=== PATIENT | female | born 1945 | race Caucasian/White ===

== ENCOUNTER 2017-06-11 10:30 | Outpatient (RCR) | payer MEDICARE, SELFPAY ==
[2017-06-11 11:09] LABS: International Normalized Ratio 2.6; Prothrombin Time (Protime)PT. 26.7 SECONDS (11.7-14.9)
== END 2017-06-11 11:00 | disposition home or self-care (01) ==
LOC: LAB 10:30
PROVIDERS: Family Provider Family Medicine; PCP Family Medicine; Visit Provider Internal Medicine Cardiovascular Disease
DX: I48.0 Paroxysmal atrial fibrillation (principal); Z51.81 Encounter for therapeutic drug level monitoring; Z79.01 Long term (current) use of anticoagulants
CPT/HCPCS: 36415; 85610

== ENCOUNTER 2017-07-14 08:56 | Outpatient (RCR) | payer MEDICARE, SELFPAY ==
[2017-07-14 10:05] LABS: International Normalized Ratio 1.9; Prothrombin Time (Protime)PT. 21.2 SECONDS (11.7-14.9)
[2017-07-14 14:20] LABS: Absolute Lymphocyte Count 1.88 X10^3/ul (0.83-4.51); Absolute Neutrophil Count 2.3 X10^3/uL (2.0-7.7); Basophil# 0.03 X10^3/uL; Basophil% 0.6 % (0-1); Eosinophil# 0.15 X10^3/uL; Hematocrit 35.2 % (37-47); Hemoglobin 10.8 g/dl (12.0-15.0); Lymphocyte # 1.88 X10^3/ul (4.0); Lymphocyte % 38.2 % (19-41); Mean Corp Hgb Conc 30.7 g/gl (32-36); Mean Corpuscular Hgb 30.1 pg (27.0-32.0); Mean Corpuscular Volume 98.1 fL (81-99); Mean Platelet Vol. 10.5 fl (6.2-12.0); Monocyte# 0.52 X10^3/uL; Monocyte% 10.6 % (0-10); Neutrophil # 2.33 X10^3/uL (2.7-7.7); Neutrophil % 47.4 % (47-70); POSITIVE COUNT NO; POSITIVE DIFFERENTIAL NO; POSITIVE MORPHOLOGY NO; Platelet Count 244 K/mm3 (150-450); RBC Distribution Width CV 17.7 % (11.6-14.6); RBC Distribution Width SD 62.9 fl (35.1-43.9); Red Blood Count 3.59 M/mm3 (4.2-5.4); White Blood Count 4.9 K/mm3 (4.4-11.0)
== END 2017-07-14 09:00 | disposition home or self-care (01) ==
LOC: LAB 08:56
PROVIDERS: Physician Assistant Medical; Family Provider Family Medicine; PCP Family Medicine; Visit Provider Internal Medicine Cardiovascular Disease
DX: I48.0 Paroxysmal atrial fibrillation (principal); Z51.81 Encounter for therapeutic drug level monitoring; I50.22 Chronic systolic (congestive) heart failure
CPT/HCPCS: 36415; 85025; 85610

== ENCOUNTER 2017-07-28 11:29 | Outpatient (RCR) | payer MEDICARE, SELFPAY ==
[2017-07-28 12:30] LABS: International Normalized Ratio 2.7; Prothrombin Time (Protime)PT. 28.9 SECONDS (11.7-14.9)
== END 2017-07-28 12:00 | disposition home or self-care (01) ==
LOC: LAB 11:29
PROVIDERS: Family Provider Family Medicine; PCP Family Medicine; Visit Provider Internal Medicine Cardiovascular Disease
DX: I48.0 Paroxysmal atrial fibrillation (principal); Z51.81 Encounter for therapeutic drug level monitoring
CPT/HCPCS: 36415; 85610

== ENCOUNTER 2017-08-25 08:54 | Outpatient (RCR) | payer MEDICARE, SELFPAY ==
[2017-08-25 09:22] LABS: International Normalized Ratio 1.8; Prothrombin Time (Protime)PT. 20.7 SECONDS (11.7-14.9)
== END 2017-08-25 09:00 | disposition home or self-care (01) ==
LOC: LAB 08:54
PROVIDERS: Family Provider Family Medicine; PCP Family Medicine; Visit Provider Internal Medicine Cardiovascular Disease
DX: I48.0 Paroxysmal atrial fibrillation (principal); Z51.81 Encounter for therapeutic drug level monitoring
CPT/HCPCS: 36415; 85610

== ENCOUNTER 2017-09-16 10:15 | Outpatient (RCR) | payer MEDICARE, SELFPAY ==
[2017-09-16 11:11] LABS: International Normalized Ratio 2.8; Prothrombin Time (Protime)PT. 29.5 SECONDS (11.7-14.9)
== END 2017-09-16 11:00 | disposition home or self-care (01) ==
LOC: LAB 10:15
PROVIDERS: Family Provider Family Medicine; PCP Family Medicine; Visit Provider Internal Medicine Cardiovascular Disease
DX: I48.0 Paroxysmal atrial fibrillation (principal); Z51.81 Encounter for therapeutic drug level monitoring; Z79.01 Long term (current) use of anticoagulants
CPT/HCPCS: 36415; 85610

== ENCOUNTER 2017-10-20 09:06 | Outpatient (RCR) | payer MEDICARE, SELFPAY ==
[2017-10-20 09:53] LABS: Prothrombin Time (Protime)PT. 31.6 SECONDS (11.7-14.9)
== END 2017-10-20 10:00 | disposition home or self-care (01) ==
LOC: LAB 09:06
PROVIDERS: Family Provider Family Medicine; PCP Family Medicine; Visit Provider Internal Medicine Cardiovascular Disease
DX: I48.0 Paroxysmal atrial fibrillation (principal); Z51.81 Encounter for therapeutic drug level monitoring; Z79.01 Long term (current) use of anticoagulants
CPT/HCPCS: 36415; 85610

== ENCOUNTER 2017-11-24 08:37 | Outpatient (RCR) | payer MEDICARE, SELFPAY ==
[2017-11-24 09:24] LABS: Prothrombin Time (Protime)PT. 31.1 SECONDS (11.7-14.9)
== END 2017-11-24 09:00 | disposition home or self-care (01) ==
LOC: LAB 08:37
PROVIDERS: Family Provider Family Medicine; PCP Family Medicine; Visit Provider Internal Medicine Cardiovascular Disease
DX: I48.0 Paroxysmal atrial fibrillation (principal); Z51.81 Encounter for therapeutic drug level monitoring; Z79.01 Long term (current) use of anticoagulants
CPT/HCPCS: 36415; 85610

== ENCOUNTER → 2017-12-15 12:09 | Outpatient (CLI) | payer MEDICARE, SELFPAY ==
--- NOTE | 2017-12-15 12:19 | RAD_ITS ---
STUDY: X-RAY - LUMBOSACRAL SPINE REASON FOR EXAM: Female, 72 years old. Back pain after shoveling TECHNIQUE: 7 view(s) of the lumbosacral spine were obtained. COMPARISON: None FINDINGS: Normal lumbar lordosis. There is no substantial scoliosis. There is normal alignment of the vertebrae. There is multilevel endplate spondylosis of the lumbar vertebrae. There is multi-level degenerative disc disease with multi-level disc space narrowing. Chronic moderate compression fractures of L3 and L4. Normal bilateral sacral ala, sacroiliac joints, and visualized sacrum. Normal visualized soft tissue structures. RAD/L/S Spine Comp/w Bending Views IMPRESSION: Moderate to severe degenerative changes with chronic compression deformities Electronically Signed: Jose Dietz DO at 10:44 EDT Tel , Service support ,
== END ==
PROVIDERS: Family Provider Family Medicine; PCP Family Medicine; Visit Provider Family Medicine
DX: M54.5 Low back pain (principal)
CPT/HCPCS: 72114

== ENCOUNTER 2017-12-31 11:30 | Outpatient (RCR) | payer MEDICARE, SELFPAY ==
[2017-12-31 12:55] LABS: International Normalized Ratio 2.6; Prothrombin Time (Protime)PT. 27.8 SECONDS (11.7-14.9)
== END 2017-12-31 13:00 | disposition home or self-care (01) ==
LOC: LAB 11:30
PROVIDERS: Family Provider Family Medicine; PCP Family Medicine; Visit Provider Internal Medicine Cardiovascular Disease
DX: I48.0 Paroxysmal atrial fibrillation (principal); Z51.81 Encounter for therapeutic drug level monitoring
CPT/HCPCS: 36415; 85610

== ENCOUNTER 2018-01-03 10:37 | Emergency (ER) | payer MEDICARE, SELFPAY ==
[2018-01-03 10:40] VITALS: BP 134/69; PULSE 77; RESP 14; TEMP 36.3; O2SAT 99; BMI 24.2
--- NOTE | 2018-01-03 10:43 | RAD_ITS ---
STUDY: X-RAY - LEFT ANKLE REASON FOR EXAM: Increased pain and swelling status post fall several days ago. TECHNIQUE: 3 view(s) of the ankle. COMPARISON: None. FINDINGS: There is osteopenia. Normal visualized distal tibia and fibula. Normal medial and lateral malleoli. Normal tibiotalar articulation and ankle mortise. There are small plantar and posterior calcaneal enthesophytes. The visualized subtalar, talonavicular, calcaneocuboid and tarsal articulations are normal. There is soft tissue swelling. There is vascular calcification. RAD/Ankle min 3 Views IMPRESSION: Soft tissue swelling. Osteopenia. Small calcaneal enthesophytes. No demonstrated fracture. Electronically Signed: Kilo Irvin MD at 11:29 EDT Tel , Service support ,
--- NOTE | 2018-01-03 11:57 | ED.VISSUMM ---
- ER Visit Summary Date of Service: 01/03/18 Chief Complaint: Ankle pain History of Present Illness: The patient is a 72 F with left ankle pain for about 9 days. This happened when the patient injured her ankle, inverting it. She has noted pain to her bilateral malleoli and dorsal ankle. She has had ecchymosis into her foot and toes. She does take blood thinners and her last INR was 2.6 about 3 days ago. No other injuries. No history of DVT. Physical Examination: Afebrile and vitals unremarkable. Head is atraumatic. Left ankle is tender to palpation over the bilateral malleoli and dorsally. Foot shows ecchymosis at the toes and laterally. Skin is intact. No laxity or deformity. Good range of motion, but painful. Neurovascularly intact. Test Results: X-rays negative. Emergency Department Course and Treatment: Patient had x-rays. Declined pain medicine. We will treat with Aircast and crutches. Rest ice elevate. Patient did ask if this could be a blood clot. Pain is consistent with her injury. There is no calf pain or calf swelling. She is therapeutic on Coumadin. I advised that clots are possible but very unlikely. Declined ultrasound. Discharge. Treatment Plan: As above Disposition: Discharged Impression: 1. Left ankle sprain This note was generated with [employer] dictation software. It may contain incorrect words, spelling, and punctuation that were not noted in review of the chart prior to signing ED Disposition - Plan for ED Patient: Chief Complaint: Lower Extremity Injury Referrals: Michaela Mcfadden DO [Primary Care Provider] -
--- NOTE | 2018-01-03 11:59 | ED.DEP ---
ED Disposition - Plan for ED Patient: Chief Complaint: Lower Extremity Injury Instructions: ED Sprain Ankle W X Ray Referrals: Michaela Mcfadden DO [Primary Care Provider] -
[2018-01-03 12:00] VITALS: BP 124/87; PULSE 76; RESP 16; O2SAT 98
== END 2018-01-03 13:06 | disposition home or self-care (01) ==
LOC: ED 11:37
PROVIDERS: Emergency Provider Emergency Medicine; Family Provider Family Medicine; PCP Family Medicine
DX: S93.402A Sprain of unspecified ligament of left ankle, initial encounter (principal); I48.91 Unspecified atrial fibrillation; Z79.01 Long term (current) use of anticoagulants; Z79.899 Other long term (current) drug therapy; X50.1XXA Overexertion from prolonged static or awkward postures, initial encounter; Y93.89 Activity, other specified; Y92.89 Other specified places as the place of occurrence of the external cause; Y99.8 Other external cause status
CPT/HCPCS: 73610; 99283; A4216

== ENCOUNTER 2018-02-09 08:49 | Outpatient (RCR) | payer MEDICARE, SELFPAY ==
[2018-02-09 09:49] LABS: International Normalized Ratio 3.1; Prothrombin Time (Protime)PT. 31.9 SECONDS (11.7-14.9)
== END 2018-02-27 11:11 | disposition home or self-care (01) ==
LOC: LAB 08:49
PROVIDERS: Family Provider Family Medicine; PCP Family Medicine; Visit Provider Internal Medicine Cardiovascular Disease
DX: I48.0 Paroxysmal atrial fibrillation (principal); Z79.01 Long term (current) use of anticoagulants
CPT/HCPCS: 36415; 85610

== ENCOUNTER 2018-03-21 08:35 | Outpatient (RCR) | payer MEDICARE, SELFPAY ==
[2018-02-28 11:36] LABS: Prothrombin Time Fingerstick 27.3 SEC (11.9-14.4)
[2018-03-21 09:19] LABS: Prothrombin Time (Protime)PT. 31.2 SECONDS (11.7-14.9)
== END 2018-03-21 10:00 | disposition home or self-care (01) ==
LOC: LAB 08:35
PROVIDERS: Family Provider Family Medicine; PCP Family Medicine; Referring Provider Internal Medicine Cardiovascular Disease; Visit Provider Internal Medicine Cardiovascular Disease
DX: I48.0 Paroxysmal atrial fibrillation (principal); Z79.01 Long term (current) use of anticoagulants
CPT/HCPCS: 36415; 36416; 85610

== ENCOUNTER 2018-04-18 11:57 | Outpatient (RCR) | payer MEDICARE, SELFPAY ==
[2018-04-18 12:51] LABS: International Normalized Ratio 2.9; Prothrombin Time (Protime)PT. 30.5 SECONDS (11.7-14.9)
== END 2018-04-29 09:38 | disposition home or self-care (01) ==
LOC: LAB 11:57
PROVIDERS: Family Provider Family Medicine; PCP Family Medicine; Referring Provider Internal Medicine Cardiovascular Disease; Visit Provider Internal Medicine Cardiovascular Disease
DX: I48.0 Paroxysmal atrial fibrillation (principal); Z79.01 Long term (current) use of anticoagulants
CPT/HCPCS: 36415; 85610

== ENCOUNTER 2018-05-16 12:14 | Outpatient (RCR) | payer MEDICARE, SELFPAY ==
[2018-05-16 13:24] LABS: Prothrombin Time (Protime)PT. 22.8 SECONDS (11.7-14.9)
--- OUTSIDE RECORDS SUMMARY | 2018-08-18 02:30 | XMS RPT_ITS ---
:1945 Author Organization [place] Support Name Relationship Address Phone KENDELL GROSS Unavailable [address] + [place] [address] R Unavailable Unavailable Unavailable MICAELA COOPER Unavailable [address] + [place] [address] KENDELL GROSS Unavailable [address] + [place] [address] R Unavailable Unavailable Unavailable MICAELA COOPER Unavailable [address] + [place] [address] KENDELL GROSS Unavailable [address] + [place] [address] R Unavailable Unavailable Unavailable MICAELA COOPER Unavailable [address] + [place] [address] KENDELL GORSS Unavailable [address] + [place] [address] R Unavailable Unavailable Unavailable MICAELA COOPER Unavailable [address] + [place] [address] RENATO, KENDELL Unavailable [address] + [place] [address] R Unavailable Unavailable Unavailable MICAELA COOPER Unavailable [address] + [place] [address] ROBBY GROSSAN Unavailable [address] + [place] [address] R Unavailable Unavailable Unavailable MICAELA COOPER Unavailable [address] + [place] [address] RENATO, KENDELL Unavailable [address] + [place] [address] R Unavailable Unavailable Unavailable R Unavailable Unavailable Unavailable KENDELL GROSS Unavailable [address] + [place] [address] R Unavailable Unavailable Unavailable R Unavailable Unavailable Unavailable BAMBI GROSS Unavailable [address] + [place] [address] KENDELL GROSS Unavailable [address] + [place] [address] R Unavailable Unavailable Unavailable BAMBI GROSS Unavailable [address] + [place] [address] KENDELL GROSS Unavailable [address] + [place] [address] R Unavailable Unavailable Unavailable BAMBI GROSS Unavailable [address] + [place] [address] KENDELL GROSS Unavailable [address] + [place] [address] R Unavailable Unavailable Unavailable BAMBI GROSS Unavailable [address] + [place] [address] KENDELL GROSS Unavailable [address] + [place] [address] R Unavailable Unavailable Unavailable BAMBI GROSS Unavailable [address] + [place] [address] KENDELL GROSS Unavailable [address] + [place] [address] R Unavailable Unavailable Unavailable BAMBI GROSS Unavailable [address] + [place] [address] KENDELL GROSS Unavailable [address] + [place] [address] R Unavailable Unavailable Unavailable BAMBI GROSS Unavailable [address] + [place] [address] KENDELL GROSS Unavailable [address] + [place] [address] R Unavailable Unavailable Unavailable RENATO BAMBI Unavailable [address] + [place] [address] RENATO KENDELL Unavailable [address] [facility] [address] [address] + [place] [address] R Unavailable Unavailable Unavailable BAMBI GROSS Unavailable [address] + [place] [address] RENATO KENDELL Unavailable [address] [facility] [address] + [place] [address] R Unavailable Unavailable Unavailable RENATO BAMBI Unavailable [address] + [place] [address] ROBBY GROSSAN Unavailable [address] [place] [address] [address] + [place] [address] R Unavailable Unavailable Unavailable RENATO, BAMBI Unavailable [address] + [place] [address] ROBBY GROSSAN Unavailable [address] [facility] [address] + [place] [address] R Unavailable Unavailable Unavailable Care Team Providers Name Role Phone [facility], [place] Attending Unavailable Zia, [place] Referring Unavailable Malys, Michaela Primary Care Unavailable Zia, Anupam Attending Unavailable Zia, [place] Referring Unavailable Malys, Michaela Primary Care Unavailable Zia, Anupam Attending Unavailable Zia, Anupam Referring Unavailable Malys, Michaela Primary Care Unavailable Leelee Fernandez Attending Unavailable Malys, Michaela Referring Unavailable Malys, Michaela Primary Care Unavailable Zia, Anupam Attending Unavailable Malys, Michaela Referring Unavailable Malys, Michaela Primary Care Unavailable Malys, Michaela Attending Unavailable Malys, Michaela Referring Unavailable Malys, Michaela Primary Care Unavailable Zia, Anupam Attending Unavailable Zia, [place] Referring Unavailable Malys, Michaela Primary Care Unavailable Zia, Anupam Attending Unavailable Zia, Anupam Referring Unavailable Malys, Michaela Primary Care Unavailable Zia, [place] Attending Unavailable Zia, [place] Referring Unavailable Malys, Michaela Primary Care Unavailable Zia, [place] Attending Unavailable Zia, Anupam Referring Unavailable Malys, Michaela Primary Care Unavailable Zia, Anupam Attending Unavailable Zia, [place] Referring Unavailable Malys, Michaela Primary Care Unavailable Zia, Anupam Attending Unavailable Malys, Michaela Primary Care Unavailable Zia, [place] Attending Unavailable Zia, Anupam Referring Unavailable Malys, Michaela Primary Care Unavailable Malys, Michaela Attending Unavailable Malys, Michaela Referring Unavailable Malys, Michaela Primary Care Unavailable Zia, [place] Attending Unavailable Zia, Anupam Referring Unavailable Malys, Michaela Primary Care Unavailable Malys, Michaela Primary Care Unavailable Justin Cuellar Attending Unavailable Zia, Anupam Attending Unavailable Zia, Anupam Referring Unavailable Malys, Michaela Primary Care Unavailable Brook Gage Attending Unavailable Malys, Michaela Referring Unavailable Malys, Michaela Primary Care Unavailable JimLeelee Attending Unavailable Malys, Michaela Referring Unavailable Malys, Michaela Primary Care Unavailable PROBLEMS PROBLEMS DATE TYPE CONDITION / CODE ATTENDING STATUS SOURCE 05/30/2018 Unknown I48.0 - Paroxysmal [facility], [place] Active [facility] atrial fibrillation / Community I48.0(ICD-10) Hospital Repository 05/30/2018 Unknown Z79.899 - Other long Zia, [place] Active [facility] term (current) drug Community therapy / Hospital Z79.899(ICD-10) Repository 01/13/2018 Unknown Z95.0 - Presence of Leelee Fernandez Active [facility] cardiac pacemaker / Community Z95.0(ICD-10) Hospital Repository 01/13/2018 Unknown I50.22 - Chronic Leelee Fernandez Active [facility] systolic (congestive) Community heart failure / Hospital I50.22(ICD-10) Repository 01/13/2018 Unknown I49.5 - Sick sinus Leelee Fernandez Active [facility] syndrome / Community I49.5(ICD-10) Hospital Repository 01/12/2018 Unknown I42.8 - Other [facility]ia, [place] [facility] Active [facility] cardiomyopathies / Community I42.8(ICD-10) Hospital Repository 08/30/2017 Unknown Z51.81 - Encounter for Zia, Anupam Active [facility] therapeutic drug level Community monitoring / Hospital Z51.81(ICD-10) Repository PROCEDURES PROCEDURES No Procedure Records FoundRESULTS RESULTS PROTHROMBIN TIME W/INR Collected: 06/20/2018 Status: F Source: [facility] 9:41 AM [facility] REPOSITORY Order Comment: Comments: STANDING ORDER Comments: STANDING ORDER TYPE CODE TESTS RESULT OUT OF RANGE REFERENCE UNITS LAB L300.4150 11.7-14.9 SECONDS High PROTIME 28.4 LAB L300.4200 Normal INR 2.7 Performed By: #### L300.3900 #### [facility] [address] [place], [address] SCREENING MAMM (CAD), Observed: 06/20/2018 Status: F Source: [facility] BILAT 8:58 AM [facility] REPOSITORY [facility] Imaging Services [address] [place] [address] SCREENING MAMM (CAD), BILAT MR#: [id number] Acct: [id number] Name: JC GROSS Rep #: [id number] : 1945 F 72 From: David Cody MD PCP: Michaela Mcfadden DO Status: REG CLI Study: SCREENING MAMM (CAD), BILAT Date of Exam: 06/20/18 Exam# [id number] Ordering Dr: Michaela Mcfadden DO MAMMOGRAPHY - BILATERAL SCREENING REASON FOR EXAM: Female, 72 years old. Routine annual screening examination. PERTINENT HISTORY: Non-contributory. TECHNIQUE: Digital bilateral breast mago (3D mammographic acquisition) in the CC and MLO projections. 2-D mediolateral oblique (MLO) and craniocaudad (CC) views of both breasts were obtained. CAD: Full Field Digital Mammography with Computer Added Detection was performed. COMPARISON: Comparison is made with prior study dated March 26, 2017 and March 15, 2015. FINDINGS: Breast Composition: There are scattered areas of fibroglandular density. There are no dominant masses or suspicious calcifications. A battery pack from a pacemaker is seen in the left axillary region. No other significant abnormalities are identified. There has been no significant change since the prior study. BI/SCREENING MAMM (CAD), BILAT IMPRESSION: Stable bilateral screening mammogram. Yearly follow-up mammogram recommended. (A) ASSESSMENT CATEGORY: BIRADS Category 2: Benign. A letter regarding these results will be sent to the patient by the facility within 30 days. Approximately 10% of breast cancers are not detected by mammography. A normal mammogram should not delay biopsy of a clinically suspicious abnormality. 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 [place], [place], [address] PROTHROMBIN TIME W/INR Collected: 04/18/2018 Status: F Source: [facility] 12:10 PM [facility] REPOS[facility]ORY TYPE CODE TESTS RESULT OUT OF RANGE REFERENCE UNITS LAB L300.4150 11.7-14.9 SECONDS High PROTIME 30.5 LAB L300.4200 Normal INR 2.9 Performed By: #### L300.3900 #### [facility] [address] [place], [place], [address] PROTHROMBIN TIME W/INR Collected: 03/21/2018 Status: F Source: [facility] 8:37 AM [facility] REPOS[facility]ORY TYPE CODE TESTS RESULT OUT OF RANGE REFERENCE UNITS LAB L300.4150 11.7-14.9 SECONDS High PROTIME 31.2 LAB L300.4200 Normal INR 3.0 Performed By: #### L300.3900 #### [facility] [address] [place], [address] PROTIME W/INR Collected: 02/28/2018 Status: F Source: [facility] [place] 11:31 AM [facility] REPOSITORY TYPE CODE TESTS RESULT OUT OF REFERENCE UNITS RANGE LAB L9200.1001 11.9-14.4 SEC High PROTIME ISTAT 27.3 Result Comment: Reference Range 11.9 - 14.4 LAB L9200.2000 Normal INR ISTAT 2.40 Result Comment: Critical Value > 3.5 Performed By: #### L9200.0000 #### [facility] Point of Care [address] [place] [address] PROTHROMBIN TIME W/INR Collected: 02/09/2018 Status: F Source: [place] 8:57 AM [facility] REPOSITORY TYPE CODE TESTS RESULT OUT OF RANGE REFERENCE UNITS LAB L300.4150 11.7-14.9 SECONDS High PROTIME 31.9 LAB L300.4200 Normal INR 3.1 Performed By: #### L300.3900 #### [facility] [address] [place], [address] PACEMAKER CHECK Observed: 01/12/2018 Status: F Source: [place] 11:45 AM [facility] REPOSITORY [facility] [address] [place] [address] Pacemaker Check Date of Service: 01/12/18 110 MR#: [id number] Acct: [id number] Name: JC GROSS Rep #: [id number] : 1945 From: Leelee Fernandez Age/Sex: 72/F Location: [facility] [place] Status: Signed Billing Codes PM Device Codes: PM Dev Prog Eval, Dual 01/12/18 1104 <Electronically signed by Leelee Fernandez > Date Leelee Fernandez 01/12/18 1145<Electronically signed by Anupam Lizarraga MD> Cosigner Signature: Date (if applicable) Anupam Lizarraga MD CC: CARDIOLOGY VISIT Observed: 01/12/2018 Status: F Source: [facility] REPORT 11:12 AM [facility] REPOSITORY [facility] [facility] [place] [address] OFFICE VISIT Date of Service: 01/12/18 MR#: [id number] Acct: [id number] Name: JC GROSS Rep #: [id number] : 1945 Provider: Anupam Lizarraga MD Age/Sex: 72/F Location: [facility] [place] Status: Signed HPI HPI Chief Complaint: follow up Details: JC GROSS, is a 72 F who presents to the office today for a cardiovascular follow-up. She has a history of nonischemic cardiomyopathy, second-degree AV block with pacemaker placement and a history of atrial fibrillation.Heart catheterization in 2016 demonstrated normal coronary arteries with a reduced ejection fraction. From a cardiac standpoint, patient is doing well. She does not have any chest discomfort/heaviness/tightness. Her exercise tolerance is stable for her age. She does get SOB with exertion, she does not feel that this is any worse than previous. She does not have any orthopnea. She denies PND. She does not have any symptoms of congestive heart failure. She does not have any palpitations that she is aware of. She does not have any lightheadedness or dizziness. She does not have any near-syncope or syncope. She does not have any lower extremity edema. She does not have any symptoms of claudication. Intake Vital Signs01/12/18 Height 5 ft 6 in 01/12/18 Weight: 148 lb 01/12/18 Body Mass Index (BMI) 23.8 01/12/18 Blood Pressure 100/50 Intake Visit Reasons: 6 M FU; D[place]ell @ 10am Allergies No Known Allergies Allergy (Verified 01/12/18 10:32) Medications metoprolol succinate ER 50 mg tablet,extended release 24 hr 50 mg PO QDAY #90 tab 08/31/17 [Rx Confirmed 01/11/18] ramipril 1.25 mg capsule 2.5 mg PO DAILY #90 cap 11/12/17 [Rx Confirmed 01/11/18] warfarin 2 mg tablet 2 mg PO .COMPLEX #90 tab 11/12/17 [Rx Confirmed 01/11/18] warfarin 5 mg tablet 5 mg PO .COMPLEX #90 tab 11/12/17 [Rx Confirmed 01/11/18] PFSH Medical History Chronic systolic (congestive) heart failure (Chronic) Paroxysmal atrial fibrillation (Chronic) Sinoatrial node dysfunction (Chronic) Nonischemic cardiomyopathy (Chronic) AV block (Chronic) Elevated troponin (Resolved) Surgical History Cardiac pacemaker in situ (Chronic) Family History Brother Sudden cardiac Brother Myocardial infarction, Onset Age: 40 Heart disease Sister Hypertension Social History Smoking Status: Never smoker alcohol intake: never substance use type: does not use caffeine: Yes Type: coffee what type of physical activity do you participate in: bicycling frequency: daily duration: < 15 minutes/day seatbelt use: always do you feel safe at home: Yes ROS Const Const: Positive for other (compression fx in spine and sprained left foot); negative for fatigue, weakness, body ache, fever(s), headache(s), chills, frequent falls, night sweats, daytime sleepiness, difficulty sleeping, excessive sweating, weight gain, weight loss, increased appetite, poor appetite or anorexia Eyes Eyes: Negative for blind spots, loss of peripheral vision, transient loss of vision, blurry vision, change in vision, double vision, floaters, tunnel vision or other ENT ENT: Negative for headache(s), dizziness, hearing loss, tinnitus, Nosebleed/epistaxis, balance problems, post nasal drip, lip swelling, tongue swelling, bleeding gums, hoarseness, neck pain, dry mouth or other Cardio Chest Pain: No Palpitations: No Edema: None Muscle aches with walking: None Resp Respiratory: Positive for SOB with activity (occasional); negative for SOB at rest, SOB orthopnea\SOB lying down, Cough, Coughing up blood/hemoptysis, chest congestion, pain on inspiration, snoring, stridor, wheezing, crackles, paroxysmal nocturnal dyspnea or other GI GI: Negative nausea, vomiting, heartburn, constipation, belching, bloating, cramping, vomiting blood/hematemesis, bright, red blood in stools, black,tarry stools, loose stools, Difficulty Swallowing or other : Negative for hematuria, frequent nighttime urination/ nocturia, erectile dysfunction or abnormal vaginal bleeding Musc Musc: Negative for balance problems, muscle aches/ myalgia, muscle weakness or joint pain Skin Skin: Negative redness, non-healing lesions, rash, unusual bruising, skin ulcer, wounds, jaundice or other Neuro Neuro: Negative for weakness, headache(s), frequent falls, blurry vision, double vision, dizziness, lightheadedness, near syncope, syncope, orthostatic symptoms, confusion, memory loss, restless legs, vertigo, seizures, lack of coordination or other Ehsan Hematologic/Lymphatic: Negative for easy bleeding, easy bruising, enlarged lymph nodes or other Endo Endo: Negative for fatigue, excessive sweating, cold intolerance, heat intolerance, flushing, increased thirst/drinking, increased hunger, hair loss, hair growth or other Psych Psych: Negative for anxiety, depression, thoughts of harming anyone, thoughts of harming yourself, visual hallucinations, panic attacks or audible hallucinations Allergy Allergy/Immunology: Negative for lip swelling, Negative for tongue swelling, Negative for rash, Negative for throat swelling, Negative for hives Cardiology Exam Const Appearance: cooperative, healthy appearing, well developed, well groomed and no acute distress Nutritional Appearance: well nourished and average body habitus Orientation: alert, awake and oriented x3 Head Head: normal to inspection, normocephalic and atraumatic Ears: hearing grossly normal bilaterally and external ears normal Nose: external nose normal, nasal mucous membranes and turbinates normal, nares normal, septum normal, no nasal discharge Face and Sinus: face symmetric Mouth: oral mucosae normal, tongue normal, oropharynx normal and moist mucous membranes Teeth and gingiva: dentition normal Throat: posterior oropharynx normal, tonsils normal and uvula midline Eyes General: appearance normal, both eyes and all related structures Eyelids: eyelids normal Conjunctivae: conjunctivae normal Pupils: PERRL, normal by confrontation and accommodation normal EOM: EOM intact bilaterally Neck Neck: normal visual inspection, trachea midline and no JVD JVD: +5 Carotids: normal carotid upstroke and bounding pulses Chest Chest inspection: normal inspection of the chest, symmetric chest movement and normal respiratory effort Auscultation: Bilateral: Clear to Auscultation Cardio Palpation: normal PMI Rate: regular rate Rhythm: regular rhythm Heart sounds: S1 normal, S2 normal and normal, physiologic split S2; negative rub, gallop or murmur GI GI: normal to inspection, soft, no hepatosplenomegaly and bowel sounds present Neuro General: alert, awake, oriented x3, no focal sensory deficit, gait normal and moves all extremities Skin Skin: no rashes or lesions noted Extremities Pulses: Normal: Right Femoral Pulse, Left Femoral Pulse, Right Dorsalis Pedis Pulse, Left Dorsalis Pedis Pulse, Right Posterior Tibial Pulse, Left Posterior Tibial Pulse, Right Radial Pulse, Left Radial Pulse Lower Extremity Edema: None: Bilateral Musculoskel Musculoskeletal: No joint tenderness Psych Psychological: normal affect Assessment AND Plan 1. Cardiac pacemaker in situ Z95.0 Implant 2008 @ [place] Plan She does have a permanent pacemaker implanted and has been doing well. She is a paced V sensed 60 bpm. Battery longevity is over 4 years. She did have an episode of atrial flutter in November 2017. Otherwise lead impedances appeared to be normal and pacemaker function is normal no changes will be made she will continue here in the office. 2. Nonischemic cardiomyopathy I42.8 Plan Patient does not have any symptoms of congestive heart failure. She has not had any weight gain or lower extremity edema. We will continue to monitor her history, exam and echocardiograms as deemed appropriate. She is on an ЕЛЕНА inhibitor and beta-enrique. These medications will be continued without making any changes. 3. Paroxysmal atrial fibrillation I48.0 Plan She does have a history of paroxysmal atrial fibrillation flutter and the plan will be to continue her on her anticoagulation. She is worried about taking medications for her joints and arthritis but I told her that we would adjust her Coumadin as appropriate. At this particular time I would not suggest that we make any changes to her medical therapy. Thank you for allowing me to participate in the care of your patient. Please don't hesitate to call if any issues arise Plan Detail Follow Up 6 Months (mmm) Coding Level of Care Code Off vis,est,level 3 Diagnoses Cardiac pacemaker in situ Z95.0 Nonischemic cardiomyopathy I42.8 Paroxysmal atrial fibrillation I48.0 Coding Level of Care Code Off vis,est,level 3 Diagnoses Cardiac pacemaker in situ Z95.0 Nonischemic cardiomyopathy I42.8 Paroxysmal atrial fibrillation I48.0 01/12/18 1112 <Electronically signed by Anupam Lizarraga MD> Date Anupam Lizarraga MD Cosigner Signature: Date (if applicable) CC: Michaela Mcfadden DO EMERGENCY DEPARTMENT Observed: 01/04/2018 Status: F Source: [facility] SUMMARY 7:[address] [facility] Medical Records Department [address] [place] [id number] Emergency Department Summary 01/03/18 1157 MR#: [id number] Acct: [id number] Name: JC GROSS Rep #: [id number] : 1945 72 From: Justin Cuellar MD PCP: Michaela Mcfadden DO Status: DEP ER - ER Visit Summary Date of Service: 01/03/18 Chief Complaint: Ankle pain History of Present Illness: The patient is a 72 F with left ankle pain for about 9 days. This happened when the patient injured her ankle, inverting it. She has noted pain to her bilateral malleoli and dorsal ankle. She has had ecchymosis into her foot and toes. She does take blood thinners and her last INR was 2.6 about 3 days ago. No other injuries. No history of DVT. Physical Examination: Afebrile and vitals unremarkable. Head is atraumatic. Left ankle is tender to palpation over the bilateral malleoli and dorsally. Foot shows ecchymosis at the toes and laterally. Skin is intact. No laxity or deformity. Good range of motion, but painful. Neurovascularly intact. Test Results: X-rays negative. Emergency Department Course and Treatment: Patient had x-rays. Declined pain medicine. We will treat with Aircast and crutches. Rest ice elevate. Patient did ask if this could be a blood clot. Pain is consistent with her injury. There is no calf pain or calf swelling. She is therapeutic on Coumadin. I advised that clots are possible but very unlikely. Declined ultrasound. Discharge. Treatment Plan: As above Disposition: Discharged Impression: 1. Left ankle sprain This note was generated with Audibase[employer] software. It may contain incorrect words, spelling, and punctuation that were not noted in review of the chart prior to signing ED Disposition - Plan for ED Patient: Chief Complaint: Lower Extremity Injury Referrals: Michaela Mcfadden DO [Primary Care Provider] - What to do if you have Problems For any increased pain, shortness of breath, bleeding, nausea or vomiting, chest pain, or any unexpected problems, contact your Primary Care Provider. Call [facility] ([phone]) or report to the closest Emergency Room. Call 911 if necessary. 01/04/18 0755 <Electronically signed by Justin Cuellar MD> Date Justin Cuellar MD Cosigner Signature (If Indicated): Date CC: Michaela Mcfadden DO DISCHARGE INSTRUCTION Observed: 01/04/2018 Status: F Source: [facility] 7:55 AM [facility] REPOSITORY [facility] Medical Records Department [address] [place] [address] Discharge Instruction 01/03/18 1159 MR#: [id number] Acct: [id number] Name: JC GROSS Iveth Rep #: [id number] : 1945 72 From: Justin Cuellar MD PCP: Michaela Mcfadden DO Status: [facility] ER ED Disposition - Plan for ED Patient: Chief Complaint: Lower Extremity Injury Instructions: ED Sprain Ankle W X Ray Referrals: Michaela Mcfadden DO [Primary Care Provider] - What to do if you have Problems For any increased pain, shortness of breath, bleeding, nausea or vomiting, chest pain, or any unexpected problems, contact your Primary Care Provider. Call [facility] ([phone]) or report to the closest Emergency Room. Call 911 if necessary. 01/04/18 0758 <Electronically signed by Justin uCellar MD> Date Justin Cuellar MD Cosigner Signature (If Indicated): Date CC: Michaela Mcfadden DO ANKLE MIN 3 VIEWS Observed: 01/03/2018 Status: F Source: [place] 10:44 AM [facility] REPOSITORY [facility] Imaging Services [address] [place] [id number] Ankle min 3 Views MR#: [id number] Acct: [id number] Name: JC GROSS Rep #: [id number] : 1945 F 72 From: Kilo Irvin MD PCP: Michaela Mcfadden DO Status: PRE ER Study: Ankle min 3 Views Date of Exam: 01/03/18 Exam# [id number] Ordering Dr: Justin Cuellar MD STUDY: X-RAY - LEFT ANKLE REASON FOR EXAM: Increased pain and swelling status post fall several days ago. TECHNIQUE: 3 view(s) of the ankle. COMPARISON: None. FINDINGS: There is osteopenia. Normal visualized distal tibia and fibula. Normal medial and lateral malleoli. Normal tibiotalar articulation and ankle mortise. There are small plantar and posterior calcaneal enthesophytes. The visualized subtalar, talonavicular, calcaneocuboid and tarsal articulations are normal. There is soft tissue swelling. There is vascular calcification. RAD/Ankle min 3 Views IMPRESSION: Soft tissue swelling. Osteopenia. Small calcaneal enthesophytes. No demonstrated fracture. Electronically Signed: Kilo Irvin MD at 11:29 EDT Tel , Service support , CC: Justin Cuellar MD; Michaela Mcfadden DO Room Cooler Installer: Signed PROTHROMBIN TIME W/INR Collected: 12/31/2017 Status: F Source: [facility] 11:37 AM [facility] REPOSITORY TYPE CODE TESTS RESULT OUT OF RANGE REFERENCE UNITS LAB L300.4150 11.7-14.9 SECONDS High PROTIME 27.8 LAB L300.4200 Normal INR 2.6 Performed By: #### L300.3900 #### [facility] Laboratory [address] [facility] [place], [address] L/S SPINE COMP/W Observed: 12/15/2017 Status: F Source: [place] BENDING VIEWS 12:20 PM [facility] REPOSITORY [facility] Imaging Services [address] [place] [address] L/S Spine Comp/w Bending Views MR#: [id number] Acct: [id number] Name: JC GROSS Rep #: [id number] : 1945 F 72 From: Jose Dietz DO PCP: Michaela Mcfadden DO Status: REG CLI Study: L/S Spine Comp/w Bending Views Date of Exam: 12/15/17 Exam# [id number] Ordering Dr: Michaela Mcfadden DO STUDY: X-RAY - LUMBOSACRAL SPINE REASON FOR EXAM: Female, 72 years old. Back pain after shoveling TECHNIQUE: 7 view(s) of the lumbosacral spine were obtained. COMPARISON: None FINDINGS: Normal lumbar lordosis. There is no substantial scoliosis. There is normal alignment of the vertebrae. There is multilevel endplate spondylosis of the lumbar vertebrae. There is multi-level degenerative disc disease with multi-level disc space narrowing. Chronic moderate compression fractures of L3 and L4. Normal bilateral sacral ala, sacroiliac joints, and visualized sacrum. Normal visualized soft tissue structures. RAD/L/S Spine Comp/w Bending Views IMPRESSION: Moderate to severe degenerative changes with chronic compression deformities Electronically Signed: Jose Dietz DO at 10:44 EDT Tel , Service support , CC: Michaela Mcfadden DO Room Cooler Installer: Signed PROTHROMBIN TIME W/INR Collected: 11/24/2017 Status: F Source: [place] 8:38 AM [facility] REPOSITORY TYPE CODE TESTS RESULT OUT OF RANGE REFERENCE UNITS LAB L300.4150 11.7-14.9 SECONDS High PROTIME 31.1 LAB L300.4200 Normal INR 3.0 Performed By: #### L300.3900 #### [facility] Laboratory [address] [facility]. [place], [place], [address] PROTHROMBIN TIME W/INR Collected: 10/20/2017 Status: F Source: [place] 9:15 AM [facility] REPOSITORY TYPE CODE TESTS RESULT OUT OF RANGE REFERENCE UNITS LAB L300.4150 11.7-14.9 SECONDS High PROTIME 31.6 LAB L300.4200 Normal INR 3.0 Performed By: #### L300.3900 #### [facility] [address] [facility]. [place], [place], [address] PROTHROMBIN TIME W/INR Collected: 09/16/2017 Status: F Source: [place] 10:17 AM [facility] REPOSITORY TYPE CODE TESTS RESULT OUT OF RANGE REFERENCE UNITS LAB L300.4150 11.7-14.9 SECONDS High PROTIME 29.5 LAB L300.4200 Normal INR 2.8 Performed By: #### L300.3900 #### [facility] Laboratory [address] [place], [address] PROTHROMBIN TIME W/INR Collected: 08/25/2017 Status: F Source: [place] 8:59 AM [facility] REPOSITORY TYPE CODE TESTS RESULT OUT OF RANGE REFERENCE UNITS LAB L300.4150 11.7-14.9 SECONDS High PROTIME 20.7 LAB L300.4200 Normal INR 1.8 Performed By: #### L300.3900 #### [facility] [address] [place], [address] PROTHROMBIN TIME W/INR Collected: 07/28/2017 Status: F Source: [place] 11:48 AM [facility] REPOSITORY TYPE CODE TESTS RESULT OUT OF RANGE REFERENCE UNITS LAB L300.4150 11.7-14.9 SECONDS High PROTIME 28.9 LAB L300.4200 Normal INR 2.7 Performed By: #### L300.3900 #### [facility] [address] [place], [address] OFFICE VISIT REPORT Observed: 07/27/2017 Status: F Source: [place] 7:24 PM [facility] REPOSITORY [facility] [address] [place] [address] OFFICE VISIT Date of Service: 07/14/17 MR#: [id number] Acct: [id number] Patient: JC GROSS Rep #: [id number] : 1945 Provider: Leelee Fernandez Age/Sex: 71/F Location: [facility] Status: Signed Comments Summary Comments: Dual Chamber Pacemaker Evaluation: Interrogation shows 398 MS episodes, 0% total time or 12.3 hrs and 1 NSVT episode since 01/06/17. Patient on Coumadin. Left pectoral pocket/incision w/o s/s of infection or erosion. Pt offers no cardiac complaints. Presenting rhythm shows AAI pacing @ 60 ppm. CHEMISTRY DEPARTMENT CHAIR=2%. battery longevity approx 5 yrs. Lead impedances, sensing and pace/sense thresholds remain stable. No parameter changes made. Counters cleared. Next f/u appt scheduled for in 6 mos. Device Device Date Interviewed: 07/14/17 Follow-up Location: in office Interview Reason: routine follow up Gate Technician: Telecardia Name: Emilio 60 Model: S606 Serial #: [id number] Implant Date: 05/14/09 Year(s): 8 Implant Physician: Dr. Gonzalo Barker/[facility] Patient Characteristics Atrial Indication: sick sinus syndrome Patient Substrate: Nonischemic cardiomyopathy Ejection fraction %: 50 to 54 By: Echo Underlying rhythm: Sinus bradycardia Pacemaker Dependent: No Device Characteristics Device: Dual Chamber Type: Pacemaker Remote Follow-Up: No Device Physical Exam Yes Incision well healed Leads Lead #1 Gate Technician Lead 1: [place] [place] Model Lead 1: 1699TC Serial# Lead 1: [id number] Date Implanted Lead 1: 05/14/09 Position Lead 1: RA Lead #2 Gate Technician Lead 2: Guidant Model Lead 2: 4136 Serial# Lead 2: [id number] Date Implanted Lead 2: 05/14/09 Position Lead 2: RV Diagnostics Pacing % RA Pacin % RV Pacin Mode Switching Total # Episodes: 398 % Mode switched: 0 Arrhythmias Non-Sust Episodes: 1 Measurements Battery Magnet Rate (bmp): 100 Predicted Remaining Longevity (months or years): 5 years RA Measurements Signal Amplitude (mV): 0.9 Impedance (Ohms): 380 Threshold Voltage: 0.6 @ PW(ms): 0.5 RV Measurements Signal Amplitude (mV): 12 Impedance (Ohms): 600 Threshold Voltage: 0.7 @ PW(ms): 0.4 Maximino Settings Pacemaker Mode: DDD Base Rate: 60 bpm Max Track Rate: 120 bpm Maximum AV Delay: 300 msec Billing Codes PM Device Codes: PM Dev Prog Eval, Dual Assessment AND Plan Problems 1. Chronic systolic (congestive) heart failure I50.22 2. Paroxysmal atrial fibrillation I48.0 3. Cardiac pacemaker in situ Z95.0 Implant 2009 @ [employer] 4. Sinoatrial node dysfunction I49.5 5. Nonischemic cardiomyopathy I42.8 6. FH: sudden cardiac (SCD) Z82.41 7. AV block I44.30 07/19/17 1544 <Electronically signed by Leelee Fernandez > Date Leelee Fernandez 07/27/171923<Electronically signed by Anupam Lizarraga MD> Cosigner Signature: Date (if applicable) Anupam Lizarraga MD CC: CARDIOLOGY VISIT Observed: 07/15/2017 Status: F Source: [facility] REPORT 4:54 PM [facility] REPOSITORY [facility] [address] [place] [address] OFFICE VISIT Date of Service: 07/14/17 MR#: [id number] Acct: [id number] Name: JC GROSS Rep #: [id number] : 1945 Provider: Brook Gage Age/Sex: 71/F Location: [facility] Status: Signed HPI HPI Details: JC GROSS, is a 71 F who presents to the office today for a cardiovascular follow-up. She has a history of nonischemic cardiomyopathy, second-degree AV block with pacemaker placement and a history of atrial fibrillation. Heart catheterization in 2015 demonstrated normal coronary arteries with a reduced ejection fraction. Patient underwent a limited echocardiogram in December 2016 which demonstrated an ejection fraction of 40%. From a cardiac standpoint, patient is doing well. She does not have any chest discomfort/heaviness/tightness. Her exercise tolerance is stable for her age. She does get SOB with exertion, she does not feel that this is any worse than previous. She does not have any orthopnea. She denies PND. She does not have any symptoms of congestive heart failure. She does not have any palpitations that she is aware of. She does not have any lightheadedness or dizziness. She does not have any near-syncope or syncope. She does not have any lower extremity edema. She does not have any symptoms of claudication. Intake Vital Signs07/14/17 Height 5 ft 5 in 07/14/17 Weight: 152 lb 07/14/17 Body Mass Index (BMI) 25.2 07/14/17 Blood Pressure 122/70 07/14/17 Blood Pressure Location Lt brachial Intake Visit Reasons: 6 M FU / PACER 10:00 Apprenticeship Consultant Required: No Accompanied by: None Is patient in pain?: No Allergies metoprolol Allergy (Verified 07/14/17 09:43) see comment Medications Ramipril [Altace] 2.5 mg PO DAILY 01/31/16 [History Confirmed 05/26/16] Warfarin Sodium [Coumadin] 5 mg PO TU 05/26/16 [History Confirmed 06/11/17] Warfarin Sodium [Coumadin] 7 mg PO SUMOWETHFRSA 05/26/16 [History Confirmed 06/11/17] metoprolol succinate ER 50 mg tablet,extended release 24 hr 50 mg PO QDAY tab 07/14/17 [History Confirmed 07/14/17] Ejection fraction %: 40 to 44 PFSH Medical History Chronic systolic (congestive) heart failure (Chronic) Paroxysmal atrial fibrillation (Chronic) Sinoatrial node dysfunction (Chronic) Nonischemic cardiomyopathy (Chronic) AV block (Chronic) Elevated troponin (Resolved) Surgical History Cardiac pacemaker in situ (Chronic) Family History Brother Sudden cardiac Brother Myocardial infarction, Onset Age: 40 Heart disease Sister Hypertension Social History Smoking Status: Never smoker alcohol intake: never substance use type: does not use caffeine: Yes Type: coffee what type of physical activity do you participate in: bicycling frequency: daily duration: < 15 minutes/day seatbelt use: always do you feel safe at home: Yes ROS Const Const: Negative for weakness, fatigue, fever(s) or headache(s) Eyes Eyes: Negative for blind spots, loss of peripheral vision or transient loss of vision ENT ENT: Negative for headache(s), Negative for dizziness, Negative for tinnitus, Negative for Nosebleed/epistaxis Cardio Chest Pain: No Palpitations: Positive for No Edema: None Muscle aches with walking: None Resp Respiratory: Positive for SOB with activity; negative for SOB at rest or SOB orthopnea\SOB lying down GI GI: Negative nausea, vomiting, heartburn or vomiting blood/hematemesis : Negative for hematuria Musc Musc: Negative for muscle aches/ myalgia Neuro Neuro: Negative for weakness, Negative for headache(s), Negative for dizziness, Negative for near syncope, Negative for syncope, Negative for lightheadedness Ehsan Hematologic/Lymphatic: Negative for easy bleeding Endo Endo: Negative for fatigue Cardiology Exam Const Appearance: cooperative, no acute distress and well developed Orientation: alert, awake and oriented x3 Head Head: normocephalic and atraumatic Mouth: moist mucous membranes Eyes General: appearance normal, both eyes and all related structures Conjunctivae: conjunctivae normal Pupils: PERRL EOM: EOM intact bilaterally Neck Neck: normal visual inspection, no lymphadenopathy and no JVD Carotids: Negative bruit Neck Mass: Negative Neck mass Chest Chest inspection: normal inspection of the chest, symmetric chest movement and Pacemaker/ICD Yes left pectoral incision Auscultation: Bilateral: Clear to Auscultation Cardio Palpation: normal PMI Rate: regular rate Rhythm: regular rhythm Heart sounds: S1 normal and S2 normal; negative rub, gallop or murmur GI GI: normal to inspection, soft, no hepatosplenomegaly and bowel sounds present; negative tender Neuro General: alert, awake, oriented x3, CN's II-XI intact bilaterally and moves all extremities Extremities Pulses: Normal: Right Posterior Tibial Pulse, Left Posterior Tibial Pulse, Right Radial Pulse, Left Radial Pulse Lower Extremity Edema: None: Bilateral Psych Psychological: normal affect Assessment AND Plan 1. Nonischemic cardiomyopathy I42.8 Plan - EZRA Pineda Patient does not have any symptoms of congestive heart failure. She has not had any weight gain or lower extremity edema. We will continue to monitor her history, exam and echocardiograms as deemed appropriate. She is on an ЕЛЕНА inhibitor and beta-enrique. 2. Chronic a-fib I48.2 Plan - EZRA Pineda Patient is anticoagulated with a therapeutic INR goal of 2- 3. Would like to obtain a CBC to evaluate her blood counts as she is anticoagulated. 3. Cardiac pacemaker in situ Z95.0 Implant 2008 @ [place] Plan - EZRA Pineda Device is functioning appropriately. We will continue with regular scheduled pacemaker interrogations. Plan Detail Other Orders Orders: Additional Comments - EZRA Pineda The above patient was discussed with Dr. Lizarraga, he agrees with plan of care. Thank you for allowing us to participate in patient's plan of care, if you have any questions please do not hesitate to call. This note was generated using a voice recognition system and there may be incorrect words, spelling or punctuation errors that were not noted when reviewing the office note prior to saving. Follow Up 6 Months (STATISTICIAN MATHEMATICAL) Coding Level of Care Code Off vis,est,level 4 Diagnoses Nonischemic cardiomyopathy I42.8 Chronic a-fib I48.2 Cardiac pacemaker in situ Z95.0 Coding Level of Care Code Off vis,est,level 4 Diagnoses Nonischemic cardiomyopathy I42.8 Chronic a-fib I48.2 Cardiac pacemaker in situ Z95.0 07/14/17 1045 <Electronically signed by Brook Gage PA> Date Brook MUNGUIA 07/15/17 1654<Electronically signed by Anupam Lizarraga MD> Cosigner Signature: Date (if applicable) Anupam Lizarraga MD CC: Michaela Mcfadden DO CBC W/DIFF, AUTOMATED Collected: 07/14/2017 Status: F Source: [place] 11:51 AM [facility] REPOSITORY TYPE CODE TESTS RESULT OUT OF RANGE REFERENCE UNITS LAB L100.1000 4.4-11.0 K/mm3 Normal WBC 4.9 LAB L100.1200 4.2-5.4 M/mm3 Low RBC 3.59 LAB L100.1300 12.0-15.0 g/dl Low HGB 10.8 LAB L100.1400 37-47 % Low HCT 35.2 LAB L100.1500 81-99 fL Normal MCV 98.1 LAB L100.1600 27.0-32.0 pg Normal MCH 30.1 LAB L100.1700 32-36 g/gl Low MCHC 30.7 LAB L100.1810 11.6-14.6 % High RDW CV 17.7 LAB L100.1820 35.1-43.9 fl High RDW SD 62.9 LAB L100.1900 150-450 K/mm3 Normal PLT 244 LAB L100.2000 6.2-12.0 fl Normal MPV 10.5 LAB L100.2100 47-70 % Normal NEUT% 47.4 LAB L100.2200 19-41 % Normal LY% 38.2 LAB L100.2300 0-10 % High MONO% 10.6 LAB L100.2400 0-5 % Normal EO% 3.0 LAB L100.2500 0-1 % Normal BASO% 0.6 LAB L100.2550 0.0-0.9 % Normal IM GRAN % 0.200 Result Comment: IG% - Immature Granulocytes (promyelocytes, myelocytes and metamyelocytes) > 1% indicates that a LEFT SHIFT is Present. LAB L100.2620 2.0-7.7 X10 3/uL Normal Absolute Neut 2.3 LAB L100.2720 0.83-4.51 X10 3/ul Normal Absolute Lymph 1.88 Performed By: #### L100.0100 #### [facility] [address] [place], [address] PROTHROMBIN TIME W/INR Collected: 07/14/2017 Status: F Source: [place] 8:58 AM [facility] REPOSITORY TYPE CODE TESTS RESULT OUT OF RANGE REFERENCE UNITS LAB L300.4150 11.7-14.9 SECONDS High PROTIME 21.2 LAB L300.4200 Normal INR 1.9 Performed By: #### L300.3900 #### [facility] [address] [place], [address] ALLERGIES ALLERGIES DATE TYPE / CODE NAME / CODE REACTION SEVERITY SOURCE 01/12/2018 Drug No Known Unknown [facility] Allergy/4160 Allergies/F00 [place] [address](SNOMED 2673453(RXNOR Repository CT) M) 07/14/2017 Drug metoprolol/F0 see comment Unknown [facility] Allergy/4160 [id number]([place] [address](SNOMED RM) Repository CT) ENCOUNTERS ENCOUNTERS ADMIT/DISCHARGE ACCOUNT ADMITTING ENCOUNTER LOCATION SOURCE NUMBER CLASS 06/20/2018 [id number] Ambulatory [facility] ing:LAB Repository 06/20/2018 [id number] Ambulatory [facility] 0 [facility] ing:OPBI Repository 05/16/2018/ [id number] Ambulatory [facility] 8 2 [facility] ing:LAB Repository 04/18/2018/ [id number] Ambulatory [facility] 8 8 [facility] ing:LAB Repository 03/21/2018/ [id number] Ambulatory [facility] 8 0 [facility] ing:LAB Repository 02/09/2018/ [id number] Ambulatory [place] [facility] 8 7 [facility] ing:LAB Repository 01/12/2018/ [id number] Ambulatory [facility] [place] [facility] [place] Repository 01/12/2018/ [id number] Ambulatory [facility] [place] [facility] Repository 01/03/2018/ [id number] Emergency [facility] 8 6 [facility] ing:ED Repository 12/31/2017/ [id number] Ambulatory [facility] 8 9 [facility] ing:LAB Repository 12/15/2017 [id number] Ambulatory [facility] 0 [facility] ing:HPRAD Repository 11/24/2017/ [id number] Ambulatory [facility] 8 5 [facility] ing:LAB Repository 10/20/2017/ [id number] Ambulatory [facility] 8 5 [facility] ing:LAB Repository 09/16/2017/ [id number] Ambulatory [facility] 8 1 [facility] ing:LAB Repository 08/25/2017/ [id number] Ambulatory [facility] 8 6 [facility] ing:LAB Repository 07/28/2017/ [id number] Ambulatory [facility] 8 0 [facility] ing:LAB Repository 07/14/2017/ [id number] Ambulatory BMS[facility] [place] [facility] 5 [place] Repository 07/14/2017/ [id number] Ambulatory B[facility] [place] [facility] 8 [facility] Repository 07/14/2017/ [id number] Ambulatory [facility] 8 5 [facility] ing:LAB Repository PAYERS PAYERS ENCOUNTER GUARANTOR PAYER SUBSCRIBER SOURCE 06/20/2018 MARIA INES Primary JC [id number] Insurance:HUMANA HERSHBERGERDOB: Community [facility] MEDICARE [id number], Number: Repository [place] [address]Rdo: [id number] Date:6955-23-35IL BOX () [address] [place] [id number]: 06/20/2018 Secondary NOT GIVENUNK [place] Insurance:SELF PAY [facility] Number: Effective Repository Date:2018-05-30 06/20/2018 BAMBI Robledo Primary JC MARIAHBERGER15520 Insurance:HUMANA HERSHBERGERDOB: [facility] MEDICARE [facility] [id number], Number: Repository [place] [address]Gpc: [id number] Date:5392-41-49WA BOX () [address] [place] [id number]: 06/20/2018 Secondary NOT GIVENUNK [place] Insurance:SELF PAY [facility] Number: Effective Repository Date:2018-03-15 05/16/2018 BAMIB Robledo Primary JC Spears [id number] Insurance:HUMANA HERSHBERGERDOB: Community [place] MEDICARE PPOPolicy [id number] Community Hospital, Number: Repository [place] [address]Fwb: [id number] Date:6952-83-99ZG BOX () [address] [place] [address]ZN: 05/16/2018 Secondary NOT GIVENUNK [place] Insurance:SELF PAY [facility] Number: Effective Repository Date:2018-05-02 04/18/2018 BAMBI Robledo Primary JC [id number] Insurance:HUMANA HERSHBERGERDOB: Community [facility] MEDICARE [facility] [id number], Number: Repository [place] [address]Lgh: [id number] Date:6027-99-26LJ BOX () [address] [place] [address]AZ: 04/18/2018 Secondary NOT GIVENUNK [place] Insurance:SELF PAY [facility] Number: Effective Repository Date:2018-03-31 03/21/2018 BAMBI Robledo Primary JC Spears [id number] Insurance:HUMANA HERSHBERGERDOB: Community [facility] MEDIC[facility] PPOPolicy [id number] Community Hospital, Number: Repository [place] [address]Ahr: [id number] Date:7022-69-95RU BOX () [address] [place] [phone]: 03/21/2018 Secondary NOT GIVENUNK [place] Insurance:SELF PAY [facility] Number: Effective Repository Date:2018-02-28 02/09/2018 Bambi Robledo Primary JC Peñaoster [id number] Insurance:HUMANA HERSHBERGERDOB: Community [place] MED[facility]ARE PPOPolicy [id number], Number: Repository [place] [address]Mbl: [id number] Date:7700-82-97ET BOX () [address] [place] [phone]: 02/09/2018 Secondary NOT GIVENUNK [place] Insurance:SELF PAY [facility] Number: Effective Repository Date:2018-02-01 01/12/2018 Bambi Robledo Primary JC Peñaoster [id number] Insurance:HUMANA HERSHBERGERDOB: Community [place] MED[place]ARE PPOPolicy [id number] Hospital, Number: Repository [place] [address]Rnl: [id number] Date:8150-91-09GW BOX () [address] [place] [address]GT: 01/12/2018 Secondary NOT GIVENUNK [place] Insurance:SELF PAY [facility] Hospital Number: Effective Repository Date:2018-01-12 01/12/2018 Bambi Robledo Primary JC Spears [id number] Insurance:HUMANA HERSHBERGERDOB: Community [place] MEDICARE [facility] [id number], Number: Repository [place] [address]Qaz: [id number] Date:6608-83-50XR BOX () [address] [place] [phone]: 01/12/2018 Secondary NOT GIVENUNK [place] Insurance:SELF PAY [facility] Number: Effective Repository Date:2018-01-12 01/03/2018 Bambi Robledo Primary JC Spears [id number] Insurance:HUMANA HERSHBERGERDOB: Community [place] MEDICARE [facility] [id number], Number: Repository [place] [address]Wtd: [id number] Date:8838-73-94QD BOX () [address] [place] [address]IZ: 01/03/2018 Secondary NOT GIVENUNK [place] Insurance:SELF PAY [facility] Number: Effective Repository Date:2018-01-03 12/31/2017 Bambi Robledo Primary JC Spears [id number] Insurance:HUMANA HERSHBERGERDOB: Community [place] MEDICARE [facility] [id number], Number: Repository [place] [address]Dxv: [id number] Date:8758-31-08VK BOX () [address] [place] [address]LX: 12/31/2017 Secondary NOT GIVENUNK [place] Insurance:SELF PAY [facility] Number: Effective Repository Date:2017-11-26 12/15/2017 Bambi Robledo Primary JC Spears [id number] Insurance:HUMANA HERSHBERGERDOB: Community [place] MEDICARE [facility] [id number], Number: Repository [place] [address]Vih: [id number] Date:9464-23-58KR BOX () [address] [place] [address]SA: 12/15/2017 Secondary NOT GIVENUNK [place] Insurance:SELF PAY [facility] Number: Effective Repository Date:2017-12-15 11/24/2017 Bambi Robledo Primary JC Spears [id number] Insurance:HUMANA HERSHBERGERDOB: [place] MED[place] PPOPolicy [id number] Number[facility] Repository [place] [address]Fmp: [id number] Date:[id number] [address] () [address] [place] [id number]: 11/24/2017 Secondary NOT GIVENUNK Tory Insurance:SELF PAY [facility] Hospital Number: Effective Repository Date:2017-10-28 10/20/2017 Bambi Robledo Primary JC Spears [id number] Insurance:HUMANA HERSHBERGERDOB: [place] MED[place] PPOPolicy [id number], Number: Repository [place] [id number]: [id number] Date:7000-19-63QY BOX () [address] [place] [id number]: 10/20/2017 Secondary NOT GIVENUNK Tory Insurance:SELF PAY [facility] Hospital Number: Effective Repository Date:2017-09-28 09/16/2017 Bambi Robledo Primary JC Spears [id number] Insurance:HUMANA HERSHBERGERDOB: [place] MEDICARE OPolicy [id number], Number: Repository [place] [address]Iwh: [id number] Date:6018-94-61ZF BOX () [address] [place] [address]VN: 09/16/2017 Secondary NOT GIVENUNK Tory Insurance:SELF PAY [facility] Hospital Number: Effective Repository Date:2017-08-30 08/25/2017 Bambi Robledo Primary JC Spears [id number] Insurance:HUMANA HERSHBERGERDOB: [place] MED[place] OPolicy [id number], Number: Repository [place] [id number]: [id number] Date:2039-86-62SN B[address] () [address] [place] [id number]: 08/25/2017 Secondary NOT GIVENUNK Tory Insurance:SELF PAY [facility] Number: Effective Repository Date:2017-08-25 07/28/2017 Bambi Robledo Primary JC Spears [id number] Insurance:HUMANA HERSHBERGERDOB: Community [place] MEDICARE [facility] [id number], Number: Repository [place] [id number]: [id number] Date:[id number] B[address] () [address] [place] [address]CQ: 07/28/2017 Secondary NOT GIVENUNK [place] Insurance:SELF PAY [facility] Number: Effective Repository Date:2017-07-28 07/14/2017 Bambi Robledo Primary JC Spears [id number] Insurance:HUMANA HERSHBERGERDOB: [place] MEDICARE [facility] [id number], Number: Repository [place] [id number]: [id number] Date:2595-96-36PY B[address] () [address] [place] [address]UO: 07/14/2017 Secondary NOT GIVENUNK [place] Insurance:SELF PAY [facility] Hospital Number: Effective Repository Date:2017-07-08 07/14/2017 Bambi Robledo Primary JC Peñaoster [id number] Insurance:HUMANA HERSHBERGERDOB: [place] MEDICARE [facility] [id number], Number: Repository [place] [address]Kgh: [id number] Date:3805-88-44JL [address] () [address], [place] [address]OI: 07/14/2017 Secondary NOT GIVENUNK [place] Insurance:SELF PAY [facility] Number: Effective Repository Date:2017-05-05 07/14/2017 Bambi Constantino JC A Tory [id number] Insurance:HUMANA HERSHBERGERDOB: Community [place] [facility] [id number] [facility], Number: [place]ository [place] [address]Kwy: [id number] Date:3057-53-63NG [address]OX () [address], [place] [address]LB: 07/14/2017 Secondary NOT GIVENUNK Tory Insurance:SELF PAY [facility] Number: Effective Repository Date:2017-07-02
== END 2018-05-16 14:00 | disposition home or self-care (01) ==
LOC: LAB 12:14
PROVIDERS: Family Provider Family Medicine; PCP Family Medicine; Referring Provider Internal Medicine Cardiovascular Disease; Visit Provider Internal Medicine Cardiovascular Disease
DX: I48.0 Paroxysmal atrial fibrillation (principal); Z79.01 Long term (current) use of anticoagulants
CPT/HCPCS: 36415; 85610

== ENCOUNTER → 2018-06-20 08:53 | Outpatient (CLI) | payer MEDICARE, SELFPAY ==
[2018-01-12 10:36] VITALS: BMI 23.8
--- NOTE | 2018-06-20 08:58 | BI_ITS ---
MAMMOGRAPHY - BILATERAL SCREENING REASON FOR EXAM: Female, 72 years old. Routine annual screening examination. PERTINENT HISTORY: Non-contributory. TECHNIQUE: Digital bilateral breast mago (3D mammographic acquisition) in the CC and MLO projections. 2-D mediolateral oblique (MLO) and craniocaudad (CC) views of both breasts were obtained. CAD: Full Field Digital Mammography with Computer Added Detection was performed. COMPARISON: Comparison is made with prior study dated March 26, 2017 and March 15, 2015. FINDINGS: Breast Composition: There are scattered areas of fibroglandular density. There are no dominant masses or suspicious calcifications. A battery pack from a pacemaker is seen in the left axillary region. No other significant abnormalities are identified. There has been no significant change since the prior study. BI/SCREENING MAMM (CAD), BILAT IMPRESSION: Stable bilateral screening mammogram. Yearly follow-up mammogram recommended. (A) ASSESSMENT CATEGORY: BIRADS Category 2: Benign. A letter regarding these results will be sent to the patient by the facility within 30 days. Approximately 10% of breast cancers are not detected by mammography. A normal mammogram should not delay biopsy of a clinically suspicious abnormality. [id number] Electronically Signed: David Cody MD at 9:59 EST Tel [phone], Service support ,
--- OUTSIDE RECORDS SUMMARY | 2018-08-22 16:11 | XMS RPT_ITS ---
:1945 Author Organization [place] Support Name Relationship Address Phone KENDELL GROSS Unavailable [address] + [place] [address] R Unavailable Unavailable Unavailable MICAELA COOPER Unavailable [address] + [place] [address] KENDELL GROSS Unavailable [address] + [place] [address] R Unavailable Unavailable Unavailable MICAELA COOPER Unavailable [address] + [place] [address] KENDELL GROSS Unavailable [address] + [place] [address] R Unavailable Unavailable Unavailable MICAELA COOPER Unavailable [address] + [place] [address] KENDELL GROSS Unavailable [address] + [place] [address] R Unavailable Unavailable Unavailable MICAELA COOPER Unavailable [address] + [place] [address] RENATO, KENDELL Unavailable [address] + [place] [address] R Unavailable Unavailable Unavailable MICAELA COOPER Unavailable [address] + [place] [address] ROBBY GROSSAN Unavailable [address] + [place] [address] R Unavailable Unavailable Unavailable MICAELA COOPER Unavailable [address] + [place] [address] RENATO, KENDELL Unavailable [address] + [place] [address] R Unavailable Unavailable Unavailable R Unavailable Unavailable Unavailable KENDELL GROSS Unavailable [address] + [place] [address] R Unavailable Unavailable Unavailable R Unavailable Unavailable Unavailable BAMBI GROSS Unavailable [address] + [place] [address] KENDELL GROSS Unavailable [address] + [place] [address] R Unavailable Unavailable Unavailable BAMBI GROSS Unavailable [address] + [place] [address] KENDELL GROSS Unavailable [address] + [place] [address] R Unavailable Unavailable Unavailable BAMBI GROSS Unavailable [address] + [place] [address] KENDELL GROSS Unavailable [address] + [place] [address] R Unavailable Unavailable Unavailable BAMBI GROSS Unavailable [address] + [place] [address] KENDELL GROSS Unavailable [address] + [place] [address] R Unavailable Unavailable Unavailable BAMBI GROSS Unavailable [address] + [place] [address] KENDELL GROSS Unavailable [address] + [place] [address] R Unavailable Unavailable Unavailable BAMBI GROSS Unavailable [address] + [place] [address] KENDELL GROSS Unavailable [address] + [place] [address] R Unavailable Unavailable Unavailable BAMBI GROSS Unavailable [address] + [place] [address] KENDELL GROSS Unavailable [address] + [place] [address] R Unavailable Unavailable Unavailable RENATO BAMBI Unavailable [address] + [place] [address] RENATO KENDELL Unavailable [address] + [place] [address] R Unavailable Unavailable Unavailable RENATO BAMBI Unavailable [address] + [place] [address] RENATO KENDELL Unavailable [address] [facility] + [place] [address] R Unavailable Unavailable Unavailable RENATO, BAMBI Unavailable [address] + [place] [address] RENATO KENDELL Unavailable [address] [place] [address] [address] + [place] [address] R Unavailable Unavailable Unavailable RENATO, BAMBI Unavailable [address] + [place] [address] RENATO KENDELL Unavailable [address] [place] [address] [address] + [place] [address] R Unavailable Unavailable Unavailable Care Team Providers Name Role Phone Zia, Wing Attending Unavailable Zia, Wing Referring Unavailable Malys, Michaela Primary Care Unavailable Malys, Michaela Attending Unavailable Malys, Michaela Referring Unavailable Malys, Michaela Primary Care Unavailable Zia, Wing Attending Unavailable Zia, Wing Referring Unavailable Malys, Michaela Primary Care Unavailable Leelee Fernandez Attending Unavailable Malys, Michaela Referring Unavailable Malys, Michaela Primary Care Unavailable Brook Gage Attending Unavailable Malys, Michaela Referring Unavailable Malys, Michaela Primary Care Unavailable Zia, Anupam Attending Unavailable Malys, Michaela Primary Care Unavailable Zia, Wing Attending Unavailable Zia, Anupam Referring Unavailable Malys, Michaela Primary Care Unavailable Zia, Wing Attending Unavailable Zia, Wing Referring Unavailable Malys, Michaela Primary Care Unavailable Zia, Anupam Attending Unavailable Zia, Wing Referring Unavailable Malys, Michaela Primary Care Unavailable Zia, Wing Attending Unavailable Zia, Anupam Referring Unavailable Malys, Michaela Primary Care Unavailable Zia, Wing Attending Unavailable Zia, Wing Referring Unavailable Malys, Michaela Primary Care Unavailable Malys, Michaela Attending Unavailable Malys, Michaela Referring Unavailable Malys, Michaela Primary Care Unavailable Malys, Michaela Primary Care Unavailable Justin Cuellar Attending Unavailable Zia, Anupam Attending Unavailable Malys, Michaela Referring Unavailable Malys, Michaela Primary Care Unavailable JimSheelae Attending Unavailable Malys, Michaela Referring Unavailable Malys, Michaela Primary Care Unavailable Zia, Wing Attending Unavailable Zia, Anupam Referring Unavailable Malys, Michaela Primary Care Unavailable Zia, Anupam Attending Unavailable Zia, Wing Referring Unavailable Malys, Michaela Primary Care Unavailable Zia, Anupam Attending Unavailable Zia, Anupam Referring Unavailable Malys, Michaela Primary Care Unavailable Zia, Anupam Attending Unavailable Zia, Wing Referring Unavailable Malys, Michaela Primary Care Unavailable PROBLEMS PROBLEMS DATE TYPE CONDITION / CODE ATTENDING STATUS SOURCE 05/30/2018 Unknown I48.0 - Paroxysmal Zia, Wing Active [facility] atrial fibrillation / Community I48.0(ICD-10) Hospital Repository 05/30/2018 Unknown Z79.899 - Other long Zia, Wing Active [facility] term (current) drug Community therapy / Hospital Z79.899(ICD-10) Repository 01/13/2018 Unknown I50.22 - Chronic Leelee Fernandez Active [facility] systolic (congestive) Community heart failure / Hospital I50.22(ICD-10) Repository 01/13/2018 Unknown Z95.0 - Presence of Leelee Fernandez Active [facility] cardiac pacemaker / Community Z95.0(ICD-10) Hospital Repository 01/13/2018 Unknown I49.5 - Sick sinus Leelee Fernandez Active [facility] syndrome / Community I49.5(ICD-10) Hospital Repository 01/12/2018 Unknown I42.8 - Other Zia, Wing Active [facility] cardiomyopathies / Community I42.8(ICD-10) Hospital Repository 08/30/2017 Unknown Z51.81 - Encounter for Zia, Anupam Active [facility] therapeutic drug level Community monitoring / Hospital Z51.81(ICD-10) Repository PROCEDURES PROCEDURES No Procedure Records FoundRESULTS RESULTS PROTHROMBIN TIME W/INR Collected: 06/20/2018 Status: F Source: [place] 9:41 AM [facility] REPOSITORY Order Comment: Comments: STANDING ORDER Comments: STANDING ORDER TYPE CODE TESTS RESULT OUT OF RANGE REFERENCE UNITS LAB L300.4150 11.7-14.9 SECONDS High PROTIME 28.4 LAB L300.4200 Normal INR 2.7 Performed By: #### L300.3900 #### [facility] [address] [place], [address] SCREENING MAMM (CAD), Observed: 06/20/2018 Status: F Source: [place] BILAT 8:58 AM [facility] REPOSITORY [facility] Imaging Services [address] [place] [address] SCREENING MAMM (CAD), BILAT MR#: [id number] Acct: [id number] Name: JC GROSS Rep #: [id number] : 1945 F 72 From: David Cody MD PCP: Michaela Mcfadden DO Status: REG CLI Study: SCREENING MAMM (CAD), BILAT Date of Exam: 06/20/18 Exam# [id number] Ordering Dr: Michaela Mcfadden DO MAMMOGRAPHY - [...] delay biopsy of a clinically suspicious abnormality. [id number] Electronically Signed: David Cody MD at 9:59 EST Tel [phone], Service support , CC: Michaela Mcfadden DO [address]amp [address] Light: Signed PROTHROMBIN TIME W/INR Collected: 05/16/2018 Status: F Source: [place] 12:25 PM [facility] REPOSITORY Order Comment: Comments: STANDING ORDER Comments: STANDING ORDER TYPE CODE TESTS RESULT OUT OF RANGE REFERENCE UNITS LAB L300.4150 11.7-14.9 SECONDS High PROTIME 22.8 LAB L300.4200 Normal INR 2.0 Performed By: #### L300.3900 #### [facility] [address] [facility] [place], [place], [address] PROTHROMBIN TIME W/INR Collected: 04/18/2018 Status: F Source: [place] 12:10 PM [facility] REPOSITORY TYPE CODE TESTS RESULT OUT OF RANGE REFERENCE UNITS LAB L300.4150 11.7-14.9 SECONDS High PROTIME 30.5 LAB L300.4200 Normal INR 2.9 Performed By: #### L300.3900 #### [facility] [address] [place], [place], [address] PROTHROMBIN TIME W/INR Collected: 03/21/2018 Status: F Source: [place] 8:37 AM [facility] REPOSITORY TYPE CODE TESTS RESULT OUT OF RANGE REFERENCE UNITS LAB L300.4150 11.7-14.9 SECONDS High PROTIME 31.2 LAB L300.4200 Normal INR 3.0 Performed By: #### L300.3900 #### [facility] [address] [place], [address] PROTIME W/INR Collected: 02/28/2018 Status: F Source: [place] 11:31 AM [facility] REPOSITORY TYPE CODE TESTS RESULT OUT OF REFERENCE UNITS RANGE LAB L9200.1001 11.9-14.4 SEC High PROTIME ISTAT 27.3 Result Comment: Reference Range 11.9 - 14.4 LAB L9200.2000 Normal INR ISTAT 2.40 Result Comment: Critical Value > 3.5 Performed By: #### L9200.0000 #### [facility] Point of Care [address] [place] [address] PROTHROMBIN TIME W/INR Collected: 02/09/2018 Status: F Source: [place] 8:57 AM [facility] REPOSITORY TYPE CODE TESTS RESULT OUT OF RANGE REFERENCE UNITS LAB L300.4150 11.7-14.9 SECONDS High PROTIME 31.9 LAB L300.4200 Normal INR 3.1 Performed By: #### L300.3900 #### [facility] [address] [place], [address] PACEMAKER CHECK Observed: 01/12/2018 Status: F Source: [place] 11:45 AM [facility] REPOSITORY [facility] [address] [place] [address] Pacemaker Check Date of Service: 01/12/18 110 MR#: [id number] Acct: [id number] Name: JC GROSS Rep #: [id number] : 1945 From: Leelee Fernandez Age/Sex: 72/F Location: [facility] Status: Signed Billing Codes PM Device Codes: PM Dev Prog Eval, Dual 01/12/18 1104 <Electronically signed by Leelee Fernandez > Date Leelee Fernandez 01/12/18 1145<Electronically signed by Anupam Lizarraga MD> Cosigner Signature: Date (if applicable) Anupam Lizarraga MD CC: CARDIOLOGY VISIT Observed: 01/12/2018 Status: F Source: [place] REPORT 11:12 AM [facility] REPOSITORY [facility] [place] [address] OFFICE VISIT Date of Service: 01/12/18 MR#: [id number] Acct: [id number] Name: JC GROSS Rep #: [id number] : 1945 Provider: Anupam Lizarraga MD Age/Sex: 72/F Location: [facility] Status: Signed HPI HPI Chief Complaint: follow [...] pacemaker in situ Z95.0 Implant 2008 @ [employer] She does have a permanent pacemaker [...] EMERGENCY DEPARTMENT Observed: 01/04/2018 Status: F Source: [place] SUMMARY 7:55 AM [facility] Medical Records Department [address] [place] [address] Emergency Department Summary 01/03/18 1157 MR#: [id number] Acct: [id number] Name: JC GROSS Rep #: [id number] : 1945 72 From: Justin Cuellar MD [...] ankle sprain This note was generated with [employer] software. It may contain incorrect words, spelling, [...] problems, contact your Primary Care Provider. Call [facility] ([phone]) or report to the closest Emergency Room. Call 911 if necessary. 01/04/18 0755 <Electronically signed by Justin Cuellar MD> Date Justin Cuellar MD Cosigner Signature (If Indicated): Date CC: Michaela Mcfadden DO DISCHARGE INSTRUCTION Observed: 01/04/2018 Status: F Source: [place] 7:55 AM [facility] REPOSITORY [facility] Medical Records Department [address] [place] [address] Discharge Instruction 01/03/18 1159 MR#: [id number] Acct: [id number] Name: JC GROSS Iveth Rep #: [id number] : 1945 72 From: Justin Cuellar MD PCP: Michaela Mcfadden DO Status: [facility] ER ED Disposition - Plan for ED Patient: Chief Complaint: Lower Extremity Injury Instructions: ED Sprain Ankle W X Ray Referrals: Michaela Mcfadden DO [Primary Care Provider] - What to do if you have Problems For any increased pain, shortness of breath, bleeding, nausea or vomiting, chest pain, or any unexpected problems, contact your Primary Care Provider. Call [facility] ([phone]) or report to the closest Emergency Room. Call 911 if necessary. 01/04/18 0757 <Electronically signed by Justin Cuellar MD> Date Justin Cuellar MD Cosigner Signature (If Indicated): Date CC: Michaela Mcfadden DO ANKLE MIN 3 VIEWS Observed: 01/03/2018 Status: F Source: [place] 10:44 AM [facility] REPOSITORY [facility] Imaging Services [address] [place] [address] Ankle min 3 Views MR#: [id number] Acct: [id number] Name: JC GROSS Rep #: [id number] : 1945 F 72 From: Kilo Irvin MD PCP: Michaela Mcfadden DO Status: PRE ER Study: Ankle min 3 Views Date of Exam: 01/03/18 Exam# [id number] Ordering Dr: Justin Cuellar MD STUDY: X-RAY [...] CC: Justin Cuellar MD; Michaela Mcfadden DO [address]amp [address] Light: Signed PROTHROMBIN TIME W/INR Collected: 12/31/2017 Status: F Source: [place] 11:37 AM [facility] REPOSITORY TYPE CODE TESTS RESULT OUT OF RANGE REFERENCE UNITS LAB L300.4150 11.7-14.9 SECONDS High PROTIME 27.8 LAB L300.4200 Normal INR 2.6 Performed By: #### L300.3900 #### [facility] [address] [facility] [place], [address] L/S SPINE COMP/W Observed: 12/15/2017 Status: F Source: [place] BENDING VIEWS 12:20 PM [facility] REPOSITORY [facility] Imaging Services [address] [place] [address] L/S Spine Comp/w Bending Views MR#: [id number] Acct: [id number] Name: JC GROSS Rep #: [id number] : 1945 F 72 From: Jose Dietz DO PCP: Michaela Mcfadden DO Status: REG CLI Study: L/S Spine Comp/w Bending Views Date of Exam: 12/15/17 Exam# [id number] Ordering Dr: Michaela Mcfadden DO STUDY: X-RAY [...] Service support , CC: Michaela Mcfadden DO Lamp [address] Light: Signed PROTHROMBIN TIME W/INR Collected: 11/24/2017 Status: F Source: [place] 8:38 AM [facility] REPOSITORY TYPE CODE TESTS RESULT OUT OF RANGE REFERENCE UNITS LAB L300.4150 11.7-14.9 SECONDS High PROTIME 31.1 LAB L300.4200 Normal INR 3.0 Performed By: #### L300.3900 #### [facility] [address] [facility] [place], [place], [address] PROTHROMBIN TIME W/INR Collected: 10/20/2017 Status: F Source: [place] 9:15 AM [facility] REPOSITORY TYPE CODE TESTS RESULT OUT OF RANGE REFERENCE UNITS LAB L300.4150 11.7-14.9 SECONDS High PROTIME 31.6 LAB L300.4200 Normal INR 3.0 Performed By: #### L300.3900 #### [facility] [address] [facility] [place], [place], [address] PROTHROMBIN TIME W/INR Collected: 09/16/2017 Status: F Source: [place] 10:17 AM [facility] REPOSITORY TYPE CODE TESTS RESULT OUT OF RANGE REFERENCE UNITS LAB L300.4150 11.7-14.9 SECONDS High PROTIME 29.5 LAB L300.4200 Normal INR 2.8 Performed By: #### L300.3900 #### [facility] [address] [place], [address] PROTHROMBIN TIME W/INR Collected: 08/25/2017 Status: F Source: [place] 8:59 AM [facility] REPOSITORY TYPE CODE TESTS RESULT OUT OF RANGE REFERENCE UNITS LAB L300.4150 11.7-14.9 SECONDS High PROTIME 20.7 LAB L300.4200 Normal INR 1.8 Performed By: #### L300.3900 #### [facility] [address] [place], [address] PROTHROMBIN TIME W/INR Collected: 07/28/2017 Status: F Source: [place] 11:48 AM [facility] REPOSITORY TYPE CODE TESTS RESULT OUT OF RANGE REFERENCE UNITS LAB L300.4150 11.7-14.9 SECONDS High PROTIME 28.9 LAB L300.4200 Normal INR 2.7 Performed By: #### L300.3900 #### [facility] [address] [place], [address] OFFICE VISIT REPORT Observed: 07/27/2017 Status: F Source: [place] 7:24 PM [facility] REPOSITORY [facility] [address] [place] [address] OFFICE VISIT Date of Service: 07/14/17 MR#: [id number] Acct: [id number] Patient: JC GROSS Rep #: [id number] : 1945 Provider: Leelee Fernandez Age/Sex: 71/F Location: [facility] Status: Signed Comments Summary Comments: Dual Chamber Pacemaker Evaluation: Interrogation shows 398 MS episodes, 0% total time or 12.3 hrs and 1 NSVT episode since 01/06/17. Patient on Coumadin. Left pectoral pocket/incision w/o s/s of infection or erosion. Pt offers no cardiac complaints. Presenting rhythm shows AAI pacing @ 60 ppm. ELECTROPHYSIOLOGIST=2%. battery longevity approx 5 yrs. Lead impedances, sensing and pace/sense thresholds remain stable. No parameter changes made. Counters cleared. Next f/u appt scheduled for in 6 mos. 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 Gonzalo Barker/Jade Patient Characteristics Atrial Indication: sick sinus syndrome Patient Substrate: Nonischemic cardiomyopathy Ejection fraction %: 50 to 54 By: Echo Underlying rhythm: Sinus bradycardia Pacemaker Dependent: No Device Characteristics Device: Dual Chamber Type: Pacemaker Remote Follow-Up: No Device Physical Exam Yes Incision well healed Leads Lead #1 Rolling Mill Operator Lead 1: [employer] [place] Model Lead 1: 1699TC Serial# Lead 1: [id number] Date Implanted Lead 1: 05/14/09 Position Lead 1: RA Lead #2 Rolling Mill Operator Lead 2: Guidant Model Lead 2: 4136 Serial# Lead 2: [id number] Date Implanted Lead 2: 05/14/09 Position Lead [...] CARDIOLOGY VISIT Observed: 07/15/2017 Status: F Source: [place] REPORT 4:54 PM [facility] REPOSITORY [facility] [address] [place] [address] OFFICE VISIT Date of Service: 07/14/17 MR#: [id number] Acct: [id number] Name: JC GROSS Rep #: [id number] : 1945 Provider: Brook Gage Age/Sex: 71/F Location: [facility] Status: Signed HPI HPI Details: JC GROSS, [...] Reasons: 6 M FU / PACER 10:00 Staff Editor Required: No Accompanied by: None Is patient [...] pacemaker in situ Z95.0 Implant 2008 @ [employer] - EZRA Pineda Device is functioning [...] prior to saving. 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 [address] [place], [address] PROTHROMBIN TIME W/INR Collected: 07/14/2017 Status: F Source: [place] 8:58 AM [facility] REPOSITORY TYPE CODE TESTS RESULT OUT OF RANGE REFERENCE UNITS LAB L300.4150 11.7-14.9 SECONDS High PROTIME 21.2 LAB L300.4200 Normal INR 1.9 Performed By: #### L300.3900 #### [facility] [address] [place], [address] ALLERGIES ALLERGIES DATE TYPE / CODE NAME / CODE REACTION SEVERITY SOURCE 01/12/2018 Drug No Known Unknown [facility] Allergy/4160 Allergies/F00 [place] [address](SNOMED 9765580(RXNOR Repository CT) M) 07/14/2017 Drug metoprolol/F0 see comment Unknown [facility] Allergy/4160 [id number]([place] [address](SNOMED RM) Repository CT) ENCOUNTERS ENCOUNTERS ADMIT/DISCHARGE ACCOUNT ADMITTING ENCOUNTER LOCATION SOURCE NUMBER CLASS 06/20/2018 [id number] Ambulatory [facility] 5 [facility] ing:LAB Repository 06/20/2018 [id number] Ambulatory [place] 0 [facility] ing:OPBI Repository 05/16/2018/ [id number] Ambulatory [place] 8 2 [facility] ing:LAB Repository 04/18/2018/ [id number] Ambulatory [place] 8 8 [facility] ing:LAB Repository 03/21/2018/ [id number] Ambulatory [place] 8 0 [facility] ing:LAB Repository 02/09/2018/ [id number] Ambulatory [place] 8 7 [facility] ing:LAB Repository 01/12/2018/ [id number] Ambulatory [facility]:B [place] [facility] 3 [facility] Repository 01/12/2018/ [id number] Ambulatory [facility]Building:B [place] 8 8 [facility] Repository 01/03/2018/ [id number] Emergency [place] 8 6 [facility] ing:ED Repository 12/31/2017/ [id number] Ambulatory [place] [facility] 8 9 [facility] ing:LAB Repository 12/15/2017 [id number] Ambulatory [place] 0 [facility] ing:HPRAD Repository 11/24/2017/ [id number] Ambulatory [place] 8 5 [facility] ing:LAB Repository 10/20/2017/ [id number] Ambulatory [place] 8 5 [facility] ing:LAB Repository 09/16/2017/ [id number] Ambulatory [place] 8 1 [facility] ing:LAB Repository 08/25/2017/ [id number] Ambulatory [facility] [facility] 8 6 [facility] ing:LAB Repository 07/28/2017/ [id number] Ambulatory [place] [facility] 8 0 [facility] ing:LAB Repository 07/14/2017/ [id number] Ambulatory BMSBuilding:B [place] [facility] 5 [facility] Repository 07/14/2017/ [id number] Ambulatory BMSBuilding:B [place] [facility] 8 [facility] Repository 07/14/2017/ [id number] Ambulatory [place] 8 5 [facility] ing:LAB Repository PAYERS PAYERS ENCOUNTER GUARANTOR PAYER SUBSCRIBER SOURCE 06/20/2018 MARIA INES Primary JC MARIAHBERGER15520 Insurance:HUMANA HERSHBERGERDOB: Community [facility] MEDICARE [id number] Number: Repository [place] [address]Eac: [id number] Date:3591-50-86GG BOX () [address] [place] [phone]: 06/20/2018 Secondary NOT GIVENUNK [place] Insurance:SELF PAY [facility] Number: Effective Repository Date:2018-05-30 06/20/2018 BAMBI Robledo Primary JC MARIAHBERGER15520 Insurance:HUMANA HERSHBERGERDOB: [facility] MEDICARE [facility] [id number], Number: Repository [place] [address]Lpo: [id number] Date:0566-06-24SL BOX () [address] [place] [phone]: 06/20/2018 Secondary NOT GIVENUNK [facility] Insurance:SELF PAY [facility] Number: Effective Repository Date:2018-03-15 05/16/2018 BAMBI Robledo Primary JC Spears [id number] Insurance:HUMANA HERSHBERGERDOB: Community [place] MEDICARE PPOPolicy [id number], Number: Repository [place] [address]Upm: [id number] Date:7598-30-01KU [address]OX () [address] [place] [phone]: 05/16/2018 Secondary NOT GIVENUNK [place] Insurance:SELF PAY [facility] Number: Effective Repository Date:2018-05-02 04/18/2018 BAMBI Robledo Primary JC MARIAHBERGER15520 Insurance:HUMANA HERSHBERGERDOB: Community [facility] MEDICARE [facility] [id number], Number: Repository [place] [address]Fsz: [id number] Date:1206-42-68LT B[address] () [address] [place] [phone]: 04/18/2018 Secondary NOT GIVENUNK [place] Insurance:SELF PAY [facility]: Effective Repository Date:2018-03-31 03/21/2018 BAMBI Robledo Primary JC Spears [id number] Insurance:HUMANA HERSHBERGERDOB: Community [place] MEDICARE PPOPolicy [id number], Number: Repository [place] [address]Nge: [id number] Date:7584-47-77NT BOX () [address] [place] [phone]: 03/21/2018 Secondary NOT GIVENUNK [place] Insurance:SELF PAY [facility] Number: Effective Repository Date:2018-02-28 02/09/2018 Bambi Robledo Primary JC [place]oster [id number] Insurance:HUMANA HERSHBERGERDOB: Community [place] MEDICARE PPOPolicy [id number], [place], Number: Repository [place] [address]Ivt: [id number] Date:6588-11-69NF B[address] () [address] [place] [address]NO: 02/09/2018 Secondary NOT GIVENUNK [place] Insurance:SELF PAY [facility] Number: Effective Repository Date:2018-02-01 01/12/2018 Bambi Robledo Primary JC Peñaoster [id number] Insurance:HUMANA HERSHBERGERDOB: Community [place] MEDICARE PPOPolicy [id number] Medical [facility], [place], Number: Repository [place] [id number]: [id number] Date:4562-35-09CZ BOX () [address] [place] [address]OP: 01/12/2018 Secondary NOT GIVENUNK Tory Insurance:SELF PAY [facility] Hospital Number: Effective Repository Date:2018-01-12 01/12/2018 Bambi Robledo Primary JC Spears [id number] Insurance:HUMANA HERSHBERGERDOB: Community [place] MEDICARE [facility] [id number] Medical Center, [place], Number: [place]ository [place] [address]Xwp: [id number] Date:8102-58-51BN BOX () [address] [place] [address]MX: 01/12/2018 Secondary NOT GIVENUNK Tory Insurance:SELF PAY [facility] Number: Effective Repository Date:2018-01-12 01/03/2018 Bambi Robledo Primary JC Spears [id number] Insurance:HUMANA HERSHBERGERDOB: Community [place] MEDICARE [facility] [id number] Medical Center, [place], Number: [place]ository [place] [address]Wdn: [id number] Date:3010-92-02ZW BOX () [address] [place] [address]QS: 01/03/2018 Secondary NOT GIVENUNK Tory Insurance:SELF PAY [facility] Number: Effective Repository Date:2018-01-03 12/31/2017 Bambi Robledo Primary JC Spears [id number] Insurance:HUMANA HERSHBERGERDOB: Community [place] MEDICARE [facility] [id number] Medical Center, [place], Number: [place]ository [place] [address]Uhs: [id number] Date:0568-19-33SS BOX () [address] [place] [address]EP: 12/31/2017 Secondary NOT GIVENUNK [place] Insurance:SELF PAY [facility] Number: Effective Repository Date:2017-11-26 12/15/2017 Bambi Robledo Primary JC Spears [id number] Insurance:HUMANA HERSHBERGERDOB: Community [place] MEDICARE [facility] [id number] Medical Center, [place], Number: [place]ository [place] [address]Hnk: [id number] Date:7209-99-06AV BOX () [address] [place] [address]AN: 12/15/2017 Secondary NOT GIVENUNK [place] Insurance:SELF PAY [facility] Effective Repository Date:2017-12-15 11/24/2017 Bambi Robledo Primary JC Spears [id number] Insurance:HUMANA HERSHBERGERDOB: [place] MEDICARE PPOPolicy [id number] Medical Center, [place], Number: [place]ository [place] [address]Ajq: [id number] Date:5136-64-50NT BOX () [address] [place] [address]RL: 11/24/2017 Secondary NOT GIVENUNK Tory Insurance:SELF PAY [facility] Hospital Number: Effective Repository Date:2017-10-28 10/20/2017 Bambi Robledo Primary JC Spears [id number] Insurance:HUMANA HERSHBERGERDOB: [place] MEDICARE PPOPolicy [id number] Medical Center, [place], Number: [place]ository [place] [id number]: [id number] Date:7016-34-19CM BOX () [address] [place] [phone]: 10/20/2017 Secondary NOT GIVENUNK Tory Insurance:SELF PAY [facility] Number: Effective Repository Date:2017-09-28 09/16/2017 Bambi Robledo Primary JC Spears [id number] Insurance:HUMANA HERSHBERGERDOB: Community [place] MEDICARE OPolicy [id number] Medical Center, [place], Number: [place]ository [place] [address]Pgv: [id number] Date:2530-57-47UT BOX () [address] [place] [address]QN: 09/16/2017 Secondary NOT GIVENUNK Tory Insurance:SELF PAY [facility] Hospital Number: Effective Repository Date:2017-08-30 08/25/2017 Bambi Robledo Primary JC Spears [id number] Insurance:HUMANA HERSHBERGERDOB: [place] MEDICARE OPolicy [id number] Medical Center, [place], Number: [place]ository [place] [address]Gec: [id number] Date:2773-13-30UD BOX () [address] [place] [phone]: 08/25/2017 Secondary NOT GIVENUNK Tory Insurance:SELF PAY [facility] Number: Effective Repository Date:2017-08-25 07/28/2017 Bambi Robledo Primary JC Spears [id number] Insurance:HUMANA HERSHBERGERDOB: [place] MEDICARE [facility] [id number] Medical Center, [place], Number: [place]ository [place] [address]Alw: [id number] Date:7754-56-90PK BOX () [address] [place] [phone]: 07/28/2017 Secondary NOT GIVENUNK [place] Insurance:SELF PAY [facility] Number: Effective Repository Date:2017-07-28 07/14/2017 Bambi Robledo Primary JC Spears [id number] Insurance:HUMANA HERSHBERGERDOB: [place] MEDICARE [facility] [id number] Medical Center, [place], Number: [place]ository [place] [address]Wvq: [id number] Date:3448-18-13CV BOX () [address] [place] [phone]: 07/14/2017 Secondary NOT GIVENUNK [place] Insurance:SELF PAY [facility] Hospital Number: Effective Repository Date:2017-07-08 07/14/2017 Bambi Robledo Primary JC Peñaoster [id number] Insurance:HUMANA HERSHBERGERDOB: [place] MEDICARE [facility] [id number] Medical Center, [place], Number: [place]ository [place] [address]Jhf: [id number] Date:9779-42-45ZU BOX () [place] [address]XQ: 07/14/2017 Secondary NOT GIVENUNK Tory Insurance:SELF PAY [facility] Number: Effective Repository Date:2017-05-05 07/14/2017 Bambi Constantino JC A Tory [id number] Insurance:HUMANA HERSHBERGERDOB: Community [place] MEDICARE [facility]OPolmercy[facility] [id number] Medical Center, [place], Number: [place]ository [place] [address]Oel: [id number] Date:6513-91-22RJ [address] () [address], [place] [address]MC: 07/14/2017 Secondary NOT GIVENUNK Tory Insurance:SELF PAY [facility] Number: Effective Repository Date:2017-07-02
== END ==
PROVIDERS: Family Provider Family Medicine; PCP Family Medicine; Referring Provider Family Medicine; Visit Provider Family Medicine
DX: Z12.31 Encounter for screening mammogram for malignant neoplasm of breast (principal); I48.0 Paroxysmal atrial fibrillation; Z79.01 Long term (current) use of anticoagulants
CPT/HCPCS: 36415; 77063; 77067; 85610

== ENCOUNTER 2018-06-20 09:37 | Outpatient (RCR) | payer MEDICARE, SELFPAY ==
[2018-01-12 10:36] VITALS: BMI 23.8
[2018-06-20 11:44] LABS: International Normalized Ratio 2.7; Prothrombin Time (Protime)PT. 28.4 SECONDS (11.7-14.9)
--- OUTSIDE RECORDS SUMMARY | 2018-08-22 18:09 | XMS RPT_ITS ---
:1945 Author Organization [place] Support Name Relationship Address Phone KENDELL GROSS Unavailable [address] + [place] [address] R Unavailable Unavailable Unavailable MICAELA COOPER Unavailable [address] + [place] [address] KENDELL GROSS Unavailable [address] + [place] [address] R Unavailable Unavailable Unavailable MICAELA COOPER Unavailable [address] + [place] [address] KENDELL GROSS Unavailable [address] + [place] [address] R Unavailable Unavailable Unavailable MICAELA COOPER Unavailable [address] + [place] [address] KENDELL GROSS Unavailable [address] + [place] [address] R Unavailable Unavailable Unavailable MICAELA COOPER Unavailable [address] + [place] [address] RENATO, KENDELL Unavailable [address] + [place] [address] R Unavailable Unavailable Unavailable MICAELA COOPER Unavailable [address] + [place] [address] ROBBY GROSSAN Unavailable [address] + [place] [address] R Unavailable Unavailable Unavailable MICAELA COOPER Unavailable [address] + [place] [address] RENATO, KENDELL Unavailable [address] + [place] [address] R Unavailable Unavailable Unavailable R Unavailable Unavailable Unavailable KENDELL GROSS Unavailable [address] + [place] [address] R Unavailable Unavailable Unavailable R Unavailable Unavailable Unavailable BAMBI GROSS Unavailable [address] + [place] [address] KENDELL GROSS Unavailable [address] + [place] [address] R Unavailable Unavailable Unavailable BAMBI GROSS Unavailable [address] + [place] [address] KENDELL GROSS Unavailable [address] + [place] [address] R Unavailable Unavailable Unavailable BAMBI GROSS Unavailable [address] + [place] [address] KENDELL GROSS Unavailable [address] + [place] [address] R Unavailable Unavailable Unavailable BAMBI GROSS Unavailable [address] + [place] [address] KENDELL GROSS Unavailable [address] + [place] [address] R Unavailable Unavailable Unavailable BAMBI GROSS Unavailable [address] + [place] [address] KENDELL GROSS Unavailable [address] + [place] [address] R Unavailable Unavailable Unavailable BAMBI GROSS Unavailable [address] + [place] [address] KENDELL GROSS Unavailable [address] + [place] [address] R Unavailable Unavailable Unavailable BAMBI GROSS Unavailable [address] + [place] [address] KENDELL GROSS Unavailable [address] + [place] [address] R Unavailable Unavailable Unavailable RENATO BAMBI Unavailable [address] + [place] [address] RENATO KENDELL Unavailable [address] + [place] [address] R Unavailable Unavailable Unavailable RENATO BAMBI Unavailable [address] + [place] [address] RENATO KENDELL Unavailable [address] + [place] [address] R Unavailable Unavailable Unavailable ERNATO, BAMBI Unavailable [address] + [place] [address] RENATO KENDELL Unavailable [address] [place] [address] [address] + [place] [address] R Unavailable Unavailable Unavailable RENATO, BAMBI Unavailable [address] + [place] [address] RENATO KENDELL Unavailable [address] [place] [address] [address] + [place] [address] R Unavailable Unavailable Unavailable Care Team Providers Name Role Phone Zia, Vancouver Attending Unavailable Zia, Vancouver Referring Unavailable Malys, Michaela Primary Care Unavailable Malys, Michaela Attending Unavailable Malys, Michaela Referring Unavailable Malys, Michaela Primary Care Unavailable Zia, Vancouver Attending Unavailable Zia, Vancouver Referring Unavailable Malys, Michaela Primary Care Unavailable Leelee Fernandez Attending Unavailable Malys, Michaela Referring Unavailable Malys, Michaela Primary Care Unavailable Brook Gage Attending Unavailable Malys, Michaela Referring Unavailable Malys, Michaela Primary Care Unavailable Zia, Anupam Attending Unavailable Malys, Michaela Primary Care Unavailable Zia, Vancouver Attending Unavailable Zia, Anupam Referring Unavailable Malys, Michaela Primary Care Unavailable Zia, Vancouver Attending Unavailable Zia, Vancouver Referring Unavailable Malys, Michaela Primary Care Unavailable Zia, Anupam Attending Unavailable Zia, Vancouver Referring Unavailable Malys, Michaela Primary Care Unavailable Zia, Vancouver Attending Unavailable Zia, Anupam Referring Unavailable Malys, Michaela Primary Care Unavailable Zia, Vancouver Attending Unavailable Zia, Vancouver Referring Unavailable Malys, Michaela Primary Care Unavailable Malys, Michaela Attending Unavailable Malys, Michaela Referring Unavailable Malys, Michaela Primary Care Unavailable Malys, Michaela Primary Care Unavailable Justin Cuellar Attending Unavailable Zia, Anupam Attending Unavailable Malys, Michaela Referring Unavailable Malys, Michaela Primary Care Unavailable JimSheelae Attending Unavailable Malys, Michaela Referring Unavailable Malys, Michaela Primary Care Unavailable Zia, Vancouver Attending Unavailable Zia, Anupam Referring Unavailable Malys, Michaela Primary Care Unavailable Zia, Anupam Attending Unavailable Zia, Vancouver Referring Unavailable Malys, Michaela Primary Care Unavailable Zia, Anupam Attending Unavailable Zia, Anupam Referring Unavailable Malys, Michaela Primary Care Unavailable Zia, Anupam Attending Unavailable Zia, Vancouver Referring Unavailable Malys, Michaela Primary Care Unavailable PROBLEMS PROBLEMS DATE TYPE CONDITION / CODE ATTENDING STATUS SOURCE 05/30/2018 Unknown I48.0 - Paroxysmal Zia, [place] Active [facility] atrial fibrillation / Community I48.0(ICD-10) Hospital Repository 05/30/2018 Unknown Z79.899 - Other long Zia, Vancouver Active [facility] term (current) drug Community therapy / Hospital Z79.899(ICD-10) Repository 01/13/2018 Unknown I50.22 - Chronic Leelee Fernandez Active [place] systolic (congestive) Community heart failure / Hospital I50.22(ICD-10) Repository 01/13/2018 Unknown Z95.0 - Presence of Leelee Fernandez Active [place] cardiac pacemaker / Community Z95.0(ICD-10) Hospital Repository 01/13/2018 Unknown I49.5 - Sick sinus Leelee Fernandez Active [place] syndrome / Community I49.5(ICD-10) Hospital Repository 01/12/2018 Unknown I42.8 - Other Zia, [place] Active [facility] cardiomyopathies / Community I42.8(ICD-10) Hospital Repository 08/30/2017 Unknown Z51.81 - Encounter for Zia, Anupam Active [place] therapeutic drug level Community monitoring / Hospital Z51.81(ICD-10) Repository PROCEDURES PROCEDURES No Procedure Records FoundRESULTS RESULTS PROTHROMBIN TIME W/INR Collected: 06/20/2018 Status: F Source: [place] 9:41 AM [facility] REPOSITORY Order Comment: Comments: STANDING ORDER Comments: STANDING ORDER TYPE CODE TESTS RESULT OUT OF RANGE REFERENCE UNITS LAB L300.4150 11.7-14.9 SECONDS High PROTIME 28.4 LAB L300.4200 Normal INR 2.7 Performed By: #### L300.3900 #### [facility] [address] [place], [address] SCREENING MAMM (CAD), Observed: 06/20/2018 Status: F Source: [place] BILAT 8:58 AM [facility] REPOSITORY [facility] Imaging Services [address] [place] [address] SCREENING MAMM (CAD), BILAT MR#: [id number] Acct: [id number] Name: JC GROSS Rep #: [id number] : 1945 F 72 From: David Cody MD PCP: Michaela Mcfadden DO Status: REG CLI Study: SCREENING MAMM (CAD), BILAT Date of Exam: 06/20/18 Exam# [id number] Ordering Dr: Michaela Mcfadden DO MAMMOGRAPHY - [...] delay biopsy of a clinically suspicious abnormality. [id number] Electronically Signed: David Cody MD at 9:59 EST Tel [phone], Service support , CC: Michaela Mcfadden DO Director Surface Transportation: Signed PROTHROMBIN TIME W/INR Collected: 05/16/2018 Status: F Source: [place] 12:25 PM [facility] REPOSITORY Order Comment: Comments: STANDING ORDER Comments: STANDING ORDER TYPE CODE TESTS RESULT OUT OF RANGE REFERENCE UNITS LAB L300.4150 11.7-14.9 SECONDS High PROTIME 22.8 LAB L300.4200 Normal INR 2.0 Performed By: #### L300.3900 #### [facility] [address] [facility] [address] [place], [place], [address] PROTHROMBIN TIME W/INR Collected: 04/18/2018 Status: F Source: [place] 12:10 PM [facility] REPOSITORY TYPE CODE TESTS RESULT OUT OF RANGE REFERENCE UNITS LAB L300.4150 11.7-14.9 SECONDS High PROTIME 30.5 LAB L300.4200 Normal INR 2.9 Performed By: #### L300.3900 #### [facility] [address] [place], [place], [address] PROTHROMBIN TIME W/INR Collected: 03/21/2018 Status: F Source: [place] 8:37 AM [facility] REPOSITORY TYPE CODE TESTS RESULT OUT OF RANGE REFERENCE UNITS LAB L300.4150 11.7-14.9 SECONDS High PROTIME 31.2 LAB L300.4200 Normal INR 3.0 Performed By: #### L300.3900 #### [facility] [address] [place], [address] PROTIME W/INR Collected: 02/28/2018 Status: F Source: [place] FINGERSTICK 11:31 AM [facility] REPOSITORY TYPE CODE TESTS RESULT OUT OF REFERENCE UNITS RANGE LAB L9200.1001 11.9-14.4 SEC High PROTIME ISTAT 27.3 Result Comment: Reference Range 11.9 - 14.4 LAB L9200.2000 Normal INR ISTAT 2.40 Result Comment: Critical Value > 3.5 Performed By: #### L9200.0000 #### [facility] Point of Care [address] [place] [address] PROTHROMBIN TIME W/INR Collected: 02/09/2018 Status: F Source: [place] 8:57 AM [facility] REPOSITORY TYPE CODE TESTS RESULT OUT OF RANGE REFERENCE UNITS LAB L300.4150 11.7-14.9 SECONDS High PROTIME 31.9 LAB L300.4200 Normal INR 3.1 Performed By: #### L300.3900 #### [facility] [address] [place], [address] PACEMAKER CHECK Observed: 01/12/2018 Status: F Source: [place] 11:45 AM [facility] REPOSITORY [facility] [address] [place] [address] Pacemaker Check Date of Service: 01/12/18 110 MR#: [id number] Acct: [id number] Name: JC GROSS Rep #: [id number] : 1945 From: Leelee Fernandez Age/Sex: 72/F [place] [facility] [place]: Signed Billing Codes PM Device Codes: PM Dev Prog Eval, Dual 01/12/18 1104 <Electronically signed by Leelee Fernandez > Date Leelee Fernandez 01/12/18 1145<Electronically signed by Anupam Lizarraga MD> Cosigner Signature: Date (if applicable) Anupam Lizarraga MD CC: CARDIOLOGY VISIT Observed: 01/12/2018 Status: F Source: [place] REPORT 11:12 AM [facility] REPOSITORY [facility] [facility] [address] [place] [address] OFFICE VISIT Date of Service: 01/12/18 MR#: [id number] Acct: [id number] Name: JC GROSS Rep #: [id number] : 1945 Provider: Anupam Lizarraga MD Age/Sex: 72/F [place] [facility] [place]: Signed HPI HPI [...] pacemaker in situ Z95.0 Implant 2008 @ [place] Plan She does have a permanent pacemaker [...] EMERGENCY DEPARTMENT Observed: 01/04/2018 Status: F Source: [place] SUMMARY 7:55 AM [facility] Medical Records Department [address] [place] [address] Emergency Department Summary 01/03/18 1157 MR#: [id number] Acct: [id number] Name: JC GROSS Rep #: [id number] : 1945 72 From: Justin Cuellar MD [...] ankle sprain This note was generated with PageScienceation software. It may contain incorrect words, spelling, [...] problems, contact your Primary Care Provider. Call [facility] ([phone]) or report to the closest Emergency Room. Call 911 if necessary. 01/04/18 0755 <Electronically signed by Justin Cuellar MD> Date Justin Cuellar MD Cosigner Signature (If Indicated): Date CC: Michaela Mcfadden DO DISCHARGE INSTRUCTION Observed: 01/04/2018 Status: F Source: [place] 7:55 AM [facility] REPOSITORY [facility] Medical Records Department [address] [place] [address] Discharge Instruction 01/03/18 1159 MR#: [id number] Acct: [id number] Name: JC GROSS Iveth Rep #: [id number] : 1945 72 From: Justin Cuellar MD PCP: Michaela Mcfadden DO Status: [facility] ER ED Disposition - Plan for ED Patient: Chief Complaint: Lower Extremity Injury Instructions: ED Sprain Ankle W X Ray Referrals: Michaela Mcfadden DO [Primary Care Provider] - What to do if you have Problems For any increased pain, shortness of breath, bleeding, nausea or vomiting, chest pain, or any unexpected problems, contact your Primary Care Provider. Call [facility] ([phone]) or report to the closest Emergency Room. Call 911 if necessary. 01/04/18 0754 <Electronically signed by Justin Cuellar MD> Date Justin Cuellar MD Cosigner Signature (If Indicated): Date CC: Michaela Mcfadden DO ANKLE MIN 3 VIEWS Observed: 01/03/2018 Status: F Source: [place] 10:44 AM [facility] REPOSITORY [facility] Imaging Services [address] [place] [address] Ankle min 3 Views MR#: [id number] Acct: [id number] Name: JC GROSS Rep #: [id number] : 1945 F 72 From: Kilo Irvin MD PCP: Michaela Mcfadden DO Status: PRE ER Study: Ankle min 3 Views Date of Exam: 01/03/18 Exam# [id number] Ordering Dr: Justin Cuellar MD STUDY: X-RAY [...] CC: Justin Cuellar MD; Michaela Mcfadden DO Director Surface Transportation: Signed PROTHROMBIN TIME W/INR Collected: 12/31/2017 Status: F Source: [place] 11:37 AM [facility] REPOSITORY TYPE CODE TESTS RESULT OUT OF RANGE REFERENCE UNITS LAB L300.4150 11.7-14.9 SECONDS High PROTIME 27.8 LAB L300.4200 Normal INR 2.6 Performed By: #### L300.3900 #### [facility] [address] [facility] [place], [address] L/S SPINE COMP/W Observed: 12/15/2017 Status: F Source: [place] BENDING VIEWS 12:20 PM [facility] REPOSITORY [facility] Imaging Services [address] [place] [address] L/S Spine Comp/w Bending Views MR#: [id number] Acct: [id number] Name: JC GROSS Rep #: [id number] : 1945 F 72 From: Jose Dietz DO PCP: Michaela Mcfadden DO Status: REG CLI Study: L/S Spine Comp/w Bending Views Date of Exam: 12/15/17 Exam# [id number] Ordering Dr: Michaela Mcfadden DO STUDY: X-RAY [...] Service support , CC: Michaela Mcfadden DO Director Surface Transportation: Signed PROTHROMBIN TIME W/INR Collected: 11/24/2017 Status: F Source: [place] 8:38 AM [facility] REPOSITORY TYPE CODE TESTS RESULT OUT OF RANGE REFERENCE UNITS LAB L300.4150 11.7-14.9 SECONDS High PROTIME 31.1 LAB L300.4200 Normal INR 3.0 Performed By: #### L300.3900 #### [facility] [address] [facility] [address] [place], [place], [address] PROTHROMBIN TIME W/INR Collected: 10/20/2017 Status: F Source: [place] 9:15 AM [facility] REPOSITORY TYPE CODE TESTS RESULT OUT OF RANGE REFERENCE UNITS LAB L300.4150 11.7-14.9 SECONDS High PROTIME 31.6 LAB L300.4200 Normal INR 3.0 Performed By: #### L300.3900 #### [facility] [address] [facility] [address] [place], [place], [address] PROTHROMBIN TIME W/INR Collected: 09/16/2017 Status: F Source: [place] 10:17 AM [facility] REPOSITORY TYPE CODE TESTS RESULT OUT OF RANGE REFERENCE UNITS LAB L300.4150 11.7-14.9 SECONDS High PROTIME 29.5 LAB L300.4200 Normal INR 2.8 Performed By: #### L300.3900 #### [facility] [address] [place], [address] PROTHROMBIN TIME W/INR Collected: 08/25/2017 Status: F Source: [place] 8:59 AM [facility] REPOSITORY TYPE CODE TESTS RESULT OUT OF RANGE REFERENCE UNITS LAB L300.4150 11.7-14.9 SECONDS High PROTIME 20.7 LAB L300.4200 Normal INR 1.8 Performed By: #### L300.3900 #### [facility] [address] [place], [address] PROTHROMBIN TIME W/INR Collected: 07/28/2017 Status: F Source: [place] 11:48 AM [facility] REPOSITORY TYPE CODE TESTS RESULT OUT OF RANGE REFERENCE UNITS LAB L300.4150 11.7-14.9 SECONDS High PROTIME 28.9 LAB L300.4200 Normal INR 2.7 Performed By: #### L300.3900 #### [facility] [address] [place], [address] OFFICE VISIT REPORT Observed: 07/27/2017 Status: F Source: [place] 7:24 PM [facility] REPOSITORY [facility] [address] [place] [address] OFFICE VISIT Date of Service: 07/14/17 MR#: [id number] Acct: [id number] Patient: JC GROSS Rep #: [id number] : 1945 Provider: Leelee Fernandez Age/Sex: 71/F [place] [facility] [place] Status: Signed Comments Summary Comments: Dual Chamber Pacemaker Evaluation: Interrogation shows 398 MS episodes, 0% total time or 12.3 hrs and 1 NSVT episode since 01/06/17. Patient on Coumadin. Left pectoral pocket/incision w/o s/s of infection or erosion. Pt offers no cardiac complaints. Presenting rhythm shows AAI pacing @ 60 ppm. AGRICULTURAL CHEMIST=2%. battery longevity approx 5 yrs. Lead impedances, sensing and pace/sense thresholds remain stable. No parameter changes made. Counters cleared. Next f/u appt scheduled for in 6 mos. Device Device Date Interviewed: 07/14/17 Follow-up Location: in office Interview Reason: routine follow up Agricultural Produce Washer: Dianwoba Name: Emilio 60 Model: S606 Serial #: [id number] Implant Date: 05/14/09 Year(s): 8 Implant Physician: Dr. Gonzalo Barker/Jade Patient Characteristics Atrial Indication: sick sinus syndrome Patient Substrate: Nonischemic cardiomyopathy Ejection fraction %: 50 to 54 By: Echo Underlying rhythm: Sinus bradycardia Pacemaker Dependent: No Device Characteristics Device: Dual Chamber Type: Pacemaker Remote Follow-Up: No Device Physical Exam Yes Incision well healed Leads Lead #1 Agricultural Produce Washer Lead 1: [employer] Model Lead 1: 1699TC Serial# Lead 1: [id number] Date Implanted Lead 1: 05/14/09 Position Lead 1: RA Lead #2 Agricultural Produce Washer Lead 2: Guidant Model Lead 2: 4136 Serial# Lead 2: [id number] Date Implanted Lead 2: 05/14/09 Position Lead [...] CARDIOLOGY VISIT Observed: 07/15/2017 Status: F Source: [place] REPORT 4:54 PM [facility] REPOSITORY [facility] [address] [place] [address] OFFICE VISIT Date of Service: 07/14/17 MR#: [id number] Acct: [id number] Name: JC GROSS Rep #: [id number] : 1945 Provider: Brook Gage Age/Sex: 71/F [place] [facility] [place] Status: Signed HPI HPI Details: [...] Reasons: 6 M FU / PACER 10:00 Dead Mail Checker Required: No Accompanied by: None Is patient [...] pacemaker in situ Z95.0 Implant 2008 @ [place] Plan - EZRA Pineda Device is functioning [...] prior to saving. Follow Up 6 Months (SHIP SCRAPER) Coding Level of Care Code Off vis,est,level [...] 07/14/2017 Status: F Source: [place] 11:51 AM [facility] REPOSITORY TYPE CODE TESTS RESULT OUT OF [...] Lymph 1.88 Performed By: #### L100.0100 #### [facility] [address] [place], [address] PROTHROMBIN TIME W/INR Collected: 07/14/2017 Status: F Source: [place] 8:58 AM [facility] REPOSITORY TYPE CODE TESTS RESULT OUT OF RANGE REFERENCE UNITS LAB L300.4150 11.7-14.9 SECONDS High PROTIME 21.2 LAB L300.4200 Normal INR 1.9 Performed By: #### L300.3900 #### [facility] [address] [place], [address] ALLERGIES ALLERGIES DATE TYPE / CODE NAME / CODE REACTION SEVERITY SOURCE 01/12/2018 Drug No Known Unknown [facility] Allergy/4160 Allergies/F00 [place] [address](SNOMED 3693158(RXNOR Repository CT) M) 07/14/2017 Drug metoprolol/F0 see comment Unknown [facility] Allergy/4160 [id number]([place] [address](SNOMED RM) Repository CT) ENCOUNTERS ENCOUNTERS ADMIT/DISCHARGE ACCOUNT ADMITTING ENCOUNTER LOCATION SOURCE NUMBER CLASS 06/20/2018 [id number] [place] [facility] ing:LAB Repository 06/20/2018 [id number] Ambulatory [facility] ing:OPBI Repository 05/16/2018/ [id number] Ambulatory [place] [facility] 8 2 [facility] ing:LAB Repository 04/18/2018/ [id number] Ambulatory [place] [facility] 8 8 [facility] ing:LAB Repository 03/21/2018/ [id number] Ambulatory [place] [facility] 8 0 [facility] ing:LAB Repository 02/09/2018/ [id number] Ambulatory [facility] 8 7 [facility] ing:LAB Repository 01/12/2018/ [id number] Ambulatory [facility]:B [place] 8 3 [facility] Repository 01/12/2018/ [id number] Ambulatory [facility]MSBuilding:B [place] [facility] 8 [facility] Repository 01/03/2018/ [id number] Emergency [place] 8 6 [facility] ing:ED Repository 12/31/2017/ [id number] Amb[place] [facility] 9 [facility] ing:LAB Repository 12/15/2017 [id number] Ambulatory [place] [facility] 0 [facility] ing:HPRAD Repository 11/24/2017/ [id number] Ambulatory [place] [facility] 8 5 [facility] ing:LAB Repository 10/20/2017/ [id number] Ambulatory [place] [facility] 5 [facility] ing:LAB Repository 09/16/2017/ [id number] Ambulatory [place] [facility] 8 1 [facility] ing:LAB Repository 08/25/2017/ [id number] Ambulatory [place] 8 6 [facility] ing:LAB Repository 07/28/2017/ [id number] Ambulatory [place] 8 0 [facility] ing:LAB Repository 07/14/2017/ [id number] Ambulatory BMSBuilding:B [place] 8 5 [facility] Repository 07/14/2017/ [id number] Ambulatory BMSBuilding:B [place] 8 8 [facility] Repository 07/14/2017/ [id number] Ambulatory [facility] 8 5 [facility] ing:LAB Repository PAYERS PAYERS ENCOUNTER GUARANTOR PAYER SUBSCRIBER SOURCE 06/20/2018 MARIA INES Primary JC MARIAHBERGER15520 Insurance:HUMANA HERSHBERGERDOB: Community [facility] MEDICARE [id number] Number: Repository [place] [address]Ubt: [id number] Date:1792-88-79GP [address] () [address] [place] [phone]: 06/20/2018 Secondary NOT GIVENUNK [place] Insurance:SELF PAY [facility] Number: Effective Repository Date:2018-05-30 06/20/2018 BAMBI Robledo Primary JC [id number] Insurance:HUMANA HERSHBERGERDOB: [facility] [id number], Number: Repository [place] [address]Sam: [id number] Date:[id number] [address] () [address] [place] [phone]: 06/20/2018 Secondary NOT GIVENUNK [place] Insurance:SELF PAY [facility] Number: Effective Repository Date:2018-03-15 05/16/2018 BAMBI Robledo Primary JC Spears [id number] Insurance:HUMANA HERSHBERGERDOB: Community [place] MEDICARE PPOPolicy [id number], Number: Repository [place] [address]Nkw: [id number] Date:0765-56-77PD [address] () [address] [place] [phone]: 05/16/2018 Secondary NOT GIVENUNK [place] Insurance:SELF PAY [facility] Number: Effective Repository Date:2018-05-02 04/18/2018 BAMBI Robledo Primary JC [id number] Insurance:HUMANA HERSHBERGERDOB: Community [facility] MEDICARE [facility] [id number], Number: Repository [place] [id number]: [id number] Date:3225-56-41TS BOX () [address] [place] [id number]: 04/18/2018 Secondary NOT GIVENUNK [place] Insurance:SELF PAY [facility] Effective Repository Date:2018-03-31 03/21/2018 BAMBI Robledo Primary JC Spears [id number] Insurance:HUMANA HERSHBERGERDOB: Community [place] MEDICARE PPOPolicy [id number], Number: Repository [place] [id number]: [id number] Date:4752-62-79CP BOX () [address] [place] [id number]: 03/21/2018 Secondary NOT GIVENUNK [place] Insurance:SELF PAY [facility] Number: Effective Repository Date:2018-02-28 02/09/2018 Bambi Robledo Primary JC Peñaoster [id number] Insurance:HUMANA HERSHBERGERDOB: Community [place] MEDICARE PPOPolicy [id number] F. [facility], Number: Repository [place] [id number]: [id number] Date:1706-04-52AI BOX () [address] [place] [phone]: 02/09/2018 Secondary NOT GIVENUNK [place] Insurance:SELF PAY [facility] Number: Effective Repository Date:2018-02-01 01/12/2018 Bambi Robledo Primary JC Peñaoster [id number] Insurance:HUMANA HERSHBERGERDOB: Community [place] MEDICARE PPOPolicy [id number] F. Kennedy Memorial Hospital, Number: Repository [place] [id number]: [id number] Date:6601-75-75XV BOX () [address] [place] [id number]: 01/12/2018 Secondary NOT GIVENUNK [place] Insurance:SELF PAY [facility] Number: Effective Repository Date:2018-01-12 01/12/2018 Bambi Robledo Primary JC Spears [id number] Insurance:HUMANA HERSHBERGERDOB: Community [place] MEDICARE [facility] [id number] F. Kennedy Memorial [facility], Number: Repository [place] [id number]: [id number] Date:4788-34-39LZ BOX () [address] [place] [id number]: 01/12/2018 Secondary NOT GIVENUNK [place] Insurance:SELF PAY [facility] Number: Effective Repository Date:2018-01-12 01/03/2018 Bambi Robledo Primary JC Spears [id number] Insurance:HUMANA HERSHBERGERDOB: Community [place] MEDICARE [facility] [id number] F. Kennedy Memorial Hospital, Number: Repository [place] [id number]: [id number] Date:0787-53-24RX BOX () [address] [place] [id number]: 01/03/2018 Secondary NOT GIVENUNK [place] Insurance:SELF PAY [facility] Number: Effective Repository Date:2018-01-03 12/31/2017 Bambi Robledo Primary JC Spears [id number] Insurance:HUMANA HERSHBERGERDOB: Community [place] MEDICARE [facility] [id number] F. Kennedy Memorial Hospital, Number: Repository [place] [id number]: [id number] Date:6045-31-41KP BOX () [address] [place] [phone]: 12/31/2017 Secondary NOT GIVENUNK [place] Insurance:SELF PAY [facility] Number: Effective Repository Date:2017-11-26 12/15/2017 Bambi Robledo Primary JC Spears [id number] Insurance:HUMANA HERSHBERGERDOB: Community [place] MEDICARE [facility] [id number] F. Kennedy Memorial Hospital, Number: Repository [place] [id number]: [id number] Date:8156-64-78SL BOX () [address] [place] [id number]: 12/15/2017 Secondary NOT GIVENUNK [place] Insurance:SELF PAY [facility]: Effective Repository Date:2017-12-15 11/24/2017 Bambi Robledo Primary JC Spears [id number] Insurance:HUMANA HERSHBERGERDOB: Community [place] MEDICARE PPOPolicy [id number] F. Kennedy Memorial Hospital, Number: [place]ository [place] [id number]: [id number] Date:9692-89-10SN BOX () [address] [place] [phone]: 11/24/2017 Secondary NOT GIVENUNK [place] Insurance:SELF PAY [facility] Number: Effective Repository Date:2017-10-28 10/20/2017 Bambi Robledo Primary JC Spears [id number] Insurance:HUMANA HERSHBERGERDOB: Community [place] MEDICARE PPOPolicy [id number] F. Kennedy Memorial Hospital, Number: Repository [place] [id number]: [id number] Date:1588-14-73SV BOX () [address] [place] [phone]: 10/20/2017 Secondary NOT GIVENUNK [place] Insurance:SELF PAY [facility] Number: Effective Repository Date:2017-09-28 09/16/2017 Bambi Robledo Primary JC Spears [id number] Insurance:HUMANA HERSHBERGERDOB: Community [place] MEDICARE OPolicy [id number] F. Kennedy Memorial Hospital, Number: Repository [place] [id number]: [id number] Date:7921-63-92ZG BOX () [address] [place] [phone]: 09/16/2017 Secondary NOT GIVENUNK [place] Insurance:SELF PAY [facility] Number: Effective Repository Date:2017-08-30 08/25/2017 Bambi Robledo Primary JC Spears [id number] Insurance:HUMANA HERSHBERGERDOB: Community [place] MEDICARE OPolicy [id number] F. Kennedy Memorial Hospital, Number: [place]ository [place] [address]Jll: [id number] Date:8620-83-66GR BOX () [address] [place] [phone]: 08/25/2017 Secondary NOT GIVENUNK [place] Insurance:SELF PAY [facility] Number: Effective Repository Date:2017-08-25 07/28/2017 Bambi Robledo Primary JC Spears [id number] Insurance:HUMANA HERSHBERGERDOB: Community [place] MEDICARE [facility] [id number] F. Kennedy Memorial Hospital, Number: Repository [place] [id number]: [id number] Date:8869-16-65OE BOX () [address] [place] [phone]: 07/28/2017 Secondary NOT GIVENUNK [place] Insurance:SELF PAY [facility] Number: Effective Repository Date:2017-07-28 07/14/2017 Bambi Robledo Primary JC Spears [id number] Insurance:HUMANA HERSHBERGERDOB: Community [place] MEDICARE [facility] [id number] F. Kennedy Memorial Hospital, Number: [place]ository [place] [id number]: [id number] Date:5061-85-23SG BOX () [address] [place] [phone]: 07/14/2017 Secondary NOT GIVENUNK [place] Insurance:SELF PAY [facility] Number: Effective Repository Date:2017-07-08 07/14/2017 Bambi Robledo Primary JC Peñaoster [id number] Insurance:HUMANA HERSHBERGERDOB: Community [place] MEDICARE [facility] [id number] F. Kennedy Memorial Hospital, Number: [place]ository [place] [id number]: [id number] Date:9374-03-84ON BOX () [address], [place] [address]JA: 07/14/2017 Secondary NOT GIVENUNK [place] Insurance:SELF PAY [facility] Number: Effective Repository Date:2017-05-05 07/14/2017 Bambi Constantino JC A [place] [id number] Insurance:HUMANA HERSHBERGERDOB: Community [place] MEDICARE [facility]OPol[facility] [id number] F. Kennedy Memorial Hospital, Number: [place]ository [place] [id number]: [id number] Date:4114-06-68LQ BOX () [address], [place] [address]XS: 07/14/2017 Secondary NOT GIVENUNK [place] Insurance:SELF PAY [facility] Number: Effective Repository Date:2017-07-02
== END 2018-06-20 10:37 | disposition home or self-care (01) ==
LOC: LAB 09:37
PROVIDERS: Family Provider Family Medicine; PCP Family Medicine; Referring Provider Internal Medicine Cardiovascular Disease; Visit Provider Internal Medicine Cardiovascular Disease
DX: I48.0 Paroxysmal atrial fibrillation (principal); Z79.01 Long term (current) use of anticoagulants
CPT/HCPCS: 36415; 85610

== ENCOUNTER 2018-07-15 08:30 | Outpatient (RCR) | payer MEDICARE, SELFPAY ==
[2018-01-12 10:36] VITALS: BMI 23.8
[2018-07-15 09:29] LABS: International Normalized Ratio 2.2; Prothrombin Time (Protime)PT. 24.1 SECONDS (11.7-14.9)
--- NOTE | 2018-07-15 10:28 | RAD_ITS ---
STUDY: X-RAY CHEST REASON FOR EXAM: Female, 72 years old. Acute shortness of breath TECHNIQUE: PA and lateral views of the chest. COMPARISON: 01/08/2017 FINDINGS: Stable appearance of a left subclavian pacemaker, stable elevation of the right hemidiaphragm The lungs are clear and expanded. There is no demonstrated pleural abnormality. Normal size heart. Normal mediastinum and patricia. Normal visualized pulmonary arteries. Normal visualized aortic arch and descending thoracic aorta. Normal visualized thoracic spine. Normal visualized ribs, clavicles, and shoulders. There is no demonstrated abnormality of the visualized soft tissue structures of the upper abdomen. RAD/Chest PA and Lateral IMPRESSION: No acute pulmonary process Electronically Signed: Michael Ohara MD at 15:11 EST , Service support ,
[2018-07-15 12:15] LABS: Absolute Lymphocyte Count 2.11 X10^3/ul (0.83-4.51); Absolute Neutrophil Count 2.2 X10^3/uL (2.0-7.7); Basophil# 0.02 X10^3/uL; Basophil% 0.4 % (0-1); Eosinophil# 0.18 X10^3/uL; Eosinophils% 3.6 % (0-5); Hematocrit 36.8 % (37-47); Hemoglobin 11.4 g/dl (12.0-15.0); Lymphocyte # 2.11 X10^3/ul (4.0); Lymphocyte % 42.3 % (19-41); Mean Corpuscular Hgb 30.5 pg (27.0-32.0); Mean Corpuscular Volume 98.4 fL (81-99); Mean Platelet Vol. 10.5 fl (6.2-12.0); Monocyte# 0.43 X10^3/uL; Monocyte% 8.6 % (0-10); Neutrophil # 2.24 X10^3/uL (2.7-7.7); Neutrophil % 44.9 % (47-70); Platelet Count 242 K/mm3 (150-450); RBC Distribution Width CV 17.7 % (11.6-14.6); RBC Distribution Width SD 62.9 fl (35.1-43.9); Red Blood Count 3.74 M/mm3 (4.2-5.4)
[2018-07-15 12:19] LABS: POSITIVE COUNT NO; POSITIVE DIFFERENTIAL NO; POSITIVE MORPHOLOGY NO
[2018-07-15 12:36] LABS: Anion Gap 8 (5-15); BUN 22 mg/dL (7-18); BUN/Creat Ratio 24.5 RATIO (10-20); Calcium,Total 9.2 mg/dL (8.5-10.1); Chloride 106 mmol/L (98-107); EST Glomerular Filtration Rate 66 mL/min (>60); Est Glom Filt Rate - Afr Amer 79 mL/min (>60); Glucose 91 mg/dL (74-106); Sodium Level 139 mmol/L (136-145)
[2018-07-15 12:42] LABS: BNP,B-Type NATRIURETIC PEPTIDE 140.2 pg/mL (0-100)
== END 2018-07-28 13:33 | disposition home or self-care (01) ==
LOC: LAB 08:30
PROVIDERS: Physician Assistant Medical; Family Provider Family Medicine; PCP Family Medicine; Referring Provider Internal Medicine Cardiovascular Disease; Visit Provider Internal Medicine Cardiovascular Disease
DX: I48.0 Paroxysmal atrial fibrillation (principal); Z79.01 Long term (current) use of anticoagulants; I50.22 Chronic systolic (congestive) heart failure; I42.8 Other cardiomyopathies; R06.09 Other forms of dyspnea
CPT/HCPCS: 36415; 71046; 80048; 83880; 85025; 85610

== ENCOUNTER 2018-08-23 13:16 | Outpatient (RCR) | payer MEDICARE, SELFPAY ==
[2018-07-15 09:39] VITALS: BMI 23.4
[2018-08-23 13:48] LABS: International Normalized Ratio 2.7; Prothrombin Time (Protime)PT. 28.6 SECONDS (11.7-14.9)
== END 2018-08-23 14:00 | disposition home or self-care (01) ==
LOC: LAB 13:16
PROVIDERS: Family Provider Family Medicine; PCP Family Medicine; Referring Provider Internal Medicine Cardiovascular Disease; Visit Provider Internal Medicine Cardiovascular Disease
DX: I48.0 Paroxysmal atrial fibrillation (principal); Z79.01 Long term (current) use of anticoagulants
CPT/HCPCS: 36415; 85610

== ENCOUNTER 2018-09-19 10:26 | Outpatient (RCR) | payer MEDICARE, SELFPAY ==
[2018-07-15 09:39] VITALS: BMI 23.4
[2018-09-19 10:55] LABS: International Normalized Ratio 2.6; Prothrombin Time (Protime)PT. 27.9 SECONDS (11.7-14.9)
== END 2018-09-27 16:00 | disposition home or self-care (01) ==
LOC: LAB 10:26
PROVIDERS: Family Provider Family Medicine; PCP Family Medicine; Referring Provider Internal Medicine Cardiovascular Disease; Visit Provider Internal Medicine Cardiovascular Disease
DX: I48.0 Paroxysmal atrial fibrillation (principal); Z79.01 Long term (current) use of anticoagulants
CPT/HCPCS: 36415; 85610

== ENCOUNTER 2018-10-18 08:59 | Outpatient (RCR) | payer MEDICARE, SELFPAY ==
[2018-07-15 09:39] VITALS: BMI 23.4
[2018-10-18 12:06] LABS: International Normalized Ratio 2.7; Prothrombin Time (Protime)PT. 28.7 SECONDS (11.7-14.9)
== END 2018-10-18 10:00 | disposition home or self-care (01) ==
LOC: LAB 08:59
PROVIDERS: Family Provider Family Medicine; PCP Family Medicine; Referring Provider Internal Medicine Cardiovascular Disease; Visit Provider Internal Medicine Cardiovascular Disease
DX: I48.0 Paroxysmal atrial fibrillation (principal); Z79.01 Long term (current) use of anticoagulants
CPT/HCPCS: 36415; 85610

== ENCOUNTER 2018-11-16 12:46 | Outpatient (RCR) | payer MEDICARE, SELFPAY ==
[2018-07-15 09:39] VITALS: BMI 23.4
[2018-11-16 14:36] LABS: International Normalized Ratio 2.2; Prothrombin Time (Protime)PT. 24.8 SECONDS (11.7-14.9)
== END 2018-11-16 13:00 | disposition home or self-care (01) ==
LOC: LAB 12:46
PROVIDERS: Family Provider Family Medicine; PCP Family Medicine; Referring Provider Internal Medicine Cardiovascular Disease; Visit Provider Internal Medicine Cardiovascular Disease
DX: I48.0 Paroxysmal atrial fibrillation (principal); Z79.01 Long term (current) use of anticoagulants
CPT/HCPCS: 36415; 85610

== ENCOUNTER 2018-12-28 08:59 | Outpatient (RCR) | payer MEDICARE, SELFPAY ==
[2018-07-15 09:39] VITALS: BMI 23.4
[2018-12-07 10:27] LABS: International Normalized Ratio 3.1; Prothrombin Time (Protime)PT. 31.7 SECONDS (11.7-14.9)
[2018-12-28 09:55] LABS: International Normalized Ratio 2.7; Prothrombin Time (Protime)PT. 28.8 SECONDS (11.7-14.9)
== END 2018-12-28 16:00 | disposition home or self-care (01) ==
LOC: LAB 08:59
PROVIDERS: Family Provider Family Medicine; PCP Family Medicine; Referring Provider Internal Medicine Cardiovascular Disease; Visit Provider Internal Medicine Cardiovascular Disease
DX: I48.0 Paroxysmal atrial fibrillation (principal); Z79.01 Long term (current) use of anticoagulants
CPT/HCPCS: 36415; 85610

== ENCOUNTER 2019-01-24 09:03 | Outpatient (RCR) | payer MEDICARE, SELFPAY ==
[2018-07-15 09:39] VITALS: BMI 23.4
[2019-01-24 09:40] LABS: International Normalized Ratio 2.5; Prothrombin Time (Protime)PT. 26.9 SECONDS (11.7-14.9)
[2019-01-24 10:02] LABS: Thyroid Stim Hormone (TSH) 0.92 uIU/mL (0.358-3.74)
== END 2019-01-24 12:00 | disposition home or self-care (01) ==
LOC: LAB 09:03
PROVIDERS: Physician Assistant Medical; Family Provider Family Medicine; PCP Family Medicine; Referring Provider Internal Medicine Cardiovascular Disease; Visit Provider Internal Medicine Cardiovascular Disease
DX: I48.0 Paroxysmal atrial fibrillation (principal); Z79.01 Long term (current) use of anticoagulants
CPT/HCPCS: 36415; 84443; 85610

== ENCOUNTER 2019-02-23 09:34 | Outpatient (RCR) | payer MEDICARE, SELFPAY ==
[2018-07-15 09:39] VITALS: BMI 23.4
[2019-02-23 11:16] LABS: International Normalized Ratio 2.8; Prothrombin Time (Protime)PT. 29.2 SECONDS (11.7-14.9)
== END 2019-02-23 11:00 | disposition home or self-care (01) ==
LOC: LAB 09:34
PROVIDERS: Family Provider Family Medicine; PCP Family Medicine; Referring Provider Internal Medicine Cardiovascular Disease; Visit Provider Internal Medicine Cardiovascular Disease
DX: I48.0 Paroxysmal atrial fibrillation (principal); Z79.01 Long term (current) use of anticoagulants
CPT/HCPCS: 36415; 85610

== ENCOUNTER 2019-03-29 10:53 | Outpatient (RCR) | payer MEDICARE, SELFPAY ==
[2019-02-10 09:09] VITALS: BMI 23.3
[2019-03-29 11:45] LABS: International Normalized Ratio 2.7; Prothrombin Time (Protime)PT. 28.7 SECONDS (11.7-14.9)
== END 2019-03-29 18:00 | disposition home or self-care (01) ==
LOC: LAB 10:53
PROVIDERS: Family Provider Family Medicine; PCP Family Medicine; Referring Provider Internal Medicine Cardiovascular Disease; Visit Provider Internal Medicine Cardiovascular Disease
DX: I48.0 Paroxysmal atrial fibrillation (principal); Z79.01 Long term (current) use of anticoagulants
CPT/HCPCS: 36415; 85610

== ENCOUNTER 2019-05-04 09:28 | Outpatient (RCR) | payer MEDICARE, SELFPAY ==
[2019-02-10 09:09] VITALS: BMI 23.3
[2019-05-04 10:34] LABS: International Normalized Ratio 3.1; Prothrombin Time (Protime)PT. 32.1 SECONDS (11.7-14.9)
== END 2019-05-04 18:00 | disposition home or self-care (01) ==
LOC: LAB 09:28
PROVIDERS: Family Provider Family Medicine; PCP Family Medicine; Referring Provider Internal Medicine Cardiovascular Disease; Visit Provider Internal Medicine Cardiovascular Disease
DX: I48.0 Paroxysmal atrial fibrillation (principal); Z79.01 Long term (current) use of anticoagulants
CPT/HCPCS: 36415; 85610

== ENCOUNTER 2019-06-09 08:07 | Outpatient (RCR) | payer MEDICARE, SELFPAY ==
[2019-02-10 09:09] VITALS: BMI 23.3
[2019-06-09 09:19] LABS: International Normalized Ratio 2.9; Prothrombin Time (Protime)PT. 30.8 SECONDS (11.7-14.9)
== END 2019-06-30 18:00 | disposition home or self-care (01) ==
LOC: LAB 08:07
PROVIDERS: Family Provider Family Medicine; PCP Family Medicine; Referring Provider Internal Medicine Cardiovascular Disease; Visit Provider Internal Medicine Cardiovascular Disease
DX: I48.0 Paroxysmal atrial fibrillation (principal); Z79.01 Long term (current) use of anticoagulants
CPT/HCPCS: 36415; 85610

== ENCOUNTER → 2019-06-23 08:18 | Outpatient (CLI) | payer MEDICARE, SELFPAY ==
--- NOTE | 2019-06-23 08:21 | BI_ITS ---
MAMMOGRAPHY - BILATERAL SCREENING REASON FOR EXAM: Female, 73 years old. Routine annual screening examination. PERTINENT HISTORY: Sister with breast cancer. TECHNIQUE: Digital bilateral breast mi (3D mammographic acquisition) in the CC and MLO projections. 2-D mediolateral oblique (MLO) and craniocaudad (CC) views of both breasts were obtained. CAD: Full Field Digital Mammography with Computer Added Detection was performed. COMPARISON: Comparison is made with prior study dated December 18, 2018 and March 26, 2017. FINDINGS: Breast Composition: There are scattered areas of fibroglandular density. There are no dominant masses or suspicious calcifications. Once again, a battery pack from a pacemaker is seen in the left axillary region. No other significant abnormalities are identified. There has been no significant change since the prior study. BI/SCREEN MAMM (CAD) W/MI BILAT IMPRESSION: Stable bilateral screening mammogram. Yearly follow-up mammogram recommended. (A) ASSESSMENT CATEGORY: BIRADS Category 2: Benign. A letter regarding these results will be sent to the patient by the facility within 30 days. Approximately 10% of breast cancers are not detected by mammography. A normal mammogram should not delay biopsy of a clinically suspicious abnormality. [id number] Electronically Signed: David Cody, at 9:24 EST , Service support ,
== END ==
PROVIDERS: Family Provider Family Medicine; PCP Family Medicine; Referring Provider Family Medicine; Visit Provider Family Medicine
DX: Z12.31 Encounter for screening mammogram for malignant neoplasm of breast (principal)
CPT/HCPCS: 77063; 77067

== ENCOUNTER 2019-07-24 10:33 | Outpatient (RCR) | payer MEDICARE, SELFPAY ==
[2019-02-10 09:09] VITALS: BMI 23.3
--- NOTE | 2019-07-17 15:07 | RAD_ITS ---
ACR Level 3 findings have been noted. An addendum which confirms receipt of the report will follow. STUDY: X-RAY - LUMBAR SPINE REASON FOR EXAM: Female, 74 years old. Low back pain. TECHNIQUE: 5 view(s) of the lumbar spine were obtained. COMPARISON: December 15, 2017 FINDINGS: Normal lumbar lordosis. There is new severe compression at T12. There is new mild depression at the superior endplate of L2. Again noted are the compression fracture at L3 and L4 There is multilevel endplate spondylosis of the lumbar vertebrae. There is multi-level degenerative disc disease with multi-level disc space narrowing. The soft tissue structures are unremarkable. RAD/L/S Spine Min 4 Views IMPRESSION: New severe compression fracture at T12 New mild superior endplate fracture at L2 Stable chronic fractures at L3 and L4. Further evaluation with CT and/or MRI can be obtained. Electronically Signed: Tito Silveira MD at 8:21 EST Tel , Service support ,
[2019-07-17 16:08] LABS: Prothrombin Time (Protime)PT. 37.6 SECONDS (11.7-14.9)
[2019-07-17 16:31] LABS: International Normalized Ratio 3.8
[2019-07-24 13:57] LABS: International Normalized Ratio 3.4; Prothrombin Time (Protime)PT. 34.9 SECONDS (11.7-14.9)
== END 2019-07-24 18:00 | disposition home or self-care (01) ==
LOC: LAB 10:33
PROVIDERS: Family Provider Family Medicine; PCP Family Medicine; Referring Provider Internal Medicine Cardiovascular Disease; Visit Provider Internal Medicine Cardiovascular Disease
DX: I48.0 Paroxysmal atrial fibrillation (principal); Z79.01 Long term (current) use of anticoagulants
CPT/HCPCS: 36415; 72110; 85610

== ENCOUNTER 2019-08-29 08:39 | Outpatient (RCR) | payer MEDICARE, SELFPAY ==
[2019-07-24 11:15] VITALS: BMI 24.7
[2019-08-21 09:25] LABS: International Normalized Ratio 1.6; Prothrombin Time (Protime)PT. 18.7 SECONDS (11.7-14.9)
[2019-08-29 09:40] LABS: International Normalized Ratio 2.3; Prothrombin Time (Protime)PT. 25.1 SECONDS (11.7-14.9)
== END 2019-08-29 18:00 | disposition home or self-care (01) ==
LOC: LAB 08:39
PROVIDERS: Family Provider Family Medicine; PCP Family Medicine; Referring Provider Internal Medicine Cardiovascular Disease; Visit Provider Internal Medicine Cardiovascular Disease
DX: I48.0 Paroxysmal atrial fibrillation (principal); Z79.01 Long term (current) use of anticoagulants
CPT/HCPCS: 36415; 85610

== ENCOUNTER 2019-09-19 08:28 | Outpatient (RCR) | payer MEDICARE, SELFPAY ==
[2019-07-24 11:15] VITALS: BMI 24.7
[2019-09-19 09:43] LABS: International Normalized Ratio 2.6; Prothrombin Time (Protime)PT. 27.4 SECONDS (11.7-14.9)
== END 2019-09-28 18:00 | disposition home or self-care (01) ==
LOC: LAB 08:28
PROVIDERS: Family Provider Family Medicine; PCP Family Medicine; Referring Provider Internal Medicine Cardiovascular Disease; Visit Provider Internal Medicine Cardiovascular Disease
DX: I48.0 Paroxysmal atrial fibrillation (principal); Z79.01 Long term (current) use of anticoagulants
CPT/HCPCS: 36415; 85610

== ENCOUNTER 2019-10-19 09:11 | Outpatient (RCR) | payer MEDICARE, SELFPAY ==
[2019-07-24 11:15] VITALS: BMI 24.7
[2019-10-19 10:01] LABS: International Normalized Ratio 1.3; Prothrombin Time (Protime)PT. 15.3 SECONDS (11.7-14.9)
== END 2019-10-19 18:00 | disposition home or self-care (01) ==
LOC: LAB 09:11
PROVIDERS: Family Provider Family Medicine; PCP Family Medicine; Referring Provider Internal Medicine Cardiovascular Disease; Visit Provider Internal Medicine Cardiovascular Disease
DX: I48.0 Paroxysmal atrial fibrillation (principal); Z79.01 Long term (current) use of anticoagulants
CPT/HCPCS: 36415; 85610

== ENCOUNTER 2019-11-21 08:06 | Outpatient (RCR) | payer MEDICARE, SELFPAY ==
[2019-07-24 11:15] VITALS: BMI 24.7
[2019-10-31 09:22] LABS: International Normalized Ratio 2.5; Prothrombin Time (Protime)PT. 26.3 SECONDS (11.7-14.9)
[2019-11-21 09:00] LABS: Prothrombin Time (Protime)PT. 30.4 SECONDS (11.7-14.9)
== END 2019-11-21 18:00 | disposition home or self-care (01) ==
LOC: LAB 08:06
PROVIDERS: Family Provider Family Medicine; PCP Family Medicine; Referring Provider Internal Medicine Cardiovascular Disease; Visit Provider Internal Medicine Cardiovascular Disease
DX: I48.0 Paroxysmal atrial fibrillation (principal); Z79.01 Long term (current) use of anticoagulants
CPT/HCPCS: 36415; 85610

== ENCOUNTER 2019-12-25 10:19 | Outpatient (RCR) | payer MEDICARE, SELFPAY ==
[2019-07-24 11:15] VITALS: BMI 24.7
[2019-12-25 11:42] LABS: International Normalized Ratio 2.4; Prothrombin Time (Protime)PT. 25.8 SECONDS (11.7-14.9)
== END 2019-12-25 18:00 | disposition home or self-care (01) ==
LOC: LAB 10:19
PROVIDERS: Family Provider Family Medicine; PCP Family Medicine; Referring Provider Internal Medicine Cardiovascular Disease; Visit Provider Internal Medicine Cardiovascular Disease
DX: I48.0 Paroxysmal atrial fibrillation (principal); Z79.01 Long term (current) use of anticoagulants
CPT/HCPCS: 36415; 85610

== ENCOUNTER 2020-01-23 10:18 | Outpatient (RCR) | payer MEDICARE, SELFPAY ==
[2019-07-24 11:15] VITALS: BMI 24.7
[2020-01-23 09:49] VITALS: BMI 23.6
[2020-01-23 11:08] LABS: International Normalized Ratio 2.7; Prothrombin Time (Protime)PT. 28.6 SECONDS (11.7-14.9)
== END 2020-01-29 18:00 | disposition home or self-care (01) ==
LOC: LAB 10:18
PROVIDERS: Family Provider Family Medicine; PCP Family Medicine; Referring Provider Internal Medicine Cardiovascular Disease; Visit Provider Internal Medicine Cardiovascular Disease
DX: I48.0 Paroxysmal atrial fibrillation (principal); Z79.01 Long term (current) use of anticoagulants
CPT/HCPCS: 36415; 85610

== ENCOUNTER → 2020-02-12 08:15 | Outpatient (CLI) | payer MEDICARE, SELFPAY ==
[2020-01-23 09:49] VITALS: BMI 23.6
--- NOTE | 2020-02-12 08:16 | ECHOCS_ITS ---
Reason For Study: Dyspnea/SOB Procedure This was a 2D Doppler, Color Flow transthoracic echocardiogram. Contrast injection was performed. Exam performed in department. Left Ventricle Normal LV size. Left ventricular systolic function is lower limits of normal. The estimated ejection fraction is 53 %. Stage 1 diastolic dysfunction. No regional wall motion abnormalities noted. Right Ventricle Normal RV size. ICD or pacer leads identified within the right ventricle. Normal systolic function. Atria Normal left atrium. Normal right atrium. Mitral Valve Normal mitral valve. Mild (1+) eccentric mitral valve insufficiency. Tricuspid Valve Normal tricuspid valve. Mild tricuspid valve insufficiency. Pulmonary artery systolic pressure is 28 mmHg. Aortic Valve Trisinus/trileaflet aortic valve. Mild (1+) aortic valve insufficiency. Pulmonic Valve Normal pulmonic valve. Mild (1+) pulmonic valve insufficiency. Great Vessels Normal aortic root. The pulmonary artery is normal size. Normal inferior vena cava. Pericardium/Pleural No pericardial effusion. Medication Diluted definity 4ml given slow IV push to enhance endocardial definition. MMode/2D Measurements & Calculations LVIDd: 4.6 cm IVSd: 1.1 cm Ao root diam: 3.2 cm LVIDs: 3.5 cm LVPWd: 1.1 cm RVDd: 3.0 cm FS: 23.1 % LAV(MOD-bp): 43.9 ml LVAd ap4: 29.7 cm2 SV(MOD-sp4): 41.4 ml LAV(MOD-bp) Indexed: 26.3 ml/m2 EDV(MOD-sp4): 92.8 ml LAV(MOD-sp2): 47.8 ml EDV(sp4-el): 96.1 ml LAV(MOD-sp4): 37.7 ml LVAs ap4: 20.3 cm2 ESV(MOD-sp4): 51.4 ml ESV(sp4-el): 53.7 ml EF(MOD-sp4): 44.6 % EF(sp4-el): 44.1 % SV(sp4-el): 42.4 ml LA A4 area: 15.1 cm2 LA dimension(2D): 4.4 cm RA A4 area: 12.5 cm2 Doppler Measurements & Calculations MV E max zen: 68.3 cm/sec Lat Peak E' Zen: 12.8 cm/sec Med Peak E' Zen: 4.8 cm/sec MV A max zen: 89.5 cm/sec E/E' lat: 5.3 E/E' med: 14.1 MV E/A: 0.76 Ao V2 max: 157.9 cm/sec AI max zen: 374.1 cm/sec LV V1 max: 87.9 cm/sec Ao max P.0 mmHg AI max P.0 mmHg LV V1 max P.1 mmHg Ao V2 mean: 113.9 cm/sec Ao mean P.7 mmHg AI dec slope: 183.9 cm/sec2 Ao V2 VTI: 39.9 cm AI P1/2t: 595.7 msec PA V2 max: 110.7 cm/sec PI end-d zen: 130.0 cm/sec TR max zen: 246.5 cm/sec TR max P.3 mmHg Interpretation Summary Normal LV size. Left ventricular systolic function is lower limits of normal. Mild (1+) aortic valve insufficiency. Pulmonary artery systolic pressure is 28 mmHg. The estimated ejection fraction is 53 %. Stage 1 diastolic dysfunction. Contrast injection was performed. Ordering Physician: Anupam Lizarraga Referring Physician: Michaela Mcfadden Performed By: Lynette Doran, BARBARA, RVT
== END ==
PROVIDERS: PCP Family Medicine; Referring Provider Internal Medicine Cardiovascular Disease; Visit Provider Internal Medicine Cardiovascular Disease
DX: R06.02 Shortness of breath (principal); R06.00 Dyspnea, unspecified
CPT/HCPCS: 93306; Q9957; A4216; C8929

== ENCOUNTER 2020-03-04 12:41 | Outpatient (RCR) | payer MEDICARE, SELFPAY ==
[2020-03-04 13:32] LABS: Prothrombin Time (Protime)PT. 22.4 SECONDS (11.7-14.9)
== END 2020-03-04 18:00 | disposition home or self-care (01) ==
LOC: LAB 12:41
PROVIDERS: Family Provider Family Medicine; PCP Family Medicine; Referring Provider Internal Medicine Cardiovascular Disease; Visit Provider Internal Medicine Cardiovascular Disease
DX: I48.0 Paroxysmal atrial fibrillation (principal); Z79.01 Long term (current) use of anticoagulants
CPT/HCPCS: 36415; 85610

== ENCOUNTER 2020-04-16 10:19 | Outpatient (RCR) | payer MEDICARE, SELFPAY ==
[2020-04-16 11:27] LABS: International Normalized Ratio 2.5; Prothrombin Time (Protime)PT. 26.8 SECONDS (11.7-14.9)
== END 2020-04-16 18:00 | disposition home or self-care (01) ==
LOC: LAB 10:19
PROVIDERS: Family Provider Family Medicine; PCP Family Medicine; Referring Provider Internal Medicine Cardiovascular Disease; Visit Provider Internal Medicine Cardiovascular Disease
DX: I48.0 Paroxysmal atrial fibrillation (principal); Z79.01 Long term (current) use of anticoagulants
CPT/HCPCS: 36415; 85610

== ENCOUNTER → 2020-05-28 09:00 | Outpatient (CLI) | payer MEDICARE, SELFPAY ==
[2020-05-28 12:17] LABS: Absolute Lymphocyte Count 1.78 X10^3/uL (0.83-4.51); Absolute Neutrophil Count 2.9 X10^3/uL (2.0-7.7); Basophil# 0.08 X10^3/uL; Basophil% 1.5 % (0-1); Eosinophils% 3.6 % (0-5); Hematocrit 34.6 % (37-47); Hemoglobin 10.6 g/dL (12.0-15.0); Lymphocyte # 1.78 X10^3/ul (4.0); Lymphocyte % 32.4 % (19-41); Mean Corp Hgb Conc 30.6 g/dL (32-36); Mean Corpuscular Hgb 31.1 pg (27.0-32.0); Mean Corpuscular Volume 101.5 fL (81-99); Mean Platelet Vol. 10.4 fl (6.2-12.0); Monocyte# 0.58 X10^3/uL; Monocyte% 10.6 % (0-10); NRBC Flagged by Analyzer 0 % (0-5); Neutrophil # 2.85 X10^3/uL (2.7-7.7); Neutrophil % 51.9 % (47-70); Platelet Count 236 K/mm3 (150-450); RBC Distribution Width CV 17.7 % (11.6-14.6); RBC Distribution Width SD 64.9 fl (35.1-43.9); Red Blood Count 3.41 M/mm3 (4.2-5.4); White Blood Count 5.5 K/mm3 (4.4-11.0)
[2020-05-28 13:09] LABS: ALB/GLOB Ratio 1.1 RATIO (0.9-2.4); AST(SGOT) 21 U/L (15-37); Alanine Aminotransfer ALT/SGPT 15 U/L (13-56); Alkaline Phosphatase 64 U/L (45-117); Anion Gap 5 (5-15); BUN 23 mg/dL (7-18); BUN/Creat Ratio 20.7 RATIO (10-20); CRP < 2.90 mg/L (0.0-3.0); Calcium,Total 9.4 mg/dL (8.5-10.1); Chloride 104 mmol/L (98-107); Creatinine, Serum 1.11 mg/dL (0.55-1.02); EST Glomerular Filtration Rate 51 mL/min (>60); Est Glom Filt Rate - Afr Amer 62 mL/min (>60); Globulin 3.6 g/dL (2.2-4.2); Glucose 87 mg/dL (74-106); Lipase 196 U/L (73-393); Potassium 4.1 mmol/L (3.5-5.1); Protein, Total 7.6 g/dL (6.4-8.2); Sodium Level 137 mmol/L (136-145)
== END ==
PROVIDERS: PCP Family Medicine; Visit Provider Family Medicine
DX: R10.9 Unspecified abdominal pain (principal); I48.0 Paroxysmal atrial fibrillation; Z79.01 Long term (current) use of anticoagulants
CPT/HCPCS: 36415; 80053; 83690; 85025; 85610; 86140

== ENCOUNTER 2020-05-28 09:03 | Outpatient (RCR) | payer MEDICARE, SELFPAY ==
[2020-05-28 09:29] LABS: Prothrombin Time (Protime)PT. 22.1 SECONDS (11.7-14.9)
== END 2020-05-28 18:00 ==
LOC: LAB 09:03
PROVIDERS: Family Provider Family Medicine; PCP Family Medicine; Referring Provider Internal Medicine Cardiovascular Disease; Visit Provider Internal Medicine Cardiovascular Disease
DX: I48.0 Paroxysmal atrial fibrillation (principal); Z79.01 Long term (current) use of anticoagulants
CPT/HCPCS: 36415; 85610

== ENCOUNTER → 2020-06-06 08:40 | Outpatient (CLI) | payer MEDICARE, SELFPAY ==
--- NOTE | 2020-06-06 08:42 | US_ITS ---
STUDY: ABDOMINAL ULTRASOUND - RIGHT UPPER QUADRANT REASON FOR VISIT: Female, 74 years old ruq pain TECHNIQUE: Ultrasound evaluation of the right upper quadrant was performed with real-time and static noble-scale imaging. TECHNICAL QUALITY: Limited. Examination limited due to the patient?s condition. COMPARISON: None. FINDINGS: Liver: The liver measures 11.9 cm. There is normal echogenicity of the liver. The bile ducts are within normal limits. There is hepatic color flow. The direction of portal flow is hepatopetal. There is no demonstrated mass lesion. Gallbladder: Normal distended gallbladder. The gallbladder wall measures 2 mm. There is a negative sonographic Levine''s sign. There is no pericholecystic fluid. There are no gallstones. Common Bile Duct (C.B.D.): The common bile duct measures 5 mm. Pancreas: Normal size of the head, body and tail of the pancreas. There is normal echogenicity of the pancreas. There is no demonstrated pancreatic mass or cyst. Right Kidney: There is atrophy of the right kidney. The right kidney measures 7.8 cm x 3.5 cm x 3.9 cm. There is thinning of the renal cortex. The right cortex measures 0.9 cm. There is no demonstrated renal mass or cyst. There is no right hydronephrosis. US/Abdomen Limited IMPRESSION: Mild right renal cortical atrophy. Electronically Signed: David Cody, at 15:39 EST , Service support ,
--- NOTE | 2020-06-06 09:23 | RAD_ITS ---
HISTORY: RIGHT SIDED FLANK PAIN, HX OF MULTIPLE COMPRESSION FX'S, POSSIBLY REFERRED PAIN FOR THORACIC COMPARISON: A two-view chest x-ray from January 08, 2017 FINDINGS: # of images incl. paperwork: 2 XR Spine Thoracic 2 Views: Left chest wall, dual lead left subclavian access cardiac pacer persists. Severe wedge compression fracture of the T8 vertebral body that is undergone vertebroplasty is unchanged. Thoracic vertebral bodies demonstrate wedging at several levels, most severe at T8 Wedging to the T12 vertebral body and even to the L1 vertebral body has progressed since the previous study. Superior endplate old insufficiency fractures of the L3 vertebral body is unchanged.. . Some facet arthropathy RAD/Thoracic Spine 2 Views IMPRESSION: Was similar on the January 08, 2017 study. Wedging to the T6 and to a lesser degree the T8 7 vertebral bodies is similar to the previous study. New on today's study, but not necessarily acute, but is a wedge compression insufficiency fracture of the T12 vertebral body with some additional loss of height of the superior endplate of the L1 vertebral body. There are no findings on the x-ray may confirm if these are acute or chronic. A nuclear medicine bone scan or an MRI of the thoracic spine at the thoracolumbar junction may be beneficial to assess for the acuity of the L1 and T12 wedge compression insufficiency fractures that are new since December 2016 at 0209 Reported and signed by: Reginaldo Garcia MD Electronically Signed: Reginaldo Garcia MD at 2:08 EST Tel , Service support ,
== END ==
PROVIDERS: PCP Family Medicine; Referring Provider Family Medicine; Visit Provider Family Medicine
DX: R10.11 Right upper quadrant pain (principal)
CPT/HCPCS: 72070; 76705

== ENCOUNTER 2020-06-17 08:11 | Outpatient (RCR) | payer MEDICARE, SELFPAY ==
[2020-06-17 09:49] LABS: International Normalized Ratio 2.8; Prothrombin Time (Protime)PT. 29.4 SECONDS (11.7-14.9)
== END 2020-06-17 18:00 | disposition home or self-care (01) ==
LOC: LAB 08:11
PROVIDERS: Family Provider Family Medicine; PCP Family Medicine; Referring Provider Internal Medicine Cardiovascular Disease; Visit Provider Internal Medicine Cardiovascular Disease
DX: I48.0 Paroxysmal atrial fibrillation (principal); Z79.01 Long term (current) use of anticoagulants
CPT/HCPCS: 36415; 85610

== ENCOUNTER 2020-07-22 09:46 | Outpatient (RCR) | payer MEDICARE, SELFPAY ==
[2020-07-22 10:53] LABS: International Normalized Ratio 3.3; Prothrombin Time (Protime)PT. 33.4 SECONDS (11.7-14.9)
== END 2020-07-22 18:00 | disposition home or self-care (01) ==
LOC: LAB 09:46
PROVIDERS: Family Provider Family Medicine; PCP Family Medicine; Referring Provider Internal Medicine Cardiovascular Disease; Visit Provider Internal Medicine Cardiovascular Disease
DX: I48.0 Paroxysmal atrial fibrillation (principal); Z79.01 Long term (current) use of anticoagulants
CPT/HCPCS: 36415; 85610

== ENCOUNTER 2020-08-07 11:01 | Outpatient (RCR) | payer MEDICARE, SELFPAY ==
[2020-08-07 12:09] LABS: Prothrombin Time (Protime)PT. 30.5 SECONDS (11.7-14.9)
== END 2020-08-07 18:00 | disposition home or self-care (01) ==
LOC: LAB 11:01
PROVIDERS: Family Provider Family Medicine; PCP Family Medicine; Referring Provider Internal Medicine Cardiovascular Disease; Visit Provider Internal Medicine Cardiovascular Disease
DX: Z79.01 Long term (current) use of anticoagulants (principal); I48.0 Paroxysmal atrial fibrillation
CPT/HCPCS: 36415; 85610

== ENCOUNTER 2020-09-03 09:21 | Outpatient (RCR) | payer MEDICARE, SELFPAY ==
[2020-09-03 11:17] LABS: International Normalized Ratio 2.9; Prothrombin Time (Protime)PT. 29.7 SECONDS (11.7-14.9)
== END 2020-09-03 18:00 | disposition home or self-care (01) ==
LOC: LAB 09:21
PROVIDERS: Family Provider Family Medicine; PCP Family Medicine; Referring Provider Internal Medicine Cardiovascular Disease; Visit Provider Internal Medicine Cardiovascular Disease
DX: I48.0 Paroxysmal atrial fibrillation (principal); Z79.01 Long term (current) use of anticoagulants
CPT/HCPCS: 36415; 85610

== ENCOUNTER 2020-10-16 09:55 | Outpatient (RCR) | payer MEDICARE, SELFPAY ==
[2020-10-16 12:02] LABS: International Normalized Ratio 2.5; Prothrombin Time (Protime)PT. 26.3 SECONDS (11.7-14.9)
== END 2020-10-16 18:00 | disposition home or self-care (01) ==
LOC: LAB 09:55
PROVIDERS: Family Provider Family Medicine; PCP Family Medicine; Referring Provider Internal Medicine Cardiovascular Disease; Visit Provider Internal Medicine Cardiovascular Disease
DX: I48.0 Paroxysmal atrial fibrillation (principal); Z79.01 Long term (current) use of anticoagulants
CPT/HCPCS: 36415; 85610

== ENCOUNTER 2020-11-28 08:52 | Outpatient (RCR) | payer MEDICARE, SELFPAY ==
[2020-11-28 10:01] LABS: International Normalized Ratio 2.8
== END 2020-11-28 18:00 | disposition home or self-care (01) ==
LOC: LAB 08:52
PROVIDERS: Family Provider Family Medicine; PCP Family Medicine; Referring Provider Internal Medicine Cardiovascular Disease; Visit Provider Internal Medicine Cardiovascular Disease
DX: I48.0 Paroxysmal atrial fibrillation (principal); Z79.01 Long term (current) use of anticoagulants
CPT/HCPCS: 36415; 85610

== ENCOUNTER 2021-01-01 13:23 | Outpatient (RCR) | payer MEDICARE, SELFPAY ==
[2021-01-01 13:53] LABS: International Normalized Ratio 2.8
== END 2021-01-01 18:00 | disposition home or self-care (01) ==
LOC: LAB 13:23
PROVIDERS: Family Provider Family Medicine; PCP Family Medicine; Referring Provider Internal Medicine Cardiovascular Disease; Visit Provider Internal Medicine Cardiovascular Disease
DX: I48.0 Paroxysmal atrial fibrillation (principal); Z79.01 Long term (current) use of anticoagulants
CPT/HCPCS: 36415; 85610

== ENCOUNTER 2021-03-05 09:22 | Outpatient (RCR) | payer MEDICARE, SELFPAY ==
[2021-01-28 20:06] VITALS: BMI 23.6
[2021-03-05 10:27] LABS: International Normalized Ratio 2.5; Prothrombin Time (Protime)PT. 26.3 SECONDS (11.7-14.9)
== END 2021-03-30 03:40 | disposition home or self-care (01) ==
LOC: LAB 09:22
PROVIDERS: Family Provider Family Medicine; PCP Family Medicine; Referring Provider Internal Medicine Cardiovascular Disease; Visit Provider Internal Medicine Cardiovascular Disease
DX: I48.0 Paroxysmal atrial fibrillation (principal); Z79.01 Long term (current) use of anticoagulants
CPT/HCPCS: 36415; 85610

== ENCOUNTER 2021-04-21 09:21 | Outpatient (RCR) | payer MEDICARE, SELFPAY ==
[2021-03-30 03:40] VITALS: BMI 23.6
[2021-04-08 17:03] LABS: International Normalized Ratio 1.6; Prothrombin Time (Protime)PT. 18.3 SECONDS (11.7-14.9)
[2021-04-21 10:13] LABS: International Normalized Ratio 2.2; Prothrombin Time (Protime)PT. 23.3 SECONDS (11.7-14.9)
== END 2021-04-29 18:00 | disposition home or self-care (01) ==
LOC: LAB 09:21
PROVIDERS: Physician Assistant Medical; Family Provider Family Medicine; PCP Family Medicine; Referring Provider Internal Medicine Cardiovascular Disease; Visit Provider Internal Medicine Cardiovascular Disease
DX: I48.0 Paroxysmal atrial fibrillation (principal)
CPT/HCPCS: 36415; 85610

== ENCOUNTER 2021-05-21 09:07 | Outpatient (RCR) | payer MEDICARE, SELFPAY ==
[2021-04-30 02:17] VITALS: BMI 23.6
[2021-05-21 11:04] LABS: International Normalized Ratio 3.2; Prothrombin Time (Protime)PT. 31.8 SECONDS (11.7-14.9)
== END 2021-05-31 18:00 | disposition home or self-care (01) ==
LOC: LAB 09:07
PROVIDERS: Family Provider Family Medicine; PCP Family Medicine; Referring Provider Internal Medicine Cardiovascular Disease; Visit Provider Internal Medicine Cardiovascular Disease
DX: I48.0 Paroxysmal atrial fibrillation (principal)
CPT/HCPCS: 36415; 85610

== ENCOUNTER 2021-06-03 09:12 | Outpatient (RCR) | payer MEDICARE, SELFPAY ==
[2021-06-01 04:05] VITALS: BMI 23.6
[2021-06-03 12:08] LABS: International Normalized Ratio 2.7; Prothrombin Time (Protime)PT. 27.4 SECONDS (11.7-14.9)
== END 2021-06-30 18:00 | disposition home or self-care (01) ==
LOC: LAB 09:12
PROVIDERS: Family Provider Family Medicine; PCP Family Medicine; Referring Provider Internal Medicine Cardiovascular Disease; Visit Provider Internal Medicine Cardiovascular Disease
DX: I48.0 Paroxysmal atrial fibrillation (principal)
CPT/HCPCS: 36415; 85610

== ENCOUNTER 2021-07-01 09:51 | Outpatient (RCR) | payer MEDICARE, SELFPAY ==
[2021-06-30 22:53] VITALS: BMI 23.6
[2021-07-01 11:25] LABS: Prothrombin Time (Protime)PT. 29.9 SECONDS (11.7-14.9)
== END 2021-07-01 18:00 | disposition home or self-care (01) ==
LOC: LAB 09:51
PROVIDERS: Family Provider Family Medicine; PCP Family Medicine; Referring Provider Internal Medicine Cardiovascular Disease; Visit Provider Internal Medicine Cardiovascular Disease
DX: I48.0 Paroxysmal atrial fibrillation (principal)
CPT/HCPCS: 36415; 85610

== ENCOUNTER 2021-08-28 09:08 | Outpatient (RCR) | payer MEDICARE, SELFPAY ==
[2021-07-29 09:37] VITALS: BMI 23.6
[2021-08-06 09:51] LABS: International Normalized Ratio 3.3; Prothrombin Time (Protime)PT. 32.8 SECONDS (11.7-14.9)
[2021-08-12 09:55] LABS: Prothrombin Time (Protime)PT. 31.8 SECONDS (11.7-14.9)
[2021-08-12 09:56] LABS: International Normalized Ratio 3.2
[2021-08-28 10:34] LABS: International Normalized Ratio 2.7; Prothrombin Time (Protime)PT. 27.9 SECONDS (11.7-14.9)
== END 2021-08-28 18:00 | disposition home or self-care (01) ==
LOC: LAB 09:08
PROVIDERS: Family Provider Family Medicine; PCP Family Medicine; Referring Provider Internal Medicine Cardiovascular Disease; Visit Provider Internal Medicine Cardiovascular Disease
DX: I48.0 Paroxysmal atrial fibrillation (principal)
CPT/HCPCS: 36415; 85610

== ENCOUNTER 2021-09-25 09:04 | Outpatient (RCR) | payer MEDICARE, SELFPAY ==
[2021-08-29 01:41] VITALS: BMI 23.6
[2021-09-17 09:08] LABS: International Normalized Ratio 1.6; Prothrombin Time (Protime)PT. 18.7 SECONDS (11.7-14.9)
[2021-09-25 09:39] LABS: International Normalized Ratio 2.7; Prothrombin Time (Protime)PT. 28.6 SECONDS (11.7-14.9)
== END 2021-09-25 18:00 | disposition home or self-care (01) ==
LOC: LAB 09:04
PROVIDERS: Family Provider Family Medicine; PCP Family Medicine; Referring Provider Internal Medicine Cardiovascular Disease; Visit Provider Internal Medicine Cardiovascular Disease
DX: I48.0 Paroxysmal atrial fibrillation (principal)
CPT/HCPCS: 36415; 85610

== ENCOUNTER 2021-10-21 09:33 | Outpatient (RCR) | payer MEDICARE, SELFPAY ==
[2021-09-28 03:17] VITALS: BMI 23.6
[2021-10-21 10:05] LABS: Absolute Lymphocyte Count 1.08 X10^3/uL (0.83-4.51); Absolute Neutrophil Count 2.2 X10^3/uL (2.0-7.7); Basophil# 0.06 X10^3/uL; Basophil% 1.5 % (0-1); Eosinophil# 0.18 X10^3/uL; Eosinophils% 4.5 % (0-5); Hematocrit 35.4 % (37-47); Lymphocyte # 1.08 X10^3/ul (0.83-4.51); Lymphocyte % 27.1 % (19-41); Mean Corp Hgb Conc 31.1 g/dL (32-36); Mean Corpuscular Hgb 31.6 pg (27.0-32.0); Mean Corpuscular Volume 101.7 fL (81-99); Mean Platelet Vol. 10.1 fl (6.2-12.0); Monocyte# 0.43 X10^3/uL; Monocyte% 10.8 % (0-10); NRBC Flagged by Analyzer 0 % (0-5); Neutrophil # 2.23 X10^3/uL (2.7-7.7); Neutrophil % 55.8 % (47-70); POSITIVE MORPHOLOGY YES; Platelet Count 211 K/mm3 (150-450); RBC Distribution Width CV 18.6 % (11.6-14.6); RBC Distribution Width SD 68.8 fl (35.1-43.9); Red Blood Count 3.48 M/mm3 (4.2-5.4)
[2021-10-21 10:08] LABS: Differential Indicated SCAN CRITERIA MET
[2021-10-21 10:24] LABS: Anion Gap 5 (5-15); BUN 22 mg/dL (7-18); Calcium,Total 9.3 mg/dL (8.5-10.1); Chloride 107 mmol/L (98-107); Creatinine, Serum 1.05 mg/dL (0.55-1.02); EST Glomerular Filtration Rate 54 mL/min (>60); Est Glom Filt Rate - Afr Amer 66 mL/min (>60); Glucose 91 mg/dL (74-106); International Normalized Ratio 2.7; Potassium 4.6 mmol/L (3.5-5.1); Prothrombin Time (Protime)PT. 28.6 SECONDS (11.7-14.9); Sodium Level 136 mmol/L (136-145)
[2021-10-21 10:32] LABS: Anisocytosis 1+
== END 2021-10-21 18:00 | disposition home or self-care (01) ==
LOC: LAB 09:33
PROVIDERS: Physician Assistant Medical; Family Provider Family Medicine; PCP Family Medicine; Referring Provider Internal Medicine Cardiovascular Disease; Visit Provider Internal Medicine Cardiovascular Disease
DX: I48.0 Paroxysmal atrial fibrillation (principal); I42.8 Other cardiomyopathies; Z79.01 Long term (current) use of anticoagulants
CPT/HCPCS: 36415; 80048; 85025; 85610

== ENCOUNTER 2021-11-17 13:44 | Outpatient (RCR) | payer MEDICARE, SELFPAY ==
[2021-10-28 20:37] VITALS: BMI 23.6
[2021-11-17 15:16] LABS: International Normalized Ratio 3.1; Prothrombin Time (Protime)PT. 31.4 SECONDS (11.7-14.9)
== END 2021-11-17 23:59 | disposition home or self-care (01) ==
LOC: LAB 13:44
PROVIDERS: Family Provider Family Medicine; PCP Family Medicine; Referring Provider Internal Medicine Cardiovascular Disease; Visit Provider Internal Medicine Cardiovascular Disease
DX: I48.0 Paroxysmal atrial fibrillation (principal); Z79.01 Long term (current) use of anticoagulants
CPT/HCPCS: 36415; 85610

== ENCOUNTER 2021-12-05 08:39 | Outpatient (RCR) | payer MEDICARE, SELFPAY ==
[2021-11-28 06:54] VITALS: BMI 23.6
[2021-12-05 09:31] LABS: International Normalized Ratio 2.5
== END 2021-12-28 02:13 | disposition home or self-care (01) ==
LOC: LAB 08:39
PROVIDERS: Family Provider Family Medicine; PCP Family Medicine; Referring Provider Internal Medicine Cardiovascular Disease; Visit Provider Internal Medicine Cardiovascular Disease
DX: I48.0 Paroxysmal atrial fibrillation (principal)
CPT/HCPCS: 36415; 85610

== ENCOUNTER 2022-01-05 11:24 | Outpatient (RCR) | payer MEDICARE, SELFPAY ==
[2021-12-28 02:14] VITALS: BMI 23.6
[2022-01-05 12:28] LABS: International Normalized Ratio 2.8; Prothrombin Time (Protime)PT. 29.5 SECONDS (11.7-14.9)
== END 2022-01-05 18:00 | disposition home or self-care (01) ==
LOC: LAB 11:24
PROVIDERS: Family Provider Family Medicine; PCP Family Medicine; Referring Provider Internal Medicine Cardiovascular Disease; Visit Provider Internal Medicine Cardiovascular Disease
DX: I48.0 Paroxysmal atrial fibrillation (principal)
CPT/HCPCS: 36415; 85610

== ENCOUNTER 2022-02-04 11:22 | Outpatient (RCR) | payer MEDICARE, SELFPAY ==
[2022-01-28 22:52] VITALS: BMI 23.6
[2022-02-04 11:46] LABS: International Normalized Ratio 2.4; Prothrombin Time (Protime)PT. 25.9 SECONDS (11.7-14.9)
== END 2022-02-04 18:00 | disposition home or self-care (01) ==
LOC: LAB 11:22
PROVIDERS: Family Provider Family Medicine; PCP Family Medicine; Referring Provider Internal Medicine Cardiovascular Disease; Visit Provider Internal Medicine Cardiovascular Disease
DX: I48.0 Paroxysmal atrial fibrillation (principal)
CPT/HCPCS: 36415; 85610

== ENCOUNTER 2022-03-05 09:11 | Outpatient (RCR) | payer MEDICARE, SELFPAY ==
[2022-02-27 21:19] VITALS: BMI 23.6
[2022-03-05 10:38] LABS: International Normalized Ratio 2.8; Prothrombin Time (Protime)PT. 29.1 SECONDS (11.7-14.9)
== END 2022-03-05 18:00 | disposition home or self-care (01) ==
LOC: LAB 09:11
PROVIDERS: Family Provider Family Medicine; PCP Family Medicine; Referring Provider Internal Medicine Cardiovascular Disease; Visit Provider Internal Medicine Cardiovascular Disease
DX: I48.0 Paroxysmal atrial fibrillation (principal)
CPT/HCPCS: 36415; 85610

== ENCOUNTER 2022-04-15 09:13 | Outpatient (RCR) | payer MEDICARE, SELFPAY ==
[2022-03-31 09:49] VITALS: BMI 23.6
[2022-04-15 09:59] LABS: International Normalized Ratio 2.9; Prothrombin Time (Protime)PT. 30.2 SECONDS (11.7-14.9)
== END 2022-04-29 18:00 | disposition home or self-care (01) ==
LOC: LAB 09:13
PROVIDERS: Family Provider Family Medicine; PCP Family Medicine; Referring Provider Internal Medicine Cardiovascular Disease; Visit Provider Internal Medicine Cardiovascular Disease
DX: I48.0 Paroxysmal atrial fibrillation (principal); Z79.01 Long term (current) use of anticoagulants
CPT/HCPCS: 36415; 85610

== ENCOUNTER → 2022-05-15 | Outpatient (CLI) | payer MEDICARE, SELFPAY ==
--- NOTE | 2022-05-15 07:37 | ECHOD_ITS ---
Reason For Study: Murmur Procedure This was a 2D Doppler, Color Flow transthoracic echocardiogram. Exam performed in department. Left Ventricle Normal LV size. Left ventricular systolic function is lower limits of normal. The estimated ejection fraction is 53 %. No regional wall motion abnormalities noted. Apical wall motion abnormality may reflect pacemaker activation. Right Ventricle Normal RV size. ICD or pacer leads identified within the right ventricle. Normal systolic function. Atria Normal left atrium. Normal right atrium. Mitral Valve Normal mitral valve. Mild (1+) eccentric mitral valve insufficiency. Tricuspid Valve Normal tricuspid valve. Trivial tricuspid valve insufficiency. Aortic Valve Trisinus/trileaflet aortic valve. Pulmonic Valve Normal pulmonic valve. Great Vessels Normal aortic root. The pulmonary artery is normal size. Normal inferior vena cava. Pericardium/Pleural No pericardial effusion. MMode/2D Measurements & Calculations LVIDd: 5.1 cm IVSd: 0.88 cm LVOT diam: 2.0 cm LVIDs: 3.3 cm LVPWd: 0.80 cm LVOT area: 3.2 cm2 RVDd: 3.4 cm FS: 35.6 % Ao root diam: 3.6 cm LAV(MOD-bp): 55.2 ml LA A4 area: 17.2 cm2 LA dimension: 4.3 cm LAV(MOD-bp) Indexed: 33.1 ml/m2 LAV(MOD-sp2): 61.5 ml LAV(MOD-sp4): 48.5 ml RA A4 area: 14.5 cm2 Time Measurements MV dec time: 0.22 sec Doppler Measurements & Calculations MV E max zen: 75.4 cm/sec Lat Peak E' Zen: 17.6 cm/sec Med Peak E' Zen: 7.5 cm/sec MV A max zen: 88.8 cm/sec E/E' lat: 4.3 E/E' med: 10.1 MV E/A: 0.85 MV V2 max: 102.7 cm/sec MV P1/2t max zen: 102.7 cm/sec Ao V2 max: 242.8 cm/sec MV max P.2 mmHg MV P1/2t: 87.5 msec Ao max P.6 mmHg MV V2 mean: 66.2 cm/sec MV dec slope: 343.8 cm/sec2 Ao V2 mean: 170.8 cm/sec MV mean P.0 mmHg Ao mean P.2 mmHg MV V2 VTI: 31.9 cm MVA(P1/2t): 2.5 cm2 Ao V2 VTI: 60.3 cm MVA(VTI): 2.2 cm2 AV (velocity ratio): 0.36 AGAPITO(I,D): 1.2 cm2 AGAPITO(V,D): 1.1 cm2 AI max zen: 356.6 cm/sec LV V1 max: 85.9 cm/sec MR max zen: 563.2 cm/sec AI max P.9 mmHg LV V1 max P.0 mmHg MR max P.9 mmHg LV V1 mean P.5 mmHg AI dec slope: 160.9 cm/sec2 LV V1 mean: 57.5 cm/sec AI P1/2t: 649.2 msec LV V1 VTI: 21.7 cm SV(LVOT): 69.5 ml PA V2 max: 94.4 cm/sec PI dec slope: 197.8 cm/sec2 TR max zen: 255.3 cm/sec TR max P.1 mmHg ECHO/Echo Complete Interpretation Summary Normal LV size. Left ventricular systolic function is lower limits of normal. The estimated ejection fraction is 53 %. Mild (1+) eccentric mitral valve insufficiency. Trivial tricuspid valve insufficiency. Ordering Physician: Brook Gage Referring Physician: Brook Gage Performed By: Fabricio Cortes RCS
--- NOTE | 2022-05-15 12:35 | STRESSREP ---
Stress Test Report Pharmacologic myocardial perfusion stress test. 76-year-old lady with a history of chest pain Resting EKG demonstrates sinus rhythm with a left bundle branch block. Resting heart rate is 60 bpm. Resting blood pressure is 116/60 mmHg. 0.4 mg of regadenoson was infused per usual protocol followed by rapid intravenous saline flush injection. Continuous EKG monitoring was performed. The maximum heart rate was 82 bpm which was 56% of max impacted heart rate the maximum workload was 1 metabolic equivalent. At rest there were no ST or T wave changes noted to suggest ischemia and at peak infusion nonspecific ST changes were noted with did not meet the criteria for ischemia. Occasional premature ventricular complexes noted. No clinical angina is noted. The final blood pressure was 124/60 mmHg. Myocardial perfusion protocol. 11.4 mCi of technetium 99m sestamibi was injected at rest. 0.4 mg of regadenoson was infused per usual protocol. At peak infusion 33.3 mCi of technetium 99m sestamibi was injected stress images were obtained stress and rest images were reconstructed and compared in the short axis vertical long and horizontal long axis. Gated images were also obtained. Perfusion SPECT analysis: Review of the stress images demonstrate normal uptake of tracer noted in all areas of the myocardium. The resting images similar demonstrated normal uptake of tracer noted in all areas of the myocardium. No areas of reversibility are noted to suggest ischemia and no previous infarct is noted. Gated SPECT analysis: The gated ejection fraction is 32%. Conclusion: Normal pharmacologic myocardial perfusion stress test. Reduced ejection fraction.
== END | disposition home or self-care (01) ==
PROVIDERS: PCP Family Medicine; Referring Provider Physician Assistant Medical; Visit Provider Physician Assistant Medical
DX: R07.9 Chest pain, unspecified (principal); I42.8 Other cardiomyopathies; I48.0 Paroxysmal atrial fibrillation; Z79.01 Long term (current) use of anticoagulants
CPT/HCPCS: 36415; 78452; 85610; 93017; 93306; A9500; A4216; J2785

== ENCOUNTER 2022-05-29 08:18 | Outpatient (RCR) | payer MEDICARE, SELFPAY ==
[2022-04-29 23:02] VITALS: BMI 23.6
[2022-04-30 10:41] LABS: Hematocrit 35.5 % (37-47); Hemoglobin 10.9 g/dL (12.0-15.0); Mean Corp Hgb Conc 30.7 g/dL (32-36); Mean Corpuscular Hgb 31.2 pg (27.0-32.0); Mean Corpuscular Volume 101.7 fL (81-99); Mean Platelet Vol. 10.7 fl (6.2-12.0); POSITIVE MORPHOLOGY YES; Platelet Count 238 K/mm3 (150-450); RBC Distribution Width CV 18.6 % (11.6-14.6); RBC Distribution Width SD 67.7 fl (35.1-43.9); Red Blood Count 3.49 M/mm3 (4.2-5.4); White Blood Count 5.1 K/mm3 (4.4-11.0)
[2022-04-30 11:10] LABS: International Normalized Ratio 1.6; Prothrombin Time (Protime)PT. 18.4 SECONDS (11.7-14.9)
[2022-04-30 11:19] LABS: Scan Indicated on CBC? Y/N YES- FLAGS NOTED
[2022-05-15 12:45] LABS: International Normalized Ratio 3.2; Prothrombin Time (Protime)PT. 32.1 SECONDS (11.7-14.9)
[2022-05-29 09:10] LABS: Hematocrit 33.4 % (37-47); Hemoglobin 10.5 g/dL (12.0-15.0); Mean Corp Hgb Conc 31.4 g/dL (32-36); Mean Corpuscular Hgb 32.1 pg (27.0-32.0); Mean Corpuscular Volume 102.1 fL (81-99); Mean Platelet Vol. 10.2 fl (6.2-12.0); POSITIVE MORPHOLOGY YES; Platelet Count 205 K/mm3 (150-450); RBC Distribution Width CV 18.6 % (11.6-14.6); RBC Distribution Width SD 68.2 fl (35.1-43.9); Red Blood Count 3.27 M/mm3 (4.2-5.4)
[2022-05-29 09:38] LABS: International Normalized Ratio 2.8; Prothrombin Time (Protime)PT. 29.2 SECONDS (11.7-14.9); Scan Indicated on CBC? Y/N YES- FLAGS NOTED
[2022-05-29 09:48] LABS: AST(SGOT) 19 U/L (15-37); Alanine Aminotransfer ALT/SGPT 18 U/L (13-56); Albumin, Serum 3.5 g/dL (3.2-5.0); Alkaline Phosphatase 63 U/L (45-117); Amylase 101 U/L (25-115); Anion Gap 4 (5-15); BUN 20 mg/dL (7-18); BUN/Creat Ratio 17.9 RATIO (10-20); Calcium,Total 8.7 mg/dL (8.5-10.1); Chloride 107 mmol/L (98-107); Creatinine, Serum 1.12 mg/dL (0.55-1.02); EST Glomerular Filtration Rate 50 mL/min (>60); Est Glom Filt Rate - Afr Amer 61 mL/min (>60); Globulin 3.4 g/dL (2.2-4.2); Glucose 87 mg/dL (74-106); Lipase 208 U/L (73-393); Potassium 3.9 mmol/L (3.5-5.1); Protein, Total 6.9 g/dL (6.4-8.2); Sodium Level 140 mmol/L (136-145)
[2022-05-29 10:01] LABS: Differential Comment SCANNED
[2022-05-30 11:12] LABS: Carbohydrate AG 19-9 35 U/mL (0-35); H. Pylori Antibody (IgG) 0.12 (0.00-0.79)
== END 2022-05-29 18:00 | disposition home or self-care (01) ==
LOC: LAB 08:18
PROVIDERS: Physician Assistant Medical; Family Provider Family Medicine; PCP Family Medicine; Referring Provider Internal Medicine Cardiovascular Disease; Visit Provider Internal Medicine Cardiovascular Disease
DX: I48.0 Paroxysmal atrial fibrillation (principal); Z79.01 Long term (current) use of anticoagulants
CPT/HCPCS: 36415; 80053; 82150; 83690; 85027; 85610; 86301; 86677

== ENCOUNTER 2022-07-13 09:04 | Outpatient (RCR) | payer MEDICARE, SELFPAY ==
[2022-05-31 02:03] VITALS: BMI 23.6
[2022-07-01 10:04] LABS: International Normalized Ratio 3.3; Prothrombin Time (Protime)PT. 33.3 SECONDS (11.7-14.9)
[2022-07-13 10:45] LABS: International Normalized Ratio 2.7; Prothrombin Time (Protime)PT. 28.2 SECONDS (11.7-14.9)
== END 2022-07-13 18:00 | disposition home or self-care (01) ==
LOC: LAB 09:04
PROVIDERS: Family Provider Family Medicine; PCP Family Medicine; Referring Provider Internal Medicine Cardiovascular Disease; Visit Provider Internal Medicine Cardiovascular Disease
DX: Z79.01 Long term (current) use of anticoagulants
CPT/HCPCS: 36415; 85610

== ENCOUNTER 2022-08-20 09:28 | Outpatient (RCR) | payer MEDICARE, SELFPAY ==
[2022-07-28 20:01] VITALS: BMI 23.6
[2022-07-31 09:58] LABS: International Normalized Ratio 2.9; Prothrombin Time (Protime)PT. 29.9 SECONDS (11.7-14.9)
[2022-08-20 10:39] LABS: International Normalized Ratio 2.7; Prothrombin Time (Protime)PT. 28.4 SECONDS (11.7-14.9)
== END 2022-08-28 23:00 | disposition home or self-care (01) ==
LOC: LAB 09:28
PROVIDERS: Family Provider Family Medicine; PCP Family Medicine; Referring Provider Internal Medicine Cardiovascular Disease; Visit Provider Internal Medicine Cardiovascular Disease
DX: Z79.01 Long term (current) use of anticoagulants (principal); I48.0 Paroxysmal atrial fibrillation
CPT/HCPCS: 36415; 85610

== ENCOUNTER → 2022-09-04 | Outpatient (CLI) | payer MEDICARE, SELFPAY ==
[2022-09-04 12:10] LABS: Absolute Lymphocyte Count 1.58 X10^3/uL (0.83-4.51); Absolute Neutrophil Count 2.3 X10^3/uL (2.0-7.7); Basophil# 0.07 X10^3/uL; Basophil% 1.5 % (0-1); Eosinophil# 0.33 X10^3/uL; Eosinophils% 6.9 % (0-5); Hematocrit 31.4 % (37-47); Hemoglobin 9.8 g/dL (12.0-15.0); Lymphocyte # 1.58 X10^3/ul (0.83-4.51); Lymphocyte % 33.3 % (19-41); Mean Corp Hgb Conc 31.2 g/dL (32-36); Mean Corpuscular Hgb 31.5 pg (27.0-32.0); Mean Platelet Vol. 10.7 fl (6.2-12.0); Monocyte# 0.47 X10^3/uL; Monocyte% 9.9 % (0-10); NRBC Flagged by Analyzer 0 % (0-5); Neutrophil # 2.29 X10^3/uL (2.7-7.7); Neutrophil % 48.2 % (47-70); POSITIVE MORPHOLOGY YES; Platelet Count 183 K/mm3 (150-450); RBC Distribution Width CV 19.3 % (11.6-14.6); RBC Distribution Width SD 71.8 fl (35.1-43.9); Red Blood Count 3.11 M/mm3 (4.2-5.4); White Blood Count 4.8 K/mm3 (4.4-11.0)
[2022-09-04 13:20] LABS: Differential Indicated SCAN CRITERIA MET
[2022-09-04 13:22] LABS: Anisocytosis 2+; Differential Comment SCANNED; Erythrocyte Sedimentation Rate 16 mm/hr (0-30); Hypochromasia 1+; Ovalocyte 1+
[2022-09-04 13:23] LABS: ALB/GLOB Ratio 1.2 RATIO (0.9-2.4); AST(SGOT) 20 U/L (15-37); Alanine Aminotransfer ALT/SGPT 11 U/L (13-56); Albumin, Serum 3.9 g/dL (3.2-5.0); Alkaline Phosphatase 61 U/L (45-117); Amylase 90 U/L (25-115); Anion Gap 3 (5-15); BUN 17 mg/dL (7-18); BUN/Creat Ratio 16.8 RATIO (10-20); CRP < 2.90 mg/L (0.0-3.0); Calcium,Total 9.1 mg/dL (8.5-10.1); Chloride 108 mmol/L (98-107); Creatinine, Serum 1.01 mg/dL (0.55-1.02); EST Glomerular Filtration Rate 57 mL/min (>60); Est Glom Filt Rate - Afr Amer 69 mL/min (>60); Globulin 3.2 g/dL (2.2-4.2); Glucose 94 mg/dL (74-106); Lipase 258 U/L (73-393); Potassium 4.2 mmol/L (3.5-5.1); Protein, Total 7.1 g/dL (6.4-8.2); Sodium Level 139 mmol/L (136-145)
[2022-09-07 15:08] LABS: Albumin 3.9 g/dL (2.9-4.4); Alpha-1-Globulins 0.3 g/dL (0.0-0.4); Alpha-2-Globulins 0.5 g/dL (0.4-1.0); Anti-Centromere B Ab <0.2 AI (0.0-0.9); Anti-Chromatin <0.2 AI (0.0-0.9); Anti-Jo <0.2 AI (0.0-0.9); Anti-Scleroderma-70 AB <0.2 AI (0.0-0.9); Cytoplasmic Ab (C-ANCA) <1:20 titer (Neg:<1:20); Endomysial Antibody IgA Negative (Negative); HEPATITIS B SURFACE AG Negative (Negative); Hep C Antibodies Non Reactive (Non Reactive); Hepatitis A IgM Antibody Negative (Negative); Hepatitis B Core AB IgM Negative (Negative); IgG, Quant 1066 mg/dL (586-1602); Immunoglobulin A 427 mg/dL (64-422); Immunoglobulin G, Subclass 1 581 mg/dL (248-810); Immunoglobulin G, Subclass 2 269 mg/dL (130-555); Immunoglobulin G, Subclass 3 167 mg/dL (15-102); Immunoglobulin G, Subclass 4 74 mg/dL (2-96); Immunoglobulin M 117 mg/dL (26-217); PROEL- TOTAL PROTEIN 6.6 g/dL (6.0-8.5); RNP Ab <0.2 AI (0.0-0.9); SJOGREN'S Anti-SS-A test < 0.2 AI (0.0-0.9); SJOGREN'S Anti-SS-B test < 0.2 AI (0.0-0.9); Smith Ab <0.2 AI (0.0-0.9)
[2022-09-07 15:39] LABS: Anti-dsDNA Ab 1 IU/mL (0-9); Carbohydrate Ag 19-9 2261 24 U/mL (0-35)
[2022-09-07 15:40] LABS: Immunoglobulin A 407 mg/dL (64-422); Immunoglobulin E 74 IU/mL (6-495); Perinuclear Ab (P-ANCA) <1:20 titer (Neg:<1:20); t-Transglutaminase IgA <2 U/mL (0-3)
== END | disposition home or self-care (01) ==
LOC: LAB 11:04
PROVIDERS: PCP Family Medicine; Referring Provider Internal Medicine Gastroenterology; Visit Provider Internal Medicine Gastroenterology
DX: R10.9 Unspecified abdominal pain (principal); I42.8 Other cardiomyopathies; R53.83 Other fatigue
CPT/HCPCS: 36415; 80053; 80074; 82150; 82784; 82785; 82787; 83516; 83690; 84165; 85025; 85652; 86140; 86225; 86235; 86255; 86256; 86301; 86334

== ENCOUNTER 2022-09-17 10:06 | Outpatient (RCR) | payer MEDICARE, SELFPAY ==
[2022-08-29 00:08] VITALS: BMI 23.6
[2022-09-17 11:16] LABS: International Normalized Ratio 2.2
== END 2022-09-27 01:13 | disposition home or self-care (01) ==
LOC: LAB 10:06
PROVIDERS: Family Provider Family Medicine; PCP Family Medicine; Referring Provider Internal Medicine Cardiovascular Disease; Visit Provider Internal Medicine Cardiovascular Disease
DX: Z79.01 Long term (current) use of anticoagulants (principal); I48.0 Paroxysmal atrial fibrillation
CPT/HCPCS: 36415; 85610

== ENCOUNTER → 2022-09-30 | Outpatient (CLI) | payer MEDICARE, SELFPAY ==
--- NOTE | 2022-09-30 08:03 | NM_ITS ---
CLINICAL: 77-year-old female with history of clinical gastroparesis, chronic nausea. SEMI-SOLID PHASE 99m Tc SULFUR COLLOID GASTRIC EMPTYING STUDY COMPARISON: None available FINDINGS: The patient was administered 1.2 mCi of 99m Tc sulfur colloid mixed with oatmeal and consumed per os. Image acquisitions in the anterior-posterior projections were obtained for 60 minutes. There is prompt visualization of the stomach. There is no gastroesophageal reflux identified. The T ? raw data emptying was calculated to be 37.13 minutes, (Normal: 12-56 minutes). NM/Gastric Emptying Study IMPRESSION: 1. NORMAL 99m Tc sulfur colloid semi-solid phase (oatmeal) gastric emptying imaging examination. A. There is normal and preserved semi-solid phase gastric emptying compared to normal controls. (Zahraa et al, J Nucl Med Tech 38: 186, 2010). Electronically Signed: Eric Snell, at 23:00 EDT ,
== END | disposition home or self-care (01) ==
LOC: NM 08:02
PROVIDERS: PCP Family Medicine; Referring Provider Internal Medicine Gastroenterology; Visit Provider Internal Medicine Gastroenterology
DX: K31.84 Gastroparesis (principal); R10.9 Unspecified abdominal pain
CPT/HCPCS: 78264; A9541

== ENCOUNTER → 2022-10-09 | Outpatient (CLI) | payer MEDICARE, SELFPAY ==
--- NOTE | 2022-10-09 09:49 | NM_ITS ---
CLINICAL: 77-year-old female with history of abdominal pain. RADIONUCLIDE HEPATOBILIARY SCINTIGRAPHY COMPARISON: Previous hepatobiliary scintigraphy study report dated 02/26/2012 FINDINGS: Following the intravenous administration of 5.6 mCi of 99m Tc Mebrofenin, hepatobiliary images reveal: 1. Relatively prompt and homogeneous radiopharmaceutical concentration is noted by a normal sized liver. No parenchymal defects are identified. 2. Gallbladder activity is identified at 15 minutes post radiopharmaceutical administration. 3. Small intestinal tract is observed at 45 minutes following tracer injection. 4. Washout of the radiopharmaceutical by the hepatic parenchyma appears qualitatively normal. Cholecystokinin (0.02 ug/kg) was administered intravenously over a 30-minute period. The post CCK gallbladder ejection fraction calculated at 20 minutes following Cholecystokinin administration was noted to be 26.0 % (normal greater than 35%). MA/Hepatobilliary Img w/Pharm Int IMPRESSION: 1. ABNORMAL 99m Tc Mebrofenin hepatobiliary imaging examination with Cholecystokinin. A. A gallbladder ejection fraction calculated to be less than 35% following the administration of Cholecystokinin is consistent with the presence of functional hepatobiliary disease (gallbladder and/or sphincter of Oddi dyskinesia) and/or organic hepatobiliary disease (chronic acalculous cholecystitis and/or cystic duct syndrome) in patients with intermediate to high pretest probabilities of hepatobiliary illness. (Buffy Birch et al, Journal of Nuclear Medicine 32:1695, 1991). Electronically Signed: Eric Snell, at 9:22 EDT ,
== END | disposition home or self-care (01) ==
LOC: NM 09:47
PROVIDERS: PCP Family Medicine; Referring Provider Internal Medicine Gastroenterology; Visit Provider Internal Medicine Gastroenterology
DX: R10.9 Unspecified abdominal pain (principal)
CPT/HCPCS: 78227; A9537; J2805

== ENCOUNTER 2022-10-22 09:19 | Outpatient (RCR) | payer MEDICARE, SELFPAY ==
[2022-09-27 01:13] VITALS: BMI 23.6
[2022-10-22 09:55] LABS: International Normalized Ratio 2.5; Prothrombin Time (Protime)PT. 27.5 SECONDS (11.7-14.9)
== END 2022-10-28 18:00 | disposition home or self-care (01) ==
LOC: LAB 09:19
PROVIDERS: Family Provider Family Medicine; PCP Family Medicine; Referring Provider Internal Medicine Cardiovascular Disease; Visit Provider Internal Medicine Cardiovascular Disease
DX: I48.0 Paroxysmal atrial fibrillation (principal); Z79.01 Long term (current) use of anticoagulants; R10.9 Unspecified abdominal pain
CPT/HCPCS: 36415; 85610

== ENCOUNTER 2022-11-24 11:20 | Outpatient (RCR) | payer MEDICARE, SELFPAY ==
[2022-10-29 08:44] VITALS: BMI 23.6
[2022-11-24 11:49] LABS: International Normalized Ratio 2.5; Prothrombin Time (Protime)PT. 26.9 SECONDS (11.7-14.9)
== END 2022-11-24 18:00 | disposition home or self-care (01) ==
LOC: LAB 11:20
PROVIDERS: Family Provider Family Medicine; PCP Family Medicine; Referring Provider Internal Medicine Cardiovascular Disease; Visit Provider Internal Medicine Cardiovascular Disease
DX: I48.0 Paroxysmal atrial fibrillation (principal); Z79.01 Long term (current) use of anticoagulants; K82.9 Disease of gallbladder, unspecified
CPT/HCPCS: 36415; 76705; 85610

== ENCOUNTER → 2022-11-24 | Outpatient (CLI) | payer MEDICARE, SELFPAY ==
--- NOTE | 2022-11-24 08:48 | US_ITS ---
STUDY: ABDOMINAL ULTRASOUND - RIGHT UPPER QUADRANT REASON FOR VISIT: Female, 77 years old gallbladder TECHNIQUE: Ultrasound evaluation of the right upper quadrant was performed with real-time and static noble-scale imaging. TECHNICAL QUALITY: Adequate. COMPARISON: None. FINDINGS: Liver: The liver measures 12 cm. There is normal echogenicity of the liver. The bile ducts are dilated.. There is hepatic color flow. The direction of portal flow is hepatopetal. There is no demonstrated mass lesion. Gallbladder: Normal distended gallbladder. The gallbladder wall measures 2-3 mm. There is a negative sonographic Levine''s sign. There is no pericholecystic fluid. There are no gallstones. Common Bile Duct (C.B.D.): The common bile duct measures 7-9 mm without intraductal stones. Pancreas: Normal size of the head, body and tail of the pancreas. There is normal echogenicity of the pancreas. There is no demonstrated pancreatic mass or cyst. Mildly dilated pancreatic duct measuring 3 mm Right Kidney: There is atrophy of the right kidney. The right kidney measures 7.6 x 4.3 x 3.2 cm. Thin renal cortex. The right cortex measures 0.7 cm. There is no demonstrated renal mass or cyst. There is no right hydronephrosis. US/Gallbladder IMPRESSION: Intrahepatic bile ductal dilatation as well as dilatation of the pancreatic duct without evidence for intraductal stones or definitive evidence for pancreatic mass.. MRI/MRCP recommended to exclude possibility of obstructing of ampullary lesion Electronically Signed: Otilio Duarte MD at 20:20 EDT ,
== END | disposition home or self-care (01) ==
LOC: OPUS 08:47
PROVIDERS: PCP Family Medicine; Referring Provider Surgery; Visit Provider Surgery
DX: K82.9 Disease of gallbladder, unspecified (principal)
CPT/HCPCS: 76705

== ENCOUNTER 2022-12-18 09:18 | Outpatient (RCR) | payer MEDICARE, SELFPAY ==
[2022-11-27 21:58] VITALS: BMI 23.6
[2022-12-18 10:07] LABS: International Normalized Ratio 2.7
== END 2022-12-28 18:00 | disposition home or self-care (01) ==
LOC: LAB 09:18
PROVIDERS: Family Provider Family Medicine; PCP Family Medicine; Referring Provider Internal Medicine Cardiovascular Disease; Visit Provider Internal Medicine Cardiovascular Disease
DX: I48.0 Paroxysmal atrial fibrillation (principal); Z79.01 Long term (current) use of anticoagulants; K82.9 Disease of gallbladder, unspecified
CPT/HCPCS: 36415; 85610

== ENCOUNTER 2023-01-21 09:26 | Outpatient (RCR) | payer MEDICARE, SELFPAY ==
[2022-12-29 00:31] VITALS: BMI 23.6
[2023-01-21 11:51] LABS: International Normalized Ratio 2.2; Prothrombin Time (Protime)PT. 24.7 SECONDS (11.7-14.9)
== END 2023-01-21 18:00 | disposition home or self-care (01) ==
LOC: LAB 09:26
PROVIDERS: Family Provider Family Medicine; PCP Family Medicine; Referring Provider Internal Medicine Cardiovascular Disease; Visit Provider Internal Medicine Cardiovascular Disease
DX: I48.0 Paroxysmal atrial fibrillation (principal); Z79.01 Long term (current) use of anticoagulants; K82.9 Disease of gallbladder, unspecified
CPT/HCPCS: 36415; 85610

== ENCOUNTER 2023-02-22 09:33 | Outpatient (RCR) | payer MEDICARE, SELFPAY ==
[2023-01-28 22:35] VITALS: BMI 23.6
[2023-02-22 10:36] LABS: International Normalized Ratio 2.4; Prothrombin Time (Protime)PT. 26.8 SECONDS (11.7-14.9)
== END 2023-02-22 18:00 | disposition home or self-care (01) ==
LOC: LAB 09:33
PROVIDERS: Family Provider Family Medicine; PCP Family Medicine; Referring Provider Internal Medicine Cardiovascular Disease; Visit Provider Internal Medicine Cardiovascular Disease
DX: I48.0 Paroxysmal atrial fibrillation (principal); Z79.01 Long term (current) use of anticoagulants; K82.9 Disease of gallbladder, unspecified
CPT/HCPCS: 36415; 85610

== ENCOUNTER 2023-03-25 10:00 | Outpatient (RCR) | payer MEDICARE, SELFPAY ==
[2023-02-28 02:03] VITALS: BMI 23.6
[2023-03-25 11:20] LABS: International Normalized Ratio 2.9; Prothrombin Time (Protime)PT. 30.5 SECONDS (11.7-14.9)
== END 2023-03-25 18:00 | disposition home or self-care (01) ==
LOC: LAB 10:00
PROVIDERS: Family Provider Family Medicine; PCP Family Medicine; Referring Provider Internal Medicine Cardiovascular Disease; Visit Provider Internal Medicine Cardiovascular Disease
DX: I48.0 Paroxysmal atrial fibrillation (principal); Z79.01 Long term (current) use of anticoagulants; K82.9 Disease of gallbladder, unspecified
CPT/HCPCS: 36415; 85610

== ENCOUNTER 2023-04-21 09:28 | Outpatient (RCR) | payer MEDICARE, SELFPAY ==
[2023-03-30 23:18] VITALS: BMI 23.6
[2023-04-21 10:59] LABS: International Normalized Ratio 3.4; Prothrombin Time (Protime)PT. 34.8 SECONDS (11.7-14.9)
== END 2023-04-29 18:00 | disposition home or self-care (01) ==
LOC: LAB 09:28
PROVIDERS: Family Provider Family Medicine; PCP Family Medicine; Referring Provider Internal Medicine Cardiovascular Disease; Visit Provider Internal Medicine Cardiovascular Disease
DX: I48.0 Paroxysmal atrial fibrillation (principal); Z79.01 Long term (current) use of anticoagulants
CPT/HCPCS: 36415; 85610

== ENCOUNTER 2023-04-30 08:49 | Outpatient (RCR) | payer MEDICARE, SELFPAY ==
[2023-04-30 03:30] VITALS: BMI 23.6
[2023-04-30 09:33] LABS: International Normalized Ratio 2.4; Prothrombin Time (Protime)PT. 26.2 SECONDS (11.7-14.9)
== END 2023-05-30 18:00 | disposition home or self-care (01) ==
LOC: LAB 08:49
PROVIDERS: Family Provider Family Medicine; PCP Family Medicine; Referring Provider Internal Medicine Cardiovascular Disease; Visit Provider Internal Medicine Cardiovascular Disease
DX: I48.0 Paroxysmal atrial fibrillation (principal); Z79.01 Long term (current) use of anticoagulants
CPT/HCPCS: 36415; 85610

== ENCOUNTER 2023-06-16 08:10 | Outpatient (RCR) | payer MEDICARE, SELFPAY ==
[2023-05-30 20:38] VITALS: BMI 23.6
[2023-06-02 09:50] LABS: International Normalized Ratio 3.1; Prothrombin Time (Protime)PT. 32.7 SECONDS (11.7-14.9)
[2023-06-16 08:43] LABS: International Normalized Ratio 3.3; Prothrombin Time (Protime)PT. 34.3 SECONDS (11.7-14.9)
== END 2023-06-16 18:00 | disposition home or self-care (01) ==
LOC: LAB 08:10
PROVIDERS: Family Provider Family Medicine; PCP Family Medicine; Referring Provider Internal Medicine Cardiovascular Disease; Visit Provider Internal Medicine Cardiovascular Disease
DX: I48.0 Paroxysmal atrial fibrillation (principal); Z79.01 Long term (current) use of anticoagulants
CPT/HCPCS: 36415; 85610

== ENCOUNTER 2023-07-29 09:05 | Outpatient (RCR) | payer MEDICARE, SELFPAY ==
[2023-06-30 21:58] VITALS: BMI 23.6
[2023-07-01 10:09] LABS: International Normalized Ratio 2.8; Prothrombin Time (Protime)PT. 29.8 SECONDS (11.7-14.9)
[2023-07-29 10:08] LABS: International Normalized Ratio 2.3; Prothrombin Time (Protime)PT. 24.9 SECONDS (11.7-14.9)
== END 2023-07-29 18:00 | disposition home or self-care (01) ==
LOC: LAB 09:05
PROVIDERS: Family Provider Family Medicine; PCP Family Medicine; Referring Provider Internal Medicine Cardiovascular Disease; Visit Provider Internal Medicine Cardiovascular Disease
DX: I48.0 Paroxysmal atrial fibrillation (principal); Z79.01 Long term (current) use of anticoagulants
CPT/HCPCS: 36415; 85610

== ENCOUNTER → 2023-08-24 | Outpatient (CLI) | payer MEDICARE, SELFPAY ==
--- NOTE | 2023-08-24 10:15 | RAD_ITS ---
STUDY: X-RAY CHEST REASON FOR EXAM: Female, 78 years old. For PPM generator change -- for PPM generator change TECHNIQUE: PA and lateral views of the chest. COMPARISON: Comparison is made with prior study dated July 15, 2018. FINDINGS: Stable elevation of the anterior aspect of the right hemidiaphragm. There is no demonstrated pleural abnormality. There is borderline cardiomegaly. A left-sided dual-chamber pacemaker is seen. Normal mediastinum and patricia. Normal visualized pulmonary arteries. There is atherosclerotic calcification of the aortic arch with tortuosity. There is demineralization of the osseous structures. Increased kyphosis. Almost complete collapse of a mid dorsal vertebrae. Prior vertebroplasty. Normal visualized ribs, clavicles, and shoulders. There is no demonstrated abnormality of the visualized soft tissue structures of the upper abdomen. RAD/Chest PA and Lateral IMPRESSION: Stable examination. No acute abnormality is seen. Electronically Signed: David Cody MD at 11:30 EDT ,
== END | disposition home or self-care (01) ==
LOC: RAD 10:08
PROVIDERS: PCP Family Medicine; Referring Provider Internal Medicine Cardiovascular Disease; Visit Provider Internal Medicine Cardiovascular Disease
DX: Z95.0 Presence of cardiac pacemaker (principal); I49.5 Sick sinus syndrome; I44.1 Atrioventricular block, second degree
CPT/HCPCS: 71046

== ENCOUNTER 2023-09-13 10:33 | Day surgery (SDC) | payer MEDICARE, SELFPAY ==
[2023-08-24 10:33] LABS: Mucous, Urine 0 SEEN /hpf (<or=2+)
[2023-08-24 11:02] LABS: Hematocrit 33.4 % (37-47); Hemoglobin 10.4 g/dL (12.0-15.0); Mean Corp Hgb Conc 31.1 g/dL (32-36); Mean Corpuscular Hgb 30.6 pg (27.0-32.0); Mean Corpuscular Volume 98.2 fL (81-99); Mean Platelet Vol. 10.1 fl (6.2-12.0); POSITIVE MORPHOLOGY YES; Platelet Count 233 K/mm3 (150-450); RBC Distribution Width SD 72.5 fl (35.1-43.9)
[2023-08-24 11:04] LABS: Scan Indicated on CBC? Y/N YES- FLAGS NOTED
[2023-08-24 11:09] LABS: Color, Urine Yellow (Yellow); Glucose, Dipstick Normal (Normal); Ketone-Dipstick Negative (Negative); Leukocyte Esterase-Dipstick 500 /ul (Negative); Nitrite-Dipstick Negative (Negative); Occult Blood-Urine 10 /ul (Negative); Protein-Dipstick Negative (Negative); Specific Gravity, Urine 1.015 (1.002-1.030); Urine Bilirubin Dipstick Negative (Negative); Urine Clarity Sl. Cloudy (Clear); Urine Urobilinogen Normal (Normal)
[2023-08-24 11:15] LABS: International Normalized Ratio 2.9; Prothrombin Time (Protime)PT. 30.1 SECONDS (11.7-14.9)
[2023-08-24 11:16] LABS: Bacteria 1+ /hpf (None Seen); Red Blood Cells-Urine 0-5 SEEN /hpf (0-5); Squamous Epithelial Cells - UA 0-5 SEEN /hpf (5-10); White Blood Cells 25-50 SEEN /hpf (0-5)
[2023-08-24 11:23] LABS: Anion Gap 9 (5-15); BUN 25 mg/dL (7-18); BUN/Creat Ratio 21.4 RATIO (10-20); Calcium,Total 9.4 mg/dL (8.5-10.1); Chloride 108 mmol/L (98-107); Creatinine, Serum 1.17 mg/dL (0.55-1.02); EST Glomerular Filtration Rate 48 mL/min (>60); Est Glom Filt Rate - Afr Amer 58 mL/min (>60); Glucose 107 mg/dL (74-106); Potassium 4.2 mmol/L (3.5-5.1); Sodium Level 141 mmol/L (136-145)
[2023-08-24 11:43] LABS: Differential Comment SCANNED
[2023-09-10 08:49] VITALS: BMI 23.0
[2023-09-13 10:42] LABS: INR Fingerstick 1.2; Prothrombin Time Fingerstick 13.3 SEC (11.7-14.9)
--- NOTE | 2023-09-13 12:47 | CL.IE_ITS ---
Patient: JC GROSS Study Date: 09/13/2023 Performing: Anupam Lizarraga MD : 1945 Age: 78 Gender: female PROCEDURES PERFORMED [id number])BATTERY REMOVAL+REPLACEMENT PACER-DUAL LEAD INDICATIONS Atrioventricular (AV) block PROCEDURE DETAILS The patient was brought to the Catheterization Lab in the postabsorptive nonsedated state. Informed consent was obtained prior to the procedure. Local anesthetic was given subcutaneously to the left upper chest area with Lidocaine 2%. Incision was made to the left upper chest. PPM generator was removed. PPM generator was attached to the lead(s) and inserted into the pocket. PPM generator was then interrogated by the lead java programmer. Device pocket was irrigated with antibiotic. Subcutaneous closure was completed with 3-0 Vicryl. Skin closure was completed with 4-0 Vicryl. Steri-strips applied to Lt chest area. The patient tolerated the procedure well. 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: [employer], Model # [employer]io MRI L111 , Serial # [id number] DEVICE PARAMETERS ATRIAL LEAD PARAMETERS: P wave- 1.1 (mV) Current- 1.7 (mA) threshold- 0.6 (V) impedence- 359 (OHMS) VENTRICULAR LEAD PARAMETERS: R wave- 14.3 (mV) Current- 1.2 (mA) threshold- 0.8 (V) impedence- 666 (OHMS) DEVICE PARAMETERS: Mode- DDDR Lower rate- 60 Upper rate- 120 CONCLUSIONS / RECOMMENDATIONS Device Conclusions: Successful implantation of a dual chamber pacemaker battery change and replacement Device Recommendations: Follow up with Primary Care Physician PROCEDURE MEDICATIONS Fentanyl 50 mcg IV Versed 1 mg IV Oxygen: 2 L/min via nasal cannula Antibiotic given in appropriate timeframe. Ancef 2 Gm IV @ 09/13/2023 11:48:15 Signed By Anupam Lizarraga MD On 09/13/2023 12:46:42 Anupam Lizarraga MD
== END 2023-09-13 13:45 | disposition home or self-care (01) ==
PROVIDERS: Referring Provider Internal Medicine Cardiovascular Disease; Visit Provider Internal Medicine Cardiovascular Disease
DX: Z95.0 Presence of cardiac pacemaker (principal); I50.22 Chronic systolic (congestive) heart failure; I42.8 Other cardiomyopathies; Z79.01 Long term (current) use of anticoagulants; Z79.899 Other long term (current) drug therapy
CPT/HCPCS: 33228; 36415; 36416; 80048; 81001; 85027; 85610; 99152; 99153; J7040; J7050

== ENCOUNTER 2023-10-28 09:58 | Outpatient (RCR) | payer MEDICARE, SELFPAY ==
[2023-07-29 22:31] VITALS: BMI 23.6
[2023-10-28 11:25] LABS: International Normalized Ratio 3.3; Prothrombin Time (Protime)PT. 33.5 SECONDS (11.7-14.9)
== END 2023-10-29 18:00 | disposition home or self-care (01) ==
LOC: LAB 09:58
PROVIDERS: Family Provider Family Medicine; PCP Family Medicine; Referring Provider Internal Medicine Cardiovascular Disease; Visit Provider Internal Medicine Cardiovascular Disease
DX: I48.0 Paroxysmal atrial fibrillation (principal); Z79.01 Long term (current) use of anticoagulants
CPT/HCPCS: 36415; 85610

== ENCOUNTER 2023-11-11 08:42 | Outpatient (RCR) | payer MEDICARE, SELFPAY ==
[2023-11-01 09:27] VITALS: BMI 23.6
[2023-11-11 10:27] LABS: International Normalized Ratio 3.3; Prothrombin Time (Protime)PT. 32.9 SECONDS (11.7-14.9)
== END 2023-11-11 18:00 | disposition home or self-care (01) ==
LOC: LAB 08:42
PROVIDERS: Family Provider Family Medicine; PCP Family Medicine; Referring Provider Internal Medicine Cardiovascular Disease; Visit Provider Internal Medicine Cardiovascular Disease
DX: I48.0 Paroxysmal atrial fibrillation (principal); Z79.01 Long term (current) use of anticoagulants
CPT/HCPCS: 36415; 85610

== ENCOUNTER 2023-12-17 09:48 | Outpatient (RCR) | payer MEDICARE, SELFPAY ==
[2023-11-28 22:22] VITALS: BMI 23.6
[2023-11-30 10:29] LABS: International Normalized Ratio 2.6; Prothrombin Time (Protime)PT. 27.3 SECONDS (11.7-14.9)
[2023-12-17 10:30] LABS: Prothrombin Time (Protime)PT. 22.3 SECONDS (11.7-14.9)
== END 2023-12-29 18:00 | disposition home or self-care (01) ==
LOC: LAB 09:48
PROVIDERS: Family Provider Family Medicine; PCP Family Medicine; Referring Provider Internal Medicine Cardiovascular Disease; Visit Provider Internal Medicine Cardiovascular Disease
DX: I48.0 Paroxysmal atrial fibrillation (principal); Z79.01 Long term (current) use of anticoagulants
CPT/HCPCS: 36415; 85610

== ENCOUNTER → 2024-01-11 | Outpatient (CLI) | payer MEDICARE, SELFPAY ==
--- NOTE | 2024-01-11 08:45 | RAD_ITS ---
INDICATION: R/O FX AND DISPLACEMENT RIGHT EXAMINATION/TECHNIQUE: X-RAY - XR Ribs Unilateral W/ PA Chest Min 3 Views COMPARISON: Prior study dated: 08/24/2023 FINDINGS: SOFT TISSUES: No soft tissue swelling or gas. BONES: Fractures of the anterior aspect of the right eighth and ninth and possibly seventh ribs. The views however are suboptimal. No sclerotic or destructive changes observed. VISUALIZED LUNGS: Left-sided dual-chamber cardiac pacer device. No evidence of pneumothorax or pleural effusions. RAD/Ribs Uni Min 3V w/PA Chest IMPRESSION: Fractures of the right eighth and ninth ribs. Electronically Signed: Lisandro Barr MD at 15:15 EDT ,
== END | disposition home or self-care (01) ==
PROVIDERS: PCP Family Medicine; Referring Provider Nurse Practitioner Family; Visit Provider Nurse Practitioner Family
DX: M54.9 Dorsalgia, unspecified (principal)
CPT/HCPCS: 71101

== ENCOUNTER 2024-01-12 11:49 | Emergency (ER) | payer MEDICARE, SELFPAY ==
[2024-01-12] VITALS (7 sets, daily range): BP systolic 124–138; BP diastolic 59–75; PULSE 62–121; RESP 16–22; TEMP 36.3–36.7; O2SAT 96–98; BMI 25.0
--- NOTE | 2024-01-12 11:52 | RAD_ITS ---
STUDY: X-RAY CHEST REASON FOR EXAM: Female, 78 years old. Chest pain. TECHNIQUE: Single frontal view of the chest. COMPARISON: January 11, 2024 FINDINGS: Low volume inspiration with bibasilar atelectasis. There is no demonstrated pleural abnormality. Stable cardiomegaly with dual lead cardiac pacer. Normal mediastinum and patricia. Normal visualized pulmonary arteries. Aortic tortuosity with calcification unchanged. No abnormality of the visualized soft tissue structures of the upper abdomen. RAD/Chest 1 View (Portable) IMPRESSION: Stable chest with no acute or active cardiopulmonary disease. Electronically Signed: Shayan Guzmán MD at 12:42 EDT ,
--- NOTE | 2024-01-12 12:01 | EDS_ITS ---
HPI History of Present Illness Chief Complaint: Chest Pain Informant: patient Onset/Context/Timing Onset: Today Timing: Continuous Quality: Positive for Sharp Location: Substernal (Xiphoid process) Current Severity: Mild Maximum Severity: Mild Worsened By: Movement of Torso Relieved By: Remaining Still Associated Symptoms: Negative for Nausea, Vomiting, Diaphoresis, Dyspnea, Cough, Fever, Lightheadedness, Acid Reflux or Palpitations Narrative Narrative: 78-year-old female with significant cardiac history of Mobitz type II, sick sinus syndrome, CHF, A-fib pacemaker and on Coumadin. States that she thought she may have broken a rib earlier this week she Radha been outpatient chest x-ray yesterday but had not had results yet. Today she was on phone with her daughter and got lower sternal chest discomfort. Worse with movement. Denies any fall or trauma. Denies any radiation to her left arm neck or jaw. No shortness of breath. No diaphoresis. No recent exertional chest pain or dyspnea. Her last heart cath was about 8 years ago in 2016. Prior Similar Symptoms: Yes Recent Illness/Hospitalization: No CVD Risk Factors: Negative for Smoking PE Risk Factors: Negative for Recent Travel/Surgery, Recent Immobilization, Prior DVT or PE, Cancer or OCP + Smoking + >/=35 TAD Risk Factors: Negative for Marfan's Syndrome [facility] Medical History Mobitz type 2 second degree atrioventricular block Sick sinus syndrome due to SA node dysfunction Chronic systolic (congestive) heart failure Paroxysmal atrial fibrillation Sinoatrial node dysfunction FH: sudden cardiac (SCD) Nonischemic cardiomyopathy Elevated troponin Acute calculous cholecystitis Home Medications ?Medication ?Instructions ?Recorded ?Last Taken ?Type calcium citrate 200 mg 1 tab PO DAILY 01/23/20 Unknown History calcium-vitamin D3 6.25 mcg (250 unit) tablet magnesium oxide 200 mg PO DAILY 01/23/20 Unknown History warfarin 2 mg tablet 2 mg PO .COMPLEX #90 tabs 11/04/22 Unknown Rx metoprolol succinate 50 mg See Rx Instructions .Route 06/03/23 Unknown Rx tablet,extended release 24 hr .COMPLEX #90 tabs ramipril 2.5 mg capsule 2.5 mg PO DAILY #90 caps 08/23/23 Unknown Rx warfarin 5 mg tablet 5 mg PO DAILY #90 TABLETS 08/23/23 Unknown Rx furosemide 20 mg tablet 20 mg PO DAILY #90 TABLETS 09/27/23 Unknown Rx Allergy/AdvReac Type Severity Reaction Status Date / Time No Known Allergies Allergy Verified 08/24/23 09:38 Family History Brother Sudden cardiac Brother Myocardial infarction, Onset Age: 40 Heart disease Sister Hypertension Surgical History History of left heart catheterization (05/27/16) Presence of permanent cardiac pacemaker (2008) Social History Smoking Status: Never smoker alcohol intake: never substance use type: does not use caffeine: Yes Type: coffee what type of physical activity do you participate in: bicycling frequency: daily duration: < 15 minutes/day seatbelt use: always do you feel safe at home: Yes ROS ROS ED ROS Narrative Denies recent illness. Denies exertional chest pain or exertional dyspnea. Constitutional Constitutional ED: Denies chills, fever(s) or subjective Eyes Eyes: Reports none ENT ENT ED: Denies ear pain Cardiovascular Cardiovascular: Reports as per HPI and chest pain; Denies palpitations or racing heartbeat Respiratory/Chest Respiratory/Chest: Denies cough, dyspnea or dyspnea on exertion Gastrointestinal Gastrointestinal: Denies abdominal pain, diarrhea, nausea or vomiting Genitourinary Genitourinary ED: Denies dysuria or hematuria Musculoskeletal Musculoskeletal: Denies arthralgias or back pain Integumentary Denies abscess or Abrasions Neurologic Neurologic: Denies headache(s) Psychiatric Psychiatric: Denies anxiety Endocrine Endocrinology: Denies cold intolerance Hematologic/Lymphatic Hematologic/Lymphatic: Denies easy bleeding, easy bruising or lymphadenopathy Allergic/Immunologic Allergic/Immunologic ED: Denies mouth swelling, tongue swelling or urticaria EXAM Physical Exam Narrative Exam Narrative: Send 8-year-old female no acute distress. Vital signs are stable. Pulse ox 98% on room air no signs hypoxia. H EENT exam unremarkable. Neck nontender. Lungs clear to auscultation bilaterally. Heart tachycardic rate about 1 24-6 systolic ejection murmur. Chest wall she has reproducible tenderness over xiphoid process. No ecchymosis or bruising. She has a chest wall consistent with pectus excavatum. There is no crepitance or bruising. Abdomen is soft and nontender. No right upper quadrant tenderness. Back nontender. No crepitance or bruising to her ribs. Moving all 4 extremities. Nontender no edema. Neurologically she is awake and alert no focal motor deficits. Const Vital Signs: 01/12/24 11:49 01/12/24 11:52 01/12/24 12:49 Temperature 98.0 F Temperature Source Temporal Pulse Rate 121 H 68 Respiratory Rate 22 H 16 Blood Pressure 138/63 H 124/75 H Blood Pressure Mean 88 91 Pulse Ox 98 98 97 Oxygen Delivery Method Room Air Room Air Room Air 01/12/24 13:00 01/12/24 14:00 01/12/24 15:00 Temperature Temperature Source Pulse Rate 64 69 62 Respiratory Rate 18 17 16 Blood Pressure 130/60 H 130/61 H 137/59 H Blood Pressure Mean 83 84 85 Pulse Ox 97 96 97 Oxygen Delivery Method Room Air Room Air Room Air Positive well nourished and well developed; Negative for obese, cachectic, contractures or unkempt General Appearance ED: well developed and NAD; Negative for unkempt, cachectic, contractures or pallor Nutritional Appearance: Negative for cachectic or obese HEENT Reports moist mucous membranes normocephalic and atraumatic; Negative for trauma or tenderness Eyes PERRL and EOMs intact bilaterally General Eye ED: Negative for pale conjunctiva or scleral icterus Neck no lymphadenopathy, supple and no JVD General: Negative for tenderness Chest Wall inspection of chest normal; Negative for palpation of chest normal Chest Narrative: Reproducible tenderness over the xiphoid process. No bruising. No crepitance. Ribs are nontender. Chest: tenderness Resp normal respiratory effort and clear to auscultation bilaterally Effort and Inspection: Negative for respiratory distress Auscultation: Negative for rales, rhonchi, wheezes or diminished lung sounds Cardio Negative for no murmurs Rhythm: abnormal rhythm irregularly irregular GI normal to inspection, nondistended, normoactive bowel sounds, soft to palpation, non-tender, non-distended and no masses Auscultation: Negative for hyperactive bowel sounds Palpation: Negative for splenomegaly or mass Back/Spine no CVA tenderness and no thoracic nor lumbar tenderness General Back: Negative for CVA tenderness Extremity normal to inspection General Extremety ED: Negative for edema or tenderness General Extremity: Negative for edema Neuro oriented x3 and CN's II-XII intact bilaterally Sensorium / Orientation: awake, alert, oriented to person, oriented to place and oriented to time; Negative for confused, lethargic or stuporous Motor Exam: strength 5/5 throughout Psych mental status grossly normal Appearance: Negative for unkempt Attitude: No agitated Mood & Affect: Negative for depressed, anxious or tearful Skin no rashes or lesions noted and no wounds General Skin Exam: Negative for jaundice or pallor Rashes: No rashes noted Trauma: Negative for abrasion or laceration Image ED - Body Diagram Man: 2 1. Tenderness over xiphoid process. Heart Score History: Slightly/Non-Suspicious ECG: Normal Age: >/= 65 years Risk Factors: 1 or 2 Risk Factors Troponin: </= Normal Limit Score: 3 MDM MDM MDM Narrative Medical decision making narrative: 78-year-old female with xiphoid process reproducible pain Jr is musculoskeletal and not cardiac chest pain obviously with her history of stroke with her cardiac workup and we will go from there. Repeat exam patient is doing well at 2:15 PM. Awaiting the 2-hour troponin. Repeat exam patient doing well at 3:12 PM. Has reproducible chest wall pain. Will be discharged home. Tylenol for pain. History & Record Review Discussion w/independent historian: Patient Additional record(s) reviewed:: Prior inpatient record, Prior outpatient record, Prior ED visit and Prior labs Lab Data Attestation: I reviewed the patient's lab results. Lab results narrative: CBC shows white count of 6. H&H 10.2 and 33.9 history of anemia. Consistent with prior. Platelets 219. Electrolytes show a gap of 6. BUN and creatinine 28 and 1.36 with a history of renal insufficiency. Glucose 122. Troponin 8. 2-hour troponin was 10. INR is 2.7. Patient is on Coumadin. Chest x-ray, portable, single view interpreted by myself and the radiologist as no acute abnormality. Left-sided pacemaker. No obvious rib fractures. No pneumothorax. I also reviewed the rib series from yesterday do not see any obvious rib fractures. That has not officially been read yet. Labs: Laboratory Results - last 24 hr 01/12/24 01/12/24 11:50 14:01 WBC 6.4 RBC 3.35 L Hgb 10.2 L Hct 33.9 L MCV 101.2 H MCH 30.4 MCHC 30.1 L RDW Std Deviation 73.8 H RDW Coeff of Chalo 19.9 H Plt Count 219 MPV 10.8 Immature Gran % (Auto) 0.300 Neut % (Auto) 52.2 Lymph % (Auto) 33.2 Glades % (Auto) 9.1 Eos % (Auto) 4.1 Baso % (Auto) 1.1 H Absolute Neuts (auto) 3.3 Absolute Lymphs (auto) 2.12 Nucleated RBC % 0 Anisocytosis 1+ PT 28.9 H INR 2.7 Sodium 140 Potassium 3.8 Chloride 104 Carbon Dioxide 30.0 Anion Gap 6 BUN 28 H Creatinine 1.36 H Estim Creat Clear Calc 30.00 Est GFR (MDRD) Af Amer 48 L Est GFR (MDRD) Non-Af 40 L BUN/Creatinine Ratio 20.6 H Glucose 122 H Calcium 9.7 Troponin I High Sens 8 10 Radiography Chest X-Ray - ED: 1 View, Read by ED Physician, Heart, Lungs, Mediastinum, Bony Structures, No Acute Disease and Chronic Changes Diagnostic Testing: Clinical Impression(s) from Imaging Studies Chest X-Ray 01/12/24 11:52 IMPRESSION: Stable chest with no acute or active cardiopulmonary disease. Electronically Signed: Shayan Guzmán MD at 12:42 EDT , Chest x-ray, portable, single view interpreted by both myself and the radiologist shows no acute abnormality. No obvious rib fractures. No pneumothorax. No effusions. Pacemaker on the left. Rhythm Strip Rhythm Strip: A-fib Rate: 70 Ectopy: None EKG Initial EKG: Attestation: I personally reviewed and interpreted this EKG as follows: Interpretation: Atrial Fibrillation Comments: A-fib rate of 70. Left bundle branch block. No acute signs of MS or ischemia. Discharge Plan Triage Chief Complaint: Chest Pain ED Provider: Elan Walls Dx/Rx/DC Orders Clinical Impression: Acute chest wall pain, Chest pain, Chronic anticoagulation, History of atrial fibrillation Instructions: ED Chest Wall Strain Prescriptions: No Action magnesium oxide 200 mg magnesium tablet 200 mg PO DAILY calcium citrate-vitamin D3 200 mg calcium -250 unit tablet 1 tab PO DAILY warfarin 2 mg tablet 2 mg PO .COMPLEX Qty: 90 3RF Protocol: Dose Management Condition: Wednesday Dose/Route: 7 mg Instruction: 1 x 2 mg tablet, 1 x 5 mg tablet Condition: Wednesday Dose/Route: 5 mg Instruction: 1 x 5 mg tablet Condition: Wednesday Dose/Route: 5 mg Instruction: 1 x 5 mg tablet Condition: Wednesday Dose/Route: 5 mg Instruction: 1 x 5 mg tablet Condition: Dose/Route: 5 mg Instruction: 1 x 5 mg tablet Condition: Wednesday Dose/Route: 5 mg Instruction: 1 x 5 mg tablet Condition: Wednesday Dose/Route: 7 mg Instruction: 1 x 2 mg tablet, 1 x 5 mg tablet Protocol Text: Adjustment Start Date: Wednesday12/17/23 INR Value: 2.0 INR Date: 12/17/23 Recheck Date: 01/14/24 Rx Instructions: 2 mg PO take with a 5mg tablet every day= 7mg except on Wednesday and Wednesday take 5mg tab; or as directed metoprolol succinate 50 mg tablet extended release 24 hr See Rx Instructions .ROUTE .COMPLEX Qty: 90 3RF Dose Instruction: TAKE 1 TABLET EVERY DAY Rx Instructions: TAKE 1 TABLET EVERY DAY warfarin 5 mg tablet 5 mg PO DAILY Qty: 90 3RF Protocol: Dose Management Condition: Wednesday Dose/Route: 7 mg Instruction: 1 x 2 mg tablet, 1 x 5 mg tablet Condition: Wednesday Dose/Route: 5 mg Instruction: 1 x 5 mg tablet Condition: Wednesday Dose/Route: 5 mg Instruction: 1 x 5 mg tablet Condition: Wednesday Dose/Route: 5 mg Instruction: 1 x 5 mg tablet Condition: Dose/Route: 5 mg Instruction: 1 x 5 mg tablet Condition: Wednesday Dose/Route: 5 mg Instruction: 1 x 5 mg tablet Condition: Wednesday Dose/Route: 7 mg Instruction: 1 x 2 mg tablet, 1 x 5 mg tablet Protocol Text: Adjustment Start Date: Wednesday12/17/23 INR Value: 2.0 INR Date: 12/17/23 Recheck Date: 01/14/24 Rx Instructions: Take 5mg daily and with a 2mg on Vyj-Hbt-Hiar-Wednesday to equal 7mg; or use as directed ramipril 2.5 mg capsule 2.5 mg PO DAILY Qty: 90 3RF furosemide 20 mg tablet 20 mg PO DAILY Qty: 90 3RF Primary Care Provider: Lynette Burton Referrals: Karissa Madrid DO [Non-Staff] - As Needed Activity Restrictions/Additional Instructions: Labs look good. This appears to be secondary to a strain of the chest wall. Tylenol for pain. Outpatient follow-up as needed. Print Language: Syriac Disposition Disposition: Home, Self Care
[2024-01-12 12:20] LABS: Absolute Lymphocyte Count 2.12 X10^3/uL (0.83-4.51); Absolute Neutrophil Count 3.3 X10^3/uL (2.0-7.7); Basophil# 0.07 X10^3/uL; Basophil% 1.1 % (0-1); Eosinophil# 0.26 X10^3/uL; Eosinophils% 4.1 % (0-5); Hematocrit 33.9 % (37-47); Hemoglobin 10.2 g/dL (12.0-15.0); Lymphocyte # 2.12 X10^3/ul (0.83-4.51); Lymphocyte % 33.2 % (19-41); Mean Corp Hgb Conc 30.1 g/dL (32-36); Mean Corpuscular Hgb 30.4 pg (27.0-32.0); Mean Corpuscular Volume 101.2 fL (81-99); Mean Platelet Vol. 10.8 fl (6.2-12.0); Monocyte# 0.58 X10^3/uL; Monocyte% 9.1 % (0-10); NRBC Flagged by Analyzer 0 % (0-5); Neutrophil # 3.33 X10^3/uL (2.7-7.7); Neutrophil % 52.2 % (47-70); POSITIVE MORPHOLOGY YES; Platelet Count 219 K/mm3 (150-450); RBC Distribution Width CV 19.9 % (11.6-14.6); RBC Distribution Width SD 73.8 fl (35.1-43.9); Red Blood Count 3.35 M/mm3 (4.2-5.4); White Blood Count 6.4 K/mm3 (4.4-11.0)
[2024-01-12 12:22] LABS: Anion Gap 6 (5-15); BUN 28 mg/dL (7-18); BUN/Creat Ratio 20.6 RATIO (10-20); Calcium,Total 9.7 mg/dL (8.5-10.1); Chloride 104 mmol/L (98-107); Creatinine, Serum 1.36 mg/dL (0.55-1.02); EST Glomerular Filtration Rate 40 mL/min (>60); Est Glom Filt Rate - Afr Amer 48 mL/min (>60); Glucose 122 mg/dL (74-106); Potassium 3.8 mmol/L (3.5-5.1); Sodium Level 140 mmol/L (136-145); Troponin-I HS (w/2H Reflex) 8 pg/mL (3.0-54.0)
[2024-01-12 12:28] LABS: Differential Indicated SCAN CRITERIA MET
[2024-01-12 12:45] LABS: International Normalized Ratio 2.7; Prothrombin Time (Protime)PT. 28.9 SECONDS (11.7-14.9)
[2024-01-12 13:52] LABS: Anisocytosis 1+
[2024-01-12 13:57] LABS: Reflex Troponin-HS? (from REC) Y
[2024-01-12 14:27] LABS: Troponin-I HS 10 pg/mL (3.0-54.0)
== END 2024-01-12 15:30 | disposition home or self-care (01) ==
PROVIDERS: Emergency Provider Emergency Medicine; PCP Nurse Practitioner Family; Visit Provider Emergency Medicine
DX: R07.89 Other chest pain (principal); I50.22 Chronic systolic (congestive) heart failure; I42.8 Other cardiomyopathies; Z79.01 Long term (current) use of anticoagulants; Z95.0 Presence of cardiac pacemaker
CPT/HCPCS: 71045; 80048; 84484; 85025; 85610; 93005; 99284; A4216

== ENCOUNTER → 2024-02-23 | Outpatient (CLI) | payer MEDICARE, SELFPAY ==
[2024-02-23 10:26] LABS: Absolute Lymphocyte Count 1.36 X10^3/uL (0.83-4.51); Absolute Neutrophil Count 2.5 X10^3/uL (2.0-7.7); Basophil# 0.08 X10^3/uL; Basophil% 1.7 % (0-1); Eosinophil# 0.27 X10^3/uL; Eosinophils% 5.8 % (0-5); Hematocrit 32.9 % (37-47); Lymphocyte # 1.36 X10^3/ul (0.83-4.51); Lymphocyte % 29.1 % (19-41); Mean Corp Hgb Conc 30.4 g/dL (32-36); Mean Corpuscular Hgb 30.6 pg (27.0-32.0); Mean Corpuscular Volume 100.6 fL (81-99); Mean Platelet Vol. 10.9 fl (6.2-12.0); Monocyte# 0.44 X10^3/uL; Monocyte% 9.4 % (0-10); NRBC Flagged by Analyzer 0 % (0-5); Neutrophil # 2.51 X10^3/uL (2.7-7.7); Neutrophil % 53.8 % (47-70); POSITIVE MORPHOLOGY YES; Platelet Count 222 K/mm3 (150-450); RBC Distribution Width CV 19.6 % (11.6-14.6); RBC Distribution Width SD 72.4 fl (35.1-43.9); Red Blood Count 3.27 M/mm3 (4.2-5.4); White Blood Count 4.7 K/mm3 (4.4-11.0)
[2024-02-23 10:30] LABS: Differential Indicated SCAN CRITERIA MET
[2024-02-23 10:49] LABS: BNP,B-Type NATRIURETIC PEPTIDE 363.8 pg/mL (0-100)
[2024-02-23 10:52] LABS: Anisocytosis 2+; Differential Comment SCANNED; Iron 92 ug/dL (50-170); Iron Binding Capacity,Total 297 ug/dL (250-450)
== END | disposition home or self-care (01) ==
LOC: LAB 09:38
PROVIDERS: PCP Nurse Practitioner Family; Referring Provider Physician Assistant Medical; Visit Provider Physician Assistant Medical
DX: R06.09 Other forms of dyspnea (principal); D64.9 Anemia, unspecified
CPT/HCPCS: 36415; 83540; 83550; 83880; 85025

== ENCOUNTER → 2024-03-06 | Outpatient (CLI) | payer MEDICARE, SELFPAY ==
--- NOTE | 2024-03-06 09:09 | ECHOD_ITS ---
Reason For Study: SOB Procedure This was a 2D Doppler, Color Flow transthoracic echocardiogram. Exam performed in department. Left Ventricle Normal LV size. Left ventricular systolic function is normal. Stage 1 diastolic dysfunction. No regional wall motion abnormalities noted. Right Ventricle Normal RV size. ICD or pacer leads identified within the right ventricle. Normal systolic function. Atria The left atrium is mildly enlarged. Normal right atrium. Tricuspid Valve Normal tricuspid valve. Mild tricuspid valve insufficiency. Pulmonary artery systolic pressure is 28 mmHg. Aortic Valve Trisinus/trileaflet aortic valve. Mild focal aortic valve calcification. Peak aortic valve gradient 32 mmHg. Mean aortic valve gradient 18 mmHg. Mild (1+) aortic valve insufficiency. Pulmonic Valve Normal pulmonic valve. Great Vessels Normal aortic root. The pulmonary artery is normal size. Normal inferior vena cava. Pericardium/Pleural No pericardial effusion. MMode/2D Measurements & Calculations LVIDd: 4.7 cm IVSd: 1.1 cm LVOT diam: 2.0 cm LVIDs: 3.4 cm LVPWd: 0.94 cm LVOT area: 3.1 cm2 RVDd: 3.6 cm FS: 28.0 % Ao root diam: 3.4 cm asc Aorta Diam: 3.4 cm LAV(MOD-bp): 82.3 ml LA dimension: 4.6 cm LAV(MOD-bp) Indexed: 50.9 ml/m2 LAV(MOD-sp2): 81.1 ml LAV(MOD-sp4): 79.3 ml LA A4 area: 23.9 cm2 RA A4 area: 16.7 cm2 Time Measurements MV dec time: 0.18 sec Doppler Measurements & Calculations MV E max zen: 88.9 cm/sec Lat Peak E' Zen: 12.7 cm/sec Med Peak E' Zen: 7.3 cm/sec MV A max zen: 97.8 cm/sec E/E' lat: 7.0 E/E' med: 12.3 MV E/A: 0.91 MV V2 max: 106.0 cm/sec MV P1/2t max zen: 106.0 cm/sec Ao V2 max: 280.2 cm/sec MV max P.5 mmHg MV P1/2t: 77.8 msec Ao max P.5 mmHg MV V2 mean: 59.3 cm/sec MV dec slope: 399.1 cm/sec2 Ao V2 mean: 199.4 cm/sec MV mean P.7 mmHg MVA(P1/2t): 2.8 cm2 Ao mean P.3 mmHg MV V2 VTI: 34.9 cm Ao V2 VTI: 74.3 cm MVA(VTI): 2.1 cm2 AV (velocity ratio): 0.31 AGAPITO(I,D): 0.96 cm2 AGAPITO(V,D): 1.1 cm2 AI max zen: 337.1 cm/sec LV V1 max: 96.5 cm/sec MR max zen: 509.6 cm/sec AI max P.5 mmHg LV V1 max P.7 mmHg MR max P.9 mmHg LV V1 mean P.7 mmHg MR mean zen: 413.3 cm/sec AI dec slope: 176.0 cm/sec2 LV V1 mean: 59.6 cm/sec MR mean P.6 mmHg AI P1/2t: 561.1 msec LV V1 VTI: 23.4 cm MR VTI: 212.4 cm SV(LVOT): 71.6 ml PA V2 max: 94.0 cm/sec PI end-d zen: 57.0 cm/sec PA max PG (full): 7.9 mmHg TR max zen: 247.2 cm/sec TR max P.4 mmHg ECHO/Echo Complete Interpretation Summary Normal LV size. Left ventricular systolic function is normal. The left atrium is mildly enlarged. Stage 1 diastolic dysfunction. Mild (1+) aortic valve insufficiency. Mean aortic valve gradient 18 mmHg. ICD or pacer leads identified within the right ventricle. Ordering Physician: Brook Gage Referring Physician: Brook Gage Performed By: Fabricio Tierney and Student
== END | disposition home or self-care (01) ==
LOC: CVS 09:08
PROVIDERS: PCP Nurse Practitioner Family; Referring Provider Physician Assistant Medical; Visit Provider Physician Assistant Medical
DX: R06.09 Other forms of dyspnea (principal)
CPT/HCPCS: 93306

== ENCOUNTER → 2024-03-20 | Outpatient (CLI) | payer MEDICARE, SELFPAY | END | disposition home or self-care (01) | LOC: LABSPEC 12:34 | PROVIDERS: PCP Nurse Practitioner Family; Referring Provider Nurse Practitioner Family; Visit Provider Nurse Practitioner Family | DX: S81.801A Unspecified open wound, right lower leg, initial encounter (principal) | CPT/HCPCS: 87070; 87075; 87077; 87186; 87205 ==

== ENCOUNTER 2024-03-24 08:31 | Outpatient (RCR) | payer MEDICARE, SELFPAY ==
[2023-12-29 21:26] VITALS: BMI 23.6
[2024-03-24 09:15] LABS: Prothrombin Time (Protime)PT. 22.5 SECONDS (11.7-14.9)
== END 2024-03-24 18:00 | disposition home or self-care (01) ==
LOC: LAB 08:31
PROVIDERS: Family Provider Family Medicine; PCP Nurse Practitioner Family; Referring Provider Internal Medicine Cardiovascular Disease; Visit Provider Internal Medicine Cardiovascular Disease
DX: I48.0 Paroxysmal atrial fibrillation (principal); Z79.01 Long term (current) use of anticoagulants
CPT/HCPCS: 36415; 85610

== ENCOUNTER 2024-03-30 13:50 | Outpatient (RCR) | payer MEDICARE, SELFPAY ==
[2024-03-30 14:17] VITALS: BP 138/53; PULSE 71; RESP 18; TEMP 36.1
--- NOTE | 2024-03-30 15:55 | HP.PCM_ITS ---
History of Present Illness Date of Service: 03/30/24 Chief Complaint: R posterolateral calf wound History of Wound: Jhoana Nieves is a 78 y/o female who presents today for evaluation and management of a right posterolateral calf wound. She is accompanied to her appointment today by two family members. She is known to me from the vascular office where I have seen her for suspected venous insufficiency where I ordered venous reflux study which she is not scheduled to complete until 04/19. She reports that shortly after I saw her in the office in December, she developed this R calf wound. She thinks that she may have bumped this area of her leg. At home, she has been applying B&W ointment and other various herb salves without much improvement. She was started on some antibiotic by her PCP which she did not tolerate well, she cannot recall what antibiotic that was but she thinks she still has the bottle at home. She recently was seen for this wound in urgent care 03/20 at which time cultures were obtained. She was empirically started on Amoxicillin 875mg BID x 14 days which she is tolerating so far. The cultures ultimately grew lerma-sensitive E. coli. She notes mild to moderate drainage from the wound. She denies any spreading erythema, foul odor, acutely worsened edema, N/V, F/C. She is not diabetic. She does not smoke. Medical history is otherwise significant for A-fib (chronically anticoagulated with Coumadin), sick sinus syndrome status post pacemaker placement (2008). [facility] Medical History Mobitz type 2 second degree atrioventricular block Sick sinus syndrome due to SA node dysfunction Chronic systolic (congestive) heart failure Paroxysmal atrial fibrillation Sinoatrial node dysfunction FH: sudden cardiac (SCD) Nonischemic cardiomyopathy Elevated troponin Acute calculous cholecystitis Home Medications ?Medication ?Instructions ?Recorded ?Last Taken ?Type calcium 200 mg (as 1 tab PO DAILY 01/23/20 Unknown History citrate)-vitamin D3 6.25 mcg (250 unit) tablet magnesium oxide 200 mg PO DAILY 01/23/20 Unknown History warfarin 2 mg tablet 2 mg PO .COMPLEX #90 tabs 11/04/22 Unknown Rx ramipril 2.5 mg capsule 2.5 mg PO DAILY #90 caps 08/23/23 Unknown Rx warfarin 5 mg tablet 5 mg PO DAILY #90 TABLETS 08/23/23 Unknown Rx amoxicillin 875 mg tablet 875 mg PO Q12H #28 tabs 03/20/24 Unknown Rx Allergy/AdvReac Type Severity Reaction Status Date / Time No Known Allergies Allergy Verified 03/20/24 09:41 Family History Brother Sudden cardiac Brother Myocardial infarction, Onset Age: 40 Heart disease Sister Hypertension Surgical History History of left heart catheterization (05/27/16) Presence of permanent cardiac pacemaker (2008) Social History Smoking Status: Never smoker alcohol intake: never substance use type: does not use caffeine: Yes Type: coffee what type of physical activity do you participate in: bicycling frequency: daily duration: < 15 minutes/day seatbelt use: always do you feel safe at home: Yes Vital Signs Vital Signs Vital Signs: 03/30/24 14:17 Temperature 97 F L Temperature Source Temporal Pulse Rate 71 Respiratory Rate 18 Blood Pressure 138/53 H Blood Pressure Mean 81 Blood Pressure Source Monitor Blood Pressure Position Sitting Blood Pressure Location Right Arm Oxygen Delivery Method Room Air Physical Exam Const alert, oriented x3 and no apparent distress General Appearance: cooperative and comfortable HEENT normocephalic, hearing grossly normal bilaterally, external ears normal and external nose normal Eyes EOMs intact bilaterally General Eye: normal appearance of both eyes Neck General: normal visual inspection and trachea midline Resp normal respiratory effort, normal air movement, no retractions and no use of accessory muscles Effort and Inspection: able to speak in complete sentences Cardio regular rate and regular rhythm Extremity General Extremity: edema bilateral Peripheral Pulses: Yes dorsalis pedis pulses present Skin Wounds: wounds noted Wound Narrative: Right posterolateral calf wound which has significant overlying slough but granular tissue at the base. There is surrounding erythema and warmth. No lymphangitic streaking. No focal edema. No purulent drainage. No foul odor. Neuro oriented x3, CN's II-XII intact bilaterally, moves all extremities, no focal motor deficits and no sensory deficits noted Psych mental status grossly normal Attitude: calm and engaged Activity / Motor Behavior: appropriate eye contact Speech: normal speech Mood & Affect: euthymic mood Judgement: judgement good Debridement Note Debridement Note Wound debrided: Right posterolateral calf wound Laterality: Right Type of Debridement: Excisional debridement Anesthesia Used: 4% Lidocaine Solution and 5% Lidocaine Gel Depth: Down to and including healthy tissue and in the subcutaneous layer Percentage of wound debrided: 100 Instrument Used: 5mm curette Tissue Removed: slough, devitalized tissue Severity: Fat Layer Exposed Amount of bleeding with debridement: Mild Bleeding Controlled with: Pressure Patient tolerated procedure: Patient tolerated procedure well Post-Debridement Measurements and Additional Note: Post-Debridement Measurements/Treatment [facility] Nurse 1 - General Ulcer Assessment Start: 03/30/24 14:12 Freq: Status: Active Protocol: JAIME Activity Type Activity Date Activity User E-sign Co-sign Detail Recorded Client Recorded Date Recorded By Document 03/30/24 14:17 ME [id number] 03/30/24 14:35 ME 03/30/24 14:17 - Today's Visit Information Type of service Initial Visit Arrival Mode Ambulatory Safety Precautions Fall Prevention Vital Signs Temperature (97.8 F-99.1 F) 97 F L Temperature Source Temporal Pulse Rate (60-100) 71 Pulse Location Monitor Respiratory Rate (12-18) 18 Respiratory rate source Observation Oxygen Delivery Method Room Air Blood Pressure (90/60-120/80) 138/53 H Blood Pressure Mean 81 Source Monitor Position Sitting Blood Pressure Location Right Arm History Since Last Visit- (Skip if this is Patient's initial visit) Has dressing in place as prescribed Yes Has compression in place as prescribed Yes Has offloadiing in place as prescribed Yes Experienced any changes in pain level or Yes management Left Footwear Regular Shoe Right Footwear Regular Shoe Pain Scale: 0-10 Numeric Is Patient Pain Free? Yes [facility] Nurse 1 - General Ulcer Measurement Start: 03/30/24 14:12 Freq: Status: Active Protocol: Activity Type Activity Date Activity User E-sign Co-sign Detail Recorded Client Recorded Date Recorded By Document 03/30/24 14:17 ME [id number] 03/30/24 14:35 ME 03/30/24 14:17 Wound Center Nurse 1 #1 Right Lower -Current Size (cm) - Length 2 -Current Size (cm) - Width 3 -Current Size (cm) - Depth 0.4 -Total Square Cm 6 -Date of Last Picture (Recall this 03/30/24 field) -Photo Taken Yes -Epithelialization Small 1-33% -Tunneling No -Undermining/Tunneling No -Circular Undermining No -Exudate Amt Medium -Exudate Type Purulent -Wound Margin Well Defined, Not Attached -Granulation Amt Small (1-33%) -Granulation Quality Pale,[place] -Necrosis Amt Large (67-100%) -Necrotic Tissue Type Adherent Slough -Texture (Alpa-wound Skin Appearance) Assessed -Moisture (Alpa-wound Skin Appearance) Assessed -Color (Alpa-wound Skin Appearance) Assessed -Temperature (Alpa-wound Skin No Abnormality Appearance) (Pt Warm) -Tenderness on Palpation (Alpa-wound No Skin Appearance) -Ulcer Cleansing Soap and Water -Foul Odor after Cleansing No -Anesthetic Used 5% Lidocaine Gel Right Calf (cm) 33 Right Ankle (cm) 21 Left Calf (cm) 34 Left Ankle (cm) 22 WC - Nurse 2 - General Ulcer CM Notes Start: 03/30/24 14:12 Freq: Status: Active Protocol: Activity Type Activity Date Activity User E-sign Co-sign Detail Recorded Client Recorded Date Recorded By Document 03/30/24 14:41 [id number] 03/30/24 14:56 03/30/24 14:41 Wound Center Nurse 2 #1 Right Lower -Time 14:45 -Correct Patient Yes -Correct Side, Site, Position Yes -Correct Procedure Yes -Procedure Performed Yes -Type of Procedure Debridement -Clinical Debridement Subcutaneous -Tissue Removed Subcutaneous -Post Debridement (cm) - Length 2.7 -Post Debridement (cm) - Width 1.1 -Post Debridement (cm) - Depth 0.6 -Total Square (Post) (cm) 2.97 -Area of Debridement (cm) - Length 2.7 -Area of Debridement (cm) - Width 1.1 -Total Square (Area) (cm) 2.97 -Tunneling No -Undermining/Tunneling No -Circular Undermining No -Wound/Ulcer Outcome Not Healed -Ulcer Cleansing Rinsed/ Irrigated with Saline -Foul Odor after Cleansing No -Bioengineered Tissue No -Bleeding Controlled with Pressure -Treatment Response Procedure Tolerated Well -Debridement - Subq, 1st 20sq cm Yes Pain Scale: 0-10 Numeric Is Patient Pain Free? Yes [facility] - Nurse 3 - General Ulcer D/C NN Start: 03/30/24 14:12 Freq: Status: Active Protocol: Activity Type Activity Date Activity User E-sign Co-sign Detail Recorded Client Recorded Date Recorded By Document 03/30/24 15:10 [email or web address] [id number] 03/30/24 15:11 KW 03/30/24 15:10 Wound Care Center Nurse 3 #1 Right Lower -Primary Dressing Applied AMD Dressing 4x4,Mepilex Border -AMD Dressing 4x4 1 -Mepilex Border 1 Right -Tubular Bandage Single Layer -Size of Tubigrip Used Size E -Size E ($) 1 Pain Scale: 0-10 Numeric Is Patient Pain Free? 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 coli which is pansensitive. She has been on the amoxicillin now since 03/20 and still with signs of active infection so I would like to change to a different antibiotic, preferably Bactrim or Cipro. She was recently on a different antibiotic which she did not tolerate, may have been Bactrim but she is not certain. I have asked that she return home and determine which antibiotic she did not tolerate and let me know so that we can determine antibiotic therapy going forward. We discussed signs/symptoms of spreading infection for which she is to monitor and notify us or present to the ER should these arise. For wound care, I advise packing the wound with Aquacel Silver and cover with [place]-SAP dressing. Change twice daily or more often as needed to keep clean and dry. With dressing changes, wash the area with antibacterial soap and water, pat gently to dry well. No submerging the wound in water such as to take a bath, go swimming, etc. Will apply medium strength single layer tubigrip for compression. She will return to see me in 1 week or sooner as needed.
--- NOTE | 2024-04-03 12:14 | WC ---
PHOTO 03/30/24 RIGHT LOWER LEG
== END 2024-03-30 23:59 | disposition home or self-care (01) ==
LOC: WC 13:50
PROVIDERS: PCP Nurse Practitioner Family; Referring Provider Nurse Practitioner Family; Visit Provider Physician Assistant
DX: L97.912 Non-pressure chronic ulcer of unspecified part of right lower leg with fat layer exposed (principal); I50.22 Chronic systolic (congestive) heart failure; I42.8 Other cardiomyopathies; Z79.01 Long term (current) use of anticoagulants; I87.2 Venous insufficiency (chronic) (peripheral); Z95.0 Presence of cardiac pacemaker
CPT/HCPCS: 11042; 99213; G0463

== ENCOUNTER 2024-04-26 13:00 | Outpatient (RCR) | payer MEDICARE, SELFPAY ==
[2024-03-31 00:30] VITALS: BP 138/53; PULSE 71; RESP 18; TEMP 36.1
[2024-04-06 13:44] VITALS: BP 129/45; PULSE 77; RESP 16; TEMP 36.4
--- NOTE | 2024-04-06 14:20 | PCM.WC.PN ---
History of Present Illness Date of Service: 04/06/24 Chief Complaint: R posterolateral calf wound History of Wound: Jhoana Nieves is a 78 y/o female who presents today for evaluation and management of a right posterolateral calf wound. She is accompanied to her appointment today by two family members. She is known to me from the vascular office where I have seen her for suspected venous insufficiency where I ordered venous reflux study which she is not scheduled to complete until 04/19. She reports that shortly after I saw her in the office in December, she developed this R calf wound. She thinks that she may have bumped this area of her leg. At home, she has been applying B&W ointment and other various herb salves without much improvement. She was started on some antibiotic by her PCP which she did not tolerate well, she cannot recall what antibiotic that was but she thinks she still has the bottle at home. She recently was seen for this wound in urgent care 03/20 at which time cultures were obtained. She was empirically started on Amoxicillin 875mg BID x 14 days which she is tolerating so far. The cultures ultimately grew lerma-sensitive E. coli. She notes mild to moderate drainage from the wound. She denies any spreading erythema, foul odor, acutely worsened edema, N/V, F/C. She is not diabetic. She does not smoke. Medical history is otherwise significant for A-fib (chronically anticoagulated with Coumadin), sick sinus syndrome status post pacemaker placement (2008). Subjective Subjective She is overall doing okay this week. She is tolerating the Cipro well, she has 1 day left. She has not noticed any new or worsening pain, drainage, foul odor, redness. She denies any nausea, vomiting, fevers, chills. They have been applying Aquacel more over top of the wound not really packing it. They did not receive the supplies that we ordered last week. Objective Data Objective Data Vital Signs: Vital Signs Temp Pulse Resp BP 97.6 F L 77 16 129/45 H 04/06/24 13:44 04/06/24 13:44 04/06/24 13:44 04/06/24 13:44 Charges/Coding Procedures Integumentary 111xxx-113xx: [id number] Jazzy subq tissue 20 sq cm/< Physical Exam Const alert, oriented x3 and no apparent distress General Appearance: cooperative and comfortable HEENT normocephalic, hearing grossly normal bilaterally, external ears normal and external nose normal Eyes EOMs intact bilaterally General Eye: normal appearance of both eyes Neck General: normal visual inspection and trachea midline Resp normal respiratory effort, normal air movement, no retractions and no use of accessory muscles Effort and Inspection: able to speak in complete sentences Cardio regular rate and regular rhythm Extremity General Extremity: edema bilateral Peripheral Pulses: Yes dorsalis pedis pulses present Skin Wounds: wounds noted Wound Narrative: Right posterolateral calf wound which has significant overlying slough but granular tissue at the base. Slough was less adherent today and she was more tolerant of debridement so I was able to remove more slough which did reveal an area of focally increased depth to 0.8 cm at the proximal aspect of the wound. The rest of the wound depth is 0.5 cm. The wound is 2.5 cm in length and 1.6 cm in width. Mild surrounding erythema remains, no excess warmth. No lymphangitic streaking. No focal edema. No purulent drainage. No foul odor. Neuro oriented x3, CN's II-XII intact bilaterally, moves all extremities, no focal motor deficits and no sensory deficits noted Psych mental status grossly normal Attitude: calm and engaged Activity / Motor Behavior: appropriate eye contact Speech: normal speech Mood & Affect: euthymic mood Judgement: judgement good Debridement Note Debridement Note Wound debrided: Right posterolateral calf wound Laterality: Right Type of Debridement: Excisional debridement Anesthesia Used: 4% Lidocaine Solution and 5% Lidocaine Gel Depth: Down to and including healthy tissue and in the subcutaneous layer Percentage of wound debrided: 100 Instrument Used: 3mm curette Tissue Removed: slough, devitalized tissue Severity: Fat Layer Exposed Amount of bleeding with debridement: Mild Bleeding Controlled with: Pressure Patient tolerated procedure: Patient tolerated procedure well Post-Debridement Measurements and Additional Note: Post-Debridement Measurements/Treatment [facility] - Nurse 1 - General Ulcer Assessment Start: 04/06/24 13:41 Freq: Status: Active Protocol: JAIME Activity Type Activity Date Activity User E-sign Co-sign Detail Recorded Client Recorded Date Recorded By Document 04/06/24 13:44 DL [id number] 04/06/24 13:51 DL 04/06/24 13:44 - Today's Visit Information Type of service Follow-up Visit (Physician/VEHICLE [employer]SEM[employer]Y INSPECTOR ) Arrival Mode Ambulatory Transfer Assistance None Patient Identification Verified (Name & Yes ) Patient Requires Transmission-Based No Precautions Vital Signs Temperature (97.8 F-99.1 F) 97.6 F L Temperature Source Temporal Pulse Rate (60-100) 77 Pulse Location Monitor Respiratory Rate (12-18) 16 Respiratory rate source Observation Blood Pressure (90/60-120/80) 129/45 H Blood Pressure Mean (mm Hg) 73 Source Monitor History Since Last Visit- (Skip if this is Patient's initial visit) Have you changed medications since your No last visit? Any new allergies or adverse reactions No Had a fall/change in ADL's that may No increase risk of falls Signs or symptoms of abuse and/or No neglect since last visit Have you been in the hospital since your No last visit? Has dressing in place as prescribed Yes Has compression in place as prescribed Yes Has offloadiing in place as prescribed N/A Experienced any changes in pain level or No management Pain Scale: 0-10 Numeric Is Patient Pain Free? Yes WC - Nurse 1 - General Ulcer Measurement Start: 04/06/24 13:41 Freq: Status: Active Protocol: Activity Type Activity Date Activity User E-sign Co-sign Detail Recorded Client Recorded Date Recorded By Document 04/06/24 13:44 DL [id number] 04/06/24 13:51 DL 04/06/24 13:44 Wound Center Nurse 1 #1 Right Lower -Current Size (cm) - Length 2.6 -Current Size (cm) - Width 1.2 -Current Size (cm) - Depth 0.4 -Total Square Cm 3.12 -Photo Taken Yes -Exudate Amt Medium -Exudate Type Serous -Wound Margin Distinct, Outline Attached -Granulation Amt Medium (34-66%) -Granulation Quality Red -Necrosis Amt Medium (34-66%) -Necrotic Tissue Type Adherent Slough -Structure Exposed N/A -Texture (Alpa-wound Skin Appearance) Localized Edema ,Scarring -Moisture (Alpa-wound Skin Appearance) No Abnormality -Color (Alpa-wound Skin Appearance) Erythema -Temperature (Alpa-wound Skin No Abnormality Appearance) (Pt Warm) -Ulcer Cleansing Soap and Water -Foul Odor after Cleansing No -Anesthetic Used 5% Lidocaine Gel Right Calf (cm) 34.3 Right Ankle (cm) 20.8 WC - Nurse 2 - General Ulcer CM Notes Start: 04/06/24 13:41 Freq: Status: Active Protocol: Activity Type Activity Date Activity User E-sign Co-sign Detail Recorded Client Recorded Date Recorded By Document 04/06/24 14:06 [id number] 04/06/24 14:13 04/06/24 14:06 Wound Center Nurse 2 #1 Right Lower -Time 14:06 -Correct Patient Yes -Correct Side, Site, Position Yes -Correct Procedure Yes -Procedure Performed Yes -Type of Procedure Debridement -Clinical Debridement Subcutaneous -Tissue Removed Subcutaneous -Post Debridement (cm) - Length 2.5 -Post Debridement (cm) - Width 1.6 -Post Debridement (cm) - Depth 0.8 -Total Square (Post) (cm) 4.00 -Area of Debridement (cm) - Length 2.5 -Area of Debridement (cm) - Width 1.6 -Total Square (Area) (cm) 4.00 -Tunneling No -Undermining/Tunneling No -Circular Undermining No -Wound/Ulcer Outcome Not Healed -Ulcer Cleansing Rinsed/ Irrigated with Saline -Foul Odor after Cleansing No -Bioengineered Tissue No -Bleeding Controlled with Pressure -Treatment Response Procedure Tolerated Well -Debridement - Subq, 1st 20sq cm Yes Pain Scale: 0-10 Numeric Is Patient Pain Free? 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 Continue to monitor for signs of worsening infection and she is advised to contact us or proceed to the ER if these arise. For wound care, will continue with Aquacel Silver and cover with [place]-SAP dressing. I advised to ensure they are packing the Aquacel silver into the wound. Change twice daily or more often as needed to keep clean and dry. With dressing changes, wash the area with antibacterial soap and water, pat gently to dry well. No submerging the wound in water such as to take a bath, go swimming, etc. PATRICIA PALM will follow-up on why her wound care supplies were not delivered. Will apply medium strength single layer tubigrip for compression. She will return to see me in 1 week or sooner as needed.
--- NOTE | 2024-04-10 09:21 | WC ---
PHOTO 04/06/24 RIGHT LOWER LEG
[2024-04-13 13:43] VITALS: BP 127/79; PULSE 81; RESP 18; TEMP 36.1
--- NOTE | 2024-04-13 15:16 | PCM.WC.PN ---
History of Present Illness Date of Service: 04/13/24 Chief Complaint: R posterolateral calf wound History of Wound: Jhoana Nieves is a 78 y/o female who presents today for evaluation and management of a right posterolateral calf wound. She is accompanied to her appointment today by two family members. She is known to me from the vascular office where I have seen her for suspected venous insufficiency where I ordered venous reflux study which she is not scheduled to complete until 04/19. She reports that shortly after I saw her in the office in December, she developed this R calf wound. She thinks that she may have bumped this area of her leg. At home, she has been applying B&W ointment and other various herb salves without much improvement. She was started on some antibiotic by her PCP which she did not tolerate well, she cannot recall what antibiotic that was but she thinks she still has the bottle at home. She recently was seen for this wound in urgent care 03/20 at which time cultures were obtained. She was empirically started on Amoxicillin 875mg BID x 14 days which she is tolerating so far. The cultures ultimately grew lerma-sensitive E. coli. She notes mild to moderate drainage from the wound. She denies any spreading erythema, foul odor, acutely worsened edema, N/V, F/C. She is not diabetic. She does not smoke. Medical history is otherwise significant for A-fib (chronically anticoagulated with Coumadin), sick sinus syndrome status post pacemaker placement (2008). Subjective Subjective Jhoana is doing well overall this week. She is nearly completed with a 14 day course of cipro. They have been making an effort to pack the Aquacel AG into the wound better this past week. She unfortunately still has not received the supplies that were ordered. No new redness, excess drainage, pain, fevers, or chills. She has been tolerating the Tubigrips so far. She has the venous reflux study next Wednesday morning and due to transportation burden would prefer to skip wound care appointment. Objective Data Objective Data Vital Signs: Vital Signs Temp Pulse Resp BP O2 Del Method 97.0 F L 81 18 127/79 H Room Air 04/13/24 13:43 04/13/24 13:43 04/13/24 13:43 04/13/24 13:43 04/13/24 13:43 Oxygen Delivery Method Room Air Charges/Coding Procedures Integumentary 111xxx-113xx: 31892 Jazzy subq tissue 20 sq cm/< Physical Exam Const alert, oriented x3 and no apparent distress General Appearance: cooperative and comfortable HEENT normocephalic, hearing grossly normal bilaterally, external ears normal and external nose normal Eyes EOMs intact bilaterally General Eye: normal appearance of both eyes Neck General: normal visual inspection and trachea midline Resp normal respiratory effort, normal air movement, no retractions and no use of accessory muscles Effort and Inspection: able to speak in complete sentences Cardio regular rate and regular rhythm Extremity General Extremity: edema bilateral Peripheral Pulses: Yes dorsalis pedis pulses present Skin Wounds: wounds noted Wound Narrative: Right posterolateral calf wound which has significant slough but granular tissue at the base. Greatest area of depth is at the proximal portion of the wound to 0.5 cm today. The distal portion of the wound has a depth of 0.3 cm today. All measures are improved today. No new erythema, excess warmth, focal edema, purulent drainage. Neuro oriented x3, CN's II-XII intact bilaterally, moves all extremities, no focal motor deficits and no sensory deficits noted Psych mental status grossly normal Attitude: calm and engaged Activity / Motor Behavior: appropriate eye contact Speech: normal speech Mood & Affect: euthymic mood Judgement: judgement good Debridement Note Debridement Note Wound debrided: Right posterolateral calf wound Laterality: Right Type of Debridement: Excisional debridement Anesthesia Used: 4% Lidocaine Solution and 5% Lidocaine Gel Depth: Down to and including healthy tissue and in the subcutaneous layer Percentage of wound debrided: 100 Instrument Used: 3mm curette Tissue Removed: slough, devitalized tissue Severity: Fat Layer Exposed Amount of bleeding with debridement: Mild Bleeding Controlled with: Pressure Patient tolerated procedure: Patient tolerated procedure well Post-Debridement Measurements and Additional Note: Post-Debridement Measurements/Treatment CELY - Nurse 1 - General Ulcer Assessment Start: 04/06/24 13:41 Freq: Status: Active Protocol: JAIME Activity Type Activity Date Activity User E-sign Co-sign Detail Recorded Client Recorded Date Recorded By Document 04/06/24 13:44 DL [id number] 04/06/24 13:51 DL Document 04/13/24 13:43 KW [id number] 04/13/24 13:50 KW 04/06/24 04/13/24 13:44 13:43 - Today's Visit Information Type of service Follow-up Visit Follow-up Visit (Physician/DIRECTOR WATER AND WASTE SERVICES (Physician/DIRECTOR WATER [employer] WASTE SERVICES ) ) Arrival Mode Ambulatory Ambulatory Transfer Assistance None Accompanied by daughter Patient Identification Verified (Name & Yes Yes ) Patient Requires Transmission-Based No Precautions Vital Signs Temperature (97.8 F-99.1 F) 97.6 F L 97.0 F L Temperature Source Temporal Temporal Pulse Rate (60-100) 77 81 Pulse Location Monitor Monitor Respiratory Rate (12-18) 16 18 Respiratory rate source Observation Observation Oxygen Delivery Method Room Air Blood Pressure (90/60-120/80) 129/45 H 127/79 H Blood Pressure Mean (mm Hg) 73 95 Source Monitor Monitor Position Semi-Fowlers Blood Pressure Location Right Arm History Since Last Visit- (Skip if this is Patient's initial visit) Have you changed medications since your No No last visit? Any new allergies or adverse reactions No No Had a fall/change in ADL's that may No No increase risk of falls Signs or symptoms of abuse and/or No No neglect since last visit Have you been in the hospital since your No No last visit? Has dressing in place as prescribed Yes Yes Has compression in place as prescribed Yes Yes Has offloadiing in place as prescribed N/A N/A Experienced any changes in pain level or No No management Left Footwear Regular Shoe Right Footwear Regular Shoe Pain Scale: 0-10 Numeric Is Patient Pain Free? Yes Yes - Nurse 1 - General Ulcer Measurement Start: 04/06/24 13:41 Freq: Status: Active Protocol: Activity Type Activity Date Activity User E-sign Co-sign Detail Recorded Client Recorded Date Recorded By Document 04/06/24 13:44 DL [id number] 04/06/24 13:51 DL Document 04/13/24 13:43 KW [id number] 04/13/24 13:50 KW 04/06/24 04/13/24 13:44 13:43 Wound Center Nurse 1 #1 Right Lower -Current Size (cm) - Length 2.6 2.4 -Current Size (cm) - Width 1.2 1 -Current Size (cm) - Depth 0.4 0.3 -Total Square Cm 3.12 2.4 -Photo Taken Yes -Exudate Amt Medium Small -Exudate Type Serous Serosanguineous -Wound Margin Distinct, Thickened & Outline Rolled Under Attached -Granulation Amt Medium (34-66%) Medium (34-66%) -Granulation Quality Red Red -Necrosis Amt Medium (34-66%) Medium (34-66%) -Necrotic Tissue Type Adherent Slough Adherent Slough -Structure Exposed N/A -Texture (Alpa-wound Skin Appearance) Localized Edema Assessed ,Scarring -Moisture (Alpa-wound Skin Appearance) No Abnormality Assessed -Color (Alpa-wound Skin Appearance) Erythema Assessed -Temperature (Alpa-wound Skin No Abnormality No Abnormality Appearance) (Pt Warm) (Pt Warm) -Tenderness on Palpation (Alpa-wound No Skin Appearance) -Ulcer Cleansing Soap and Water Rinsed/ Irrigated with Saline -Foul Odor after Cleansing No No -Anesthetic Used 5% Lidocaine 5% Lidocaine Gel Gel Right Calf (cm) 34.3 33.5 Right Ankle (cm) 20.8 20.6 WC - Nurse 2 - General Ulcer CM Notes Start: 04/06/24 13:41 Freq: Status: Active Protocol: Activity Type Activity Date Activity User E-sign Co-sign Detail Recorded Client Recorded Date Recorded By Document 04/06/24 14:06 [id number] 04/06/24 14:13 Document 04/13/24 13:59 [id number] 04/13/24 14:03 04/06/24 04/13/24 14:06 13:59 Wound Center Nurse 2 #1 Right Lower -Time 14:06 13:59 -Correct Patient Yes Yes -Correct Side, Site, Position Yes Yes -Correct Procedure Yes Yes -Procedure Performed Yes Yes -Type of Procedure Debridement Debridement -Clinical Debridement Subcutaneous Subcutaneous -Tissue Removed Subcutaneous Subcutaneous -Post Debridement (cm) - Length 2.5 2.4 -Post Debridement (cm) - Width 1.6 1.5 -Post Debridement (cm) - Depth 0.8 0.4 -Total Square (Post) (cm) 4.00 3.60 -Area of Debridement (cm) - Length 2.5 -Area of Debridement (cm) - Width 1.6 -Total Square (Area) (cm) 4.00 -Tunneling No No -Undermining/Tunneling No No -Circular Undermining No No -Wound/Ulcer Outcome Not Healed Not Healed -Ulcer Cleansing Rinsed/ Rinsed/ Irrigated with Irrigated with Saline Saline -Foul Odor after Cleansing No No -Bioengineered Tissue No No -Bleeding Controlled with Pressure Pressure -Treatment Response Procedure Procedure Tolerated Well Tolerated Well -Debridement - Subq, 1st 20sq cm Yes Yes Pain Scale: 0-10 Numeric Is Patient Pain Free? Yes Yes - Nurse 3 - General Ulcer D/C NN Start: 04/06/24 13:41 Freq: Status: Active Protocol: Activity Type Activity Date Activity User E-sign Co-sign Detail Recorded Client Recorded Date Recorded By Document 04/06/24 14:40 DL [id number] 04/06/24 14:41 DL Document 04/13/24 14:12 KW [id number] 04/13/24 14:13 KW 04/06/24 04/13/24 14:40 14:12 Wound Care Center Nurse 3 #1 Right Lower -Ulcer Cleansing Rinsed/ Irrigated with Saline -Foul Odor after Cleansing No -Primary Dressing Applied Aquacel AG 4x4, Aquacel AG 4x4, Mepilex Border Mepilex Border -Aquacel AG 4x4 1 2 -Mepilex Border 2 1 Right -Tubular Bandage Single Layer Single Layer -Size of Tubigrip Used Size D Size E -Size D ($) 2 -Size E ($) 2 Treatment Response Procedure Tolerated Well Pain Scale: 0-10 Numeric Is Patient Pain Free? 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 Monitor for signs of recurrent infection. For wound care, will continue with Aquacel Silver and cover with [place]-SAP dressing. Change twice daily or more often as needed to keep clean and dry. With dressing changes, wash the area with antibacterial soap and water, pat gently to dry well. No submerging the wound in water such as to take a bath, go swimming, etc. It does seem she has been doing better packing the Aquacel to the base of the wound, encouraged to keep up with this. PATRICIA PALM will follow-up on why her wound care supplies were not delivered. Will apply medium strength single layer tubigrip for compression. Per her preference, will skip next week. The following week is [place] so wound center will be closed that . She does build up significant slough so really would not want her going out 3 weeks. Will see if she can have a courtesy visit with another provider in 2 weeks (week of [place]) and return to see me in 3 weeks. She is encouraged to call or return sooner with any concerns.
[2024-04-26 12:59] VITALS: BP 142/65; PULSE 74; RESP 18; TEMP 36.3
--- NOTE | 2024-04-26 13:50 | PCM.WC.PN ---
History of Present Illness Date of Service: 04/26/24 Chief Complaint: R posterolateral calf wound History of Wound: Jhoana Nieves is a 78 y/o female who presents today for evaluation and management of a right posterolateral calf wound. She is accompanied to her appointment today by two family members. She is known to me from the vascular office where I have seen her for suspected venous insufficiency where I ordered venous reflux study which she is not scheduled to complete until 04/19. She reports that shortly after I saw her in the office in December, she developed this R calf wound. She thinks that she may have bumped this area of her leg. At home, she has been applying B&W ointment and other various herb salves without much improvement. She was started on some antibiotic by her PCP which she did not tolerate well, she cannot recall what antibiotic that was but she thinks she still has the bottle at home. She recently was seen for this wound in urgent care 03/20 at which time cultures were obtained. She was empirically started on Amoxicillin 875mg BID x 14 days which she is tolerating so far. The cultures ultimately grew lerma-sensitive E. coli. She notes mild to moderate drainage from the wound. She denies any spreading erythema, foul odor, acutely worsened edema, N/V, F/C. She is not diabetic. She does not smoke. Medical history is otherwise significant for A-fib (chronically anticoagulated with Coumadin), sick sinus syndrome status post pacemaker placement (2008). Progress of Wound: Courtesy visit for Zarina. Patient comes in with a rash on her extremities that started one week ago. She had started taking a natural vitamin and stopped taking that on Wednesday. She has continued to have a pink, flat, occasionally itchy rash on her her extremities. The only new item that she is coming in contact is an all natural protein powder that her son sells. Instructed her to stop the protein powder to see if this is the cause of her rash. She is also concerned that she may have an infection because she is red around the ulcer. The redness is in the shape of a square (most likely caused from her outer dressing). She also admits to not only using the Aquacel-Ag but also a natural silver spray and coconut oil in the ulcer before putting the aquacel-ag in it. Objective Data Objective Data Vital Signs: Vital Signs Temp Pulse Resp BP O2 Del Method 97.3 F L 74 18 142/65 H Room Air 04/26/24 12:59 04/26/24 12:59 04/26/24 12:59 04/26/24 12:59 04/13/24 13:43 Oxygen Delivery Method Room Air Charges/Coding Procedures Integumentary 111xxx-113xx: 42700 Jazzy subq tissue 20 sq cm/< Debridement Note Debridement Note Wound debrided: Right posterolateral calf wound Laterality: Right Type of Debridement: Excisional debridement Anesthesia Used: 4% Lidocaine Solution and 5% Lidocaine Gel Depth: Down to and including healthy tissue and in the subcutaneous layer Percentage of wound debrided: 100 Instrument Used: 3mm curette Tissue Removed: slough, devitalized tissue Severity: Fat Layer Exposed Amount of bleeding with debridement: Mild Bleeding Controlled with: Pressure Patient tolerated procedure: Patient tolerated procedure well Post-Debridement Measurements and Additional Note: Post-Debridement Measurements/Treatment - Nurse 1 - General Ulcer Assessment Start: 04/06/24 13:41 Freq: Status: Active Protocol: JAIME Activity Type Activity Date Activity User E-sign Co-sign Detail Recorded Client Recorded Date Recorded By Document 04/06/24 13:44 DL [id number] 04/06/24 13:51 DL Document 04/13/24 13:43 KW [id number] 04/13/24 13:50 KW Document 04/26/24 12:59 DL [id number] 04/26/24 13:09 DL 04/06/24 04/13/24 04/26/24 13:44 13:43 12:59 - Today's Visit Information Type of service Follow-up Visit Follow-up Visit Follow-up Visit (Physician/LEARNING AND DEVELOPMENT COORDINATOR (Physician/LEARNING AND DEVELOPMENT COORDINATOR (Physician/LEARNING AND DEVELOPMENT COORDINATOR ) ) ) Arrival Mode Ambulatory Ambulatory Ambulatory Transfer Assistance None None Accompanied by daughter Patient Identification Verified (Name & Yes Yes Yes ) Patient Requires Transmission-Based No No Precautions Vital Signs Temperature (97.8 F-99.1 F) 97.6 F L 97.0 F L 97.3 F L Temperature Source Temporal Temporal Temporal Pulse Rate (60-100) 77 81 74 Pulse Location Monitor Monitor Monitor Respiratory Rate (12-18) 16 18 18 Respiratory rate source Observation Observation Observation Oxygen Delivery Method Room Air Blood Pressure (90/60-120/80) 129/45 H 127/79 H 142/65 H Blood Pressure Mean (mm Hg) 73 95 90 Source Monitor Monitor Monitor Position Semi-Fowlers Blood Pressure Location Right Arm History Since Last Visit- (Skip if this is Patient's initial visit) Have you changed medications since your No No No last visit? Any new allergies or adverse reactions No No No Had a fall/change in ADL's that may No No No increase risk of falls Signs or symptoms of abuse and/or No No No neglect since last visit Have you been in the hospital since your No No No last visit? Has dressing in place as prescribed Yes Yes Yes Has compression in place as prescribed Yes Yes Yes Has offloadiing in place as prescribed N/A N/A N/A Experienced any changes in pain level or No No No management Left Footwear Regular Shoe Right Footwear Regular Shoe Pain Scale: 0-10 Numeric Is Patient Pain Free? Yes Yes Yes WC - Nurse 1 - General Ulcer Measurement Start: 04/06/24 13:41 Freq: Status: Active Protocol: Activity Type Activity Date Activity User E-sign Co-sign Detail Recorded Client Recorded Date Recorded By Document 04/06/24 13:44 DL [id number] 04/06/24 13:51 DL Document 04/13/24 13:43 KW [id number] 04/13/24 13:50 KW Document 04/26/24 12:59 DL [id number] 04/26/24 13:09 DL 04/06/24 04/13/24 04/26/24 13:44 13:43 12:59 Wound Center Nurse 1 #1 Right Lower -Current Size (cm) - Length 2.6 2.4 2.2 -Current Size (cm) - Width 1.2 1 0.8 -Current Size (cm) - Depth 0.4 0.3 0.2 -Total Square Cm 3.12 2.4 1.76 -Photo Taken Yes Yes -Exudate Amt Medium Small Medium -Exudate Type Serous Serosanguineous Serosanguineous -Wound Margin Distinct, Thickened & Distinct, Outline Rolled Under Outline Attached Attached -Granulation Amt Medium (34-66%) Medium (34-66%) None Present (0 %) -Granulation Quality Red Red -Necrosis Amt Medium (34-66%) Medium (34-66%) Large (67-100%) -Necrotic Tissue Type Adherent Slough Adherent Slough Adherent Slough -Structure Exposed N/A N/A -Texture (Alpa-wound Skin Appearance) Localized Edema Assessed Localized Edema ,Scarring ,Rash -Moisture (Alpa-wound Skin Appearance) No Abnormality Assessed No Abnormality -Color (Alpa-wound Skin Appearance) Erythema Assessed Erythema -Temperature (Alpa-wound Skin No Abnormality No Abnormality No Abnormality Appearance) (Pt Warm) (Pt Warm) (Pt Warm) -Tenderness on Palpation (Alpa-wound No Skin Appearance) -Ulcer Cleansing Soap and Water Rinsed/ Soap and Water Irrigated with Saline -Foul Odor after Cleansing No No No -Anesthetic Used 5% Lidocaine 5% Lidocaine 5% Lidocaine Gel Gel Gel Right Calf (cm) 34.3 33.5 34 Right Ankle (cm) 20.8 20.6 20.5 WC - Nurse 2 - General Ulcer CM Notes Start: 04/06/24 13:41 Freq: Status: Active Protocol: Activity Type Activity Date Activity User E-sign Co-sign Detail Recorded Client Recorded Date Recorded By Document 04/06/24 14:06 [id number] 04/06/24 14:13 Document 04/13/24 13:59 [id number] 04/13/24 14:03 Document 04/26/24 13:25 [id number] 04/26/24 13:46 CP 04/06/24 04/13/24 04/26/24 14:06 13:59 13:25 Wound Center Nurse 2 #1 Right Lower -Time 14:06 13:59 13:27 -Correct Patient Yes Yes Yes -Correct Side, Site, Position Yes Yes Yes -Correct Procedure Yes Yes Yes -Procedure Performed Yes Yes Yes -Type of Procedure Debridement Debridement Debridement -Clinical Debridement Subcutaneous Subcutaneous Subcutaneous -Tissue Removed Subcutaneous Subcutaneous Subcutaneous -Post Debridement (cm) - Length 2.5 2.4 2.2 -Post Debridement (cm) - Width 1.6 1.5 0.3 -Post Debridement (cm) - Depth 0.8 0.4 0.3 -Total Square (Post) (cm) 4.00 3.60 0.66 -Area of Debridement (cm) - Length 2.5 2.2 -Area of Debridement (cm) - Width 1.6 0.3 -Total Square (Area) (cm) 4.00 0.66 -Tunneling No No Yes -Tunneling Position (O'clock) 1 -Tunneling Distance (cm) 0.3 -Undermining/Tunneling No No -Circular Undermining No No -Wound/Ulcer Outcome Not Healed Not Healed Not Healed -Ulcer Cleansing Rinsed/ Rinsed/ Irrigated with Irrigated with Saline Saline -Foul Odor after Cleansing No No No -Bioengineered Tissue No No -Topical Lidocaine (%) 4 -Bleeding Controlled with Pressure Pressure Pressure -Treatment Response Procedure Procedure Procedure Tolerated Well Tolerated Well Tolerated Well -Debridement - Subq, 1st 20sq cm Yes Yes Yes Pain Scale: 0-10 Numeric Is Patient Pain Free? Yes Yes Yes - Nurse 3 - General Ulcer D/C NN Start: 04/06/24 13:41 Freq: Status: Active Protocol: Activity Type Activity Date Activity User E-sign Co-sign Detail Recorded Client Recorded Date Recorded By Document 04/06/24 14:40 DL [id number] 04/06/24 14:41 DL Document 04/13/24 14:12 KW [id number] 04/13/24 14:13 04/06/24 04/13/24 14:40 14:12 Wound Care Center Nurse 3 #1 Right Lower -Ulcer Cleansing Rinsed/ Irrigated with Saline -Foul Odor after Cleansing No -Primary Dressing Applied Aquacel AG 4x4, Aquacel AG 4x4, Mepilex Border Mepilex Border -Aquacel AG 4x4 1 2 -Mepilex Border 2 1 Right -Tubular Bandage Single Layer Single Layer -Size of Tubigrip Used Size D Size E -Size D ($) 2 -Size E ($) 2 Treatment Response Procedure Tolerated Well Pain Scale: 0-10 Numeric Is Patient Pain Free? 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 She completed Cipro. There are no clinical signs of infection (the erythema surrounding her wound looks like contact dermatitis from the outer dressing, not infection). For her rash, instructed to stop protein powder and continue NOT to take the vitamin. Trying to figure out the cause of the rash (denies any new soaps, detergents, lotions, cleaning products). Discussed worrisome signs such as difficulty breathing, difficulty swallowing, needing to clear throat frequently, tongue swelling, then they should call 911 to seek emergent health care. They do have a phone. Verbalized understanding. For wound care, will continue with Aquacel Silver and cover with ABD dressing (previous outer dressing causing irritation). Change daily or more often as needed to keep clean and dry. With dressing changes, wash the area with antibacterial soap and water, pat gently to dry well. No submerging the wound in water such as to take a bath, go swimming, etc. Instructed to not place any other products in the ulcer. Will apply medium strength single layer tubigrip for compression. She is scheduled for her vascular studies next Wednesday. Follow up with Zarina next week.
== END 2024-04-29 23:59 | disposition home or self-care (01) ==
LOC: WC 13:00
PROVIDERS: PCP Nurse Practitioner Family; Referring Provider Nurse Practitioner Family; Visit Provider Physician Assistant
DX: L97.912 Non-pressure chronic ulcer of unspecified part of right lower leg with fat layer exposed (principal); R21 Rash and other nonspecific skin eruption; I87.2 Venous insufficiency (chronic) (peripheral); Z79.01 Long term (current) use of anticoagulants; Z95.0 Presence of cardiac pacemaker
CPT/HCPCS: 11042

== ENCOUNTER 2024-04-26 14:16 | Outpatient (RCR) | payer MEDICARE, SELFPAY ==
[2024-03-30 20:42] VITALS: BMI 23.6
[2024-04-06 16:47] LABS: International Normalized Ratio 1.9; Prothrombin Time (Protime)PT. 21.7 SECONDS (11.7-14.9)
[2024-04-26 15:41] LABS: International Normalized Ratio 2.3; Prothrombin Time (Protime)PT. 24.9 SECONDS (11.7-14.9)
== END 2024-04-29 18:00 | disposition home or self-care (01) ==
LOC: LAB 14:16
PROVIDERS: Family Provider Family Medicine; PCP Nurse Practitioner Family; Referring Provider Internal Medicine Cardiovascular Disease; Visit Provider Internal Medicine Cardiovascular Disease
DX: I48.0 Paroxysmal atrial fibrillation (principal); Z79.01 Long term (current) use of anticoagulants
CPT/HCPCS: 36415; 85610

== ENCOUNTER → 2024-05-02 | Outpatient (CLI) | payer MEDICARE, SELFPAY ==
--- NOTE | 2024-05-02 08:30 | CDU_ITS ---
Reason For Study: Carotid bruit Rt. Velocities/BP Lt. Velocities/BP Prox CCA 65.5/12.6 cm/sec. Prox CCA 68.5/21.2 cm/sec. Mid CCA 57.9/15.4 cm/sec. Mid CCA 65.2/13.5 cm/sec. Dist CCA 68.3/12.6 cm/sec. Dist CCA 56.4/16.8 cm/sec. Prox ICA 62.6/20.1 cm/sec. Prox ICA 82.8/15.7 cm/sec. Mid ICA 84.4/24.8 cm/sec. Mid ICA 68.5/21.2 cm/sec. Dist ICA 98.1/22.3 cm/sec. Dist ICA 88.9/23.7 cm/sec. Rt. ICA/CCA = 1.69. Lt. ICA/CCA = 1.36. Prox ECA 65.5/9.7 cm/sec. Prox ECA 75.8/13.7 cm/sec. Rt. Vert. 68.5/13.5 cm/sec. Lt. Vert. 41.3/9.9 cm/sec. Right Extracranial There is homogeneous, smooth atherosclerotic plaque noted in the right common carotid artery. There is heterogeneous, irregular atherosclerotic plaque noted in the right internal carotid artery. There is heterogeneous, irregular atherosclerotic plaque noted in the right external carotid artery. Antegrade flow is noted in the right vertebral artery. Left Extracranial There is intimal thickening but no significant atherosclerotic plaque noted in the left common carotid artery. There is heterogeneous, irregular atherosclerotic plaque noted in the left internal carotid artery. There is homogeneous, smooth atherosclerotic plaque noted in the left external carotid artery. Antegrade flow is noted in the left vertebral artery. Procedure Carotid Duplex 40057. This is a Carotid Duplex examination using B-mode, color flow and specral Doppler. Exam performed in department. VL/Carotid Duplex Ultrasound Interpretation Summary Mild (<50%) stenosis right extracranial internal carotid. Mild (<50%) stenosis left extracranial internal carotid. Patent and antegrade vertebrals bilaterally. Ordering Physician: Zarina Fish Referring Physician: Lynette Burton Performed By: Nydia Casas RVT
--- NOTE | 2024-05-02 08:30 | VDLE_ITS ---
Reason For Study: Bilateral leg pain RIGHT LEFT CFV is compressible, spontaneous, phasic, CFV is compressible, spontaneous, phasic, competent and demonstrates normal competent, and demonstrates normal augmentation. augmentation. FV is compressible, spontaneous, phasic, FV is compressible, spontaneous, phasic, competent and demonstrates normal competent and demonstrates normal augmentation. augmentation. POP V is compressible, spontaneous, phasic, POP V is compressible, spontaneous, phasic, competent and demonstrates normal competent and demonstrates normal augmentation. augmentation. T/P Trunk is compressible. T/P Trunk is compressible. PTV is compressible. PTV is compressible. RT PerV is compressible. LT PerV is compressible. SFJ is competent and measures 0.57 cm. SFJ is competent and measures 0.50 cm. GSV proximal thigh measures 0.33 x 0.32 cm. GSV proximal thigh measures 0.26 x 0.27 cm. GSV at knee measures 0.23 x 0.24 cm. GSV above knee is competent. GSV is competent throughout. GSV at knee measures 0.22 x 0.24 cm. ASV mid calf is INCOMPETENT for greater than GSV below knee is INCOMPETENT for greater 0.5 seconds and measures 0.20 x 0.21 cm. than 0.5 seconds. SSV at junction is INCOMPETENT for greater SSV at junction is INCOMPETENT for greater than 0.5 seconds and measures 0.29 cm. than 0.5 seconds and measures 0.31 cm. SSV is partially compressible with bright SSV is partially compressible with bright intraluminal echeos noted. intraluminal echeos noted. Procedure This is a venous duplex using B-mode, color flow and spectral Doppler. Exam performed in department. Patient was scanned in reverse Trendelenburg position during reflux assessment. VL/Venous Duplex US - Vishnu Extrem Interpretation Summary Deep veins of the bilateral lower extremities are patent and compressible segme ntally. There is no evidence of bilateral lower extremity deep vein thrombosis. The bilateral great saphenous veins appear patent and compressible segmentally. Positive for reflux in the right accessory saphenous vein in the thigh, small s aphenous vein. Chronic superficial vein thrombus noted. Positive for reflux in the left great saphenous vein below the knee, small saph enous vein. Chronic superficial vein thrombus noted. Ordering Physician: Zarina Fish Referring Physician: Lynette Burton Performed By: Nydia Casas RVT
== END | disposition home or self-care (01) ==
LOC: CVS 08:30
PROVIDERS: PCP Nurse Practitioner Family; Referring Provider Surgery Trauma Surgery; Visit Provider Surgery Trauma Surgery
DX: M79.604 Pain in right leg (principal); M79.605 Pain in left leg; M79.3 Panniculitis, unspecified; R09.89 Other specified symptoms and signs involving the circulatory and respiratory systems
CPT/HCPCS: 93880; 93970

== ENCOUNTER 2024-05-18 12:45 | Outpatient (RCR) | payer MEDICARE, SELFPAY ==
[2024-04-29 23:14] VITALS: BMI 23.6
[2024-05-18 13:36] LABS: International Normalized Ratio 1.7; Prothrombin Time (Protime)PT. 19.9 SECONDS (11.7-14.9)
== END 2024-05-18 18:00 | disposition home or self-care (01) ==
LOC: LAB 12:45
PROVIDERS: Family Provider Family Medicine; PCP Nurse Practitioner Family; Referring Provider Internal Medicine Cardiovascular Disease; Visit Provider Internal Medicine Cardiovascular Disease
DX: I48.0 Paroxysmal atrial fibrillation (principal); Z79.01 Long term (current) use of anticoagulants
CPT/HCPCS: 36415; 85610

== ENCOUNTER 2024-05-18 13:00 | Outpatient (RCR) | payer MEDICARE, SELFPAY ==
[2024-04-30 00:21] VITALS: BP 138/53; PULSE 71; RESP 18; TEMP 36.1
[2024-05-04 13:03] VITALS: BP 136/65; PULSE 69; RESP 18; TEMP 36.1
--- NOTE | 2024-05-05 07:15 | PN.PCM_ITS ---
History of Present Illness Date of Service: 05/04/24 Chief Complaint: R posterolateral calf wound History of Wound: Jhoana Nieves is a 78 y/o female who presents today for evaluation and management of a right posterolateral calf wound. She is accompanied to her appointment today by two family members. She is known to me from the vascular office where I have seen her for suspected venous insufficiency where I ordered venous reflux study which she is not scheduled to complete until 04/19. She reports that shortly after I saw her in the office in December, she developed this R calf wound. She thinks that she may have bumped this area of her leg. At home, she has been applying B&W ointment and other various herb salves without much improvement. She was started on some antibiotic by her PCP which she did not tolerate well, she cannot recall what antibiotic that was but she thinks she still has the bottle at home. She recently was seen for this wound in urgent care 03/20 at which time cultures were obtained. She was empirically started on Amoxicillin 875mg BID x 14 days which she is tolerating so far. The cultures ultimately grew lerma-sensitive E. coli. She notes mild to moderate drainage from the wound. She denies any spreading erythema, foul odor, acutely worsened edema, N/V, F/C. She is not diabetic. She does not smoke. Medical history is otherwise significant for A-fib (chronically anticoagulated with Coumadin), sick sinus syndrome status post pacemaker placement (2008). Subjective Subjective She was seen by Juanita last week for a courtesy visit. At that time, she had a rash. This has fortunately resolved this week, she thinks it was a new laundry soap she had started using. Her son reports that when he was changing the dressings earlier in the week, he was able to express some purulent material. He has not seen any of this drainage in the last couple days. There has not been any significant increased in redness, pain, or odor. She has not had any N/V, F/C. She did complete a 2 week course of cipro last week. She did also complete carotid duplex and venous reflux study. Objective Data Objective Data Vital Signs: Vital Signs Temp Pulse Resp BP O2 Del Method 97.0 F L 69 18 136/65 H Room Air 05/04/24 13:03 05/04/24 13:03 05/04/24 13:03 05/04/24 13:03 05/04/24 13:03 Oxygen Delivery Method Room Air Charges/Coding Procedures Integumentary 111xxx-113xx: [id number] Jazzy subq tissue 20 sq cm/< Physical Exam Const alert, oriented x3 and no apparent distress General Appearance: cooperative and comfortable HEENT normocephalic, hearing grossly normal bilaterally, external ears normal and external nose normal Eyes EOMs intact bilaterally General Eye: normal appearance of both eyes Neck General: normal visual inspection and trachea midline Resp normal respiratory effort, normal air movement, no retractions and no use of accessory muscles Effort and Inspection: able to speak in complete sentences Cardio regular rate and regular rhythm Extremity General Extremity: edema bilateral Peripheral Pulses: Yes dorsalis pedis pulses present Skin Wounds: wounds noted Wound Narrative: Right posterolateral calf wound which has significant slough/dried drainage but granular tissue at the base. All measures are improved today with depth through the wound 0.3 cm. No new erythema, excess warmth, focal edema. I did try to see if I could express any purulence/drainage from the wound but appreciated none. I used a metal probe to probe the wound thoroughly and did not reveal any tunneling. No induration/fluctuance. Neuro oriented x3, CN's II-XII intact bilaterally, moves all extremities, no focal motor deficits and no sensory deficits noted Psych mental status grossly normal Attitude: calm and engaged Activity / Motor Behavior: appropriate eye contact Speech: normal speech Mood & Affect: euthymic mood Judgement: judgement good Debridement Note Debridement Note Wound debrided: Right posterolateral calf wound Laterality: Right Type of Debridement: Excisional debridement Anesthesia Used: 4% Lidocaine Solution and 5% Lidocaine Gel Depth: Down to and including healthy tissue and in the subcutaneous layer Percentage of wound debrided: 100 Instrument Used: 3mm curette Tissue Removed: slough, devitalized tissue Severity: Fat Layer Exposed Amount of bleeding with debridement: Mild Bleeding Controlled with: Pressure Patient tolerated procedure: Patient tolerated procedure well Post-Debridement Measurements and Additional Note: Post-Debridement Measurements/Treatment WC - Nurse 1 - General Ulcer Assessment Start: 05/04/24 13:03 Freq: Status: Active Protocol: JAIME Activity Type Activity Date Activity User E-sign Co-sign Detail Recorded Client Recorded Date Recorded By Document 05/04/24 13:03 [id number] 05/04/24 13:11 05/04/24 13:03 - Today's Visit Information Type of service Follow-up Visit (Physician/[employer] ) Arrival Mode Ambulatory Patient Identification Verified (Name & Yes ) Vital Signs Temperature (97.8 F-99.1 F) 97.0 F L Temperature Source Temporal Pulse Rate (60-100) 69 Pulse Location Monitor Respiratory Rate (12-18) 18 Respiratory rate source Observation Oxygen Delivery Method Room Air Blood Pressure (90/60-120/80) 136/65 H Blood Pressure Mean (mm Hg) 88 Source Monitor Position Semi-Fowlers Blood Pressure Location Left Arm History Since Last Visit- (Skip if this is Patient's initial visit) Have you changed medications since your No last visit? Any new allergies or adverse reactions No Had a fall/change in ADL's that may No increase risk of falls Signs or symptoms of abuse and/or No neglect since last visit Have you been in the hospital since your No last visit? Has dressing in place as prescribed Yes Has compression in place as prescribed Yes Has offloadiing in place as prescribed N/A Experienced any changes in pain level or No management Left Footwear Regular Shoe Right Footwear Regular Shoe Pain Scale: 0-10 Numeric Is Patient Pain Free? Yes - Nurse 1 - General Ulcer Measurement Start: 05/04/24 13:03 Freq: Status: Active Protocol: Activity Type Activity Date Activity User E-sign Co-sign Detail Recorded Client Recorded Date Recorded By Document 05/04/24 13:03 [id number] 05/04/24 13:11 05/04/24 13:03 Wound Center Nurse 1 #1 Right Lower -Current Size (cm) - Length 2.2 -Current Size (cm) - Width 0.3 -Current Size (cm) - Depth 0.3 -Total Square Cm 0.66 -Exudate Amt Small -Exudate Type Serosanguineous -Wound Margin Distinct, Outline Attached -Granulation Amt Small (1-33%) -Granulation Quality [place] -Necrosis Amt Large (67-100%) -Necrotic Tissue Type Adherent Slough -Texture (Alpa-wound Skin Appearance) Assessed -Moisture (Alpa-wound Skin Appearance) Assessed,Dry/ Scaly -Color (Alpa-wound Skin Appearance) Assessed -Temperature (Alpa-wound Skin No Abnormality Appearance) (Pt Warm) -Tenderness on Palpation (Alpa-wound No Skin Appearance) -Ulcer Cleansing Rinsed/ Irrigated with Saline -Foul Odor after Cleansing No -Anesthetic Used 5% Lidocaine Gel - Nurse 2 - General Ulcer CM Notes Start: 05/04/24 13:03 Freq: Status: Active Protocol: Activity Type Activity Date Activity User E-sign Co-sign Detail Recorded Client Recorded Date Recorded By Document 05/04/24 13:21 [id number] 05/04/24 13:34 05/04/24 13:21 Wound Center Nurse 2 -Time 13:21 -Correct Patient Yes -Correct Side, Site, Position Yes -Correct Procedure Yes -Procedure Performed Yes -Type of Procedure Debridement -Clinical Debridement Subcutaneous -Tissue Removed Subcutaneous -Post Debridement (cm) - Length 2.0 -Post Debridement (cm) - Width 0.3 -Post Debridement (cm) - Depth 0.3 -Total Square (Post) (cm) 0.60 -Area of Debridement (cm) - Length 2.0 -Area of Debridement (cm) - Width 0.3 -Total Square (Area) (cm) 0.60 -Tunneling No -Undermining/Tunneling No -Circular Undermining No -Wound/Ulcer Outcome Not Healed -Ulcer Cleansing Rinsed/ Irrigated with Saline -Foul Odor after Cleansing No -Bioengineered Tissue No -Bleeding Controlled with Pressure -Treatment Response Procedure Tolerated Well -Debridement - Subq, 1st 20sq cm Yes Pain Scale: 0-10 Numeric Is Patient Pain Free? Yes - Nurse 3 - General Ulcer D/C NN Start: 05/04/24 13:03 Freq: Status: Active Protocol: Activity Type Activity Date Activity User E-sign Co-sign Detail Recorded Client Recorded Date Recorded By Document 05/04/24 13:46 [id number] 05/04/24 13:46 05/04/24 13:46 Wound Care Center Nurse 3 #1 Right Lower -Primary Dressing Applied AMD Dressing 4x4 -Primary Dressing Covered/Secured with Dry Gauze & Roll Gauze, Secured with Tape -AMD Dressing 4x4 1 Right -Tubular Bandage Single Layer -Size of Tubigrip Used Size E -Size E ($) 1 Pain Scale: 0-10 Numeric Is Patient Pain Free? 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 Will prescribe antibiotic as indicated by C&S. For wound care, will continue with Aquacel Silver and cover with [place]-SAP dressing. Change twice daily or more often as needed to keep clean and dry. With dressing changes, wash the area with antibacterial soap and water, pat gently to dry well. No submerging the wound in water such as to take a bath, go swimming, etc. It does seem she has been doing better packing the Aquacel to the base of the wound, encouraged to keep up with this. She was advised to please refrain from applying wound products other than those we have discussed. Will apply medium strength single layer tubigrip for compression. Her carotid duplex showed <50% stenosis of the bilateral ICAs. 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 No good targets for ablation, if venous intervention were needed, would be ligation/phlebectomy. Return to the clinic in 1 week.
[2024-05-11 13:05] VITALS: BP 134/70; PULSE 71; RESP 16; TEMP 36.2
--- NOTE | 2024-05-11 14:35 | PCM.WC.PN ---
History of Present Illness Date of Service: 05/11/24 Chief Complaint: R posterolateral calf wound History of Wound: Jhoana Nieves is a 78 y/o female who presents today for evaluation and management of a right posterolateral calf wound. She is accompanied to her appointment today by two family members. She is known to me from the vascular office where I have seen her for suspected venous insufficiency where I ordered venous reflux study which she is not scheduled to complete until 04/19. She reports that shortly after I saw her in the office in December, she developed this R calf wound. She thinks that she may have bumped this area of her leg. At home, she has been applying B&W ointment and other various herb salves without much improvement. She was started on some antibiotic by her PCP which she did not tolerate well, she cannot recall what antibiotic that was but she thinks she still has the bottle at home. She recently was seen for this wound in urgent care 03/20 at which time cultures were obtained. She was empirically started on Amoxicillin 875mg BID x 14 days which she is tolerating so far. The cultures ultimately grew lerma-sensitive E. coli. She notes mild to moderate drainage from the wound. She denies any spreading erythema, foul odor, acutely worsened edema, N/V, F/C. She is not diabetic. She does not smoke. Medical history is otherwise significant for A-fib (chronically anticoagulated with Coumadin), sick sinus syndrome status post pacemaker placement (2008). Subjective Subjective She continues to note some purulent drainage able to be expressed with pressure applied around the wound. Her daughter with her today reports this is typically a small amount and seems to be decreasing. No N/V, F/C, increasing lower extremity pain, swelling. Objective Data Objective Data Vital Signs: Vital Signs Temp Pulse Resp BP O2 Del Method 97.2 F L 71 16 134/70 H Room Air 05/11/24 13:05 05/11/24 13:05 05/11/24 13:05 05/11/24 13:05 05/11/24 13:05 Oxygen Delivery Method Room Air Lab / Micro Data Micro: Microbiology 05/04/24 13:35 Wound - Leg, Right Gram Stain - Final 05/04/24 13:35 Wound - Leg, Right Wound Culture - Preliminary Gram positive amol 05/04/24 13:35 Wound - Leg, Right Anaerobic Culture - Preliminary Checking for anaerobes, further studies to follow. Charges/Coding Procedures Integumentary [id number]: [id number] Jazzy subq tissue 20 sq cm/< Debridement Note Debridement Note Wound debrided: Right posterolateral calf wound Laterality: Right Type of Debridement: Excisional debridement Anesthesia Used: 4% Lidocaine Solution and 5% Lidocaine Gel Depth: Down to and including healthy tissue and in the subcutaneous layer Percentage of wound debrided: 100 Instrument Used: 3mm curette Tissue Removed: slough, devitalized tissue Severity: Fat Layer Exposed Amount of bleeding with debridement: Mild Bleeding Controlled with: Pressure Patient tolerated procedure: Patient tolerated procedure well Post-Debridement Measurements and Additional Note: Post-Debridement Measurements/Treatment WC - Nurse 1 - General Ulcer Assessment Start: 05/04/24 13:03 Freq: Status: Active Protocol: JAIME Activity Type Activity Date Activity User E-sign Co-sign Detail Recorded Client Recorded Date Recorded By Document 05/04/24 13:03 [id number] 05/04/24 13:11 KW Document 05/11/24 13:05 [id number] 05/11/24 13:14 KW 05/04/24 05/11/24 13:03 13:05 - Today's Visit Information Type of service Follow-up Visit Follow-up Visit (Physician/BRANCHER (Physician/BRANCHER ) ) Arrival Mode Ambulatory Ambulatory Patient Identification Verified (Name & Yes Yes ) Vital Signs Temperature (97.8 F-99.1 F) 97.0 F L 97.2 F L Temperature Source Temporal Temporal Pulse Rate (60-100) 69 71 Pulse Location Monitor Monitor Respiratory Rate (12-18) 18 16 Respiratory rate source Observation Observation Oxygen Delivery Method Room Air Room Air Blood Pressure (90/60-120/80) 136/65 H 134/70 H Blood Pressure Mean (mm Hg) 88 91 Source Monitor Monitor Position Semi-Fowlers Semi-Fowlers Blood Pressure Location Left Arm Left Arm History Since Last Visit- (Skip if this is Patient's initial visit) Have you changed medications since your No No last visit? Any new allergies or adverse reactions No No Had a fall/change in ADL's that may No No increase risk of falls Signs or symptoms of abuse and/or No No neglect since last visit Have you been in the hospital since your No No last visit? Has dressing in place as prescribed Yes Yes Has compression in place as prescribed Yes Yes Has offloadiing in place as prescribed N/A N/A Experienced any changes in pain level or No No management Left Footwear Regular Shoe Regular Shoe Right Footwear Regular Shoe Regular Shoe Pain Scale: 0-10 Numeric Is Patient Pain Free? Yes Yes CELY - Nurse 1 - General Ulcer Measurement Start: 05/04/24 13:03 Freq: Status: Active Protocol: Activity Type Activity Date Activity User E-sign Co-sign Detail Recorded Client Recorded Date Recorded By Document 05/04/24 13:03 KW [id number] 05/04/24 13:11 KW Document 05/11/24 13:05 KW [id number] 05/11/24 13:14 KW 05/04/24 05/11/24 13:03 13:05 Wound Center Nurse 1 #1 Right Lower -Current Size (cm) - Length 2.2 1.8 -Current Size (cm) - Width 0.3 0.4 -Current Size (cm) - Depth 0.3 0.2 -Total Square Cm 0.66 0.72 -Exudate Amt Small Small -Exudate Type Serosanguineous Serosanguineous -Wound Margin Distinct, Distinct, Outline Outline Attached Attached -Granulation Amt Small (1-33%) Medium (34-66%) -Granulation Quality [place] Red -Necrosis Amt Large (67-100%) Medium (34-66%) -Necrotic Tissue Type Adherent Slough Adherent Slough -Structure Exposed N/A -Texture (Alpa-wound Skin Appearance) Assessed Assessed -Moisture (Alpa-wound Skin Appearance) Assessed,Dry/ Assessed Scaly -Color (Alpa-wound Skin Appearance) Assessed Hemosiderin Staining -Temperature (Alpa-wound Skin No Abnormality No Abnormality Appearance) (Pt Warm) (Pt Warm) -Tenderness on Palpation (Alpa-wound No No Skin Appearance) -Ulcer Cleansing Rinsed/ Rinsed/ Irrigated with Irrigated with Saline Saline -Foul Odor after Cleansing No -Anesthetic Used 5% Lidocaine 5% Lidocaine Gel Gel Right Calf (cm) 33.3 Right Ankle (cm) 20.3 WC - Nurse 2 - General Ulcer CM Notes Start: 05/04/24 13:03 Freq: Status: Active Protocol: Activity Type Activity Date Activity User E-sign Co-sign Detail Recorded Client Recorded Date Recorded By Document 05/04/24 13:21 [id number] 05/04/24 13:34 Document 05/11/24 13:20 [id number] 05/11/24 13:36 05/04/24 05/11/24 13:21 13:20 Wound Center Nurse 2 #1 Right Lower -Time 13:21 13:22 -Correct Patient Yes Yes -Correct Side, Site, Position Yes Yes -Correct Procedure Yes Yes -Procedure Performed Yes Yes -Type of Procedure Debridement Debridement -Clinical Debridement Subcutaneous Subcutaneous -Tissue Removed Subcutaneous Subcutaneous -Post Debridement (cm) - Length 2.0 2.2 -Post Debridement (cm) - Width 0.3 1.0 -Post Debridement (cm) - Depth 0.3 0.4 -Total Square (Post) (cm) 0.60 2.20 -Area of Debridement (cm) - Length 2.0 2.2 -Area of Debridement (cm) - Width 0.3 1.0 -Total Square (Area) (cm) 0.60 2.20 -Tunneling No No -Undermining/Tunneling No Yes -Undermining/Tunneling Starts (O'clock 11 ) -Undermining/Tunneling Ends (O'clock) 1 -Maximum Distance (cm) 0.9 -Undermining/Tunneling Starts #2 (O' 4 clock) -Undermining/Tunneling Ends #2 (O' 4 clock) -Maximum Distance #2 (cm) 0.5 -Circular Undermining No No -Wound/Ulcer Outcome Not Healed Not Healed -Ulcer Cleansing Rinsed/ Rinsed/ Irrigated with Irrigated with Saline Saline -Foul Odor after Cleansing No No -Bioengineered Tissue No No -Bleeding Controlled with Pressure Pressure -Treatment Response Procedure Procedure Tolerated Well Tolerated Well -Debridement - Subq, 1st 20sq cm Yes Yes Pain Scale: 0-10 Numeric Is Patient Pain Free? Yes Yes WC - Nurse 3 - General Ulcer D/C NN Start: 05/04/24 13:03 Freq: Status: Active Protocol: Activity Type Activity Date Activity User E-sign Co-sign Detail Recorded Client Recorded Date Recorded By Document 05/04/24 13:46 KW [id number] 05/04/24 13:46 KW Document 05/11/24 13:56 DL [id number] 05/11/24 13:57 DL 05/04/24 05/11/24 13:46 13:56 Wound Care Center Nurse 3 #1 Right Lower -Ulcer Cleansing Rinsed/ Irrigated with Saline -Foul Odor after Cleansing No -Primary Dressing Applied AMD Dressing Nugauze, 4x4 Iodoform 1/4in -Primary Dressing Covered/Secured with Dry Gauze & Dry Gauze, Roll Gauze, Secured with Secured with Tape Tape -Other Covering ABD -AMD Dressing 4x4 1 -Nugauze, Iodoform 1/4in 1 -Wound Comment(s) Tubigrip E Right -Tubular Bandage Single Layer -Size of Tubigrip Used Size E -Size E ($) 1 Treatment Response Procedure Tolerated Well Pain Scale: 0-10 Numeric Is Patient Pain Free? 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 There is some induration proximal to the wound but no fluctuance, erythema, excess warmth. I extensively probed the wound, there is an area of undermining proximally and medially which may have been a pocket containing the purulent drainage, but I am not able to access any tunnels. She'd had a culture on 03/20 which grew E. coli which was pansensitive and then later anaerobe Yadiraa doloresi which was not tested for sensitivity. We treated with cipro x 14 days from 03/30 - 04/13. I obtained a culture last week which had rare growth gram positive amol but further identification and anaerobic study pending. I spoke to the lab and they report they did not get a shipment of supplies so these cultures had to be sent out to [facility] which is why the results are delayed. In case this is persistence of the anaerobic [place], I found case studies which show this to be generally sensitive to beta-lactams so I have prescribed Augmentin for now while we await C&S results. I discussed with patient that should this not continue to improve, or any increased purulence then would consider CT. For wound care, will change to iodoform gauze packing, ensuring to pack into the areas of undermining where purulence is able to be expressed. Change twice daily or more often as needed to keep clean and dry. With dressing changes, wash the area with antibacterial soap and water, pat gently to dry well. No submerging the wound in water such as to take a bath, go swimming, etc. It does seem she has been doing better packing the Aquacel to the base of the wound, encouraged to keep up with this. She was advised to please refrain from applying wound products other than those we have discussed. Will apply medium strength single layer tubigrip for compression. 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 No good targets for ablation, if venous intervention were needed, would be ligation/phlebectomy. Return to the clinic in 1 week.
[2024-05-18 13:32] VITALS: BP 111/51; PULSE 72; RESP 18; TEMP 36.1
--- NOTE | 2024-05-18 17:26 | PCM.WC.PN ---
History of Present Illness Date of Service: 05/18/24 Chief Complaint: R posterolateral calf wound History of Wound: Jhoana Nieves is a 78 y/o female who presents today for evaluation and management of a right posterolateral calf wound. She is accompanied to her appointment today by two family members. She is known to me from the vascular office where I have seen her for suspected venous insufficiency where I ordered venous reflux study which she is not scheduled to complete until 04/19. She reports that shortly after I saw her in the office in December, she developed this R calf wound. She thinks that she may have bumped this area of her leg. At home, she has been applying B&W ointment and other various herb salves without much improvement. She was started on some antibiotic by her PCP which she did not tolerate well, she cannot recall what antibiotic that was but she thinks she still has the bottle at home. She recently was seen for this wound in urgent care 03/20 at which time cultures were obtained. She was empirically started on Amoxicillin 875mg BID x 14 days which she is tolerating so far. The cultures ultimately grew lerma-sensitive E. coli. She notes mild to moderate drainage from the wound. She denies any spreading erythema, foul odor, acutely worsened edema, N/V, F/C. She is not diabetic. She does not smoke. Medical history is otherwise significant for A-fib (chronically anticoagulated with Coumadin), sick sinus syndrome status post pacemaker placement (2008). Subjective Subjective Had prescribed empirical augmentin at last appointment, she developed a rash with this so discontinued on Wednesday. She continues to be able to express small amount of purulent material from the superior aspect of the wound. Also has intermittent purulen material able to be expressed from a very small opening about 10 cm distal to her wound on her anterolateral ankle. No surrounding erythema/fluctuance/edema at this other location. She is not having any significant RLE edema, pain, difficulty ambulating, N/V, F/C. Objective Data Objective Data Vital Signs: Vital Signs Temp Pulse Resp BP O2 Del Method 97.0 F L 72 18 111/51 L Room Air 05/18/24 13:32 05/18/24 13:32 05/18/24 13:32 05/18/24 13:32 05/18/24 13:32 Oxygen Delivery Method Room Air Lab / Micro Data Micro: Microbiology 05/04/24 13:35 Wound - Leg, Right Gram Stain - Final 05/04/24 13:35 Wound - Leg, Right Wound Culture - Preliminary Gram positive amol 05/04/24 13:35 Wound - Leg, Right Anaerobic Culture - Final Anaerobic cocci 05/11/24 13:24 Wound - Leg, Right Gram Stain - Final 05/11/24 13:24 Wound - Leg, Right Wound Culture - Final Streptococcus pseudoporcinus Staphylococcus epidermidis 05/11/24 13:24 Wound - Leg, Right Anaerobic Culture - Final No anaerobic bacteria isolated. Charges/Coding Procedures Integumentary [id number]: [id number] Jazzy subq tissue 20 sq cm/< Physical Exam Const alert, oriented x3 and no apparent distress General Appearance: cooperative and comfortable HEENT normocephalic, hearing grossly normal bilaterally, external ears normal and external nose normal Eyes EOMs intact bilaterally General Eye: normal appearance of both eyes Neck General: normal visual inspection and trachea midline Resp normal respiratory effort, normal air movement, no retractions and no use of accessory muscles Effort and Inspection: able to speak in complete sentences Cardio regular rate and regular rhythm Extremity General Extremity: edema bilateral Peripheral Pulses: Yes dorsalis pedis pulses present Skin Wounds: wounds noted Wound Narrative: Right posterolateral calf wound which has significant slough/dried drainage but granular tissue at the base. No new erythema, excess warmth, focal edema. I was able to express a small amount of purulent material from the superior aspect of the wound, with probing there is a small opening here that is draining, there is a very shallow tunnel here. Probed the rest of the wound with no other tunnels appreciated. I was also able to express a very small amount of purulence from this other opening more distally on her R ankle. No surrounding erythema, fluctuance, focal edema. Neuro oriented x3, CN's II-XII intact bilaterally, moves all extremities, no focal motor deficits and no sensory deficits noted Psych mental status grossly normal Attitude: calm and engaged Activity / Motor Behavior: appropriate eye contact Speech: normal speech Mood & Affect: euthymic mood Judgement: judgement good Debridement Note Debridement Note Wound debrided: Right posterolateral calf wound Laterality: Right Type of Debridement: Excisional debridement Anesthesia Used: 4% Lidocaine Solution and 5% Lidocaine Gel Depth: Down to and including healthy tissue and in the subcutaneous layer Percentage of wound debrided: 100 Instrument Used: 3mm curette Tissue Removed: slough, devitalized tissue Severity: Fat Layer Exposed Amount of bleeding with debridement: Mild Bleeding Controlled with: Pressure Patient tolerated procedure: Patient tolerated procedure well Post-Debridement Measurements and Additional Note: Post-Debridement Measurements/Treatment WC - Nurse 1 - General Ulcer Assessment Start: 05/04/24 13:03 Freq: Status: Active Protocol: JAIME Activity Type Activity Date Activity User E-sign Co-sign Detail Recorded Client Recorded Date Recorded By Document 05/04/24 13:03 KW [id number] 05/04/24 13:11 KW Document 05/11/24 13:05 KW [id number] 05/11/24 13:14 KW Document 05/18/24 13:32 KW [id number] 05/18/24 13:36 KW 05/04/24 05/11/24 05/18/24 13:03 13:05 13:32 WC - Today's Visit Information Type of service Follow-up Visit Follow-up Visit Follow-up Visit (Physician/PRODUCTION CONTROL PEGBOARD CLERK (Physician/PRODUCTION CONTROL PEGBOARD CLERK (Physician/PRODUCTION CONTROL PEGBOARD CLERK ) ) ) Arrival Mode Ambulatory Ambulatory Ambulatory Patient Identification Verified (Name & Yes Yes Yes ) Vital Signs Temperature (97.8 F-99.1 F) 97.0 F L 97.2 F L 97.0 F L Temperature Source Temporal Temporal Temporal Pulse Rate (60-100) 69 71 72 Pulse Location Monitor Monitor Monitor Respiratory Rate (12-18) 18 16 18 Respiratory rate source Observation Observation Observation Oxygen Delivery Method Room Air Room Air Room Air Blood Pressure (90/60-120/80) 136/65 H 134/70 H 111/51 L Blood Pressure Mean (mm Hg) 88 91 71 Source Monitor Monitor Monitor Position Semi-Fowlers Semi-Fowlers Semi-Fowlers Blood Pressure Location Left Arm Left Arm Left Arm History Since Last Visit- (Skip if this is Patient's initial visit) Have you changed medications since your No No No last visit? Any new allergies or adverse reactions No No No Had a fall/change in ADL's that may No No No increase risk of falls Signs or symptoms of abuse and/or No No No neglect since last visit Have you been in the hospital since your No No No last visit? Has dressing in place as prescribed Yes Yes Yes Has compression in place as prescribed Yes Yes Yes Has offloadiing in place as prescribed N/A N/A N/A Experienced any changes in pain level or No No No management Left Footwear Regular Shoe Regular Shoe Regular Shoe Right Footwear Regular Shoe Regular Shoe Regular Shoe Pain Scale: 0-10 Numeric Is Patient Pain Free? Yes Yes Yes WC - Nurse 1 - General Ulcer Measurement Start: 05/04/24 13:03 Freq: Status: Active Protocol: Activity Type Activity Date Activity User E-sign Co-sign Detail Recorded Client Recorded Date Recorded By Document 05/04/24 13:03 KW [id number] 05/04/24 13:11 KW Document 05/11/24 13:05 KW [id number] 05/11/24 13:14 KW Document 05/18/24 13:32 KW [id number] 05/18/24 13:36 KW 05/04/24 05/11/24 05/18/24 13:03 13:05 13:32 Wound Center Nurse 1 #1 Right Lower -Current Size (cm) - Length 2.2 1.8 1.5 -Current Size (cm) - Width 0.3 0.4 2.5 -Current Size (cm) - Depth 0.3 0.2 0.3 -Total Square Cm 0.66 0.72 3.75 -Exudate Amt Small Small Small -Exudate Type Serosanguineous Serosanguineous Serosanguineous -Wound Margin Distinct, Distinct, Distinct, Outline Outline Outline Attached Attached Attached -Granulation Amt Small (1-33%) Medium (34-66%) Small (1-33%) -Granulation Quality [place] Red Red -Necrosis Amt Large (67-100%) Medium (34-66%) Large (67-100%) -Necrotic Tissue Type Adherent Slough Adherent Slough Adherent Slough -Structure Exposed N/A -Texture (Alpa-wound Skin Appearance) Assessed Assessed Assessed -Moisture (Alpa-wound Skin Appearance) Assessed,Dry/ Assessed Assessed Scaly -Color (Alpa-wound Skin Appearance) Assessed Hemosiderin Assessed Staining -Temperature (Alpa-wound Skin No Abnormality No Abnormality No Abnormality Appearance) (Pt Warm) (Pt Warm) (Pt Warm) -Tenderness on Palpation (Alpa-wound No No No Skin Appearance) -Ulcer Cleansing Rinsed/ Rinsed/ Rinsed/ Irrigated with Irrigated with Irrigated with Saline Saline Saline -Foul Odor after Cleansing No No -Anesthetic Used 5% Lidocaine 5% Lidocaine 5% Lidocaine Gel Gel Gel Right Calf (cm) 33.3 35.4 Right Ankle (cm) 20.3 20.5 WC - Nurse 2 - General Ulcer CM Notes Start: 05/04/24 13:03 Freq: Status: Active Protocol: Activity Type Activity Date Activity User E-sign Co-sign Detail Recorded Client Recorded Date Recorded By Document 05/04/24 13:21 [id number] 05/04/24 13:34 Document 05/11/24 13:20 [id number] 05/11/24 13:36 Document 05/18/24 13:43 [id number] 05/18/24 14:00 05/04/24 05/11/24 05/18/24 13:21 13:20 13:43 Wound Center Nurse 2 #1 Right Lower -Time 13:21 13:22 13:43 -Correct Patient Yes Yes Yes -Correct Side, Site, Position Yes Yes Yes -Correct Procedure Yes Yes Yes -Procedure Performed Yes Yes Yes -Type of Procedure Debridement Debridement Debridement -Clinical Debridement Subcutaneous Subcutaneous Subcutaneous -Tissue Removed Subcutaneous Subcutaneous Subcutaneous -Post Debridement (cm) - Length 2.0 2.2 2.2 -Post Debridement (cm) - Width 0.3 1.0 2.4 -Post Debridement (cm) - Depth 0.3 0.4 0.2 -Total Square (Post) (cm) 0.60 2.20 5.28 -Area of Debridement (cm) - Length 2.0 2.2 2.2 -Area of Debridement (cm) - Width 0.3 1.0 2.4 -Total Square (Area) (cm) 0.60 2.20 5.28 -Tunneling No No Yes -Tunneling Position (O'clock) 11 -Tunneling Distance (cm) 0.5 -Undermining/Tunneling No Yes No -Undermining/Tunneling Starts (O'clock 11 ) -Undermining/Tunneling Ends (O'clock) 1 -Maximum Distance (cm) 0.9 -Undermining/Tunneling Starts #2 (O' 4 clock) -Undermining/Tunneling Ends #2 (O' 4 clock) -Maximum Distance #2 (cm) 0.5 -Circular Undermining No No No -Wound/Ulcer Outcome Not Healed Not Healed Not Healed -Ulcer Cleansing Rinsed/ Rinsed/ Rinsed/ Irrigated with Irrigated with Irrigated with Saline Saline Saline -Foul Odor after Cleansing No No No -Bioengineered Tissue No No No -Bleeding Controlled with Pressure Pressure Pressure -Treatment Response Procedure Procedure Procedure Tolerated Well Tolerated Well Tolerated Well -Debridement - Subq, 1st 20sq cm Yes Yes Yes Pain Scale: 0-10 Numeric Is Patient Pain Free? Yes Yes Yes - Nurse 3 - General Ulcer D/C NN Start: 05/04/24 13:03 Freq: Status: Active Protocol: Activity Type Activity Date Activity User E-sign Co-sign Detail Recorded Client Recorded Date Recorded By Document 05/04/24 13:46 KW [id number] 05/04/24 13:46 KW Document 05/11/24 13:56 DL [id number] 05/11/24 13:57 DL Document 05/18/24 14:05 GM [id number] 05/18/24 14:05 05/04/24 05/11/24 05/18/24 13:46 13:56 14:05 Wound Care Center Nurse 3 #1 Right Lower -Ulcer Cleansing Rinsed/ Not Cleansed Irrigated with Saline -Foul Odor after Cleansing No No -Primary Dressing Applied AMD Dressing Nugauze, Aquacel AG 4x4 4x4 Iodoform 1/4in -Primary Dressing Covered/Secured with Dry Gauze & Dry Gauze, Dry Gauze & Roll Gauze, Secured with Roll Gauze, Secured with Tape Secured with Tape Tape -Other Covering ABD -AMD Dressing 4x4 1 -Aquacel AG 4x4 1 -Nugauze, Iodoform 1/4in 1 -Wound Comment(s) Tubigrip E Right -Tubular Bandage Single Layer -Size of Tubigrip Used Size E -Size E ($) 1 Treatment Response Procedure Tolerated Well Pain Scale: 0-10 Numeric Is Patient Pain Free? 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 We do have C&S results back from prior cultures. 05/04 culture grew an anaerobic cocci and stated generally sensitive to cephalosporins. 05/11 cultures grew streptococcus pseudoporcinus susceptible to third generation cephalosporins and staphylococcus epidermidis pansensitive. I have prescribed cefuroxime 500mg PO BID x 14 days and topical gentamicin. Given the continued purulence and now drainage from a distal site in her leg will also order CT to further evaluate for potential deep abscess or other complication. She has not had success with packing with iodoform. For wound care, will apply gentamicin to the wound 2-3 times daily, cover with aquacel followed by ABD pad as needed for drainage and kerlix wrap. She has very sensitive skin, will utilize silicone tape or tape only dressings and avoid taping skin. Change twice daily or more often as needed to keep clean and dry. With dressing changes, wash the area with antibacterial soap and water, pat gently to dry well. No submerging the wound in water such as to take a bath, go swimming, etc. Will continue medium strength single layer tubigrip for compression. 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 No good targets for ablation, if venous intervention were needed, would be ligation/phlebectomy. Return to the clinic in 2 weeks per patient preference.
== END 2024-05-30 23:59 | disposition home or self-care (01) ==
LOC: WC 13:00
PROVIDERS: PCP Nurse Practitioner Family; Referring Provider Nurse Practitioner Family; Visit Provider Physician Assistant
DX: I87.2 Venous insufficiency (chronic) (peripheral) (principal); L97.212 Non-pressure chronic ulcer of right calf with fat layer exposed; Z79.01 Long term (current) use of anticoagulants; Z95.0 Presence of cardiac pacemaker
CPT/HCPCS: 11042; 87070; 87075; 87077; 87186; 87205

== ENCOUNTER 2024-06-22 13:00 | Outpatient (RCR) | payer MEDICARE, SELFPAY ==
[2024-05-31 00:14] VITALS: BP 138/53; PULSE 71; RESP 18; TEMP 36.1
[2024-06-01 13:04] VITALS: BP 130/73; PULSE 66; RESP 20; TEMP 36.4
--- NOTE | 2024-06-01 14:18 | PN.PCM_ITS ---
History of Present Illness Date of Service: 06/01/24 Chief Complaint: R posterolateral calf wound History of Wound: Jhoana Nieves is a 78 y/o female who presents today for evaluation and management of a right posterolateral calf wound. She is accompanied to her appointment today by two family members. She is known to me from the vascular office where I have seen her for suspected venous insufficiency where I ordered venous reflux study which she is not scheduled to complete until 04/19. She reports that shortly after I saw her in the office in December, she developed this R calf wound. She thinks that she may have bumped this area of her leg. At home, she has been applying B&W ointment and other various herb salves without much improvement. She was started on some antibiotic by her PCP which she did not tolerate well, she cannot recall what antibiotic that was but she thinks she still has the bottle at home. She recently was seen for this wound in urgent care 03/20 at which time cultures were obtained. She was empirically started on Amoxicillin 875mg BID x 14 days which she is tolerating so far. The cultures ultimately grew lerma-sensitive E. coli. She notes mild to moderate drainage from the wound. She denies any spreading erythema, foul odor, acutely worsened edema, N/V, F/C. She is not diabetic. She does not smoke. Medical history is otherwise significant for A-fib (chronically anticoagulated with Coumadin), sick sinus syndrome status post pacemaker placement (2008). Subjective Subjective Patient was seen today, she reports some new pain and swelling around her ankle. This has been going on for a few days. She denies any N/V, F/C. She reports that she didn't start taking the last round of antibiotics right away, as such she still has about 1 week left. She has also not been applying the Gentamicin ointment or any other wound care products as directed. Since 05/24 she reports she has just been leaving the wounds open to air and applying coconut oil. She continues to note small amount of white drainage able to be expressed from the calf wound. She has an opening at her lateral R ankle which is getting primarily serosanguineous drainage, but occasionally some thicker white drainage as well, this is in the area of her pain though no apparent abscess/focal edema/erythema/fluctuance. Objective Data Objective Data Vital Signs: Vital Signs Temp Pulse Resp BP 97.5 F L 66 20 H 130/73 H 06/01/24 13:04 06/01/24 13:04 06/01/24 13:04 06/01/24 13:04 Charges/Coding Procedures Integumentary [id number]: [id number] Jazzy subq tissue 20 sq cm/< Physical Exam Const alert, oriented x3 and no apparent distress General Appearance: cooperative and comfortable HEENT normocephalic, hearing grossly normal bilaterally, external ears normal and external nose normal Eyes EOMs intact bilaterally General Eye: normal appearance of both eyes Neck General: normal visual inspection and trachea midline Resp normal respiratory effort, normal air movement, no retractions and no use of accessory muscles Effort and Inspection: able to speak in complete sentences Cardio regular rate and regular rhythm Extremity General Extremity: edema bilateral Peripheral Pulses: Yes dorsalis pedis pulses present Skin Wounds: wounds noted Wound Narrative: Right posterolateral calf wound which has significant slough/dried drainage but granular tissue at the base. No new erythema, excess warmth, focal edema. I was able to express a small amount of purulent material from the superior aspect of the wound, with probing there is a small opening here that is draining, there is a very shallow tunnel here. Probed the rest of the wound with no other tunnels appreciated. I was also able to express a small amount of serous drainage from this other opening more distally on her R ankle. This has enlarged a bit since her last visit, now able to fit a probe into and it probed about 0.6 cm, seems to probe to bone/connective tissue but just straight in, no tracking. There is mild erythema in the area of her ankle; no fluctuance, excess warmth. No pain to palpation of her calf/negative Jonathan's sign. Neuro oriented x3, CN's II-XII intact bilaterally, moves all extremities, no focal motor deficits and no sensory deficits noted Psych mental status grossly normal Attitude: calm and engaged Activity / Motor Behavior: appropriate eye contact Speech: normal speech Mood & Affect: euthymic mood Judgement: judgement good Debridement Note Debridement Note Wound debrided: Right posterolateral calf wound Laterality: Right Type of Debridement: Excisional debridement Anesthesia Used: 4% Lidocaine Solution and 5% Lidocaine Gel Depth: Down to and including healthy tissue and in the subcutaneous layer Percentage of wound debrided: 100 Instrument Used: 3mm curette Tissue Removed: slough, devitalized tissue Severity: Fat Layer Exposed Amount of bleeding with debridement: Mild Bleeding Controlled with: Pressure Patient tolerated procedure: Patient tolerated procedure well Post-Debridement Measurements and Additional Note: Post-Debridement Measurements/Treatment - Nurse 1 - General Ulcer Assessment Start: 06/01/24 13:04 Freq: Status: Active Protocol: LOWEXRosaline Activity Type Activity Date Activity User E-sign Co-sign Detail Recorded Client Recorded Date Recorded By Document 06/01/24 13:04 DL [id number] 06/01/24 13:14 DL 06/01/24 13:04 WC - Today's Visit Information Type of service Follow-up Visit (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 Any new allergies or adverse reactions No Had a fall/change in ADL's that may No increase risk of falls Signs or symptoms of abuse and/or No neglect since last visit Have you been in the hospital since your No last visit? Has dressing in place as prescribed Yes Has compression in place as prescribed Yes Has offloadiing in place as prescribed N/A Experienced any changes in pain level or No management Pain Scale: 0-10 Numeric Is Patient Pain Free? Yes - Nurse 1 - General Ulcer Measurement Start: 06/01/24 13:04 Freq: Status: Active Protocol: Activity Type Activity Date Activity User E-sign Co-sign Detail Recorded Client Recorded Date Recorded By Document 06/01/24 13:04 DL [id number] 06/01/24 13:14 DL 06/01/24 13:04 Wound Center Nurse 1 #1 Right Lower Leg -Current Size (cm) - Length 1.5 -Current Size (cm) - Width 0.5 -Current Size (cm) - Depth 0.3 -Total Square Cm 0.75 -Exudate Amt Small -Exudate Type Serosanguineous -Wound Margin Thickened & Rolled Under -Granulation Amt None Present (0 %) -Necrosis Amt Large (67-100%) -Necrotic Tissue Type Adherent Slough -Structure Exposed N/A -Texture (Alpa-wound Skin Appearance) Localized Edema ,Scarring -Color (Alpa-wound Skin Appearance) Erythema, Hemosiderin Staining -Temperature (Alpa-wound Skin No Abnormality Appearance) (Pt Warm) -Tenderness on Palpation (Alpa-wound No Skin Appearance) -Ulcer Cleansing Soap and Water -Foul Odor after Cleansing No -Anesthetic Used 5% Lidocaine Gel Right Calf (cm) 33.5 Right Ankle (cm) 20.5 WC - Nurse 2 - General Ulcer CM Notes Start: 06/01/24 13:04 Freq: Status: Active Protocol: Activity Type Activity Date Activity User E-sign Co-sign Detail Recorded Client Recorded Date Recorded By Document 06/01/24 13:32 [id number] 06/01/24 13:47 GM 06/01/24 13:32 Wound Center Nurse 2 #2 Right superior ankle -Time 13:46 -Correct Patient Yes -Correct Side, Site, Position Yes -Correct Procedure No -Procedure Performed No -Post Debridement (cm) - Length 0.2 -Post Debridement (cm) - Width 0.1 -Post Debridement (cm) - Depth 0.6 -Total Square (Post) (cm) 0.02 -Tunneling No -Undermining/Tunneling No -Circular Undermining No -Wound/Ulcer Outcome Not Healed -Foul Odor after Cleansing No -Bioengineered Tissue No #1 Right Lower Leg -Time 13:32 -Correct Patient Yes -Correct Side, Site, Position Yes -Correct Procedure Yes -Procedure Performed Yes -Type of Procedure Debridement -Clinical Debridement Subcutaneous -Tissue Removed Subcutaneous -Post Debridement (cm) - Length 2.0 -Post Debridement (cm) - Width 1.1 -Post Debridement (cm) - Depth 0.3 -Total Square (Post) (cm) 2.20 -Area of Debridement (cm) - Length 2.0 -Area of Debridement (cm) - Width 1.1 -Total Square (Area) (cm) 2.20 -Tunneling Yes -Tunneling Position (O'clock) 11 -Tunneling Distance (cm) 0.3 -Undermining/Tunneling No -Circular Undermining No -Wound/Ulcer Outcome Not Healed -Ulcer Cleansing Rinsed/ Irrigated with Saline -Foul Odor after Cleansing No -Bioengineered Tissue No -Bleeding Controlled with Pressure -Treatment Response Procedure Tolerated Well -Debridement - Subq, 1st 20sq cm Yes Pain Scale: 0-10 Numeric Is Patient Pain Free? Yes - Nurse 3 - General Ulcer D/C NN Start: 06/01/24 13:04 Freq: Status: Active Protocol: Activity Type Activity Date Activity User E-sign Co-sign Detail Recorded Client Recorded Date Recorded By Document 06/01/24 14:02 DL [id number] 06/01/24 14:04 DL 06/01/24 14:02 Wound Care Center Nurse 3 #2 Right superior ankle -Ulcer Cleansing Rinsed/ Irrigated with Saline -Foul Odor after Cleansing No -Primary Dressing Applied Aquacel AG 4x4 -Primary Dressing Covered/Secured with Dry Gauze & Roll Gauze, Secured with Tape -Aquacel AG 4x4 1 #1 Right Lower Leg -Ulcer Cleansing Rinsed/ Irrigated with Saline -Foul Odor after Cleansing No -Primary Dressing Applied Aquacel AG 4x4 -Primary Dressing Covered/Secured with Dry Gauze & Roll Gauze, Secured with Tape -Aquacel AG 4x4 1 -Wound Comment(s) pt to resume gentamyicin oint at home Right -Tubular Bandage Single Layer -Size of Tubigrip Used Size E -Size E ($) 1 Treatment Response Procedure Tolerated Well Pain Scale: 0-10 Numeric Is Patient Pain Free? 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 We do have C&S results back from prior cultures. 05/04 culture grew an anaerobic cocci and stated generally sensitive to cephalosporins. 05/11 cultures grew streptococcus pseudoporcinus susceptible to third generation cephalosporins and staphylococcus epidermidis pansensitive. I have prescribed cefuroxime 500mg PO BID x 14 days and topical gentamicin. She has not been taking/applying these as prescribed. I emphasized the importance of taking her oral antibiotic and applying the topical antibiotic exactly as prescribed. We also discussed the importance of adhering to wound care instructions exactly as outlined. I advise against using coconut oil and I strongly advise keeping the wounds covered. Leaving them uncovered may be contributing to recurrent infection. For wound care, will apply gentamicin to the wound 2-3 times daily, cover with aquacel followed by ABD pad as needed for drainage and kerlix wrap. She has very sensitive skin, will utilize silicone tape or tape only dressings and avoid taping skin. Change twice daily or more often as needed to keep clean and dry. With dressing changes, wash the area with antibacterial soap and water, pat g ently to dry well. No submerging the wound in water such as to take a bath, go swimming, etc. Will continue medium strength single layer tubigrip for compression. She is scheduled for the CT on 05/08. Given new swelling and pain and newer ankle ulcer will obtain a XR today along with CBC, BMP, and uric acid. Return to the clinic in [address] is next . I will call with results from testing that was ordered today and will update our plan accordingly. Discussed red flag signs/symptoms which should lead her to present to the ER.
--- NOTE | 2024-06-01 14:36 | RAD_ITS ---
STUDY: X-RAY - RIGHT TIBIA AND FIBULA REASON FOR EXAM: Female, 78 years old. R calf and ankle wounds TECHNIQUE: 2 views of the right tibia and fibula were obtained. COMPARISON: None. FINDINGS: Normal visualized tibia. Normal visualized fibula. There is no demonstrated acute fracture or discrete osseous lesion. There are benign soft tissue calcifications in the distal half of the calf. There are mild atherosclerotic calcifications. RAD/Tibia & Fibula 2 Views IMPRESSION: Intact tibia and fibula. Electronically Signed: Alejandro Hylton MD at 8:15 EST ,
--- NOTE | 2024-06-01 14:36 | RAD_ITS ---
STUDY: X-RAY - RIGHT ANKLE REASON FOR EXAM: Female, 78 years old. R ankle wound TECHNIQUE: 2 views of the right ankle. COMPARISON: None. FINDINGS: Normal visualized distal tibia and fibula. Normal medial and lateral malleoli. Normal tibiotalar articulation and ankle mortise. Intact visualized talus and calcaneus. There are small plantar and posterior calcaneal spurs. The visualized subtalar, talonavicular, calcaneocuboid and tarsal articulations are normal. There is no demonstrated fracture. There is mild generalized soft tissue swelling around the ankle. There are benign soft tissue calcifications in the distal half of the calf. There are mild atherosclerotic calcifications. RAD/Ankle 2 Views IMPRESSION: Small plantar and posterior calcaneal spurs. Mild generalized soft tissue swelling around the ankle. Electronically Signed: Alejandro Hylton MD at 8:17 EST ,
[2024-06-01 15:15] LABS: Absolute Neutrophil Count 3.2 X10^3/uL (2.0-7.7); Basophil# 0.05 X10^3/uL; Basophil% 0.9 % (0-1); Eosinophil# 0.29 X10^3/uL; Hematocrit 32.1 % (37-47); Lymphocyte % 29.3 % (19-41); Mean Corp Hgb Conc 31.2 g/dL (32-36); Mean Corpuscular Hgb 30.7 pg (27.0-32.0); Mean Corpuscular Volume 98.5 fL (81-99); Mean Platelet Vol. 10.5 fl (6.2-12.0); Monocyte# 0.56 X10^3/uL; Monocyte% 9.6 % (0-10); NRBC Flagged by Analyzer 0 % (0-5); Neutrophil # 3.19 X10^3/uL (2.7-7.7); Neutrophil % 54.9 % (47-70); POSITIVE MORPHOLOGY YES; Platelet Count 222 K/mm3 (150-450); RBC Distribution Width CV 20.6 % (11.6-14.6); RBC Distribution Width SD 74.4 fl (35.1-43.9); Red Blood Count 3.26 M/mm3 (4.2-5.4); White Blood Count 5.8 K/mm3 (4.4-11.0)
[2024-06-01 15:30] LABS: Differential Indicated SCAN CRITERIA MET
[2024-06-01 16:07] LABS: Anion Gap 5 (5-15); BUN 27 mg/dL (7-18); Calcium,Total 9.8 mg/dL (8.5-10.1); Chloride 107 mmol/L (98-107); Creatinine, Serum 0.96 mg/dL (0.55-1.02); EST Glomerular Filtration Rate 60 mL/min (>60); Est Glom Filt Rate - Afr Amer 72 mL/min (>60); Glucose 99 mg/dL (74-106); Potassium 4.2 mmol/L (3.5-5.1); Sodium Level 140 mmol/L (136-145); Uric Acid 3.8 mg/dL (2.6-6.0)
[2024-06-01 16:14] LABS: Platelet Estimate ADEQUATE (ADEQ); Red Cell Morphology N CHROM NORMAL (NORM C&C)
[2024-06-01 16:15] LABS: Anisocytosis 2+; Hypochromasia RARE; Macrocytosis 2+
--- NOTE | 2024-06-08 14:22 | CT_ITS ---
STUDY: CT RIGHT LOWER EXTREMITY REASON FOR EXAM: Female, 78 years old. RLE WOUND RADIATION DOSAGE (If Supplied By Facility): CTDIvol = ( 15.35 ) mGy, DLP = ( 752.89 ) mGycm TECHNIQUE: Thin section transaxial imaging of the right lower extremity was obtained, with sagittal and coronal reconstructed images. Individualized dose optimization techniques were used for this CT. COMPARISON: Right ankle radiographs dated 06/01/2024. FINDINGS: There is skin ulceration along the anterolateral aspect of the upper ankle, with adjacent cellulitis. There is no drainable fluid collection or abscess. There are benign soft tissue calcifications in the subcutaneous fat throughout the mid to distal calf. There are atherosclerotic calcifications. Normal visualized tibia and fibula. Normal talus, calcaneus, and tarsal bones. Normal visualized tibiotalar, subtalar, talonavicular, calcaneocuboid, tarsal and tarsometatarsal articulations. Normal metatarsi. Normal metatarsophalangeal joint of the great toe. Normal tibial and fibular sesamoid bones. Normal interphalangeal joint of the great toe. Normal phalanges of the great toe. Normal second through fifth metatarsophalangeal joints. Normal interphalangeal joints and phalanges of the lesser toes. There is no demonstrated acute fracture. There is mild subcutaneous soft tissue edema around the right ankle. CT/Extremity Lower without Contra IMPRESSION: Skin ulceration along the anterolateral aspect of the upper ankle, with adjacent cellulitis. No drainable fluid collection or abscess. Electronically Signed: Alejandro Hylton MD at 14:43 EST ,
[2024-06-22 13:10] VITALS: BP 130/49; PULSE 74; RESP 18; TEMP 36
--- NOTE | 2024-06-22 17:55 | PCM.WC.PN ---
History of Present Illness Date of Service: 06/22/24 Chief Complaint: R posterolateral calf wound History of Wound: Jhoana Nieves is a 78 y/o female who presents today for evaluation and management of a right posterolateral calf wound. She is accompanied to her appointment today by two family members. She is known to me from the vascular office where I have seen her for suspected venous insufficiency where I ordered venous reflux study which she is not scheduled to complete until 04/19. She reports that shortly after I saw her in the office in December, she developed this R calf wound. She thinks that she may have bumped this area of her leg. At home, she has been applying B&W ointment and other various herb salves without much improvement. She was started on some antibiotic by her PCP which she did not tolerate well, she cannot recall what antibiotic that was but she thinks she still has the bottle at home. She recently was seen for this wound in urgent care 03/20 at which time cultures were obtained. She was empirically started on Amoxicillin 875mg BID x 14 days which she is tolerating so far. The cultures ultimately grew lerma-sensitive E. coli. She notes mild to moderate drainage from the wound. She denies any spreading erythema, foul odor, acutely worsened edema, N/V, F/C. She is not diabetic. She does not smoke. Medical history is otherwise significant for A-fib (chronically anticoagulated with Coumadin), sick sinus syndrome status post pacemaker placement (2008). Subjective Subjective Since last visit, obtain CTA of the lower leg to further evaluate for potential underlying abscess, osteomyelitis, or other complication contributing to continued purulent drainage and what was initially a new small opening with purulent drainage but has since progressed to new wound of the anterior R leg. CTA was negative for abscess or other apparent complication, showed only Skin ulceration along the anterolateral aspect of the upper ankle, with adjacent cellulitis. Not able to evaluate with MRI due to presence of pacemaker and metal amol in LLE. Objective Data Objective Data Vital Signs: Vital Signs Temp Pulse Resp BP 96.8 F L 74 18 130/49 H 06/22/24 13:10 06/22/24 13:10 06/22/24 13:10 06/22/24 13:10 Lab / Micro Data 06/01/24 14:24 06/01/24 14:24 Charges/Coding Procedures Integumentary [id number]: [id number] Jazzy subq tissue 20 sq cm/< Physical Exam Const alert, oriented x3 and no apparent distress General Appearance: cooperative and comfortable HEENT normocephalic, hearing grossly normal bilaterally, external ears normal and external nose normal Eyes EOMs intact bilaterally General Eye: normal appearance of both eyes Neck General: normal visual inspection and trachea midline Resp normal respiratory effort, normal air movement, no retractions and no use of accessory muscles Effort and Inspection: able to speak in complete sentences Cardio regular rate and regular rhythm Extremity General Extremity: edema bilateral Peripheral Pulses: Yes dorsalis pedis pulses present Skin Wounds: wounds noted Wound Narrative: Right posterolateral calf wound which has nearly completely epithelialized except for very small opening proximally. No new erythema, excess warmth, focal edema. I was able to express a very small amount of purulent material from this very small opening/short shallow tunnel. What had previously just been a very small opening/tunnel on the R ankle has devolved to a larger open wound with significant slough. This area is very tender to touch, there is induration but no focal fluid collection/fluctuance. Probes to connective tissue. There is associated erythema/mild warmth. Neuro oriented x3, CN's II-XII intact bilaterally, moves all extremities, no focal motor deficits and no sensory deficits noted Psych mental status grossly normal Attitude: calm and engaged Activity / Motor Behavior: appropriate eye contact Speech: normal speech Mood & Affect: euthymic mood Judgement: judgement good Debridement Note Debridement Note Wound debrided: Right anterior calf wound Laterality: Right Type of Debridement: Excisional debridement Anesthesia Used: 4% Lidocaine Solution and 5% Lidocaine Gel Depth: Down to and including healthy tissue and in the subcutaneous layer Percentage of wound debrided: 100 Instrument Used: 3mm curette Tissue Removed: slough, devitalized tissue Severity: Fat Layer Exposed Amount of bleeding with debridement: Mild Bleeding Controlled with: Pressure Patient tolerated procedure: Patient tolerated procedure well Post-Debridement Measurements and Additional Note: Post-Debridement Measurements/Treatment CELY - Nurse 1 - General Ulcer Assessment Start: 06/01/24 13:04 Freq: Status: Active Protocol: JAIME Activity Type Activity Date Activity User E-sign Co-sign Detail Recorded Client Recorded Date Recorded By Document 06/01/24 13:04 DL [id number] 06/01/24 13:14 DL Document 06/22/24 13:10 RB [id number] 06/22/24 13:17 RB 06/01/24 06/22/24 13:04 13:10 WC - Today's Visit Information Type of service Follow-up Visit Follow-up Visit (Physician/LAW FIRM ADMINISTRATOR (Physician/LAW FIRM ADMINISTRATOR ) ) Arrival Mode Ambulatory Ambulatory Transfer Assistance None None Patient Identification Verified (Name & Yes Yes ) Patient Requires Transmission-Based No No Precautions Vital Signs Temperature (97.8 F-99.1 F) 97.5 F L 96.8 F L Temperature Source Temporal Temporal Pulse Rate (60-100) 66 74 Pulse Location Monitor Monitor Respiratory Rate (12-18) 20 H 18 Respiratory rate source Observation Observation Blood Pressure (90/60-120/80) 130/73 H 130/49 H Blood Pressure Mean (mm Hg) 92 76 Source Monitor Monitor Position Sitting Blood Pressure Location Left Arm History Since Last Visit- (Skip if this is Patient's initial visit) Have you changed medications since your No No last visit? Any new allergies or adverse reactions No No Had a fall/change in ADL's that may No No increase risk of falls Signs or symptoms of abuse and/or No No neglect since last visit Have you been in the hospital since your No No last visit? Has dressing in place as prescribed Yes Yes Has compression in place as prescribed Yes Yes Has offloadiing in place as prescribed N/A N/A Experienced any changes in pain level or No No management Left Footwear Regular Shoe Right Footwear Regular Shoe Pain Scale: 0-10 Numeric Is Patient Pain Free? Yes Yes - Nurse 1 - General Ulcer Measurement Start: 06/01/24 13:04 Freq: Status: Active Protocol: Activity Type Activity Date Activity User E-sign Co-sign Detail Recorded Client Recorded Date Recorded By Document 06/01/24 13:04 DL [id number] 06/01/24 13:14 DL Document 06/22/24 13:10 RB [id number] 06/22/24 13:17 RB 06/01/24 06/22/24 13:04 13:10 Wound Center Nurse 1 #2 Right superior ankle -Combined with other wound No -Current Size (cm) - Length 3 -Current Size (cm) - Width 1 -Current Size (cm) - Depth 0.1 -Total Square Cm 3 -Tunneling No -Undermining/Tunneling No -Circular Undermining No -Exudate Amt Medium -Exudate Type Serosanguineous -Wound Margin Distinct, Outline Attached -Granulation Amt Medium (34-66%) -Granulation Quality [place] -Slough/Fibrin Yes -Necrosis Amt Small (1-33%) -Necrotic Tissue Type Adherent Slough -Structure Exposed N/A -Texture (Alpa-wound Skin Appearance) Assessed, Scarring -Moisture (Alpa-wound Skin Appearance) Assessed -Color (Alpa-wound Skin Appearance) Assessed, Erythema, Hemosiderin Staining -Temperature (Alpa-wound Skin No Abnormality Appearance) (Pt Warm) -Tenderness on Palpation (Alpa-wound No Skin Appearance) -Ulcer Cleansing Wound Cleanser -Foul Odor after Cleansing No -Anesthetic Used 5% Lidocaine Gel #1 Right Lower Leg -Combined with other wound No -Current Size (cm) - Length 1.5 0.1 -Current Size (cm) - Width 0.5 0.1 -Current Size (cm) - Depth 0.3 0.1 -Total Square Cm 0.75 0.01 -Tunneling No -Undermining/Tunneling No -Circular Undermining No -Exudate Amt Small None Present -Exudate Type Serosanguineous -Wound Margin Thickened & Distinct, Rolled Under Outline Attached -Granulation Amt None Present (0 Medium (34-66%) %) -Granulation Quality [place] -Slough/Fibrin Yes -Necrosis Amt Large (67-100%) Small (1-33%) -Necrotic Tissue Type Adherent Slough Adherent Slough -Structure Exposed N/A N/A -Texture (Alpa-wound Skin Appearance) Localized Edema Assessed, ,Scarring Scarring -Moisture (Alpa-wound Skin Appearance) Assessed -Color (Alpa-wound Skin Appearance) Erythema, Assessed Hemosiderin Staining -Temperature (Alpa-wound Skin No Abnormality No Abnormality Appearance) (Pt Warm) (Pt Warm) -Tenderness on Palpation (Alpa-wound No No Skin Appearance) -Ulcer Cleansing Soap and Water Wound Cleanser -Foul Odor after Cleansing No No -Anesthetic Used 5% Lidocaine 5% Lidocaine Gel Gel Lower Limb Edema Present Yes Right Calf (cm) 33.5 33.5 Right Ankle (cm) 20.5 21 WC - Nurse 2 - General Ulcer CM Notes Start: 06/01/24 13:04 Freq: Status: Active Protocol: Activity Type Activity Date Activity User E-sign Co-sign Detail Recorded Client Recorded Date Recorded By Document 06/01/24 13:32 [id number] 06/01/24 13:47 Document 06/22/24 13:27 [id number] 06/22/24 13:53 06/01/24 06/22/24 13:32 13:27 Wound Center Nurse 2 #2 Right superior ankle -Time 13:46 13:28 -Correct Patient Yes Yes -Correct Side, Site, Position Yes Yes -Correct Procedure No Yes -Procedure Performed No Yes -Type of Procedure Debridement -Clinical Debridement Subcutaneous -Tissue Removed Subcutaneous -Post Debridement (cm) - Length 0.2 3.0 -Post Debridement (cm) - Width 0.1 1.1 -Post Debridement (cm) - Depth 0.6 0.6 -Total Square (Post) (cm) 0.02 3.30 -Area of Debridement (cm) - Length 3.0 -Area of Debridement (cm) - Width 1.1 -Total Square (Area) (cm) 3.30 -Tunneling No No -Undermining/Tunneling No No -Circular Undermining No No -Wound/Ulcer Outcome Not Healed Not Healed -Ulcer Cleansing Rinsed/ Irrigated with Saline -Foul Odor after Cleansing No No -Bioengineered Tissue No No -Bleeding Controlled with Pressure -Treatment Response Procedure Tolerated Well -Debridement - Subq, 1st 20sq cm No #1 Right Lower Leg -Time 13:32 13:29 -Correct Patient Yes Yes -Correct Side, Site, Position Yes Yes -Correct Procedure Yes Yes -Procedure Performed Yes Yes -Type of Procedure Debridement Debridement -Clinical Debridement Subcutaneous Subcutaneous -Tissue Removed Subcutaneous Subcutaneous -Post Debridement (cm) - Length 2.0 0.1 -Post Debridement (cm) - Width 1.1 0.1 -Post Debridement (cm) - Depth 0.3 0.1 -Total Square (Post) (cm) 2.20 0.01 -Area of Debridement (cm) - Length 2.0 0.1 -Area of Debridement (cm) - Width 1.1 0.1 -Total Square (Area) (cm) 2.20 0.01 -Tunneling Yes No -Tunneling Position (O'clock) 11 -Tunneling Distance (cm) 0.3 -Undermining/Tunneling No No -Circular Undermining No No -Wound/Ulcer Outcome Not Healed Not Healed -Ulcer Cleansing Rinsed/ Rinsed/ Irrigated with Irrigated with Saline Saline -Foul Odor after Cleansing No No -Bioengineered Tissue No No -Bleeding Controlled with Pressure Pressure -Treatment Response Procedure Procedure Tolerated Well Tolerated Well -Debridement - Subq, 1st 20sq cm Yes Yes Pain Scale: 0-10 Numeric Is Patient Pain Free? Yes Yes WC - Nurse 3 - General Ulcer D/C NN Start: 06/01/24 13:04 Freq: Status: Active Protocol: Activity Type Activity Date Activity User E-sign Co-sign Detail Recorded Client Recorded Date Recorded By Document 06/01/24 14:02 DL [id number] 06/01/24 14:04 DL Document 06/22/24 14:09 DL [id number] 06/22/24 14:10 DL 06/01/24 06/22/24 14:02 14:09 Wound Care Center Nurse 3 #2 Right superior ankle -Ulcer Cleansing Rinsed/ Rinsed/ Irrigated with Irrigated with Saline Saline -Foul Odor after Cleansing No No -Primary Dressing Applied Aquacel AG 4x4 -Primary Dressing Applied Aquacel AG 4x4, Silicone Border Foam 4x4 -Primary Dressing Covered/Secured with Dry Gauze & Roll Gauze, Secured with Tape -Aquacel AG 4x4 1 1 -Silicone Border Foam 4x4 1 #1 Right Lower Leg -Ulcer Cleansing Rinsed/ Rinsed/ Irrigated with Irrigated with Saline Saline -Foul Odor after Cleansing No No -Primary Dressing Applied Aquacel AG 4x4 -Other Dressing aquacel ag -Primary Dressing Covered/Secured with Dry Gauze & Dry Gauze, Roll Gauze, Secured with Secured with Tape Tape -Aquacel AG 4x4 1 -Wound Comment(s) pt to resume gentamyicin oint at home Right -Tubular Bandage Single Layer Single Layer -Size of Tubigrip Used Size E Size D -Size D ($) 1 -Size E ($) 1 Treatment Response Procedure Procedure Tolerated Well Tolerated Well Pain Scale: 0-10 Numeric Is Patient Pain Free? 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 Will refer her to Infectious Disease given these closely recurrent infections with varying cultures and odd presentation of focal small tunnel with purulent/serous drainage progressive to open wound on the R anterior ankle. Question possible osteomyelitis though no inciting wound in the anterior ankle (just the initial wound to the lateral calf), unremarkable CBC/BMP, and unable to truly evaluate with MRI due to her pacemaker and reported metal amol in her L thigh. For wound care, will apply gentamicin to the wound 2-3 times daily, cover with aquacel followed by ABD pad as needed for drainage and kerlix wrap. She has very sensitive skin, will utilize silicone tape or tape only dressings and avoid taping skin. Change twice daily or more often as needed to keep clean and dry. With dressing changes, wash the area with antibacterial soap and water, pat gently to dry well. No submerging the wound in water such as to take a bath, go swimming, etc. Will continue medium strength single layer tubigrip for compression. Cultures are having to be sent out to [facility] due to low staffing/supplies at [facility] lab so results will take longer than usual. I will call with adjustments to antibiotics regimen as indicated by C&S. Return to the clinic in 2 weeks to see me as I will be out next week but please call for a courtesy visit if any concerns/worsening in the meantime.
== END 2024-06-30 23:59 | disposition home or self-care (01) ==
LOC: WC 13:00
PROVIDERS: PCP Nurse Practitioner Family; Referring Provider Nurse Practitioner Family; Visit Provider Physician Assistant
DX: I87.2 Venous insufficiency (chronic) (peripheral) (principal); L97.912 Non-pressure chronic ulcer of unspecified part of right lower leg with fat layer exposed; Z79.01 Long term (current) use of anticoagulants; Z95.0 Presence of cardiac pacemaker
CPT/HCPCS: 11042; 36415; 73590; 73600; 73700; 80048; 84550; 85025

== ENCOUNTER 2024-06-30 09:07 | Outpatient (RCR) | payer MEDICARE, SELFPAY ==
[2024-05-31 04:18] VITALS: BMI 23.6
[2024-06-08 15:39] LABS: International Normalized Ratio 2.4; Prothrombin Time (Protime)PT. 26.3 SECONDS (11.7-14.9)
[2024-06-30 09:56] LABS: International Normalized Ratio 1.5; Prothrombin Time (Protime)PT. 18.1 SECONDS (11.7-14.9)
== END 2024-06-30 18:00 | disposition home or self-care (01) ==
LOC: LAB 09:07
PROVIDERS: Family Provider Family Medicine; PCP Nurse Practitioner Family; Referring Provider Internal Medicine Cardiovascular Disease; Visit Provider Internal Medicine Cardiovascular Disease
DX: I48.0 Paroxysmal atrial fibrillation (principal); Z79.01 Long term (current) use of anticoagulants
CPT/HCPCS: 36415; 85610

== ENCOUNTER 2024-07-27 13:00 | Outpatient (RCR) | payer MEDICARE, SELFPAY ==
[2024-07-01 00:42] VITALS: BP 130/49; PULSE 74; RESP 18; TEMP 36
[2024-07-06 13:14] VITALS: BP 121/63; PULSE 67; RESP 16
--- NOTE | 2024-07-06 14:06 | PN.PCM_ITS ---
History of Present Illness Date of Service: 07/06/24 Chief Complaint: R posterolateral calf wound History of Wound: Jhoana Nieves is a 78 y/o female who presents today for evaluation and management of a right posterolateral calf wound. She is accompanied to her appointment today by two family members. She is known to me from the vascular office where I have seen her for suspected venous insufficiency where I ordered venous reflux study which she is not scheduled to complete until 04/19. She reports that shortly after I saw her in the office in December, she developed this R calf wound. She thinks that she may have bumped this area of her leg. At home, she has been applying B&W ointment and other various herb salves without much improvement. She was started on some antibiotic by her PCP which she did not tolerate well, she cannot recall what antibiotic that was but she thinks she still has the bottle at home. She recently was seen for this wound in urgent care 03/20 at which time cultures were obtained. She was empirically started on Amoxicillin 875mg BID x 14 days which she is tolerating so far. The cultures ultimately grew lerma-sensitive E. coli. She notes mild to moderate drainage from the wound. She denies any spreading erythema, foul odor, acutely worsened edema, N/V, F/C. She is not diabetic. She does not smoke. Medical history is otherwise significant for A-fib (chronically anticoagulated with Coumadin), sick sinus syndrome status post pacemaker placement (2008). Subjective Subjective She has been taking the cefuroxime as prescribed. She reports the pain has improved and the redness seems to be improving as well. Culture results had to be sent out due to [facility] lab shortages so they took longer than usual to get back. It appears that she grew staph haemolyticus and another more obscure bacterium; the staph species was quite resistant. She already has an appointment next week with ID Dr. Canas. She has not had any constitutional symptoms. Objective Data Objective Data Vital Signs: Vital Signs Temp Pulse Resp BP O2 Del Method 96.8 F L 67 16 121/63 H Room Air 07/01/24 00:42 07/06/24 13:14 07/06/24 13:14 07/06/24 13:14 07/06/24 13:14 Oxygen Delivery Method Room Air Charges/Coding Procedures Integumentary 111xxx-113xx: 03403 Jazzy subq tissue 20 sq cm/< Physical Exam Const alert, oriented x3 and no apparent distress General Appearance: cooperative and comfortable HEENT normocephalic, hearing grossly normal bilaterally, external ears normal and external nose normal Eyes EOMs intact bilaterally General Eye: normal appearance of both eyes Neck General: normal visual inspection and trachea midline Resp normal respiratory effort, normal air movement, no retractions and no use of accessory muscles Effort and Inspection: able to speak in complete sentences Cardio regular rate and regular rhythm Extremity General Extremity: edema bilateral Peripheral Pulses: Yes dorsalis pedis pulses present Skin Wounds: wounds noted Wound Narrative: Right posterolateral calf wound which has nearly completely epithelialized with only smaller opening remaining. No purulent or other drainage able to be expressed. No new erythema, excess warmth, focal edema. What had previously just been a very small opening/tunnel on the R ankle has devolved to a larger open wound with significant slough. This is stable in size this week, no further enlargement from last visit. There is reduced erythema proximally and distally, but some persistent erythema/mild warmth around the wound. There is some induration still but does seem less than last visit. Probes to connective tissue. Not able to express any purulent drainage. Neuro oriented x3, CN's II-XII intact bilaterally, moves all extremities, no focal motor deficits and no sensory deficits noted Psych mental status grossly normal Attitude: calm and engaged Activity / Motor Behavior: appropriate eye contact Speech: normal speech Mood & Affect: euthymic mood Judgement: judgement good Debridement Note Debridement Note Wound debrided: Right anterior calf wound Laterality: Right Type of Debridement: Excisional debridement Anesthesia Used: 4% Lidocaine Solution and 5% Lidocaine Gel Depth: Down to and including healthy tissue and in the subcutaneous layer Percentage of wound debrided: 100 Instrument Used: 3mm curette Tissue Removed: slough, devitalized tissue Severity: Fat Layer Exposed Amount of bleeding with debridement: Mild Bleeding Controlled with: Pressure Patient tolerated procedure: Patient tolerated procedure well Post-Debridement Measurements and Additional Note: Post-Debridement Measurements/Treatment CELY - Nurse 1 - General Ulcer Assessment Start: 07/06/24 13:10 Freq: Status: Active Protocol: JAIME Activity Type Activity Date Activity User E-sign Co-sign Detail Recorded Client Recorded Date Recorded By Document 07/06/24 13:14 [id number] 07/06/24 13:21 07/06/24 13:14 WC - Today's Visit Information Type of service Follow-up Visit (Physician/TRA[employer]PATCH[employer]PERVISOR ) Arrival Mode Ambulatory Accompanied by daughter Patient Identification Verified (Name & Yes ) Vital Signs Pulse Rate (60-100) 67 Pulse Location Monitor Respiratory Rate (12-18) 16 Respiratory rate source Observation Oxygen Delivery Method Room Air Blood Pressure (90/60-120/80) 121/63 H Blood Pressure Mean (mm Hg) 82 Source Monitor Position Semi-Fowlers Blood Pressure Location Right Arm History Since Last Visit- (Skip if this is Patient's initial visit) Have you changed medications since your No last visit? Any new allergies or adverse reactions No Had a fall/change in ADL's that may No increase risk of falls Signs or symptoms of abuse and/or No neglect since last visit Have you been in the hospital since your No last visit? Has dressing in place as prescribed Yes Has compression in place as prescribed Yes Has offloadiing in place as prescribed N/A Experienced any changes in pain level or No management Left Footwear Regular Shoe Right Footwear Regular Shoe Pain Scale: 0-10 Numeric Is Patient Pain Free? No RLE -Description Burning -Intensity 3 -Alleviating Factors/Interventions Inactivity/ Resting WC - Nurse 1 - General Ulcer Measurement Start: 07/06/24 13:10 Freq: Status: Active Protocol: Activity Type Activity Date Activity User E-sign Co-sign Detail Recorded Client Recorded Date Recorded By Document 07/06/24 13:14 [id number] 07/06/24 13:21 07/06/24 13:14 Wound Center Nurse 1 #2 Right superior ankle CLUSTER -Current Size (cm) - Length 3.3 -Current Size (cm) - Width 2 -Current Size (cm) - Depth 0.3 -Total Square Cm 6.6 -Exudate Amt Medium -Exudate Type Serosanguineous -Wound Margin Distinct, Outline Attached -Granulation Amt Small (1-33%) -Granulation Quality Candler-Mcafee,Red -Necrosis Amt Large (67-100%) -Necrotic Tissue Type Adherent Slough -Texture (Alpa-wound Skin Appearance) Assessed, Localized Edema -Moisture (Alpa-wound Skin Appearance) Assessed -Color (Alpa-wound Skin Appearance) Assessed, Erythema, Hemosiderin Staining -Temperature (Alpa-wound Skin No Abnormality Appearance) (Pt Warm) -Tenderness on Palpation (Alpa-wound No Skin Appearance) -Ulcer Cleansing Rinsed/ Irrigated with Saline -Foul Odor after Cleansing No -Anesthetic Used 5% Lidocaine Gel #1 Right lat Lower Leg pOSTERIOR -Current Size (cm) - Length 0.2 -Current Size (cm) - Width 0.3 -Current Size (cm) - Depth 0.2 -Total Square Cm 0.06 -Exudate Amt Small -Exudate Type Serosanguineous -Wound Margin Distinct, Outline Attached -Granulation Amt Small (1-33%) -Granulation Quality Candler-[place]cafee -Necrosis Amt Small (1-33%) -Necrotic Tissue Type Adherent Slough -Texture (Alpa-wound Skin Appearance) Assessed, Localized Edema ,Scarring -Moisture (Alpa-wound Skin Appearance) Assessed -Color (Alpa-wound Skin Appearance) Assessed -Temperature (Alpa-wound Skin No Abnormality Appearance) (Pt Warm) -Tenderness on Palpation (Alpa-wound No Skin Appearance) -Ulcer Cleansing Rinsed/ Irrigated with Saline -Foul Odor after Cleansing No -Anesthetic Used 5% Lidocaine Gel Right Calf (cm) 33 Right Ankle (cm) 23 WC - Nurse 2 - General Ulcer CM Notes Start: 07/06/24 13:10 Freq: Status: Active Protocol: Activity Type Activity Date Activity User E-sign Co-sign Detail Recorded Client Recorded Date Recorded By Document 07/06/24 13:36 [id number] 07/06/24 13:45 GM 07/06/24 13:36 Wound Center Nurse 2 #2 Right superior ankle CLUSTER -Time 13:37 -Correct Patient Yes -Correct Side, Site, Position Yes -Correct Procedure Yes -Procedure Performed Yes -Type of Procedure Debridement -Clinical Debridement Subcutaneous -Tissue Removed Subcutaneous -Post Debridement (cm) - Length 3.2 -Post Debridement (cm) - Width 2.0 -Post Debridement (cm) - Depth 0.4 -Total Square (Post) (cm) 6.40 -Area of Debridement (cm) - Length 3.2 -Area of Debridement (cm) - Width 2.0 -Total Square (Area) (cm) 6.40 -Tunneling No -Undermining/Tunneling No -Circular Undermining No -Wound/Ulcer Outcome Not Healed -Ulcer Cleansing Rinsed/ Irrigated with Saline -Foul Odor after Cleansing No -Bioengineered Tissue No -Bleeding Controlled with Pressure -Treatment Response Procedure Tolerated Well -Debridement - Subq, 1st 20sq cm Yes #1 Right lat Lower Leg pOSTERIOR -Time 13:37 -Correct Patient Yes -Correct Side, Site, Position Yes -Correct Procedure Yes -Procedure Performed Yes -Type of Procedure Debridement -Clinical Debridement Subcutaneous -Tissue Removed Subcutaneous -Post Debridement (cm) - Length 0.3 -Post Debridement (cm) - Width 0.3 -Post Debridement (cm) - Depth 0.2 -Total Square (Post) (cm) 0.09 -Area of Debridement (cm) - Length 0.3 -Area of Debridement (cm) - Width 0.3 -Total Square (Area) (cm) 0.09 -Tunneling No -Undermining/Tunneling No -Circular Undermining No -Wound/Ulcer Outcome Not Healed -Ulcer Cleansing Rinsed/ Irrigated with Saline -Foul Odor after Cleansing No -Bioengineered Tissue No -Bleeding Controlled with Pressure -Treatment Response Procedure Tolerated Well -Debridement - Subq, 1st 20sq cm No Pain Scale: 0-10 Numeric Is Patient Pain Free? Yes - Nurse 3 - General Ulcer D/C NN Start: 07/06/24 13:10 Freq: Status: Active Protocol: Activity Type Activity Date Activity User E-sign Co-sign Detail Recorded Client Recorded Date Recorded By Document 07/06/24 14:02 DL [id number] 07/06/24 14:05 DL 07/06/24 14:02 Wound Care Center Nurse 3 #2 Right superior ankle CLUSTER -Ulcer Cleansing Rinsed/ Irrigated with Saline -Foul Odor after Cleansing No -Primary Dressing Applied Aquacel AG 4x4, Silicone Border Foam 4x4 -Aquacel AG 4x4 1 -Silicone Border Foam 4x4 1 -Silicone Border Foam 6x6 1 #1 Right lat Lower Leg pOSTERIOR -Ulcer Cleansing Rinsed/ Irrigated with Saline -Foul Odor after Cleansing No -Primary Dressing Applied Silicone Border Foam 4x4 -Other Dressing AQAUCEL AG -Silicone Border Foam 4x4 1 Right -Tubular Bandage Single Layer -Size of Tubigrip Used Size D -Size D ($) 1 Treatment Response Procedure Tolerated Well Pain Scale: 0-10 Numeric Is Patient Pain Free? Yes - Visit Discharge Discharge Condition Stable Ambulatory Status Ambulatory Transportation Private Auto Additional Wound Wound debrided: R posterolateral calf wound Laterality: Right Type of Debridement: Excisional debridement Anesthesia Used: 5% Lidocaine Gel Depth: Down to and including healthy tissue and in the subcutaneous layer Percentage of wound debrided: 100 Instrument Used: 3mm curette Tissue Removed: slough Severity: Fat Layer Exposed Amount of bleeding with debridement: None Bleeding Controlled with: Pressure Assessment/Plan Assessment/Plan (1) Ulcer of right lower extremity: CODE(S): L97.919 - Non-pressure chronic ulcer of unspecified part of right lower leg with unspecified severity PLAN: 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 As she has clinically had some improvement, will continue the cefuroxime this week as she sees ID next week and will defer to their judgement as to any antibiotic changes from there. Recent culture and sensitivity results are to be forwarded on to ID. I referred to ID given these closely recurrent infections with varying cultures and odd presentation of focal small tunnel with purulent/serous drainage progressive to open wound on the R anterior ankle. Question possible osteomyelitis though no inciting wound in the anterior ankle (just the initial wound to the lateral calf), unremarkable CBC/BMP, and unable to truly evaluate with MRI due to her pacemaker and reported metal amol in her L thigh. Will appreciate ID input. Could consider podiatry eval as well. For wound care, will apply silvercell followed by ABD pad as needed for drainage and kerlix wrap. She has very sensitive skin, will utilize silicone tape or tape only dressings and avoid taping skin. Change twice daily or more often as needed to keep clean and dry. With dressing changes, wash the area with antibacterial soap and water, pat gently to dry well. No submerging the wound in water such as to take a bath, go swimming, etc. Will continue medium strength single layer tubigrip for compression. She sees ID here next Wednesday, will see if perhaps Juanita can see her as a courtesy visit that day as well to reduce patient's transportation burden. I will plan to see her back in 2 weeks.
[2024-07-12 15:42] VITALS: RESP 18; TEMP 36.7
--- NOTE | 2024-07-12 16:25 | PN.PCM_ITS ---
History of Present Illness Date of Service: 07/12/24 Chief Complaint: R posterolateral calf wound History of Wound: Jhoana Nieves is a 78 y/o female who presents today for evaluation and management of a right posterolateral calf wound. She is accompanied to her appointment today by two family members. She is known to me from the vascular office where I have seen her for suspected venous insufficiency where I ordered venous reflux study which she is not scheduled to complete until 04/19. She reports that shortly after I saw her in the office in December, she developed this R calf wound. She thinks that she may have bumped this area of her leg. At home, she has been applying B&W ointment and other various herb salves without much improvement. She was started on some antibiotic by her PCP which she did not tolerate well, she cannot recall what antibiotic that was but she thinks she still has the bottle at home. She recently was seen for this wound in urgent care 03/20 at which time cultures were obtained. She was empirically started on Amoxicillin 875mg BID x 14 days which she is tolerating so far. The cultures ultimately grew lerma-sensitive E. coli. She notes mild to moderate drainage from the wound. She denies any spreading erythema, foul odor, acutely worsened edema, N/V, F/C. She is not diabetic. She does not smoke. Medical history is otherwise significant for A-fib (chronically anticoagulated with Coumadin), sick sinus syndrome status post pacemaker placement (2008). Progress of Wound: Courtesy visit today for [facility]. Right anterior calf wound is healed today. The right posterolateral calf ulcer cluster is measuring smaller. No erythema present. She saw Dr. Canas, ALEXIS today. She is to continue on the Cefuroxime as prescribed. She states she has been wearing her compression. Objective Data Objective Data Vital Signs: Vital Signs Temp Pulse Resp BP O2 Del Method 98.0 F 67 18 121/63 H Room Air 07/12/24 15:42 07/06/24 13:14 07/12/24 15:42 07/06/24 13:14 07/12/24 15:42 Oxygen Delivery Method Room Air Debridement Note Debridement Note Wound debrided: R posterolateral calf ulcer cluster Laterality: Right Type of Debridement: Excisional debridement Anesthesia Used: 5% Lidocaine Gel Depth: Down to and including healthy tissue and in the subcutaneous layer Percentage of wound debrided: 100 Instrument Used: 3mm curette Tissue Removed: Non viable tissue and slough Severity: Fat Layer Exposed Amount of bleeding with debridement: Mild Bleeding Controlled with: Pressure Patient tolerated procedure: Patient tolerated procedure well Post-Debridement Measurements and Additional Note: Post-Debridement Measurements/Treatment - Nurse 1 - General Ulcer Assessment Start: 07/06/24 13:10 Freq: Status: Active Protocol: JAIME Activity Type Activity Date Activity User E-sign Co-sign Detail Recorded Client Recorded Date Recorded By Document 07/06/24 13:14 KW [id number] 07/06/24 13:21 KW Document 07/12/24 15:42 KW [id number] 07/12/24 15:47 KW 07/06/24 07/12/24 13:14 15:42 - Today's Visit Information Type of service Follow-up Visit Follow-up Visit (Physician/ROBOTICS ENGINEER (Physician/ROBOTICS ENGINEER ) ) Arrival Mode Ambulatory Ambulatory Accompanied by daughter family Patient Identification Verified (Name & Yes Yes ) Vital Signs Temperature (97.8 F-99.1 F) 98.0 F Temperature Source Temporal Pulse Rate (60-100) 67 Pulse Location Monitor Respiratory Rate (12-18) 16 18 Respiratory rate source Observation Observation Oxygen Delivery Method Room Air Room Air Blood Pressure (90/60-120/80) 121/63 H Blood Pressure Mean (mm Hg) 82 Source Monitor Position Semi-Fowlers Blood Pressure Location Right Arm History Since Last Visit- (Skip if this is Patient's initial visit) Have you changed medications since your No No last visit? Any new allergies or adverse reactions No No Had a fall/change in ADL's that may No No increase risk of falls Signs or symptoms of abuse and/or No No neglect since last visit Have you been in the hospital since your No No last visit? Has dressing in place as prescribed Yes Yes Has compression in place as prescribed Yes Yes Has offloadiing in place as prescribed N/A N/A Experienced any changes in pain level or No No management Left Footwear Regular Shoe Regular Shoe Right Footwear Regular Shoe Regular Shoe Pain Scale: 0-10 Numeric Is Patient Pain Free? No Yes RLE -Description Burning -Intensity 3 -Alleviating Factors/Interventions Inactivity/ Resting - Nurse 1 - General Ulcer Measurement Start: 07/06/24 13:10 Freq: Status: Active Protocol: Activity Type Activity Date Activity User E-sign Co-sign Detail Recorded Client Recorded Date Recorded By Document 07/06/24 13:14 KW [id number] 07/06/24 13:21 KW Document 07/12/24 15:42 KW [id number] 07/12/24 15:47 KW 07/06/24 07/12/24 13:14 15:42 Wound Center Nurse 1 #2 Right inferior ankle CLUSTER -Current Size (cm) - Length 3.3 3.2 -Current Size (cm) - Width 2 1.8 -Current Size (cm) - Depth 0.3 0.2 -Total Square Cm 6.6 5.76 -Exudate Amt Medium Small -Exudate Type Serosanguineous Serosanguineous -Wound Margin Distinct, Distinct, Outline Outline Attached Attached -Granulation Amt Small (1-33%) Small (1-33%) -Granulation Quality Andrew,Red Andrew -Necrosis Amt Large (67-100%) Large (67-100%) -Necrotic Tissue Type Adherent Slough Adherent Slough -Texture (Alpa-wound Skin Appearance) Assessed, Assessed Localized Edema -Moisture (Alpa-wound Skin Appearance) Assessed Assessed -Color (Alpa-wound Skin Appearance) Assessed, Assessed, Erythema, Erythema Hemosiderin Staining -Temperature (Alpa-wound Skin No Abnormality No Abnormality Appearance) (Pt Warm) (Pt Warm) -Tenderness on Palpation (Alpa-wound No No Skin Appearance) -Ulcer Cleansing Rinsed/ Rinsed/ Irrigated with Irrigated with Saline Saline -Foul Odor after Cleansing No No -Anesthetic Used 5% Lidocaine 5% Lidocaine Gel Gel #1 Right lat Lower Leg pOSTERIOR -Current Size (cm) - Length 0.2 0 -Current Size (cm) - Width 0.3 0 -Current Size (cm) - Depth 0.2 0 -Total Square Cm 0.06 0 -Exudate Amt Small -Exudate Type Serosanguineous -Wound Margin Distinct, Outline Attached -Granulation Amt Small (1-33%) -Granulation Quality Andrew -Necrosis Amt Small (1-33%) -Necrotic Tissue Type Adherent Slough -Texture (Alpa-wound Skin Appearance) Assessed, Localized Edema ,Scarring -Moisture (Alpa-wound Skin Appearance) Assessed -Color (Alpa-wound Skin Appearance) Assessed -Temperature (Alpa-wound Skin No Abnormality Appearance) (Pt Warm) -Tenderness on Palpation (Alpa-wound No Skin Appearance) -Ulcer Cleansing Rinsed/ Irrigated with Saline -Foul Odor after Cleansing No -Anesthetic Used 5% Lidocaine Gel Right Calf (cm) 33 Right Ankle (cm) 23 WC - Nurse 2 - General Ulcer CM Notes Start: 07/06/24 13:10 Freq: Status: Active Protocol: Activity Type Activity Date Activity User E-sign Co-sign Detail Recorded Client Recorded Date Recorded By Document 07/06/24 13:36 [id number] 07/06/24 13:45 GM Document 07/12/24 16:05 [id number] 07/12/24 16:11 GM 07/06/24 07/12/24 13:36 16:05 Wound Center Nurse 2 #2 Right inferior ankle CLUSTER -Time 13:37 16:05 -Correct Patient Yes Yes -Correct Side, Site, Position Yes Yes -Correct Procedure Yes Yes -Procedure Performed Yes Yes -Type of Procedure Debridement Debridement -Clinical Debridement Subcutaneous Subcutaneous -Tissue Removed Subcutaneous Subcutaneous -Post Debridement (cm) - Length 3.2 3.0 -Post Debridement (cm) - Width 2.0 1.8 -Post Debridement (cm) - Depth 0.4 0.3 -Total Square (Post) (cm) 6.40 5.40 -Area of Debridement (cm) - Length 3.2 3.0 -Area of Debridement (cm) - Width 2.0 1.8 -Total Square (Area) (cm) 6.40 5.40 -Tunneling No No -Undermining/Tunneling No No -Circular Undermining No No -Wound/Ulcer Outcome Not Healed Not Healed -Ulcer Cleansing Rinsed/ Not Cleansed Irrigated with Saline -Foul Odor after Cleansing No No -Bioengineered Tissue No No -Bleeding Controlled with Pressure Pressure -Treatment Response Procedure Tolerated Well -Debridement - Subq, 1st 20sq cm Yes Yes #1 Right lat Lower Leg pOSTERIOR -Time 13:37 -Correct Patient Yes -Correct Side, Site, Position Yes -Correct Procedure Yes -Procedure Performed Yes -Type of Procedure Debridement -Clinical Debridement Subcutaneous -Tissue Removed Subcutaneous -Post Debridement (cm) - Length 0.3 -Post Debridement (cm) - Width 0.3 -Post Debridement (cm) - Depth 0.2 -Total Square (Post) (cm) 0.09 -Area of Debridement (cm) - Length 0.3 -Area of Debridement (cm) - Width 0.3 -Total Square (Area) (cm) 0.09 -Tunneling No -Undermining/Tunneling No -Circular Undermining No -Wound/Ulcer Outcome Not Healed -Ulcer Cleansing Rinsed/ Irrigated with Saline -Foul Odor after Cleansing No -Bioengineered Tissue No -Bleeding Controlled with Pressure -Treatment Response Procedure Tolerated Well -Debridement - Subq, 1st 20sq cm No Pain Scale: 0-10 Numeric Is Patient Pain Free? Yes Yes - Nurse 3 - General Ulcer D/C NN Start: 07/06/24 13:10 Freq: Status: Active Protocol: Activity Type Activity Date Activity User E-sign Co-sign Detail Recorded Client Recorded Date Recorded By Document 07/06/24 14:02 DL [id number] 07/06/24 14:05 DL 07/06/24 14:02 Wound Care Center Nurse 3 #2 Right inferior ankle CLUSTER -Ulcer Cleansing Rinsed/ Irrigated with Saline -Foul Odor after Cleansing No -Primary Dressing Applied Aquacel AG 4x4, Silicone Border Foam 4x4 -Aquacel AG 4x4 1 -Silicone Border Foam 4x4 1 -Silicone Border Foam 6x6 1 #1 Right lat Lower Leg pOSTERIOR -Ulcer Cleansing Rinsed/ Irrigated with Saline -Foul Odor after Cleansing No -Primary Dressing Applied Silicone Border Foam 4x4 -Other Dressing AQAUCEL AG -Silicone Border Foam 4x4 1 Right -Tubular Bandage Single Layer -Size of Tubigrip Used Size D -Size D ($) 1 Treatment Response Procedure Tolerated Well Pain Scale: 0-10 Numeric Is Patient Pain Free? 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 Right proximal lateral leg wound has healed . Encouraged patient to massage Patient saw ID today and was instructed (per patient) to continue her Cefuroxime as prescribed. She states that she has another week of antibiotics. . For wound care, will apply silvercell followed by ABD pad as needed for drainage and kerlix wrap. She has very sensitive skin, will utilize silicone tape or tape only dressings and avoid taping skin. Change twice daily or more often as needed to keep clean and dry. With dressing changes, wash the area with antibacterial soap and water, pat gently to dry well. No submerging the wound in water such as to take a bath, go swimming, etc. Will continue medium strength single layer tubigrip for compression. She sees ID here next Wednesday, will see if perhaps Juanita can see her as a courtesy visit that day as well to reduce patient's transportation burden. I will plan to see her back in 2 weeks.
--- NOTE | 2024-07-12 17:09 | PCM.CONS.GEN ---
Assessment & Plan Assessment/Plan (1) Cellulitis of right lower leg: PLAN: Most recent wound cx with MSSE and strep. Reviewed labs and imaging. Overall much improved, recommend she complete current course of cefuroxime. Low suspicion for osteo. Return to clinic as needed, will send letter to [facility]. Please call with any questions. (2) Ulcer of right lower extremity: HPI Consult Data Date of Consult: 07/12/24 HPI Narrative Reason for Consultation: wound infection HPI Narrative: JC GROSS, is a 78 F with h/o afib, CHF, pacer in place, follows at wound center for R baird ulcer. Present since 04/2024, no known inciting event. Developed progressive redness, swelling, pain, drainage. Wound cx done, now on 3rd course of abx with cefuroxime. Reports symptoms much improved. Still with ulcer, but inflammation nearly resolved. No fever, no n/v/d. Full ROS performed and neg except as noted above. [facility], [facility] Medical History Mobitz type 2 second degree atrioventricular block Sick sinus syndrome due to SA node dysfunction Chronic systolic (congestive) heart failure Paroxysmal atrial fibrillation Sinoatrial node dysfunction FH: sudden cardiac (SCD) Nonischemic cardiomyopathy Elevated troponin Acute calculous cholecystitis Home Medications ?Medication ?Instructions ?Recorded ?Last Taken ?Type calcium 200 mg (as 1 tab PO DAILY 01/23/20 Unknown History citrate)-vitamin D3 6.25 mcg (250 unit) tablet magnesium oxide 200 mg PO DAILY 01/23/20 Unknown History warfarin 2 mg tablet 2 mg PO .COMPLEX #90 tabs 11/04/22 Unknown Rx ramipril 2.5 mg capsule 2.5 mg PO DAILY #90 caps 08/23/23 Unknown Rx warfarin 5 mg tablet 5 mg PO DAILY #90 TABLETS 08/23/23 Unknown Rx gentamicin 0.1 % topical ointment 1 applic topical TID #30 grams 05/18/24 Unknown Rx cefuroxime axetil 500 mg tablet 500 mg PO BID 14 days #28 tabs 07/06/24 Unknown Rx Allergy/AdvReac Type Severity Reaction Status Date / Time amoxicillin (From Augmentin) Allergy Rash Verified 05/18/24 13:42 clavulanic acid (From Allergy Rash Verified 12/19/24 13:42 Augmentin) Family History Brother Sudden cardiac Brother Myocardial infarction, Onset Age: 40 Heart disease Sister Hypertension Surgical History History of left heart catheterization (05/27/16) Presence of permanent cardiac pacemaker (2008) Social History Smoking Status: Never smoker alcohol intake: never substance use type: does not use caffeine: Yes Type: coffee what type of physical activity do you participate in: bicycling frequency: daily duration: < 15 minutes/day seatbelt use: always do you feel safe at home: Yes Physical Exam Const alert, oriented x3 and no apparent distress General Appearance: cooperative HEENT normocephalic and head/scalp atraumatic Eyes PERRL and EOMs intact bilaterally Neck supple and No nodes Resp normal air movement and clear to auscultation bilaterally Cardio regular rate and regular rhythm GI soft to palpation, non-tender and non-distended Extremity Extremity Narrative: mild BLE edema Skin Skin Narrative: R baird small ulcers, faint surrounding erythema. No warmth or swelling. Neuro CN's II-XII intact bilaterally Lab / Micro Data Attestation: I reviewed the patient's lab results.
[2024-07-20 13:09] VITALS: BP 116/29; PULSE 66; RESP 16; TEMP 36.4
--- NOTE | 2024-07-20 16:59 | PN.PCM_ITS ---
History of Present Illness Date of Service: 07/20/24 Chief Complaint: R posterolateral calf wound History of Wound: Jhoana Nieves is a 78 y/o female who presents today for evaluation and management of a right posterolateral calf wound. She is accompanied to her appointment today by two family members. She is known to me from the vascular office where I have seen her for suspected venous insufficiency where I ordered venous reflux study which she is not scheduled to complete until 04/19. She reports that shortly after I saw her in the office in December, she developed this R calf wound. She thinks that she may have bumped this area of her leg. At home, she has been applying B&W ointment and other various herb salves without much improvement. She was started on some antibiotic by her PCP which she did not tolerate well, she cannot recall what antibiotic that was but she thinks she still has the bottle at home. She recently was seen for this wound in urgent care 03/20 at which time cultures were obtained. She was empirically started on Amoxicillin 875mg BID x 14 days which she is tolerating so far. The cultures ultimately grew lerma-sensitive E. coli. She notes mild to moderate drainage from the wound. She denies any spreading erythema, foul odor, acutely worsened edema, N/V, F/C. She is not diabetic. She does not smoke. Medical history is otherwise significant for A-fib (chronically anticoagulated with Coumadin), sick sinus syndrome status post pacemaker placement (2008). Subjective Subjective She has been doing well over the last week. She saw ID last week who recommended she continue current antibiotic regimen, complete as currently prescribed. She saw Juanita last week for courtesy visit. Objective Data Objective Data Vital Signs: Vital Signs Temp Pulse Resp BP O2 Del Method 97.5 F L 66 16 116/29 L Room Air 07/20/24 13:09 07/20/24 13:09 07/20/24 13:09 07/20/24 13:09 07/20/24 13:09 Oxygen Delivery Method Room Air Charges/Coding Procedures Integumentary 111xxx-113xx: [id number] Jazzy musc/fascia 20 sq cm/< Physical Exam Const alert, oriented x3 and no apparent distress General Appearance: cooperative and comfortable HEENT normocephalic, hearing grossly normal bilaterally, external ears normal and external nose normal Eyes EOMs intact bilaterally General Eye: normal appearance of both eyes Neck General: normal visual inspection and trachea midline Resp normal respiratory effort, normal air movement, no retractions and no use of accessory muscles Effort and Inspection: able to speak in complete sentences Cardio regular rate and regular rhythm Extremity General Extremity: edema bilateral Peripheral Pulses: Yes dorsalis pedis pulses present Skin Wounds: wounds noted Wound Narrative: Right posterolateral calf wound which is healed. R anterior baird/ankle wound cluster, proximal portion is to the subcutaneous tissue, distal portion is to the connective tissue. Granulation tissue at the base, slough but no necrotic tissue. Mild reactive erythema around the wound edges without excess warmth, focal edema, foul odor, significant drainage. Overall, induration, erythema, and edema through the lower leg is much improved. Neuro oriented x3, CN's II-XII intact bilaterally, moves all extremities, no focal motor deficits and no sensory deficits noted Psych mental status grossly normal Attitude: calm and engaged Activity / Motor Behavior: appropriate eye contact Speech: normal speech Mood & Affect: euthymic mood Judgement: judgement good Debridement Note Debridement Note Wound debrided: Right anterior calf wound Laterality: Right Type of Debridement: Excisional debridement Anesthesia Used: 4% Lidocaine Solution and 5% Lidocaine Gel Depth: Down to and including healthy tissue and in the subcutaneous layer Percentage of wound debrided: 100 Instrument Used: 3mm curette Tissue Removed: slough, devitalized tissue Severity: Fat Layer Exposed Amount of bleeding with debridement: Mild Bleeding Controlled with: Pressure Patient tolerated procedure: Patient tolerated procedure well Post-Debridement Measurements and Additional Note: Post-Debridement Measurements/Treatment - Nurse 1 - General Ulcer Assessment Start: 07/06/24 13:10 Freq: Status: Active Protocol: JAIME Activity Type Activity Date Activity User E-sign Co-sign Detail Recorded Client Recorded Date Recorded By Document 07/06/24 13:14 KW [id number] 07/06/24 13:21 KW Document 07/12/24 15:42 KW [id number] 07/12/24 15:47 KW Document 07/20/24 13:09 [facility] [id number] 07/20/24 13:18 BM 07/06/24 07/12/24 07/20/24 13:14 15:42 13:09 - Today's Visit Information Type of service Follow-up Visit Follow-up Visit Follow-up Visit (Physician/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 (Physician/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 (Physician/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 ) ) ) Arrival Mode Ambulatory Ambulatory Ambulatory Transfer Assistance None Accompanied by daughter family Patient Identification Verified (Name & Yes Yes Yes ) Patient Requires Transmission-Based No Precautions Vital Signs Temperature (97.8 F-99.1 F) 98.0 F 97.5 F L Temperature Source Temporal Temporal Pulse Rate (60-100) 67 66 Pulse Location Monitor Monitor Respiratory Rate (12-18) 16 18 16 Respiratory rate source Observation Observation Observation Oxygen Delivery Method Room Air Room Air Room Air Blood Pressure (90/60-120/80) 121/63 H 116/29 L Blood Pressure Mean (mm Hg) 82 58 Source Monitor Monitor Position Semi-Fowlers Sitting Blood Pressure Location Right Arm Right Arm History Since Last Visit- (Skip if this is Patient's initial visit) Have you changed medications since your No No No last visit? Any new allergies or adverse reactions No No No Had a fall/change in ADL's that may No No No increase risk of falls Signs or symptoms of abuse and/or No No No neglect since last visit Have you been in the hospital since your No No No last visit? Has dressing in place as prescribed Yes Yes Yes Has compression in place as prescribed Yes Yes N/A Has offloadiing in place as prescribed N/A N/A N/A Experienced any changes in pain level or No No No management Left Footwear Regular Shoe Regular Shoe Regular Shoe Right Footwear Regular Shoe Regular Shoe Regular Shoe Pain Scale: 0-10 Numeric Is Patient Pain Free? No Yes Yes RLE -Description Burning -Intensity 3 -Alleviating Factors/Interventions Inactivity/ Resting WC - Nurse 1 - General Ulcer Measurement Start: 07/06/24 13:10 Freq: Status: Active Protocol: Activity Type Activity Date Activity User E-sign Co-sign Detail Recorded Client Recorded Date Recorded By Document 07/06/24 13:14 KW [id number] 07/06/24 13:21 KW Document 07/12/24 15:42 KW [id number] 07/12/24 15:47 KW Document 07/20/24 13:09 BM [id number] 07/20/24 13:18 BMF 07/06/24 07/12/24 07/20/24 13:14 15:42 13:09 Wound Center Nurse 1 #1 Right lat Lower Leg pOSTERIOR -Current Size (cm) - Length 0.2 0 -Current Size (cm) - Width 0.3 0 -Current Size (cm) - Depth 0.2 0 -Total Square Cm 0.06 0 -Exudate Amt Small -Exudate Type Serosanguineous -Wound Margin Distinct, Outline Attached -Granulation Amt Small (1-33%) -Granulation Quality [place] -Necrosis Amt Small (1-33%) -Necrotic Tissue Type Adherent Slough -Texture (Alpa-wound Skin Appearance) Assessed, Localized Edema ,Scarring -Moisture (Alpa-wound Skin Appearance) Assessed -Color (Alpa-wound Skin Appearance) Assessed -Temperature (Alpa-wound Skin No Abnormality Appearance) (Pt Warm) -Tenderness on Palpation (Alpa-wound No Skin Appearance) -Ulcer Cleansing Rinsed/ Irrigated with Saline -Foul Odor after Cleansing No -Anesthetic Used 5% Lidocaine Gel #2 Right inferior ankle CLUSTER -Combined with other wound No -Current Size (cm) - Length 3.3 3.2 3.2 -Current Size (cm) - Width 2 1.8 1.7 -Current Size (cm) - Depth 0.3 0.2 0.4 -Total Square Cm 6.6 5.76 5.44 -Epithelialization None Present -Tunneling No -Undermining/Tunneling No -Circular Undermining No -Exudate Amt Medium Small Medium -Exudate Type Serosanguineous Serosanguineous Serosanguineous -Wound Margin Distinct, Distinct, Distinct, Outline Outline Outline Attached Attached Attached -Granulation Amt Small (1-33%) Small (1-33%) Small (1-33%) -Granulation Quality [place],Red [place] Red -Slough/Fibrin Yes -Necrosis Amt Large (67-100%) Large (67-100%) Large (67-100%) -Necrotic Tissue Type Adherent Slough Adherent Slough Adherent Slough -Texture (Alpa-wound Skin Appearance) Assessed, Assessed Assessed, Localized Edema Scarring -Moisture (Alpa-wound Skin Appearance) Assessed Assessed Assessed,Dry/ Scaly -Color (Alpa-wound Skin Appearance) Assessed, Assessed, Assessed Erythema, Erythema Hemosiderin Staining -Temperature (Alpa-wound Skin No Abnormality No Abnormality No Abnormality Appearance) (Pt Warm) (Pt Warm) (Pt Warm) -Tenderness on Palpation (Alpa-wound No No No Skin Appearance) -Ulcer Cleansing Rinsed/ Rinsed/ Rinsed/ Irrigated with Irrigated with Irrigated with Saline Saline Saline -Foul Odor after Cleansing No No No -Anesthetic Used 5% Lidocaine 5% Lidocaine 5% Lidocaine Gel Gel Gel Right Calf (cm) 33 33.5 Right Ankle (cm) 23 20.2 WC - Nurse 2 - General Ulcer CM Notes Start: 07/06/24 13:10 Freq: Status: Active Protocol: Activity Type Activity Date Activity User E-sign Co-sign Detail Recorded Client Recorded Date Recorded By Document 07/06/24 13:36 [id number] 07/06/24 13:45 Document 07/12/24 16:05 [id number] 07/12/24 16:11 Document 07/20/24 13:29 [id number] 07/20/24 13:40 07/06/24 07/12/24 07/20/24 13:36 16:05 13:29 Wound Center Nurse 2 #1 Right lat Lower Leg pOSTERIOR -Time 13:37 -Correct Patient Yes -Correct Side, Site, Position Yes -Correct Procedure Yes -Procedure Performed Yes -Type of Procedure Debridement -Clinical Debridement Subcutaneous -Tissue Removed Subcutaneous -Post Debridement (cm) - Length 0.3 -Post Debridement (cm) - Width 0.3 -Post Debridement (cm) - Depth 0.2 -Total Square (Post) (cm) 0.09 -Area of Debridement (cm) - Length 0.3 -Area of Debridement (cm) - Width 0.3 -Total Square (Area) (cm) 0.09 -Tunneling No -Undermining/Tunneling No -Circular Undermining No -Wound/Ulcer Outcome Not Healed -Ulcer Cleansing Rinsed/ Irrigated with Saline -Foul Odor after Cleansing No -Bioengineered Tissue No -Bleeding Controlled with Pressure -Treatment Response Procedure Tolerated Well -Debridement - Subq, 1st 20sq cm No #2 Right inferior ankle CLUSTER -Time 13:37 16:05 13:30 -Correct Patient Yes Yes Yes -Correct Side, Site, Position Yes Yes Yes -Correct Procedure Yes Yes Yes -Procedure Performed Yes Yes Yes -Type of Procedure Debridement Debridement Debridement -Clinical Debridement Subcutaneous Subcutaneous Subcutaneous -Tissue Removed Subcutaneous Subcutaneous Subcutaneous -Post Debridement (cm) - Length 3.2 3.0 3.0 -Post Debridement (cm) - Width 2.0 1.8 1.8 -Post Debridement (cm) - Depth 0.4 0.3 0.4 -Total Square (Post) (cm) 6.40 5.40 5.40 -Area of Debridement (cm) - Length 3.2 3.0 3.0 -Area of Debridement (cm) - Width 2.0 1.8 1.8 -Total Square (Area) (cm) 6.40 5.40 5.40 -Tunneling No No No -Undermining/Tunneling No No No -Circular Undermining No No No -Wound/Ulcer Outcome Not Healed Not Healed Not Healed -Ulcer Cleansing Rinsed/ Not Cleansed Rinsed/ Irrigated with Irrigated with Saline Saline -Foul Odor after Cleansing No No No -Bioengineered Tissue No No No -Bleeding Controlled with Pressure Pressure Pressure -Treatment Response Procedure Procedure Tolerated Well Tolerated Well -Debridement - Subq, 1st 20sq cm Yes Yes Yes Pain Scale: 0-10 Numeric Is Patient Pain Free? Yes Yes Yes WC - Nurse 3 - General Ulcer D/C NN Start: 07/06/24 13:10 Freq: Status: Active Protocol: Activity Type Activity Date Activity User E-sign Co-sign Detail Recorded Client Recorded Date Recorded By Document 07/06/24 14:02 DL [id number] 07/06/24 14:05 DL Document 07/12/24 16:27 DS [id number] 07/12/24 16:27 DS Document 07/20/24 13:50 BMF [id number] 07/20/24 13:50 BMF 07/06/24 07/12/24 07/20/24 14:02 16:27 13:50 Wound Care Center Nurse 3 #1 Right lat Lower Leg pOSTERIOR -Ulcer Cleansing Rinsed/ Irrigated with Saline -Foul Odor after Cleansing No -Primary Dressing Applied Silicone Border Foam 4x4 -Other Dressing AQAUCEL AG -Silicone Border Foam 4x4 1 #2 Right inferior ankle CLUSTER -Ulcer Cleansing Rinsed/ Irrigated with Saline -Foul Odor after Cleansing No -Primary Dressing Applied Aquacel AG 4x4, Aquacel AG 4x4, Silicone Border Silicone Border Foam 4x4 Foam 4x4 -Aquacel AG 4x4 1 1 -Silicone Border Foam 4x4 1 1 -Silicone Border Foam 6x6 1 Right -Lotion applied to leg before Yes compression wrap -Tubular Bandage Single Layer Single Layer -Size of Tubigrip Used Size D Size D -Size D ($) 1 1 Treatment Response Procedure Tolerated Well Pain Scale: 0-10 Numeric Is Patient Pain Free? Yes Yes Yes WC - Visit Discharge Discharge Condition Stable Stable Stable Ambulatory Status Ambulatory Ambulatory Ambulatory Transportation Private Auto Private Auto Private Auto Accompanied by liss #2 Right inferior ankle CLUSTER -Ulcer Cleansing Rinsed/ Irrigated with Saline -Foul Odor after Cleansing No -Primary Dressing Applied Promogran Amy Matter, Silicone Border Foam 4x4 -Promogran Amy Matter 2 -Silicone Border Foam 4x4 1 Right -Tubular Bandage Single Layer -Size of Tubigrip Used Size D -Size D ($) 1 Treatment Response Procedure Tolerated Well Assessment/Plan Assessment/Plan (1) Venous insufficiency of both lower extremities: CODE(S): I87.2 - Venous insufficiency (chronic) (peripheral) (2) Ulcer of right ankle: CODE(S): L97.319 - Non-pressure chronic ulcer of right ankle with unspecified severity PLAN: ulcer of the right anterior ankle with to the muscle layer PLAN: Plan She will complete cefuroxime as prescribed. For wound care, will apply lightly moistened Amy followed by kerlix wrap. She has very sensitive skin, will utilize silicone tape or tape only dressings and avoid taping skin. Change daily or more often as needed to keep clean and dry. With dressing changes, wash the area with antibacterial soap and water, pat gently to dry well. No submerging the wound in water such as to take a bath, go swimming, etc. Will continue medium strength single layer tubigrip for compression. She will return in 1 week to see me.
[2024-07-27 13:26] VITALS: BP 115/75; PULSE 69; RESP 18; TEMP 36.1
--- NOTE | 2024-07-27 18:12 | PCM.WC.PN ---
History of Present Illness Date of Service: 07/27/24 Chief Complaint: R posterolateral calf wound History of Wound: Jhoana Nieves is a 78 y/o female who presents today for evaluation and management of a right posterolateral calf wound. She is accompanied to her appointment today by two family members. She is known to me from the vascular office where I have seen her for suspected venous insufficiency where I ordered venous reflux study which she is not scheduled to complete until 04/19. She reports that shortly after I saw her in the office in December, she developed this R calf wound. She thinks that she may have bumped this area of her leg. At home, she has been applying B&W ointment and other various herb salves without much improvement. She was started on some antibiotic by her PCP which she did not tolerate well, she cannot recall what antibiotic that was but she thinks she still has the bottle at home. She recently was seen for this wound in urgent care 03/20 at which time cultures were obtained. She was empirically started on Amoxicillin 875mg BID x 14 days which she is tolerating so far. The cultures ultimately grew lerma-sensitive E. coli. She notes mild to moderate drainage from the wound. She denies any spreading erythema, foul odor, acutely worsened edema, N/V, F/C. She is not diabetic. She does not smoke. Medical history is otherwise significant for A-fib (chronically anticoagulated with Coumadin), sick sinus syndrome status post pacemaker placement (2008). Subjective Subjective Jhoana reports she has been feeling well. She has not had much pain at all. Her RLE swelling remains improved. She has not had any increased redness or drainage from the wound. She feels that it looks smaller. Objective Data Objective Data Vital Signs: Vital Signs Temp Pulse Resp BP O2 Del Method 97 F L 69 18 115/75 Room Air 07/27/24 13:26 07/27/24 13:26 07/27/24 13:26 07/27/24 13:26 07/20/24 13:09 Oxygen Delivery Method Room Air Charges/Coding Procedures Integumentary 111xxx-113xx: [id number] Jazzy musc/fascia 20 sq cm/< Physical Exam Const alert, oriented x3 and no apparent distress General Appearance: cooperative and comfortable HEENT normocephalic, hearing grossly normal bilaterally, external ears normal and external nose normal Eyes EOMs intact bilaterally General Eye: normal appearance of both eyes Neck General: normal visual inspection and trachea midline Resp normal respiratory effort, normal air movement, no retractions and no use of accessory muscles Effort and Inspection: able to speak in complete sentences Cardio regular rate and regular rhythm Extremity General Extremity: edema bilateral Peripheral Pulses: Yes dorsalis pedis pulses present Skin Wounds: wounds noted Wound Narrative: Right posterolateral calf wound remains healed. R anterior baird/ankle wound cluster, proximal portion is to the subcutaneous tissue, distal portion is to the connective tissue. Granulation tissue at the base, slough but no necrotic tissue. Mild reactive erythema around the wound edges without excess warmth, focal edema, foul odor, significant drainage. Overall, induration, erythema, and edema through the lower leg is much improved. Neuro oriented x3, CN's II-XII intact bilaterally, moves all extremities, no focal motor deficits and no sensory deficits noted Psych mental status grossly normal Attitude: calm and engaged Activity / Motor Behavior: appropriate eye contact Speech: normal speech Mood & Affect: euthymic mood Judgement: judgement good Debridement Note Debridement Note Wound debrided: Right anterior calf wound Laterality: Right Type of Debridement: Excisional debridement Anesthesia Used: 4% Lidocaine Solution and 5% Lidocaine Gel Depth: Down to and including healthy tissue and in the subcutaneous layer Percentage of wound debrided: 100 Instrument Used: 3mm curette Tissue Removed: slough, devitalized tissue Severity: Fat Layer Exposed Amount of bleeding with debridement: Mild Bleeding Controlled with: Pressure Patient tolerated procedure: Patient tolerated procedure well Post-Debridement Measurements and Additional Note: Post-Debridement Measurements/Treatment - Nurse 1 - General Ulcer Assessment Start: 07/06/24 13:10 Freq: Status: Active Protocol: JAIME Activity Type Activity Date Activity User E-sign Co-sign Detail Recorded Client Recorded Date Recorded By Document 07/06/24 13:14 KW [id number] 07/06/24 13:21 KW Document 07/12/24 15:42 KW [id number] 07/12/24 15:47 KW Document 07/20/24 13:09 [facility] [id number] 07/20/24 13:18 BM Document 07/27/24 13:26 DL [id number] 07/27/24 13:34 DL 07/06/24 07/12/24 07/20/24 13:14 15:42 13:09 - Today's Visit Information Type of service Follow-up Visit Follow-up Visit Follow-up Visit (Physician/LOAN TELLER (Physician/LOAN TELLER (Physician/LOAN TELLER ) ) ) Arrival Mode Ambulatory Ambulatory Ambulatory Transfer Assistance None Accompanied by daughter family Patient Identification Verified (Name & Yes Yes Yes ) Patient Requires Transmission-Based No Precautions Vital Signs Temperature (97.8 F-99.1 F) 98.0 F 97.5 F L Temperature Source Temporal Temporal Pulse Rate (60-100) 67 66 Pulse Location Monitor Monitor Respiratory Rate (12-18) 16 18 16 Respiratory rate source Observation Observation Observation Oxygen Delivery Method Room Air Room Air Room Air Blood Pressure (90/60-120/80) 121/63 H 116/29 L Blood Pressure Mean (mm Hg) 82 58 Source Monitor Monitor Position Semi-Fowlers Sitting Blood Pressure Location Right Arm Right Arm History Since Last Visit- (Skip if this is Patient's initial visit) Have you changed medications since your No No No last visit? Any new allergies or adverse reactions No No No Had a fall/change in ADL's that may No No No increase risk of falls Signs or symptoms of abuse and/or No No No neglect since last visit Have you been in the hospital since your No No No last visit? Has dressing in place as prescribed Yes Yes Yes Has compression in place as prescribed Yes Yes N/A Has offloadiing in place as prescribed N/A N/A N/A Experienced any changes in pain level or No No No management Left Footwear Regular Shoe Regular Shoe Regular Shoe Right Footwear Regular Shoe Regular Shoe Regular Shoe Pain Scale: 0-10 Numeric Is Patient Pain Free? No Yes Yes RLE -Description Burning -Intensity 3 -Alleviating Factors/Interventions Inactivity/ Resting 07/27/24 13:26 - Today's Visit Information Type of service Follow-up Visit (Physician/LOAN TELLER ) Arrival Mode Ambulatory Transfer Assistance None Accompanied by Patient Identification Verified (Name & Yes ) Patient Requires Transmission-Based No Precautions Vital Signs Temperature (97.8 F-99.1 F) 97 F L Temperature Source Temporal Pulse Rate (60-100) 69 Pulse Location Monitor Respiratory Rate (12-18) 18 Respiratory rate source Observation Oxygen Delivery Method Blood Pressure (90/60-120/80) 115/75 Blood Pressure Mean (mm Hg) 88 Source Monitor Position Blood Pressure Location History Since Last Visit- (Skip if this is Patient's initial visit) Have you changed medications since your No last visit? Any new allergies or adverse reactions No Had a fall/change in ADL's that may No increase risk of falls Signs or symptoms of abuse and/or No neglect since last visit Have you been in the hospital since your No last visit? Has dressing in place as prescribed Yes Has compression in place as prescribed Yes Has offloadiing in place as prescribed N/A Experienced any changes in pain level or No management Left Footwear Right Footwear Pain Scale: 0-10 Numeric Is Patient Pain Free? Yes RLE -Description -Intensity -Alleviating Factors/Interventions WC - Nurse 1 - General Ulcer Measurement Start: 07/06/24 13:10 Freq: Status: Active Protocol: Activity Type Activity Date Activity User E-sign Co-sign Detail Recorded Client Recorded Date Recorded By Document 07/06/24 13:14 KW [id number] 07/06/24 13:21 KW Document 07/12/24 15:42 KW [id number] 07/12/24 15:47 KW Document 07/20/24 13:09 BMF [id number] 07/20/24 13:18 BMF Document 07/27/24 13:26 DL [id number] 07/27/24 13:34 DL 07/06/24 07/12/24 07/20/24 13:14 15:42 13:09 Wound Center Nurse 1 #1 Right lat Lower Leg pOSTERIOR -Current Size (cm) - Length 0.2 0 -Current Size (cm) - Width 0.3 0 -Current Size (cm) - Depth 0.2 0 -Total Square Cm 0.06 0 -Exudate Amt Small -Exudate Type Serosanguineous -Wound Margin Distinct, Outline Attached -Granulation Amt Small (1-33%) -Granulation Quality [place] -Necrosis Amt Small (1-33%) -Necrotic Tissue Type Adherent Slough -Texture (Alpa-wound Skin Appearance) Assessed, Localized Edema ,Scarring -Moisture (Alpa-wound Skin Appearance) Assessed -Color (Alpa-wound Skin Appearance) Assessed -Temperature (Alpa-wound Skin No Abnormality Appearance) (Pt Warm) -Tenderness on Palpation (Alpa-wound No Skin Appearance) -Ulcer Cleansing Rinsed/ Irrigated with Saline -Foul Odor after Cleansing No -Anesthetic Used 5% Lidocaine Gel #2 Right inferior ankle CLUSTER -Combined with other wound No -Current Size (cm) - Length 3.3 3.2 3.2 -Current Size (cm) - Width 2 1.8 1.7 -Current Size (cm) - Depth 0.3 0.2 0.4 -Total Square Cm 6.6 5.76 5.44 -Photo Taken -Epithelialization None Present -Tunneling No -Undermining/Tunneling No -Circular Undermining No -Exudate Amt Medium Small Medium -Exudate Type Serosanguineous Serosanguineous Serosanguineous -Wound Margin Distinct, Distinct, Distinct, Outline Outline Outline Attached Attached Attached -Granulation Amt Small (1-33%) Small (1-33%) Small (1-33%) -Granulation Quality [place],Red [place] Red -Slough/Fibrin Yes -Necrosis Amt Large (67-100%) Large (67-100%) Large (67-100%) -Necrotic Tissue Type Adherent Slough Adherent Slough Adherent Slough -Structure Exposed -Texture (Alpa-wound Skin Appearance) Assessed, Assessed Assessed, Localized Edema Scarring -Moisture (Alpa-wound Skin Appearance) Assessed Assessed Assessed,Dry/ Scaly -Color (Alpa-wound Skin Appearance) Assessed, Assessed, Assessed Erythema, Erythema Hemosiderin Staining -Temperature (Alpa-wound Skin No Abnormality No Abnormality No Abnormality Appearance) (Pt Warm) (Pt Warm) (Pt Warm) -Tenderness on Palpation (Alpa-wound No No No Skin Appearance) -Ulcer Cleansing Rinsed/ Rinsed/ Rinsed/ Irrigated with Irrigated with Irrigated with Saline Saline Saline -Foul Odor after Cleansing No No No -Anesthetic Used 5% Lidocaine 5% Lidocaine 5% Lidocaine Gel Gel Gel Right Calf (cm) 33 33.5 Right Ankle (cm) 23 20.2 07/27/24 13:26 Wound Center Nurse 1 #1 Right lat Lower Leg pOSTERIOR -Current Size (cm) - Length -Current Size (cm) - Width -Current Size (cm) - Depth -Total Square Cm -Exudate Amt -Exudate Type -Wound Margin -Granulation Amt -Granulation Quality -Necrosis Amt -Necrotic Tissue Type -Texture (Alpa-wound Skin Appearance) -Moisture (Alpa-wound Skin Appearance) -Color (Alpa-wound Skin Appearance) -Temperature (Alpa-wound Skin Appearance) -Tenderness on Palpation (Alpa-wound Skin Appearance) -Ulcer Cleansing -Foul Odor after Cleansing -Anesthetic Used #2 Right inferior ankle CLUSTER -Combined with other wound -Current Size (cm) - Length 3 -Current Size (cm) - Width 1.8 -Current Size (cm) - Depth 0.5 -Total Square Cm 5.4 -Photo Taken Yes -Epithelialization -Tunneling -Undermining/Tunneling -Circular Undermining -Exudate Amt Small -Exudate Type -Wound Margin Thickened & Rolled Under -Granulation Amt Medium (34-66%) -Granulation Quality [place] -Slough/Fibrin -Necrosis Amt Medium (34-66%) -Necrotic Tissue Type Adherent Slough -Structure Exposed N/A -Texture (Alpa-wound Skin Appearance) Scarring -Moisture (Alpa-wound Skin Appearance) No Abnormality -Color (Alpa-wound Skin Appearance) No Abnormality -Temperature (Alpa-wound Skin No Abnormality Appearance) (Pt Warm) -Tenderness on Palpation (Alpa-wound No Skin Appearance) -Ulcer Cleansing Rinsed/ Irrigated with Saline -Foul Odor after Cleansing No -Anesthetic Used 5% Lidocaine Gel Right Calf (cm) 2.7 Right Ankle (cm) 22.8 WC - Nurse 2 - General Ulcer CM Notes Start: 07/06/24 13:10 Freq: Status: Active Protocol: Activity Type Activity Date Activity User E-sign Co-sign Detail Recorded Client Recorded Date Recorded By Document 07/06/24 13:36 [id number] 07/06/24 13:45 Document 07/12/24 16:05 [id number] 07/12/24 16:11 Document 07/20/24 13:29 [id number] 07/20/24 13:40 Document 07/27/24 13:46 [id number] 07/27/24 13:48 07/06/24 07/12/24 07/20/24 13:36 16:05 13:29 Wound Center Nurse 2 #1 Right lat Lower Leg pOSTERIOR -Time 13:37 -Correct Patient Yes -Correct Side, Site, Position Yes -Correct Procedure Yes -Procedure Performed Yes -Type of Procedure Debridement -Clinical Debridement Subcutaneous -Tissue Removed Subcutaneous -Post Debridement (cm) - Length 0.3 -Post Debridement (cm) - Width 0.3 -Post Debridement (cm) - Depth 0.2 -Total Square (Post) (cm) 0.09 -Area of Debridement (cm) - Length 0.3 -Area of Debridement (cm) - Width 0.3 -Total Square (Area) (cm) 0.09 -Tunneling No -Undermining/Tunneling No -Circular Undermining No -Wound/Ulcer Outcome Not Healed -Ulcer Cleansing Rinsed/ Irrigated with Saline -Foul Odor after Cleansing No -Bioengineered Tissue No -Bleeding Controlled with Pressure -Treatment Response Procedure Tolerated Well -Debridement - Subq, 1st 20sq cm No #2 Right inferior ankle CLUSTER -Time 13:37 16:05 13:30 -Correct Patient Yes Yes Yes -Correct Side, Site, Position Yes Yes Yes -Correct Procedure Yes Yes Yes -Procedure Performed Yes Yes Yes -Type of Procedure Debridement Debridement Debridement -Clinical Debridement Subcutaneous Subcutaneous Subcutaneous -Tissue Removed Subcutaneous Subcutaneous Subcutaneous -Post Debridement (cm) - Length 3.2 3.0 3.0 -Post Debridement (cm) - Width 2.0 1.8 1.8 -Post Debridement (cm) - Depth 0.4 0.3 0.4 -Total Square (Post) (cm) 6.40 5.40 5.40 -Area of Debridement (cm) - Length 3.2 3.0 3.0 -Area of Debridement (cm) - Width 2.0 1.8 1.8 -Total Square (Area) (cm) 6.40 5.40 5.40 -Tunneling No No No -Undermining/Tunneling No No No -Circular Undermining No No No -Wound/Ulcer Outcome Not Healed Not Healed Not Healed -Ulcer Cleansing Rinsed/ Not Cleansed Rinsed/ Irrigated with Irrigated with Saline Saline -Foul Odor after Cleansing No No No -Bioengineered Tissue No No No -Bleeding Controlled with Pressure Pressure Pressure -Treatment Response Procedure Procedure Tolerated Well Tolerated Well -Debridement - Subq, 1st 20sq cm Yes Yes Yes Pain Scale: 0-10 Numeric Is Patient Pain Free? Yes Yes Yes 07/27/24 13:46 Wound Center Nurse 2 #1 Right lat Lower Leg pOSTERIOR -Time -Correct Patient -Correct Side, Site, Position -Correct Procedure -Procedure Performed -Type of Procedure -Clinical Debridement -Tissue Removed -Post Debridement (cm) - Length -Post Debridement (cm) - Width -Post Debridement (cm) - Depth -Total Square (Post) (cm) -Area of Debridement (cm) - Length -Area of Debridement (cm) - Width -Total Square (Area) (cm) -Tunneling -Undermining/Tunneling -Circular Undermining -Wound/Ulcer Outcome -Ulcer Cleansing -Foul Odor after Cleansing -Bioengineered Tissue -Bleeding Controlled with -Treatment Response -Debridement - Subq, 1st 20sq cm #2 Right inferior ankle CLUSTER -Time 13:47 -Correct Patient Yes -Correct Side, Site, Position Yes -Correct Procedure Yes -Procedure Performed Yes -Type of Procedure Debridement -Clinical Debridement Subcutaneous -Tissue Removed Subcutaneous -Post Debridement (cm) - Length 3.3 -Post Debridement (cm) - Width 1.6 -Post Debridement (cm) - Depth 0.4 -Total Square (Post) (cm) 5.28 -Area of Debridement (cm) - Length 3.3 -Area of Debridement (cm) - Width 1.6 -Total Square (Area) (cm) 5.28 -Tunneling No -Undermining/Tunneling No -Circular Undermining No -Wound/Ulcer Outcome Not Healed -Ulcer Cleansing Rinsed/ Irrigated with Saline -Foul Odor after Cleansing No -Bioengineered Tissue No -Bleeding Controlled with Pressure -Treatment Response Procedure Tolerated Well -Debridement - Subq, 1st 20sq cm Yes Pain Scale: 0-10 Numeric Is Patient Pain Free? Yes WC - Nurse 3 - General Ulcer D/C NN Start: 07/06/24 13:10 Freq: Status: Active Protocol: Activity Type Activity Date Activity User E-sign Co-sign Detail Recorded Client Recorded Date Recorded By Document 07/06/24 14:02 DL [id number] 07/06/24 14:05 DL Document 07/12/24 16:27 DS [id number] 07/12/24 16:27 DS Document 07/20/24 13:50 BMF [id number] 07/20/24 13:50 BMF Document 07/27/24 14:06 KW [id number] 07/27/24 14:06 KW 07/06/24 07/12/24 07/20/24 14:02 16:27 13:50 Wound Care Center Nurse 3 #1 Right lat Lower Leg pOSTERIOR -Ulcer Cleansing Rinsed/ Irrigated with Saline -Foul Odor after Cleansing No -Primary Dressing Applied Silicone Border Foam 4x4 -Other Dressing AQAUCEL AG -Silicone Border Foam 4x4 1 #2 Right inferior ankle CLUSTER -Ulcer Cleansing Rinsed/ Irrigated with Saline -Foul Odor after Cleansing No -Primary Dressing Applied Aquacel AG 4x4, Aquacel AG 4x4, Silicone Border Silicone Border Foam 4x4 Foam 4x4 -Aquacel AG 4x4 1 1 -Silicone Border Foam 4x4 1 1 -Silicone Border Foam 6x6 1 Right -Lotion applied to leg before Yes compression wrap -Tubular Bandage Single Layer Single Layer -Size of Tubigrip Used Size D Size D -Size D ($) 1 1 Treatment Response Procedure Tolerated Well Pain Scale: 0-10 Numeric Is Patient Pain Free? Yes Yes Yes WC - Visit Discharge Discharge Condition Stable Stable Stable Ambulatory Status Ambulatory Ambulatory Ambulatory Transportation Private Auto Private Auto Private Auto Accompanied by liss Medication Reconcilliation completed & provided to patient/care provider Clinical Summary of Care Provided #2 Right inferior ankle CLUSTER -Ulcer Cleansing Rinsed/ Irrigated with Saline -Foul Odor after Cleansing No -<Query Deleted From Dictionary> [id number] [id number] SILICONE -Promogran Amy Matter 2 -Pieces of Black Foam Inserted 1 Right -Tubular Bandage Single Layer -Size of Tubigrip Used Size D -Size D ($) 1 Treatment Response Procedure Tolerated Well 07/27/24 14:06 Wound Care Center Nurse 3 #1 Right lat Lower Leg pOSTERIOR -Ulcer Cleansing -Foul Odor after Cleansing -Primary Dressing Applied -Other Dressing -Silicone Border Foam 4x4 #2 Right inferior ankle CLUSTER -Ulcer Cleansing -Foul Odor after Cleansing -Primary Dressing Applied -Aquacel AG 4x4 -Silicone Border Foam 4x4 -Silicone Border Foam 6x6 Right -Lotion applied to leg before compression wrap -Tubular Bandage -Size of Tubigrip Used -Size D ($) Treatment Response Pain Scale: 0-10 Numeric Is Patient Pain Free? Yes WC - Visit Discharge Discharge Condition Stable Ambulatory Status Ambulatory Transportation Private Auto Accompanied by Medication Reconcilliation completed & No provided to patient/care provider Clinical Summary of Care Provided Yes #2 Right inferior ankle CLUSTER -Ulcer Cleansing -Foul Odor after Cleansing -<Query Deleted From Dictionary> [id number] [id number] SILICONE -Promogran Amy Matter 2 -Pieces of Black Foam Inserted 1 Right -Tubular Bandage Single Layer -Size of Tubigrip Used Size D -Size D ($) 1 Treatment Response Assessment/Plan Assessment/Plan (1) Venous insufficiency of both lower extremities: CODE(S): I87.2 - Venous insufficiency (chronic) (peripheral) (2) Ulcer of right ankle: CODE(S): L97.319 - Non-pressure chronic ulcer of right ankle with unspecified severity PLAN: ulcer of the right anterior ankle with to the muscle layer PLAN: Plan She completed cefuroxime last week. Will monitor closely for recurrent signs of infection. For wound care, will continue to apply lightly moistened Amy followed by kerlix wrap. She has very sensitive skin, will utilize silicone tape or tape only dressings and avoid taping skin. Change daily or more often as needed to keep clean and dry. With dressing changes, wash the area with antibacterial soap and water, pat gently to dry well. No submerging the wound in water such as to take a bath, go swimming, etc. Will continue medium strength single layer tubigrip for compression. She will return in 1 week.
== END 2024-07-28 23:59 | disposition home or self-care (01) ==
LOC: WC 13:00
PROVIDERS: PCP Nurse Practitioner Family; Referring Provider Nurse Practitioner Family; Visit Provider Physician Assistant
DX: L03.115 Cellulitis of right lower limb (principal); L97.912 Non-pressure chronic ulcer of unspecified part of right lower leg with fat layer exposed; Z79.01 Long term (current) use of anticoagulants; Z90.5 Acquired absence of kidney; I87.2 Venous insufficiency (chronic) (peripheral)
CPT/HCPCS: 11042

== ENCOUNTER 2024-07-27 14:20 | Outpatient (RCR) | payer MEDICARE, SELFPAY ==
[2024-07-01 01:26] VITALS: BMI 23.6
[2024-07-06 15:21] LABS: International Normalized Ratio 1.5; Prothrombin Time (Protime)PT. 18.4 SECONDS (11.7-14.9)
[2024-07-12 15:13] LABS: International Normalized Ratio 2.1
[2024-07-27 15:13] LABS: International Normalized Ratio 2.2; Prothrombin Time (Protime)PT. 24.8 SECONDS (11.7-14.9)
== END 2024-07-28 18:00 | disposition home or self-care (01) ==
LOC: LAB 14:20
PROVIDERS: Family Provider Family Medicine; PCP Nurse Practitioner Family; Referring Provider Internal Medicine Cardiovascular Disease; Visit Provider Internal Medicine Cardiovascular Disease
DX: Z79.01 Long term (current) use of anticoagulants
CPT/HCPCS: 36415; 85610

== ENCOUNTER 2024-08-17 13:00 | Outpatient (RCR) | payer MEDICARE, SELFPAY ==
[2024-07-29 00:37] VITALS: BP 115/75; PULSE 69; RESP 18; TEMP 36.1
[2024-08-10 13:12] VITALS: BP 117/58; PULSE 66; RESP 16; TEMP 36.1
--- NOTE | 2024-08-10 13:57 | PCM.WC.PN ---
History of Present Illness Date of Service: 08/10/24 Chief Complaint: R posterolateral calf wound History of Wound: Jhoana Nieves is a 78 y/o female who presents today for evaluation and management of a right posterolateral calf wound. She is accompanied to her appointment today by two family members. She is known to me from the vascular office where I have seen her for suspected venous insufficiency where I ordered venous reflux study which she is not scheduled to complete until 04/19. She reports that shortly after I saw her in the office in December, she developed this R calf wound. She thinks that she may have bumped this area of her leg. At home, she has been applying B&W ointment and other various herb salves without much improvement. She was started on some antibiotic by her PCP which she did not tolerate well, she cannot recall what antibiotic that was but she thinks she still has the bottle at home. She recently was seen for this wound in urgent care 03/20 at which time cultures were obtained. She was empirically started on Amoxicillin 875mg BID x 14 days which she is tolerating so far. The cultures ultimately grew lerma-sensitive E. coli. She notes mild to moderate drainage from the wound. She denies any spreading erythema, foul odor, acutely worsened edema, N/V, F/C. She is not diabetic. She does not smoke. Medical history is otherwise significant for A-fib (chronically anticoagulated with Coumadin), sick sinus syndrome status post pacemaker placement (2008). Subjective Subjective Jhoana has noticed a new blister near her wound and a new pin-hole opening in the area of the wound as well. Maybe some increased redness. No N/V, F/C, or other constitutional symptoms. Objective Data Objective Data Vital Signs: Vital Signs Temp Pulse Resp BP O2 Del Method 96.9 F L 66 16 117/58 L Room Air 08/10/24 13:12 08/10/24 13:12 08/10/24 13:12 08/10/24 13:12 08/10/24 13:12 Oxygen Delivery Method Room Air Charges/Coding Procedures Integumentary 111xxx-113xx: 37104 Jazzy musc/fascia 20 sq cm/< Physical Exam Const alert, oriented x3 and no apparent distress General Appearance: cooperative and comfortable HEENT normocephalic, hearing grossly normal bilaterally, external ears normal and external nose normal Eyes EOMs intact bilaterally General Eye: normal appearance of both eyes Neck General: normal visual inspection and trachea midline Resp normal respiratory effort, normal air movement, no retractions and no use of accessory muscles Effort and Inspection: able to speak in complete sentences Cardio regular rate and regular rhythm Extremity General Extremity: edema bilateral Peripheral Pulses: Yes dorsalis pedis pulses present Skin Wounds: wounds noted Wound Narrative: Right posterolateral calf wound remains healed. R anterior baird/ankle wound cluster, proximal portion is to the subcutaneous tissue, distal portion is to the connective tissue. Granulation tissue at the base, slough but no necrotic tissue. Increased erythema around the wound edges without focal edema, foul odor, significant drainage. There is a blister on the edge of the inferior portion of the wound; there is a new pinhole opening within the wound cluster in an area of previously intact skin. Neuro oriented x3, CN's II-XII intact bilaterally, moves all extremities, no focal motor deficits and no sensory deficits noted Psych mental status grossly normal Attitude: calm and engaged Activity / Motor Behavior: appropriate eye contact Speech: normal speech Mood & Affect: euthymic mood Judgement: judgement good Debridement Note Debridement Note Wound debrided: Right anterior calf wound Laterality: Right Type of Debridement: Excisional debridement Anesthesia Used: 4% Lidocaine Solution and 5% Lidocaine Gel Depth: Down to and including healthy tissue and in the subcutaneous layer Percentage of wound debrided: 100 Instrument Used: 3mm curette Tissue Removed: slough, devitalized tissue Severity: Fat Layer Exposed Amount of bleeding with debridement: Mild Bleeding Controlled with: Pressure Patient tolerated procedure: Patient tolerated procedure well Post-Debridement Measurements and Additional Note: Post-Debridement Measurements/Treatment - Nurse 1 - General Ulcer Assessment Start: 08/10/24 13:10 Freq: Status: Active Protocol: CELY.LOWSANTHOSHT Activity Type Activity Date Activity User E-sign Co-sign Detail Recorded Client Recorded Date Recorded By Document 08/10/24 13:12 [id number] 08/10/24 13:20 KW 08/10/24 13:12 - Today's Visit Information Type of service Follow-up Visit (Physician/ANIMAL TECH ) Arrival Mode Ambulatory Accompanied by daughter Patient Identification Verified (Name & Yes ) Vital Signs Temperature (97.8 F-99.1 F) 96.9 F L Temperature Source Temporal Pulse Rate (60-100) 66 Pulse Location Monitor Respiratory Rate (12-18) 16 Respiratory rate source Observation Oxygen Delivery Method Room Air Blood Pressure (90/60-120/80) 117/58 L Blood Pressure Mean (mm Hg) 77 Source Monitor Position Semi-Fowlers Blood Pressure Location Left Arm History Since Last Visit- (Skip if this is Patient's initial visit) Have you changed medications since your No last visit? Any new allergies or adverse reactions No Had a fall/change in ADL's that may No increase risk of falls Signs or symptoms of abuse and/or No neglect since last visit Have you been in the hospital since your No last visit? Has dressing in place as prescribed Yes Has compression in place as prescribed Yes Has offloadiing in place as prescribed N/A Experienced any changes in pain level or No management Left Footwear Regular Shoe Right Footwear Regular Shoe Pain Scale: 0-10 Numeric Is Patient Pain Free? Yes WC - Nurse 1 - General Ulcer Measurement Start: 08/10/24 13:10 Freq: Status: Active Protocol: Activity Type Activity Date Activity User E-sign Co-sign Detail Recorded Client Recorded Date Recorded By Document 08/10/24 13:12 [id number] 08/10/24 13:20 KW 08/10/24 13:12 Wound Center Nurse 1 #2 Right inferior ankle CLUSTER -Current Size (cm) - Length 3.3 -Current Size (cm) - Width 1.3 -Current Size (cm) - Depth 0.4 -Total Square Cm 4.29 -Date of Last Picture (Recall this 08/10/24 field) -Exudate Amt Small -Exudate Type Serosanguineous -Wound Margin Distinct, Outline Attached -Granulation Amt Small (1-33%) -Granulation Quality Red -Necrosis Amt Large (67-100%) -Necrotic Tissue Type Adherent Slough -Texture (Alpa-wound Skin Appearance) Assessed -Moisture (Alpa-wound Skin Appearance) Assessed -Color (Alpa-wound Skin Appearance) Assessed, Erythema -Temperature (Alpa-wound Skin No Abnormality Appearance) (Pt Warm) -Tenderness on Palpation (Alpa-wound Yes Skin Appearance) -Ulcer Cleansing Rinsed/ Irrigated with Saline -Anesthetic Used 5% Lidocaine Gel Right Calf (cm) 34 Right Ankle (cm) 23.5 WC - Nurse 2 - General Ulcer CM Notes Start: 08/10/24 13:10 Freq: Status: Active Protocol: Activity Type Activity Date Activity User E-sign Co-sign Detail Recorded Client Recorded Date Recorded By Document 08/10/24 13:34 GM [id number] 08/10/24 13:41 GM Edit Result 08/10/24 13:34 GM (1) [id number] 08/10/24 13:43 GM (1) #2 Right inferior ankle CLUSTER - Clinical Debridement Subcutaneous => Muscle / Fascia - Tissue Removed Subcutaneous => Muscle - Debridement - Subq, 1st 20sq cm Yes => - Debridement - Muscle / Fascia, 1st => Yes 20sq cm 08/10/24 13:34 Wound Center Nurse 2 #2 Right inferior ankle CLUSTER -Time 13:34 -Correct Patient Yes -Correct Side, Site, Position Yes -Correct Procedure Yes -Procedure Performed Yes -Type of Procedure Debridement -Clinical Debridement Muscle / Fascia -Tissue Removed Muscle -Post Debridement (cm) - Length 3.0 -Post Debridement (cm) - Width 1.5 -Post Debridement (cm) - Depth 0.5 -Total Square (Post) (cm) 4.50 -Area of Debridement (cm) - Length 3.0 -Area of Debridement (cm) - Width 1.5 -Total Square (Area) (cm) 4.50 -Tunneling No -Undermining/Tunneling No -Circular Undermining No -Wound/Ulcer Outcome Not Healed -Ulcer Cleansing Rinsed/ Irrigated with Saline -Foul Odor after Cleansing No -Bioengineered Tissue No -Bleeding Controlled with Pressure -Treatment Response Procedure Tolerated Well -Offloading No -Debridement - Muscle / Fascia, 1st Yes 20sq cm Pain Scale: 0-10 Numeric Is Patient Pain Free? Yes Assessment/Plan Assessment/Plan (1) Venous insufficiency of both lower extremities: CODE(S): I87.2 - Venous insufficiency (chronic) (peripheral) (2) Ulcer of right ankle: CODE(S): L97.319 - Non-pressure chronic ulcer of right ankle with unspecified severity PLAN: ulcer of the right anterior ankle with to the muscle layer PLAN: Plan WIth new pinhole opening, blister, and some increased erythema I am concerned for recurrent infection. Will prescribed another course of cefuroxime; will add doxycycline for good bone penetration in case of osteo given the chronicity/recurrence of the infectious symptoms though XR/CT not suggestive of osteo, unable to perform MRI which would be diagnostic. For wound care, will continue to apply lightly moistened Amy followed by kerlix wrap. She has very sensitive skin, will utilize silicone tape or tape only dressings and avoid taping skin. Change daily or more often as needed to keep clean and dry. With dressing changes, wash the area with antibacterial soap and water, pat gently to dry well. No submerging the wound in water such as to take a bath, go swimming, etc. Will continue medium strength single layer tubigrip for compression. She will return in 1 week.
--- NOTE | 2024-08-11 12:13 | WC ---
PHOTO 08/10/24 CODY LOMBARDI
[2024-08-17 13:03] VITALS: BP 117/56; PULSE 74; RESP 14; TEMP 36.2
--- NOTE | 2024-08-17 13:36 | PN.PCM_ITS ---
History of Present Illness Date of Service: 08/17/24 Chief Complaint: R posterolateral calf wound History of Wound: Jhoana Nieves is a 78 y/o female who presents today for evaluation and management of a right posterolateral calf wound. She is accompanied to her appointment today by two family members. She is known to me from the vascular office where I have seen her for suspected venous insufficiency where I ordered venous reflux study which she is not scheduled to complete until 04/19. She reports that shortly after I saw her in the office in December, she developed this R calf wound. She thinks that she may have bumped this area of her leg. At home, she has been applying B&W ointment and other various herb salves without much improvement. She was started on some antibiotic by her PCP which she did not tolerate well, she cannot recall what antibiotic that was but she thinks she still has the bottle at home. She recently was seen for this wound in urgent care 03/20 at which time cultures were obtained. She was empirically started on Amoxicillin 875mg BID x 14 days which she is tolerating so far. The cultures ultimately grew lerma-sensitive E. coli. She notes mild to moderate drainage from the wound. She denies any spreading erythema, foul odor, acutely worsened edema, N/V, F/C. She is not diabetic. She does not smoke. Medical history is otherwise significant for A-fib (chronically anticoagulated with Coumadin), sick sinus syndrome status post pacemaker placement (2008). Subjective Subjective Blister from last week has resolved, now small ulceration where it was which is superficial. Most superior ulceration in the cluster is making progress towards epithelialization; distal ulcers appear stable. There is still erythema around the area of the wound, a bit therapeutic support staff from last week. No N/V, F/C. Objective Data Objective Data Vital Signs: Vital Signs Temp Pulse Resp BP O2 Del Method 97.1 F L 74 14 117/56 L Room Air 08/17/24 13:03 08/17/24 13:03 08/17/24 13:03 08/17/24 13:03 08/10/24 13:12 Oxygen Delivery Method Room Air Charges/Coding Procedures Integumentary 111xxx-113xx: 23474 Jazzy musc/fascia 20 sq cm/< Physical Exam Const alert, oriented x3 and no apparent distress General Appearance: cooperative and comfortable HEENT normocephalic, hearing grossly normal bilaterally, external ears normal and external nose normal Eyes EOMs intact bilaterally General Eye: normal appearance of both eyes Neck General: normal visual inspection and trachea midline Resp normal respiratory effort, normal air movement, no retractions and no use of accessory muscles Effort and Inspection: able to speak in complete sentences Cardio regular rate and regular rhythm Extremity General Extremity: edema bilateral Peripheral Pulses: Yes dorsalis pedis pulses present Skin Wounds: wounds noted Wound Narrative: Right posterolateral calf wound remains healed. R anterior baird/ankle wound cluster, proximal portion is to the subcutaneous tissue, distal portion is to the connective tissue. Granulation tissue at the base, slough but no necrotic tissue. Increased erythema around the wound edges without focal edema, foul odor, significant drainage. Prior blister evolved to new, small, superficial ulceration at the inferior edge of the wound cluster; stable pinhole opening within the wound cluster in an area of previously intact skin. Stable/slightly improved erythema. Neuro oriented x3, CN's II-XII intact bilaterally, moves all extremities, no focal motor deficits and no sensory deficits noted Psych mental status grossly normal Attitude: calm and engaged Activity / Motor Behavior: appropriate eye contact Speech: normal speech Mood & Affect: euthymic mood Judgement: judgement good Debridement Note Debridement Note Wound debrided: Right anterior calf wound Laterality: Right Type of Debridement: Excisional debridement Anesthesia Used: 4% Lidocaine Solution and 5% Lidocaine Gel Depth: Down to and including healthy tissue and in the subcutaneous layer Percentage of wound debrided: 100 Instrument Used: 3mm curette Tissue Removed: slough, devitalized tissue Severity: Fat Layer Exposed Amount of bleeding with debridement: Mild Bleeding Controlled with: Pressure Patient tolerated procedure: Patient tolerated procedure well Post-Debridement Measurements and Additional Note: Post-Debridement Measurements/Treatment - Nurse 1 - General Ulcer Assessment Start: 08/10/24 13:10 Freq: Status: Active Protocol: JAIME Activity Type Activity Date Activity User E-sign Co-sign Detail Recorded Client Recorded Date Recorded By Document 08/10/24 13:12 PAULO [id number] 08/10/24 13:20 KW Document 08/17/24 13:03 KW [id number] 08/17/24 13:07 KW 08/10/24 08/17/24 13:12 13:03 - Today's Visit Information Type of service Follow-up Visit Follow-up Visit (Physician/COMPLIANCE ADVISOR (Physician/COMPLIANCE ADVISOR ) ) Arrival Mode Ambulatory Ambulatory Transfer Assistance None Accompanied by daughter Patient Identification Verified (Name & Yes Yes ) Patient Requires Transmission-Based No Precautions Vital Signs Temperature (97.8 F-99.1 F) 96.9 F L 97.1 F L Temperature Source Temporal Temporal Pulse Rate (60-100) 66 74 Pulse Location Monitor Monitor Respiratory Rate (12-18) 16 14 Respiratory rate source Observation Observation Oxygen Delivery Method Room Air Blood Pressure (90/60-120/80) 117/58 L 117/56 L Blood Pressure Mean (mm Hg) 77 76 Source Monitor Monitor Position Semi-Fowlers Sitting Blood Pressure Location Left Arm Right Arm History Since Last Visit- (Skip if this is Patient's initial visit) Have you changed medications since your No No last visit? Any new allergies or adverse reactions No No Had a fall/change in ADL's that may No No increase risk of falls Signs or symptoms of abuse and/or No No neglect since last visit Have you been in the hospital since your No No last visit? Has dressing in place as prescribed Yes Yes Has compression in place as prescribed Yes N/A Has offloadiing in place as prescribed N/A N/A Experienced any changes in pain level or No No management Left Footwear Regular Shoe Right Footwear Regular Shoe Pain Scale: 0-10 Numeric Is Patient Pain Free? Yes Yes WC - Nurse 1 - General Ulcer Measurement Start: 08/10/24 13:10 Freq: Status: Active Protocol: Activity Type Activity Date Activity User E-sign Co-sign Detail Recorded Client Recorded Date Recorded By Document 08/10/24 13:12 KW [id number] 08/10/24 13:20 KW Document 08/17/24 13:03 KW [id number] 08/17/24 13:07 KW 08/10/24 08/17/24 13:12 13:03 Wound Center Nurse 1 #2 Right inferior ankle CLUSTER -Current Size (cm) - Length 3.3 3.5 -Current Size (cm) - Width 1.3 1.5 -Current Size (cm) - Depth 0.4 0.3 -Total Square Cm 4.29 5.25 -Date of Last Picture (Recall this 08/10/24 field) -Epithelialization Medium 34-66% -Exudate Amt Small Medium -Exudate Type Serosanguineous Serosanguineous -Wound Margin Distinct, Distinct, Outline Outline Attached Attached -Granulation Amt Small (1-33%) Medium (34-66%) -Granulation Quality Red -Slough/Fibrin Yes -Necrosis Amt Large (67-100%) Medium (34-66%) -Necrotic Tissue Type Adherent Slough -Texture (Alpa-wound Skin Appearance) Assessed Assessed -Moisture (Alpa-wound Skin Appearance) Assessed Assessed -Color (Alpa-wound Skin Appearance) Assessed, Assessed Erythema -Temperature (Alpa-wound Skin No Abnormality No Abnormality Appearance) (Pt Warm) (Pt Warm) -Tenderness on Palpation (Alpa-wound Yes Yes Skin Appearance) -Ulcer Cleansing Rinsed/ Rinsed/ Irrigated with Irrigated with Saline Saline -Foul Odor after Cleansing No -Anesthetic Used 5% Lidocaine 4% Lidocaine Gel Solution Right Calf (cm) 34 Right Ankle (cm) 23.5 WC - Nurse 2 - General Ulcer CM Notes Start: 08/10/24 13:10 Freq: Status: Active Protocol: Activity Type Activity Date Activity User E-sign Co-sign Detail Recorded Client Recorded Date Recorded By Document 08/10/24 13:34 GM [id number] 08/10/24 13:41 GM Edit Result 08/10/24 13:34 GM (1) [id number] 08/10/24 13:43 GM Document 08/17/24 13:15 GM [id number] 08/17/24 13:22 GM (1) #2 Right inferior ankle CLUSTER - Clinical Debridement Subcutaneous => Muscle / Fascia - Tissue Removed Subcutaneous => Muscle - Debridement - Subq, 1st 20sq cm Yes => - Debridement - Muscle / Fascia, 1st => Yes 20sq cm 08/10/24 08/17/24 13:34 13:15 Wound Center Nurse 2 #2 Right inferior ankle CLUSTER -Time 13:34 13:19 -Correct Patient Yes Yes -Correct Side, Site, Position Yes Yes -Correct Procedure Yes Yes -Procedure Performed Yes Yes -Type of Procedure Debridement Debridement -Clinical Debridement Muscle / Fascia Subcutaneous -Tissue Removed Muscle Subcutaneous -Post Debridement (cm) - Length 3.0 3.3 -Post Debridement (cm) - Width 1.5 1.5 -Post Debridement (cm) - Depth 0.5 0.6 -Total Square (Post) (cm) 4.50 4.95 -Area of Debridement (cm) - Length 3.0 3.3 -Area of Debridement (cm) - Width 1.5 1.5 -Total Square (Area) (cm) 4.50 4.95 -Tunneling No No -Undermining/Tunneling No No -Circular Undermining No No -Wound/Ulcer Outcome Not Healed Not Healed -Ulcer Cleansing Rinsed/ Rinsed/ Irrigated with Irrigated with Saline Saline -Foul Odor after Cleansing No No -Bioengineered Tissue No No -Bleeding Controlled with Pressure Pressure -Treatment Response Procedure Procedure Tolerated Well Tolerated Well -Offloading No -Debridement - Subq, 1st 20sq cm Yes -Debridement - Muscle / Fascia, 1st Yes 20sq cm Pain Scale: 0-10 Numeric Is Patient Pain Free? Yes Yes - Nurse 3 - General Ulcer D/C NN Start: 08/10/24 13:10 Freq: Status: Active Protocol: Activity Type Activity Date Activity User E-sign Co-sign Detail Recorded Client Recorded Date Recorded By Document 08/10/24 13:59 KW [id number] 08/10/24 14:01 KW Document 08/17/24 13:34 ML [id number] 08/17/24 13:35 ML 08/10/24 08/17/24 13:59 13:34 Wound Care Center Nurse 3 #2 Right inferior ankle CLUSTER -Ulcer Cleansing Rinsed/ Irrigated with Saline -Primary Dressing Applied Promogran Promogran Amy Matter, Amy Matter Silicone Border Foam 4x4 -Promogran Amy Matter 1 2 -Silicone Border Foam 4x4 1 1 RLE -Tubular Bandage Single Layer -Size of Tubigrip Used Size E -Size E ($) 1 Pain Scale: 0-10 Numeric Is Patient Pain Free? Yes Yes Assessment/Plan Assessment/Plan (1) Venous insufficiency of both lower extremities: CODE(S): I87.2 - Venous insufficiency (chronic) (peripheral) (2) Ulcer of right ankle: CODE(S): L97.319 - Non-pressure chronic ulcer of right ankle with unspecified severity PLAN: ulcer of the right anterior ankle with to the muscle layer PLAN: Plan Obtained updated wound culture today. Continue current empiric antibiotic regimen. For wound care, will continue to apply lightly moistened Amy followed by kerlix wrap. She has very sensitive skin, will utilize silicone tape or tape only dressings and avoid taping skin. Change daily or more often as needed to keep clean and dry. With dressing changes, wash the area with antibacterial soap and water, pat gently to dry well. No submerging the wound in water such as to take a bath, go swimming, etc. Will continue medium strength single layer tubigrip for compression. She will return in 1 week.
== END 2024-08-28 23:59 | disposition home or self-care (01) ==
LOC: WC 13:00
PROVIDERS: PCP Nurse Practitioner Family; Referring Provider Nurse Practitioner Family; Visit Provider Physician Assistant
DX: L97.312 Non-pressure chronic ulcer of right ankle with fat layer exposed (principal); I87.2 Venous insufficiency (chronic) (peripheral); Z79.01 Long term (current) use of anticoagulants; Z95.0 Presence of cardiac pacemaker
CPT/HCPCS: 11042; 11043; 87070; 87075; 87205

== ENCOUNTER 2024-09-14 13:15 | Outpatient (RCR) | payer MEDICARE, SELFPAY ==
[2024-08-29 00:13] VITALS: BP 117/56; PULSE 74; RESP 14; TEMP 36.2
[2024-08-31 13:05] VITALS: BP 139/44; PULSE 64; RESP 16; TEMP 36.2
--- NOTE | 2024-08-31 13:29 | PCM.WC.PN ---
History of Present Illness Date of Service: 08/31/24 Chief Complaint: R posterolateral calf wound History of Wound: Jhoana Nieves is a 78 y/o female who presents today for evaluation and management of a right posterolateral calf wound. She is accompanied to her appointment today by two family members. She is known to me from the vascular office where I have seen her for suspected venous insufficiency where I ordered venous reflux study which she is not scheduled to complete until 04/19. She reports that shortly after I saw her in the office in December, she developed this R calf wound. She thinks that she may have bumped this area of her leg. At home, she has been applying B&W ointment and other various herb salves without much improvement. She was started on some antibiotic by her PCP which she did not tolerate well, she cannot recall what antibiotic that was but she thinks she still has the bottle at home. She recently was seen for this wound in urgent care 03/20 at which time cultures were obtained. She was empirically started on Amoxicillin 875mg BID x 14 days which she is tolerating so far. The cultures ultimately grew lerma-sensitive E. coli. She notes mild to moderate drainage from the wound. She denies any spreading erythema, foul odor, acutely worsened edema, N/V, F/C. She is not diabetic. She does not smoke. Medical history is otherwise significant for A-fib (chronically anticoagulated with Coumadin), sick sinus syndrome status post pacemaker placement (2008). Subjective Subjective Jhoana reports her wound is doing much better this week. Redness and pain have improved. The wound size also appears to be improving and drainage has been less. She is tolerating the antibiotics, will be completing her 4th week this week; really just started noticing improvement last week. She did call me last week stating it burned when she applied the Amy/Pomogran. I told her to stop this and after she did her wound discomfort improved significantly. Objective Data Objective Data Vital Signs: Vital Signs Temp Pulse Resp BP O2 Del Method 97.2 F L 64 16 139/44 H Room Air 08/31/24 13:05 08/31/24 13:05 08/31/24 13:05 08/31/24 13:05 08/31/24 13:05 Oxygen Delivery Method Room Air Charges/Coding Procedures Integumentary 111xxx-113xx: 87036 Jazzy musc/fascia 20 sq cm/< Physical Exam Const alert, oriented x3 and no apparent distress General Appearance: cooperative and comfortable HEENT normocephalic, hearing grossly normal bilaterally, external ears normal and external nose normal Eyes EOMs intact bilaterally General Eye: normal appearance of both eyes Neck General: normal visual inspection and trachea midline Resp normal respiratory effort, normal air movement, no retractions and no use of accessory muscles Effort and Inspection: able to speak in complete sentences Cardio regular rate and regular rhythm Extremity General Extremity: edema bilateral Peripheral Pulses: Yes dorsalis pedis pulses present Skin Wounds: wounds noted Wound Narrative: Right posterolateral calf wound remains healed. R anterior baird/ankle wound cluster, proximal portion is now epithelialized though a depressed scar, no opening. The distal portion has small opening remaining with now fully granular base with no visible connective tissue. The prior pinhole openings appear closed. The erythema is much improved. Induration resolved. Neuro oriented x3, CN's II-XII intact bilaterally, moves all extremities, no focal motor deficits and no sensory deficits noted Psych mental status grossly normal Attitude: calm and engaged Activity / Motor Behavior: appropriate eye contact Speech: normal speech Mood & Affect: euthymic mood Judgement: judgement good Debridement Note Debridement Note Wound debrided: Right anterior calf wound Laterality: Right Type of Debridement: Excisional debridement Anesthesia Used: 4% Lidocaine Solution and 5% Lidocaine Gel Depth: Down to and including healthy tissue and in the subcutaneous layer Percentage of wound debrided: 100 Instrument Used: 3mm curette Tissue Removed: slough, devitalized tissue Severity: Fat Layer Exposed Amount of bleeding with debridement: Mild Bleeding Controlled with: Pressure Patient tolerated procedure: Patient tolerated procedure well Post-Debridement Measurements and Additional Note: Post-Debridement Measurements/Treatment - Nurse 1 - General Ulcer Assessment Start: 08/31/24 13:05 Freq: Status: Active Protocol: JAIME Activity Type Activity Date Activity User E-sign Co-sign Detail Recorded Client Recorded Date Recorded By Document 08/31/24 13:05 PAULO [id number] 08/31/24 13:10 PAULO 08/31/24 13:05 - Today's Visit Information Type of service Follow-up Visit (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 ) Arrival Mode Ambulatory Transfer Assistance None Patient Identification Verified (Name & Yes ) Patient Requires Transmission-Based No Precautions Vital Signs Temperature (97.8 F-99.1 F) 97.2 F L Temperature Source Temporal Pulse Rate (60-100) 64 Pulse Location Monitor Respiratory Rate (12-18) 16 Respiratory rate source Observation Oxygen Delivery Method Room Air Blood Pressure (90/60-120/80) 139/44 H Blood Pressure Mean (mm Hg) 75 Source Monitor Position Sitting Blood Pressure Location Left Arm History Since Last Visit- (Skip if this is Patient's initial visit) Have you changed medications since your No last visit? Any new allergies or adverse reactions No Had a fall/change in ADL's that may No increase risk of falls Signs or symptoms of abuse and/or No neglect since last visit Have you been in the hospital since your No last visit? Has dressing in place as prescribed Yes Has compression in place as prescribed N/A Has offloadiing in place as prescribed N/A Experienced any changes in pain level or No management Left Footwear Regular Shoe Right Footwear Regular Shoe Pain Scale: 0-10 Numeric Is Patient Pain Free? Yes WC - Nurse 1 - General Ulcer Measurement Start: 08/31/24 13:05 Freq: Status: Active Protocol: Activity Type Activity Date Activity User E-sign Co-sign Detail Recorded Client Recorded Date Recorded By Document 08/31/24 13:05 [id number] 08/31/24 13:10 KW 08/31/24 13:05 Wound Center Nurse 1 #2 Right inferior ankle CLUSTER -Combined with other wound No -Current Size (cm) - Length 3 -Current Size (cm) - Width 1 -Current Size (cm) - Depth 0.4 -Total Square Cm 3 -Date of Last Picture (Recall this 08/31/24 field) -Photo Taken Yes -Tunneling No -Undermining/Tunneling No -Circular Undermining No -Exudate Amt Medium -Exudate Type Serosanguineous -Wound Margin Thickened -Granulation Amt Medium (34-66%) -Granulation Quality Red -Slough/Fibrin Yes -Necrosis Amt Medium (34-66%) -Necrotic Tissue Type Adherent Slough -Texture (Alpa-wound Skin Appearance) Assessed, Scarring -Moisture (Alpa-wound Skin Appearance) Assessed -Color (Alpa-wound Skin Appearance) Assessed -Temperature (Alpa-wound Skin No Abnormality Appearance) (Pt Warm) -Tenderness on Palpation (Alpa-wound No Skin Appearance) -Ulcer Cleansing Soap and Water -Foul Odor after Cleansing No -Anesthetic Used 5% Lidocaine Gel WC - Nurse 2 - General Ulcer CM Notes Start: 08/31/24 13:05 Freq: Status: Active Protocol: Activity Type Activity Date Activity User E-sign Co-sign Detail Recorded Client Recorded Date Recorded By Document 08/31/24 13:19 [id number] 08/31/24 13:24 GM 08/31/24 13:19 Wound Center Nurse 2 -Time 13:19 -Correct Patient Yes -Correct Side, Site, Position Yes -Correct Procedure Yes -Procedure Performed Yes -Type of Procedure Debridement -Clinical Debridement Subcutaneous -Tissue Removed Subcutaneous -Post Debridement (cm) - Length 0.7 -Post Debridement (cm) - Width 0.4 -Post Debridement (cm) - Depth 0.4 -Total Square (Post) (cm) 0.28 -Area of Debridement (cm) - Length 0.7 -Area of Debridement (cm) - Width 0.4 -Total Square (Area) (cm) 0.28 -Tunneling No -Undermining/Tunneling No -Circular Undermining No -Wound/Ulcer Outcome Not Healed -Ulcer Cleansing Rinsed/ Irrigated with Saline -Foul Odor after Cleansing No -Bioengineered Tissue No -Bleeding Controlled with Pressure -Treatment Response Procedure Tolerated Well -Debridement - Subq, 1st 20sq cm Yes Pain Scale: 0-10 Numeric Is Patient Pain Free? Yes Assessment/Plan Assessment/Plan (1) Venous insufficiency of both lower extremities: CODE(S): I87.2 - Venous insufficiency (chronic) (peripheral) (2) Ulcer of right ankle: CODE(S): L97.319 - Non-pressure chronic ulcer of right ankle with unspecified severity PLAN: ulcer of the right anterior ankle with to the muscle layer PLAN: Plan Will continue antibiotics for 1 more week for 5 total weeks. I did provide a refill so if she stops and has quickly recurrent symptoms she can refill this and restart antibiotics prior to her next appointment. For wound care, will change to Fibracol followed by kerlix wrap. She has very sensitive skin, will utilize silicone tape or tape only dressings and avoid taping skin. Change daily or more often as needed to keep clean and dry. With dressing changes, wash the area with antibacterial soap and water, pat gently to dry well. No submerging the wound in water such as to take a bath, go swimming, etc. Will continue medium strength single layer tubigrip for compression. She will return in 2 weeks.
--- NOTE | 2024-09-01 10:53 | WC ---
PHOTO 08/31/24 RIGHT LE CLUSTER
[2024-09-14 13:18] VITALS: BP 137/59; PULSE 77; RESP 18; TEMP 35.9
--- NOTE | 2024-09-14 13:44 | PN.PCM_ITS ---
History of Present Illness Date of Service: 09/14/24 Chief Complaint: R posterolateral calf wound History of Wound: Jhoana Nieves is a 78 y/o female who presents today for evaluation and management of a right posterolateral calf wound. She is accompanied to her appointment today by two family members. She is known to me from the vascular office where I have seen her for suspected venous insufficiency where I ordered venous reflux study which she is not scheduled to complete until 04/19. She reports that shortly after I saw her in the office in December, she developed this R calf wound. She thinks that she may have bumped this area of her leg. At home, she has been applying B&W ointment and other various herb salves without much improvement. She was started on some antibiotic by her PCP which she did not tolerate well, she cannot recall what antibiotic that was but she thinks she still has the bottle at home. She recently was seen for this wound in urgent care 03/20 at which time cultures were obtained. She was empirically started on Amoxicillin 875mg BID x 14 days which she is tolerating so far. The cultures ultimately grew lerma-sensitive E. coli. She notes mild to moderate drainage from the wound. She denies any spreading erythema, foul odor, acutely worsened edema, N/V, F/C. She is not diabetic. She does not smoke. Medical history is otherwise significant for A-fib (chronically anticoagulated with Coumadin), sick sinus syndrome status post pacemaker placement (2008). Subjective Subjective Jhoana reports her wound is about stable this week. Erythema and pain have continued to improve. She has 2 days left on her current antibiotic regimen, this will complete 6 weeks of therapy. No new wounds have opened up, not much drainage. Objective Data Objective Data Vital Signs: Vital Signs Temp Pulse Resp BP O2 Del Method 96.7 F L 77 18 137/59 H Room Air 09/14/24 13:18 09/14/24 13:18 09/14/24 13:18 09/14/24 13:18 08/31/24 13:05 Oxygen Delivery Method Room Air Charges/Coding Procedures Integumentary 111xxx-113xx: [id number] Jazzy musc/fascia 20 sq cm/< Physical Exam Const alert, oriented x3 and no apparent distress General Appearance: cooperative and comfortable HEENT normocephalic, hearing grossly normal bilaterally, external ears normal and external nose normal Eyes EOMs intact bilaterally General Eye: normal appearance of both eyes Neck General: normal visual inspection and trachea midline Resp normal respiratory effort, normal air movement, no retractions and no use of accessory muscles Effort and Inspection: able to speak in complete sentences Cardio regular rate and regular rhythm Extremity General Extremity: edema bilateral Peripheral Pulses: Yes dorsalis pedis pulses present Skin Wounds: wounds noted Wound Narrative: Right posterolateral calf wound remains healed. R anterior baird/ankle wound cluster, proximal portion is now epithelialized though a depressed scar, no opening. The distal portion has small opening remaining with now fully granular base with no visible connective tissue. The prior pinhole openings appear closed. The erythema is much improved. Induration resolved. Neuro oriented x3, CN's II-XII intact bilaterally, moves all extremities, no focal motor deficits and no sensory deficits noted Psych mental status grossly normal Attitude: calm and engaged Activity / Motor Behavior: appropriate eye contact Speech: normal speech Mood & Affect: euthymic mood Judgement: judgement good Debridement Note Debridement Note Wound debrided: Right anterior calf wound Laterality: Right Type of Debridement: Excisional debridement Anesthesia Used: 4% Lidocaine Solution and 5% Lidocaine Gel Depth: Down to and including healthy tissue and in the subcutaneous layer Percentage of wound debrided: 100 Instrument Used: 3mm curette Tissue Removed: slough, devitalized tissue Severity: Fat Layer Exposed Amount of bleeding with debridement: Mild Bleeding Controlled with: Pressure Patient tolerated procedure: Patient tolerated procedure well Post-Debridement Measurements and Additional Note: Post-Debridement Measurements/Treatment - Nurse 1 - General Ulcer Assessment Start: 08/31/24 13:05 Freq: Status: Active Protocol: JAIME Activity Type Activity Date Activity User E-sign Co-sign Detail Recorded Client Recorded Date Recorded By Document 08/31/24 13:05 KW [id number] 08/31/24 13:10 KW Document 09/14/24 13:18 DL [id number] 09/14/24 13:26 DL 08/31/24 09/14/24 13:05 13:18 - Today's Visit Information Type of service Follow-up Visit 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-up Visit (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/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 SERVICES SUPERVISOR ) ) Arrival Mode Ambulatory Ambulatory Transfer Assistance None None Patient Identification Verified (Name & Yes Yes ) Patient Requires Transmission-Based No No Precautions Vital Signs Temperature (97.8 F-99.1 F) 97.2 F L 96.7 F L Temperature Source Temporal Temporal Pulse Rate (60-100) 64 77 Pulse Location Monitor Monitor Respiratory Rate (12-18) 16 18 Respiratory rate source Observation Observation Oxygen Delivery Method Room Air Blood Pressure (90/60-120/80) 139/44 H 137/59 H Blood Pressure Mean (mm Hg) 75 85 Source Monitor Monitor Position Sitting Blood Pressure Location Left Arm History Since Last Visit- (Skip if this is Patient's initial visit) Have you changed medications since your No No last visit? Any new allergies or adverse reactions No No Had a fall/change in ADL's that may No No increase risk of falls Signs or symptoms of abuse and/or No No neglect since last visit Have you been in the hospital since your No No last visit? Has dressing in place as prescribed Yes Yes Has compression in place as prescribed N/A Yes Has offloadiing in place as prescribed N/A N/A Experienced any changes in pain level or No management Left Footwear Regular Shoe Regular Shoe Right Footwear Regular Shoe Regular Shoe Pain Scale: 0-10 Numeric Is Patient Pain Free? Yes Yes WC - Nurse 1 - General Ulcer Measurement Start: 08/31/24 13:05 Freq: Status: Active Protocol: Activity Type Activity Date Activity User E-sign Co-sign Detail Recorded Client Recorded Date Recorded By Document 08/31/24 13:05 KW [id number] 08/31/24 13:10 KW Document 09/14/24 13:18 DL [id number] 09/14/24 13:26 DL 08/31/24 09/14/24 13:05 13:18 Wound Center Nurse 1 #2 Right inferior ankle CLUSTER -Combined with other wound No -Current Size (cm) - Length 3 0.6 -Current Size (cm) - Width 1 0.5 -Current Size (cm) - Depth 0.4 0.2 -Total Square Cm 3 0.30 -Date of Last Picture (Recall this 08/31/24 field) -Photo Taken Yes Yes -Tunneling No -Undermining/Tunneling No -Circular Undermining No -Exudate Amt Medium Small -Exudate Type Serosanguineous -Wound Margin Thickened Distinct, Outline Attached -Granulation Amt Medium (34-66%) Small (1-33%) -Granulation Quality Red Pale,[place] -Slough/Fibrin Yes -Necrosis Amt Medium (34-66%) Small (1-33%) -Necrotic Tissue Type Adherent Slough Adherent Slough -Structure Exposed N/A -Texture (Alpa-wound Skin Appearance) Assessed, Scarring Scarring -Moisture (Alpa-wound Skin Appearance) Assessed No Abnormality -Color (Alpa-wound Skin Appearance) Assessed No Abnormality -Temperature (Alpa-wound Skin No Abnormality No Abnormality Appearance) (Pt Warm) (Pt Warm) -Tenderness on Palpation (Alpa-wound No No Skin Appearance) -Ulcer Cleansing Soap and Water Rinsed/ Irrigated with Saline -Foul Odor after Cleansing No No -Anesthetic Used 5% Lidocaine 5% Lidocaine Gel Gel Right Calf (cm) 32.5 Right Ankle (cm) 19.3 WC - Nurse 2 - General Ulcer CM Notes Start: 08/31/24 13:05 Freq: Status: Active Protocol: Activity Type Activity Date Activity User E-sign Co-sign Detail Recorded Client Recorded Date Recorded By Document 08/31/24 13:19 [id number] 08/31/24 13:24 Document 09/14/24 13:31 [id number] 09/14/24 13:37 08/31/24 09/14/24 13:19 13:31 Wound Center Nurse 2 #2 Right inferior ankle CLUSTER -Time 13:19 13:32 -Correct Patient Yes Yes -Correct Side, Site, Position Yes Yes -Correct Procedure Yes Yes -Procedure Performed Yes Yes -Type of Procedure Debridement Debridement -Clinical Debridement Subcutaneous Subcutaneous -Tissue Removed Subcutaneous Subcutaneous -Post Debridement (cm) - Length 0.7 2.0 -Post Debridement (cm) - Width 0.4 0.5 -Post Debridement (cm) - Depth 0.4 0.4 -Total Square (Post) (cm) 0.28 1.00 -Area of Debridement (cm) - Length 0.7 2.0 -Area of Debridement (cm) - Width 0.4 0.5 -Total Square (Area) (cm) 0.28 1.00 -Tunneling No No -Undermining/Tunneling No No -Circular Undermining No No -Wound/Ulcer Outcome Not Healed Not Healed -Ulcer Cleansing Rinsed/ Rinsed/ Irrigated with Irrigated with Saline Saline -Foul Odor after Cleansing No No -Bioengineered Tissue No No -Bleeding Controlled with Pressure Pressure -Treatment Response Procedure Procedure Tolerated Well Tolerated Well -Offloading No -Debridement - Subq, 1st 20sq cm Yes Yes Pain Scale: 0-10 Numeric Is Patient Pain Free? Yes Yes - Nurse 3 - General Ulcer D/C NN Start: 08/31/24 13:05 Freq: Status: Active Protocol: Activity Type Activity Date Activity User E-sign Co-sign Detail Recorded Client Recorded Date Recorded By Document 08/31/24 13:33 [facility] [id number] 08/31/24 13:34 [facility] 08/31/24 13:33 Wound Care Center Nurse 3 #2 Right inferior ankle CLUSTER -Ulcer Cleansing Rinsed/ Irrigated with Saline -Foul Odor after Cleansing No -Primary Dressing Applied Fibracol Plus 4x4,Silicone Border Foam 4x4 -Fibracol Plus 4x4 1 -Silicone Border Foam 4x4 1 RLE -Tubular Bandage Single Layer -Size of Tubigrip Used Size D -Size D ($) 1 Treatment Response Procedure Tolerated Well Pain Scale: 0-10 Numeric Is Patient Pain Free? Yes - Visit Discharge Discharge Condition Stable Ambulatory Status Ambulatory Transportation Private Auto Assessment/Plan Assessment/Plan (1) Venous insufficiency of both lower extremities: CODE(S): I87.2 - Venous insufficiency (chronic) (peripheral) (2) Ulcer of right ankle: CODE(S): L97.319 - Non-pressure chronic ulcer of right ankle with u nspecified severity PLAN: ulcer of the right anterior ankle with to the muscle layer PLAN: Plan She will complete antibiotics as prescribed. She will call sooner if she has recurrent signs of infection. She also has a refill of her antibiotics so if this occurs on a weekend she can fill this and restart; to ER if N/V, F/C, rapidly spreading erythema. For wound care, will continue with Fibracol followed by kerlix wrap. She has very sensitive skin, will utilize silicone tape or tape only dressings and avoid taping skin. Change daily or more often as needed to keep clean and dry. With dressing changes, wash the area with antibacterial soap and water, pat gently to dry well. No submerging the wound in water such as to take a bath, go swimming, etc. Will next visit consider Puraply or similar. Will continue medium strength single layer tubigrip for compression. She will return in 2 weeks.
== END 2024-09-27 23:59 | disposition home or self-care (01) ==
LOC: WC 13:15
PROVIDERS: PCP Nurse Practitioner Family; Referring Provider Nurse Practitioner Family; Visit Provider Physician Assistant
DX: I87.2 Venous insufficiency (chronic) (peripheral) (principal); L97.312 Non-pressure chronic ulcer of right ankle with fat layer exposed; L97.212 Non-pressure chronic ulcer of right calf with fat layer exposed; I48.91 Unspecified atrial fibrillation; Z79.01 Long term (current) use of anticoagulants; Z95.0 Presence of cardiac pacemaker
CPT/HCPCS: 11042

== ENCOUNTER 2024-09-14 14:01 | Outpatient (RCR) | payer MEDICARE, SELFPAY ==
[2024-08-28 22:00] VITALS: BMI 23.6
[2024-08-30 12:14] LABS: International Normalized Ratio 1.8; Prothrombin Time (Protime)PT. 21.4 SECONDS (11.7-14.9)
[2024-09-14 14:41] LABS: International Normalized Ratio 2.3; Prothrombin Time (Protime)PT. 25.4 SECONDS (11.7-14.9)
== END 2024-09-27 18:00 | disposition home or self-care (01) ==
LOC: LAB 14:01
PROVIDERS: Family Provider Family Medicine; PCP Nurse Practitioner Family; Referring Provider Internal Medicine Cardiovascular Disease; Visit Provider Internal Medicine Cardiovascular Disease
DX: I48.0 Paroxysmal atrial fibrillation (principal); Z79.01 Long term (current) use of anticoagulants; I87.2 Venous insufficiency (chronic) (peripheral); L97.312 Non-pressure chronic ulcer of right ankle with fat layer exposed; L97.212 Non-pressure chronic ulcer of right calf with fat layer exposed; Z95.0 Presence of cardiac pacemaker
CPT/HCPCS: 11042; 36415; 85610

== ENCOUNTER 2024-10-05 13:38 | Outpatient (RCR) | payer MEDICARE, SELFPAY ==
[2024-09-27 20:51] VITALS: BMI 23.6
[2024-10-05 15:16] LABS: International Normalized Ratio 2.2; Prothrombin Time (Protime)PT. 24.9 SECONDS (11.7-14.9)
== END 2024-10-05 18:00 | disposition home or self-care (01) ==
LOC: LAB 13:38
PROVIDERS: Family Provider Family Medicine; PCP Nurse Practitioner Family; Referring Provider Internal Medicine Cardiovascular Disease; Visit Provider Internal Medicine Cardiovascular Disease
DX: Z79.01 Long term (current) use of anticoagulants; I87.2 Venous insufficiency (chronic) (peripheral); L97.312 Non-pressure chronic ulcer of right ankle with fat layer exposed; L97.212 Non-pressure chronic ulcer of right calf with fat layer exposed; I48.91 Unspecified atrial fibrillation; Z95.0 Presence of cardiac pacemaker
CPT/HCPCS: 11042; 36415; 85610

== ENCOUNTER 2024-10-26 13:15 | Outpatient (RCR) | payer MEDICARE, SELFPAY ==
[2024-09-28 00:08] VITALS: BP 137/59; PULSE 77; RESP 18; TEMP 35.9
[2024-10-05 13:01] VITALS: BP 141/62; PULSE 62; RESP 18; TEMP 36.4
--- NOTE | 2024-10-05 13:33 | PN.PCM_ITS ---
History of Present Illness Date of Service: 10/05/24 Chief Complaint: R posterolateral calf wound History of Wound: Jhoana Nieves is a 78 y/o female who presents today for evaluation and management of a right posterolateral calf wound. She is accompanied to her appointment today by two family members. She is known to me from the vascular office where I have seen her for suspected venous insufficiency where I ordered venous reflux study which she is not scheduled to complete until 04/19. She reports that shortly after I saw her in the office in December, she developed this R calf wound. She thinks that she may have bumped this area of her leg. At home, she has been applying B&W ointment and other various herb salves without much improvement. She was started on some antibiotic by her PCP which she did not tolerate well, she cannot recall what antibiotic that was but she thinks she still has the bottle at home. She recently was seen for this wound in urgent care 03/20 at which time cultures were obtained. She was empirically started on Amoxicillin 875mg BID x 14 days which she is tolerating so far. The cultures ultimately grew lerma-sensitive E. coli. She notes mild to moderate drainage from the wound. She denies any spreading erythema, foul odor, acutely worsened edema, N/V, F/C. She is not diabetic. She does not smoke. Medical history is otherwise significant for A-fib (chronically anticoagulated with Coumadin), sick sinus syndrome status post pacemaker placement (2008). Subjective Subjective Jhoana returns today for evaluation of her R baird wound. She has not noticed any drainage from the wound in the last week, she thinks it may be healed. She has not had any recurrent erythema, excess tenderness, warmth or swelling around the wound since completing her last antibiotic regimen. No new wounds. Objective Data Objective Data Vital Signs: Vital Signs Temp Pulse Resp BP 97.6 F L 62 18 141/62 H 10/05/24 13:01 10/05/24 13:01 10/05/24 13:01 10/05/24 13:01 Charges/Coding Procedures Integumentary [id number]: [id number] Jazzy subq tissue 20 sq cm/< Physical Exam Const alert, oriented x3 and no apparent distress General Appearance: cooperative and comfortable HEENT normocephalic, hearing grossly normal bilaterally, external ears normal and external nose normal Eyes EOMs intact bilaterally General Eye: normal appearance of both eyes Neck General: normal visual inspection and trachea midline Resp normal respiratory effort, normal air movement, no retractions and no use of accessory muscles Effort and Inspection: able to speak in complete sentences Cardio regular rate and regular rhythm Extremity General Extremity: edema bilateral Peripheral Pulses: Yes dorsalis pedis pulses present Skin Wounds: wounds noted Wound Narrative: Right posterolateral calf wound remains healed. R anterior baird/ankle wound cluster, proximal portion remains epithelialized though a depressed scar. The distal portion has small opening remaining with now fully granular base with no visible connective tissue, depth appears improved. The prior pinhole openings remain closed. There is no induration, erythema, excess warmth, focal edema. Neuro oriented x3, CN's II-XII intact bilaterally, moves all extremities, no focal motor deficits and no sensory deficits noted Psych mental status grossly normal Attitude: calm and engaged Activity / Motor Behavior: appropriate eye contact Speech: normal speech Mood & Affect: euthymic mood Judgement: judgement good Debridement Note Debridement Note Wound debrided: Right anterior baird wound Laterality: Right Type of Debridement: Excisional debridement Anesthesia Used: 4% Lidocaine Solution and 5% Lidocaine Gel Depth: Down to and including healthy tissue and in the subcutaneous layer Percentage of wound debrided: 100 Instrument Used: 3mm curette Tissue Removed: slough, devitalized tissue Severity: Fat Layer Exposed Amount of bleeding with debridement: Mild Bleeding Controlled with: Pressure Patient tolerated procedure: Patient tolerated procedure well Post-Debridement Measurements and Additional Note: Post-Debridement Measurements/Treatment - Nurse 1 - General Ulcer Assessment Start: 10/05/24 13:01 Freq: Status: Active Protocol: JAIME Activity Type Activity Date Activity User E-sign Co-sign Detail Recorded Client Recorded Date Recorded By Document 10/05/24 13:01 DL [id number] 10/05/24 13:06 DL 10/05/24 13:01 - Today's Visit Information Type of service Follow-up Visit (Physician/[employer] MANAGER ) Arrival Mode Ambulatory Transfer Assistance None Patient Identification Verified (Name & Yes ) Patient Requires Transmission-Based No Precautions Vital Signs Temperature (97.8 F-99.1 F) 97.6 F L Temperature Source Temporal Pulse Rate (60-100) 62 Pulse Location Monitor Respiratory Rate (12-18) 18 Respiratory rate source Observation Blood Pressure (90/60-120/80) 141/62 H Blood Pressure Mean (mm Hg) 88 Source Monitor History Since Last Visit- (Skip if this is Patient's initial visit) Have you changed medications since your No last visit? Any new allergies or adverse reactions No Had a fall/change in ADL's that may No increase risk of falls Signs or symptoms of abuse and/or No neglect since last visit Have you been in the hospital since your No last visit? Has dressing in place as prescribed Yes Has compression in place as prescribed Yes Has offloadiing in place as prescribed Yes Experienced any changes in pain level or No management Pain Scale: 0-10 Numeric Is Patient Pain Free? Yes WC - Nurse 1 - General Ulcer Measurement Start: 10/05/24 13:01 Freq: Status: Active Protocol: Activity Type Activity Date Activity User E-sign Co-sign Detail Recorded Client Recorded Date Recorded By Document 10/05/24 13:01 DL [id number] 10/05/24 13:06 DL 10/05/24 13:01 Wound Center Nurse 1 #2 Right inferior ankle CLUSTER -Current Size (cm) - Length 0.1 -Current Size (cm) - Width 0.1 -Current Size (cm) - Depth 0.1 -Total Square Cm 0.01 -Photo Taken Yes -Exudate Amt None Present -Wound Margin Distinct, Outline Attached -Granulation Amt Medium (34-66%) -Granulation Quality Pale,Truchas -Necrosis Amt None Present (0 %) -Structure Exposed N/A -Texture (Alpa-wound Skin Appearance) Scarring -Moisture (Alpa-wound Skin Appearance) No Abnormality -Color (Alpa-wound Skin Appearance) No Abnormality -Temperature (Alpa-wound Skin No Abnormality Appearance) (Pt Warm) -Tenderness on Palpation (Alpa-wound No Skin Appearance) -Ulcer Cleansing Rinsed/ Irrigated with Saline -Foul Odor after Cleansing No Right Calf (cm) 33 Right Ankle (cm) 19.5 WC - Nurse 2 - General Ulcer CM Notes Start: 10/05/24 13:01 Freq: Status: Active Protocol: Activity Type Activity Date Activity User E-sign Co-sign Detail Recorded Client Recorded Date Recorded By Document 10/05/24 13:17 [id number] 10/05/24 13:19 10/05/24 13:17 Wound Center Nurse 2 #2 Right inferior ankle CLUSTER -Time 13:17 -Correct Patient Yes -Correct Side, Site, Position Yes -Correct Procedure Yes -Procedure Performed Yes -Type of Procedure Debridement -Clinical Debridement Subcutaneous -Tissue Removed Subcutaneous -Post Debridement (cm) - Length 0.6 -Post Debridement (cm) - Width 0.5 -Post Debridement (cm) - Depth 0.3 -Total Square (Post) (cm) 0.30 -Area of Debridement (cm) - Length 0.6 -Area of Debridement (cm) - Width 0.5 -Total Square (Area) (cm) 0.30 -Tunneling No -Undermining/Tunneling No -Circular Undermining No -Wound/Ulcer Outcome Not Healed -Ulcer Cleansing Not Cleansed -Foul Odor after Cleansing No -Bioengineered Tissue No -Bleeding Controlled with Pressure -Treatment Response Procedure Tolerated Well -Offloading No -Debridement - Subq, 1st 20sq cm Yes Pain Scale: 0-10 Numeric Is Patient Pain Free? Yes - Nurse 3 - General Ulcer D/C NN Start: 10/05/24 13:01 Freq: Status: Active Protocol: Activity Type Activity Date Activity User E-sign Co-sign Detail Recorded Client Recorded Date Recorded By Document 10/05/24 13:23 KW [id number] 10/05/24 13:23 KW Edit Result 10/05/24 13:23 KW (1) [id number] 10/05/24 13:30 KW (1) #2 Right inferior ankle CLUSTER - Primary Dressing Applied Silicone Border => Fibracol Plus 4x4 Foam 4x4 => - Other Dressing pt own fibracol => - Fibracol Plus 4x4 => 1 - Silicone Border Foam 4x4 1 => 10/05/24 13:23 Wound Care Center Nurse 3 #2 Right inferior ankle CLUSTER -Primary Dressing Applied Fibracol Plus 4x4 -Fibracol Plus 4x4 1 RLE -Tubular Bandage Single Layer -Size of Tubigrip Used Size D -Size D ($) 1 Pain Scale: 0-10 Numeric Is Patient Pain Free? Yes - Visit Discharge Discharge Condition Stable Ambulatory Status Ambulatory Transportation Private Auto Medication Reconcilliation completed & No provided to patient/care provider Clinical Summary of Care Provided Yes Assessment/Plan Assessment/Plan (1) Venous insufficiency of both lower extremities: CODE(S): I87.2 - Venous insufficiency (chronic) (peripheral) (2) Ulcer of right ankle: CODE(S): L97.319 - Non-pressure chronic ulcer of right ankle with unspecified severity PLAN: ulcer of the right anterior ankle with to the muscle layer PLAN: Plan For wound care, will continue with Fibracol followed by kerlix wrap. She has very sensitive skin, will utilize silicone tape or tape only dressings and avoid taping skin. Change daily or more often as needed to keep clean and dry. With dressing changes, wash the area with antibacterial soap and water, pat gently to dry well. No submerging the wound in water such as to take a bath, go swimming, etc. Wound does appear to be improving and no signs of recurrent infection; however, not healed as she suspected. Debrided some adherent slough/dried drainage and some mild epibole about the edges. Will continue medium strength single layer tubigrip for compression. She will return in 3 weeks per her preference.
[2024-10-26 13:23] VITALS: BP 114/59; PULSE 79; RESP 16
--- NOTE | 2024-10-26 14:15 | PCM.WC.PN ---
History of Present Illness Date of Service: 10/26/24 Chief Complaint: R posterolateral calf wound History of Wound: Jhoana Nieves is a 78 y/o female who presents today for evaluation and management of a right posterolateral calf wound. She is accompanied to her appointment today by two family members. She is known to me from the vascular office where I have seen her for suspected venous insufficiency where I ordered venous reflux study which she is not scheduled to complete until 04/19. She reports that shortly after I saw her in the office in December, she developed this R calf wound. She thinks that she may have bumped this area of her leg. At home, she has been applying B&W ointment and other various herb salves without much improvement. She was started on some antibiotic by her PCP which she did not tolerate well, she cannot recall what antibiotic that was but she thinks she still has the bottle at home. She recently was seen for this wound in urgent care 03/20 at which time cultures were obtained. She was empirically started on Amoxicillin 875mg BID x 14 days which she is tolerating so far. The cultures ultimately grew lerma-sensitive E. coli. She notes mild to moderate drainage from the wound. She denies any spreading erythema, foul odor, acutely worsened edema, N/V, F/C. She is not diabetic. She does not smoke. Medical history is otherwise significant for A-fib (chronically anticoagulated with Coumadin), sick sinus syndrome status post pacemaker placement (2008). Subjective Subjective Jhoana thinks her wounds are healed this week. She has not had any drainage from her wound in over 1 week. She does not have any redness, swelling, excess warmth, or other signs of recurrent infection on the RLE. She does have two small areas of induration and mild redness and tenderness on her left lower leg, no associated wounds, these have been present 3-4 weeks now and stable without expansion. She denies constitutional symptoms. She has not had injury to the area. Objective Data Objective Data Vital Signs: Vital Signs Temp Pulse Resp BP O2 Del Method 97.6 F L 79 16 114/59 L Room Air 10/05/24 13:01 10/26/24 13:23 10/26/24 13:23 10/26/24 13:23 10/26/24 13:23 Oxygen Delivery Method Room Air Charges/Coding Visit Charges Office Visits / Consults: 23668 OV L3 Est 20min Physical Exam Const alert, oriented x3 and no apparent distress General Appearance: cooperative and comfortable HEENT normocephalic, hearing grossly normal bilaterally, external ears normal and external nose normal Eyes EOMs intact bilaterally General Eye: normal appearance of both eyes Neck General: normal visual inspection and trachea midline Resp normal respiratory effort, normal air movement, no retractions and no use of accessory muscles Effort and Inspection: able to speak in complete sentences Cardio regular rate and regular rhythm Extremity General Extremity: edema bilateral Peripheral Pulses: Yes dorsalis pedis pulses present Skin Wounds: wounds noted Wound Narrative: Right posterolateral calf wound remains healed. R anterior baird/ankle wound cluster is now fully epithelialized though with significantly depressed scar. There is no induration, erythema, excess warmth, focal edema. On the L medial calf and L anterolateral baird there are small, focal areas with induration to palpation, mild erythema but without any focal edema/fluctuance/skin breakdown. Neuro oriented x3, CN's II-XII intact bilaterally, moves all extremities, no focal motor deficits and no sensory deficits noted Psych mental status grossly normal Attitude: calm and engaged Activity / Motor Behavior: appropriate eye contact Speech: normal speech Mood & Affect: euthymic mood Judgement: judgement good Debridement Note Debridement Note No debridement was completed: No debridement was completed today Assessment/Plan Assessment/Plan (1) Venous insufficiency of both lower extremities: CODE(S): I87.2 - Venous insufficiency (chronic) (peripheral) (2) Ulcer of right ankle: CODE(S): L97.319 - Non-pressure chronic ulcer of right ankle with unspecified severity PLAN: ulcer of the right anterior ankle with to the muscle layer PLAN: Plan Her wounds are epithelialized today. She does have significant depressed scars, educated that she will need to be careful to keep these clean. Apply lotion daily. Can massage to help reduce scarring. With respect to the areas of concern on the L lower leg, not quite sure what to make of these. They do not align with obvious varicosity and she is chronically anticoagulated with Coumadin with reportedly therapeutic INRs making SVT less likely. She does not have associated wound or bites that I can see, there is no fluctuance, and these have been present and overall stable for about 1 month though which would suggest against abscess/infectious process. Will obtain soft tissue ultrasound to further evaluate. Will continue medium strength single layer tubigrip for compression. She is discharged from the wound healing center at this time. I will follow-up with her regarding soft tissue ultrasound results and pending these results and if these lesions persist will either arrange further follow-up here or recommend follow-up with her PCP.
--- NOTE | 2024-10-27 13:41 | WC ---
PHOTO 10/26/24 CODY LOMBARDI
--- NOTE | 2024-10-27 13:43 | WC ---
PHOTO 10/26/24 CODY LOMBARDI
== END 2024-10-26 15:12 | disposition home or self-care (01) ==
LOC: WC 13:15
PROVIDERS: PCP Nurse Practitioner Family; Referring Provider Nurse Practitioner Family; Visit Provider Physician Assistant
DX: L97.315 Non-pressure chronic ulcer of right ankle with muscle involvement without evidence of necrosis (principal); I87.2 Venous insufficiency (chronic) (peripheral); Z79.01 Long term (current) use of anticoagulants; Z90.5 Acquired absence of kidney
CPT/HCPCS: 11042; 99213; G0463

== ENCOUNTER 2024-11-02 10:54 | Emergency (ER) | payer MEDICARE, SELFPAY ==
[2024-11-02 10:56] VITALS: BP 137/49; PULSE 72; RESP 18; TEMP 36.9; O2SAT 94; BMI 26.8
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
[2024-11-02] MEDS: Ondansetron 4 MG/2 ML Vial IV (11:24)
[2024-11-02] MEDS: Morphine 4 MG/ML Syringe IV ×2 (11:24→12:43)
[2024-11-02] MEDS: Diphth,Pertuss(Acell),Tet Vac 0.5 ML Vial IM (11:28)
[2024-11-02] MEDS: Lidocaine 1% (20 ml mdv) 20 ML Vial INFILT (11:39)
[2024-11-02] MEDS: Lidocaine/Epi/Tetracaine 50 ML 1 APPLIC TOPICAL (11:39)
[2024-11-02 11:54] VITALS: BP 110/68; PULSE 87; RESP 18; O2SAT 98
[2024-11-02 12:00] VITALS: BP 106/64; PULSE 85; RESP 18; O2SAT 98
[2024-11-02 12:08] LABS: Absolute Lymphocyte Count 3.85 X10^3/uL (0.83-4.51); Absolute Neutrophil Count 3.4 X10^3/uL (2.0-7.7); Basophil# 0.12 X10^3/uL; Basophil% 1.4 % (0-1); Eosinophil# 0.31 X10^3/uL; Eosinophils% 3.6 % (0-5); Hematocrit 31.5 % (37-47); Hemoglobin 10.1 g/dL (12.0-15.0); Lymphocyte # 3.85 X10^3/ul (0.83-4.51); Lymphocyte % 45.3 % (19-41); Mean Corp Hgb Conc 32.1 g/dL (32-36); Mean Corpuscular Volume 99.7 fL (81-99); Mean Platelet Vol. 11.2 fl (6.2-12.0); Monocyte# 0.71 X10^3/uL; Monocyte% 8.4 % (0-10); NRBC Flagged by Analyzer 0.9 % (0-5); Neutrophil # 3.41 X10^3/uL (2.7-7.7); Neutrophil % 40.1 % (47-70); POSITIVE MORPHOLOGY YES; Platelet Count 253 K/mm3 (150-450); RBC Distribution Width SD 73.7 fl (35.1-43.9); Red Blood Count 3.16 M/mm3 (4.2-5.4); White Blood Count 8.5 K/mm3 (4.4-11.0)
[2024-11-02 12:09] LABS: Differential Indicated SCAN CRITERIA MET
[2024-11-02 12:13] LABS: International Normalized Ratio 2.6; Prothrombin Time (Protime)PT. 28.6 SECONDS (11.7-14.9)
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
[2024-11-02 12:20] LABS: ALB/GLOB Ratio 1.1 RATIO (0.9-2.4); AST(SGOT) 39 U/L (<=31); Alanine Aminotransfer ALT/SGPT 10 U/L (<=34); Albumin, Serum 3.9 g/dL (3.4-4.8); Alkaline Phosphatase 82 U/L (35-104); Anion Gap 18 (5-15); BUN 19 mg/dL (4-19); BUN/Creat Ratio 16.9 RATIO (10-20); Calcium,Total 9.4 mg/dL (7.6-11.0); Carbon Dioxide 20.3 mmol/L (21.0-32.0); Chloride 102 mmol/L (98-108); Creatinine, Serum 1.14 mg/dL (0.70-1.20); EST Glomerular Filtration Rate 49 (>60); Estimated Creatinine Clearance 39.28 ml/min (50-250); Globulin 3.4 g/dL (2.2-4.2); Glucose 132 mg/dL (70-99); Lipase 77 U/L (13-75); Potassium 3.7 mmol/L (3.3-5.1); Protein, Total 7.3 g/dL (5.9-8.4); Sodium Level 140 mmol/L (133-145)
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
--- NOTE | 2024-11-02 12:30 | RAD_ITS ---
EXAM: XR Right Shoulder Complete, 2 or More Views CLINICAL INDICATION: PAIN TECHNIQUE: Two or more views of the right shoulder. COMPARISON: No relevant prior studies available. FINDINGS: BONES/JOINTS: Healing fracture of the proximal humerus. No dislocation. SOFT TISSUES: Soft tissue swelling. RAD/Shoulder min 2 Views IMPRESSION: Healing fracture of the proximal humerus. Reading Location: [facility]
[2024-11-02 12:36] LABS: Anisocytosis 1+; Platelet Estimate A (ADEQ)
[2024-11-02 13:00] VITALS: BP 130/59; PULSE 70; RESP 18; O2SAT 98
[2024-11-02 14:02] VITALS: BP 147/59; PULSE 64; RESP 15; O2SAT 96
[2024-11-02] MEDS: HYDROcodone Bitartrate/Apap 5/325 Tablet PO (14:22)
[2024-11-02 15:03] VITALS: BP 124/62; PULSE 78; RESP 15; TEMP 36.6; O2SAT 99
== END 2024-11-02 15:06 | disposition home or self-care (01) ==
PROVIDERS: Physician Assistant; Emergency Provider Emergency Medicine; PCP Nurse Practitioner Family; Visit Provider Emergency Medicine
DX: S02.2XXA Fracture of nasal bones, initial encounter for closed fracture (principal); S80.01XA Contusion of right knee, initial encounter; S01.91XA Laceration without foreign body of unspecified part of head, initial encounter; S10.93XA Contusion of unspecified part of neck, initial encounter; S42.201A Unspecified fracture of upper end of right humerus, initial encounter for closed fracture; S80.02XA Contusion of left knee, initial encounter; S90.01XA Contusion of right ankle, initial encounter; Z79.01 Long term (current) use of anticoagulants; Z95.0 Presence of cardiac pacemaker; V18.0XXA Pedal cycle driver injured in noncollision transport accident in nontraffic accident, initial encounter
CPT/HCPCS: 12013; 70450; 70486; 70498; 71260; 72125; 73030; 73564; 73590; 73610; 74177; 80053; 83690; 85025; 85610; 90715; 96374; 96375; 96376; 99285; Q9967; A4216; J2405

== ENCOUNTER 2024-11-03 02:47 | Emergency (ER) | payer MEDICARE, SELFPAY ==
[2024-11-03 02:48] VITALS: BP 117/89; PULSE 70; RESP 17; TEMP 36.6; O2SAT 97; BMI 26.1
--- OUTSIDE RECORDS SUMMARY | 2024-11-03 03:09 | XMS RPT_ITS | CCD ---
Author Organization [facility] Care Team Providers Care Supply Officer Name Role Phone Naomi RN, Nieves Lazaro Unavailable Unavailable Naomi GOMEZ, Nieves Lazaro Unavailable Unavailable PATRICIA Schreiber, Ashly Garvin Unavailable Unavailabl e Abdoul RN, Ashly M Unavailable Unavailabl irma Salgado RN, Nieves A Unavailable Unavailable PATRICIA Schreiber, Ashly M Unavailable Unavailruy Schreiber RN, Ashly M Unavailable Unavailruy Schreiber RN, Ashly M Unavailable Unavailruy Schreiber RN, Ashly M Unavailable Unavailabl e DeFinis, Harumi Y Unavailable Unavailable PATRICIA Fernandez, Danyell Garvin Unavailable Unavailable PATRICIA Schreiber, Ashly Garvin Unavailable Unavailruy White RN, Brook Easton Unavailable PATRICIA Schreiber, Ashly Garvin Unavailable Unavailruy Schreiber RN, Ashly M Unavailable Unavailruy Salgado RN, Nieves A Unavailable Unavailable Naomi GOMEZ, Nieves A Unavailable Unavailable PATRICIA Schreiber, Ashly Garvin Unavailable Unavailabl e PAPPATI COLLAZO Unavailable Unavailable PAPBERTINAS, PATI Unavailable Unavailable UNKNOWN, REFERR Unavailable Unavailable PATRICIA Schreiber, Ashly Garvin Unavailable Unavailruy Fernandez RN, Danyell M Unavailable Unavailable PATRICIA Schreiber, Ashly Garvin Unavailable Unavailruy e Dr. Michaela Mcfadden Primary Care Provider [phone] Dr. Michaela Mcfadden Referring Provider [phone] Leelee Fernandez Attending Provider Unavailable Dr. Michaela Mcfadden Primary Care Provider Dr. Michaela Mcfadden Referring Provider Merari MUNGUIA, PA Brook Garvin Attending Provider Leelee Fernandez Attending Provider Unavailable Michaela Mcfadden Primary Care Provider Unavailabl e Dr. Karissa Madrid Primary Care Provider Zia, Dr. Bo Attending Provider [phone] SESOCO DERRICK BUILDER-HARDWARE TECHNICIAN, LOU Primary Care Physician FFEMATTHEW DERRICK BUILDER-HARDWARE TECHNICIAN, LOU Attending Adán headle MICHEAL DERRICK BUILDER-HARDWARE TECHNICIAN, LOU Primary Care Unavai lable TIANA DOYLE Attending Unavailable SEFFEMATTHEW DERRICK BUILDER-HARDWARE TECHNICIAN, LOU Primary Care Unavai lable Zia, Dr. Bo Referring Provider [phone] Dr. Karissa Madrid Primary Care Provider Zia, Dr. Bo Attending Provider [phone] Dr. Anupam Lizarraga Referring Provider [phone] Dr. Karissa Madrid Referring Provider [phone] Dr. Yoshi Swann Attending Provider [phone] Dr. Karissa Madrid Primary Care Provider Dr. Yury Ly Attending Provider [phone] Dr. Yoshi Swann Referring Provider [phone] Dr. Michaela Mcfadden Referring Provider Leelee Fernandez Attending Provider Unavailable Zia, Dr. Bo Attending Provider [phone] Dr. Karissa Madrid Primary Care Provider Dr. Karissa Madrid Referring Provider [phone] Dr. Karissa Madrid Primary Care Provider Dr. Anupam Lizarraga Attending Provider [phone] Dr. Anupam Lizarraga Referring Provider [phone] Dr. Karissa Madrid Primary Care Provider Dr. Anupam Lizarraga Attending Provider [phone] Dr. Anupam Lizarraga Referring Provider [phone] Dr. Karissa Madrid Primary Care Provider Dr. Anupam Lizarraga Attending Provider [phone] Dr. Anupam Lizarraga Referring Provider [phone] Dr. Karissa Madrid Referring Provider [phone] Care Physician, No Primary Primary Care Provider Unavailable Micheal BASEBALL SEWER HAND-C, Lynette Primary Care Provider [phone] Annamarie KRISHNAMURTHY, Dr. Pierce Attending Provider [phone] Dr. Stan D eLuna MD Referring Provider [phone] Abe PA, Zarina Referring Provider [phone] Fish PA, Zarina Attending Provider [phone] Fish PA, Zarina Other Provider Cecil BASEBALL SEWER HAND-C, Mame Referring Provider Dr. Michaela Mcfadden DO Family Provider Dr. Anupam Lizarraga MD Attending Provider [phone] Dr. Anupam Lizarraga MD Referring Provider [phone] Brook Hutchins Other Provider [phone] Micheal BASEBALL SEWER HAND-C, Lou Other Provider [phone] Ann-Marie BASEBALL SEWER HAND-C, Juanita Phillips Attending Provider [phone] Ann-Marie BASEBALL SEWER HAND-C, Juanita E Referring Provider [phone] Dr. Michaela Mcfadden DO Family Provider Dr. Anupam Lizarraga MD Attending Provider [phone] Dr. Anupam Lizarraga MD Referring Provider [phone] Brook Hutchins Other Provider [phone] Seffens BASEBALL SEWER HAND-C, Lou Other Provider [phone] Micheal BASEBALL SEWER HAND-C, Lynette Primary Care Provider [phone] Abe PA, Zarina Attending Provider [phone] Fish PA, Zarina Other Provider Cecli BASEBALL SEWER HAND-C, Mame Referring Provider Micheal BASEBALL SEWER HAND-C, Lynette Referring Provider Brook Hutchins Attending Provider Micheal, Lynette Primary Care Unavailable Fish, Zarina Attending Unavailable Cecil BASEBALL SEWER HAND, Mame Referring Unavailable Fish, Zarina Attending Unavailable Micheal, Lynette Primary Care Unavailable Cecil BASEBALL SEWER HAND, Mame Referring Unavailable Micheal, Lynette Primary Care Unavailable Zia, Anupam Referring Unavailable Zia, Anupam Attending Unavailable Micheal, Lynette Primary Care Unavailable Cecil BASEBALL SEWER HAND, Mame Referring Unavailable Fish, Zarina Attending Unavailable Micheal, Lynette Primary Care Unavailable Fish, Zarina Attending Unavailable Cecil BASEBALL SEWER HAND, Mame Referring Unavailable Micheal, Lynette Primary Care Unavailable Elan Walls Attending Unavailable Zia, [place] Referring Unavailable Zia, Anupam Attending Unavailable Brook Hutchins Consulting Unavail able MercyKarissa cortes Primary Care Unavailable Seffens BASEBALL SEWER HAND, Lou Consulting Unavailable Micheal, Lynette Attending Unavailable Micheal, Lynette Referring Unavailable Mercy Karissa Primary Care Unavailable Micheal, Lynette Primary Care Unavailable Zia, Anupam Attending Unavailable Brook Hutchins Consulting Unavail able Zia, [place] Referring Unavailable Seffens BASEBALL SEWER HAND, Lou Consulting Unavailable Micheal, Lynette Primary Care Unavailable Fish, Zarina Attending Unavailable Cecil BASEBALL SEWER HAND, Mame Referring Unavailable Micheal, Lynette Primary Care Unavailable Zia, Anupam Referring Unavailable Zia, Anupam Attending Unavailable Brook Hutchins Consulting Unavail able Seffens BASEBALL SEWER HAND, Lou Consulting Unavailable Micheal, Lynette Primary Care Unavailable Fish, Zarina Attending Unavailable Cecil BASEBALL SEWER HAND, Mame Referring Unavailable Micheal, Lynette Primary Care Unavailable Cecil BASEBALL SEWER HAND, Mame Referring Unavailable Cecil BASEBALL SEWER HAND, Mame Attending Unavailable Micheal, Lynette Primary Care Unavailable Brook Hutchins Attending Unavail able Brook Hutchins Referring Unavail able Micheal, Lynette Primary Care Unavailable Brook Hutchins Attending Unavail able Brook Hutchins Referring Unavail able Micheal, Lynette Primary Care Unavailable Fish, Zarina Attending Unavailable Cecil BASEBALL SEWER HAND, Mame Referring Unavailable Micheal, Lynette Primary Care Unavailable Fish, Zarina Attending Unavailable Fish, Zarina Consulting Unavailable Cecil BASEBALL SEWER HAND, Mame [facility]available Fish, Zarina Attending Unavailable Fish, Zarina Consulting Unavailable Cecil BASEBALL SEWER HAND, Mame Referring Un[facility] Unavailable Fish, Zarina Attending Unavailable Fish, Zarina Consulting Unavailable Cecil BASEBALL SEWER HAND, Mame Referring Unavailable Micheal, Rarden Primary Care Unavailable Hewett, Stan Attending Unavailable Hewett, Stan Referring Unavailable Micheal, Rarden Primary Care Unavailable Merari MUNGUIA, Brook Garvin Attending Unavail able Micheal, Lynette Referring Unavailable [facility] Unavailable Zia, Anupam Attending Unavailable [facility] Unavailable Zia, Anupam Attending Unavailable Zia, Anupam Referring Unavailable [facility] Unavailable Fish, Zarina Consulting Unavailable Cecil BASEBALL SEWER HAND, Mame Referring Unavailable Fish, Zarina Attending Unavailable [facility] Unavailable Fish, Zarina Consulting Unavailable Fish, Zarina Attending Unavailable Cecil BASEBALL SEWER HAND, Mame Referring Unavailable Fish, Zarina Attending Unavailable Fish, Zarina Consulting Unavailable [facility] Unavailable Cecil BASEBALL SEWER HAND, Mame Referring Unavailable Fish, Zarina Referring Unavailable [facility] Unavailable Annamarie, Stan Attending Unavailable Fish, Zarina Referring Unavailable Fish, Zarina Consulting Unavailable [facility] Unavailable Ann-Marie BASEBALL SEWER HAND, Juanita E Attending Unavailabl e [facility] Unavailable Fish, Zarina Attending Unavailable Fish, Zarina Consulting Unavailable Cecil BASEBALL SEWER HAND, Mame Referring Unavailable [facility] Unavailable Fish, Zarina Attending Unavailable Fish, Zarina Consulting Unavailable Cecil BASEBALL SEWER HAND, Mame Referring [facility]available [facility] Unavailable Fish, Zarina Consulting Unavailable Ann-Marie BASEBALL SEWER HAND, Juanita E Attending Unavailabl e Ann-Marie BASEBALL SEWER HAND, Juanita E Referring [facility]availabl e [facility] Unavailable Fish, Zarina Attending Unavailable Fish, Zarina Consulting Unavailable Cecil BASEBALL SEWER HAND, Mame Referring Unavailable Fish, Zarina Attending Unavailable Fish, Zarina Consulting Unavailable Micheal, Lynette Primary Care Unavailable Cecil BASEBALL SEWER HAND, Mame Referring Unavailable Fish, Zarina Attending Unavailable Micheal, Rarden Primary Care Unavailable Micheal, Lynette Referring Unavailable Micheal, Rarden Primary Care Unavailable Fish, Zarina Attending Unavailable Fish, Zarina Consulting Unavailable Cecil BASEBALL SEWER HAND, Mame Referring Unavailable Micheal, Lynette Primary Care Unavailable Fish, Zarina Attending Unavailable Fish, Zarina Consulting Unavailable Cecil BASEBALL SEWER HAND, Mame Referring Unavailable Micheal, Lynette Primary Care Unavailable Fish, Zarina Attending Unavailable Fish, Zarina Consulting Unavailable Cecil BASEBALL SEWER HAND, Mame Referring Unavailable Micheal, Lynette Primary Care Unavailable Fish, Zarina Attending Unavailable Cecil BASEBALL SEWER HAND, Mame Referring Unavailable Micheal, Lynette Primary Care Unavailable Zia, Anupam Attending Unavailable Zia, [place] Referring Unavailable Gage PA, Brook M Consulting Unavail able Seffens BASEBALL SEWER HAND, Lou Consulting Unavailable Micheal, Lynette Primary Care Unavailable Zia, [place] Referring Unavailable Zia, [place] Attending Unavailable Gage PA, Brook M Consulting Unavail able Seffens BASEBALL SEWER HAND, Lou Consulting Unavailable Zia, Anupam Referring Unavailable Mercy Karissa Primary Care Unavailable Micheal, Rarden Primary Care Unavailable Zia, [place] Attending Unavailable Zia, Anupam Referring Unavailable Merari PA, Brook M Consulting Unavail able Seffens BASEBALL SEWER HAND, Lou Consulting Unavailable Micheal, Lynette Primary Care Unavailable Zia, [place] Referring Unavailable Zia, Anupam Attending Unavailable Gage PA, Brook M Consulting Unavail able Seffens BASEBALL SEWER HAND, Lou Consulting Unavailable Micheal, Lynette Primary Care Unavailable Zia, [place] Referring Unavailable Zia, Anupam Attending Unavailable Gage PA, Brook M Consulting Unavail able Seffens BASEBALL SEWER HAND, Lou Consulting Unavailable Micheal, Lynette Primary Care Unavailable Zia, [place] Attending Unavailable Zia, Anupam Referring Unavailable Micheal, Lynette Primary Care Unavailable Fish, Zarina Attending Unavailable Cecil BASEBALL SEWER HAND, Mame Referring Unavailable Zia, Anupam Referring Unavailable Zia, Anupam Attending Unavailable Mercy Karissa Primary Care Unavailable Merari PA, Brook M Consulting Unavail able Seffens BASEBALL SEWER HAND, Luo Consulting Unavailable Micheal, Lynette Primary Care Unavailable Micheal, Lynette Referring Unavailable Cecil BASEBALL SEWER HAND, Mame Attending Unavailable Micheal, Lynette Primary Care Unavailable Fish, Zarina Consulting Unavailable Fish, Zarina Attending Unavailable Cecil BASEBALL SEWER HAND, Mame Referring Unavailable Micheal, Lynette Primary Care Unavailable Fish, Zarina Attending Unavailable Fish, Zarina Consulting Unavailable Cecil BASEBALL SEWER HAND, Mame Referring Unavailable Micheal, Lynette Primary Care Unavailable Fish, Zarina Consulting Unavailable Fish, Zarina Attending Unavailable Cecil BASEBALL SEWER HAND, Mame Referring Unavailable Micheal, Lynette Primary Care Unavailable James PHILLIP, Stephanie Attending Unavailable Mihceal, Lynette Primary Care Unavailable Zia, [place] Attending Unavailable Micheal, Lynette Primary Care Unavailable Fish, Zarina Attending Unavailable Mercy, Karissa Referring Unavailable Fish, Zarina Consulting Unavailable Micheal, Lynette Primary Care Unavailable Fish, Zarina Attending Unavailable Cecil BASEBALL SEWER HAND, Mame Referring Unavailable Micheal, Lynette Primary Care Unavailable Brook Hutchins Attending Unavail able Mercy, Karissa Referring Unavailable Imcheal, Lynette Primary Care Unavailable Zia, Anupam Referring Unavailable Zia, [place] Attending Unavailable Micheal, Lynette Primary Care Unavailable Zia, [place] Attending Unavailable Micheal, Lynette Primary Care Unavailable Brook Hutchins Consulting Unavail able Zia, [place] Attending Unavailable Zia, [place] Referring Unavailable Lou Burton NP Consulting Unavailable Micheal, Lynette Primary Care Unavailable Zia, [place] Attending Unavailable Brook Hutchins Consulting Unavail able Zia, Anupam Referring Unavailable Micheal BASEBALL SEWER HAND, Lou Consulting Unavailable Allergies Allergy Classification Reported Allergen(s) Allergy Type Date of Onset Reaction(s) Facility (20 sources) metoprolol drug allergy 7 Pt states the tartrate causes GI upset, she can take the Succinate. [facility] Work Phone: (20 sources) NKDA; 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: [NKDA] allergy to substance 4 [facility] Work Phone: (4 sources) Amoxicillin Drug Allergy 4 Rash [facility] Comment on above: Rash on her face (4 sources) Clavulanate Drug Allergy 4 Rash [facility] Comment on above: Rash on her face (1 source) Amoxicillin Drug Allergy 5 [facility] Repository (1 source) Clavulanate Drug Allergy 5 [facility] Medications Current Medications Medication Drug Class(es) Dates Sig (Normalized) Sig (Original) Biotin (2 sources) Start: 05-18-2022 biotin See Instructions, takes 1 capsule daily, pt is unsure of OTC dose, 0 Refill(s) Start Date: 05/18/22 Status: Ordered Calcium (2 sources) Phosphate Binder, Calcium Start: 05-18-2022 calcium (as carbonate) 500 mg oral tablet 0 Refill(s) Start Date: 05/18/22 Status: Ordered calcium citrate 950 mg / cholecalciferol 250 unt oral tablet (20 sources) Vitamin D Start: 01-23-2020 Calcium Citrate-Vitamin D3 200 mg calcium -250 unit tablet Active 1 {tbl} PO DAILY January 23, 2020 12:00am Start: 01-23-2020 take 1 tablet by bruce th once daily Calcium Citrate-Vitamin D3 Active 1 TABLET PO DAILY January 23, 2020 12:00am Cod Liver Oil oral capsule (2 sources) Start: 05-18-2022 take 1 capsule by mouth once daily Cod Liver Oil oral capsule Dose = 1 cap(s), Oral, Daily, 0 Refill(s) Start Date: 05/18/22 Status: Ordered doxycycline hyclate 100 mg oral capsule (6 sources) Tetracycline- class Drug Start: 08-31-2024 take 1 capsule by mouth twice daily Doxycycline Hyclate 100 mg capsule Active 100 mg PO TWICE A DAY 14 August 31, 2024 1:27pm Start: 08-10-2024 End: 08-24-2024 take 1 capsule by mouth twice daily Doxycycline Hyclate 100 mg capsule Discontinued 100 mg PO TWICE A DAY 28 August 10, 2024 12:00am August 23, 2024 12:00am August 24, 2024 12:12am furosemide 20 mg oral tablet (20 sources) Loop Diuretic Start: 08-31-2024 take 1 tablet by mouth once daily in the morning Furosemide 20 mg tablet Active 20 mg PO EVERY MORNING August 31, 2024 12:00am Start: 07-19-2018 End: 03-20-2024 take 1 tablet by mouth once daily Furosemide 20 mg tablet Discontinued 20 mg PO DAILY September 27, 2023 8:10am March 20, 2024 9:42am Start: 04-25-2014 End: 08-27-2016 take 1 tablet by mouth once daily as needed LASIX 20 MG TABS One tablet by mouth daily as needed FUROSEMIDE [id number] Brook Gage PA-C gentamicin 0.001 mg/mg topical ointment (4 sources) Start: 05-18-2024 Gentamicin 0.1 % ointment Active 1 NMA TOPICAL THREE TIMES A DAY May 18, 2024 1:00am magnesium oxide 250 mg oral tablet (20 sources) Start: 05-18-2022 take 1 mg by mouth once daily Magnesium 250 mg tablet mg = tab(s), Oral, qDay, 0 Refill(s) Start Date: 05/18/22 Status: Ordered Start: 01-23-2020 take 1 tablet by bruce th once daily Magnesium Oxide 200 mg magnesium tablet Active 200 mg PO DAILY January 23, 2020 12:00am 24 hr metoprolol succinate 50 mg extended release oral tablet (20 sources) beta-Adrenergic Dennis Start: 08-31-2024 take 1 tablet by mouth once daily Metoprolol Succinate 50 mg tablet extended release 24 hr Active 50 mg PO daily August 31, 2024 12:00am Start: 07-14-2017 End: 03-20-2024 Metoprolol Succinate 50 mg t ablet extended release 24 hr Discontinued 0 .ROUTE .COMPLEX June 03, 2023 11:26am March 20, 2024 9:42am TAKE 1 TABLET EVERY DAY Start: 09-02-2016 take 1 tablet by bruce th once daily METOPROLOL SUCCINATE ER 50 MG [id number] One tablet by mouth daily METOPROLOL SUCCINATE [id number] Brook Gage PA-C Start: 04-25-2014 METOPROLOL TAR TRATE 25 MG TABS one half tablet twice a day METOPROLOL TARTRATE [id number] Anupam Lizarraga MD Start: 04-25-2014 End: 08-27-2016 take 1 tablet by mouth once daily METOPROLOL SUCCINATE ER 50 MG [id number] One tablet by mouth daily METOPROLOL SUCCINATE [id number] Ferdinand Doran BASEBALL SEWER HAND Zinc (2 sources) Start: 05-18-2022 Zinc See Instr uctions, takes 1 capsule daily, pt is unsure of OTC dose, 0 Refill(s) Start Date: 05/18/22 Status: Ordered Completed/Discontinued Medications Medication Drug Class(es) Dates Sig (Normalized) Sig (Original) amoxicillin 875 mg oral tablet (4 sources) Penicillin-class Antibacterial Start: 03-20-2024 End: 03-30-2024 take 1 tablet by mouth every twelve hours Amoxicillin 875 mg tablet Discontinued 875 mg PO Q12H March 20, 2024 12:00am March 30, 2024 4:46pm amoxicillin 875 mg / clavulanate 125 mg oral tablet (4 sources) Penicillin-class Antibacterial Start: 05-11-2024 End: 05-16-2024 Amoxicillin-Pot Clavulanate 875-125 mg tablet Discontinued 1 {tbl} PO TWICE A DAY May 11, 2024 1:00am May 16, 2024 11:45am aspirin 81 mg oral tablet (20 sources) Platelet Aggregation Inhibitor, Nonsteroidal Anti-inflammatory Drug Start: 04-25-2014 End: 03-01-2015 take 1 tablet by mouth once daily ASPIRIN 81 MG TABS One tablet by mouth daily ASPIRIN [id number] Anupam Lizarraga MD Start: 04-25-2014 End: 03-01-2015 take 1 tablet by mouth once daily ASPIRIN 81 MG TABS One tablet by mouth daily ASPIRIN [id number] Anupam Lizarraga MD carvedilol 3.125 mg oral tablet (20 sources) alpha-Adrenergic Dennis, beta-Adrenergic Dennis Start: 04-25-2014 take 1 tablet by mouth twice daily CARVEDILOL 3.125 MG TABS One tablet by mouth twice daily CARVEDILOL [id number] Brook Gage PA-C cefuroxime 500 mg oral tablet (20 sources) Cephalosporin Antibacterial Start: 08-10-2024 End: 08-31-2024 take 1 tablet by mouth twice daily Cefuroxime Axetil 500 mg tablet Discontinued 500 mg PO TWICE A DAY August 24, 2024 12:21pm September 06, 2024 12:00am August 31, 2024 1:27pm Start: 06-23-2024 End: 07-20-2024 take 1 tablet by mouth twice daily Cefuroxime Axetil 500 mg tablet Discontinued 500 mg PO TWICE A DAY July 06, 2024 2:52pm July 19, 2024 1:00am July 20, 2024 1:09am Start: 05-18-2024 End: 06-01-2024 take 1 tablet by mouth twice daily Cefuroxime Axetil 500 mg tablet Discontinued 500 mg PO TWICE A DAY May 18, 2024 1:00am May 31, 2024 1:00am June 01, 2024 1:10am ciprofloxacin 500 mg oral tablet (8 sources) Quinolone Antimicrobial Start: 03-30-2024 End: 05-11-2024 take 1 tablet by mouth twice daily Ciprofloxacin Hcl (Cipro) 500 mg tablet Discontinued 500 mg PO TWICE A DAY April 06, 2024 3:17pm May 11, 2024 3:35pm ergocalciferol 29597 unt oral tablet (20 sources) Provitamin D2 Compound Start: 04-25-2014 End: 03-01-2015 take 1 tablet by mouth once daily VITAMIN D (ERGOCALCIFEROL) 41600 UNIT CAPS One tablet by mouth daily ERGOCALCIFEROL [id number] Anupam Lizarraga MD Start: 04-25-2014 End: 03-01-2015 take 1 tablet by mouth once daily VITAMIN D (ERGOCALCIFEROL) 18137 UNIT CAPS One tablet by mouth daily ERGOCALCIFEROL [id number] Anupam Lizarraga MD nitrofurantoin, macrocrystals 25 mg / nitrofurantoin, monohydrate 75 mg oral capsule (6 sources) Nitrofuran Antibacterial Start: 08-25-2023 End: 08-30-2023 take 1 capsule by mouth every twelve hours at mealtime Nitrofurantoin Monohyd/M-Cryst (Macrobid) 100 mg capsule Discontinued 100 mg PO Q12H 10 August 25, 2023 12:00am August 29, 2023 12:00am August 30, 2023 12:06am must administer with a meal/food ramipril 2.5 mg oral capsule (20 sources) Angiotensin Converting Enzyme Inhibitor Start: 04-10-2018 End: 08-31-2024 take 1 capsule by mouth once daily Ramipril 2.5 mg capsule Discontinued 2.5 mg PO DAILY August 23, 2023 11:24am August 31, 2024 1:58pm Start: 01-31-2016 End: 04-10-2018 take 2 capsules by mouth once daily Ramipril 1.25 mg capsule Discontinued 2.5 mg PO DAILY November 12, 2017 4:41pm April 10, 2018 10:12am Start: 01-31-2016 End: 04-10-2018 take 2.5 mg by mouth once daily Ramipril Discontinued 2.5 MG PO DAILY November 12, 2017 4:41pm April 10, 2018 10:12am Start: 04-19-2014 take 1 tablet by bruce th once daily RAMIPRIL 2.5 MG CAPS One tablet by mouth daily RAMIPRIL [id number] Ferdinand Doran BASEBALL SEWER HAND warfarin sodium 5 mg oral tablet (20 sources) Vitamin K Antagonist Start: 10-19-2022 End: 09-14-2024 Warfarin 5 mg tablet Discontinued 5 mg PO DAILY August 23, 2023 11:21am August 31, 2024 1:58pm Take 5mg daily and with a 2mg on Kgg-[id number]-[id number]-Wednesday to equal 7mg; or use as directed Please contact the information source for Protocol details. Start: 05-18-2022 warfarin See I nstructions, 7mg daily, except 5mg on Tuesdays., 0 Refill(s) Start Date: 05/18/22 Status: Ordered Start: 11-12-2017 End: 10-19-2022 Warfarin 5 mg tablet Discont inued 5 mg PO .COMPLEX 100 October 22, 2021 5:20pm October 19, 2022 11:05am 5 mg PO 2 tablets on Wednesday to = 10 mg; 1 tablet with a 2mg tablet = 7 mg x6 days of the week Please contact the information source for Protocol details. Start: 05-26-2016 End: 11-12-2017 take 1 tablet by mouth every week Warfarin 5 mg tablet Discontinued 5 mg PO .COMPLEX September 16, 2017 3:53pm November 12, 2017 4:44pm 5 mg PO 2 tablets on Wednesday to = 10 mg; 1 tablet with a 2mg tablet all other days of the week to = 7 mg all other days of the week; blood thinner Please contact the information source for Protocol details. Start: 05-26-2016 End: 09-16-2017 Warfarin 5 MG tablet Discont inued 7 [facility] May 26, 2016 1:00am September 16, 2017 3:55pm Please contact the information source for Protocol details. Start: 05-26-2016 End: 09-16-2017 Warfarin Discontinued 7 MG P O [facility] May 26, 2016 1:00am September 16, 2017 3:55pm Start: 11-26-2014 End: 08-31-2024 Warfarin 2 mg tablet Discont inued 2 mg PO .COMPLEX 90 November 04, 2022 4:22pm August 31, 2024 1:58pm 2 mg PO take with a 5mg tablet every day= 7mg except on Wednesday and Wednesday take 5mg tab; or as directed Please contact the information source for Protocol details. Start: 11-26-2014 End: 09-16-2017 Warfarin 5 MG tablet Discont inued 5 mg PO TU May 26, 2016 1:00am September 16, 2017 3:53pm Please contact the information source for Protocol details. Problems Active Problems Problem Classification Problem Date Documented Da te Episodic/Chronic Abdominal pain (20 sources) Abdominal pain; 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: [Unspecified abdominal pain] 09-04-2022 Episodic Biliary tract disease (20 sources) Acute cholecystitis; 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: [Acute cholecystitis due to biliary calculus] Onset: 09-09-2016 12-28-2018 Episodic Cardiac dysrhythmias (20 sources) Permanent atrial fibrillation ; 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: [Atrial fibrillation] Onset: 04-19-2014 09-04-2015 Chronic Chronic ulcer of skin (20 sources) Ankle ulcer; 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: [Non-pressure chronic ulcer of right ankle with unspecified severity] Onset: 07-07-2024 06-01-2024 Chronic Comment on above: 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 an Congestive heart failure; nonhypertensive (20 sources) Chronic systolic (congestive) heart failure; 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: [Chronic systolic heart failure] Onset: 08-27-2016 08-27-2016 Chronic Deficiency and other anemia (4 sources) Anemia; 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: [Anemia, unspecified] 02-23-2024 Episodic Heart valve disorders (20 sources) Heart murmur; 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: [Cardiac murmur, unspecified] Episodic Malaise and fatigue (20 sources) Fatigue; 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: [Other fatigue] 01-23-2020 Episodic Other aftercare (20 sources) Long-term current use of anticoagulant; 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: [penitentiary (current) use of anticoagulants] 05-18-2022 Episodic Other aftercare (2 sources) penitentiary (current) use of anticoagulants; 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: [penitentiary (current) use of anticoagulants] Onset: 06-13-2024 Episodic Other circulatory disease (4 sources) Carotid bruit; 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: [Other specified symptoms and signs involving the circulatory and respiratory systems] 01-26-2024 Episodic Other circulatory disease (4 sources) H/O: atrial fibrillation; 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: [Personal history of other diseases of the circulatory system] 01-20-2024 Episodic Other connective tissue disease (4 sources) Lipodermatosclerosis ; 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: [Panniculitis, unspecified] 01-26-2024 Episodic Other diseases of veins and lymphatics (20 sources) Venous insufficiency of leg; 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: [Venous insufficiency (chronic) (peripheral)] 01-26-2024 Episodic Other diseases of veins and lymphatics (2 sources) Venous insufficiency (chronic) (peripheral); 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: [Venous insufficiency (chronic) (peripheral)] Onset: 10-26-2024 Episodic Other hematologic conditions (1 source) Protein level - finding; 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: [Other specified abnormalities of plasma proteins] Episodic Other hematologic conditions (20 sources) Raised cardiac enzyme or marker; 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: [Other specified abnormalities of plasma proteins] 12-28-2018 Episodic Other lower respiratory disease (20 sources) Dyspnea on exertion; 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: [Dyspnea, unspecified] 01-23-2020 Episodic Alpa-; endo-; and myocarditis; cardiomyopathy (except that caused by tuberculosis or sexually transmitted disease) (20 sources) Cardiomyopathy; 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: [Dilated cardiomyopathy] Onset: 04-19-2014 02-28-2016 Chronic Residual codes; unclassified (20 sources) FH: premature coronary heart disease; 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: [Family history of ischemic heart disease and other diseases of the circulatory system] 12-28-2018 Episodic Comment on above: Male < 55 Skin and subcutaneous tissue infections (10 sources) Cellulitis of lower leg; 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: [Cellulitis of right lower limb] Onset: 10-26-2024 03-20-2024 Episodic Unclassified (12 sources) Long-term drug therapy; 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: [Encounter for therapeutic drug level monitoring] Onset: 09-04-2015 09-04-2015 Past or Other Problems Problem Classification Problem Date Documented Da te Episodic/Chronic Deficiency and other anemia (1 source) Anemia, unspecified; 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: [Anemia, unspecified] Onset: 02-23-2024 Episodic Nonspecific chest pain (20 sources) Precordial pain; 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: [Chest pain] Onset: 04-19-2014 Resolved: 02-28-2015 04-19-2014 Episodic Open wounds of extremities (1 source) Unspecified open wound, right lower leg, initial encounter; 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: [Unspecified open wound, right lower leg, initial encounter] Onset: 04-08-2024 Episodic Other aftercare (20 sources) Encounter for therapeutic drug level monitoring; 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: [Encounter for therapeutic drug level monitoring] Onset: 09-04-2015 02-28-2016 Episodic Other circulatory disease (1 source) Other specified symptoms and signs involving the circulatory and respiratory systems; 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: [Other specified symptoms and signs involving the circulatory and respiratory systems] Onset: 01-26-2024 Episodic Other connective tissue disease (1 source) Pain in right leg; 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: [Pain in right leg] Onset: 06-05-2024 Episodic Other connective tissue disease (1 source) Pain in leg, unspecified; 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: [Pain in leg, unspecified] Onset: 01-26-2024 Episodic Other connective tissue disease (1 source) Panniculitis, unspecified; 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: [Panniculitis, unspecified] Onset: 01-26-2024 Episodic Other hematologic conditions (6 sources) High troponin I level; 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: [Other specified abnormal findings of blood chemistry] Onset: 08-27-2016 08-27-2016 Episodic Other lower respiratory disease (20 sources) Dyspnea; 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: [Shortness of breath] Onset: 04-19-2014 Resolved: 02-28-2015 02-28-2015 Episodic Other lower respiratory disease (1 source) Other forms of dyspnea; 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: [Other forms of dyspnea] Onset: 03-30-2024 Episodic Other nutritional; endocrine; and metabolic disorders (20 sources) Body mass index (BMI) 26.0-26.9, adult; 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: [Body mass index (BMI) 25.0-25.9, adult] Onset: 08-22-2014 Resolved: 09-02-2016 02-28-2015 Episodic Residual codes; unclassified (20 sources) FH: Hypertension; 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: [High troponin I level] Onset: 11-26-2014 04-19-2014 Episodic Residual codes; unclassified (3 sources) Family history of ischemic heart disease and other diseases of the circulatory system; 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: [Family history of ischemic heart disease and other diseases of the circulatory system] 04-19-2014 Episodic Residual codes; unclassified (3 sources) Family history of sudden ; 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: [Family history of other specified conditions] 04-19-2014 Episodic Spondylosis; intervertebral disc disorders; other back problems (1 source) Dorsalgia, unspecified; 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: [Dorsalgia, unspecified] Onset: 02-02-2024 Episodic Results Test Name Value Interpretation Reference Range Facility International normalized rat io (INR) calculationOrdered By: Anupam Lizarraga on 10-05-2024 INR Coag (Bld) [Relative time] 2.2 {INR} [facility] Prothrombin Time w/INRon INR Coag (PPP) [Relative time] 2.2 {INR} Normal [facility] Comment on above: Performed By: #### L 300.3900 #### [facility] [place], [address] PT Coag (PPP) [Time] 24.9 s High 11.7-14.[address] [facility] Comment on above: Performed By: #### L 300.3900 #### [facility] [address] [place], [place], [id number] Prothrombin timeOrdered By: Anupam Lizarraga on 10-05-2024 PT Coag (PPP) [Time] 24.9 s High 11.7-14.[address] [facility] International normalized rat io (INR) calculationOrdered By: [place] Zia on 09-14-2024 INR Coag (Bld) [Relative time] 2.3 {INR} [facility] Prothrombin Time w/INRon INR Coag (PPP) [Relative time] 2.3 {INR} Normal [facility] Comment on above: Performed By: #### L 300.3900 #### [facility] [address] [place], [address] PT Coag (PPP) [Time] 25.4 s High 11.7-14.[address] [facility] Comment on above: Performed By: #### L 300.3900 #### [facility] [address] [place], [address] Prothrombin timeOrdered By: Anupam Lizarraga on 09-14-2024 PT Coag (PPP) [Time] 25.4 s High 11.7-14.[address] [facility] Cardiology Visit Reporton Cardiology Visit Report [facility] [address] [place], [place] [address] OFFICE VISIT Date of Service: 08/30/24 MR#: [id number] Acct: [id number] Name: JC GROSS Rep #: [id number] : 1945 Provider: EZRA Paige Age/Sex: 79/F Location: [facility] Status: Signed HPI HPI History of Present Illness Details: JC GROSS, is a 79 F who presents to the office today for a cardiovascular follow-up. She has a history of nonischemic cardiomyopathy, second-degree AV block with pacemaker placement and a history of atrial fibrillation.Heart catheterization in 2016 demonstrated normal coronary arteries with a reduced ejection fraction. She underwent an echocardiogram as well as a myocardial perfusion scan which were both normal. From a cardiac standpoint, patient is doing well. She does not have any chest discomfort/heaviness/tigh tness. She does not have any worsening symptoms of shortness of breath. She does not have any orthopnea. She denies PND. She does not have any symptoms of congestive heart failure. She does not have any palpitations that she is aware of. She does not have any lightheadedness or dizziness. She does not have any near-syncope or syncope. She does not have any lower extremity edema. She does not have any symptoms of claudication. She is going to the [facility] for her right leg. Intake Vital Signs 02/23/24 08:45 08/30/24 07:35 Height 5 ft 2 in 5 ft 4 in Weight: 140 lb BMI 24.0 BP 110/60 Blood Pressure Location Lt brachial Position Sitting Respiration 18 Pulse 66 Pulse Source Monitor Pulse Oximetry (%) 98 Intake Visit Reasons: 6 M FU/ Sees Danyell @ 10:30 Exhibits Manager Required: No Is patient in pain?: No Allergies amoxicillin (From Augmentin) Allergy (Verified 08/30/24 10:06) Rash clavulanic acid (From Augmentin) Allergy (Verified 08/30/24 10:06) Rash Medications ???Medication ???Instructions ???Recorded ???Confirmed ???Type calcium 200 mg (as 1 tab PO DAILY 01/23/20 03/20/24 H istory citrate)-vitamin D3 6.25 mcg (250 unit) tablet magnesium oxide 200 mg PO DAILY 01/23/20 03/20/24 History warfarin 2 mg tablet 2 mg PO .COMPLEX #90 tabs 11/04/22 03/20/24 Rx ramipril 2.5 mg capsule 2.5 mg PO DAILY #90 caps 08/23/23 08/30/24 Rx warfarin 5 mg tablet 5 mg PO DAILY #90 TABLETS 08/23/23 03/20/24 Rx gentamicin 0.1 % topical ointment 1 applic topical TID #30 grams Rx cefuroxime axetil 500 mg tablet 500 mg PO BID 14 days #28 tabs 08/30/24 Rx Ejection fraction %: 53 Have you fallen in the past year?: No Nurse's Note: patient has no medication list, does not what medications she is taking [facility] Medical History Mobitz type 2 second degree atrioventricular block Sick sinus syndrome due to SA node dysfunction Chronic systolic (congestive) heart failure Paroxysmal atrial fibrillation Sinoatrial node dysfunction FH: sudden cardiac (SCD) Nonischemic cardiomyopathy Elevated troponin Acute calculous cholecystitis Surgical History History of left heart catheterization (05/27/16) Presence of permanent cardiac pacemaker (2008) Family History Brother Sudden cardiac Brother Myocardial [...] home: Yes ROS Const Const: Negative for fatigue, weakness, headache(s) or frequent falls ENT ENT: Negative for headache(s), dizziness or Nosebleed/epistaxis Cardio Chest Pain: No Palpitations: No Edema: None Muscle aches with walking: None Resp Respiratory: Negative for SOB with activity, SOB at rest or SOB orthopnea SOB lying down GI GI: Negative nausea, vomiting, heartburn, bright, red blood in stools or black,tarry stools : Negative for hematuria Neuro Neuro: Negative for dizziness, lightheadedness, near syncope, syncope, frequent falls, headache(s) or weakness Endo Endo: Negative for fatigue Cardiology Exam Const Appearance: cooperative, comfortable, no acute distress, well developed and frail appearing Orientation: alert, awake and oriented x3 Head Head: normal to inspection Ears: hearing grossly normal bilaterally Nose: external nose normal Face and Sinus: face symmetric Mouth: oral mucosae normal, lip (more content not included)... Normal [facility] Pacemaker Checkon 08-30-2024 Pacemaker Check [facility] [address] [place] [address]. [address] [place] [address] Pacemaker Check Date of Service: 08/30/24 1538 MR#: [id number] Acct: [id number] Name: JC GROSS Rep #: [id number] : 1945 From: Leelee Fernandez Age/Sex: 79/F Location: [facility] Status: Signed Billing Codes PM Device Codes: 30760 PM Dev Prog Eval, Dual Assessment and Plan Assessment and Plan (1) Presence of permanent cardiac pacemaker: Status: Chronic Comment: Implant 2008 @ [facility] (2) Sick sinus syndrome due to SA node dysfunction: Status: Chronic (3) Mobitz type 2 second degree atrioventricular block: Status: Chronic (4) Paroxysmal atrial fibrillation: Status: Chronic (5) Nonischemic cardiomyopathy: Status: Chronic 08/30/24 1538 Date Leelee Garcia Signature: Date (if applicable) CC: Normal [facility] Prothrombin Time w/INRon INR Coag (PPP) [Relative time] 1.8 {INR} [facility] Comment on above: Performed By: #### L 300.3900 #### [facility] [address] [place], [address] PT Coag (PPP) [Time] 21.4 s High 11.7-14.[address] [facility] Comment on above: Performed By: #### L 300.3900 #### [facility] [address] [place], [address] Culture, Anaerobic Any Sourc renita 08-21-2024 CUAN List Antibiotics Las t 48 Hours? Cefrouxin, Doxycycline List Antibiotics to be Started? None Studies have confirmed that Anaerobic Gram Positive Cocci are routinely SUSCEPTABLE to Penicillin and generally susceptible to Beta-lactams and Beta-lactamase inhibitors, Cephalosporins, Carbapenems and Metronidazole. They are showing increased RESISTANCE to Clindamycin Anaerobic cocci Normal [facility] Comment on above: Performed By: #### M 100.2000, M100.3000, M100.4001 ####[facility] [address] [place], [address] Wound Cultureon 08-21-2024 WC List Antibiotics Las t 48 Hours? Cefrouxin, Doxycycline List Antibiotics to be Started? None No growth aerobically. Normal [facility] Comment on above: Performed By: #### M 100.2000, M100.3000, M100.4001 ####[facility] [address] [place], [address] Gram Stainon 08-18-2024 GS List Antibiotics Las t 48 Hours? Cefrouxin, Doxycycline List Antibiotics to be Started? None Gram Stain Rare Gram positive cocci Rare White Blood Cells No Epithelial cells Normal [facility] Comment on above: Performed By: #### M 100.2000, M100.3000, M100.4001 ####[facility] [address] [place], [address] Anaerobic cultureOrdered By: Zarina Fish on 08-17-2024 Bacteria identified Anaer cx Nom (Unsp spec) Anaerobic cocci Abnormal [facility] Bacteria identified Anaer cx Nom (Unsp spec)Ordered By: Zarina Fish on 08-17-2024 Anaerobic Culture Anaerobic cocci Abnormal [facility] Gram stainOrdered By: Prisca Fish on 08-17-2024 Microscopic observation Gram stain Nom (Unsp spec) [facility] International normalized rat io (INR) calculationOrdered By: Anupam Lizarraga on 08-17-2024 INR Coag (Bld) [Relative time] 3.1 {INR} [facility] Prothrombin Time w/INRon INR Coag (PPP) [Relative time] 3.1 {INR} Normal [facility] Comment on above: Performed By: #### L 300.3900 #### [facility] [address] [place], [address] PT Coag (PPP) [Time] 32.7 s High 11.7-14.[address] [facility] Comment on above: Performed By: #### L 300.3900 #### [facility] [address] [place], [address] Prothrombin timeOrdered By: Anupam Zia on 08-17-2024 PT Coag (PPP) [Time] 32.7 s High 11.7-14.[address] [facility] Routine wound cultureOrdered By: Zarina Fish on 08-17-2024 Wound Culture No growth aerobically. [facility] International normalized rat io (INR) calculationOrdered By: Anupam Lizarraga on 07-27-2024 INR Coag (Bld) [Relative time] 2.2 {INR} [facility] Prothrombin Time w/INRon INR Coag (PPP) [Relative time] 2.2 {INR} Normal [facility] Comment on above: Performed By: #### L 300.3900 #### [facility] [address] [place], [address] PT Coag (PPP) [Time] 24.8 s High 11.7-14.[address] [facility] Comment on above: Performed By: #### L 300.3900 #### [facility] [address] [place], [address] Prothrombin timeOrdered By: Anupam Lizarraga on 07-27-2024 PT Coag (PPP) [Time] 24.8 s High 11.7-14.[address] [facility] Consultation - Infectious Dx on 07-12-2024 Consultation - Infectious Dx [facility] Medical Records Department [address] [place] [address] Consultation - Infectious Dx 07/12/24 1709 MR#: [id number] Acct: [id number] Name: JC GROSS Rep #: [id number] : 1945 78 From: Yury Canas MD PCP: NILSA Macias Status:REG RCR Location: Assessment Plan Assessment/Plan (1) Cellulitis of right lower leg: PLAN: Most recent wound cx with MSSE and strep. Reviewed labs and imaging. Overall much improved, recommend she complete current course of cefuroxime. Low suspicion for osteo. Return to clinic as needed, will send letter to EZRA Rincon. Please call with any questions. (2) Ulcer of right lower extremity: HPI Consult Data Date of Consult: 07/12/24 HPI Narrative Reason for Consultation: wound infection HPI Narrative: JC GROSS, is a 78 F with h/o afib, CHF, pacer in place, follows at wound center for R baird ulcer. Present since 04/2024, no known inciting event. Developed progressive redness, swelling, pain, drainage. Wound cx done, now on 3rd course of abx with cefuroxime. Reports symptoms much improved. Still with ulcer, but inflammation nearly resolved. No fever, no n/v/d. Full ROS performed and neg except as noted above. [facility] Medical History Mobitz type 2 second degree atrioventricular block Sick sinus syndrome due to SA node dysfunction Chronic systolic (congestive) heart failure Paroxysmal atrial fibrillation Sinoatrial node dysfunction FH: sudden cardiac (SCD) Nonischemic cardiomyopathy Elevated troponin Acute calculous cholecystitis Home Medications ???Medication ???Instructions ???Recorded ???Last Taken ???Type calcium 200 mg (as 1 tab PO DAILY 01/23/20 Unknown Hi story citrate)-vitamin D3 6.25 mcg (250 unit) tablet magnesium oxide 200 mg PO DAILY 01/23/20 Unknown H istory warfarin 2 mg tablet 2 mg PO .COMPLEX #90 tabs 11/04/22 Unknown Rx ramipril 2.5 mg capsule 2.5 mg PO DAILY #90 caps 08/23/23 Unknown Rx warfarin 5 mg tablet 5 mg PO DAILY #90 TABLETS 08/23/23 Unknown Rx gentamicin 0.1 % topical ointment 1 applic topical TID #30 grams Unknown Rx cefuroxime axetil 500 mg tablet 500 mg PO BID 14 days #28 tabs 11/22 Unknown Rx Allergy/AdvReac Type Severity Reaction Status Date / Time amoxicillin (From Augmentin) Allergy Rash Verified 05/18/24 13:42 clavulanic acid (From Allergy Rash Verified 05/18/24 13:42 Augmentin) Family History Brother Sudden cardiac Brother Myocardial infarction, Onset Age: 40 Heart disease Sister Hypertension Surgical History History of left heart catheterization (05/27/16) Presence of permanent cardiac pacemaker (2008) Social History Smoking Status: Never smoker alcohol intake: never substance use type: does not use caffeine: Yes Type: coffee what type of physical activity do you participate in: bicycling frequency: daily duration: < 15 minutes/day seatbelt use: always do you feel safe at home: Yes Physical Exam Const alert, oriented x3 and no apparent distress General Appearance: cooperative HEENT normocephalic and head/scalp atraumatic Eyes PERRL and EOMs intact bilaterally Neck supple and No nodes Resp normal air movement and clear to auscultation bilaterally Cardio regular rate and regular rhythm GI soft to palpation, non-tender and non-distended Extremity Extremity Narrative: mild BLE edema Skin Skin Narrative: R baird small ulcers, faint surrounding erythema. No warmth or swelling. Neuro CN's II-XII intact bilaterally Lab / Micro Data Attestation: I reviewed the patient's lab results. 07/12/24 1716 Cosigner Signature (if applicable): CC: BASEBALL SEWER HANDNixon Jacob; BASEBALL SEWER HAND-C Lynette Burton Signed Normal [facility] Prothrombin Time w/INRon INR Coag (PPP) [Relative time] 2.1 {INR} Normal [facility] Comment on above: Performed By: #### L 300.3900 #### [facility] [address] [place], [address] PT Coag (PPP) [Time] 24.0 s High 11.7-14.[address] [facility] Comment on above: Performed By: #### L 300.3900 #### [facility] [address] [place], [address] Prothrombin Time w/INRon INR Coag (PPP) [Relative time] 1.5 {INR} Normal [facility] Comment on above: Performed By: #### L 300.3900 #### [facility] [address] [place], [address] PT Coag (PPP) [Time] 18.4 s High 11.7-14.[address] [facility] Comment on above: Performed By: #### L 334.3322 #### [facility] [address] [place], [address] International normalized rat io (INR) calculationOrdered By: Anupam Lizarraga on 06-30-2024 INR Coag (Bld) [Relative time] 1.5 {INR} [facility] L3410.9999on 06-30-2024 [facility] Mis. COMMENT Normal . [facility] Comment on above: Order Comment: [id number] CULTURE Result Comment: Test Ordered: [id number] Anaerobic/Aerobic/Gram Stain Anaerobic Culture Note: [A ] CB Final report Reference Range: . Result 1 Note: [A ] CB Finegoldia magna Reference Range: . Moderate growth Aerobic Culture Note: [A ] CB Final report Reference Range: . Result 1 Comment [A ] CB Reference Range: . Staphylococcus haemolyticus Based on resistance to oxacillin this isolate would be resistant to all currently available beta-lactam antimicrobial agents, with the exception of the newer cephalosporins with anti-MRSA activity, such as Ceftaroline Light growth Antimicrobial Susceptibility Comment CB Reference Range: . S = Susceptible; I = Intermediate; R = Resistant P = Positive; N = Negative MICS are expressed in micrograms per mL Antibiotic RSLT#1 RSLT#2 RSLT#3 RSLT#4 Ciprofloxacin R Clindamycin R Erythromycin R Gentamicin R Levofloxacin R Linezolid S Moxifloxacin R Oxacillin R Penicillin R Rifampin S Tetracycline S Trimethoprim/Sulfa R Vancomycin S Gram Stain Result Note: Final report Reference Range: . Result 1 Comment CB Reference Range: . Few white blood cells. Result 2 Comment CB Reference Range: . Moderate number of gram positive cocci. Performed at: - [facility] [id number] Linoleum Layer Apprentice: Shoaib Ellis PhD, Phone: [phone] Performed By: #### L 8640.9993 ####[facility] [address] [place], [place], [id number] Prothrombin Time w/INRon INR Coag (PPP) [Relative time] 1.5 {INR} Normal [facility] Comment on above: Performed By: #### L 300.3900 #### [facility] [address] [place], [address] PT Coag (PPP) [Time] 18.1 s High 11.7-14.[address] [facility] Comment on above: Performed By: #### L 300.3900 #### [facility] [address] [place], [address] Prothrombin timeOrdered By: Anupam Lizarraga on 06-30-2024 PT Coag (PPP) [Time] 18.1 s High 11.7-14.[address] [facility] No Panel InformationOrdered By: Zarina Fish on 06-22-2024 Miscellaneous Test COMMENT . [facility] Comment on above: Test Ordered: [id number] Anaerobic/Aerobic/Gram StainAnaerobic Culture Note: [A ] CB Final report Reference Range: .Result 1 Note: [A ] CB Finegoldia magna Reference Range: .Moderate growthAerobic Culture Note: [A ] CB Final report Reference Range: .Result 1 Comment [A ] CB Reference Range: .Staphylococcus haemolyticusBased on resistance to oxacillin this isolate would beresistant to all currently available beta-lactamantimicrobial agents, with the exception of the newercephalosporins with anti-MRSA activity, such as CeftarolineLight growthAntimicrobial Susceptibility Comment CB Reference Range: . S = Susceptible; I = Intermediate; R = Resistant P = Positive; N = Negative MICS are expressed in micrograms per mL Antibiotic RSLT#1 RSLT#2 RSLT#3 RSLT#4Ciprofloxacin RClindamycin RErythromycin RGentamicin RLevofloxacin RLinezolid SMoxifloxacin ROxacillin RPenicillin RRifampin STetracycline STrimethoprim/Sulfa RVancomycin SGram Stain Result Note: CB Final report Reference Range: .Result 1 Comment CB Reference Range: .Few white blood cells.Result 2 Comment CB Reference Range: .Moderate number of gram positive cocci.Performed at: [address] [id number] Director: Shoaib Ellis PhD, Phone: [phone] Extremity Lower without Cont raon 06-08-2024 Extremity Lower without Contra [facility] Imaging Services [address] [place] [place] [address] Extremity Lower without Contra MR#: [id number] Acct: [id number] Name: JC GROSS Rep #: [id number] : 1945 F 78 From: Alejandro Hylton MD PCP: NILSA Macias Status: REG RCR Study: Extremity Lower without Contra Date of Exam: 0 06/08/24 Exam# [id number] Ordering Dr: Zarina Fish [id number] STUDY: CT RIGHT LOWER EXTREMITY REASON FOR EXAM: Female, 78 years old. RLE WOUND RADIATION DOSAGE (If Supplied By Facility): CTDIvol = ( 15.35 ) mGy, DLP = ( 752.89 ) mGycm TECHNIQUE: Thin section transaxial imaging of the right lower extremity was obtained, with sagittal and coronal reconstructed images. Individualized dose optimization techniques were used for this CT. COMPARISON: Right ankle radiographs dated 06/01/2024. FINDINGS: There is skin ulceration along the anterolateral aspect of the upper ankle, with adjacent cellulitis. There is no drainable fluid collection or abscess. There are benign soft tissue calcifications in the subcutaneous fat throughout the mid to distal calf. There are atherosclerotic calcifications. Normal visualized tibia and fibula. Normal talus, calcaneus, and tarsal bones. Normal visualized tibiotalar, subtalar, talonavicular, calcaneocuboid, tarsal and tarsometatarsal articulations. Normal metatarsi. Normal metatarsophalangeal joint of the great toe. Normal tibial and fibular sesamoid bones. Normal interphalangeal joint of the great toe. Normal phalanges of the great toe. Normal second through fifth metatarsophalangeal joints. Normal interphalangeal joints and phalanges of the lesser toes. There is no demonstrated acute fracture. There is mild subcutaneous soft tissue edema around the right ankle. CT/Extremity Lower without Contra IMPRESSION: Skin ulceration along the anterolateral aspect of the upper ankle, with adjacent cellulitis. No drainable fluid collection or abscess. Electronically Signed: Alejandro Hylton MD at 14:43 EST Reading Location ID and State: [facility] / [place] , Service support , CC: NILSA Burton; EZRA Rincon Cloud Services Architect: Signed Normal [facility] Prothrombin Time w/INRon INR Coag (PPP) [Relative time] 2.4 {INR} Normal [facility] Comment on above: Order Comment: Comme nts: STANDING ORDER Performed By: #### L 300.3900 #### [facility] Laboratory [address] [facility] [place], [address] PT Coag (PPP) [Time] 26.3 s High 11.7-14.[address] [facility] Comment on above: Order Comment: Comme nts: STANDING ORDER Performed By: #### L 300.3900 #### [facility] [address] [facility] [place], [address] Absolute neutrophil countOrd ered By: Zarina Fish on 06-01-2024 Neutrophils (Bld) [#/Vol] 3.2 10*3/uL 2.0-7.7 [facility] Ankle 2 Viewson 06-01-2024 Ankle 2 Views [facility] Imaging Services [address] [place] [address] Ankle 2 Views MR#: [id number] Acct: [id number] Name: JC GROSS Rep #: [id number] : 1945 F 78 From: Alejandro Hylton MD PCP: Lynette Micheal, [employer] Status: REG RCR Study: Ankle 2 Views Date of Exam: 06/01/24 Exam# [id number] Ordering Dr: Zarina Fish [id number] STUDY: X-RAY - RIGHT ANKLE REASON FOR EXAM: Female, 78 years old. R ankle wound TECHNIQUE: 2 views of the right ankle. COMPARISON: None. FINDINGS: Normal visualized distal tibia and fibula. Normal medial and lateral malleoli. Normal tibiotalar articulation and ankle mortise. Intact visualized talus and calcaneus. There are small plantar and posterior calcaneal spurs. The visualized subtalar, talonavicular, calcaneocuboid and tarsal articulations are normal. There is no demonstrated fracture. There is mild generalized soft tissue swelling around the ankle. There are benign soft tissue calcifications in the distal half of the calf. There are mild atherosclerotic calcifications. RAD/Ankle 2 Views IMPRESSION: Small plantar and posterior calcaneal spurs. Mild generalized soft tissue swelling around the ankle. Electronically Signed: Alejandro Hylton MD at 8:17 EST Reading Location ID and State: [address] [place] [address] , Service support , CC: BASEB[employer] SEWER HANDNixon Burton; EZRA Rincon Cloud Services Architect: Signed Normal [facility] Basic Metabolic Profile (BMP )on 06-01-2024 BUN/CRE 28.0 RATIO High 10-20 [facility] Comment on above: Performed By: #### L 300.4970 #### [facility] [address] [place], [address] CA,Total 9.8 mg/dL Normal 8.5-10.1 [facility] Comment on above: Performed By: #### L 300.3900 #### [facility] [address] [place], [address] Chloride [Moles/Vol] 107 mmol/L Normal 98-[address] [facility] Comment on above: Performed By: #### L 300.3900 #### [facility] [address] [place], [address] CO2 [Moles/Vol] 28.0 mmol/L Normal 21.0-32.0 [facility] Comment on above: Performed By: #### L 300.3900 #### [facility] [address] [place], [address] Creatinine [Mass/Vol] 0.96 mg/dL Normal 0.55-1.02 [facility] Comment on above: Result Comment: The validity of the calculated GFR GFRAA in patients over 70 years has not been determined. Clinical correlation is essential. Performed By: #### L 300.3900 #### [facility] [address] [place], [address] EST GFR - AA 72 mL/min Normal >60 [facility] Comment on above: Result Comment: Afri can Egyptian GFR Calc Performed By: #### L 300.3900 #### [facility] [address] [place], [address] GAP 5 Normal 5-15 [facility] Comment on above: Performed By: #### L 300.3900 #### [facility] [address] [place], [address] GFR/1.73 sq M.predicted among non-blacks MDRD (S/P/Bld) [Vol rate/Area] 60 mL/min/{1.73_m2} Normal >60 [facility] Comment on above: Result Comment: Non- GFR Calc Performed By: #### L 300.3900 #### [facility] [address] [place], [address] Glucose [Mass/Vol] 99 mg/dL Normal 74-106 [facility] Comment on above: Performed By: #### L 300.3900 #### [facility] [address] [place], [address] Potassium [Moles/Vol] 4.2 mmol/L Normal 3.5-5.1 [facility] Comment on above: Performed By: #### L 300.3900 #### [facility] [address] [place], [address] Sodium [Moles/Vol] 140 mmol/L Normal 136-145 [facility] Comment on above: Performed By: #### L 300.3900 #### [facility] [address] [place], [address] Urea nitrogen [Mass/Vol] 27 mg/dL High 7-18 [facility] Comment on above: Performed By: #### L 300.3900 #### [facility] [address] [place], [address] Basophil percentageOrdered B y: Zarina Fish on 06-01-2024 Basophils/100 WBC (Bld) 0.9 % 0-1 [facility] Blood urea nitrogen (BUN)/cr eatinine ratioOrdered By: Zarina Fish on 06-01-2024 Urea nitrogen/Creatinine [Mass ratio] 28.0 mg/mg High 10-20 [facility] CBC W/Diff, Automatedon Anisocytosis Ql (Bld) 2+ Normal [facility] Comment on above: Performed By: #### L 300.3900 #### [facility] [address] [place], [address] HYPOCHROMASIA RARE Normal [facility] Comment on above: Performed By: #### L 300.3900 #### [facility] [address] [place], [address] MACROCYTOSIS 2+ Normal [facility] Comment on above: Performed By: #### L 300.3900 #### [facility] [address] [place], [place], [address] PLT EST ADEQUATE Normal ADEQ [facility] Comment on above: Performed By: #### L 300.3900 #### [facility] [address] [place], [place], [address] RED CELL MORPH N CHROM Normal NORM C C [facility] Comment on above: Performed By: #### L 300.3900 #### [facility] [address] [place], [place], [address] Carbon dioxide measurementOr dered By: Zarina Fish on 06-01-2024 CO2 [Moles/Vol] 28.0 mmol/L 21.0-32.0 [facility] Chloride measurementOrdered By: Zarina Fish on 06-01-2024 Chloride [Moles/Vol] 107 mmol/L 98-[address] [facility] Eosinophil percentageOrdered By: Zarina Fish on 06-01-2024 Eosinophils/100 WBC (Bld) 5.0 % 0-5 [facility] Erythrocyte distribution wid th ratioOrdered By: Zarina Fish on 06-01-2024 Erythrocyte distribution width (RBC) [Ratio] 20.6 % High 11.6-14.6 [facility] Erythrocyte distribution wid th standard deviationOrdered By: Zarina Fish on 06-01-2024 Erythrocyte distribution width (RBC) [Entitic vol] 74.4 fL High 35.1-43.9 [facility] Estimated glomerular filtrat ion rate (GFR) AmericanOrdered By: Zarina Fish on 06-01-2024 Estimated GFR (MDRD) Amer 72 mL/min >60 [facility] Comment on above: GFR Calc Glomerular filtration rate ( GFR) estimationOrdered By: Zarina Fish on 06-01-2024 Estimated GFR (MDRD) Non-Af Amer 60 mL/min >60 [facility] Comment on above: Non- GFR Calc Glucose measurementOrdered B y: Zarina Fish on 06-01-2024 Glucose [Mass/Vol] 99 mg/dL 74-106 [facility] Hematocrit Auto (Bld) [Volum e fraction]Ordered By: Zarina Fish on 06-01-2024 Hematocrit (Bld) [Volume fraction] 32.1 % Low 37-47 [facility] Hemoglobin measurementOrdere d By: Zarina Fish on 06-01-2024 Hemoglobin (Bld) [Mass/Vol] 10.0 g/dL Low 12.0-15.0 [facility] Hypochromia Ql (Bld)Ordered By: Zarina Fish on 06-01-2024 Hypochromasia RARE [facility] Immature granulocytes/100 WB C Auto (Bld)Ordered By: Zarina Fish on 06-01-2024 Immature granulocytes/100 WBC (Bld) 0.300 % 0.0-0.9 [facility] Comment on above: IG% - Immature Granu locytes (promyelocytes, myelocytes and metamyelocytes) > 1% indicates that a LEFT SHIFT is Present. Laboratory - Hematology and Cell countsOrdered By: Zarina Fish on 06-01-2024 Anisocytosis Ql (Bld) 2+ [facility] Lymphocytes Auto (Unsp spec) [#/Vol]Ordered By: Zarina Fish on 06-01-2024 Lymphocytes (Bld) [#/Vol] 1.70 10*3/uL 0.83-4.51 [facility] Lymphocytes/100 WBC Auto (Un sp spec)Ordered By: Zarina Fish on 06-01-2024 Lymphocytes/100 WBC (Bld) 29.3 % 19-41 [facility] MCV (mean corpuscular volume ) determinationOrdered By: Zarina Fish on 06-01-2024 MCV (RBC) [Entitic vol] 98.5 fL 81-99 [facility] Macrocytes Ql (Bld)Ordered B y: Zarina Fish on 06-01-2024 Macrocytosis 2+ [facility] Mean corpuscular hemoglobin (MCH) determinationOrdered By: Zarina Fish on 06-01-2024 MCH (RBC) [Entitic mass] 30.7 pg 27.0-32.0 [facility] Mean corpuscular hemoglobin concentration (MCHC) determinationOrdered By: Zarina Fish on 06-01-2024 MCHC (RBC) [Mass/Vol] 31.2 g/dL Low 32-36 [facility] Mean platelet volume determi nationOrdered By: Zarina Fish on 06-01-2024 Platelet mean volume (Bld) [Entitic vol] 10.5 fL 6.2-12.0 [facility] Monocyte percentageOrdered B y: Zarina Fish on 06-01-2024 Monocytes/100 WBC (Bld) 9.6 % 0-10 [facility] Neutrophil percentageOrdered By: Zarina Fish on 06-01-2024 Neutrophils/100 WBC (Bld) 54.9 % 47-70 [facility] Nucleated red blood cell per centageOrdered By: Zarina Fish on 06-01-2024 Nucleated RBC/100 WBC (Bld) [Ratio] 0 % 0-5 [facility] Platelet countOrdered By: Georges Fish on 06-01-2024 Platelets (Bld) [#/Vol] 222 10*3/uL 150-450 [facility] Platelets LM Ql (Bld)Ordered By: Zarina Fish on 06-01-2024 Platelet Estimate ADEQUATE ADEQ [facility] Potassium measurementOrdered By: Zarina Fish on 06-01-2024 Potassium [Moles/Vol] 4.2 mmol/L 3.5-5.1 [facility] RBC Auto (Bld) [#/Vol]Ordere d By: Zarina Fish on 06-01-2024 RBC (Bld) [#/Vol] 3.26 10*6/uL Low 4.2-5.4 [facility] RBC morphology finding Nom ( Bld)Ordered By: Zarina Fish on 06-01-2024 Red Blood Cell Morphology N CHROM NORMAL NORM C&C [facility] Serum anion gap measurementO rdered By: Zarina Fish on 06-01-2024 Anion gap [Moles/Vol] 5 mmol/L 5-15 [facility] Serum or plasma calcium darlene urement (mass/volume)Ordered By: Zarina Fish on 06-01-2024 Calcium [Mass/Vol] 9.8 mg/dL 8.5-10.1 [facility] Serum or plasma creatinine m easurement (mass/volume)Ordered By: Zarina Fish on 06-01-2024 Creatinine [Mass/Vol] 0.96 mg/dL 0.55-1.02 [facility] Comment on above: The validity of the calculated GFR & GFRAA in patients over 70 years has not been determined. Clinical correlation is essential. Serum or plasma urea nitroge n measurement (mass/volume)Ordered By: Zarina Fish on 06-01-2024 Urea nitrogen [Mass/Vol] 27 mg/dL High 7-18 [facility] Serum or plasma uric acid me asurement (mass/volume)Ordered By: Zarina Fish on 06-01-2024 Urate [Mass/Vol] 3.8 mg/dL 2.6-6.0 [facility] Comment on above: The drugs N-Acetylcy steine and Metamizole may falsely depress this assay. Sodium levelOrdered By: Enrico Fish on 06-01-2024 Sodium [Moles/Vol] 140 mmol/L 136-145 [facility] Tibia Fibula 2 Viewson 06-01 Tibia Fibula 2 Views [facility] Imaging Services [address] [place], [place] [address] Tibia Fibula 2 Views MR#: [id number] Acct: [id number] Name: JC GROSS Rep #: [id number] : 1945 F 78 From: Alejandro Hylton MD PCP: NILSA Macias Status: REG RCR Study: Tibia Fibula 2 Views Date of Exam: 06/01/24 Exam# [id number] Ordering Dr: Zarina Fish [id number] STUDY: X-RAY - RIGHT TIBIA AND FIBULA REASON FOR EXAM: Female, 78 years old. R calf and ankle wounds TECHNIQUE: 2 views of the right tibia and fibula were obtained. COMPARISON: None. FINDINGS: Normal visualized tibia. Normal visualized fibula. There is no demonstrated acute fracture or discrete osseous lesion. There are benign soft tissue calcifications in the distal half of the calf. There are mild atherosclerotic calcifications. RAD/Tibia Fibula 2 Views IMPRESSION: Intact tibia and fibula. Electronically Signed: Alejandro Hylton MD at 8:15 EST , CC: NILSA Burton; EZRA Rincon Cloud Services Architect: Signed Normal [facility] Uric Acidon 06-01-2024 URIC 3.8 mg/dL Normal 2.6-6.0 [facility] Comment on above: Result Comment: The drugs N-Acetylcysteine and Metamizole may falsely depress this assay. Performed By: #### L 300.3900 #### [facility] [address] [place], [place], [id number] White blood cell (WBC) count Ordered By: Zarina Fish on 06-01-2024 WBC (Bld) [#/Vol] 5.8 10*3/uL 4.4-11.0 [facility] Wound Cultureon 05-25-2024 WC List Antibiotics Las t 48 Hours? none List Antibiotics to be Started? none Identification and sensitivity performed at [facility]. Dermabacter hominis Amount Growth Rare Dermabacter hominis: REACTION Erythromycin Islt LEENA >=2 Gentamicin Islt LEENA <=4 S rifAMPin Islt LEENA <=1 S Tetracycline Islt LEENA <=4 S Vancomycin Islt LEENA <=2 S Penicillin Islt LEENA 2 I Normal [facility] Comment on above: Performed By: #### L 300.3900 #### [facility] [address] [place], [place], [id number] International normalized rat io (INR) calculationOrdered By: Anupam Lizarraga on 05-18-2024 INR Coag (Bld) [Relative time] 1.7 {INR} [facility] Prothrombin Time w/INRon INR Coag (PPP) [Relative time] 1.7 {INR} Normal [facility] Comment on above: Performed By: #### L 300.3900 #### [facility] [address] [place], [place], [id number] PT Coag (PPP) [Time] 19.9 s High 11.7-14.[address] [facility] Comment on above: Performed By: #### L 300.3900 #### [facility] [address] [place], [place], [address] Prothrombin timeOrdered By: Anupam Lizarraga on 05-18-2024 PT Coag (PPP) [Time] 19.9 s High 11.7-14.[address] [facility] Culture, Anaerobic Any Sourc renita 05-16-2024 CUAN List Antibiotics Las t 48 Hours? none List Antibiotics to be Started? none #1 Studies have confirmed that Anaerobic Gram Positive Cocci are routinely SUSCEPTABLE to Penicillin and generally susceptible to Beta-lactams and Beta-lactamase inhibitors, Cephalosporins, Carbapenems and Metronidazole. They are showing increased RESISTANCE to Clindamycin Anaerobic cocci Normal [facility] Comment on above: Performed By: #### L 300.3900 #### [facility] [address] [place], [place], [address] Culture, Anaerobic Any Sourc renita 05-15-2024 CUAN List Antibiotics Las t 48 Hours? none List Antibiotics to be Started? none No anaerobic bacteria isolated. Normal [facility] Comment on above: Performed By: #### L 300.3900 #### [facility] [address] [place], [place], [id number] Wound Cultureon 05-15-2024 List Antibiotics Las t 48 Hours? none List Antibiotics to be Started? none #2 Clinical correlation necessary, Possible skin contamination. Streptococcus pseudoporcinus Amount Growth 1+ Staphylococcus epidermidis Staphylococcus epidermidis Streptococcus pseudoporcinus: REACTION Ampicillin Islt LEENA <=0.25 S Penicillin G Islt LEENA <=0.06 Cefotaxime Islt LEENA <=0.12 S cefTRIAXone Islt LEENA <=0.12 S Erythromycin Islt LEENA <=0.12 S Linezolid Islt LEENA <=2 S Vancomycin Islt LEENA 0.25 S Staphylococcus epidermidis: REACTION cefOXitin Susc Islt NEG Doxycycline Islt LEENA <=0.5 Clindamycin Islt LEENA <=0.12 S Clindamycin.induced Susc Islt NEG Erythromycin Islt LEENA <=0.25 S Gentamicin Islt LEENA <=0.5 S Linezolid Islt LEENA 1 S Oxacillin Susc Islt <=0.25 S Tetracycline Islt LEENA <=1 S TMP SMX Islt LEENA <=10 S Vancomycin Islt LEENA 1 S Normal [facility] Comment on above: Performed By: #### M 100.2000, M100.3000, M100.4001 ####[facility] [id number] [place], [address] Gram Stainon 05-14-2024 GS List Antibiotics Las t 48 Hours? none List Antibiotics to be Started? none Gram Stain No organisms seen No cells seen Normal [facility] Comment on above: Performed By: #### L 300.3900 #### [facility] [address] [place], [address] Bacteria identified Anaer cx Nom (Unsp spec)Ordered By: Zarina Fish on 05-11-2024 Anaerobic Culture No anaerobic bacteri a isolated. [facility] Gram stainOrdered By: Prisca Fish on 05-11-2024 Microscopic observation Gram stain Nom (Unsp spec) [facility] Routine wound cultureOrdered By: Zarina Fish on 05-11-2024 Wound Culture Streptococcus pseudoporcinus Abnormal [facility] Wound Culture Staphylococcus epidermidis Abnormal [facility] Gram Stainon 05-05-2024 GS List Antibiotics Las t 48 Hours? none List Antibiotics to be Started? none Gram Stain 1+ Red Blood Cells Rare Gram positive cocci No Epithelial cells Normal [facility] Comment on above: Performed By: #### L 300.3900 #### [facility] [address] [place], [address] Bacteria identified Anaer cx Nom (Unsp spec)Ordered By: Zarina Fish on 05-04-2024 Anaerobic Culture Anaerobic cocci Abnormal [facility] Gram stainOrdered By: Prisca Fish on 05-04-2024 Microscopic observation Gram stain Nom (Unsp spec) [facility] Routine wound cultureOrdered By: Zarina Fish on 05-04-2024 Wound Culture Dermabacter hominis Abnormal [facility] Carotid Duplex Ultrasoundon 05-02-2024 Carotid Duplex Ultrasound [facility] Cardiovascular Services [address] [place] [address] Carotid Duplex Ultrasound 05/02/24 0833 MR#: [id number] Acct: [id number] Name: JC GROSS Rep #: [id number] : 1945 78 From: Stan De Luna MD Attending Dr: Dr. Stan De Luna MD Status: REG C LI Ordering Dr: Zarina Fish Date: 05/02/24 Location: [facility] Sex: F C Admitted: Reason For Study: Carotid bruit Rt. Velocities/BP Lt. Velocities/BP Prox CCA 65.5/12.6 cm/sec. Prox CCA 68.5/21.2 cm/sec. Mid CCA 57.9/15.4 cm/sec. Mid CCA 65.2/13.5 cm/sec. Dist CCA 68.3/12.6 cm/sec. Dist CCA 56.4/16.8 cm/sec. Prox ICA 62.6/20.1 cm/sec. Prox ICA 82.8/15.7 cm/sec. Mid ICA 84.4/24.8 cm/sec. Mid ICA 68.5/21.2 cm/sec. Dist ICA 98.1/22.3 cm/sec. Dist ICA 88.9/23.7 cm/sec. Rt. ICA/CCA = 1.69. Lt. ICA/CCA = 1.36. Prox ECA 65.5/9.7 cm/sec. Prox ECA 75.8/13.7 cm/sec. Rt. Vert. 68.5/13.5 cm/sec. Lt. Vert. 41.3/9.9 cm/sec. Right Extracranial There is homogeneous, smooth atherosclerotic plaque noted in the right common carotid artery. There is heterogeneous, irregular atherosclerotic plaque noted in the right internal carotid artery. There is heterogeneous, irregular atherosclerotic plaque noted in the right external carotid artery. Antegrade flow is noted in the right vertebral artery. Left Extracranial There is intimal thickening but no significant atherosclerotic plaque noted in the left common carotid artery. There is heterogeneous, irregular atherosclerotic plaque noted in the left internal carotid artery. There is homogeneous, smooth atherosclerotic plaque noted in the left external carotid artery. Antegrade flow is noted in the left vertebral artery. Procedure Carotid Duplex [id number]. This is a Carotid Duplex examination using B-mode, color flow and specral Doppler. Exam performed in department. VL/Carotid Duplex Ultrasound Interpretation Summary Mild (<50%) stenosis right extracranial internal carotid. Mild (<50%) stenosis left extracranial internal carotid. Patent and antegrade vertebrals bilaterally. ___ Ordering Physician: Zarina Fish Referring Physician: Lynette Burton Performed By: Nydia Casas RVT 05/03/24 1542 Date Stan De Luna MD CC: NILSA Burton; EZRA Rincon; Dr. Stan De Luna MD Date Dictated: 05/02/2433 Date Transcribed: 05/03/241541 Cloud Services Architect: Signed Normal [facility] Venous Duplex US - Vishnu [facility] 05-02-2024 Venous Duplex US - Vishnu [facility] Cardiovascular Services [address] [place] [address]. [place] [address] Venous Duplex US - Vishnu [facility] 05/02/24 0850 MR#: [id number] Acct: [id number] Name: JC GROSS Rep #: [id number] : 1945 78 From: Stan De Luna MD Attending Dr: Dr. Stan De Luna MD Status: LOLI Pickett DONA Ordering Dr: Zarina Fish Date: 05/02/24 Location: [facility] Sex: F C Admitted: Reason For Study: Bilateral leg pain RIGHT LEFT CFV is compressible, spontaneous, phasic, CFV is compressible, spontaneous, phasic, competent and demonstrates normal competent, and demonstrates normal augmentation. augmentation. FV is compressible, spontaneous, phasic, FV is compressible, spontaneous, phasic, competent and demonstrates normal competent and demonstrates normal augmentation. augmentation. POP V is compressible, spontaneous, phasic, POP V is compressible, spontaneous, phasic, competent and demonstrates normal competent and demonstrates normal augmentation. augmentation. T/P Trunk is compressible. T/P Trunk is compressible. PTV is compressible. PTV is compressible. RT PerV is compressible. LT PerV is compressible. SFJ is competent and measures 0.57 cm. SFJ is competent and measures 0.50 cm. GSV proximal thigh measures 0.33 x 0.32 cm. GSV proximal thigh measures 0.26 x 0.27 cm. GSV at knee measures 0.23 x 0.24 cm. GSV above knee is competent. GSV is competent throughout. GSV at knee measures 0.22 x 0.24 cm. ASV mid calf is INCOMPETENT for greater than GSV below knee is INCOMPETENT for greater 0.5 seconds and measures 0.20 x 0.21 cm. than 0.5 seconds. SSV at junction is INCOMPETENT for greater SSV at junction is INCOMPETENT for greater than 0.5 seconds and measures 0.29 cm. than 0.5 seconds and measures 0.31 cm. SSV is partially compressible with bright SSV is partially compressible with bright intraluminal echeos noted. intraluminal echeos noted. Procedure This is a venous duplex using B-mode, color flow and spectral Doppler. Exam performed in department. Patient was scanned in reverse Trendelenburg position during reflux assessment. VL/Venous Duplex US - Vishnu Extrem Interpretation Summary Deep veins of the bilateral lower extremities are patent and compressible segmentally. There is no evidence of bilateral lower extremity deep vein thrombosis. The bilateral great saphenous veins appear patent and compressible segmentally. Positive for reflux in the right accessory saphenous vein in the thigh, small saphenous vein. Chronic superficial vein thrombus noted. Positive for reflux in the left great saphenous vein below the knee, small saphenous vein. Chronic superficial vein thrombus noted. ___ Ordering Physician: Zarina Fish Referring Physician: Lynette Burton Performed By: Nydia Casas RVT 05/03/24 1545 Date Stan De Luna MD CC: BASEBALL SEWER HANDNixon Burton; EZRA Rincon; Dr. Stan De Luna MD Date Dictated: 05/02/24 0850 Date Transcribed: 05/03/241544 Cloud Services Architect: Signed Normal [facility] Prothrombin Time w/INRon INR Coag (PPP) [Relative time] 2.3 {INR} Normal [facility] Comment on above: Performed By: #### L 300.3900 #### [facility] [address] [place], [place], [id number] PT Coag (PPP) [Time] 24.9 s High 11.7-14.[address] [facility] Comment on above: Performed By: #### L 300.3900 #### [facility] [address] [place], [place], [id number] Prothrombin Time w/INRon INR Coag (PPP) [Relative time] 1.9 {INR} Normal [facility] Comment on above: Performed By: #### L 300.3900 #### [facility] [address] [place], [address] PT Coag (PPP) [Time] 21.7 s High 11.7-14.[address] [facility] Comment on above: Performed By: #### L 300.3900 #### [facility] [address] [place], [address] Wound Ctr History AND Physic diogenes 03-30-2024 Wound Ctr History & Physical [facility] [address] [place] [address] H P Exam - Wound Care 03/30/24 1555 MR#: [id number] Acct: [id number] Name: JC GROSS Rep #: [id number] : 1945 78 From: Zarina MUNGUIA PCP: NILSA Macias Status:REG RCR Location: History of Present Illness Date of Service: 03/30/24 Chief Complaint: R posterolateral calf wound History of Wound: Jc Gross is a 78 y/o female who presents today for evaluation and management of a right posterolateral calf wound. She is accompanied to her appointment today by two family members. She is known to me from the vascular office where I have seen her for suspected venous insufficiency where I ordered venous reflux study which she is not scheduled to complete until 04/19. She reports that shortly after I saw her in the office in December, she developed this R calf wound. She thinks that she may have bumped this area of her leg. At home, she has been applying B W ointment and other various herb salves without much improvement. She was started on some antibiotic by her PCP which she did not tolerate well, she cannot recall what antibiotic that was but she thinks she still has the bottle at home. She recently was seen for this wound in urgent care 03/20 at which time cultures were obtained. She was empirically started on Amoxicillin 875mg BID x 14 days which she is tolerating so far. The cultures ultimately grew lerma-sensitive E. coli. She notes mild to moderate drainage from the wound. She denies any spreading erythema, foul odor, acutely worsened edema, N/V, F/C. She is not diabetic. She does not smoke. Medical history is otherwise significant for A-fib (chronically anticoagulated with Coumadin), sick sinus syndrome status post pacemaker placement (200 9). [facility] Medical History Mobitz type 2 second degree atrioventricular block Sick sinus syndrome due to SA node dysfunction Chronic systolic (congestive) heart failure Paroxysmal atrial fibrillation Sinoatrial node dysfunction FH: sudden cardiac (SCD) Nonischemic cardiomyopathy Elevated troponin Acute calculous cholecystitis Home Medications ???Medication ???Instructions ???Recorded ???Last Taken ???Type calcium 200 mg (as 1 tab PO DAILY 01/23/20 Unknown History citrate)-vitamin D3 6.25 mcg (250 unit) tablet magnesium oxide 200 mg PO DAILY 01/23/20 Unknown History warfarin 2 mg tablet 2 mg PO .COMPLEX #90 tabs 11/04/22 Unknown Rx ramipril 2.5 mg capsule 2.5 mg PO DAILY #90 caps 08/23/23 Unknown Rx warfarin 5 mg tablet 5 mg PO DAILY #90 TABLETS 08/23/23 Unknown Rx amoxicillin 875 mg tablet 875 mg PO Q12H #28 tabs 03/20/24 Unknown Rx Allergy/AdvReac Type Severity Reaction Status Date / Time No Known Allergies Allergy Verified 03/20/24 09:41 Family History Brother Sudden cardiac Brother Myocardial infarction, Onset Age: 40 Heart disease Sister Hypertension Surgical History History of left heart catheterization (05/27/16) Presence of permanent cardiac pacemaker (2008) Social History Smoking Status: Never smoker alcohol intake: never substance use type: does not use caffeine: Yes Type: coffee what type of physical activity do you participate in: bicycling frequency: daily duration: < 15 minutes/day seatbelt use: always do you feel safe at home: Yes Vital Signs Vital Signs Vital Signs: 03/30/24 14:17 Temperature 97 F L Temperature Source Temporal Pulse Rate 71 Respiratory Rate 18 Blood Pressure 138/53 H Blood Pressure Mean 81 Blood Pressure Source Monitor Blood Pressure Position Sitting Blood Pressure Location Right Arm Oxygen Delivery Method Room Air Physical Exam Const alert, oriented x3 and no apparent distress General Appearance: cooperative and comfortable HEENT normocephalic, hearing grossly normal bilaterally, external ears normal and external nose normal Eyes EOMs intact bilaterally General Eye: normal appearance of both eyes Neck General: normal visual inspection and trachea midline Resp normal respiratory effort, normal air movement, no retractions and no use of accessory muscles Effort and Inspection: able to speak in complete sentences Cardio regular rate and regular rhythm Extremity General Extremity: edema bilateral Peripheral Pulses: Yes dorsalis pedis pulses present Skin Wounds: wounds noted Wound Narrative: Right posterolateral calf wound which has significant overlying slough but granular tissue at the base. There is surrounding erythema and warmth. No lymphangitic streaking. No focal ed (more content not included)... Normal [facility] Culture, Anaerobic Any Sourc renita 03-25-2024 CUAN AEROBIC SWAB ONLY SUBMITTED. GROWTH OF ANAEROBES MAY BE INHIBITED. Susceptibility not normally performed on this organism. [place]rice nation Normal [facility] Comment on above: Performed By: #### M 100.3000, M100.4001, M100.2000 ####[facility] [address] [place], [address] Prothrombin Time w/INRon INR Coag (PPP) [Relative time] 2.0 {INR} Normal [facility] Comment on above: Performed By: #### L 044.3900 #### [facility] [address] [place], [address] PT Coag (PPP) [Time] 22.5 s High 11.7-14.[address] [facility] Comment on above: Performed By: #### L 520.3900 #### [facility] [address] [place], [address] Wound Cultureon 03-22-2024 WC AEROBIC SWAB ONLY SUBMITTED. GROWTH OF ANAEROBES MAY BE INHIBITED. Escherichia coli Amount Growth 3+ Escherichia coli: REACTION Ampicillin Islt LEENA <=2 Ampicillin+Sulbac Islt LEENA <=2 S ceFAZolin Islt LEENA <=4 S Cefepime Islt LEENA <=0.12 S cefTRIAXone Islt LEENA <=0.25 S Ciprofloxacin Islt LEENA <=0.25 S B-Lactamase Extended Susc Islt NEG Gentamicin Islt LEENA <=1 S Imipenem Islt LEENA <=0.25 S levoFLOXacin Islt LEENA <=0.12 S Pip+Tazo Islt LEENA <=4 S Tobramycin Islt LEENA <=1 S TMP SMX Islt LEENA <=20 S Normal [facility] Comment on above: Performed By: #### M 100.3000, M100.4001, M1 ####[facility] [address] [place], [place], [address] Gram Stainon 03-20-2024 GS AEROBIC SWAB ONLY SUBMITTED. GROWTH OF ANAEROBES MAY BE INHIBITED. Gram Stain 2+ Gram positive cocci 2+ Gram negative rods 1+ Gram positive rods Normal [facility] Comment on above: Performed By: #### M 100.3000, M100.4001, ####[facility] [address] [place], [place], [address] Urgent Care Visit Reporton 1 Urgent Care Visit Report [facility] [address], [address] [place], [place] [address] OFFICE VISIT Date of Service: 03/20/24 MR#: [id number] Acct: [id number] Name: RENATO,JC Rep #: [id number] : 1945 Provider: NILSA gould Age/Sex: 78/F Location: [facility] Status: Signed Intake Vital Signs 02/23/24 08:45 03/20/24 09:40 Height 5 ft 2 in 5 ft 4 in Weight: 138 lb 8 oz BMI 23.8 BP 148/78 H Blood Pressure Location Lt brachial Position Sitting Respiration 14 Pulse 68 Pulse Source NIBP Temp 97.7 F L Temp Source Temporal Pulse Oximetry (%) 96 Oxygen Delivery Method room air Intake Visit Reasons: WOUND ON RT LEG Chief Complaint: right leg wound Exhibits Manager Required: No Is patient in pain?: Yes Allergies No Known Allergies Allergy (Verified 03/20/24 09:41) Medications ???Medication ???Instructions ???Recorded ???Confirmed ???Type calcium 200 mg (as 1 tab PO DAILY 01/23/20 03/20/24 History citrate)-vitamin D3 6.25 mcg (250 unit) tablet magnesium oxide 200 mg PO DAILY 01/23/20 03/20/24 History warfarin 2 mg tablet 2 mg PO .COMPLEX #90 tabs 11/04/22 03/20/24 Rx ramipril 2.5 mg capsule 2.5 mg PO DAILY #90 caps 08/23/23 03/20/24 Rx warfarin 5 mg tablet 5 mg PO DAILY #90 TABLETS 08/23/23 03/20/24 Rx amoxicillin 875 mg tablet 875 mg PO Q12H #28 tabs 03/20/24 03/20/24 Rx Is last menstrual period known: No Post menopausal: Yes Patient : No Have you fallen in the past year?: No PFSH Medical History Mobitz type 2 second degree atrioventricular block Sick sinus syndrome due to SA node dysfunction Chronic systolic (congestive) heart failure Paroxysmal atrial fibrillation Sinoatrial node dysfunction FH: sudden cardiac (SCD) Nonischemic cardiomyopathy Elevated troponin Acute calculous cholecystitis Surgical History History of left heart catheterization (05/27/16) Presence of permanent cardiac pacemaker (2008) Family History Brother Sudden cardiac Brother Myocardial infarction, Onset Age: 40 Heart disease Sister Hypertension Social History Smoking Status: Never smoker alcohol intake: never substance use type: does not use caffeine: Yes Type: coffee what type of physical activity do you participate in: bicycling frequency: daily duration: < 15 minutes/day seatbelt use: always do you feel safe at home: Yes HPI HPI Chief Complaint: right leg wound Details: JC GROSS, is a 78 F who presents to the office today for right leg wound. reports noticed around December sometime. she has been treating with B W ointment and Burdock leaves dressing twice a day. reports no improvement, worsening, now red and swollen around wound. she reports upcoming vascular appt to check blood flow but has never seen provider for this wound. she also follows [facility], on warfarin, she is unsure why, they manage INR. ROS Const Constitutional: No chills, fatigue, fever(s) or malaise Skin Skin: Positive for wounds Endo Endocrine: No fatigue Exam Const General: cooperative and not in acute distress Orientation: alert Skin Wounds: wounds noted right lower leg size (3cm L X 2cm W x 0.3cm D), bed, drainage serosanguinous and yellow, without odor, open and with surrounding erythema Coding Level of Care Code Off vis,est,level 4 Diagnoses Cellulitis of right lower leg L03.115 Ulcer of right lower extremity L97.919 Assessment and Plan Assessment and Plan (1) Cellulitis of right lower leg: Status: Acute (2) Ulcer of right lower extremity: Status: Acute Orders: Orders Culture, Deep Wound Today S81.801A - Unspecified open wound, right lower leg, initial encounter Referrals Wound Care L03.115 - Cellulitis of right lower limb, L97.919 - Non-pressure chronic ulcer of unspecified part of right lower leg with unspecified severity Medications: New amoxicillin 875 mg PO Q12H 28 tabs 0RF L03.115 - Cellulitis of right lower limb Plan culture obtained today. start amoxicillin - discussed medications side effects and how to take. refer to [facility], faxed referral, telephone number given to patient. [facility] monitors INR for warfarin therapy, told to call office for next INR date due to antibiotic use. follow up with PCP. Clinical Quality Measures Falls Risk Screening/Assistive Devices Have you fallen in the past year?: No 03/20/24 1142 Date Mame Jacob NP BASEBALL SEWER HAND-C Cosigner Signature: Date (more content not included)... Normal [facility] Echo Completeon 03-06-2024 Echo Complete [facility] [place] [address] Echo Complete 03/06/24 1022 MR#: [id number] Acct: [id number] Name: JC GROSS Rep #: [id number] : 1945 78 From: Anupam Lizarraga MD Attending Dr: EZRA Pineda Status: REG CLI Ordering Dr: Brook Gage PA Date: 12/21 Location: [facility] Sex: F C Admitted: Reason For Study: SOB Procedure This was a 2D Doppler, Color Flow transthoracic echocardiogram. Exam performed in department. Left Ventricle Normal LV size. Left ventricular systolic function is normal. Stage 1 diastolic dysfunction. No regional wall motion abnormalities noted. Right Ventricle Normal RV size. ICD or pacer leads identified within the right ventricle. Normal systolic function. Atria The left atrium is mildly enlarged. Normal right atrium. Tricuspid Valve Normal tricuspid valve. Mild tricuspid valve insufficiency. Pulmonary artery systolic pressure is 28 mmHg. Aortic Valve Trisinus/trileaflet aortic valve. Mild focal aortic valve calcification. Peak aortic valve gradient 32 mmHg. Mean aortic valve gradient 18 mmHg. Mild (1+) aortic valve insufficiency. Pulmonic Valve Normal pulmonic valve. Great Vessels Normal aortic root. The pulmonary artery is normal size. Normal inferior vena cava. Pericardium/Pleural No pericardial effusion. MMode/2D Measurements Calculations LVIDd: 4.7 cm IVSd: 1.1 cm LVOT diam: 2.0 cm LVIDs: 3.4 cm LVPWd: 0.94 cm LVOT area: 3.1 cm2 RVDd: 3.6 cm FS: 28.0 % Ao root diam: 3.4 cm asc Aorta Diam: 3.4 cm LAV(MOD-bp): 82.3 ml LA dimension: 4.6 cm LAV(MOD-bp) Indexed: 50.9 ml/m2 LAV(MOD-sp2): 81.1 ml LAV(MOD-sp4): 79.3 ml LA A4 area: 23.9 cm2 RA A4 area: 16.7 cm2 Time Measurements MV dec time: 0.18 sec Doppler Measurements Calculations MV E max cory: 88.9 cm/sec Lat Peak E' Cory: 12.7 cm/sec Med Peak E' Cory: 7.3 cm/sec MV A max cory: 97.8 cm/sec E/E' lat: 7.0 E/E' med: 12.3 MV E/A: 0.91 MV V2 max: 106.0 cm/sec MV P1/2t max cory: 106.0 cm/sec Ao V2 max: 280.2 cm/sec MV max P.5 mmHg MV P1/2t: 77.8 msec Ao max P.5 mmHg MV V2 mean: 59.3 cm/sec MV dec slope: 399.1 cm/sec2 Ao V2 mean: 199.4 cm/sec MV mean P.7 mmHg MVA(P1/2t): 2.8 cm2 Ao mean P.3 mmHg MV V2 VTI: 34.9 cm Ao V2 VTI: 74.3 cm MVA(VTI): 2.1 cm2 AV (velocity ratio): 0.31 AGAPITO(I,D): 0.96 cm2 AGAPITO(V,D): 1.1 cm2 AI max cory: 337.1 cm/sec LV V1 max: 96.5 cm/sec MR max cory: 509.6 cm/sec AI max P.5 mmHg LV V1 max P.7 mmHg MR max P.9 mmHg LV V1 mean P.7 mmHg MR mean cory: 413.3 cm/sec AI dec slope: 176.0 cm/sec2 LV V1 mean: 59.6 cm/sec MR mean P.6 mmHg AI P1/2t: 561.1 msec LV V1 VTI: 23.4 cm MR VTI: 212.4 cm SV(LVOT): 71.6 ml PA V2 max: 94.0 cm/sec PI end-d cory: 57.0 cm/sec PA max PG (full): 7.9 mmHg TR max cory: 247.2 cm/sec TR max P.4 mmHg ECHO/Echo Complete Interpretation Summary Normal LV size. Left ventricular systolic function is normal. The left atrium is mildly enlarged. Stage 1 diastolic dysfunction. Mild (1+) aortic valve insufficiency. Mean aortic valve gradient 18 mmHg. ICD or pacer leads identified within the right ventricle. ___ Ordering Physician: Brook Gage Referring Physician: Brook Gage Performed By: Fabricio Tierney and Student 03/06/24 163 Date Anupam Lizarraga MD CC: NILSA Burton; EZRA Pineda Date Dictated: 03/06/24 1022 Date Transcribed: 03/06/241632 Cloud Services Architect: Signed Normal [facility] BNP,B-Type NATRIURETIC PEPTI Patricia 02-23-2024 Natriuretic peptide B (Bld) [Mass/Vol] 363.8 pg/mL High 0-100 [facility] Comment on above: Performed By: #### L 542.6870 #### [facility] [address] [place], [place], [address] CBC W/Diff, Automatedon 01-30 Anisocytosis Ql (Bld) 2+ Normal [facility] Comment on above: Performed By: #### L [id number] #### [facility] [address] [place], [place], [address] SMEAR COMMENT SCANNED Normal [facility] Comment on above: Performed By: #### L [id number] #### [facility] [address] [place], [address] Cardiology Visit Reporton Cardiology Visit Report [facility] [address] [place], [place] [address] OFFICE VISIT Date of Service: 02/23/24 MR#: [id number] Acct: [id number] Name: JC GROSS Rep #: [id number] : 1945 Provider: EZRA Paige Age/Sex: 78/F Location: [facility] Status: Signed [facility] History of Present Illness Details: JC GROSS, is a 78 F who presents to the office today for a cardiovascular follow-up. She has a history of nonischemic cardiomyopathy, second-degree AV block with pacemaker placement and a history of atrial fibrillation.Heart catheterization in 2016 demonstrated normal coronary arteries with a reduced ejection fraction. She underwent an echocardiogram as well as a myocardial perfusion scan which were both normal. She c/o of fatigue. She feels that this is worse than before. She did need to stop and rest coming up to the office. She did have an episode of where she had abdominal pain earlier this pain that radiate around to her back. She does not have any chest pain. She does not have any palpitations. She does have some lower extremity edema. Intake Vital Signs 08/24/23 09:26 01/12/24 11:49 02/23/24 08:45 Height 5 ft 4 in 5 ft 2 in 5 ft 2 in Weight: 137 lb BMI 25.0 BP 153/74 H Blood Pressure Location Lt brachial Position Sitting Respiration 18 Pulse 74 Pulse Source Monitor Pulse Oximetry (%) 97 Intake Visit Reasons: 6 M FU Exhibits Manager Required: No Is patient in pain?: No Allergies No Known Allergies Allergy (Verified 02/23/24 08:50) Medications ???Medication ???Instructions ???Recorded ???Confirmed ???Type calcium citrate 200 mg 1 tab PO DAILY 01/23/20 02/23/24 History calcium-vitamin D3 6.25 mcg (250 unit) tablet magnesium oxide 200 mg PO DAILY 01/23/20 02/23/24 History warfarin 2 mg tablet 2 mg PO .COMPLEX #90 tabs 11/04/22 02/23/24 Rx metoprolol succinate 50 mg See Rx Instructions .Route 06/03/23 02/23/24 Rx tablet,extended release 24 hr .COMPLEX #90 tabs ramipril 2.5 mg capsule 2.5 mg PO DAILY #90 caps 08/23/23 02/23/24 Rx warfarin 5 mg tablet 5 mg PO DAILY #90 TABLETS 08/23/23 02/23/24 Rx furosemide 20 mg tablet 20 mg PO DAILY #90 TABLETS 09/27/23 02/23/24 Rx Have you fallen in the past year?: No PFSH Medical History Mobitz type 2 second degree atrioventricular block Sick sinus syndrome due to SA node dysfunction Chronic systolic (congestive) heart failure Paroxysmal atrial fibrillation Sinoatrial node dysfunction FH: sudden cardiac (SCD) Nonischemic cardiomyopathy Elevated troponin Acute calculous cholecystitis Surgical History History of left heart catheterization (05/27/16) Presence of permanent cardiac pacemaker (2008) Family History Brother Sudden cardiac Brother Myocardial infarction, Onset Age: 40 Heart disease Sister Hypertension Social History Smoking Status: Never smoker alcohol intake: never substance use type: does not use caffeine: Yes Type: coffee what type of physical activity do you participate in: bicycling frequency: daily duration: < 15 minutes/day seatbelt use: always do you feel safe at home: Yes Cardiology Exam Const Appearance: cooperative, comfortable, no acute distress, well developed and frail appearing Orientation: alert, awake and oriented x3 Head Head: normal to inspection Ears: hearing grossly normal bilaterally Nose: external nose normal Face and Sinus: face symmetric Mouth: oral mucosae normal, lip normal and moist mucous membranes Eyes General: appearance normal, both eyes and all related structures Eyelids: eyelids normal Conjunctivae: conjunctivae normal Pupils: PERRL EOM: EOM intact bilaterally Neck Neck: normal visual inspection and trachea midline; Negative no JVD Carotids: Negative bruit Chest Chest inspection: normal inspection of the chest Auscultation: Bilateral: Clear to Auscultation Cardio Palpation: normal PMI Rate: regular rate Rhythm: regular rhythm Heart sounds: S1 normal, S2 normal and murmur; Negative rub or gallop Murmur: Grade 2/6, harsh and mid systolic GI GI: soft, no hepatosplenomegaly and bowel sounds present Neuro General: patient alert, patient awake, patient oriented x3 and CN's II-XI intact bilaterally Extremities Pulses: Normal: Right Posterior Tibial Pulse, Left Posterior Tibial Pulse, Right Radial Pulse and Left Radial Pulse Lower Extremity Edema: None: Bilateral Psych Psychological: normal affect Supplemental Info Supplemental Information Echocardio (more content not included)... Normal [facility] Iron+Iron Binding Capacityon 02-23-2024 Iron [Mass/Vol] 92 ug/dL Normal 50-170 [facility] Comment on above: Performed By: #### L 300.3900 #### [facility] [address] [place], [address] IRON SATURATION 31.0 Normal 15.0-55.0 [facility] Comment on above: Performed By: #### L 300.3900 #### [facility] [address] [place], [address] TIBC 297 ug/dL Normal 250-450 [facility] Comment on above: Performed By: #### L 300.3900 #### [facility] [address] [place], [address] MR/BMSLaura 01-26-2024 MR/BMSJesusBVPorfirio [facility] [address] [place] [address] OFFICE VISIT Date of Service: 01/26/24 MR#: [id number] Acct: [id number] Name: RENATOJC Rep #: [id number] : 1945 Provider: EZRA Rincon Age/Sex: 78/F Location: [facility] Status: Signed with Addenda ADDENDUM by EZRA Rincon on 01/26/24 at 1036 Intake Chief Complaint: establish care Allergies No Known Allergies Allergy (Verified 01/26/24 09:09) Medications ???Medication ???Instructions ???Recorded ???Confirmed ???Type calcium citrate 200 mg 1 tab PO DAILY 01/23/20 01/26/24 History calcium-vitamin D3 6.25 mcg (250 unit) tablet magnesium oxide 200 mg PO DAILY 01/23/20 01/26/24 History warfarin 2 mg tablet 2 mg PO .COMPLEX #90 tabs 11/04/22 01/26/24 Rx metoprolol succinate 50 mg See Rx Instructions .Route 06/03/23 01/26/24 Rx tablet,extended release 24 hr .COMPLEX #90 tabs ramipril 2.5 mg capsule 2.5 mg PO DAILY #90 caps 08/23/23 01/26/24 Rx warfarin 5 mg tablet 5 mg PO DAILY #90 TABLETS 08/23/23 01/26/24 Rx furosemide 20 mg tablet 20 mg PO DAILY #90 TABLETS 09/27/23 01/26/24 Rx Assessment and Plan Assessment and Plan (1) Venous insufficiency of both lower extremities: Status: Acute (2) Lipodermatosclerosis: Status: Acute (3) Carotid bruit: Status: Acute Orders: Orders Venous Duplex US - Vishnu Extrem Today M79.3 - Panniculitis, unspecified, M79.606 - Pain in leg, unspecified Carotid Duplex Ultrasound Today R09.89 - Other specified symptoms and signs involving the circulatory and respiratory systems Plan Exam findings are consistent with venous insufficiency. Will obtain a venous reflux study to further evaluate. I advise conservative management measures for now. I recommend obtaining 20 to 30 mmHg compression stockings to see if this provides any further benefit. I also advise she elevate her legs at times of rest and incorporate exercise such as walking and/or calf pumps. I did hear a carotid bruit on exam today. Will obtain a carotid duplex to further evaluate. She will return to the office in 3 to 4 months after trial of conservative measures and imaging as ordered, sooner as needed. HPI HPI Narrative: Jc Gross is a 78-year-old female who presents today for evaluation of her lower extremity discomfort, edema, and discoloration. She reports she has noticed discoloration of her bilateral shins for many years. More recently over the last year, she has noticed increased swelling and aching pain in both of her lower legs but worse in the right. She has been wearing 15 to 20 mmHg compression stockings. She has noticed some improvement in her symptoms but does still have significant aching in the right leg. She does not have any wounds and denies any history of wounds. She denies any history of DVT, SVT, PE, or prior venous interventions. She does report history of venous problems within her family. Medical history is otherwise significant for A-fib (chronically anticoagulated with Coumadin), sick sinus syndrome status post pacemaker placement (2008). She denies any history of stroke or mini stroke. She never smoked. She is not diabetic. Physical Exam Const alert, oriented x3, no apparent distress and average body habitus General Appearance: cooperative, comfortable and well kempt HEENT normocephalic, head/scalp atraumatic, hearing grossly normal bilaterally, external ears normal and external nose normal Eyes EOMs intact bilaterally General Eye: normal appearance of both eyes Neck General: normal visual inspection and trachea midline Carotids: bruit Resp normal respiratory effort, normal air movement, no retractions, no use of accessory muscles and clear to auscultation bilaterally Effort and Inspection: able to speak in complete sentences; Negative for labored, grunting, stridor or audible wheezes Cardio regular rate and regular rhythm Heart Sounds: murmur Bruits: carotid bruit Extremity normal to inspection and no calf tenderness Extremity Narrative: Bilateral lower legs with hemosiderin deposition and lipodermatosclerosis. Bilateral reticular veins. Right calf with varicose veins. 1+ pitting edema at the right ankle, trace edema at the left ankle. Skin no rashes or lesions noted and no wounds Neuro oriented x3, CN's II-XII intact bilaterally, moves all extremities, no focal motor deficits and no sensory deficits noted Speech: speech normal Psych mental status grossly normal Appearance: grossly normal Attitude: calm and engaged Speech: normal speech Mood Affect: euthymic mood Judgement: judgement good 01/26/24 1036 Date Zarina Fish cc: * Signed Intake Vital Signs 09/13/23 11:03 12/29 (more content not included)... Normal [facility] Basic Metabolic Profile (BMP )on 01-12-2024 BUN/CRE 20.6 RATIO High 10-20 [facility] Comment on above: Order Comment: 1Y Performed By: #### L 653.2743 #### [facility] [address] [place], [address] CA,Total 9.7 mg/dL Normal 8.5-10.1 [facility] Comment on above: Order Comment: 1Y Performed By: #### L 300.3900 #### [facility] [address] [place], [address] Chloride [Moles/Vol] 104 mmol/L Normal 98-[address] [facility] Comment on above: Order Comment: 1Y Performed By: #### L 300.3900 #### [facility] [address] [place], [address] CO2 [Moles/Vol] 30.0 mmol/L Normal 21.0-32.0 [facility] Comment on above: Order Comment: 1Y Performed By: #### L 300.3900 #### [facility] [address] [place], [address] Creatinine [Mass/Vol] 1.36 mg/dL High 0.55-1.02 [facility] Comment on above: Order Comment: 1Y Result Comment: The validity of the calculated GFR GFRAA in patients over 70 years has not been determined. Clinical correlation is essential. Performed By: #### L 300.3900 #### [facility] [address] [place], [address] ECRCL 30.00 ml/min Normal [facility] Comment on above: Order Comment: 1Y Performed By: #### L 300.3900 #### [facility] [address] [place], [address] EST GFR - AA 48 mL/min Low >60 [facility] Comment on above: Order Comment: 1Y Result Comment: Afri can Egyptian GFR Calc Performed By: #### L 300.3900 #### [facility] [address] [place], [address] GAP 6 Normal 5-15 [facility] Comment on above: Order Comment: 1Y Performed By: #### L 300.3900 #### [facility] [address] [place], [address] GFR/1.73 sq M.predicted among non-blacks MDRD (S/P/Bld) [Vol rate/Area] 40 mL/min/{1.73_m2} Low >60 [facility] Comment on above: Order Comment: 1Y Result Comment: Non- GFR Calc Performed By: #### L 300.3900 #### [facility] [address] [place], [address] Glucose [Mass/Vol] 122 mg/dL High 74-106 [facility] Comment on above: Order Comment: 1Y Result Comment: Fast ing Glucose result from 100 to 125 mg/dL suggests IMPAIRED HOMEOSTASIS per A.D.A. criteria. Performed By: #### L 300.3900 #### [facility] [address] [place], [address] Potassium [Moles/Vol] 3.8 mmol/L Normal 3.5-5.1 [facility] Comment on above: Order Comment: 1Y Performed By: #### L 300.3900 #### [facility] [address] [place], [address] Sodium [Moles/Vol] 140 mmol/L Normal 136-145 [facility] Comment on above: Order Comment: 1Y Performed By: #### L 300.3900 #### [facility] [address] [place], [address] Urea nitrogen [Mass/Vol] 28 mg/dL High 7-18 [facility] Comment on above: Order Comment: 1Y Performed By: #### L 300.3900 #### [facility] [address] [place], [address] CBC W/Diff, Automatedon 08- Anisocytosis Ql (Bld) 1+ Normal [facility] Comment on above: Performed By: #### L 300.3900 #### [facility] [address] [place], [address] Chest 1 View (Portable)on Chest 1 View (Portable) [facility] Imaging Services [address] [place] [address] Chest 1 View (Portable) MR#: [id number] Acct: [id number] Name: JC GROSS Rep #: [id number] : 1945 F 78 From: Shayan Guzmán MD PCP: NILSA Macias Status: REG ER Study: Chest 1 View (Portable) Date of Exam: 01/12/24 Exam# [id number] Ordering Dr: Elan Walls MD [id number] STUDY: X-RAY CHEST REASON FOR EXAM: Female, 78 years old. Chest pain. TECHNIQUE: Single frontal view of the chest. COMPARISON: January 11, 2024 FINDINGS: Low volume inspiration with bibasilar atelectasis. There is no demonstrated pleural abnormality. Stable cardiomegaly with dual lead cardiac pacer. Normal mediastinum and patricia. Normal visualized pulmonary arteries. Aortic tortuosity with calcification unchanged. No abnormality of the visualized soft tissue structures of the upper abdomen. RAD/Chest 1 View (Portable) IMPRESSION: Stable chest with no acute or active cardiopulmonary disease. Electronically Signed: Shayan Guzmán MD at 12:42 EDT , CC: BASEBALL SEWER HANDNixon Burton; Dr. Elan Walls MD Cloud Services Architect: Signed Normal [facility] Emergency Department Summary on 01-12-2024 Emergency Department Summary [facility] Medical Records Department [address] [place] [address] Emergency Department Summary 01/12/24 MR#: [id number] Acct: [id number] Name: JC GROSS Rep #: [id number] : 1945 78 From: Elan Walls MD PCP: NILSA Macias Status:REG ER Location: ED HPI History of Present Illness Chief Complaint: Chest Pain Informant: patient Onset/Context/Timing Onset: Today Timing: Continuous Quality: Positive for Sharp Location: Substernal (Xiphoid process) Current Severity: Mild Maximum Severity: Mild Worsened By: Movement of Torso Relieved By: Remaining Still Associated Symptoms: Negative for Nausea, Vomiting, Diaphoresis, Dyspnea, Cough, Fever, Lightheadedness, Acid Reflux or Palpitations Narrative Narrative: 78-year-old female with significant cardiac history of Mobitz type II, sick sinus syndrome, CHF, A- fib pacemaker and on Coumadin. States that she thought she may have broken a rib earlier this week she Radha been outpatient chest x-ray yesterday but had not had results yet. Today she was on phone with her daughter and got lower sternal chest discomfort. Worse with movement. Denies any fall or trauma. Denies any radiation to her left arm neck or jaw. No shortness of breath. No diaphoresis. No recent exertional chest pain or dyspnea. Her last heart cath was about 8 years ago in 2016. Prior Similar Symptoms: Yes Recent Illness/Hospitalization: No CVD Risk Factors: Negative for Smoking PE Risk Factors: Negative for Recent Travel/Surgery, Recent Immobilization, Prior DVT or PE, Cancer or OCP + Smoking + >/=35 TAD Risk Factors: Negative for Marfan's Syndrome [facility] Medical History Mobitz type 2 second degree atrioventricular block Sick sinus syndrome due to SA node dysfunction Chronic systolic (congestive) heart failure Paroxysmal atrial fibrillation Sinoatrial node dysfunction FH: sudden cardiac (SCD) Nonischemic cardiomyopathy Elevated troponin Acute calculous cholecystitis Home Medications ???Medication ???Instructions ???Recorded ???Last Taken ???Type calcium citrate 200 mg 1 tab PO DAILY 01/23/20 Unknown History calcium-vitamin D3 6.25 mcg (250 unit) tablet magnesium oxide 200 mg PO DAILY 01/23/20 Unknown History warfarin 2 mg tablet 2 mg PO .COMPLEX #90 tabs 11/04/22 Unknown Rx metoprolol succinate 50 mg See Rx Instructions .Route 06/03/23 Unknown Rx tablet,extended release 24 hr .COMPLEX #90 tabs ramipril 2.5 mg capsule 2.5 mg PO DAILY #90 caps 08/23/23 Unknown Rx warfarin 5 mg tablet 5 mg PO DAILY #90 TABLETS 08/23/23 Unknown Rx furosemide 20 mg tablet 20 mg PO DAILY #90 TABLETS 09/27/23 Unknown Rx Allergy/AdvReac Type Severity Reaction Status Date / Time No Known Allergies Allergy Verified 08/24/23 09:38 Family History Brother Sudden cardiac Brother Myocardial infarction, Onset Age: 40 Heart disease Sister Hypertension Surgical History History of left heart catheterization (05/27/16) Presence of permanent cardiac pacemaker (2008) Social History Smoking Status: Never smoker alcohol intake: never substance use type: does not use caffeine: Yes Type: coffee what type of physical activity do you participate in: bicycling frequency: daily duration: < 15 minutes/day seatbelt use: always do you feel safe at home: Yes ROS ROS ED ROS Narrative Denies recent illness. Denies exertional chest pain or exertional dyspnea. Constitutional Constitutional ED: Denies chills, fever(s) or subjective Eyes Eyes: Reports none ENT ENT ED: Denies ear pain Cardiovascular Cardiovascular: Reports as per HPI and chest pain; Denies palpitations or racing heartbeat Respiratory/Chest Respiratory/Chest: Denies cough, dyspnea or dyspnea on exertion Gastrointestinal Gastrointestinal: Denies abdominal pain, diarrhea, nausea or vomiting Genitourinary Genitourinary ED: Denies dysuria or hematuria Musculoskeletal Musculoskeletal: Denies arthralgias or back pain Integumentary Denies abscess or Abrasions Neurologic Neurologic: Denies headache(s) Psychiatric Psychiatric: Denies anxiety Endocrine Endocrinology: Denies cold intolerance Hematologic/Lymphatic Hematologic/Lymphatic: Denies easy bleeding, easy bruising or lymphadenopathy Allergic/Immunologic Allergic/Immunologic ED: Denies mouth swelling, tongue swelling or urticaria EXAM Physical Exam Narrative Exam Narrative: Send 8-year-old female no acute distress. Vital signs are stable. Pulse ox 98% on room air no signs hypoxia. H EENT exam unremarkable. Neck nontender. Lungs clear to auscultation bilaterally. (more content not included)... Normal [facility] L501.4020on 01-12-2024 TROPONIN-I HS 10 pg/mL Normal 3.0-54.0 [facility] Comment on above: Result Comment: Plea se Note: New Test Units and Gender Specific Reference Ranges. For more information see Policy Stat Procedure [place] High Sensitivity Troponin (TNIH) and attachments. Performed By: #### L 300.3900 #### [facility] [address] [place], [address] L501.5425on 01-12-2024 TROPONIN-I HS 8 pg/mL Normal 3.0-54.0 [facility] Comment on above: Order Comment: 1Y Result Comment: Plea se Note: New Test Units and Gender Specific Reference Ranges. For more information see Policy Stat Procedure [place] High Sensitivity Troponin (TNIH) and attachments. Performed By: #### L 300.3900 #### [facility] [address] [place], [address] Prothrombin Time w/INRon INR Coag (PPP) [Relative time] 2.7 {INR} Normal [facility] Comment on above: Performed By: #### L 300.3900 #### [facility] [address] [place], [address] PT Coag (PPP) [Time] 28.9 s High 11.7-14.[address] [facility] Comment on above: Performed By: #### L 300.3900 #### [facility] [address] [place], [address] Ribs Uni Min 3V w/PA Cheston 01-11-2024 Ribs Uni Min 3V w/PA Chest [facility] Imaging Services [address] [place], [place] [address] Ribs Uni Min 3V w/PA Chest MR#: [id number] Acct: [id number] Name: JC GROSS Rep #: [id number] : 1945 F 78 From: Lisandro Escobar PCP: Dr. Karissa Madrid DO Status: REG CLI Study: Ribs Uni Min 3V w/PA Chest Date of Exam: 01/10 Exam# [id number] Ordering Dr: Lynette Burton [id number] INDICATION: R/O FX AND DISPLACEMENT RIGHT EXAMINATION/TECHNIQUE: X-RAY - XR Ribs Unilateral W/ PA Chest Min 3 Views COMPARISON: Prior study dated: 08/24/2023 FINDINGS: SOFT TISSUES: No soft tissue swelling or gas. BONES: Fractures of the anterior aspect of the right eighth and ninth and possibly seventh ribs. The views however are suboptimal. No sclerotic or destructive changes observed. VISUALIZED LUNGS: Left-sided dual-chamber cardiac pacer device. No evidence of pneumothorax or pleural effusions. RAD/Ribs Uni Min 3V w/PA Chest IMPRESSION: Fractures of the right eighth and ninth ribs. Electronically Signed: Lisandro Barr MD at 15:15 EDT , CC: NILSA Burton; Dr. Karissa Madrid DO Cloud Services Architect: Signed Normal [facility] Prothrombin Time w/INRon INR Coag (PPP) [Relative time] 2.0 {INR} Normal [facility] Comment on above: Performed By: #### L 300.7514 #### [facility] [address] [place], [address] PT Coag (PPP) [Time] 22.3 s High 11.7-14.[address] [facility] Comment on above: Performed By: #### L 300.3900 #### [facility] [address] [place], [address] Prothrombin Time w/INRon INR Coag (PPP) [Relative time] 2.6 {INR} Normal [facility] Comment on above: Performed By: #### L 300.3900 #### [facility] [address] [place], [address] PT Coag (PPP) [Time] 27.3 s High 11.7-14.[address] [facility] Comment on above: Performed By: #### L 300.3900 #### [facility] [address] [place], [address] Prothrombin Time w/INRon INR Coag (PPP) [Relative time] 3.3 {INR} Normal [facility] Comment on above: Performed By: #### L 300.3900 #### [facility] [address] [place], [address] PT Coag (PPP) [Time] 32.9 s High 11.7-14.[address] [facility] Comment on above: Performed By: #### L 300.3900 #### [facility] [address] [place], [address] Capillary blood internationa l normalized ratio (INR)Ordered By: Anupam Zia on 09-13-2023 INR Coag (BldC) [Relative time] 1.2 [facility] Comment on above: Critical Value > 4.0 Whole blood prothrombin time Ordered By: [place] Zia on 09-13-2023 PT Coag (Bld) [Time] 13.3 s 11.7-14.[address] [facility] Basophil percentageOrdered B y: Anupam Lizarraga on 08-24-2023 Basophil percentage 25-50 SEEN /hpf 0-5 [facility] Chloride [Moles/Vol] 108 mmol/L 98-[address] [facility] Glucose [Mass/Vol] 107 mg/dL 74-106 [facility] Comment on above: Fasting Glucose resu lt from 100 to 125 mg/dL suggests IMPAIRED HOMEOSTASIS per A.D.A. criteria. Hemoglobin (Bld) [Mass/Vol] 10.4 g/dL 12.0-15.0 [facility] Potassium [Moles/Vol] 4.2 mmol/L 3.5-5.1 [facility] Sodium [Moles/Vol] 141 mmol/L 136-145 [facility] WBC (Bld) [#/Vol] 5.0 10*3/uL 4.4-11.0 [facility] Bilirubin Test strip Ql (U)O rdered By: Anupam Lizarraga on 08-24-2023 Bilirubin Ql (U) Negative Negative [facility] Blood manual differential co mment interpretation (narrative result)Ordered By: Anupam Lizarraga on 08-24-2023 Manual differential comment Nicolas (Bld) [Interp] SCANNED [facility] Comment on above: 1+ ANISOCYTOSIS Determination of erythrocyte mean corpuscular volume (MCV)Ordered By: Anupam Lizarraga on 08-24-2023 MCV (RBC) [Entitic vol] 98.2 fL 81-99 [facility] Erythrocyte distribution wid th ratioOrdered By: Anupam Lizarraga on 08-24-2023 Erythrocyte distribution width (RBC) [Ratio] 20.0 % 11.6-14.6 [facility] Erythrocyte distribution wid th standard deviationOrdered By: Anupam Lizarraga on 08-24-2023 Erythrocyte distribution width (RBC) [Entitic vol] 72.5 fL 35.1-43.9 [facility] Hematocrit Auto (Bld) [Volum e fraction]Ordered By: Anupam Lizarraga on 08-24-2023 Hematocrit (Bld) [Volume fraction] 33.4 % 37-47 [facility] Ketones Test strip Ql (U)Ord ered By: Anupam Lizarraga on 08-24-2023 Ketones Ql (U) Negative Negative [facility] - Chemistry and C hemistry - challengeOrdered By: Anupam Lizarraga on 08-24-2023 CO2 [Moles/Vol] 24.0 mmol/L 21.0-32.0 [facility] Urea nitrogen/Creatinine [Mass ratio] 21.4 mg/mg 10-20 [facility] - CoagulationOrde red By: Anupam Lizarraga on 08-24-2023 PT Coag (PPP) [Time] 30.1 s 11.7-14.[address] [facility] - Hematology and Cell countsOrdered By: Aunpam Lizarraga on 08-24-2023 MCH (RBC) [Entitic mass] 30.6 pg 27.0-32.0 [facility] MCHC (RBC) [Mass/Vol] 31.1 g/dL 32-36 [facility] Platelet mean volume (Bld) [Entitic vol] 10.1 fL 6.2-12.0 [facility] Platelets (Bld) [#/Vol] 233 10*3/uL 150-450 [facility] Mucus LM Ql (Urine sed)Order ed By: Anupam Lizarraga on 08-24-2023 Mucus Ql (Urine sed) 0 SEEN /hpf [facility] Nitrite Test strip Ql (U)Ord ered By: Anupam Lizarraga on 08-24-2023 Nitrite Ql (U) Negative Negative [facility] No Panel InformationOrdered By: Anupam Lizarraga on 08-24-2023 Estimated GFR (MDRD) Amer 58 mL/min >60 [facility] Comment on above: GFR Calc Estimated GFR (MDRD) Non-Af Amer 48 mL/min >60 [facility] Comment on above: Non- GFR Calc Urine RBC 0-5 SEEN /hpf 0-5 [facility] Protein Test strip Ql (U)Ord ered By: Anupam Lizarraga on 08-24-2023 Protein Ql (U) Negative Negative [facility] RBC Auto (Bld) [#/Vol]Ordere d By: Anupam Lizarraga on 08-24-2023 RBC (Bld) [#/Vol] 3.40 10*6/uL 4.2-5.4 [facility] Serum or plasma calcium darlene urement (mass/volume)Ordered By: Anupam Lizarraga on 08-24-2023 Calcium [Mass/Vol] 9.4 mg/dL 8.5-10.1 [facility] Serum or plasma creatinine m easurement (mass/volume)Ordered By: Anupam Lizarraga on 08-24-2023 Creatinine [Mass/Vol] 1.17 mg/dL 0.55-1.02 [facility] Comment on above: The validity of the calculated GFR & GFRAA in patients over 70 years has not been determined. Clinical correlation is essential. Serum or plasma urea nitroge n measurement (mass/volume)Ordered By: Anupam Lizarraga on 08-24-2023 Urea nitrogen [Mass/Vol] 25 mg/dL 7-18 [facility] Squamous epithelial cells de tection in urine sediment by light microscopyOrdered By: Anupam Lizarraga on 08-24-2023 Epithelial cells.squamous LM Ql (Urine sed) 0-5 SEEN /hpf 5-10 [facility] Thin prep Papanicolaou smear with manual screeningOrdered By: Anupam Lizarraga on 08-24-2023 Thin prep Papanicolaou smear with manual screening 9 5-15 [facility] Urine blood detectionOrdered By: Anupam Lizarraga on 08-24-2023 RBC Ql (U) 10 /ul Negative [facility] Urine clarityOrdered By: Sergio Lizarraga on 08-24-2023 Clarity (U) Sl. Cloudy Clear [facility] Urine color determinationOrd ered By: Anupam Lizarraga on 08-24-2023 Color (U) Yellow Yellow [facility] Urine glucose detectionOrder ed By: Anupam Lizarraga on 08-24-2023 Glucose Ql (U) Normal mg/dl Normal [facility] Urine leukocyte esterase det ection by dipstickOrdered By: Anupam Lizarraga on 08-24-2023 Leukocyte esterase Test strip Ql (U) 500 /ul Negative [facility] Urine pHOrdered By: Johanna on 08-24-2023 pH (U) 6.0 [pH] 5.0 - 8.0 [facility] Urine sediment bacteria coun t by microscopy (number/high power field)Ordered By: Anupam Lizarraga on 08-24-2023 Bacteria LM.HPF (Urine sed) [#/Area] 1 /[HPF] None Seen [facility] Urine specific gravity measu rementOrdered By: Anupam Lizarraga on 08-24-2023 Specific gravity (U) [Rel density] 1.015 1.002-1.03 0 [facility] Urine urobilinogen measureme ntOrdered By: Anupam Lizarraga on 08-24-2023 Urobilinogen Ql (U) Normal mg/dl Normal [facility] - CoagulationOrde red By: [place] Zia on 07-29-2023 INR Coag (Bld) [Relative time] 2.3 {INR} [facility] PT Coag (PPP) [Time] 24.9 s 11.7-14.[address] [facility] International normalized rat io (INR) calculationOrdered By: Anupam Lizarraga on 06-16-2023 INR Coag (PPP) [Relative time] 3.3 {INR} [facility] - CoagulationOrde red By: [place] Zia on 06-16-2023 PT Coag (PPP) [Time] 34.3 s 11.7-14.[address] [facility] INR in Blood by Coagulation assayOrdered By: Anupam Zia on 04-30-2023 INR Coag (Bld) [Relative time] 2.4 {INR} [facility] - CoagulationOrde red By: [place] Zia on 04-30-2023 PT Coag (PPP) [Time] 26.2 s 11.7-14.[address] [facility] INR in Blood by Coagulation assayOrdered By: Anupam Zia on 04-21-2023 INR Coag (Bld) [Relative time] 3.4 {INR} [facility] - CoagulationOrde red By: [place] Zia on 04-21-2023 PT Coag (PPP) [Time] 34.8 s 11.7-14.[address] [facility] INR in Blood by Coagulation assayOrdered By: Anupam Zia on 03-25-2023 INR Coag (Bld) [Relative time] 2.9 {INR} [facility] - CoagulationOrde red By: Anupam Lizarraga on 03-25-2023 PT Coag (PPP) [Time] 30.5 s 11.7-14.[address] [facility] INR in Blood by Coagulation assayOrdered By: Anupam Lizarraga on 02-22-2023 INR Coag (Bld) [Relative time] 2.4 {INR} [facility] - CoagulationOrde red By: Anupam Lizarraga on 02-22-2023 PT Coag (PPP) [Time] 26.8 s 11.7-14.[address] [facility] INR in Blood by Coagulation assayOrdered By: Anupam Lizarraga on 01-21-2023 INR Coag (Bld) [Relative time] 2.2 {INR} [facility] - CoagulationOrde red By: Anupam Lizarraga on 01-21-2023 PT Coag (PPP) [Time] 24.7 s 11.7-14.[address] [facility] INR in Blood by Coagulation assayOrdered By: Anupam Lizarraga on 12-18-2022 INR Coag (Bld) [Relative time] 2.7 {INR} [facility] - CoagulationOrde red By: Anupam Lizarraga on 12-18-2022 PT Coag (PPP) [Time] 29.0 s 11.7-14.[address] [facility] INR in Blood by Coagulation assayOrdered By: Anupam Lizarraga on 11-24-2022 INR Coag (Bld) [Relative time] 2.5 {INR} [facility] - CoagulationOrde red By: Anupam Lizarraga on 11-24-2022 PT Coag (PPP) [Time] 26.9 s 11.7-14.[address] [facility] INR in Blood by Coagulation assayOrdered By: Dr. Lizarraga on 10-22-2022 INR Coag (Bld) [Relative time] 2.5 {INR} [facility] - CoagulationOrde red By: Dr. Lizarraga on 10-22-2022 PT Coag (PPP) [Time] 27.5 s 11.7-14.[address] [facility] INR in Blood by Coagulation assayOrdered By: Dr. Lizarraga on 09-17-2022 INR Coag (Bld) [Relative time] 2.2 {INR} [facility] - CoagulationOrde red By: Dr. Lizarraga on 09-17-2022 PT Coag (PPP) [Time] 24.0 s 11.7-14.[address] [facility] Absolute lymphocyte countOrd ered By: Yoshi Swann on 09-04-2022 Lymphocytes Auto (Unsp spec) [#/Vol] 1.58 10*3/uL 0.83-4.51 [facility] Atypical perinuclear antineu trophil cytoplasmic antibodies measurementOrdered By: Yoshi Swann on 09-04-2022 Neutrophil cytoplasmic Ab.perinuclear.atypical IF (S) [Titer] <1:20 titer Neg:<1:20 [facility] Comment on above: The atypical pANCA p attern has been observed in asignificant percentage of patients with ulcerative colitis,primary sclerosing cholangitis and autoimmune hepatitis. Basophil percentageOrdered B y: Yoshi Swann on 09-04-2022 Amylase [Catalytic activity/Vol] 90 U/L 25-115 [facility] Basophil percentage < 0.2 AI 0.0-0.9 [facility] Basophils/100 WBC (Bld) 1.5 % 0-1 [facility] Bilirubin [Mass/Vol] 0.60 mg/dL 0.20-1.[address] [facility] Comment on above: For patients on eltr ombopag therapy, use of Dimension [place] TBIL is not recommended. Chloride [Moles/Vol] 108 mmol/L 98-[address] [facility] Eosinophils/100 WBC (Bld) 6.9 % 0-5 [facility] Glucose [Mass/Vol] 94 mg/dL 74-106 [facility] Neutrophils (Bld) [#/Vol] 2.3 10*3/uL 2.0-7.7 [facility] Neutrophils/100 WBC (Bld) 48.2 % 47-70 [facility] Potassium [Moles/Vol] 4.2 mmol/L 3.5-5.1 [facility] Protein [Mass/Vol] 7.1 g/dL 6.4-8.2 [facility] Sodium [Moles/Vol] 139 mmol/L 136-145 [facility] WBC (Bld) [#/Vol] 4.8 10*3/uL 4.4-11.0 [facility] Blood erythrocytes count (nu mber/volume)Ordered By: Yoshi Swann on 09-04-2022 RBC (Bld) [#/Vol] 3.11 10*6/uL 4.2-5.4 [facility] Blood hemoglobin measurement (mass/volume)Ordered By: Yoshi Swann on 09-04-2022 Hemoglobin (Bld) [Mass/Vol] 9.8 g/dL 12.0-15.0 [facility] Blood lymphocytes/100 leukoc ytesOrdered By: Yoshi Swann on 09-04-2022 Lymphocytes/100 WBC (Bld) 33.3 % 19-41 [facility] Blood manual differential co mment interpretation (narrative result)Ordered By: Yoshi Swann on 09-04-2022 Manual differential comment Nicolas (Bld) [Interp] SCANNED [facility] Comment on above: ANISOCYTOSIS Blood monocytes/100 leukocyt esOrdered By: Yoshi Swann on 09-04-2022 Monocytes/100 WBC (Bld) 9.9 % 0-10 [facility] Blood platelet mean volumeOr dered By: Yoshi Swann on 09-04-2022 Platelet mean volume (Bld) [Entitic vol] 10.7 fL 6.2-12.0 [facility] Determination of erythrocyte mean corpuscular volume (MCV)Ordered By: Yoshi Swann on 09-04-2022 MCV (RBC) [Entitic vol] 101.0 fL 81-99 [facility] Erythrocyte sedimentation ra teOrdered By: Yoshi Swann on 09-04-2022 ESR (Bld) [Velocity] 16 mm/h 0-[address] [facility] Hematocrit Auto (Bld) [Volum e fraction]Ordered By: Yoshi Swann on 09-04-2022 Hematocrit (Bld) [Volume fraction] 31.4 % 37-47 [facility] Hypochromatic red blood cell detectionOrdered By: Yoshi Swann on 09-04-2022 Hypochromia Ql (Bld) 1+ [facility] Interpretation of serum or p lasma protein pattern by immunofixation (narrative resultOrdered By: Yoshi Swann on 09-04-2022 Protein Fractions Immunofixation Nicolas [Interp] See comment [facility] Comment on above: Result: Not Observed Laboratory - Chemistry and C hemistry - challengeOrdered By: Yoshi Swann on 09-04-2022 ALP [Catalytic activity/Vol] 61 U/L 45-117 [facility] ALT [Catalytic activity/Vol] 11 U/L 13-56 [facility] CO2 [Moles/Vol] 28.0 mmol/L 21.0-32.0 [facility] Lipase [Catalytic activity/Vol] 258 U/L 73-393 [facility] Urea nitrogen/Creatinine [Mass ratio] 16.8 mg/mg 10-20 [facility] - Hematology and Cell countsOrdered By: Yoshi Swann on 09-04-2022 Anisocytosis Ql (Bld) 2+ [facility] Erythrocyte distribution width (RBC) [Entitic vol] 71.8 fL 35.1-43.9 [facility] Erythrocyte distribution width (RBC) [Ratio] 19.3 % 11.6-14.6 [facility] Immature granulocytes/100 WBC (Bld) 0.200 % 0.0-0.9 [facility] Comment on above: IG% - Immature Granu locytes (promyelocytes, myelocytes and metamyelocytes) > 1% indicates that a LEFT SHIFT is Present. MCH (RBC) [Entitic mass] 31.5 pg 27.0-32.0 [facility] Nucleated RBC/100 WBC (Bld) [Ratio] 0 % 0-5 [facility] MCHC Auto (RBC) [Mass/Vol]Or dered By: Yoshi Swann on 09-04-2022 MCHC (RBC) [Mass/Vol] 31.2 g/dL 32-36 [facility] No Panel InformationOrdered By: Yoshi Swann on 09-04-2022 Addendum Document Comment . [facility] Comment on above: Protein electrophore sis scan will follow via computer,mail, or mooner delivery. CA 19-9 Antigen 24 U/mL 0-35 [facility] Comment on above: [employer] El ectrochemiluminescence Immunoassay(ECLIA)Values obtained with different assay methods or kits cannotbe used interchangeably. Results cannot be interpreted asabsolute evidence of the presence or absence of malignantdisease. CA 19-9 Antigen Serial Monitoring Not Reportable [facility] Centromere B Antibody <0.2 AI 0.0-0.9 [facility] Endomysial IgA Antibody Negative Negative [facility] Estimated GFR (MDRD) Amer 69 mL/min >60 [facility] Comment on above: GFR Calc Estimated GFR (MDRD) Non-Af Amer 57 mL/min >60 [facility] Comment on above: Non- GFR Calc Hepatitis A IgM Antibody Negative Negative [facility] Hepatitis B Core IgM Antibody Negative Negative [facility] Hepatitis C Antibody (EIA) Non-Reactive Non Reactive [facility] Hepatitis C Antibody Comment Comment . [facility] Comment on above: Not infected with HC V unless early or acute infection issuspected (which may be delayed in an immunocompromisedindividual), or other evidence exists to indicate HCVinfection. Immunoglobulin E 74 IU/mL 6-495 [facility] Comment on above: Performed at: [employer] [address] [id number] Director: Shoaib Ellis PhD, Phone: [phone] at: [facility] [id number] Director: Viridiana Esquivel MD, Phone: [phone] Immunoglobulin G4 74 mg/dL 2-96 [facility] [employer] Antibody <0.2 AI 0.0-0.9 [facility] Ovalocyte detectionOrdered B y: Yoshi Friend on 09-04-2022 Ovalocytes LM Ql (Bld) 1+ [facility] Platelets bldOrdered By: Brayden castaneda Friend on 09-04-2022 Platelets (Bld) [#/Vol] 183 10*3/uL 150-450 [facility] Serum DNA double strand anti body assay (units/volume)Ordered By: Yoshi Friend on 09-04-2022 DNA double strand Ab Qn (S) 1 [IU]/mL 0-9 [facility] Comment on above: Negative <5 Equivoca l 5 - 9 Positive >9 Serum IgA measurement (units /volume)Ordered By: Yoshi Swann on 09-04-2022 IgA Qn (S) 407 mg/dL 64-422 [facility] Comment on above: Performed at: - [id number] [place], [place] [id number] Director: Shoaib Ellis PhD, Phone: [phone] Serum IgG subclass 1 measure ment (mass/volume)Ordered By: Yoshi Swann on 09-04-2022 IgG subclass 1 (S) [Mass/Vol] 581 mg/dL 248-810 [facility] Serum IgG subclass 2 measure ment (mass/volume)Ordered By: Yoshi Swann on 09-04-2022 IgG subclass 2 (S) [Mass/Vol] 269 mg/dL 130-555 [facility] Serum IgG subclass 3 measure ment (mass/volume)Ordered By: Yoshi Swann on 09-04-2022 IgG subclass 3 (S) [Mass/Vol] 167 mg/dL 15-102 [facility] Serum Nargis-1 antibody assay (u nits/volume)Ordered By: Yoshi Swann on 09-04-2022 Nargis-1 extractable nuclear Ab Qn (S) <0.2 AI 0.0-0.9 [facility] Serum Scl-70 extractable nuc lear antibody assay (units/volume)Ordered By: Yoshi Swann on 09-04-2022 SCL-70 extractable nuclear Ab Qn (S) <0.2 AI 0.0-0.9 [facility] Serum Mcfarlane extractable nucl ear antibody detectionOrdered By: Yoshi Swann on 09-04-2022 Mcfarlane extractable nuclear Ab Ql (S) <0.2 AI 0.0-0.9 [facility] Serum [id number] measu rement by electrophoresisOrdered By: Yoshi Swann on 09-04-2022 Alpha 1 globulin Elph [Mass/Vol] 0.3 g/dL 0.0-0.4 [facility] Alpha 1 globulin Elph [Mass/Vol] 0.5 g/dL 0.4-1.0 [facility] Serum classic neutrophil cyt oplasmic antibody assay (units/volume)Ordered By: Yoshi Swann on 09-04-2022 Neutrophil cytoplasmic Ab.classic Qn (S) <1:20 titer Neg:<1:20 [facility] Serum globulin measurement ( mass/volume)Ordered By: Yoshi Swann on 09-04-2022 Globulin (S) [Mass/Vol] 2.7 g/dL 2.2-3.9 [facility] Serum or plasma C reactive p rotein measurement (mass/volume)Ordered By: Yoshi Swann on 09-04-2022 CRP [Mass/Vol] mg/L 0.0-3.0 [facility] Comment on above: C-Reactive Protein ( CRP) provides useful information for thediagnosis, therapy and monitoring of inflammatory processesand associated diseases. For the evaluation of Relative Riskfor Cardiovascular Disease, a High Sensitivity CRP (HSCRP)should be ordered. Serum or plasma IgG measurem ent (mass/volume)Ordered By: Yoshi Swann on 09-04-2022 IgG [Mass/Vol] 1066 mg/dL 586-1602 [facility] IgG [Mass/Vol] Not Reportable [facility] Serum or plasma IgM measurem ent (mass/volume)Ordered By: Yoshi Swann on 09-04-2022 IgM [Mass/Vol] 117 mg/dL 26-217 [facility] Serum or plasma albumin darlene urement (mass/volume)Ordered By: Yoshi Swann on 09-04-2022 Albumin [Mass/Vol] 3.9 g/dL 2.9-4.4 [facility] Serum or plasma albumin/glob ulin mass ratioOrdered By: Yoshi Swann on 09-04-2022 Albumin/Globulin [Mass ratio] 1.2 {ratio} 0.9-2.4 [facility] Serum or plasma beta globuli n measurement by electrophoresis (mass/volume)Ordered By: Yoshi Swann on 09-04-2022 Beta globulin Elph [Mass/Vol] 0.9 g/dL 0.7-1.3 [facility] Serum or plasma calcium darlene urement (mass/volume)Ordered By: Yoshi Swann on 09-04-2022 Calcium [Mass/Vol] 9.1 mg/dL 8.5-10.1 [facility] Serum or plasma creatinine m easurement (mass/volume)Ordered By: Yoshi Swann on 09-04-2022 Creatinine [Mass/Vol] 1.01 mg/dL 0.55-1.02 [facility] Comment on above: The validity of the calculated GFR & GFRAA in patients over 70 years has not been determined. Clinical correlation is essential. Serum or plasma gamma globul in measurement by electrophoresis (mass/volume)Ordered By: Yoshi Swann on 09-04-2022 Gamma globulin Elph [Mass/Vol] 1.0 g/dL 0.4-1.8 [facility] Serum or plasma hepatitis B virus surface antigen detection by immunoassayOrdered By: Yoshi Swann on 09-04-2022 HBV surface Ag IA Ql Negative Negative [facility] Serum or plasma immunoelectr ophoresis interpretation (nominal result)Ordered By: Yoshi Swann on 09-04-2022 Interpretation IEP [Interp] Comment . [facility] Comment on above: No monoclonality det ected. Serum or plasma urea nitroge n measurement (mass/volume)Ordered By: Yoshi Swann on 09-04-2022 Urea nitrogen [Mass/Vol] 17 mg/dL 7-18 [facility] Serum perinuclear neutrophil cytoplasmic antibody titer by immunofluorescenceOrdered By: Yoshi Swann on 09-04-2022 Neutrophil cytoplasmic Ab.perinuclear IF (S) [Titer] <1:20 titer Neg:<1:20 [facility] Comment on above: The presence of posi tive fluorescence exhibiting P-ANCA orC-ANCA patterns alone is not specific for the diagnosis ofWegener's Granulomatosis (WG) or microscopic polyangiitis.Decisions about treatment should not be based solely onANCA IFA results. The [employer] ANCA [employer] Consensusrecommends follow up testing of positive sera with both DC-3 and MPO-ANCA enzyme immunoassays. As many as 5% serumsamples are positive only by EIA. Ref. AM J Clin [id number];111:507-513. Serum tissue transglutaminas e IgA antibody assay (units/volume)Ordered By: Yoshi Swann on 09-04-2022 tTG IgA Qn (S) <2 U/mL 0-3 [facility] Comment on above: Negative 0 - 3 Weak Positive 4 - 10 Positive >10 Tissue Transglutaminase (tTG) has been identified as the endomysial antigen. Studies have demonstr- ated that endomysial IgA antibodies have over 99% specificity for gluten sensitive enteropathy. Thin prep Papanicolaou smear with manual screeningOrdered By: Yoshi Swann on 09-04-2022 Thin prep Papanicolaou smear with manual screening 20 U/L 15-37 [facility] Thin prep Papanicolaou smear with manual screening 3 5-15 [facility] Thin prep Papanicolaou smear with manual screening 1.5 0.7-1.7 [facility] Total protein bloodOrdered B y: Yoshi Swann on 09-04-2022 Protein [Mass/Vol] 6.6 g/dL 6.0-8.5 [facility] INR in Blood by Coagulation assayOrdered By: Dr. Lizarraga on 08-20-2022 INR Coag (Bld) [Relative time] 2.7 {INR} [facility] - CoagulationOrde red By: Dr. Lizarraga on 08-20-2022 PT Coag (PPP) [Time] 28.4 s 11.7-14.[address] [facility] INR in Blood by Coagulation assayOrdered By: Dr. Lizarraga on 07-13-2022 INR Coag (Bld) [Relative time] 2.7 {INR} [facility] - CoagulationOrde red By: Dr. Lizarraga on 07-13-2022 PT Coag (PPP) [Time] 28.2 s 11.7-14.[address] [facility] Basophil percentageOrdered B y: Dr. Lizarraga on 05-29-2022 Amylase [Catalytic activity/Vol] 101 U/L 25-115 [facility] Bilirubin [Mass/Vol] 0.50 mg/dL 0.20-1.[address] [facility] Comment on above: For patients on eltr ombopag therapy, use of Dim[place] TBIL is not recommended. Chloride [Moles/Vol] 107 mmol/L 98-[address] [facility] Glucose [Mass/Vol] 87 mg/dL 74-106 [facility] Potassium [Moles/Vol] 3.9 mmol/L 3.5-5.1 [facility] Protein [Mass/Vol] 6.9 g/dL 6.4-8.2 [facility] Sodium [Moles/Vol] 140 mmol/L 136-145 [facility] WBC (Bld) [#/Vol] 5.0 10*3/uL 4.4-11.0 [facility] Blood erythrocytes count (nu mber/volume)Ordered By: Dr. Lizarraga on 05-29-2022 RBC (Bld) [#/Vol] 3.27 10*6/uL 4.2-5.4 [facility] Blood hemoglobin measurement (mass/volume)Ordered By: Dr. Lizarraga on 05-29-2022 Hemoglobin (Bld) [Mass/Vol] 10.5 g/dL 12.0-15.0 [facility] Blood manual differential co mment interpretation (narrative result)Ordered By: Dr. Lizarraga on 05-29-2022 Manual differential comment Nicolas (Bld) [Interp] SCANNED [facility] Comment on above: 1+ ANISOCYTOSIS Blood platelet mean volumeOr dered By: Dr. Lizarraga on 05-29-2022 Platelet mean volume (Bld) [Entitic vol] 10.2 fL 6.2-12.0 [facility] Determination of erythrocyte mean corpuscular volume (MCV)Ordered By: Dr. Lizarraga on 05-29-2022 MCV (RBC) [Entitic vol] 102.1 fL 81-99 [facility] Hematocrit Auto (Bld) [Volum e fraction]Ordered By: Dr. Lizarraga on 05-29-2022 Hematocrit (Bld) [Volume fraction] 33.4 % 37-47 [facility] INR in Blood by Coagulation assayOrdered By: Dr. Lizarraga on 05-29-2022 INR Coag (Bld) [Relative time] 2.8 {INR} [facility] Laboratory - Chemistry and C hemistry - challengeOrdered By: Dr. Lizarraga on 05-29-2022 ALP [Catalytic activity/Vol] 63 U/L 45-117 [facility] ALT [Catalytic activity/Vol] 18 U/L 13-56 [facility] CO2 [Moles/Vol] 29.0 mmol/L 21.0-32.0 [facility] Globulin (S) [Mass/Vol] 3.4 g/dL 2.2-4.2 [facility] Lipase [Catalytic activity/Vol] 208 U/L 73-393 [facility] Urea nitrogen/Creatinine [Mass ratio] 17.9 mg/mg 10-20 [facility] - CoagulationOrde red By: Dr. Lizarraga on 05-29-2022 PT Coag (PPP) [Time] 29.2 s 11.7-14.[address] [facility] Laboratory - Hematology and Cell countsOrdered By: Dr. Lizarraga on 05-29-2022 Erythrocyte distribution width (RBC) [Entitic vol] 68.2 fL 35.1-43.9 [facility] Erythrocyte distribution width (RBC) [Ratio] 18.6 % 11.6-14.6 [facility] MCH (RBC) [Entitic mass] 32.1 pg 27.0-32.0 [facility] MCHC Auto (RBC) [Mass/Vol]Or dered By: Dr. Lizarraga on 05-29-2022 MCHC (RBC) [Mass/Vol] 31.4 g/dL 32-36 [facility] No Panel InformationOrdered By: Dr. Lizarraga on 05-29-2022 CA 19-9 Antigen 35 U/mL 0-35 [facility] Comment on above: [employer] El ectrochemiluminescence Immunoassay(ECLIA)Values obtained with different assay methods or kits cannotbe used interchangeably. Results cannot be interpreted asabsolute evidence of the presence or absence of malignantdisease. Estimated GFR (MDRD) Amer 61 mL/min >60 [facility] Comment on above: GFR Calc Estimated GFR (MDRD) Non-Af Amer 50 mL/min >60 [facility] Comment on above: Non- GFR Calc Platelets bldOrdered By: Dr. Lizarraga on 05-29-2022 Platelets (Bld) [#/Vol] 205 10*3/uL 150-450 [facility] Serum Helicobacter pylori Ig G antibody assay (units/volume)Ordered By: Dr. Lizarraga on 05-29-2022 H. pylori IgG Qn (S) 0.12 0.00-0.[address] [facility] Comment on above: Result Units: Index Value Negative <0.80 Equivocal 0.80 - 0.89 Positive >0.89Performed at: [facility] [id number] Director: Shoaib Ellis PhD, Phone: [phone] Serum or plasma albumin darlene urement (mass/volume)Ordered By: Dr. Lizarraga on 05-29-2022 Albumin [Mass/Vol] 3.5 g/dL 3.2-5.0 [facility] Serum or plasma albumin/glob ulin mass ratioOrdered By: Dr. Lizarraga on 05-29-2022 Albumin/Globulin [Mass ratio] 1.0 {ratio} 0.9-2.4 [facility] Serum or plasma calcium darlene urement (mass/volume)Ordered By: Dr. Lizarraga on 05-29-2022 Calcium [Mass/Vol] 8.7 mg/dL 8.5-10.1 [facility] Serum or plasma creatinine m easurement (mass/volume)Ordered By: Dr. Lizarraga on 05-29-2022 Creatinine [Mass/Vol] 1.12 mg/dL 0.55-1.02 [facility] Comment on above: The validity of the calculated GFR & GFRAA in patients over 70 years has not been determined. Clinical correlation is essential. Serum or plasma urea nitroge n measurement (mass/volume)Ordered By: Dr. Lizarraga on 05-29-2022 Urea nitrogen [Mass/Vol] 20 mg/dL 7-18 [facility] Thin prep Papanicolaou smear with manual screeningOrdered By: Dr. Lizarraga on 05-29-2022 Thin prep Papanicolaou smear with manual screening 19 U/L 15-37 [facility] Thin prep Papanicolaou smear with manual screening 4 5-[address] [facility] [address] ABDOMEN/PELVIS W/CONTRAST on 05-28-2022 CT ABDOMEN/PELVIS W/CONTRAST ORIGINAL EXAMINATION: CT OF THE ABDOMEN AND PELVIS WITH CONTRAST 05/27/2022 12:19 pm TECHNIQUE: CT of the abdomen and pelvis was performed with the administration of intravenous contrast. Multiplanar reformatted images are provided for review. Automated exposure control, iterative reconstruction, and/or weight based adjustment of the mA/kV was utilized to reduce the radiation dose to as low as reasonably achievable. COMPARISON: None. HISTORY: ORDERING SYSTEM PROVIDED HISTORY: Reason for Exam: Right upper and mid abdominal pain for 6 months, history of gallbladder drainage tube in 2017, never had cholecystectomy FINDINGS: Within the visualized lung bases, there is mild bibasilar atelectasis. No pleural effusion heart is normal in size without pericardial effusion. Liver is normal in size, contour and attenuation. There is a subcentimeter inferior right hepatic lobe hypodensity which is too small to characterize but likely represents a small cyst or hemangioma. Gallbladder is contracted limiting evaluation. There is severe dilatation of the common bile duct measuring up to 15 mm. There is mild intrahepatic biliary dilatation. There is mild upper abdominal inflammatory change and fluid along the pancreatic tail and along the pancreatic head/duodenum tracking inferiorly along the pericolic gutters. There is mild pancreatic ductal dilatation measuring up to 4 mm at the pancreatic head. No discrete pancreatic lesion is identified. Spleen and adrenal glands are unremarkable. There is mild right renal scarring. No hydronephrosis or renal calculi. Ureters are normal in course and caliber. Bladder is well distended without wall thickening or focal mass. Uterus is unremarkable. No adnexal masses. Esophagus and stomach are unremarkable. There is a duodenum diverticulum. No evidence of small or large bowel obstruction. Appendix is unremarkable. No evidence of pneumoperitoneum. Aorta is normal in caliber with mild aortoiliac atherosclerotic calcifications. No pathologically enlarged abdominal or pelvic lymph nodes. Tiny fat containing umbilical hernia. No aggressive osseous abnormalities. There is a left proximal femur intramedullary amol and nail. There are age-indeterminate compression deformities involving the T10, T12, L1, L2 and L3 vertebral bodies, greatest at T12. Moderate multilevel degenerative changes throughout the visualized spine IMPRESSION: Mild inflammatory change and small amount of fluid along the pancreatic tail and pancreatic head/duodenum tracking into the pericolic gutters suggests mild acute interstitial edematous pancreatitis. Recommend correlation with pancreatic enzymes. Severe extrahepatic dilatation measuring up to 15 mm and mild intrahepatic biliary dilatation. Mild pancreatic ductal dilatation without discrete pancreatic lesion. Recommend correlation with alkaline phosphatase and consider MRCP/ERCP.. Multiple age-indeterminate compression deformities throughout the visualized thoracic and lumbar spine as described above. I have personally reviewed the images of this examination and agree with the resident's findings and interpretation. Interpreted by: Tiana Doyle MD Preliminary Report By: Justin Sanchez Electronically signed By Tiana Doyle MD Dictated Date: 05/28/2022 9:04:30 AM Prelim Date: 05/28/2022 10:40:17 AM Sign Date: 05/28/2022 10:40:17 AM Ordering Provider: LOU BURTON [facility] ([place]) .GFRon 05-27-2022 GFR 65 ml/min/1.73sqm [facility] [place] Comment on above: Result Comment: GFR Population mean for , Non- Americans Ages 20-29 = 116 mL/min/1.73 sq.m. Ages 30-39 = 107 mL/min/1.73 sq.m. Ages 40-49 = 99 mL/min/1.73 sq.m. Ages 50-59 = 93 mL/min/1.73 sq.m. Ages 60-69 = 85 mL/min/1.73 sq.m. Ages 70+ = 75 mL/min/1.73 sq.m. Chronic Kidney Disease: Less than 60 mL/min/1.73 square meters End Stage Renal Disease: Less than 15 mL/min/1.73 square meters Performed By: #### G , CRE #### [facility] [address] [address] GFR Non- 53 ml/min/1.73sqm [facility] ([place]) Comment on above: Result Comment: GFR Population mean for , Non- Americans Ages 20-29 = 116 mL/min/1.73 sq.m. Ages 30-39 = 107 mL/min/1.73 sq.m. Ages 40-49 = 99 mL/min/1.73 sq.m. Ages 50-59 = 93 mL/min/1.73 sq.m. Ages 60-69 = 85 mL/min/1.73 sq.m. Ages 70+ = 75 mL/min/1.73 sq.m. Chronic Kidney Disease: Less than 60 mL/min/1.73 square meters End Stage Renal Disease: Less than 15 mL/min/1.73 square meters Performed By: #### G FR, CRE #### Jade [address] [address] CREon 05-27-2022 Creatinine [Mass/Vol] 1.01 mg/dL Normal 0.55-1.02 [facility] ([place]) Comment on above: Performed By: #### G , CRE #### Jade [address] [address] LABORATORYOrdered By: SYSTEM SYSTEM on 05-27-2022 Creatinine [Mass/Vol] 1.01 mg/dL Invalid Interpretation Code 0.55 - 1.02 mg/dL AO ADM SS GFR 65 ml/min/1.73sqm Invalid Interpretation Code AO Chemistry S GFR Non- 53 ml/min/1.73sqm Inval id Interpretation Code AO Chemistry S INR in Blood by Coagulation assayon 05-15-2022 INR Coag (Bld) [Relative time] 3.2 {INR} [facility] Work Phone: Laboratory - Coagulationon 1 07-16-2021 PT Coag (PPP) [Time] 32.1 s 11.7-14.[address] [facility] [facility] Work Phone: Basophil percentageon 2021 WBC (Bld) [#/Vol] 5.1 10*3/uL 4.4-11.0 [facility] Work Phone: Blood erythrocytes count (nu mber/volume)on 04-30-2022 RBC (Bld) [#/Vol] 3.49 10*6/uL 4.2-5.4 [facility] Work Phone: Blood hemoglobin measurement (mass/volume)on 04-30-2022 Hemoglobin (Bld) [Mass/Vol] 10.9 g/dL 12.0-15.0 [facility] Work Phone: Blood manual differential co mment interpretation (narrative result)on 04-30-2022 Manual differential comment Nicolas (Bld) [Interp] See comment [facility] Work Phone: Comment on above: RARE ANISOCYTOSIS Blood platelet mean volumeon 04-30-2022 Platelet mean volume (Bld) [Entitic vol] 10.7 fL 6.2-12.0 [facility] Work Phone: Determination of erythrocyte mean corpuscular volume (MCV)on 04-30-2022 MCV (RBC) [Entitic vol] 101.7 fL 81-99 [facility] Work Phone: Hematocrit Auto (Bld) [Volum e fraction]on 04-30-2022 Hematocrit (Bld) [Volume fraction] 35.5 % 37-47 [facility] Work Phone: Laboratory - Hematology and Cell countson 04-30-2022 Erythrocyte distribution width (RBC) [Entitic vol] 67.7 fL 35.1-43.9 [facility] Work Phone: Erythrocyte distribution width (RBC) [Ratio] 18.6 % 11.6-14.6 [facility] Work Phone: MCH (RBC) [Entitic mass] 31.2 pg 27.0-32.0 [facility] Work Phone: MCHC Auto (RBC) [Mass/Vol]on 04-30-2022 MCHC (RBC) [Mass/Vol] 30.7 g/dL 32-36 [facility] Work Phone: Platelets bldon 04-30-2022 Platelets (Bld) [#/Vol] 238 10*3/uL 150-450 [facility] Work Phone: INR in Blood by Coagulation assayOrdered By: Dr. Lizarraga on 04-15-2022 INR Coag (Bld) [Relative time] 2.9 {INR} [facility] Laboratory - CoagulationOrde red By: Dr. Lizarraga on 04-15-2022 PT Coag (PPP) [Time] 30.2 s 11.7-14.[address] [facility] INR in Blood by Coagulation assayon 03-05-2022 INR Coag (Bld) [Relative time] 2.8 {INR} [facility] Work Phone: Laboratory - Coagulationon 1 PT Coag (PPP) [Time] 29.1 s 11.7-14.[address] [facility] Work Phone: INR in Blood by Coagulation assayon 02-04-2022 INR Coag (Bld) [Relative time] 2.4 {INR} [facility] Work Phone: Laboratory - Coagulationon 0 02-04-2022 PT Coag (PPP) [Time] 25.9 s 11.7-14.[address] [facility] Work Phone: INR in Blood by Coagulation assayon 01-05-2022 INR Coag (Bld) [Relative time] 2.8 {INR} [facility] Work [phone] Laboratory - Coagulationon 0 01-05-2022 PT Coag (PPP) [Time] 29.5 s 11.7-14.[address] [facility] Work Phone: INR in Blood by Coagulation assayon 12-05-2021 INR Coag (Bld) [Relative time] 2.5 {INR} [facility] Work Phone: Laboratory - Coagulationon 0 12-05-2021 PT Coag (PPP) [Time] 27.0 s 11.7-14.[address] [facility] Work Phone: INR in Blood by Coagulation assayon 11-17-2021 INR Coag (Bld) [Relative time] 3.1 {INR} [facility] Work Phone: Laboratory - Coagulationon 0 11-17-2021 PT Coag (PPP) [Time] 31.4 s 11.7-14.[address] [facility] Work Phone: Absolute lymphocyte counton 10-21-2021 Lymphocytes Auto (Unsp spec) [#/Vol] 1.08 10*3/uL 0.83-4.51 [facility] Work Phone: Basophil percentageon 2021 Basophils/100 WBC (Bld) 1.5 % 0-1 [facility] Work Phone: Chloride [Moles/Vol] 107 mmol/L 98-[address] [facility] Work Phone: Eosinophils/100 WBC (Bld) 4.5 % 0-5 [facility] Work Phone: Glucose [Mass/Vol] 91 mg/dL 74-106 [facility] Work Phone: Neutrophils (Bld) [#/Vol] 2.2 10*3/uL 2.0-7.7 [facility] Work Phone: Neutrophils/100 WBC (Bld) 55.8 % 47-70 [facility] Work Phone: Potassium [Moles/Vol] 4.6 mmol/L 3.5-5.1 [facility] Work Phone: Sodium [Moles/Vol] 136 mmol/L 136-145 [facility] Work Phone: WBC (Bld) [#/Vol] 4.0 10*3/uL 4.4-11.0 [facility] Work Phone: [phone] Blood erythrocytes count (nu mber/volume)on 10-21-2021 RBC (Bld) [#/Vol] 3.48 10*6/uL 4.2-5.4 [facility]: Blood hemoglobin measurement (mass/volume)on 10-21-2021 Hemoglobin (Bld) [Mass/Vol] 11.0 g/dL 12.0-15.0 [facility] Work Phone: Blood lymphocytes/100 leukoc yteson 10-21-2021 Lymphocytes/100 WBC (Bld) 27.1 % 19-41 [facility] Work Phone: Blood monocytes/100 leukocyt eson 10-21-2021 Monocytes/100 WBC (Bld) 10.8 % 0-10 [facility] Work Phone: Blood platelet mean volumeon 10-21-2021 Platelet mean volume (Bld) [Entitic vol] 10.1 fL 6.2-12.0 [facility] Work Phone: Determination of erythrocyte mean corpuscular volume (MCV)on 10-21-2021 MCV (RBC) [Entitic vol] 101.7 fL 81-99 [facility] Work Phone: Hematocrit Auto (Bld) [Volum e fraction]on 10-21-2021 Hematocrit (Bld) [Volume fraction] 35.4 % 37-47 [facility] Work Phone: INR in Blood by Coagulation assayon 10-21-2021 INR Coag (Bld) [Relative time] 2.7 {INR} [facility] Work Phone: Laboratory - Chemistry and C hemistry - challengeon 10-21-2021 CO2 [Moles/Vol] 24.0 mmol/L 21.0-32.0 [facility] Work Phone: Urea nitrogen/Creatinine [Mass ratio] 21.0 mg/mg 10-20 [facility] Work Phone: Laboratory - Coagulationon 0 10-21-2021 PT Coag (PPP) [Time] 28.6 s 11.7-14.[address] [facility] Work Phone: Laboratory - Hematology and Cell countson 10-21-2021 Anisocytosis Ql (Bld) 1+ [facility] Work Phone: Erythrocyte distribution width (RBC) [Entitic vol] 68.8 fL 35.1-43.9 [facility] Work Phone: Erythrocyte distribution width (RBC) [Ratio] 18.6 % 11.6-14.6 [facility] Work Phone: Immature granulocytes/100 WBC (Bld) 0.300 % 0.0-0.9 [facility] Work Phone: Comment on above: IG% - Immature Granu locytes (promyelocytes, myelocytes and metamyelocytes) > 1% indicates that a LEFT SHIFT is Present. MCH (RBC) [Entitic mass] 31.6 pg 27.0-32.0 [facility] Work Phone: Nucleated RBC/100 WBC (Bld) [Ratio] 0 % 0-5 [facility] Work Phone: MCHC Auto (RBC) [Mass/Vol]on 10-21-2021 MCHC (RBC) [Mass/Vol] 31.1 g/dL 32-36 [facility] Work Phone: No Panel Informationon 10-21 Estimated GFR (MDRD) Amer 66 mL/min >60 [facility] Work Phone: Comment on above: GFR Calc Estimated GFR (MDRD) Non-Af Amer 54 mL/min >60 [facility] Work Phone: Comment on above: Non- GFR Calc Platelets bldon 10-21-2021 Platelets (Bld) [#/Vol] 211 10*3/uL 150-450 [facility] Work Phone: Serum or plasma calcium darlene urement (mass/volume)on 10-21-2021 Calcium [Mass/Vol] 9.3 mg/dL 8.5-10.1 [facility] Work Phone: Serum or plasma creatinine m easurement (mass/volume)on 10-21-2021 Creatinine [Mass/Vol] 1.05 mg/dL 0.55-1.02 [facility] Work Phone: Comment on above: The validity of the calculated GFR & GFRAA in patients over 70 years has not been determined. Clinical correlation is essential. Serum or plasma urea nitroge n measurement (mass/volume)on 10-21-2021 Urea nitrogen [Mass/Vol] 22 mg/dL 7-18 [facility] Work Phone: Thin prep Papanicolaou smear with manual screeningon 10-21-2021 Thin prep Papanicolaou smear with manual screening 5 5-15 [facility] Work Phone: INR in Blood by Coagulation assayon 09-25-2021 INR Coag (Bld) [Relative time] 2.7 {INR} [facility] Work Phone: Laboratory - Coagulationon 0 09-25-2021 PT Coag (PPP) [Time] 28.6 s 11.7-14.[address] [facility] Work Phone: INR in Blood by Coagulation assayon 08-28-2021 INR Coag (Bld) [Relative time] 2.7 {INR} [facility] Work Phone: Laboratory - Coagulationon 0 08-28-2021 PT Coag (PPP) [Time] 27.9 s 11.7-14.[address] [facility] Work Phone: INR in Blood by Coagulation assayon 07-01-2021 INR Coag (Bld) [Relative time] 3.0 {INR} [facility] Work Phone: Laboratory - Coagulationon 0 07-01-2021 PT Coag (PPP) [Time] 29.9 s 11.7-14.[address] [facility] Work Phone: INR in Blood by Coagulation assayon 06-03-2021 INR Coag (Bld) [Relative time] 2.7 {INR} [facility] Work Phone: Laboratory - Coagulationon 0 06-03-2021 PT Coag (PPP) [Time] 27.4 s 11.7-14.[address] [facility] Work Phone: INR in Blood by Coagulation assayon 05-21-2021 INR Coag (Bld) [Relative time] 3.2 {INR} [facility] Work Phone: Laboratory - Coagulationon 1 07-22-2020 PT Coag (PPP) [Time] 31.8 s 11.7-14.[address] [facility] Work Phone: CT LUMBAR SPINE WO IVCONon 0 07-24-2019 CT LUMBAR SPINE WO IVCON * * *Final Repo rt* * * DATE OF EXAM: Jul 24 2019 2:23PM [facility] 0508 - CT LUMBAR SPINE WO IVCON / PROCEDURE REASON: Compression fracture T12, L1, L2 * * * * Physician Interpretation * * * * COMPARISON: None. HISTORY: Compression fracture of T12 - L1 - L2. TECHNIQUE: CT lumbar spine without contrast. MQ: [id number] Dose-Length Product (DLP): 1017 mGy*cm. CT Dose Reduction Employed: Automated exposure control(AEC) and iterative recon. RESULT: CT LUMBAR SPINE: Decreased bone density indicating osteopenia with multiple compression deformities without associated soft tissue or hematoma compatible with osteopenic fractures. No retropulsed bone fragment compromising central canal. Fractures are as follows: T12 vertebral body with 50% height decrease. L1 with 5% height decrease. L2 with 40% height decrease. L3 with 60% anterior and 10% posterior height decrease. Of these fractures, T12 fracture shows increased density with a linear lucency along the superior endplate compatible with an acute to subacute fracture. Remaining fractures are mainly chronic in nature. Decreased disc height with posterior bulges and osteophyte, facet and ligamentum flavum hypertrophy indicating disc degeneration and spondylosis. Related to fractures there is mild kyphoscoliosis identified. No additional fracture, dislocation or subluxation is identified. Grade 1 degenerative retrolisthesis of L2 on L3 and L3 on L4 vertebral body. Normal remaining anteroposterior alignment, vertebral body height, central canal, thecal sac, spinal cord caliber and cauda equina region. No fracture/dislocation. Normal surrounding soft tissues. T9 -- 10: Left eccentric disease. Patent central canal. Patent bilateral neural foramina. T10 -- 11: Patent central canal. Patent bilateral neural foramina. T11 -- 12: Patent central canal. Patent bilateral neural foramina. T12 -- L1: Patent central canal. Patent bilateral neural foramina. L1 -- 2: Patent central canal. Patent bilateral neural foramina. L2 -- 3: Spondylosis. Patent central canal. Bilateral foramen encroachment without narrowing. L3 -- 4: Spondylosis. Moderate central canal stenosis. Foramina encroachment without narrowing. L4 -- 5: Spondylosis. Moderate central canal stenosis. Mild bilateral foramina narrowing. L5 -- S1: Patent central canal. Patent bilateral neural foramina. IMPRESSION: 1. Acute to subacute T12 vertebral 50% compression deformity. 2. Additional L1-L2-L3 old fractures as detailed. 3. Lumbar spondylosis with L3-4 and L4-5 spondylotic canal stenosis. 4. Multilevel foraminal encroachment without significant narrowing. 5. No associated soft tissue mass or hematoma with fractures is identified. COUNTING REFERENCE: Inferior most lumbar disc is taken as L5-S1. Structural anomalies: None. Cloud Services Architect: AMY Transcribe Date/Time: Jul 24 2019 2:30P Dictated by : AFSANEH APARICIO MD This examination was interpreted and the report reviewed and electronically signed by: AFSANEH APARICIO MD on Jul 24 2019 2:37PM EST [id number] Normal [facility] PROGRESSon 07-24-2019 PROGRESS HNO ID: [id number] Author: Lety Lemus (Tech) Service: ? Author Type: Creative Services Coordinator Type: Progress Notes Filed: 07/24/2019 2:38 PM Note Text: Radiology Service Progress Note PATIENT NAME: Jc Gross DATE OF SERVICE: July 24, 2019 TIME: 2:38 PM PATIENT IDENTITY VERIFICATION COMPLETED USING TWO (2) IDENTIFIERS: Name and Date of confirmed by patient verbally. PATIENT GENDER DATA: Female. status: : No status: NO. PATIENT RELEVANT IMPLANT DATA REVIEWED: Not Applicable RADIOLOGY DEPARTMENT: CT; Exam(s) Completed: Spine PERIPHERAL IV DATA: Not applicable SIGNED BY: Lety Beltran July 24, 2019 2:38 PM Normal [facility] Lab Report: Prothrombin Time w/INRon 07-28-2017 Coagulation tissue factor induced in platelet poor plasma 28.9 s High 11.7-14.9 [employer] Work Phone: [phone] INR in blood by coagulation 2.7 {INR} Invalid Interpretation Code [employer] Work Phone: [phone] Lab Report: Prothrombin Time w/INRon 07-14-2017 Coagulation tissue factor induced in platelet poor plasma 21.2 s High 11.7-14.9 [facility] Work Phone: [phone] INR in blood by coagulation 1.9 {INR} Invalid Interpretation Code [employer] Work Phone: [phone] Lab Report: Prothrombin Time w/INRon 06-11-2017 Coagulation tissue factor induced in platelet poor plasma 26.7 s High 11.7-14.9 [facility] Work Phone: [phone] INR in blood by coagulation 2.6 {INR} Invalid Interpretation Code [employer] [employer] Work Phone: [phone] Lab Report: CBC W/Diff, Auto matedon 05-04-2017 Absolute Neut 2.3 X10 3/UL Invalid Interpretation Code 2.0-7.7 [employer] Work Phone: [phone] Basophils/100 WBC Auto (Bld) 0.2 % Invalid Interpretation Code 0-1 [employer] Work Phone: [phone] Eosinophils/100 leukocytes 3.4 % Invalid Interpretation Code 0-5 [facility] Work Phone: [phone] Erythrocyte distribution width Auto Ratio (RBC) 18.0 % High 11.6-14.6 [facility] Work Phone: [phone] Erythrocytes (RBC) 3.46 10*6/uL Low 4.2-5.4 [employer] [facility] Work Phone: [phone] Hematocrit (HCT) 34.1 % Low 37-47 [employer] Work Phone: [phone] Hemoglobin mass conc (Bld) 10.5 g/dL Low 12.0-15.0 [employer] Work Phone: [phone] immature granulocytes, percentage of total cells, blood 0.000 % Invalid Interpretation Code 0.0-0.9 [employer] Work Phone: [phone] Immature granulocytes/100 WBC (Bld) 0.000 % Invalid Interpretation Code 0.0-0.9 [employer] Work Phone: [phone] Lymphocytes 1.85 X10 3/UL Invalid Interpretation Code 0.83-4.51 [employer] Work Phone: [phone] Lymphocytes/100 leukocytes 39.6 % Invalid Interpretation Code 19-41 [employer] Work Phone: [phone] MCH 30.3 pg Invalid Interpretation Code 27.0-32.0 [employer] Work Phone: [phone] MCHC mass conc (RBC) 30.8 G/GL Low 32-36 [employer] Work Phone: [phone] MCV 98.6 fL Invalid Interpretation Code 81-99 [employer] Work Phone: [phone] Monocytes/100 leukocytes 8.4 % Invalid Interpretation Code 0-10 [employer] Work Phone: [phone] neutrophil count, blood 2.3 X10 3/UL Invalid Interpretation Code 2.0-7.7 [facility] Work Phone: [phone] Neutrophils/100 WBC Auto (Bld) 48.4 % Invalid Interpretation Code 47-70 [facility] Work Phone: [phone] Platelets 211 10*3/mm3 Invalid Interpretation Code 150-450 [facility] Work Phone: [phone] PMV by [employer] 10.3 fL Invalid Interpretation Code 6.2-12.0 [facility] Work Phone: [phone] RDW SD 64.0 fL High 35.1-43.9 [facility] Work Phone: [phone] red blood cell distribution width, size density 64.0 fL High 35.1-43.9 [facility] Work Phone: [phone] WBC (Leukocytes) 4.7 10*3/uL Invalid Interpretation Code 4.4-11.0 [facility] Work Phone: [phone] Lab Report: Comprehensive [facility] 05-04-2017 Alanine aminotransferase (ALT) 8 U/L Low 12-78 [facility] Work Phone: [phone] Albumin 4.0 g/dL Invalid Interpretation Code 3.4-5.0 [facility] Work Phone: [phone] Albumin/Globulin Ratio 1.1 {ratio} Invalid Interpretation Code 0.9-2.4 [facility] Work Phone: [phone] Alkaline phosphatase (ALP) 70 U/L Invalid Interpretation Code 45-117 [facility] Work Phone: [phone] Anion gap 6 mmol/L Invalid Interpretation Code 5-15 [facility] Work Phone: [phone] Aspartate aminotransferase (AST) 18 U/L Invalid Interpretation Code 15-37 [facility] Work Phone: [phone] Bilirubin (total) 0.50 mg/dL Invalid Interpretation Code 0.20-1.00 [facility] Work Phone: [phone] BUN/Creatinine Ratio 24.1 RATIO High 10-[address] [facility] Work Phone: [phone] Calcium 8.9 mg/dL Invalid Interpretation Code 8.5-10.1 [employer] Work Phone: [phone] Chloride 109 mmol/L High 98-107 [employer] Work Phone: [phone] CO2 24.0 mmol/L Invalid Interpretation Code 21.0-32.0 [employer] Work Phone: [phone] Creatinine 0.87 mg/dL Invalid Interpretation Code 0.55-1.02 [employer] Work Phone: [phone] eGFR (non-black) 68 mL/min/{1.73_m2} Invalid Interpretation Code >60 [employer] Work Phone: [phone] eGFR (non-black) 82 mL/min/{1.73_m2} Invalid Interpretation Code >60 [employer] Work Phone: [phone] Globulin 3.5 g/dL Invalid Interpretation Code 2.2-4.2 [employer] Work Phone: [phone] Glucose 91 mg/dL Invalid Interpretation Code 70-110 [employer] Work Phone: [phone] Glucose mass conc 91 mg/dL Invalid Interpretation Code 70-110 [employer] Work Phone: [phone] Potassium molar conc 4.4 mmol/L Invalid Interpretation Code 3.5-5.1 [employer] Work Phone: [phone] Protein 7.5 g/dL Invalid Interpretation Code 6.4-8.2 [employer] Work Phone: [phone] Sodium 139 mmol/L Invalid Interpretation Code 136-145 [employer] Work Phone: [phone] Urea nitrogen 21 mg/dL High 7-18 [employer] Work Phone: [phone] Lab Report: Lipid Profileon 05-04-2017 Cholesterol 196 mg/dL Invalid Interpretation Code 200 [employer] Work Phone: [phone] HDL Cholesterol 83 mg/dL Invalid Interpretation Code [employer] Work Phone: [phone] LDL Cholesterol 103 mg/dL Invalid Interpretation Code 0-130 [employer] Work Phone: [phone] Triglyceride 52 mg/dL Invalid Interpretation Code [employer] Work Phone: [phone] very low density lipoproteins 10 mg/dL Invalid Interpretation Code 5-40 [facility] Work Phone: [phone] Lab Report: Prothrombin Time w/INRon 05-04-2017 INR Coag RelTime (PPP) 2.2 {INR} Invalid Interpretation Code [facility] Work Phone: [phone] Prothrombin time (PT) Coag time (PPP) 23.8 s High 11.7-14.9 [facility] Work Phone: [phone] Coumadin Management: [employer] 03-26-2017 INR Coag RelTime (Bld) Hospital lab Invalid Interpretation Code [facility] Work Phone: [phone] INR Coag RelTime (Bld) 2 to 3 Invalid Interpretation Code [facility] Work Phone: [phone] INR Coag RelTime (PPP) 2.3 {INR} Invalid Interpretation Code [facility] Work Phone: [phone] Prothrombin time (PT) Coag time (PPP) 24.2 s Invalid Interpretation Code [facility] Work Phone: [phone] Lab Report: Prothrombin Time w/INRon 03-26-2017 Prothrombin time (PT) Coag time (PPP) 24.2 s High 11.7-14.9 [facility] Work Phone: [phone] Coumadin Management: [employer] 02-19-2017 Coagulation tissue factor induced in platelet poor plasma 31.2 s Invalid Interpretation Code [facility] Work Phone: [phone] INR in blood by coagulation Hospital lab Invalid Interpretation Code [facility] Work Phone: [phone] INR in blood by coagulation 3.2 {INR} Invalid Interpretation Code [facility] Work Phone: [phone] INR in blood by coagulation 2 to 3 Invalid Interpretation Code [facility] Work Phone: [phone] Replaced Document: Prothromb in Time w/INRon 02-19-2017 Coagulation tissue factor induced in platelet poor plasma 31.4 s High 11.7-14.9 [facility] Work Phone: [phone] Coumadin Management: [employer] 02-10-2017 Coagulation tissue factor induced in platelet poor plasma 18.9 s Invalid Interpretation Code [facility] Work Phone: [phone] INR in blood by coagulation Hospital lab Invalid Interpretation Code [facility] Work Phone: [phone] INR in blood by coagulation 1.7 {INR} Invalid Interpretation Code [facility] Work Phone: [phone] INR in blood by coagulation 2 to 3 Invalid Interpretation Code [facility] Work Phone: [phone] Lab Report: Prothrombin Time w/INRon 02-10-2017 Coagulation tissue factor induced in platelet poor plasma 18.9 s High 11.7-14.9 [facility] Work Phone: [phone] Coumadin Management: [employer] 01-08-2017 Coagulation tissue factor induced in platelet poor plasma 25.0 s Invalid Interpretation Code [facility] Work Phone: [phone] INR Coag RelTime (PPP) 2.4 {INR} [facility] Work Phone: [phone] INR in blood by coagulation Hospital lab Invalid Interpretation Code [facility] Work Phone: [phone] INR in blood by coagulation 2.4 {INR} Invalid Interpretation Code [facility] Work Phone: [phone] INR in blood by coagulation 2 to 3 Invalid Interpretation Code [facility] Work Phone: [phone] international normalized ratio (INR) range 2 to 3 [facility] Work Phone: [phone] Lab Report: Prothrombin Time w/INRon 01-08-2017 Coagulation tissue factor induced in platelet poor plasma 25 s High 11.7-14.9 [facility] Work Phone: Office Visiton 01-08-2017 Documentation of current medications (procedure) Done Invalid Interpretation Code [facility] Work Phone: [phone] Protein mass conc Done [facility] Work Phone: [phone] Coumadin Management: [employer] 12-07-2016 Coagulation tissue factor induced in platelet poor plasma 22.0 s Invalid Interpretation Code [facility] Work Phone: [phone] INR Coag RelTime (PPP) 2.0 {INR} [facility] Work Phone: [phone] INR in blood by coagulation Hospital lab Invalid Interpretation Code [facility] Work Phone: [phone] INR in blood by coagulation 2.0 {INR} Invalid Interpretation Code [facility] Work Phone: [phone] INR in blood by coagulation 2 to 3 Invalid Interpretation Code [facility] Work Phone: [phone] international normalized ratio (INR) range 2 to 3 [facility] Work Phone: [phone] Lab Report: Prothrombin Time w/INRon 12-07-2016 Coagulation tissue factor induced in platelet poor plasma 22 s High 11.7-14.9 [facility] Work Phone: [phone] Coumadin Management: [employer] 11-25-2016 INR in blood by coagulation Hospital lab Invalid Interpretation Code [facility] Work Phone: [phone] INR in blood by coagulation 2.5 {INR} Invalid Interpretation Code [facility] Work Phone: [phone] INR in blood by coagulation 2 to 3 Invalid Interpretation Code [facility] Work Phone: [phone] Lab Report: Prothrombin Time w/INRon 11-25-2016 Coagulation tissue factor induced in platelet poor plasma 25.7 s Invalid Interpretation Code [facility] Work Phone: [phone] Lab Report: Prothrombin Time w/INRon 11-12-2016 INR Coag RelTime (PPP) 2.0 {INR} [facility] Work Phone: [phone] Prothrombin time (PT) Coag time (PPP) 21.5 s High 11.7-14.9 [facility] Work Phone: [phone] Coumadin Management: [employer] 11-02-2016 Coagulation tissue factor induced in platelet poor plasma 16.5 s [facility] Work Phone: [phone] INR in blood by coagulation Hospital lab [facility] Work Phone: [phone] INR in blood by coagulation 1.4 {INR} Invalid Interpretation Code [facility] Work Phone: [phone] INR in blood by coagulation 2 to 3 Invalid Interpretation Code [facility] Work Phone: [phone] international normalized ratio (INR) range 2 to 3 [facility] Work Phone: [phone] Lab Report: Prothrombin Time w/INRon 11-02-2016 Coagulation tissue factor induced in platelet poor plasma 16.5 s High 11.7-14.9 [facility] Work Phone: [phone] Office Visit: [facility] 09-03-19 17 Documentation of current medications (procedure) Done Invalid Interpretation Code [facility] Work Phone: [phone] Fall risk assessment No Invalid Interpretation Code [facility] Work Phone: [phone] Protein mass conc Done [facility] Work Phone: [phone] Clinical Lists Update: 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7 [facility] Work Phone: [phone] Absolute Neutrophil count 2.1 X10 3/UL Invalid Interpretation Code 2.0-7.7 [facility] Work Phone: [phone] Basophils/100 leukocytes 1.1 % High 0-1 [facility] Work Phone: [phone] Basophils/100 WBC (Bld) 1.1 % High 0-1 [facility] Work Phone: [phone] Eosinophils/100 leukocytes 5.3 % High 0-5 [facility] Work Phone: [phone] Eosinophils/100 WBC (Bld) 5.3 % High 0-5 [facility] Work Phone: [phone] Erythrocyte distribution width Ratio (RBC) 58.0 fL High 35.1-43.9 [facility] Work Phone: [phone] Erythrocyte distribution width Ratio (RBC) 16.7 % High 11.6-14.6 [facility] Work Phone: [phone] Erythrocytes (RBC) 3.72 10*6/uL Low 4.2-5.[address] [facility] Work Phone: [phone] Hematocrit (HCT) 37.1 % Invalid Interpretation Code 37-47 [facility] Work Phone: [phone] Hematocrit Volume Fraction (Bld) 37.1 % 37-47 [facility] Work Phone: [phone] Hemoglobin (HGB) 11.7 g/dL Low 12.0-15.0 [facility] Work Phone: [phone] Immature granulocytes #/vol (Bld) 0.000 % 0.0-0.9 [facility] Work Phone: [phone] immature granulocytes, percentage of total cells, blood 0.000 % Invalid Interpretation Code 0.0-0.9 [facility] Work Phone: [phone] Immature granulocytes/100 WBC (Bld) 0.000 % Invalid Interpretation Code 0.0-0.9 [facility] Work Phone: [phone] Lymphocytes 1.54 X10 3/UL Invalid Interpretation Code 0.83-4.51 [facility] Work Phone: [phone] Lymphocytes #/vol (Bld) 1.54 X10 3/UL 0.83-4.51 [facility] Work Phone: [phone] Lymphocytes/100 leukocytes 35.2 % Invalid Interpretation Code 19-41 [facility] Work Phone: [phone] Lymphocytes/100 WBC (Bld) 35.2 % 19-41 [facility] Work Phone: [phone] MCH 31.5 pg Invalid Interpretation Code 27.0-32.0 [facility] Work Phone: [phone] MCH Entitic mass (RBC) 31.5 pg 27.0-32.0 [facility] Work Phone: [phone] MCHC 31.5 G/GL Low 32-36 [facility] Work Phone: MCHC mass conc (RBC) 31.5 G/GL Low 32-[address] [facility] Work Phone: [phone] MCV 99.7 fL High 81-99 [facility] Work Phone: MCV Entitic volume (RBC) 99.7 fL High 81-99 [facility] Work Phone: Monocytes/100 leukocytes 10.0 % Invalid Interpretation Code 0-10 [facility] Work Phone: Monocytes/100 WBC (Bld) 10.0 % 0-10 [facility] Work Phone: [phone] Neutrophils/100 leukocytes 48.4 % Invalid Interpretation Code 47-70 [facility] Work Phone: [phone] Neutrophils/100 WBC (Bld) 48.4 % 47-70 [facility] Work Phone: [phone] Platelet mean volume Entitic volume (Bld) 10.2 fL 6.2-12.0 [facility] Work Phone: [phone] Platelets 265 10*3/mm3 Invalid Interpretation Code 150-450 [facility] Work Phone: Platelets #/vol (Bld) 265 10*3/mm3 150-450 [facility] Work Phone: [phone] PMV by Julio 10.2 fL Invalid Interpretation Code 6.2-12.0 [facility] Work Phone: RBC #/vol (Bld) 3.72 10*6/uL Low 4.2-5.4 [facility] Work Phone: RDW SD 58.0 fL High 35.1-43.9 [facility] Work Phone: RDW-CA 16.7 % High 11.6-14.6 [facility] Work Phone: [phone] red blood cell distribution width, size density 58.0 fL High 35.1-43.9 [facility] Work Phone: WBC #/vol (Bld) 4.4 10*3/uL 4.4-11.0 [facility] Work Phone: [phone] WBC (Leukocytes) 4.4 10*3/uL Invalid Interpretation Code 4.4-11.0 [facility] Phone: [phone] Office Visit: [facility] 11-27-19 15 General cardiovascular disease 10Y risk [#] ShawnSamson 8 % Invalid Interpretation Code [employer] [facility] Phone: [phone] Office Visit: [facility] 08-23-19 15 Tobacco smoking status NHIS Never Invalid Interpretation Code [employer] Work Phone: [phone] Office Visiton 04-25-2014 cardiac risk group B Invalid Interpretation Code [employer] [facility] Phone: [phone] Replaced Document: Anthony Phillips CG Observationson 04-25-2014 BUN (urea nitrogen) Sinus Rhythm -With r ate variation cv = 12.-Left bundle branch block and left axis. ABNORMAL Invalid Interpretation Code [employer] Phone: [phone] EKG QRS axis -47 deg Invalid Interpretation Code [employer] Phone: [phone] GE use only - for [employer] import when terms are not otherwise specified 456 ms Invalid Interpretation Code [facility] Phone: [phone] Interpretation Sinus Rhythm -With r ate variation cv = 12.-Left bundle branch block and left axis. ABNORMAL [employer] Work Phone: [phone] P [place] 56 deg Invalid Interpretation Code [employer] [facility] Phone: [phone] P wave axis, electrocardiogram 56 deg Invalid Interpretation Code [employer] Phone: [phone] DC Interval 160 ms Invalid Interpretation Code [employer] [facility] Phone: [phone] DC interval, electrocardiogram 160 ms Invalid Interpretation Code [employer] [facility] Phone: [phone] Pulse (Heart Rate) 65 /min Invalid Interpretation Code [employer] [facility] Phone: [phone] QRS axis, electrocardiogram -47 deg Invalid Interpretation Code [employer] [facility] Phone: [phone] QRS Duration 148 ms Invalid Interpretation Code [employer] [facility] Phone: [phone] QRS duration, electrocardiogram 148 ms Invalid Interpretation Code [employer] Work Phone: [phone] QT Interval new path ms Invalid Interpretation Code [facility] Work Phone: [phone] QT interval, electrocardiogram new path ms Invalid Interpretation Code [facility] Work Phone: [phone] QTc Otto 456 ms Invalid Interpretation Code [facility] Work Phone: [phone] T [place] -1 deg Invalid Interpretation Code [facility] Work Phone: [phone] T wave axis, electrocardiogram -1 deg Invalid Interpretation Code [facility] Work Phone: [phone] Clinical Lists Update: Prelo sumo wrestler 03-14-2014 Albumin 4.1 g/dL Invalid Interpretation Code [facility] Work Phone: [phone] Albumin/Globulin Ratio 1.6 {ratio} Invalid Interpretation Code [facility] Work Phone: [phone] Anion gap 3 mmol/L Low [facility] Work Phone: [phone] Anion gap molar conc 3 mmol/L Low [facility] Work Phone: [phone] BUN/Creatinine Ratio 11.4 mg/mg Invalid Interpretation Code [facility] Work Phone: [phone] Calcium 9.5 mg/dL Invalid Interpretation Code [facility] Work Phone: [phone] Chloride 108 mmol/L High [facility] Work Phone: [phone] Cholesterol 201 mg/dL High [facility] Work Phone: [phone] CO2 30.0 mmol/L Invalid Interpretation Code [facility] Work Phone: [phone] CO2 ppres (BldV) 30.0 mmol/L [facility] Work Phone: [phone] Creatinine 0.7 mg/dL Invalid Interpretation Code [facility] Work Phone: [phone] eGFR (non-black) 108 mL/min/{1.73_m2} Invalid Interpretation Code [facility] Work Phone: [phone] eGFR (non-black) 89 mL/min/{1.73_m2} Invalid Interpretation Code [facility] Work Phone: [phone] Globulin 2.5 g/dL Invalid Interpretation Code [facility] Work Phone: [phone] Globulin mass conc (S) 2.5 g/dL [facility] Work Phone: [phone] Glomerular Filtration Rate 108 mL/min/1.73m2 [facility] Work Phone: [phone] Glucose 81 mg/dL Invalid Interpretation Code [facility] Work Phone: [phone] Glucose mass conc 81 mg/dL Invalid Interpretation Code [facility] Work Phone: [phone] HDL Cholesterol 74 mg/dL Invalid Interpretation Code [facility] Work Phone: [phone] LDL Cholesterol 116 mg/dL Invalid Interpretation Code [facility] Work Phone: [phone] Potassium 4.4 mmol/L Invalid Interpretation Code [facility] Work Phone: [phone] Protein 6.6 g/dL Invalid Interpretation Code [facility] Work Phone: [phone] Sodium 141 mmol/L Invalid Interpretation Code [facility] Work Phone: [phone] Triglyceride 55 mg/dL Invalid Interpretation Code [facility] Work Phone: [phone] Urea nitrogen 8 mg/dL Invalid Interpretation Code [facility] Work Phone: [phone] very low density lipoproteins 11 mg/dL Invalid Interpretation Code [facility] Work Phone: [phone] Vital Signs Date Time Vital Sign Value Performing Clinician Tosha albert 10-26-2024 13:23-0400 Diastolic blood pressure 59 mm[Hg] Dr. Michaela Mcfadden DO Work Phone: [facility] 10-26-2024 13:23-0400 Heart rate 79 /min Dr. Michaela Mcfadden DO Work Phone: [facility] 10-26-2024 13:23-0400 Respiratory rate 16 /min Dr. Michaela Mcfadden DO Work Phone: [facility] 10-26-2024 13:23-0400 Systolic blood pressure 114 mm[Hg] Dr. Michaela Mcfadden DO Work Phone: [facility] 10-05-2024 13:01-0400 Body temperature 97.6 [degF] Dr. Michaela Mcfadden DO Work Phone: [facility] 09-27-2024 20:51-0400 Body mass index (BMI) [Ratio] 23.6 kg/m2 Dr. Michaela Mcfadden DO Work Phone: [facility] 09-14-2024 13:18-0400 Body temperature 96.7 [degF] Dr. Michaela Mcfadden DO Work Phone: [facility] 09-14-2024 13:18-0400 Diastolic blood pressure 59 mm[Hg] Dr. Michaela Mcfadden DO Work Phone: [facility] 09-14-2024 13:18-0400 Heart rate 77 /min Dr. Michaela Mcfadden DO Work Phone: [facility] 09-14-2024 13:18-0400 Respiratory rate 18 /min Dr. Michaela Mcfadden DO Work Phone: [facility] 09-14-2024 13:18-0400 Systolic blood pressure 137 mm[Hg] Dr. Michaela Mcfadden DO Work Phone: [facility] 08-30-2024 07:35-0400 Body mass index (BMI) [Ratio] 24 kg/m2 Dr. Michaela Mcfadden DO Work Phone: [facility] 08-30-2024 07:35-0400 Body weight 63.[address] Michaela Mcfadden DO Work Phone: [facility] 08-30-2024 07:35-0400 Diastolic blood pressure 60 mm[Hg] Dr. Michaela Mcfadden DO Work Phone: [facility] 08-30-2024 07:35-0400 Heart rate 66 /min Dr. Michaela Mcfadden DO Work Phone: [facility] 08-30-2024 07:35-0400 Respiratory rate 18 /min Dr. Michaela Mcfadden DO Work Phone: [facility] 08-30-2024 07:35-0400 SaO2% (BldA) [Mass fraction] 98 % Dr. Michaela Mcfadden DO Work Phone: [facility] 08-30-2024 07:35-0400 Systolic blood pressure 110 mm[Hg] Dr. Michaela Mcfadden DO Work Phone: [facility] 08-28-2024 22:00-0400 Body mass index (BMI) [Ratio] 23.6 kg/m2 Dr. Michaela Mcfadden DO Work Phone: [facility] 08-17-2024 13:03-0400 Body temperature 97.1 [degF] Lynette Micheal [employer] Work Phone: [facility] 08-17-2024 13:03-0400 Diastolic blood pressure 56 mm[Hg] Lynette Micheal [employer] Work Phone: [facility] 08-17-2024 13:03-0400 Heart rate 74 /min Lynette Micheal [employer] Work Phone: [facility] 08-17-2024 13:03-0400 Respiratory rate 14 /min Lynette Micheal [employer] Work Phone: [facility] 08-17-2024 13:03-0400 Systolic blood pressure 117 mm[Hg] Lynette Michela [employer] Work Phone: [facility] 07-29-2024 03:57-0500 Body mass index (BMI) [Ratio] 23.6 kg/m2 Lynette Micheal [employer] Work Phone: [facility] 07-27-2024 13:26-0500 Body temperature 97 [degF] Lynette Micheal [employer] Work Phone: [facility] 07-27-2024 13:26-0500 Diastolic blood pressure 75 mm[Hg] Lynette Micheal [employer] Work Phone: [facility] 07-27-2024 13:26-0500 Heart rate 69 /min Lynette Micheal [employer] Work Phone: [facility] 07-27-2024 13:26-0500 Respiratory rate 18 /min Lynette Micheal [employer] Work Phone: [facility] 07-27-2024 13:26-0500 Systolic blood pressure 115 mm[Hg] Lynette Micheal [employer] Work Phone: [facility] 07-01-2024 01:26-0500 Body mass index (BMI) [Ratio] 23.6 kg/m2 Lynette Micheal [employer] Work Phone: [facility] 06-22-2024 13:10-0500 Body temperature 96.8 [degF] Lynette Micheal [employer] Work Phone: [facility] 06-22-2024 13:10-0500 Diastolic blood pressure 49 mm[Hg] Lynette Micheal [employer] Work Phone: [facility] 06-22-2024 13:10-0500 Heart rate 74 /min Lynette Micheal [employer] Work Phone: [facility] 06-22-2024 13:10-0500 Respiratory rate 18 /min Lynette Mciheal [employer] Work Phone: [facility] 06-22-2024 13:10-0500 Systolic blood pressure 130 mm[Hg] Lynette Micheal [employer] Work Phone: [facility] 05-31-2024 04:18-0500 Body mass index (BMI) [Ratio] 23.6 kg/m2 Lynette Micheal [employer] Work Phone: [facility] 05-18-2024 13:32-0500 Body temperature 97 [degF] Lynette Micheal [employer] Work Phone: [facility] 05-18-2024 13:32-0500 Diastolic blood pressure 51 mm[Hg] Lynette Micheal [employer] Work Phone: [facility] 05-18-2024 13:32-0500 Heart rate 72 /min Lynette Burton [employer] Work Phone: [facility] 05-18-2024 13:32-0500 Respiratory rate 18 /min Lynette Burton [employer] Work Phone: [facility] 05-18-2024 13:32-0500 Systolic blood pressure 111 mm[Hg] Lynette Burton [employer] Work Phone: [facility] 04-29-2024 23:14-0500 Body mass index (BMI) [Ratio] 23.6 kg/m2 Lynette Burton [employer] Work Phone: [facility] 09-13-2023 11:03-0400 Body height 162.[address] Karissa Madrid Work Phone: [facility] 09-13-2023 11:03-0400 Body weight 60.[address] Karissa Madrid Work Phone: [facility] 09-10-2023 08:49-0400 Body mass index (BMI) [Ratio] 23 kg/m2 Dr. Karissa Madrid Work Phone: [facility] 08-24-2023 09:26-0400 Body height 162.[address] Karissa Madrid Work Phone: [facility] 08-24-2023 09:26-0400 Body mass index (BMI) [Ratio] 23 kg/m2 Dr. Karissa Madrid Work Phone: [facility] 08-24-2023 09:26-0400 Body weight 60.[address] Karissa Madrid Work Phone: [facility] 08-24-2023 09:26-0400 Respiratory rate 16 /min Dr. Karissa Madrid Work Phone: [facility] 06-30-2023 21:58-0500 Body mass index (BMI) [Ratio] 23.6 kg/m2 Dr. Karissa Madrid Work Phone: [facility] 05-30-2023 20:38-0500 Body mass index (BMI) [Ratio] 23.6 kg/m2 Dr. Karissa Madrid Work Phone: [facility] 04-30-2023 03:30-0500 Body mass index (BMI) [Ratio] 23.6 kg/m2 Dr. Karissa Madrid Work Phone: [facility] 03-30-2023 23:18-0400 Body mass index (BMI) [Ratio] 23.6 kg/m2 Dr. Karissa Madrid Work Phone: [facility] 02-28-2023 02:03-0400 Body mass index (BMI) [Ratio] 23.6 kg/m2 Dr. Karissa Madrid Work Phone: [facility] 01-28-2023 22:35-0400 Body mass index (BMI) [Ratio] 23.6 kg/m2 Dr. Karissa Madrid Work Phone: [facility] 12-29-2022 00:31-0400 Body mass index (BMI) [Ratio] 23.6 kg/m2 Dr. Karissa Madrid Work Phone: [facility] 11-27-2022 21:58-0400 Body mass index (BMI) [Ratio] 23.6 kg/m2 Dr. Karissa Madrid Work Phone: [facility] 11-24-2022 10:01-0400 Body weight 60.[address] Karissa Madrid Work Phone: [facility] 11-24-2022 10:01-0400 Diastolic blood pressure 79 mm[Hg] Dr. Karissa Madrid Work Phone: [facility] 11-24-2022 10:01-0400 Heart rate 63 /min Dr. Karissa Madrid Work Phone: [facility] 11-24-2022 10:01-0400 Respiratory rate 22 /min Dr. Karissa Madrid Work Phone: [facility] 11-24-2022 10:01-0400 Systolic blood pressure 134 mm[Hg] Dr. Karissa Madrid Work Phone: [facility] 11-24-2022 09:04-0400 Body height 162.[address] Karissa Madrid Work Phone: [facility] 11-13-2022 07:55-0400 Body mass index (BMI) [Ratio] 23.9 kg/m2 Dr. Karissa Madrid Work Phone: [facility] 11-13-2022 07:55-0400 Body temperature 97.4 [degF] Dr. Karissa Madrid Work Phone: [facility] 11-13-2022 07:55-0400 Body weight 63.[address] Karissa Madrid Work Phone: [facility] 11-13-2022 07:55-0400 Diastolic blood pressure 79 mm[Hg] Dr. Karissa Madrid Work Phone: [facility] 11-13-2022 07:55-0400 Heart rate 63 /min Dr. Karissa Madrid Work Phone: [facility] 11-13-2022 07:55-0400 Respiratory rate 18 /min Dr. Karissa Madrid Work Phone: [facility] 11-13-2022 07:55-0400 SaO2% (BldA) [Mass fraction] 95 % Dr. Karissa Madrid Work Phone: [facility] 11-13-2022 07:55-0400 Systolic blood pressure 152 mm[Hg] Dr. Karissa Madrid Work Phone: [facility] 10-29-2022 08:44-0400 Body mass index (BMI) [Ratio] 23.6 kg/m2 Dr. Karissa Madrid Work Phone: [facility] 09-27-2022 01:13-0400 Body mass index (BMI) [Ratio] 23.6 kg/m2 Dr. Karissa Madrid Work Phone: [facility] 08-29-2022 00:08-0400 Body mass index (BMI) [Ratio] 23.6 kg/m2 Dr. Karissa Madrid Work Phone: [facility] 07-28-2022 20:01-0500 Body mass index (BMI) [Ratio] 23.6 kg/m2 Dr. Karissa Madrid Work Phone: [facility] 05-31-2022 02:03-0500 Body mass index (BMI) [Ratio] 23.6 kg/m2 Dr. Michaela Mcfadden Work Phone: [facility] 04-30-2022 08:44-0500 Body height 162.[address] Michaela Mcfadden Work Phone: [facility] 04-30-2022 08:42-0500 Body mass index (BMI) [Ratio] 23.5 kg/m2 Dr. Michaela Mcfadden Work Phone: [facility] 04-30-2022 08:42-0500 Body weight 62.[address] Michaela Mcfadden Work Phone: [facility] 04-30-2022 08:42-0500 Diastolic blood pressure 71 mm[Hg] Dr. Michaela Mcfadden Work Phone: [facility] 04-30-2022 08:42-0500 Heart rate 60 /min Dr. Michaela Mcfadden Work Phone: [facility] 04-30-2022 08:42-0500 Respiratory rate 18 /min Dr. Michaela Mcfadden Work Phone: [facility] 04-30-2022 08:42-0500 SaO2% (BldA) [Mass fraction] 95 % Dr. Michaela Mcfadden Work Phone: [facility] 04-30-2022 08:42-0500 Systolic blood pressure 128 mm[Hg] Dr. Michaela Mcfadden Work Phone: [facility] 04-29-2022 23:02-0500 Body mass index (BMI) [Ratio] 23.6 kg/m2 Dr. Michaela Mcfadden Work Phone: [facility] 03-31-2022 09:49-0400 Body mass index (BMI) [Ratio] 23.6 kg/m2 [facility] 02-27-2022 21:19-0400 Body mass index (BMI) [Ratio] 23.6 kg/m2 [facility] Work Phone: 01-28-2022 22:52-0400 Body mass index (BMI) [Ratio] 23.6 kg/m2 [facility] Work Phone: 12-28-2021 02:14-0400 Body mass index (BMI) [Ratio] 23.6 kg/m2 [facility] Work Phone: 11-28-2021 06:54-0400 Body mass index (BMI) [Ratio] 23.6 kg/m2 Dr. Michaela Mcfadden Work Phone: [facility] Work Phone: 10-28-2021 20:37-0400 Body mass index (BMI) [Ratio] 23.6 kg/m2 Dr. Michaela Mcfadden Work Phone: [facility] Work Phone: 10-21-2021 08:47-0400 Body height 162.[address] Michaela Mcfadden Work Phone: [facility] Work Phone: 10-21-2021 08:47-0400 Body mass index (BMI) [Ratio] 23.3 kg/m2 Dr. Michaela Mcfadden Work Phone: [facility] Work Phone: 10-21-2021 08:47-0400 Body weight 61.[address] Michaela Mcfadden Work Phone: [facility] Work Phone: 10-21-2021 08:47-0400 Diastolic blood pressure 63 mm[Hg] Dr. Michaela Mcfadden Work Phone: [facility] Work Phone: 10-21-2021 08:47-0400 Heart rate 60 /min Dr. Michaela Mcfadden Work Phone: [facility] Work Phone: 10-21-2021 08:47-0400 Respiratory rate 18 /min Dr. Michaela Mcfadden Work Phone: [facility] Work Phone: 10-21-2021 08:47-0400 SaO2% (BldA) [Mass fraction] 99 % Dr. Michaela Mcfadden Work Phone: [facility] Work Phone: 10-21-2021 08:47-0400 Systolic blood pressure 130 mm[Hg] Dr. Michaela Mcfadden Work Phone: [facility] Work Phone: 10-21-2021 08:47-0400 Body height 162.[address] Michaela Mcfadden Work Phone: [facility] Work Phone: 10-21-2021 08:47-0400 Body mass index (BMI) [Ratio] 23.3 kg/m2 Dr. Michaela Mcfadden Work Phone: [facility] Work Phone: 10-21-2021 08:47-0400 Body weight 61.[address] Michaela Mcfadden Work Phone: [facility] Work Phone: 10-21-2021 08:47-0400 Diastolic blood pressure 63 mm[Hg] Dr. Michaela Mcfadden Work Phone: [facility] Work Phone: 10-21-2021 08:47-0400 Heart rate 60 /min Dr. Michaela Mcfadden Work Phone: [facility] Work Phone: 10-21-2021 08:47-0400 Respiratory rate 18 /min Dr. Michaela Mcfadden Work Phone: [facility] Work Phone: 10-21-2021 08:47-0400 SaO2% (BldA) [Mass fraction] 99 % Dr. Michaela Mcfadden Work Phone: [facility] Work Phone: 10-21-2021 08:47-0400 Systolic blood pressure 130 mm[Hg] Dr. Michaela Mcfadden Work Phone: [facility] Work Phone: 09-28-2021 03:17-0400 Body mass index (BMI) [Ratio] 23.6 kg/m2 Dr. Michaela Mcfadden Work Phone: [facility] Work Phone: 08-29-2021 01:41-0400 Body mass index (BMI) [Ratio] 23.6 kg/m2 [facility] Work Phone: 07-29-2021 09:37-0500 Body mass index (BMI) [Ratio] 23.6 kg/m2 Dr. Michaela Mcfadden Work Phone: [facility] Work Phone: 07-29-2021 08:37-0500 Body mass index (BMI) [Ratio] 23.6 kg/m2 [facility] Work Phone: 06-30-2021 21:53-0500 Body mass index (BMI) [Ratio] 23.6 kg/m2 [facility] Work Phone: 06-01-2021 03:05-0500 Body mass index (BMI) [Ratio] 23.6 kg/m2 [facility] Work Phone: 04-30-2021 01:17-0500 Body mass index (BMI) [Ratio] 23.6 kg/m2 [facility] Work Phone: 01-08-2017 07:38-0400 BMI (Body Mass Index) 24.46 kg/m2 [facility] Work Phone: 01-08-2017 07:38-0400 BP Diastolic 70 mm[Hg] [facility] Work Phone: 01-08-2017 07:38-0400 BP Systolic 134 mm[Hg] [facility] Work Phone: 01-08-2017 07:38-0400 Height 165.1 cm [facility] Work Phone: 01-08-2017 07:38-0400 Pulse (Heart Rate) 60 /min [facility] Work Phone: 01-08-2017 07:38-0400 Respiratory Rate 18 /min [facility] Work Phone: 01-08-2017 07:38-0400 Weight 66.68 kg [facility] Work Phone: 09-02-2016 08:51-0400 BMI (Body Mass Index) 23.93 kg/m2 [facility] Work Phone: 09-02-2016 08:51-0400 BP Diastolic 74 mm[Hg] [facility] Work Phone: 09-02-2016 08:51-0400 BP Systolic 140 mm[Hg] [facility] Work Phone: 09-02-2016 08:51-0400 Height 165.1 cm [facility] Work Phone: 09-02-2016 08:51-0400 Pulse (Heart Rate) 60 /min [facility] Work Phone: 09-02-2016 08:51-0400 Respiratory Rate 16 /min [facility] Work Phone: 09-02-2016 08:51-0400 Weight 65.23 kg [facility] Work Phone: 02-28-2016 09:44-0400 BSA (Body Surface Area) 1.78 m2 [facility] Work Phone: 02-28-2016 09:44-0400 Pulse Oximetry 98 % [facility] Work Phone: 04-25-2014 10:22-0500 Heart rate 65 /min [facility] Work Phone: Encounters Encounter Date Encounter Type Care Provider Facility Start: 11-05-2024 ambulatory [facility] Facility:[facility] Start: 10-29-2024 ambulatory [facility] Facility:[facility] Start: 10-26-2024 Non-patient / Non-visit Zarina MUNGUIA -[facility] Start: 10-26-2024 End: 10-26-[address] Michaela Mcfadden DO Work Phone: [facility] Work Phone: Start: 10-26-2024 End: 10-26-2024 Discharged Recurring [facility] Work Phone: Start: 10-05-2024 End: 10-05-[address] Anupam Lizarraga MD -Laboratory Work Phone: Start: 10-05-[address] Anupam Lizarraga MD -Laboratory Work Phone: Start: 10-05-2024 End: 10-05-[address] Michaela Mcfadden DO Work Phone: [facility] Work Phone: Start: 10-05-2024 Non-patient / Non-visit Zarina MUNGUIA -[facility] Start: 09-14-2024 Non-patient / Non-visit Zarina Fish PA -[facility] Start: 09-14-2024 End: 09-27-2024 ambulatory [facility] Facility:[facility] Start: 09-14-2024 End: 09-27-2024 Discharged Recurring Zarina MUNGUIA [facility] Work Phone: Start: 09-11-2024 End: 09-11-2024 ambulatory [facility] Facility:[facility] Start: 09-11-2024 End: 09-11-[address] Anupam Lizarraga MD -[facility] Work Phone: Start: 08-31-2024 ambulatory Zarina Fish [facility] Start: 08-31-2024 Non-patient / Non-visit Zarina Fish PA -[facility] Start: 08-30-2024 End: 08-30-2024 ambulatory [facility] Facility:[facility] Start: 08-30-2024 End: 08-30-[address] Anupam Lizarraga MD -[facility] Work Phone: Start: 08-17-2024 Non-patient / Non-visit Zarina Fish PA -[facility] Start: 08-17-2024 End: 08-28-2024 [facility] [employer] Work Phone: [facility] Work Phone: Start: 08-17-2024 End: 08-28-[address] Anupam Lizarraga MD -Laboratory Work Phone: Start: 08-17-2024 Registered Recurring Zarina MUNGUIA [facility] Work Phone: Start: 08-10-2024 [facility] Start: 08-10-2024 Non-patient / Non-visit Zarina Fish PA -[facility] Start: 07-27-2024 Non-patient / Non-visit Zarina Abe PA -[facility] Start: 07-27-2024 End: 07-28-2024 ambulatory [facility] Facility:[facility] Start: 07-27-2024 End: 07-28-2024 Discharged Recurring Zarinamonae Fish PA -[facility] Work Phone: Start: 07-20-2024 ambulatory [facility] Start: 07-20-2024 Non-patient / Non-visit Zarina Fish PA -[facility] Start: 07-12-2024 ambulatory [facility] Start: 07-12-2024 Non-patient / Non-visit Juanita SHAIKHC -[facility] Start: 07-06-2024 [facility] Start: 07-06-2024 Non-patient / Non-visit Zarina Fish PA -[facility] Start: 06-30-2024 End: 06-30-2024 [facility] Start: 06-30-2024 End: 06-30-[address] Anupam Lizarraga MD -Laboratory Work Phone: Start: 06-22-2024 Non-patient / Non-visit Zarina Fish PA -[facility] Start: 06-22-2024 End: 06-30-2024 [facility] Start: 06-22-2024 End: 06-30-2024 Discharged Recurring Zarina Fish PA -[facility] Work Phone: Start: 06-12-2024 End: 06-12-2024 ambulatory [facility] Start: 06-12-2024 End: 06-12-[address] Anupam Lizarraga MD -[facility] Work Phone: Start: 06-01-2024 [facility] Start: 06-01-2024 Non-patient / Non-visit Zarina Fish PA -[facility] Start: 05-18-2024 Non-patient / Non-visit Zarina Fish HI -[facility] Start: 05-18-2024 End: 05-30-2024 Discharged Recurring Zarina Fish PA -[facility] Work Phone: Start: 05-18-2024 End: 05-30-2024 ambulatory Zarina Fish Facility[facility] Start: 05-11-2024 ambulatory Rarden Micheal [facility] Start: 05-11-2024 Non-patient / Non-visit Zarina Fish [facility] Start: 05-05-2024 ambulatory Zarina Fish [facility] Start: 05-05-2024 Non-patient / Non-visit Zarina Fish [facility] Start: 05-03-2024 ambulatory Zarina Fish [facility] Start: 05-02-2024 ambulatory Zarina Fish [facility] Start: 05-02-2024 Non-patient / Non-visit Dr. Stan De Luna MD -[facility] Start: 05-02-2024 End: 05-02-[address] Stan De Luna MD -Cardiovascular Services Work Phone: Start: 05-02-2024 End: 05-02-2024 ambulatory Rarden Micheal [facility] Start: 04-26-2024 End: 04-29-2024 ambulatory [facility] Start: 04-13-2024 ambulatory [place] Fish [facility] Start: 04-06-2024 ambulatory Rarden Micheal [facility] Start: 03-30-2024 ambulatory Rarden Micheal [facility] Start: 03-30-2024 End: 03-30-2024 ambulatory Rarden Micheal [facility] Start: 03-24-2024 End: 03-24-2024 ambulatory Rarden Micheal [facility] Start: 03-20-2024 End: 03-20-2024 ambulatory Rarden Micheal [facility] Start: 03-20-2024 End: 03-20-2024 ambulatory Rarden Micheal [facility] Start: 03-13-2024 End: 03-13-2024 ambulatory Lynette Micheal [facility] Start: 03-06-2024 ambulatory Lynette Micheal [facility] Start: 03-06-2024 ambulatory Lynette Micheal [facility] Start: 03-06-2024 End: 03-06-2024 ambulatory Lynette Micheal [facility] Start: 02-23-2024 End: 02-23-2024 ambulatory Rarden Micheal [facility] Start: 02-23-2024 End: 02-23-2024 ambulatory Rarden Micheal [facility] Start: 01-26-2024 End: 01-26-2024 ambulatory Rarden Micheal [facility] Start: 01-12-2024 End: 01-12-2024 Emergency department patient visit [facility] Facility:[facility] Start: 01-11-2024 End: 01-11-2024 ambulatory [facility] Start: 12-17-2023 End: 12-29-2023 ambulatory [facility] Start: 12-13-2023 End: 12-13-2023 ambulatory [facility] Start: 11-11-2023 End: 11-11-2023 ambulatory [facility] Start: 09-13-2023 End: 09-13-2023 Admission to same day surgery center Dr. Karissa Madrid Work Phone: [facility]-Marketing Technology Coordinator/Special Procedures Work Phone: Start: 09-13-2023 End: 09-13-[address] Karissa Madrid Work Phone: [facility] Work Phone: Start: 08-24-2023 End: 08-24-[address] Karissa Madrid Work Phone: [facility] Work Phone: Start: 08-24-2023 End: 08-24-[address] Karissa Madrid Work Phone: [facility] Work Phone: Start: 08-24-2023 End: 08-24-[address] Karissa Madrid Work Phone: [facility]-Radiology, [facility] Work Phone: Start: 08-24-2023 End: 08-24-[address] Karissa Madrid Work Phone: [facility] Work Phone: Start: 07-29-2023 End: 07-29-[address] Karissa Madrid Work Phone: [facility] Work Phone: Start: 07-29-2023 End: 07-29-[address] Karissa Madrid Work Phone: [facility]-Laboratory Work Phone: Start: 06-16-2023 End: 06-16-[address] Karissa Madrid Work Phone: [facility] Work Phone: Start: 06-16-2023 End: 06-16-[address] Kar[facility] Start: 06-02-2023 End: 06-02-[address] Karissa Madrid Work Phone: [facility] Work Phone: Start: 04-30-2023 End: 05-30-[address] Karissa Madrid Work Phone: [facility] Work Phone: Start: 04-30-2023 End: 05-30-[address] Karissa Madrid Work Phone: [facility]-Laboratory Work Phone: Start: 04-21-2023 End: 04-29-[address] Karissa Madrid Work Phone: [facility] Work Phone: Start: 04-21-2023 End: 04-29-[address] Karissa Madrid Work Phone: [facility]-Laboratory Work Phone: Start: 03-25-2023 End: 03-25-[address] Karissa Madrid [facility] Start: 02-22-2023 End: 02-22-[address] Karissa Madrid Work Phone: [facility] Work Phone: Start: 02-22-2023 End: 02-22-[address] Karissa Madrid [facility] Start: 02-22-2023 End: 02-22-[address] Karissa Madrid Work Phone: [facility] Work Phone: Start: 01-21-2023 End: 01-21-[address] Karissa Madrid Work Phone: [facility] Work Phone: Start: 01-21-2023 End: 01-21-[address] Karissa Madrid [facility] Start: 12-18-2022 End: 12-28-[address] Karissa Madrid Work Phone: [facility] Work Phone: Start: 12-18-2022 End: 12-28-[address] Karissa Madrid [facility]: Start: 11-24-[address] Karissa Madrid Work Phone: [facility] Start: 11-24-2022 End: 11-24-[address] Karissa Madrid Work Phone: [facility] Work Phone: Start: 11-24-2022 End: 11-24-[address] Karissa Madrid [facility] Start: 11-24-[address] [place] [facility] [place] [facility]: [facility]: Start: 11-24-2022 End: 11-24-2022 Admission to same day surgery center Dr. Karissa Madrid Work Phone: [facility] Start: 11-24-2022 End: 11-24-[address] Karissa Madrid Work Phone: [facility] Work Phone: Start: 11-24-2022 End: 11-24-[address] Karissa Madrid Work Phone: [facility] Work Phone: Start: 11-13-2022 End: 11-13-[address] Karissa Madrid Work Phone: [facility] Work Phone: Start: 10-22-2022 End: 10-28-[address] Karissa Madrid Work Phone: [facility] Work Phone: Start: 10-22-2022 End: 10-28-[address] Karissa Madrid [facility] Start: 10-09-2022 End: 10-09-[address] Karissa Madrid Work Phone: [facility] Start: 09-30-2022 End: 09-30-[address] Karissa Madrid Work Phone: [facility] Work Phone: Start: 09-30-2022 End: 09-30-[address] Karissa Madrid Work Phone: [facility] Start: 09-17-2022 End: 09-27-[address] Karissa Madrid Work Phone: [facility] Work Phone: Start: 09-17-2022 End: 09-27-[address] Karissa Madrid [facility] Start: 09-04-2022 End: 09-04-[address] Karissa Madrid Work Phone: [facility] Work Phone: Start: 09-04-2022 End: 09-04-[address] Karissa Madrid [facility] Start: 09-04-2022 End: 09-04-[address] Karissa Madrid Work Phone: [facility] Start: 08-20-2022 End: 08-28-[address] Karissa Madrid Work Phone: [facility] Work Phone: Start: 08-20-2022 End: 08-28-[address] Karissa Madrid [facility] Start: 07-13-2022 End: 07-13-[address] Michaela Mcfadden Work Phone: [facility] Work Phone: Start: 07-13-2022 End: 07-13-[address] Michaela Mcfadden Work Phone: [facility]-Laboratory Start: 05-29-2022 End: 05-29-[address] Michaela Mcfadden Work Phone: [facility] Work Phone: Start: 05-29-2022 End: 05-29-[address] Michaela Mcfadden Work Phone: [facility]-Laboratory Start: 05-27-2022 End: 05-28-2022 ambulatory [facility] Start: 05-27-2022 End: 05-27-2022 Patient encounter procedure LOU SOCO DERRICK BUILDER-HARDWARE TECHNICIAN [facility] Start: 05-15-[address] Michaela Mcfadden Work Phone: [facility]-Laboratory Start: 05-15-2022 Non-patient / Non-visit Dr. Michaela Mcfadden Work Phone: [facility] Start: 05-15-2022 End: 05-15-[address] Michaela Mcfadden Work Phone: [facility] Work Phone: Start: 05-15-2022 End: 05-15-[address] Michaela Mcfadden Work Phone: [facility]Cardiovascular Services Start: 04-30-2022 End: 04-30-[address] Michaela Mcfadden Work Phone: [facility] Start: 04-15-2022 End: 04-29-2022 ambulatory [facility] Work Phone: Start: 04-15-2022 End: 04-29-2022 Discharged Recurring [facility] Start: 03-05-2022 End: 03-05-2022 Discharged Recurring [facility] Start: 02-04-2022 End: 02-04-2022 ambulatory [facility] Work Phone: Start: 02-04-2022 End: 02-04-2022 Discharged Recurring [facility] Start: 01-05-2022 End: 01-05-2022 Discharged Recurring [facility] Start: 12-05-2021 End: 12-28-[address] Michaela Mcfadden Work Phone: [facility] Start: 11-17-2021 End: 11-17-[address] Michaela Mcfadden Work Phone: [facility]-Labor[facility] Start: 10-21-2021 End: 10-21-[address] Michaela Mcfadden Work Phone: [facility] Start: 10-21-2021 End: 10-21-[address] Michaela Mcfadden Work Phone: [facility] Start: 09-25-2021 End: 09-25-2021 Discharged Recurring [facility] Start: 08-28-2021 End: 08-28-2021 Discharged Recurring [facility] Start: 07-01-2021 End: 07-01-2021 Discharged Recurring [facility] Start: 06-03-2021 End: 06-30-2021 Discharged Recurring [facility] Start: 05-21-2021 End: 05-31-2021 Discharged Recurring [facility] Start: 09-09-2016 End: 09-10-2016 Ambulatory [facility] Facility:[facility] Procedures Date Procedure Procedure Detail Performing Clinician Start: 08-17-2024 Anaerobic microbial culture Lynette ASH Work Phone: Start: 08-17-2024 Gram stain microscopy R abbie ASH Work Phone: Start: 08-17-2024 End: 08-17-2024 Microbial culture, routine Lynette Micheal [employer] Work Phone: Start: 06-22-2024 Anaerobic microbial culture Lynette Micheal [employer] Work Phone: Start: 06-22-2024 Gram stain microscopy R achel Micheal [employer] Work Phone: Start: 06-22-2024 Wound microscopy, cu lture and sensitivities Lynette Micheal [employer] Work Phone: Start: 06-08-2024 MRI of lower extremity Lynette Micheal [employer] Work Phone: Start: 06-01-2024 Plain X-ray of tibia and fibula Lynette Micheal [employer] Work Phone: Start: 06-01-2024 X-ray of ankle, two views Lynette Micheal [employer] Work Phone: Start: 05-11-2024 Anaerobic microbial culture Lynette Micheal [employer] Work Phone: Start: 05-11-2024 Gram stain microscopy R achel Micheal [employer] Work Phone: Start: 05-11-2024 Microbial culture, routine Lynette Micheal [employer] Work Phone: Start: 05-04-2024 Anaerobic microbial culture Lynette Micheal [employer] Work Phone: Start: 05-04-2024 Gram stain microscopy R achel Micheal [employer] Work Phone: Start: 05-04-2024 Microbial culture, routine Lynette Micheal [employer] Work Phone: Start: 08-24-2023 Plain chest X-ray Dr. Srikanth Madrid Work Phone: Start: 11-24-2022 US scan of gallbladder Dr. Karissa Madrid Work Phone: Start: 10-09-2022 Radionuclide imaging of liver and/or biliary tract using radioactive isotope Dr. Karissa Madrid Work Phone: Start: 09-30-2022 Radionuclide gastric emptying study Dr. Karissa Madrid Work Phone: Start: 05-15-2022 Cardiovascular stres s test using pharmacologic stress agent Dr. Michaela Mcfadden Work Phone: Start: 01-08-2017 End: 01-11-2017 Chest x-ray Anupam Lizarraga MD Start: 01-08-2017 End: 01-08-2017 Follow Up Appt 6 months Bharathi Mendez Start: 01-08-2017 End: 01-08-2018 INR in Platelet poor plasma by Coagulation assay Anupam Lizarraga MD Start: 01-08-2017 End: 01-08-2017 MMBharathi Lizarraga MD Start: 01-08-2017 End: 01-11-2017 Chest x-ray Anupam Lizarraga MD Start: 01-08-2017 End: 01-08-2018 Coagulation factor induced.INR assay in platelet poor plasma Anupam Lizarraga MD Start: 01-08-2017 End: 01-08-2017 Follow Up Appt 6 months Bharathi Mendez Start: 01-08-2017 End: 01-08-2017 EDI Lizarraga MD Start: 01-06-2017 End: 01-08-2017 Follow Up Appt 6 months Bharathi Mendez Start: 01-06-2017 End: 01-08-2017 Pacer Clinic Anupam Lizarraga MD Start: 01-06-2017 End: 01-06-2017 Program eval implantable in persn dual ld pacer Anupam Lizarraga MD Start: 01-06-2017 End: 01-08-2017 Follow Up Appt 6 months Bharathi Mendez Start: 01-06-2017 End: 01-08-2017 Pacer Clinic Anupam Lizarraga MD Start: 01-06-2017 End: 01-06-2017 Pm device progr eval, dual Anupam Lizarraga MD Start: 09-02-2016 End: 09-02-2016 STACK ATTENDANT Brook Gage PA-C Work Phone: Start: 09-02-2016 End: 01-08-2017 Echocardiography Brook Gage PA-C Work Phone: Start: 09-02-2016 End: 09-02-2016 Follow Up Appt 3 months Brook salas PA-C Work Phone: Start: 09-02-2016 End: 09-02-2016 STACK ATTENDANT Brook Gage PA-C Work Phone: Start: 09-02-2016 End: 01-08-2017 Echocardiography Brook Gage PA-C Work Phone: Start: 09-02-2016 End: 09-02-2016 Follow Up Appt 3 months Brook salas PA-C Work Phone: Start: 07-07-2016 End: 08-20-2016 Follow Up Appt 6 months Bharathi Mendez Start: 07-07-2016 End: 08-20-2016 Pacer Clinic Anupam Lizarraga MD Start: 07-07-2016 End: 07-07-2016 Program eval implantable in persn dual ld pacer Anupam Lizarraga MD Start: 07-07-2016 End: 08-20-2016 Follow Up Appt 6 months Bharathi Mendez Start: 07-07-2016 End: 08-20-2016 Pacer Clinic Anupam Lizarraga MD Start: 07-07-2016 End: 07-07-2016 Pm device progr eval, dual Anupam Lizarraga MD Start: 05-31-2016 Miscellaneous (quali fier value) 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 Start: 02-28-2016 End: 02-28-2016 Follow Up Appt 6 months Bharathi Mendez Start: 02-28-2016 End: 02-28-2016 EDI Lizarraga MD Start: 02-28-2016 End: 02-28-2016 Follow Up Appt 6 months Bharathi Mendez Start: 02-28-2016 End: 02-28-2016 EDI Lizarraga MD Start: 12-06-2015 End: 02-28-2016 Follow Up Appt 6 months Bharathi Mendez Start: 12-06-2015 End: 02-28-2016 Pacer Clinic Anupam Lizarraga MD Start: 12-06-2015 End: 12-06-2015 Program eval implantable in persn dual ld pacer Anupam Lizarraga MD Start: 12-06-2015 End: 02-28-2016 Follow Up Appt 6 months Bharathi Mendez Start: 12-06-2015 End: 02-28-2016 Pacer Clinic Anupam Lizarraga MD Start: 12-06-2015 End: 12-06-2015 Pm device progr eval, dual Anupam Lizarraga MD Start: 09-04-2015 End: 09-04-2015 PAUL Gage PA-C Work Phone: Start: 09-04-2015 End: 09-04-2015 Follow Up Appt 6 months Brook salas PA-C Work Phone: Start: 09-04-2015 End: 09-04-2015 STACK ATTENDANT Brook Gage PA-C Work Phone: Start: 09-04-2015 End: 09-04-2015 Follow Up Appt 6 months Brook salas PA-C Work Phone: Start: 06-07-2015 End: 09-04-2015 Follow Up Appt 6 months Bharathi Mendez Start: 06-07-2015 End: 09-04-2015 Pacer Clinic Anupam Lizarraga MD Start: 06-07-2015 End: 06-07-2015 Program eval implantable in persn dual ld pacer Anupam Lizarraga MD Start: 06-07-2015 End: 09-04-2015 Follow Up Appt 6 months Bharathi Mendez Start: 06-07-2015 End: 09-04-2015 Pacer Clinic Anupam Lizarraga MD Start: 06-07-2015 End: 06-07-2015 Pm device progr eval, dual Anupam Lizarraga MD Start: 03-01-2015 End: 03-02-2015 Documentation of current medications Anupam Lizarraga MD Start: 03-01-2015 End: 03-01-2015 Follow Up Appt 6 months Bharathi Mendez Start: 03-01-2015 End: 03-01-2015 MMM Anupam Lizarraga MD Start: 03-01-2015 End: 03-02-2015 Documentation of current medications Anupam Lizarraga MD Start: 03-01-2015 End: 03-01-2015 Follow Up Appt 6 months Bharathi Mendez Start: 03-01-2015 End: 03-01-2015 MMM Anupam Lizarraga MD Start: 11-26-2014 End: 11-26-2014 *CBC with Differential Brook walsh PA-C Work Phone: Start: 11-26-2014 End: 11-27-2014 Documentation of current medications Brook Gage PA-C Work Phone: Start: 11-26-2014 End: 02-20-2015 Echocardiography Brook Gage PA-C Work Phone: Start: 11-26-2014 End: 09-04-2015 Follow Up Appt 3 months Brook salas PA-C Work Phone: Start: 11-26-2014 End: 11-27-2014 INR in Platelet poor plasma by Coagulation assay Brook Gage PA-C Work Phone: Start: 11-26-2014 End: 09-04-2015 Pacer Clinic Brook Gage PA-C Work Phone: Start: 11-26-2014 End: 09-04-2015 PFM Brook Gage PA-C Work Phone: Start: 11-26-2014 End: 11-26-2014 Program eval implantable in persn dual ld pacer Brook Gage PA-C Work Phone: Start: 11-26-2014 End: 11-26-2014 *CBC with Differential Brook walsh PA-C Work Phone: Start: 11-26-2014 End: 11-27-2014 Coagulation factor induced.INR assay in platelet poor plasma EZRA Pineda-C Work Phone: Start: 11-26-2014 End: 11-27-2014 Documentation of current medications Brook Gage PA-C Work Phone: Start: 11-26-2014 End: 02-20-2015 Echocardiography Brook Gage PA-C Work Phone: Start: 11-26-2014 End: 09-04-2015 Follow Up Appt 3 months Brook salas PA-C Work Phone: Start: 11-26-2014 End: 09-04-2015 Pacer Clinic Brook Gage PA-C Work Phone: Start: 11-26-2014 End: 09-04-2015 PFM EZRA Pineda-C Work Phone: Start: 11-26-2014 End: 11-26-2014 Pm device progr eval, dual STACY BoucherC Work Phone: Start: 08-22-2014 End: 08-22-2014 STACK ATTENDANT Brook Gage PA-C Work Phone: Start: 08-22-2014 End: 08-22-2014 Follow Up Appt 3 months EZRA Paige-C Work Phone: Start: 08-22-2014 End: 08-22-2014 STACK ATTENDANT Brook Gage PA-C Work Phone: Start: 08-22-2014 End: 08-22-2014 Follow Up Appt 3 months EZRA Paige-C Work Phone: Start: 05-28-2014 End: 08-08-2014 Follow Up Appt 6 months EZRA Paige-Nieves Work Phone: Start: 05-28-2014 End: 08-08-2014 Pacer Clinic Brook Ggae PA-C Work Phone: Start: 05-28-2014 End: 05-28-2014 Program eval implantable in persn dual ld pacer Brook Gage PA-C Work Phone: Start: 05-28-2014 End: 08-08-2014 Follow Up Appt 6 months Brook salas PA-C Work Phone: Start: 05-28-2014 End: 08-08-2014 Pacer Clinic Brook Gage PA-C Work Phone: Start: 05-28-2014 End: 05-28-2014 Pm device progr eval, dual Brook Rodriguez PA-C Work Phone: Start: 04-25-2014 End: 08-08-2014 Device Interrogation Anupam Lizarraga MD Start: 04-25-2014 End: 04-25-2014 Ecg routine ecg w/least 12 lds w/i&r Anupam Lizarraga MD Start: 04-25-2014 End: 04-25-2014 Follow Up Appt 3 months Bharathi Mendez Start: 04-25-2014 End: 04-25-2014 EDI Lizarraga MD Start: 04-25-2014 End: 08-08-2014 Device Interrogation Anupam Lizarraga MD Start: 04-25-2014 End: 04-25-2014 Electrocardiogram, complete Anupam Woods i, MD Start: 04-25-2014 End: 04-25-2014 Follow Up Appt 3 months Bharathi Mendez Start: 04-25-2014 End: 04-25-2014 EDI Lizarraga MD Start: 05-14-2011 Cardiac pacemaker, d evice (physical object) LOU BURTON [facility] Plan of Treatment Date Care Activity Detail Author Start: 09-13-2023 Patient discharge [facility] Start: 07-14-2017 End: 07-14-2017 Appointment Appointment [facility] Work Phone: Start: 07-12-2017 End: 07-12-2017 Appointment Appointment [employer] Work Phone: Start: 01-08-2017 End: 01-11-2017 Chest x-ray X-Ray, Chest, PA & Lateral [facility] Work Phone: Start: 01-08-2017 End: 01-08-2017 Follow Up Appt 6 months Follow Up Appt 6 months [email or web address] Work Phone: Start: 01-08-2017 End: 02-10-2017 INR Coag RelTime (PPP) *PT/INR - Standing Order [facility] Work Phone: Start: 01-08-2017 End: 01-08-2017 MMM MMM [employer] Work Phone: Start: 01-08-2017 End: 01-08-2017 Appointment Appointment [facility] Work Phone: Start: 01-08-2017 End: 01-11-2017 Chest x-ray X-Ray, Chest, PA & Lateral [employer] Work Phone: Start: 01-08-2017 End: 02-10-2017 Coagulation factor induced.INR assay in platelet poor plasma *PT/INR - Standing Order [facility] Work Phone: Start: 01-08-2017 End: 01-08-2017 Follow Up Appt 6 months Follow Up Appt 6 months [employer] Work Phone: Start: 01-08-2017 End: 01-08-2017 MMM MMM [employer] Work Phone: Start: 01-06-2017 End: 01-08-2017 Follow Up Appt 6 months Follow Up Appt 6 months [employer] Work Phone: Start: 01-06-2017 End: 01-08-2017 Pacer Clinic [facility] Work Phone: Start: 01-06-2017 End: 01-06-2017 Appointment Appointment [facility] Work Phone: Start: 01-06-2017 End: 01-08-2017 Follow Up Appt 6 months Follow Up Appt 6 months [facility] Work Phone: Start: 01-06-2017 End: 01-08-2017 Pacer Clinic [facility] Work Phone: Start: 09-02-2016 End: 09-02-2016 STACK ATTENDANT STACK ATTENDANT [facility] Work Phone: Start: 09-02-2016 End: 09-02-2016 Echocardiography Echocardiogram (limited) [facility] Work Phone: Start: 09-02-2016 End: 09-02-2016 Follow Up Appt 3 months Follow Up Appt 3 months [facility] Work Phone: Start: 09-02-2016 End: 09-02-2016 STACK ATTENDANT STACK ATTENDANT [facility] Work Phone: Start: 09-02-2016 End: 12-07-2016 Echocardiography Echocardiogram (limited) [facility] Work Phone: Start: 09-02-2016 End: 09-02-2016 Follow Up Appt 3 months Follow Up Appt 3 months [facility] Work Phone: Start: 07-07-2016 End: 08-20-2016 Follow Up Appt 6 months Follow Up Appt 6 months [facility] Work Phone: Start: 07-07-2016 End: 08-20-2016 Pacer Clinic [facility] Work Phone: Start: 07-07-2016 End: 08-20-2016 Follow Up Appt 6 months Follow Up Appt 6 months [facility] Work Phone: Start: 07-07-2016 End: 08-20-2016 Pacer Clinic [facility] Work Phone: Start: 02-28-2016 End: 02-28-2016 Follow Up Appt 6 months Follow Up Appt 6 months [facility] Work Phone: Start: 02-28-2016 End: 02-28-2016 MMM MM [facility] Work Phone: Start: 02-28-2016 End: 02-28-2016 Follow Up Appt 6 months Follow Up Appt 6 months [facility] Work Phone: Start: 02-28-2016 End: 02-28-2016 MM MM [facility] Work Phone: Start: 12-06-2015 End: 02-28-2016 Follow Up Appt 6 months Follow Up Appt 6 months [facility] Work Phone: Start: 12-06-2015 End: 02-28-2016 Pacer Clinic [facility] Work Phone: Start: 12-06-2015 End: 02-28-2016 Follow Up Appt 6 months Follow Up Appt 6 months [facility] Work Phone: Start: 12-06-2015 End: 02-28-2016 Pacer Clinic [facility] Work Phone: Start: 09-04-2015 End: 09-04-2015 STACK ATTENDANT STACK ATTENDANT [facility] Work Phone: Start: 09-04-2015 End: 09-04-2015 Follow Up Appt 6 months Follow Up Appt 6 months [facility] Work Phone: Start: 09-04-2015 End: 09-04-2015 STACK ATTENDANT STACK ATTENDANT [facility] Work Phone: Start: 09-04-2015 End: 09-04-2015 Follow Up Appt 6 months Follow Up Appt 6 months [facility] Work Phone: Start: 06-07-2015 End: 09-04-2015 Follow Up Appt 6 months Follow Up Appt 6 months [facility] Work Phone: Start: 06-07-2015 End: 09-04-2015 Pacer Clinic Pac[facility] Clinic [facility] Work Phone: Start: 06-07-2015 End: 09-04-2015 Follow Up Appt 6 months Follow Up Appt 6 months [facility] Work Phone: Start: 06-07-2015 End: 09-04-2015 Pacer Clinic [facility] Work Phone: Start: 03-01-2015 End: 03-01-2015 Follow Up Appt 6 months Follow Up Appt 6 months [facility] Work Phone: Start: 03-01-2015 End: 03-01-2015 MMM MMM [facility] Work Phone: Start: 03-01-2015 End: 03-01-2015 Follow Up Appt 6 months Follow Up Appt 6 months [facility] Work Phone: Start: 03-01-2015 End: 03-01-2015 MMM MMM [facility] Work Phone: Start: 11-26-2014 End: 11-26-2014 *CBC with Differential *CBC with Differential [facility] Work Phone: Start: 11-26-2014 End: 11-27-2014 Echocardiography Echocardiogram (limited) [facility] Work Phone: Start: 11-26-2014 End: 09-04-2015 Follow Up Appt 3 months Follow Up Appt 3 months [facility] Work Phone: Start: 11-26-2014 End: 11-27-2014 INR Coag RelTime (PPP) *PT/INR - Standing Order [facility] Work Phone: Start: 11-26-2014 End: 09-04-2015 Pacer Clinic [facility] Work Phone: Start: 11-26-2014 End: 09-04-2015 PFM PFM [facility] Work Phone: Start: 11-26-2014 End: 11-26-2014 *CBC with Differential *CBC with Differential [facility] Work Phone: Start: 11-26-2014 End: 11-27-2014 Coagulation factor induced.INR assay in platelet poor plasma *PT/INR - Standing Order [facility] Work Phone: Start: 11-26-2014 End: 11-27-2014 Echocardiography Echocardiogram (limited) [facility] Work Phone: Start: 11-26-2014 End: 09-04-2015 Follow Up Appt 3 months Follow Up Appt 3 months [facility] Work Phone: Start: 11-26-2014 End: 09-04-2015 Pacer Clinic Pacer Clinic [facility] Work Phone: Start: 11-26-2014 End: 09-04-2015 PFM PFM [facility] Work Phone: Start: 08-22-2014 End: 08-22-2014 STACK ATTENDANT [employer] [facility] Work Phone: Start: 08-22-2014 End: 08-22-2014 Follow Up Appt 3 months Follow Up Appt 3 months [facility] Work Phone: Start: 08-22-2014 End: 08-22-2014 STACK ATTENDANT [facility] Work Phone: Start: 08-22-2014 End: 08-22-2014 Follow Up Appt 3 months Follow Up Appt 3 months [facility] Work Phone: Start: 05-28-2014 End: 08-08-2014 Follow Up Appt 6 months Follow Up Appt 6 months [facility] Work Phone: Start: 05-28-2014 End: 08-08-2014 Pacer Clinic Pac[facility] Clinic [facility] Work Phone: Start: 05-28-2014 End: 08-08-2014 Follow Up Appt 6 months Follow Up Appt 6 months [facility] Work Phone: Start: 05-28-2014 End: 08-08-2014 Pacer Clinic [facility] Work Phone: Start: 04-25-2014 End: 08-08-2014 Device Interrogation Device Interrogation [facility] Work Phone: Start: 04-25-2014 End: 04-25-2014 Ecg routine ecg w/least 12 lds w/i&r EKG (In office) [facility] Work Phone: Start: 04-25-2014 End: 04-25-2014 Follow Up Appt 3 months Follow Up Appt 3 months [facility] Work Phone: Start: 04-25-2014 End: 04-25-2014 MMM MMM [facility] Work Phone: Start: 04-25-2014 End: 08-08-2014 Device Interrogation Device Interrogation [facility] Work Phone: Start: 04-25-2014 End: 04-25-2014 Electrocardiogram, complete EKG (In office) [facility] Work Phone: Start: 04-25-2014 End: 04-25-2014 Follow Up Appt 3 months Follow Up Appt 3 months [facility] Work Phone: Start: 04-25-2014 End: 04-25-2014 MMM MMM [facility] Work Phone: Patient referral [facility] Work Phone: Radionuclide gastric emptying study [facility] Radionuclide imaging of liver and/or biliary tract using radioactive isotope [facility] Replacement of elect ronic heart device, pulse generator [facility] Payers Date Payer Category Payer Medicare [id number] 2024 Medicare [id number] 2023 Self-pay [id number] 2013 Medicare [id number] 1945 Unknown [id number] 2.16.8 40.1.999016.3.579.2.627 1947 Unknown [id number] 2.16.8 40.1.483089.3.579.2.627 Unknown [id number] 2.16.8 40.1.922194.3.579.2.462 Unknown [id number] 2.16.8 40.1.698468.3.579.2.462 Unknown [id number] 2.16.8 40.1.442992.3.579.2.462 Unknown [id number] 2.16.8 40.1.124975.3.579.2.462 Unknown [id number] 2.16.8 40.1.983531.3.579.2.462 Unknown [id number] 2.16.8 40.1.765220.3.579.2.462 Unknown [id number] 2.16.8 40.1.608512.3.579.2.462 Unknown [id number] 2.16.8 40.1.028145.3.579.2.462 Unknown [id number] 2.16.8 40.1.950973.3.579.2.462 Unknown [id number] 2.16.8 40.1.712574.3.579.2.462 Unknown [id number] 2.16.8 40.1.534886.3.579.2.462 Unknown [id number] 2.16.8 40.1.175152.3.579.2.462 Unknown [id number] 2.16.8 40.1.094055.3.579.2.462 Unknown [id number] 2.16.8 40.1.531746.3.579.2.462 Unknown [id number] 2.16.8 40.1.910834.3.579.2.462 Unknown [id number] 2.16.8 40.1.549570.3.579.2.462 Unknown [id number] 2.16.8 40.1.378244.3.579.2.462 Unknown [id number] 2.16.8 40.1.464719.3.579.2.462 Unknown [id number] 2.16.8 40.1.166832.3.579.2.462 Unknown [id number] 2.16.8 40.1.862522.3.579.2.462 Unknown [id number] 2.16.8 40.1.467209.3.579.2.462 Unknown [id number] 2.16.8 40.1.228863.3.579.2.462 Unknown [id number] 2.16.8 40.1.874246.3.579.2.462 Unknown [id number] 2.16.8 40.1.803946.3.579.2.462 Unknown [id number] 2.16.8 40.1.621839.3.579.2.462 Unknown [id number] 2.16.8 40.1.611115.3.579.2.462 Unknown [id number] 2.16.8 40.1.817290.3.579.2.462 Unknown [id number] 2.16.8 40.1.392282.3.579.2.462 Unknown [id number] 2.16.8 40.1.058264.3.579.2.462 Unknown [id number] 2.16.8 40.1.687478.3.579.2.462 Unknown [id number] 2.16.8 40.1.945871.3.579.2.462 Unknown [id number] 2.16.8 40.1.520408.3.579.2.462 Unknown [id number] 2.16.8 40.1.904069.3.579.2.462 Unknown [id number] 2.16.8 40.1.866872.3.579.2.462 Unknown [id number] 2.16.8 40.1.828137.3.579.2.462 Unknown [id number] 2.16.8 40.1.282120.3.579.2.462 Unknown [id number] 2.16.8 40.1.897284.3.579.2.462 Unknown [id number] 2.16.8 40.1.795496.3.579.2.462 Unknown [id number] 2.16.8 40.1.133509.3.579.2.462 Unknown [id number] 2.16.8 40.1.747094.3.579.2.462 Unknown [id number] 2.16.8 40.1.489844.3.579.2.462 Unknown [id number] 2.16.8 40.1.606042.3.579.2.462 Unknown [id number] 2.16.8 40.1.533937.3.579.2.462 Unknown [id number] 2.16.8 40.1.175629.3.579.2.462 Unknown [id number] 2.16.8 40.1.358794.3.579.2.462 Unknown [id number] 2.16.8 40.1.225153.3.579.2.462 Unknown [id number] 2.16.8 40.1.909407.3.579.2.462 Unknown [id number] 2.16.8 40.1.432437.3.579.2.462 Unknown [id number] 2.16.8 40.1.371723.3.579.2.462 Unknown [id number] 2.16.8 40.1.215660.3.579.2.462 Unknown [id number] 2.16.8 40.1.736408.3.579.2.462 Unknown [id number] 2.16.8 40.1.088739.3.579.2.462 Unknown [id number] 2.16.8 40.1.633360.3.579.2.462 Unknown [id number] 2.16.8 40.1.060579.3.579.2.462 Unknown [id number] 2.16.8 40.1.254603.3.579.2.462 Unknown [id number] 2.16.8 40.1.388625.3.579.2.462 Unknown [id number] 2.16.8 40.1.077805.3.579.2.462 Unknown [id number] 2.16.8 40.1.009432.3.579.2.462 Unknown [id number] 2.16.8 40.1.760333.3.579.2.462 Unknown [id number] 2.16.8 40.1.307808.3.579.2.462 Unknown [id number] 2.16.8 40.1.732620.3.579.2.462 Social History Date Type Detail Facility Start: 04-08-2021 End: 09-13-2023 Tobacco smoking status NHIS Unknown if ever smoked [facility] Start: 05-26-[address] [facility] Start: 05-26-[address] [facility] Start: 1945 Sex Assigned At Female [facility] Start: 05-18-2022 End: 01-12-2024 Tobacco smoking status Never smoked tobacco (finding) [facility] Sex Assigned At Sex [facility] Start: 08-28-2024 End: 08-29-2024 Sex Female (finding) [facility] Medical Equipment Procedure Code Equipment Code Equipment Origin al Text Equipment Identifier Dates ([id number]) Dual-chamber implantable pacemaker, rate-responsive ()[id number] [facility] Start: 09-13-2023 Clinical Notes 05-18-2024 to 10-05-2024 Note Date & Type Note Facility 10-05-2024 Progress note Note Date/Time October 05, 2024 1:37pm [facility] [address] [place] [address] Progress Note - Wound Care 10/05/24 1333 MR#: [id number] Acct: [id number] Name: JC GROSS Rep #:[id number] : 1945 79 From: Zarina MUNGUIA PCP: Lynette Micheal, [facility] Status:REG RCR Location: History of Present Illness Date of Service: 10/05/24 Chief Complaint: R posterolateral calf wound History of Wound: Jc Gross is a 78 y/o female who presents today for evaluation and management of a right posterolateral calf wound. She is accompanied to her appointment today by two family members. She is known to me from the vascular office where I have seen her for suspected venous insufficiency where I ordered venous reflux study which she is not scheduled to complete until 04/19. She reports that shortly after I saw her in the office in December, she developed this R calf wound. She thinks that she may have bumped this area of her leg. At home, she has been applying B&W ointment and other various herb salves without much improvement. She was started on some antibiotic by her PCP which she did not tolerate well, she cannot recall what antibiotic that was but she thinks shestill has the bottle at home. She recently was seen for this wound in urgent care 03/20 at which time cultures were obtained. She was empirically started on Amoxicillin 875mg BID x 14 days which she is tolerating so far. The cultures ultimately grew lerma-sensitive E. coli. She notes mild to moderate drainage from the wound. She denies any spreading erythema, foul odor, acutely worsened edema, N/V, F/C. She is not diabetic. She does not smoke. Medical history is otherwise significant for A-fib (chronically anticoagulated with Coumadin), sick sinus syndrome status post pacemaker placement (2008). Subjective Subjective Jc returns today for evaluation of her R baird wound. She has not noticed any drainage from the wound in the last week, she thinks it may be healed. She has not had any recurrent erythema, excess tenderness, warmth or swelling around thewound since completing her last antibiotic regimen. No new wounds. Objective Data Objective Data Vital Signs: Vital Signs Temp Pulse Resp BP 97.6 F L 62 18 141/62 H 10/05/24 13:01 10/05/24 13:01 10/05/24 13:01 10/05/24 13:01 Charges/Coding Procedures Integumentary 111xxx-113xx: [id number] Jazzy subq tissue 20 sq cm/< Physical Exam Const alert, oriented x3 and no apparent distress General Appearance: cooperative and comfortable HEENT normocephalic, hearing grossly normal bilaterally, external ears normal and external nose normal Eyes EOMs intact bilaterally General Eye: normal appearance of both eyes Neck General: normal visual inspection and trachea midline Resp normal respiratory effort, normal air movement, no retractions and no use of accessory muscles Effort and Inspection: able to speak in complete sentences Cardio regular rate and regular rhythm Extremity General Extremity: edema bilateral Peripheral Pulses: Yes dorsalis pedis pulses present Skin Wounds: wounds noted Wound Narrative: Right posterolateral calf wound remains healed. R anterior baird/ankle wound cluster, proximal portion remains epithelialized though a depressed scar. The distal portion has small opening remaining with nowfully granular base with no visible connective tissue, depth appears improved. The prior pinhole openings remain closed. There is no induration, erythema, excess warmth, focal edema. Neuro oriented x3, CN's II-XII intact bilaterally, moves all extremities, no focal motor deficits and no sensory deficits noted Psych mental status grossly normal Attitude: calm and engaged Activity / Motor Behavior: appropriate eye contact Speech: normal speech Mood & Affect: euthymic mood Judgement: judgement good Debridement Note Debridement Note Wound debrided: Right anterior baird wound Laterality: Right Type of Debridement: Excisional debridement Anesthesia Used: 4% Lidocaine Solution and 5% Lidocaine Gel Depth: Down to and including healthy tissue and in the subcutaneous layer Percentage of wound debrided: 100 Instrument Used: 3mm curette Tissue Removed: slough, devitalized tissue Severity: Fat Layer Exposed Amount of bleeding with debridement: Mild Bleeding Controlled with: Pressure Patient tolerated procedure: Patient tolerated procedure well Post-Debridement Measurements and Additional Note: Post-Debridement Measurements/Treatment [facility] Nurse 1 - General Ulcer Assessment Start: 10/05/24 13:01 Freq: Status: Active Protocol: CELY.OSMEL Activity Type Activity Date Activity User E-sign Co-sign Detail Recorded Client Recorded Date Recorded By Document 10/05/24 13:01 DL [id number] 10/05/24 13:06 DL 10/05/24 13:01 - Today's Visit Information Type of service Follow-up Visit (Physician/HARDWARE TECHNICIAN ) Arrival Mode Ambulatory Transfer Assistance None Patient Identification Verified (Name & Yes ) Patient Requires Transmission-Based No Precautions Vital Signs Temperature (97.8 F-99.1 F) 97.6 F L Temperature Source Temporal Pulse Rate (60-100) 62 Pulse Location Monitor Respiratory Rate (12-18) 18 Respiratory rate source Observation Blood Pressure (90/60-120/80) 141/62 H Blood Pressure Mean (mm Hg) 88 Source Monitor History Since Last Visit- (Skip if this is Patient's initial visit) Have you changed medications since your No last visit? Any new allergies or adverse reactions No Had a fall/change in ADL's that may No increase risk of falls Signs or symptoms of abuse and/or No neglect since last visit Have you been in the hospital since your No last visit? Has dressing in place as prescribed Yes Has compression in place as prescribed Yes Has offloadiing in place as prescribed Yes Experienced any changes in pain level or No management Pain Scale: 0-10 Numeric Is Patient Pain Free? Yes WC - Nurse 1 - General Ulcer Measurement Start: 10/05/24 13:01 Freq: Status: Active Protocol: Activity Type Activity Date Activity User E-sign Co-sign Detail Recorded Client Recorded Date Recorded By Document 10/05/24 13:01 PEE [id number] 10/05/24 13:06 DL 10/05/24 13:01 Wound Center Nurse 1 #2 Right inferior ankle CLUSTER -Current Size (cm) - Length 0.1 -Current Size (cm) - Width 0.1 -Current Size (cm) - Depth 0.1 -Total Square Cm 0.01 -Photo Taken Yes -Exudate Amt None Present -Wound Margin Distinct, Outline Attached -Granulation Amt Medium (34-66%) -Granulation Quality Pale,Snowflake -Necrosis Amt None Present (0 %) -Structure Exposed N/A -Texture (Alpa-wound Skin Appearance) Scarring -Moisture (Alpa-wound Skin Appearance) No Abnormality -Color (Alpa-wound Skin Appearance) No Abnormality -Temperature (Alpa-wound Skin No Abnormality Appearance) (Pt Warm) -Tenderness on Palpation (Alpa-wound No Skin Appearance) -Ulcer Cleansing Rinsed/ Irrigated with Saline -Foul Odor after Cleansing No Right Calf (cm) 33 Right Ankle (cm) 19.5 WC - Nurse 2 - General Ulcer CM Notes Start: 10/05/24 13:01 Freq: Status: Active Protocol: Activity Type Activity Date Activity User E-sign Co-sign Detail Recorded Client Recorded Date Recorded By Document 10/05/24 13:17 [id number] 10/05/24 13:19 10/05/24 13:17 Wound Center Nurse 2 #2 Right inferior ankle CLUSTER -Time 13:17 -Correct Patient Yes -Correct Side, Site, Position Yes -Correct Procedure Yes -Procedure Performed Yes -Type of Procedure Debridement -Clinical Debridement Subcutaneous -Tissue Removed Subcutaneous -Post Debridement (cm) - Length 0.6 -Post Debridement (cm) - Width 0.5 -Post Debridement (cm) - Depth 0.3 -Total Square (Post) (cm) 0.30 -Area of Debridement (cm) - Length 0.6 -Area of Debridement (cm) - Width 0.5 -Total Square (Area) (cm) 0.30 -Tunneling No -Undermining/Tunneling No -Circular Undermining No -Wound/Ulcer Outcome Not Healed -Ulcer Cleansing Not Cleansed -Foul Odor after Cleansing No -Bioengineered Tissue No -Bleeding Controlled with Pressure -Treatment Response Procedure Tolerated Well -Offloading No -Debridement - Subq, 1st 20sq cm Yes Pain Scale: 0-10 Numeric Is Patient Pain Free? Yes - Nurse 3 - General Ulcer D/C NN Start: 10/05/24 13:01 Freq: Status: Active Protocol: Activity Type Activity Date Activity User E-sign Co-sign Detail Recorded Client Recorded Date Recorded By Document 10/05/24 13:23 KW [id number] 10/05/24 13:23 KW Edit Result 10/05/24 13:23 KW (1) [id number] 10/05/24 13:30 KW (1) #2 Right inferior ankle CLUSTER - Primary Dressing Applied Silicone Border => Fibracol Plus 4x4 Foam 4x4 => - Other Dressing pt own fibracol => - Fibracol Plus 4x4 => 1 - Silicone Border Foam 4x4 1 => 10/05/24 13:23 Wound Care Center Nurse 3 #2 Right inferior ankle CLUSTER -Primary Dressing Applied Fibracol Plus 4x4 -Fibracol Plus 4x4 1 RLE -Tubular Bandage Single Layer -Size of Tubigrip Used Size D -Size D ($) 1 Pain Scale: 0-10 Numeric Is Patient Pain Free? Yes WC - Visit Discharge Discharge Condition Stable Ambulatory Status Ambulatory Transportation Private Auto Medication Reconcilliation completed & No provided to patient/care provider Clinical Summary of Care Provided Yes Assessment/Plan Assessment/Plan (1) Venous insufficiency of both lower extremities: CODE(S): I87.2 - Venous insufficiency (chronic) (peripheral) (2) Ulcer of right ankle: CODE(S): L97.319 - Non-pressure chronic ulcer of right ankle with unspecified severity PLAN: ulcer of the right anterior ankle with to the muscle layer PLAN: Plan For wound care, will continue with Fibracol followed by kerlix wrap. She has very sensitive skin, will utilize silicone tape or tape only dressings and avoidtaping skin. Change daily or more often as needed to keep clean and dry. With dressing changes, wash the area with antibacterial soap and water, pat gently todry well. No submerging the wound in water such as to take a bath, go swimming, etc. Wound does appear to be improving and no signs of recurrent infection; however, not healed as she suspected. Debrided some adherent slough/dried drainage and some mild epibole about the edges. Will continue medium strength single layer tubigrip for compression. She will return in 3 weeks per her preference. 10/05/24 1337 <Electronically signed by Zarina MUNGUIA> Cosigner Signature (if applicable): CC: ~ Signed [facility] Work Phone: [phone]) 389-827405-08-2025 Progress note [facility] [address] [place] [address] Progress Note - Wound Care 10/05/24 1333 MR#: [id number] Acct: [id number] Name: JC GROSS Rep #:[id number] : 1945 79 From: Zarina MUNGUIA PCP: NILSA Macias Status:REG RCR Location: History of Present Illness Date of Service: 10/05/24 Chief Complaint: R posterolateral calf wound History of Wound: Jc Gross is a 78 y/o female who presents today for evaluation and management of a right posterolateral calf wound. She is accompanied to her appointment today by two familymembers. She is known to me from the vascular office where I have seen her for suspected venous insu fficiency where I ordered venous reflux study which she is not scheduled to complete until 04/19. She reports that shortly after I saw her in the office in December, she developed this R calf wound. She thinks that she may have bumped this area of her leg. At home, she has been applying B&W ointment and other various herb salves without much improvement. She was started on some antibiotic by her PCP which she did not tolerate well, she cannot recall what antibiotic that was but she thinks grecia hartman has the bottle at home. She recently was seen for this wound in urgent care 03/20 at which time cultures were obtained. She was empirically started on Amoxicillin 875mg BID x 14 days which sheis tolerating so far. The cultures ultimately grew lerma-sensitive E. coli. She notes mild to moderate drainage from the wound. She denies any spreading erythema, foul odor, acutely worsened edema, N/V, F/C. She is not diabetic. She does not smoke. Medical history is otherwise significant for A-fib (chronically anticoagulated with Coumadin), sick sinus syndrome status post pacemaker placement (2008). Subjective Subjective Jc returns today for evaluation of her R baird wound. She has not noticed any drainage from the wound in the last week, she thinks it may be healed. She has not had any recurrent erythema, excess tenderness, warmth or swelling around thewound since completing her last antibiotic regimen. No new wounds. Objective Data Objective Data Vital Signs: Vital Signs Temp Pulse Resp BP 97.6 F L 62 18 141/62 H 10/05/24 13:10/05/24 13:01 10/05/24 13:10/05/24 13:01 Charges/Coding Procedures Integumentary 111xxx-113xx: 46913 Jazzy subq tissue 20 sq cm/< Physical Exam Const alert, oriented x3 and no apparent distress General Appearance: cooperative and comfortable HEENT normocephalic, hearing grossly normal bilaterally, external ears normal and external nose normal Eyes EOMs intact bilaterally General Eye: normal appearance of both eyes Neck General: normal visual inspection and trachea midline Resp normal respiratory effort, normal air movement, no retractions and no use of accessory muscles Effort and Inspection: able to speak in complete sentences Cardio regular rate and regular rhythm Extremity General Extremity: edema bilateral Peripheral Pulses: Yes dorsalis pedis pulses present Skin Wounds: wounds noted Wound Narrative: Right posterolateral calf wound remains healed. R anterior baird/ankle wound cluster, proximal portion remains epithelialized though a depressed scar. The distal portion has small opening remaining with nowfully granular base with no visible connective tissue, depth appears improved. The prior pinhole openings remain closed. There is no induration, erythema, excess warmth, focal edema. Neuro oriented x3, CN's II-XII intact bilaterally, moves all extremities, no focal motor deficits and no sensory deficits noted Psych mental status grossly normal Attitude: calm and engaged Activity / Motor Behavior: appropriate eye contact Speech: normal speech Mood & Affect: euthymic mood Judgement: judgement good Debridement Note Debridement Note Wound debrided: Right anterior baird wound Laterality: Right Type of Debridement: Excisional debridement Anesthesia Used: 4% Lidocaine Solution and 5% Lidocaine Gel Depth: Down to and including healthy tissue and in the subcutaneous layer Percentage of wound debrided: 100 Instrument Used: 3mm curette Tissue Removed: slough, devitalized tissue Severity: Fat Layer Exposed Amount of bleeding with debridement: Mild Bleeding Controlled with: Pressure Patient tolerated procedure: Patient tolerated procedure well Post-Debridement Measurements and Additional Note: Post-Debridement Measurements/Treatment CELY - Nurse 1 - General Ulcer Assessment Start: 10/05/24 13:01 Freq: Status: Active Protocol: JAIME Activity Type Activity Date Activity User E-sign Co-sign Detail Recorded Client Recorded Date Recorded By Document 10/05/24 13:01 PEE [id number] 10/05/24 13:06 DL 10/05/24 13:01 - Today's Visit Information Type of service Follow-up Visit (Physician/HARDWARE TECHNICIAN ) Arrival Mode Ambulatory Transfer Assistance None Patient Identification Verified (Name & Yes ) Patient Requires Transmission-Based No Precautions Vital Signs Temperature (97.8 F-99.1 F) 97.6 F L Temperature Source Temporal Pulse Rate (60-100) 62 Pulse Location Monitor Respiratory Rate (12-18) 18 Respiratory rate source Observation Blood Pressure (90/60-120/80) 141/62 H Blood Pressure Mean (mm Hg) 88 Source Monitor History Since Last Visit- (Skip if this is Patient's initial visit) Have you changed medications since your No last visit? Any new allergies or adverse reactions No Had a fall/change in ADL's that may No increase risk of falls Signs or symptoms of abuse and/or No neglect since last visit Have you been in the hospital since your No last visit? Has dressing in place as prescribed Yes Has compression in place as prescribed Yes Has offloadiing in place as prescribed Yes Experienced any changes in pain level or No management Pain Scale: 0-10 Numeric Is Patient Pain Free? Yes - Nurse 1 - General Ulcer Measurement Start: 10/05/24 13:01 Freq: Status: Active Protocol: Activity Type Activity Date Activity User E-sign Co-sign Detail Recorded Client Recorded Date Recorded By Document 10/05/24 13:01 PEE [id number] 10/05/24 13:06 DL 10/05/24 13:01 Wound Center Nurse 1 #2 Right inferior ankle CLUSTER -Current Size (cm) - Length 0.1 -Current Size (cm) - Width 0.1 -Current Size (cm) - Depth 0.1 -Total Square Cm 0.01 -Photo Taken Yes -Exudate Amt None Present -Wound Margin Distinct, Outline Attached -Granulation Amt Medium (34-66%) -Granulation Quality Pale,Snowflake -Necrosis Amt None Present (0 %) -Structure Exposed N/A -Texture (Alpa-wound Skin Appearance) Scarring -Moisture (Alpa-wound Skin Appearance) No Abnormality -Color (Alpa-wound Skin Appearance) No Abnormality -Temperature (Alpa-wound Skin No Abnormality Appearance) (Pt Warm) -Tenderness on Palpation (Alpa-wound No Skin Appearance) -Ulcer Cleansing Rinsed/ Irrigated with Saline -Foul Odor after Cleansing No Right Calf (cm) 33 Right Ankle (cm) 19.5 - Nurse 2 - General Ulcer CM Notes Start: 10/05/24 13:01 Freq: Status: Active Protocol: Activity Type Activity Date Activity User E-sign Co-sign Detail Recorded Client Recorded Date Recorded By Document 10/05/24 13:17 [id number] 10/05/24 13:19 10/05/24 13:17 Wound Center Nurse 2 #2 Right inferior ankle CLUSTER -Time 13:17 -Correct Patient Yes -Correct Side, Site, Position Yes -Correct Procedure Yes -Procedure Performed Yes -Type of Procedure Debridement -Clinical Debridement Subcutaneous -Tissue Removed Subcutaneous -Post Debridement (cm) - Length 0.6 -Post Debridement (cm) - Width 0.5 -Post Debridement (cm) - Depth 0.3 -Total Square (Post) (cm) 0.30 -Area of Debridement (cm) - Length 0.6 -Area of Debridement (cm) - Width 0.5 -Total Square (Area) (cm) 0.30 -Tunneling No -Undermining/Tunneling No -Circular Undermining No -Wound/Ulcer Outcome Not Healed -Ulcer Cleansing Not Cleansed -Foul Odor after Cleansing No -Bioengineered Tissue No -Bleeding Controlled with Pressure -Treatment Response Procedure Tolerated Well -Offloading No -Debridement - Subq, 1st 20sq cm Yes Pain Scale: 0-10 Numeric Is Patient Pain Free? Yes - Nurse 3 - General Ulcer D/C NN Start: 10/05/24 13:01 Freq: Status: Active Protocol: Activity Type Activity Date Activity User E-sign Co-sign Detail Recorded Client Recorded Date Recorded By Document 10/05/24 13:23 KW [id number] 10/05/24 13:23 KW Edit Result 10/05/24 13:23 KW (1) [id number] 10/05/24 13:30 KW (1) #2 Right inferior ankle CLUSTER - Primary Dressing Applied Silicone Border => Fibracol Plus 4x4 Foam 4x4 => - Other Dressing pt own fibracol => - Fibracol Plus 4x4 => 1 - Silicone Border Foam 4x4 1 => 10/05/24 13:23 Wound Care Center Nurse 3 #2 Right inferior ankle CLUSTER -Primary Dressing Applied Fibracol Plus 4x4 -Fibracol Plus 4x4 1 RLE -Tubular Bandage Single Layer -Size of Tubigrip Used Size D -Size D ($) 1 Pain Scale: 0-10 Numeric Is Patient Pain Free? Yes - Visit Discharge Discharge Condition Stable Ambulatory Status Ambulatory Transportation Private Auto Medication Reconcilliation completed & No provided to patient/care provider Clinical Summary of Care Provided Yes Assessment/Plan Assessment/Plan (1) Venous insufficiency of both lower extremities: CODE(S): I87.2 - Venous insufficiency (chronic) (peripheral) (2) Ulcer of right ankle: CODE(S): L97.319 - Non-pressure chronic ulcer of right ankle with unspecified severity PLAN: ulcer of the right anterior ankle with to the muscle layer PLAN: Plan For wound care, will continue with Fibracol followed by kerlix wrap. She has very sensitive skin, will utilize silicone tape or tape only dressings and avoidtaping skin. Change daily or more often asneeded to keep clean and dry. With dressing changes, wash the area with antibacterial soap and water, pat gently todry well. No submerging the wound in water such as to take a bath, go swimming, etc. Wound does appear to be improving and no signs of recurrent infection; however, not healed as she suspected. Debrided some adherent slough/dried drainage and some mild epibole about the edges. Will continue medium strength single layer tubigrip for compression. She will return in 3 weeks per her preference. 10/05/24 1337 Cosigner Signature (if applicable): CC: ~ Signed [facility]03-20-2025 Progress note Author Zarina Fish [facility] Note Date/Time August 17, 2024 1:3 8pm [facility] [address] [place] [address] Progress Note - Wound Care 08/17/24 1336 MR#: [id number] Acct: [id number] Name: JC GROSS Rep #:[id number] : 1945 79 From: Zarina MUNGUIA PCP: NILSA Macias Status:REG RCR Location: History of Present Illness Date of Service: 08/17/24 Chief Complaint: R posterolateral calf wound History of Wound: Jc Gross is a 78 y/o female who presents today for evaluation and management of a right posterolateral calf wound. She is accompanied to her appointment today by two family members. She is known to me from the vascular office where I have seen her for suspected venous insufficiency where I ordered venous reflux study which she is not scheduled to complete until 04/19. She reports that shortly after I saw her in the office in December, she developed this R calf wound. She thinks that she may have bumped this area of her leg. At home, she has been applying B&W ointment and other various herb salves without much improvement. She was started on some antibiotic by her PCP which she did not tolerate well, she cannot recall what antibiotic that was but she thinks shestill has the bottle at home. She recently was seen for this wound in urgent care 03/20 at which time cultures were obtained. She was empirically started on Amoxicillin 875mg BID x 14 days which she is tolerating so far. The cultures ultimately grew lerma- sensitive E. coli. She notes mild to moderate drainage from the wound. She denies any spreading erythema, foul odor, acutely worsened edema, N/V, F/C. She is not diabetic. She does not smoke. Medical history is otherwise significant for A-fib (chronically anticoagulated with Coumadin), sick sinus syndrome status post pacemaker placement (2008). Subjective Subjective Blister from last week has resolved, now small ulceration where it was which is superficial. Most superior ulceration in the cluster is making progress towards epithelialization; distal ulcers appear stable. 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 No N/V, F/C. Objective Data Objective Data Vital Signs: Vital Signs Temp Pulse Resp BP O2 Del Method 97.1 F L 74 14 117/56 L Room Air 08/17/24 13:03 08/17/24 13:03 08/17/24 13:03 08/17/24 13:03 08/10/24 13:12 Oxygen Delivery Method Room Air Charges/Coding Procedures Integumentary 111xxx-113xx: 79034 Jazzy musc/fascia 20 sq cm/< Physical Exam Const alert, oriented x3 and no apparent distress General Appearance: cooperative and comfortable HEENT normocephalic, hearing grossly normal bilaterally, external ears normal and external nose normal Eyes EOMs intact bilaterally General Eye: normal appearance of both eyes Neck General: normal visual inspection and trachea midline Resp normal respiratory effort, normal air movement, no retractions and no use of accessory muscles Effort and Inspection: able to speak in complete sentences Cardio regular rate and regular rhythm Extremity General Extremity: edema bilateral Peripheral Pulses: Yes dorsalis pedis pulses present Skin Wounds: wounds noted Wound Narrative: Right posterolateral calf wound remains healed. R anterior baird/ankle wound cluster, proximal portion is to the subcutaneous tissue, distal portion is to the connective tissue. Granulation tissue at the base, slough but no necrotic tissue. Increased erythema around the wound edges without focal edema, foul odor, significant drainage. Prior blister evolved to new, small, superficial ulceration at the inferior edge of the wound cluster; stable pinhole opening within the wound cluster in an area of previously intact skin. Stable/slightly improved erythema. Neuro oriented x3, CN's II-XII intact bilaterally, moves all extremities, no focal motor deficits and no sensory deficits noted Psych mental status grossly normal Attitude: calm and engaged Activity / Motor Behavior: appropriate eye contact Speech: normal speech Mood & Affect: euthymic mood Judgement: judgement good Debridement Note Debridement Note Wound debrided: Right anterior calf wound Laterality: Right Type of Debridement: Excisional debridement Anesthesia Used: 4% Lidocaine Solution and 5% Lidocaine Gel Depth: Down to and including healthy tissue and in the subcutaneous layer Percentage of wound debrided: 100 Instrument Used: 3mm curette Tissue Removed: slough, devitalized tissue Severity: Fat Layer Exposed Amount of bleeding with debridement: Mild Bleeding Controlled with: Pressure Patient tolerated procedure: Patient tolerated procedure well Post-Debridement Measurements and Additional Note: Post-Debridement Measurements/Treatment - Nurse 1 - General Ulcer Assessment Start: 08/10/24 13:10 Freq: Status: Active Protocol: [facility] Activity Type Activity Date Activity User E-sign Co-sign Detail Recorded Client Recorded Date Recorded By Document 08/10/24 13:12 KW [id number] 08/10/24 13:20 KW Document 08/17/24 13:03 KW [id number] 08/17/24 13:07 KW 08/10/24 08/17/24 13:12 13:03 - Today's Visit Information Type of service Follow-up Visit Follow-up Visit (Physician/HARDWARE TECHNICIAN (Physician/HARDWARE TECHNICIAN ) ) Arrival Mode Ambulatory Ambulatory Transfer Assistance None Accompanied by daughter Patient Identification Verified (Name & Yes Yes ) Patient Requires Transmission-Based No Precautions Vital Signs Temperature (97.8 F-99.1 F) 96.9 F L 97.1 F L Temperature Source Temporal Temporal Pulse Rate (60-100) 66 74 Pulse Location Monitor Monitor Respiratory Rate (12-18) 16 14 Respiratory rate source Observation Observation Oxygen Delivery Method Room Air Blood Pressure (90/60-120/80) 117/58 L 117/56 L Blood Pressure Mean (mm Hg) 77 76 Source Monitor Monitor Position Semi-Fowlers Sitting Blood Pressure Location Left Arm Right Arm History Since Last Visit- (Skip if this is Patient's initial visit) Have you changed medications since your No No last visit? Any new allergies or adverse reactions No No Had a fall/change in ADL's that may No No increase risk of falls Signs or symptoms of abuse and/or No No neglect since last visit Have you been in the hospital since your No No last visit? Has dressing in place as prescribed Yes Yes Has compression in place as prescribed Yes N/A Has offloadiing in place as prescribed N/A N/A Experienced any changes in pain level or No No management Left Footwear Regular Shoe Right Footwear Regular Shoe Pain Scale: 0-10 Numeric Is Patient Pain Free? Yes Yes WC - Nurse 1 - General Ulcer Measurement Start: 08/10/24 13:10 Freq: Status: Active Protocol: Activity Type Activity Date Activity User E-sign Co-sign Detail Recorded Client Recorded Date Recorded By Document 08/10/24 13:12 KW [id number] 08/10/24 13:20 KW Document 08/17/24 13:03 [id number] 08/17/24 13:07 KW 08/10/24 08/17/24 13:12 13:03 Wound Center Nurse 1 #2 Right inferior ankle CLUSTER -Current Size (cm) - Length 3.3 3.5 -Current Size (cm) - Width 1.3 1.5 -Current Size (cm) - Depth 0.4 0.3 -Total Square Cm 4.29 5.25 -Date of Last Picture (Recall this 08/10/24 field) -Epithelialization Medium 34-66% -Exudate Amt Small Medium -Exudate Type Serosanguineous Serosanguineous -Wound Margin Distinct, Distinct, Outline Outline Attached Attached -Granulation Amt Small (1-33%) Medium (34-66%) -Granulation Quality Red -Slough/Fibrin Yes -Necrosis Amt Large (67-100%) Medium (34-66%) -Necrotic Tissue Type Adherent Slough -Texture (Alpa-wound Skin Appearance) Assessed Assessed -Moisture (Alpa-wound Skin Appearance) Assessed Assessed -Color (Alpa-wound Skin Appearance) Assessed, Assessed Erythema -Temperature (Alpa-wound Skin No Abnormality No Abnormality Appearance) (Pt Warm) (Pt Warm) -Tenderness on Palpation (Alpa-wound Yes Yes Skin Appearance) -Ulcer Cleansing Rinsed/ Rinsed/ Irrigated with Irrigated with Saline Saline -Foul Odor after Cleansing No -Anesthetic Used 5% Lidocaine 4% Lidocaine Gel Solution Right Calf (cm) 34 Right Ankle (cm) 23.5 WC - Nurse 2 - General Ulcer CM Notes Start: 08/10/24 13:10 Freq: Status: Active Protocol: Activity Type Activity Date Activity User E-sign Co-sign Detail Recorded Client Recorded Date Recorded By Document 08/10/24 13:34 GM [id number] 08/10/24 13:41 GM Edit Result 08/10/24 13:34 GM (1) [id number] 08/10/24 13:43 GM Document 08/17/24 13:15 GM [id number] 08/17/24 13:22 GM (1) #2 Right inferior ankle CLUSTER - Clinical Debridement Subcutaneous => Muscle / Fascia - Tissue Removed Subcutaneous => Muscle - Debridement - Subq, 1st 20sq cm Yes => - Debridement - Muscle / Fascia, 1st => Yes 20sq cm 08/10/24 08/17/24 13:34 13:15 Wound Center Nurse 2 #2 Right inferior ankle CLUSTER -Time 13:34 13:19 -Correct Patient Yes Yes -Correct Side, Site, Position Yes Yes -Correct Procedure Yes Yes -Procedure Performed Yes Yes -Type of Procedure Debridement Debridement -Clinical Debridement Muscle / Fascia Subcutaneous -Tissue Removed Muscle Subcutaneous -Post Debridement (cm) - Length 3.0 3.3 -Post Debridement (cm) - Width 1.5 1.5 -Post Debridement (cm) - Depth 0.5 0.6 -Total Square (Post) (cm) 4.50 4.95 -Area of Debridement (cm) - Length 3.0 3.3 -Area of Debridement (cm) - Width 1.5 1.5 -Total Square (Area) (cm) 4.50 4.95 -Tunneling No No -Undermining/Tunneling No No -Circular Undermining No No -Wound/Ulcer Outcome Not Healed Not Healed -Ulcer Cleansing Rinsed/ Rinsed/ Irrigated with Irrigated with Saline Saline -Foul Odor after Cleansing No No -Bioengineered Tissue No No -Bleeding Controlled with Pressure Pressure -Treatment Response Procedure Procedure Tolerated Well Tolerated Well -Offloading No -Debridement - Subq, 1st 20sq cm Yes -Debridement - Muscle / Fascia, 1st Yes 20sq cm Pain Scale: 0-10 Numeric Is Patient Pain Free? Yes Yes WC - Nurse 3 - General Ulcer D/C NN Start: 08/10/24 13:10 Freq: Status: Active Protocol: Activity Type Activity Date Activity User E-sign Co-sign Detail Recorded Client Recorded Date Recorded By Document 08/10/24 13:59 KW [id number] 08/10/24 14:01 KW Document 08/17/24 13:34 ML [id number] 08/17/24 13:35 ML 08/10/24 08/17/24 13:59 13:34 Wound Care Center Nurse 3 #2 Right inferior ankle CLUSTER -Ulcer Cleansing Rinsed/ Irrigated with Saline -Primary Dressing Applied Promogran Promogran Amy Matter, Amy Matter Silicone Border Foam 4x4 -Promogran Amy Matter 1 2 -Silicone Border Foam 4x4 1 1 RLE -Tubular Bandage Single Layer -Size of Tubigrip Used Size E -Size E ($) 1 Pain Scale: 0-10 Numeric Is Patient Pain Free? Yes Yes Assessment/Plan Assessment/Plan (1) Venous insufficiency of both lower extremities: CODE(S): I87.2 - Venous insufficiency (chronic) (peripheral) (2) Ulcer of right ankle: CODE(S): L97.319 - Non-pressure chronic ulcer of right ankle with unspecified severity PLAN: ulcer of the right anterior ankle with to the muscle layer PLAN: Plan Obtained updated wound culture today. Continue current empiric antibiotic regimen. For wound care, will continue to apply lightly moistened Amy followed by kerlix wrap. She has very sensitive skin, will utilize silicone tape or tape only dressings and avoid taping skin. Change daily or more often as needed to keep clean and dry. With dressing changes, wash the area with antibacterial soapand water, pat gently to dry well. No submerging the wound in water such as to take a bath, go swimming, etc. Will continue medium strength single layer tubigrip for compression. She will return in 1 week. 08/17/24 1338 <Electronically signed by Zarina MUNGUIA> Cosigner Signature (if applicable): CC: ~ Signed [facility] Work Phone: [phone] 495-534903-20-2025 Progress note [facility] [address] [place] [address] Progress Note - Wound Care 08/17/24 1336 MR#: [id number] Acct: [id number] Name: JC GROSS Rep #:[id number] : 1945 79 From: Zarina MUNGUIA PCP: NILSA Macias Status:REG RCR Location: History of Present Illness Date of Service: 08/17/24 Chief Complaint: R posterolateral calf wound History of Wound: Jc Gross is a 78 y/o female who presents today for evaluation and management of a right posterolateral calf wound. She is accompanied to her appointment today by two familymembers. She is known to me from the vascular office where I have seen her for suspected venous insu fficiency where I ordered venous reflux study which she is not scheduled to complete until 04/19. She reports that shortly after I saw her in the office in December, she developed this R calf wound. She thinks that she may have bumped this area of her leg. At home, she has been applying B&W ointment and other various herb salves without much improvement. She was started on some antibiotic by her PCP which she did not tolerate well, she cannot recall what antibiotic that was but she thinks grecia hartman has the bottle at home. She recently was seen for this wound in urgent care 03/20 at which time cultures were obtained. She was empirically started on Amoxicillin 875mg BID x 14 days which sheis tolerating so far. The cultures ultimately grew lerma-sensitive E. coli. She notes mild to moderate drainage from the wound. She denies any spreading erythema, foul odor, acutely worsened edema, N/V, F/C. She is not diabetic. She does not smoke. Medical history is otherwise significant for A-fib (chronically anticoagulated with Coumadin), sick sinus syndrome status post pacemaker placement (2008). Subjective Subjective Blister from last week has resolved, now small ulceration where it was which is superficial. Most superior ulceration in the cluster is making progress towards epithelialization; distal ulcers appearstable. 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 No N/V,F/C. Objective Data Objective Data Vital Signs: Vital Signs Temp Pulse Resp BP O2 Del Method 97.1 F L 74 14 117/56 L Room Air 08/17/24 13:03 08/17/24 13:03 08/17/24 13:03 08/17/24 13:03 08/10/24 13:12 Oxygen Delivery Method Room Air Charges/Coding Procedures Integumentary 111xxx-113xx: 19231 Jazzy musc/fascia 20 sq cm/< Physical Exam Const alert, oriented x3 and no apparent distress General Appearance: cooperative and comfortable HEENT normocephalic, hearing grossly normal bilaterally, external ears normal and external nose normal Eyes EOMs intact bilaterally General Eye: normal appearance of both eyes Neck General: normal visual inspection and trachea midline Resp normal respiratory effort, normal air movement, no retractions and no use of accessory muscles Effort and Inspection: able to speak in complete sentences Cardio regular rate and regular rhythm Extremity General Extremity: edema bilateral Peripheral Pulses: Yes dorsalis pedis pulses present Skin Wounds: wounds noted Wound Narrative: Right posterolateral calf wound remains healed. R anterior baird/ankle wound cluster, proximal portion is to the subcutaneous tissue, distal portionis to the connective tissue. Granulation tissue at the base, slough but no necrotic tissue. Increased erythema around the wound edges without focal edema, foul odor, significant drainage. Prior blister evolved to new, small, superficial ulceration at the inferior edge of the wound cluster; stable pinhole opening within the wound cluster in an area of previously intact skin. Stable/slightly improved erythema. Neuro oriented x3, CN's II-XII intact bilaterally, moves all extremities, no focal motor deficits and no sensory deficits noted Psych mental status grossly normal Attitude: calm and engaged Activity / Motor Behavior: appropriate eye contact Speech: normal speech Mood & Affect: euthymic mood Judgement: judgement good Debridement Note Debridement Note Wound debrided: Right anterior calf wound Laterality: Right Type of Debridement: Excisional debridement Anesthesia Used: 4% Lidocaine Solution and 5% Lidocaine Gel Depth: Down to and including healthy tissue and in the subcutaneous layer Percentage of wound debrided: 100 Instrument Used: 3mm curette Tissue Removed: slough, devitalized tissue Severity: Fat Layer Exposed Amount of bleeding with debridement: Mild Bleeding Controlled with: Pressure Patient tolerated procedure: Patient tolerated procedure well Post-Debridement Measurements and Additional Note: Post-Debridement Measurements/Treatment - Nurse 1 - General Ulcer Assessment Start: 08/10/24 13:10 Freq: Status: Active Protocol: CELY.OSMEL Activity Type Activity Date Activity User E-sign Co-sign Detail Recorded Client Recorded Date Recorded By Document 08/10/24 13:12 [id number] 08/10/24 13:20 KW Document 08/17/24 13:03 PAULO [id number] 08/17/24 13:07 KW 08/10/24 08/17/24 13:12 13:03 - Today's Visit Information Type of service Follow-up Visit Follow-up Visit (Physician/HARDWARE TECHNICIAN (Physician/HARDWARE TECHNICIAN ) ) Arrival Mode Ambulatory Ambulatory Transfer Assistance None Accompanied by daughter Patient Identification Verified (Name & Yes Yes ) Patient Requires Transmission-Based No Precautions Vital Signs Temperature (97.8 F-99.1 F) 96.9 F L 97.1 F L Temperature Source Temporal Temporal Pulse Rate (60-100) 66 74 Pulse Location Monitor Monitor Respiratory Rate (12-18) 16 14 Respiratory rate source Observation Observation Oxygen Delivery Method Room Air Blood Pressure (90/60-120/80) 117/58 L 117/56 L Blood Pressure Mean (mm Hg) 77 76 Source Monitor Monitor Position Semi-Fowlers Sitting Blood Pressure Location Left Arm Right Arm History Since Last Visit- (Skip if this is Patient's initial visit) Have you changed medications since your No No last visit? Any new allergies or adverse reactions No No Had a fall/change in ADL's that may No No increase risk of falls Signs or symptoms of abuse and/or No No neglect since last visit Have you been in the hospital since your No No last visit? Has dressing in place as prescribed Yes Yes Has compression in place as prescribed Yes N/A Has offloadiing in place as prescribed N/A N/A Experienced any changes in pain level or No No management Left Footwear Regular Shoe Right Footwear Regular Shoe Pain Scale: 0-10 Numeric Is Patient Pain Free? Yes Yes WC - Nurse 1 - General Ulcer Measurement Start: 08/10/24 13:10 Freq: Status: Active Protocol: Activity Type Activity Date Activity User E-sign Co-sign Detail Recorded Client Recorded Date Recorded By Document 08/10/24 13:12 KW [id number] 08/10/24 13:20 KW Document 08/17/24 13:03 KW [id number] 08/17/24 13:07 KW 08/10/24 08/17/24 13:12 13:03 Wound Center Nurse 1 #2 Right inferior ankle CLUSTER -Current Size (cm) - Length 3.3 3.5 -Current Size (cm) - Width 1.3 1.5 -Current Size (cm) - Depth 0.4 0.3 -Total Square Cm 4.29 5.25 -Date of Last Picture (Recall this 08/10/24 field) -Epithelialization Medium 34-66% -Exudate Amt Small Medium -Exudate Type Serosanguineous Serosanguineous -Wound Margin Distinct, Distinct, Outline Outline Attached Attached -Granulation Amt Small (1-33%) Medium (34-66%) -Granulation Quality Red -Slough/Fibrin Yes -Necrosis Amt Large (67-100%) Medium (34-66%) -Necrotic Tissue Type Adherent Slough -Texture (Alpa-wound Skin Appearance) Assessed Assessed -Moisture (Alpa-wound Skin Appearance) Assessed Assessed -Color (Alpa-wound Skin Appearance) Assessed, Assessed Erythema -Temperature (Alpa-wound Skin No Abnormality No Abnormality Appearance) (Pt Warm) (Pt Warm) -Tenderness on Palpation (Alpa-wound Yes Yes Skin Appearance) -Ulcer Cleansing Rinsed/ Rinsed/ Irrigated with Irrigated with Saline Saline -Foul Odor after Cleansing No -Anesthetic Used 5% Lidocaine 4% Lidocaine Gel Solution Right Calf (cm) 34 Right Ankle (cm) 23.5 WC - Nurse 2 - General Ulcer CM Notes Start: 08/10/24 13:10 Freq: Status: Active Protocol: Activity Type Activity Date Activity User E-sign Co-sign Detail Recorded Client Recorded Date Recorded By Document 08/10/24 13:34 GM [id number] 08/10/24 13:41 GM Edit Result 08/10/24 13:34 GM (1) [id number] 08/10/24 13:43 GM Document 08/17/24 13:15 GM [id number] 08/17/24 13:22 GM (1) #2 Right inferior ankle CLUSTER - Clinical Debridement Subcutaneous => Muscle / Fascia - Tissue Removed Subcutaneous => Muscle - Debridement - Subq, 1st 20sq cm Yes => - Debridement - Muscle / Fascia, 1st => Yes 20sq cm 08/10/24 08/17/24 13:34 13:15 Wound Center Nurse 2 #2 Right inferior ankle CLUSTER -Time 13:34 13:19 -Correct Patient Yes Yes -Correct Side, Site, Position Yes Yes -Correct Procedure Yes Yes -Procedure Performed Yes Yes -Type of Procedure Debridement Debridement -Clinical Debridement Muscle / Fascia Subcutaneous -Tissue Removed Muscle Subcutaneous -Post Debridement (cm) - Length 3.0 3.3 -Post Debridement (cm) - Width 1.5 1.5 -Post Debridement (cm) - Depth 0.5 0.6 -Total Square (Post) (cm) 4.50 4.95 -Area of Debridement (cm) - Length 3.0 3.3 -Area of Debridement (cm) - Width 1.5 1.5 -Total Square (Area) (cm) 4.50 4.95 -Tunneling No No -Undermining/Tunneling No No -Circular Undermining No No -Wound/Ulcer Outcome Not Healed Not Healed -Ulcer Cleansing Rinsed/ Rinsed/ Irrigated with Irrigated with Saline Saline -Foul Odor after Cleansing No No -Bioengineered Tissue No No -Bleeding Controlled with Pressure Pressure -Treatment Response Procedure Procedure Tolerated Well Tolerated Well -Offloading No -Debridement - Subq, 1st 20sq cm Yes -Debridement - Muscle / Fascia, 1st Yes 20sq cm Pain Scale: 0-10 Numeric Is Patient Pain Free? Yes Yes WC - Nurse 3 - General Ulcer D/C NN Start: 08/10/24 13:10 Freq: Status: Active Protocol: Activity Type Activity Date Activity User E-sign Co-sign Detail Recorded Client Recorded Date Recorded By Document 08/10/24 13:59 KW [id number] 08/10/24 14:01 KW Document 08/17/24 13:34 ML [id number] 08/17/24 13:35 ML 08/10/24 08/17/24 13:59 13:34 Wound Care Center Nurse 3 #2 Right inferior ankle CLUSTER -Ulcer Cleansing Rinsed/ Irrigated with Saline -Primary Dressing Applied Promogran Promogran Amy Matter, Amy Matter Silicone Border Foam 4x4 -Promogran Amy Matter 1 2 -Silicone Border Foam 4x4 1 1 RLE -Tubular Bandage Single Layer -Size of Tubigrip Used Size E -Size E ($) 1 Pain Scale: 0-10 Numeric Is Patient Pain Free? Yes Yes Assessment/Plan Assessment/Plan (1) Venous insufficiency of both lower extremities: CODE(S): I87.2 - Venous insufficiency (chronic) (peripheral) (2) Ulcer of right ankle: CODE(S): L97.319 - Non-pressure chronic ulcer of right ankle with unspecified severity PLAN: ulcer of the right anterior ankle with to the muscle layer PLAN: Plan Obtained updated wound culture today. Continue current empiric antibiotic regimen. For wound care, will continue to apply lightly moistened Amy followed by kerlix wrap. She has very sensitive skin, will utilize silicone tape or tape only dressings and avoid taping skin. Change daily or more often as needed to keep clean and dry. With dressing changes, wash the area with antibacterial soapand water, pat gently to dry well. No submerging the wound in water such as to take a bath, go swimming, etc. Will continue medium strength single layer tubigrip for compression. She will return in 1 week. 08/17/24 1338 Cosigner Signature (if applicable): CC: ~ Signed [facility]03-16-2025 Progress note Author Zarina Fish [facility] Note Date/Time August 13, 2024 9:4 6am [facility] [address] [place] [address] Progress Note - Wound Care 08/10/24 1357 MR#: [id number] Acct: [id number] Name: JC GROSS Rep #:[id number] 1 : 1945 79 From: Zarina MUNGUIA PCP: NILSA Macias Status:REG RCR Location: History of Present Illness Date of Service: 08/10/24 Chief Complaint: R posterolateral calf wound History of Wound: Jc Gross is a 78 y/o female who presents today for evaluation and management of a right posterolateral calf wound. She is accompanied to her appointment today by two family members. She is known to me from the vascular office where I have seen her for suspected venous insufficiency where I ordered venous reflux study which she is not scheduled to complete until 04/19. She reports that shortly after I saw her in the office in December, she developed this R calf wound. She thinks that she may have bumped this area of her leg. At home, she has been applying B&W ointment and other various herb salves without much improvement. She was started on some antibiotic by her PCP which she did not tolerate well, she cannot recall what antibiotic that was but she thinks shestill has the bottle at home. She recently was seen for this wound in urgent care 03/20 at which time cultures were obtained. She was empirically started on Amoxicillin 875mg BID x 14 days which she is tolerating so far. The cultures ultimately grew lerma- sensitive E. coli. She notes mild to moderate drainage from the wound. She denies any spreading erythema, foul odor, acutely worsened edema, N/V, F/C. She is not diabetic. She does not smoke. Medical history is otherwise significant for A-fib (chronically anticoagulated with Coumadin), sick sinus syndrome status post pacemaker placement (2008). Subjective Subjective Jc has noticed a new blister near her wound and a new pin-hole opening in thearea of the wound as well. Maybe some increased redness. No N/V, F/C, or other constitutional symptoms. Objective Data Objective Data Vital Signs: Vital Signs Temp Pulse Resp BP O2 Del Method 96.9 F L 66 16 117/58 L Room Air 08/10/24 13:12 08/10/24 13:12 08/10/24 13:12 08/10/24 13:12 08/10/24 13:12 Oxygen Delivery Method Room Air Charges/Coding Procedures Integumentary 111xxx-113xx: 48228 Jazzy musc/fascia 20 sq cm/< Physical Exam Const alert, oriented x3 and no apparent distress General Appearance: cooperative and comfortable HEENT normocephalic, hearing grossly normal bilaterally, external ears normal and external nose normal Eyes EOMs intact bilaterally General Eye: normal appearance of both eyes Neck General: normal visual inspection and trachea midline Resp normal respiratory effort, normal air movement, no retractions and no use of accessory muscles Effort and Inspection: able to speak in complete sentences Cardio regular rate and regular rhythm Extremity General Extremity: edema bilateral Peripheral Pulses: Yes dorsalis pedis pulses present Skin Wounds: wounds noted Wound Narrative: Right posterolateral calf wound remains healed. R anterior baird/ankle wound cluster, proximal portion is to the subcutaneous tissue, distal portion is to the connective tissue. Granulation tissue at the base, slough but no necrotic tissue. Increased erythema around the wound edges without focal edema, foul odor, significant drainage. There is a blister on the edge of the inferior portion of the wound; there is a new pinhole opening withinthe wound cluster in an area of previously intact skin. Neuro oriented x3, CN's II-XII intact bilaterally, moves all extremities, no focal motor deficits and no sensory deficits noted Psych mental status grossly normal Attitude: calm and engaged Activity / Motor Behavior: appropriate eye contact Speech: normal speech Mood & Affect: euthymic mood Judgement: judgement good Debridement Note Debridement Note Wound debrided: Right anterior calf wound Laterality: Right Type of Debridement: Excisional debridement Anesthesia Used: 4% Lidocaine Solution and 5% Lidocaine Gel Depth: Down to and including healthy tissue and in the subcutaneous layer Percentage of wound debrided: 100 Instrument Used: 3mm curette Tissue Removed: slough, devitalized tissue Severity: Fat Layer Exposed Amount of bleeding with debridement: Mild Bleeding Controlled with: Pressure Patient tolerated procedure: Patient tolerated procedure well Post-Debridement Measurements and Additional Note: Post-Debridement Measurements/Treatment - Nurse 1 - General Ulcer Assessment Start: 08/10/24 13:10 Freq: Status: Active Protocol: JAIME Activity Type Activity Date Activity User E-sign Co-sign Detail Recorded Client Recorded Date Recorded By Document 08/10/24 13:12 KW [id number] 08/10/24 13:20 08/10/24 13:12 - Today's Visit Information Type of service Follow-up Visit (Physician/HARDWARE TECHNICIAN ) Arrival Mode Ambulatory Accompanied by daughter Patient Identification Verified (Name & Yes ) Vital Signs Temperature (97.8 F-99.1 F) 96.9 F L Temperature Source Temporal Pulse Rate (60-100) 66 Pulse Location Monitor Respiratory Rate (12-18) 16 Respiratory rate source Observation Oxygen Delivery Method Room Air Blood Pressure (90/60-120/80) 117/58 L Blood Pressure Mean (mm Hg) 77 Source Monitor Position Semi-Fowlers Blood Pressure Location Left Arm History Since Last Visit- (Skip if this is Patient's initial visit) Have you changed medications since your No last visit? Any new allergies or adverse reactions No Had a fall/change in ADL's that may No increase risk of falls Signs or symptoms of abuse and/or No neglect since last visit Have you been in the hospital since your No last visit? Has dressing in place as prescribed Yes Has compression in place as prescribed Yes Has offloadiing in place as prescribed N/A Experienced any changes in pain level or No management Left Footwear Regular Shoe Right Footwear Regular Shoe Pain Scale: 0-10 Numeric Is Patient Pain Free? Yes [facility] Nurse 1 - General Ulcer Measurement Start: 08/10/24 13:10 Freq: Status: Active Protocol: Activity Type Activity Date Activity User E-sign Co-sign Detail Recorded Client Recorded Date Recorded By Document 08/10/24 13:12 KW [id number] 08/10/24 13:20 08/10/24 13:12 Wound Center Nurse 1 #2 Right inferior ankle CLUSTER -Current Size (cm) - Length 3.3 -Current Size (cm) - Width 1.3 -Current Size (cm) - Depth 0.4 -Total Square Cm 4.29 -Date of Last Picture (Recall this 08/10/24 field) -Exudate Amt Small -Exudate Type Serosanguineous -Wound Margin Distinct, Outline Attached -Granulation Amt Small (1-33%) -Granulation Quality Red -Necrosis Amt Large (67-100%) -Necrotic Tissue Type Adherent Slough -Texture (Alpa-wound Skin Appearance) Assessed -Moisture (Alpa-wound Skin Appearance) Assessed -Color (Alpa-wound Skin Appearance) Assessed, Erythema -Temperature (Alpa-wound Skin No Abnormality Appearance) (Pt Warm) -Tenderness on Palpation (Alpa-wound Yes Skin Appearance) -Ulcer Cleansing Rinsed/ Irrigated with Saline -Anesthetic Used 5% Lidocaine Gel Right Calf (cm) 34 Right Ankle (cm) 23.5 WC - Nurse 2 - General Ulcer CM Notes Start: 08/10/24 13:10 Freq: Status: Active Protocol: Activity Type Activity Date Activity User E-sign Co-sign Detail Recorded Client Recorded Date Recorded By Document 08/10/24 13:34 GM [id number] 08/10/24 13:41 GM Edit Result 08/10/24 13:34 GM (1) [id number] 08/10/24 13:43 GM (1) #2 Right inferior ankle CLUSTER - Clinical Debridement Subcutaneous => Muscle / Fascia - Tissue Removed Subcutaneous => Muscle - Debridement - Subq, 1st 20sq cm Yes => - Debridement - Muscle / Fascia, 1st => Yes 20sq cm 08/10/24 13:34 Wound Center Nurse 2 #2 Right inferior ankle CLUSTER -Time 13:34 -Correct Patient Yes -Correct Side, Site, Position Yes -Correct Procedure Yes -Procedure Performed Yes -Type of Procedure Debridement -Clinical Debridement Muscle / Fascia -Tissue Removed Muscle -Post Debridement (cm) - Length 3.0 -Post Debridement (cm) - Width 1.5 -Post Debridement (cm) - Depth 0.5 -Total Square (Post) (cm) 4.50 -Area of Debridement (cm) - Length 3.0 -Area of Debridement (cm) - Width 1.5 -Total Square (Area) (cm) 4.50 -Tunneling No -Undermining/Tunneling No -Circular Undermining No -Wound/Ulcer Outcome Not Healed -Ulcer Cleansing Rinsed/ Irrigated with Saline -Foul Odor after Cleansing No -Bioengineered Tissue No -Bleeding Controlled with Pressure -Treatment Response Procedure Tolerated Well -Offloading No -Debridement - Muscle / Fascia, 1st Yes 20sq cm Pain Scale: 0-10 Numeric Is Patient Pain Free? Yes Assessment/Plan Assessment/Plan (1) Venous insufficiency of both lower extremities: CODE(S): I87.2 - Venous insufficiency (chronic) (peripheral) (2) Ulcer of right ankle: CODE(S): L97.319 - Non-pressure chronic ulcer of right ankle with unspecified severity PLAN: ulcer of the right anterior ankle with to the muscle layer PLAN: Plan WIth new pinhole opening, blister, and some increased erythema I am concerned for recurrent infection. Will prescribed another course of cefuroxime; will add doxycycline for good bone penetration in case of osteo given the chronicity/recurrence of the infectious symptoms though XR/CT not suggestive of osteo, unable to perform MRI which would be diagnostic. For wound care, will continue to apply lightly moistened Amy followed by kerlix wrap. She has very sensitive skin, will utilize silicone tape or tape only dressings and avoid taping skin. Change daily or more often as needed to keep clean and dry. With dressing changes, wash the area with antibacterial soapand water, pat gently to dry well. No submerging the wound in water such as to take a bath, go swimming, etc. Will continue medium strength single layer tubigrip for compression. She will return in 1 week. 08/13/24 0946 <Electronically signed by Zarina MUNGUIA> Cosigner Signature (if applicable): CC: ~ Signed [facility] Work Phone: [phone] Progress note [facility] [address] [place] [address] Progress Note - Wound Care 08/10/24 1357 MR#: [id number] Acct: [id number] Name: JC GROSS Rep #:[id number] 1 : 1945 79 From: Zarina MUNGUIA PCP: NILSA Macias Status:REG RCR Location: History of Present Illness Date of Service: 08/10/24 Chief Complaint: R posterolateral calf wound History of Wound: Jc Gross is a 78 y/o female who presents today for evaluation and management of a right posterolateral calf wound. She is accompanied to her appointment today by two familymembers. She is known to me from the vascular office where I have seen her for suspected venous insu fficiency where I ordered venous reflux study which she is not scheduled to complete until 04/19. She reports that shortly after I saw her in the office in December, she developed this R calf wound. She thinks that she may have bumped this area of her leg. At home, she has been applying B&W ointment and other various herb salves without much improvement. She was started on some antibiotic by her PCP which she did not tolerate well, she cannot recall what antibiotic that was but she thinks grecia hartman has the bottle at home. She recently was seen for this wound in urgent care 03/20 at which time cultures were obtained. She was empirically started on Amoxicillin 875mg BID x 14 days which sheis tolerating so far. The cultures ultimately grew lerma-sensitive E. coli. She notes mild to moderate drainage from the wound. She denies any spreading erythema, foul odor, acutely worsened edema, N/V, F/C. She is not diabetic. She does not smoke. Medical history is otherwise significant for A-fib (chronically anticoagulated with Coumadin), sick sinus syndrome status post pacemaker placement (2008). Subjective Subjective Jc has noticed a new blister near her wound and a new pin-hole opening in thearea of the wound as well. Maybe some increased redness. No N/V, F/C, or other constitutional symptoms. Objective Data Objective Data Vital Signs: Vital Signs Temp Pulse Resp BP O2 Del Method 96.9 F L 66 16 117/58 L Room Air 08/10/24 13:12 08/10/24 13:12 08/10/24 13:12 08/10/24 13:12 08/10/24 13:12 Oxygen Delivery Method Room Air Charges/Coding Procedures Integumentary 111xxx-113xx: 00699 Jazzy musc/fascia 20 sq cm/< Physical Exam Const alert, oriented x3 and no apparent distress General Appearance: cooperative and comfortable HEENT normocephalic, hearing grossly normal bilaterally, external ears normal and external nose normal Eyes EOMs intact bilaterally General Eye: normal appearance of both eyes Neck General: normal visual inspection and trachea midline Resp normal respiratory effort, normal air movement, no retractions and no use of accessory muscles Effort and Inspection: able to speak in complete sentences Cardio regular rate and regular rhythm Extremity General Extremity: edema bilateral Peripheral Pulses: Yes dorsalis pedis pulses present Skin Wounds: wounds noted Wound Narrative: Right posterolateral calf wound remains healed. R anterior baird/ankle wound cluster, proximal portion is to the subcutaneous tissue, distal portionis to the connective tissue. Granulation tissue at the base, slough but no necrotic tissue. Increased erythema around the wound edges without focal edema, foul odor, significant drainage. There is a blister on the edge of the inferior portion of the wound; there is a new pinhole opening withinthe wound cluster in an area of previously intact skin. Neuro oriented x3, CN's II-XII intact bilaterally, moves all extremities, no focal motor deficits and no sensory deficits noted Psych mental status grossly normal Attitude: calm and engaged Activity / Motor Behavior: appropriate eye contact Speech: normal speech Mood & Affect: euthymic mood Judgement: judgement good Debridement Note Debridement Note Wound debrided: Right anterior calf wound Laterality: Right Type of Debridement: Excisional debridement Anesthesia Used: 4% Lidocaine Solution and 5% Lidocaine Gel Depth: Down to and including healthy tissue and in the subcutaneous layer Percentage of wound debrided: 100 Instrument Used: 3mm curette Tissue Removed: slough, devitalized tissue Severity: Fat Layer Exposed Amount of bleeding with debridement: Mild Bleeding Controlled with: Pressure Patient tolerated procedure: Patient tolerated procedure well Post-Debridement Measurements and Additional Note: Post-Debridement Measurements/Treatment - Nurse 1 - General Ulcer Assessment Start: 08/10/24 13:10 Freq: Status: Active Protocol: JAIME Activity Type Activity Date Activity User E-sign Co-sign Detail Recorded Client Recorded Date Recorded By Document 08/10/24 13:12 PAULO [id number] 08/10/24 13:20 KW 08/10/24 13:12 - Today's Visit Information Type of service Follow-up Visit (Physician/HARDWARE TECHNICIAN ) Arrival Mode Ambulatory Accompanied by daughter Patient Identification Verified (Name & Yes ) Vital Signs Temperature (97.8 F-99.1 F) 96.9 F L Temperature Source Temporal Pulse Rate (60-100) 66 Pulse Location Monitor Respiratory Rate (12-18) 16 Respiratory rate source Observation Oxygen Delivery Method Room Air Blood Pressure (90/60-120/80) 117/58 L Blood Pressure Mean (mm Hg) 77 Source Monitor Position Semi-Fowlers Blood Pressure Location Left Arm History Since Last Visit- (Skip if this is Patient's initial visit) Have you changed medications since your No last visit? Any new allergies or adverse reactions No Had a fall/change in ADL's that may No increase risk of falls Signs or symptoms of abuse and/or No neglect since last visit Have you been in the hospital since your No last visit? Has dressing in place as prescribed Yes Has compression in place as prescribed Yes Has offloadiing in place as prescribed N/A Experienced any changes in pain level or No management Left Footwear Regular Shoe Right Footwear Regular Shoe Pain Scale: 0-10 Numeric Is Patient Pain Free? Yes WC - Nurse 1 - General Ulcer Measurement Start: 08/10/24 13:10 Freq: Status: Active Protocol: Activity Type Activity Date Activity User E-sign Co-sign Detail Recorded Client Recorded Date Recorded By Document 08/10/24 13:12 KW [id number] 08/10/24 13:20 KW 08/10/24 13:12 Wound Center Nurse 1 #2 Right inferior ankle CLUSTER -Current Size (cm) - Length 3.3 -Current Size (cm) - Width 1.3 -Current Size (cm) - Depth 0.4 -Total Square Cm 4.29 -Date of Last Picture (Recall this 08/10/24 field) -Exudate Amt Small -Exudate Type Serosanguineous -Wound Margin Distinct, Outline Attached -Granulation Amt Small (1-33%) -Granulation Quality Red -Necrosis Amt Large (67-100%) -Necrotic Tissue Type Adherent Slough -Texture (Alpa-wound Skin Appearance) Assessed -Moisture (Alpa-wound Skin Appearance) Assessed -Color (Alpa-wound Skin Appearance) Assessed, Erythema -Temperature (Alpa-wound Skin No Abnormality Appearance) (Pt Warm) -Tenderness on Palpation (Alpa-wound Yes Skin Appearance) -Ulcer Cleansing Rinsed/ Irrigated with Saline -Anesthetic Used 5% Lidocaine Gel Right Calf (cm) 34 Right Ankle (cm) 23.5 WC - Nurse 2 - General Ulcer CM Notes Start: 08/10/24 13:10 Freq: Status: Active Protocol: Activity Type Activity Date Activity User E-sign Co-sign Detail Recorded Client Recorded Date Recorded By Document 08/10/24 13:34 GM [id number] 08/10/24 13:41 GM Edit Result 08/10/24 13:34 GM (1) [id number] 08/10/24 13:43 GM (1) #2 Right inferior ankle CLUSTER - Clinical Debridement Subcutaneous => Muscle / Fascia - Tissue Removed Subcutaneous => Muscle - Debridement - Subq, 1st 20sq cm Yes => - Debridement - Muscle / Fascia, 1st => Yes 20sq cm 08/10/24 13:34 Wound Center Nurse 2 #2 Right inferior ankle CLUSTER -Time 13:34 -Correct Patient Yes -Correct Side, Site, Position Yes -Correct Procedure Yes -Procedure Performed Yes -Type of Procedure Debridement -Clinical Debridement Muscle / Fascia -Tissue Removed Muscle -Post Debridement (cm) - Length 3.0 -Post Debridement (cm) - Width 1.5 -Post Debridement (cm) - Depth 0.5 -Total Square (Post) (cm) 4.50 -Area of Debridement (cm) - Length 3.0 -Area of Debridement (cm) - Width 1.5 -Total Square (Area) (cm) 4.50 -Tunneling No -Undermining/Tunneling No -Circular Undermining No -Wound/Ulcer Outcome Not Healed -Ulcer Cleansing Rinsed/ Irrigated with Saline -Foul Odor after Cleansing No -Bioengineered Tissue No -Bleeding Controlled with Pressure -Treatment Response Procedure Tolerated Well -Offloading No -Debridement - Muscle / Fascia, 1st Yes 20sq cm Pain Scale: 0-10 Numeric Is Patient Pain Free? Yes Assessment/Plan Assessment/Plan (1) Venous insufficiency of both lower extremities: CODE(S): I87.2 - Venous insufficiency (chronic) (peripheral) (2) Ulcer of right ankle: CODE(S): L97.319 - Non-pressure chronic ulcer of right ankle with unspecified severity PLAN: ulcer of the right anterior ankle with to the muscle layer PLAN: Plan WIth new pinhole opening, blister, and some increased erythema I am concerned for recurrent infection. Will prescribed another course of cefuroxime; will add doxycycline for good bone penetration in case of osteo given the chronicity/recurrence of the infectious symptoms though XR/CT not suggestiveof osteo, unable to perform MRI which would be diagnostic. For wound care, will continue to apply lightly moistened Amy followed by kerlix wrap. She has very sensitive skin, will utilize silicone tape or tape only dressings and avoid taping skin. Change daily or more often as needed to keep clean and dry. With dressing changes, wash the area with antibacterial soapand water, pat gently to dry well. No submerging the wound in water such as to take a bath, go swimming, etc. Will continue medium strength single layer tubigrip for compression. She will return in 1 week. 08/13/24 [id number] Cosigner Signature (if applicable): CC: ~ Signed [facility]02-27-2025 Evaluation note* Diagnosis Onset Date Resolution Status Admit Date Cellulitis of right lower leg acute July 27, 2024 1:00pm Ulcer of right ankle acute Febr uary 2024 1:00pm Ulcer of right lower extremity acute July 27, 2024 1:00pm Venous insufficiency of both lower extremities acute July 27, 2024 1:00pm Ulcer of right ankle acute Mario h 2024 1:00pm Venous insufficiency of both lower extremities acute August 17 1:00pm Nonischemic cardiomyopathy chronic August 30, 2024 10:01am Paroxysmal atrial fibrillation chron ic August 30, 2024 10:01am Presence of permanent cardia c pacemaker 2008August 30, 2024 10:01am Mobitz type 2 second degree atrioventricular block august 10:07am Nonischemic cardiomyopathy chronic August 30, 2024 10:07am Paroxysmal atrial fibrillation chron ic August 30, 2024 10:07am Presence of permanent cardia c pacemaker 2008August 30, 2024 10:07am Sick sinus syndrome due to S A node dysfunction chronic August 30, 2024 10:07am Ulcer of right ankle acute Apri l 2024 1:15pm Venous insufficiency of both lower extremities acute September 14 1:15pm Ulcer of right ankle acute October 26, 2024 1:15pm Venous insufficiency of both lower extremities acute October 26, 2024 1:15pm [facility] Work Phone: [phone] 548-292212-19-2024 Evaluation note* Diagnosis Onset Date Resolution Status Admit Date Ulcer of right lower extremity acute May 18, 2024 1:00pm Venous insufficiency of both lower extremities acute May 18, 2024 1:00pm Ulcer of right ankle acute Eitan pasquale 2024 1:00pm Ulcer of right lower extremity acute June 22, 2024 1:00pm Venous insufficiency of both lower extremities acute June 22, 2024 1:00pm Cellulitis of right lower leg acute July 27, 2024 1:00pm Ulcer of right ankle acute Febr uary 2024 1:00pm Ulcer of right lower extremity acute July 27, 2024 1:00pm Venous insufficiency of both lower extremities acute July 27, 2024 1:00pm Ulcer of right ankle acute Mario 2024 1:00pm Venous insufficiency of both lower extremities acute August 17 1:00pm [facility] Work Phone: Evaluation + Plan note Future Appointments Appointment Date:06/09/2022 01:30:00 PM Scheduled Provider:LOU BURTON Location:[facility] Appointment Type:PC OV Follow Up Future Scheduled Tests Laboratory* Amylase Level 05/18/22 * Helicobacter Pylori Antibody 05/18/22 * Lipase Level 05/18/22 * Carbohydrate Antigen 19-9 05/18/22 * Complete Blood Count 05/18/22 * Complete Metabolic Panel 05/18/22 [facility] evaluation noteNo assessment information available [facility] Work Phone: evaluiujet note* Diagnosis Onset Date Resolution Status 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 Nonischemic cardiomyopathy c hronic Paroxysmal atrial fibrillation chronic Presence of permanent cardiac pacemaker 2009 chronic Chronic systolic (congestive) heart failure chronic 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 Paroxysmal atrial fibrillation chronic Presence of permanent cardiac pacemaker 2009 chronic Sick sinus syndrome due to SA node dysfunction [facility] Work Phone: Evaluation note* Diagnosis Onset Date Resolution Status Cardiac murmur acute Chest pain acute Chronic systolic (congestive) heart failure chronic Nonischemic cardiomyopathy c hronic Paroxysmal atrial fibrillation chronic Presence of permanent cardiac pacemaker 2009 chronic Chronic systolic (congestive) heart failure chronic 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 Nonischemic cardiomyopathy c hronic Paroxysmal atrial fibrillation chronic Presence of permanent cardiac pacemaker 2008 chronic Sick sinus syndrome due to SA node dysfunction [facility] Work Phone: Evaluation note* Diagnosis Onset Date Resolution Status Abdominal pain acute [facility] Work Phone: Evaluation note* Diagnosis Onset Date Resolution Status Abdominal pain acute Gall bladder disease acute Chronic systolic (congestive) heart failure chronic 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 Nonischemic cardiomyopathy c hronic Paroxysmal atrial fibrillation chronic Presence of permanent cardiac pacemaker 2009 chronic Sick sinus syndrome due to SA node dysfunction chronic Preop cardiovascular exam ac [place] Nonischemic cardiomyopathy c hronic Presence of permanent cardiac pacemaker 2009 chronic [facility] Work Phone: Evaluation note* Diagnosis Onset Date Resolution Status Gall bladder disease acute Chronic systolic (congestive) heart failure chronic 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 Nonischemic cardiomyopathy c hronic Paroxysmal atrial fibrillation chronic Presence of permanent cardiac pacemaker 2009 chronic Sick sinus syndrome due to SA node dysfunction chronic Preop cardiovascular exam ac [place] Nonischemic cardiomyopathy c hronic Presence of permanent cardiac pacemaker 2009 chronic [facility] Work Phone: Evaluation note* Diagnosis Onset Date Resolution Status Gall bladder disease acute Chronic systolic (congestive) heart failure chronic 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 Nonischemic cardiomyopathy c hronic Paroxysmal atrial fibrillation chronic Presence of permanent cardiac pacemaker 2009 chronic Sick sinus syndrome due to SA node dysfunction chronic Preop cardiovascular exam ac [place] Nonischemic cardiomyopathy c hronic Presence of permanent cardiac pacemaker 2009 chronic 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 Paroxysmal atrial fibrillation chronic Presence of permanent cardiac pacemaker 2009 chronic Sick sinus syndrome due to SA node dysfunction [facility] Work Phone: Evaluation note* Diagnosis Onset Date Resolution Status 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 Paroxysmal atrial fibrillation chronic Presence of permanent cardiac pacemaker 2009 chronic Sick sinus syndrome due to SA node dysfunction [facility] Work Phone: Evaluation note* Diagnosis Onset Date Resolution Status Chronic systolic (congestive) heart failure chronic 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 Nonischemic cardiomyopathy c hronic Paroxysmal atrial fibrillation chronic Presence of permanent cardiac pacemaker 2009 chronic Sick sinus syndrome due to SA node dysfunction [facility] Work Phone: Evaluation note* Diagnosis Onset Date Resolution Status Chronic systolic (congestive) heart failure chronic 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 Nonischemic cardiomyopathy c hronic Paroxysmal atrial fibrillation chronic Presence of permanent cardiac pacemaker 2009 chronic Sick sinus syndrome due to SA node dysfunction chronic Chronic systolic (congestive) heart failure chronic 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 Nonischemic cardiomyopathy c hronic Paroxysmal atrial fibrillation chronic Presence of permanent cardiac pacemaker 2008 chronic Sick sinus syndrome due to SA node dysfunction chronic Nonischemic cardiomyopathy c hronic Presence of permanent cardiac pacemaker 2008 [facility] Work Phone: Hospital course Narrative No data available for this section [facility] Hospital Discharge instructions No data available for this section [facility] Progress note No data available for this section [facility] Reason for referral (narrative)No reason for referral [facility]: Summary Purpose Family History No Family History Records Found Relationship Condition Age at Onset Recorded Date/T biju brother Sudden cardiac Unknown brother Myocardial infarction 40 Cardiac disease Unknown sister Hypertension Unknown Advance Directives No Advanced Directives Records Found Advance Directive Response Recorded Date/ Time Advance Directives No June 02, 2016 12:30am Living Will No January 03, 2018 10:45am Power of Sheepskin Pickler No January 03 10:45am Advance Directive Response Recorded Date/ Time Advance Directives No June 01, 2016 11:30pm Living Will No January 03, 2018 9:45am Power of Sheepskin Pickler No January 03 9:45am Advance Directive Response Recorded Date/ Time Advance Directives on File Yes September 13, 2023 11:03am Name of Medical Power of Sheepskin Pickler Edmundo Palmer kailash September 13, 2023 11:03am Advance Directives Yes September 12, 024 11:03am Living Will Yes September 13, 2023 11:03am Power of Sheepskin Pickler Yes September 12 11:03am Advance Directive Response Recorded Date/ Time Living Will Yes January 11 11:52am Do you have a Healthcare Power of Sheepskin Pickler? Yes January 12, 2024 11:52am Living Will Yes April 30 12:14am Do you have a Healthcare Power of Sheepskin Pickler? Yes April 30, 2024 12:14am Living Will Yes April 30 1:21am Do you have a Healthcare Power of Sheepskin Pickler? Yes April 30, 2024 1:21am Living Will Yes May 31 1:14am Do you have a Healthcare Power of Sheepskin Pickler? Yes May 31, 2024 1:14am Living Will Yes July 01 1:42am Do you have a Healthcare Power of Sheepskin Pickler? Yes July 01, 2024 1:42am Living Will Yes July 29, 2024 1:37am Do you have a Healthcare Power of Sheepskin Pickler? Yes July 29, 2024 1:37am Living Will Yes May 31 5:18am Do you have a Healthcare Power of Sheepskin Pickler? Yes May 31, 2024 5:18am Living Will Yes July 01 2:26am Do you have a Healthcare Power of Sheepskin Pickler? Yes July 01, 2024 2:26am Living Will Yes July 29, 2024 4:57am Do you have a Healthcare Power of Sheepskin Pickler? Yes July 29, 2024 4:57am Advance Directives Yes September 12, 11:03am Advance Directive Response Recorded Date/ Time Living Will Yes January 11 11:52am Do you have a Healthcare Power of Sheepskin Pickler? Yes January 12, 2024 11:52am Living Will Yes July 01 1:42am Do you have a Healthcare Power of Sheepskin Pickler? Yes July 01, 2024 1:42am Living Will Yes July 29, 2024 1:37am Do you have a Healthcare Power of Sheepskin Pickler? Yes July 29, 2024 1:37am Living Will Yes August 28, 2024 10:00pm Do you have a Healthcare Power of Sheepskin Pickler? Yes August 28, 2024 10:00pm Living Will Yes August 29, 2024 12:13am Do you have a Healthcare Power of Sheepskin Pickler? Yes August 29, 2024 12:13am Living Will Yes September 27, 2024 8:51pm Do you have a Healthcare Power of Sheepskin Pickler? Yes September 27, 2024 8:51pm Living Will Yes September 28, 2024 12 :08am Do you have a Healthcare Power of Sheepskin Pickler? Yes September 28, 2024 12:08am Living Will Yes May 31 5:18am Do you have a Healthcare Power of Sheepskin Pickler? Yes May 31, 2024 5:18am Living Will Yes July 01 2:26am Do you have a Healthcare Power of Sheepskin Pickler? Yes July 01, 2024 2:26am Living Will Yes July 29, 2024 4:57am Do you have a Healthcare Power of Sheepskin Pickler? Yes July 29, 2024 4:57am Advance Directives Yes September 12, 11:03am Chief Complaint and Reason for Visit Chief Complaint S/O S/O S/O S/O Chief Complaint S/O S/O S/O 6 MO CK/ MMM 9:00 S/O Reason for Visit Mobitz type 2 second degree atrioventricular block Nonischemic cardiomyopathy Paroxysmal atrial fibrillation Presence of permanent cardiac pacemaker Chronic systolic (congestive) heart failure Mobitz type 2 second degree atrioventricular block Paroxysmal atrial fibrillation Presence of permanent cardiac pacemaker Sick sinus syndrome due to SA node dysfunction Chief Complaint S/O S/O 6 MO CK/ MMM 9:00 S/O S/O Reason for Visit Mobitz type 2 second degree atrioventricular block Nonischemic cardiomyopathy Paroxysmal atrial fibrillation Presence of permanent cardiac pacemaker Chronic systolic (congestive) heart failure Mobitz type 2 second degree atrioventricular block Paroxysmal atrial fibrillation Presence of permanent cardiac pacemaker Sick sinus syndrome due to SA node dysfunction Chief Complaint S/O 6 MO CK/ MMM 9:00 S/O S/O S/O Reason for Visit Mobitz type 2 second degree atrioventricular block Nonischemic cardiomyopathy Paroxysmal atrial fibrillation Presence of permanent cardiac pacemaker Chronic systolic (congestive) heart failure Mobitz type 2 second degree atrioventricular block Paroxysmal atrial fibrillation Presence of permanent cardiac pacemaker Sick sinus syndrome due to SA node dysfunction Chief Complaint S/O S/O S/O 6 MO F/U / DANYELL 8:30 6 MO CK / MMM 9:00 CHEST PAIN S/O Reason for Visit Cardiac murmur Chest pain Chronic systolic (congestive) heart failure Nonischemic cardiomyopathy Paroxysmal atrial fibrillation Presence of permanent cardiac pacemaker Chronic systolic (congestive) heart failure Mobitz type 2 second degree atrioventricular block Nonischemic cardiomyopathy Paroxysmal atrial fibrillation Presence of permanent cardiac pacemaker Sick sinus syndrome due to SA node dysfunction Chief Complaint S/O 6 MO F/U / DANYELL 8:30 6 MO CK / MMM 9:00 CHEST PAIN S/O S/O Reason for Visit Cardiac murmur Chest pain Chronic systolic (congestive) heart failure Nonischemic cardiomyopathy Paroxysmal atrial fibrillation Presence of permanent cardiac pacemaker Chronic systolic (congestive) heart failure Mobitz type 2 second degree atrioventricular block Nonischemic cardiomyopathy Paroxysmal atrial fibrillation Presence of permanent cardiac pacemaker Sick sinus syndrome due to SA node dysfunction Chief Complaint CHEST PAIN S/O S/O S/O Chief Complaint CHEST PAIN S/O S/O S/O Consult E-ORDER Reason for Visit Abdominal pain Chief Complaint S/O S/O Consult E-ORDER S/O Reason for Visit Abdominal pain Chief Complaint S/O S/O Consult E-ORDER S/O ABDOMINAL PAIN Reason for Visit Abdominal pain Chief Complaint S/O S/O Consult E-ORDER S/O ABDOMINAL PAIN ABDOMINAL PAIN S/O Reason for Visit Abdominal pain Chief Complaint S/O Consult E-ORDER S/O ABDOMINAL PAIN ABDOMINAL PAIN S/O Gall Bladder Issues Disease of gallbladder, unspecified 6 MO CK / STACK ATTENDANT 10:00 1 YR F/U / DANYELL 9:30 S/O Reason for Visit Abdominal pain Gall bladder disease Chronic systolic (congestive) heart failure Mobitz type 2 second degree atrioventricular block Nonischemic cardiomyopathy Paroxysmal atrial fibrillation Presence of permanent cardiac pacemaker Sick sinus syndrome due to SA node dysfunction Preop cardiovascular exam Nonischemic cardiomyopathy Presence of permanent cardiac pacemaker Chief Complaint Consult E-ORDER S/O ABDOMINAL PAIN ABDOMINAL PAIN S/O Gall Bladder Issues Disease of gallbladder, unspecified 6 MO CK / STACK ATTENDANT 10:00 1 YR F/U / DANYELL 9:30 S/O S/O Reason for Visit Abdominal pain Gall bladder disease Chronic systolic (congestive) heart failure Mobitz type 2 second degree atrioventricular block Nonischemic cardiomyopathy Paroxysmal atrial fibrillation Presence of permanent cardiac pacemaker Sick sinus syndrome due to SA node dysfunction Preop cardiovascular exam Nonischemic cardiomyopathy Presence of permanent cardiac pacemaker Chief Complaint ABDOMINAL PAIN ABDOMINAL PAIN S/O Gall Bladder Issues Disease of gallbladder, unspecified 6 MO CK / STACK ATTENDANT 10:00 1 YR F/U / DANYELL 9:30 S/O S/O S/O Reason for Visit Gall bladder disease Chronic systolic (congestive) heart failure Mobitz type 2 second degree atrioventricular block Nonischemic cardiomyopathy Paroxysmal atrial fibrillation Presence of permanent cardiac pacemaker Sick sinus syndrome due to SA node dysfunction Preop cardiovascular exam Nonischemic cardiomyopathy Presence of permanent cardiac pacemaker Chief Complaint Gall Bladder Issues Disease of gallbladder, unspecified 6 MO CK / STACK ATTENDANT 10:00 1 YR F/U / DANYELL 9:30 S/O S/O S/O 3 m fu IN PERSON DEVICE CHECK S/O Reason for Visit Gall bladder disease Chronic systolic (congestive) heart failure Mobitz type 2 second degree atrioventricular block Nonischemic cardiomyopathy Paroxysmal atrial fibrillation Presence of permanent cardiac pacemaker Sick sinus syndrome due to SA node dysfunction Preop cardiovascular exam Nonischemic cardiomyopathy Presence of permanent cardiac pacemaker Mobitz type 2 second degree atrioventricular block Paroxysmal atrial fibrillation Presence of permanent cardiac pacemaker Sick sinus syndrome due to SA node dysfunction Chief Complaint S/O 3 m fu IN PERSON DEVICE CHECK S/O S/O S/O Reason for Visit Mobitz type 2 second degree atrioventricular block Paroxysmal atrial fibrillation Presence of permanent cardiac pacemaker Sick sinus syndrome due to SA node dysfunction Chief Complaint 3 m fu IN PERSON DEV ICE CHECK S/O S/O S/O S/O Reason for Visit Mobitz type 2 second degree atrioventricular block Paroxysmal atrial fibrillation Presence of permanent cardiac pacemaker Sick sinus syndrome due to SA node dysfunction Chief Complaint S/O S/O S/O Pacer Check Remote approaching ALEC S/O Reason for Visit Chronic systolic (co ngestive) heart failure Mobitz type 2 second degree atrioventricular block Nonischemic cardiomyopathy Paroxysmal atrial fibrillation Presence of permanent cardiac pacemaker Sick sinus syndrome due to SA node dysfunction Chief Complaint S/O S/O Pacer Check Remote approaching ALEC S/O S/O Reason for Visit Chronic systolic (co ngestive) heart failure Mobitz type 2 second degree atrioventricular block Nonischemic cardiomyopathy Paroxysmal atrial fibrillation Presence of permanent cardiac pacemaker Sick sinus syndrome due to SA node dysfunction Chief Complaint Pacer Check Remote approaching ALEC S/O S/O 9 M FU / 9 w DANYELL Reason for Visit Chronic systolic (co ngestive) heart failure Mobitz type 2 second degree atrioventricular block Nonischemic cardiomyopathy Paroxysmal atrial fibrillation Presence of permanent cardiac pacemaker Sick sinus syndrome due to SA node dysfunction Chronic systolic (congestive) heart failure Mobitz type 2 second degree atrioventricular block Nonischemic cardiomyopathy Paroxysmal atrial fibrillation Presence of permanent cardiac pacemaker Sick sinus syndrome due to SA node dysfunction Nonischemic cardiomyopathy Presence of permanent cardiac pacemaker Chief Complaint Pacer Check Remote approaching ALEC S/O S/O 9 M FU / 9 w DANYELL Pacer Check Remote NORMAL BATTERY DEPLETION Reason for Visit Chronic systolic (co ngestive) heart failure Mobitz type 2 second degree atrioventricular block Nonischemic cardiomyopathy Paroxysmal atrial fibrillation Presence of permanent cardiac pacemaker Sick sinus syndrome due to SA node dysfunction Chronic systolic (congestive) heart failure Mobitz type 2 second degree atrioventricular block Nonischemic cardiomyopathy Paroxysmal atrial fibrillation Presence of permanent cardiac pacemaker Sick sinus syndrome due to SA node dysfunction Nonischemic cardiomyopathy Presence of permanent cardiac pacemaker Chief Complaint Admit Date LOWER EXT PAIN May 02, 2024 8 :29am 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 May 05, 2024 7:15am 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 May 11, 2024 2:35pm S/O May 18, 2024 12:45pm 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 May 18, 2024 1:00pm 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 May 18, 2024 5:26pm 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 June 01, 2024 2:18pm Pacer Check Remote June 12, 2024 5 :01am 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 June 22, 2024 1:00pm 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 June 22, 2024 5:55pm S/O June 30, 2024 9 :07am 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 July 06, 2024 2:06pm 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 July 12, 2024 4:25pm 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 July 20, 2024 4:59pm 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 July 27, 2024 1:00pm S/O July 27, 2024 2:20pm 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 July 27, 2024 6:12pm 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 August 10, 2024 1:57pm 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 August 17, 2024 1:00pm 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 August 17, 2024 1:36pm S/O August 17, 2024 1:5 1pm Reason for Visit Admit Date Ulcer of right lower extremity May 18, 2024 1:00pm Venous insufficiency of both lower extre mities May 18, 2024 1:00pm Ulcer of right ankle June 22, 2024 1:00pm Ulcer of right lower extremity June [id number] 1:00pm Venous insufficiency of both lower extre mities June 22, 2024 1:00pm Cellulitis of right lower leg July 022024 1:00pm Ulcer of right ankle July 27, 2024 1:00pm Ulcer of right lower extremity July 27, 2024 1:00pm Venous insufficiency of both lower extre mities July 27, 2024 1:00pm Ulcer of right ankle August 17, 2024 1: 00pm Venous insufficiency of both lower extre mities August 17, 2024 1:00pm Chief Complaint Admit Date S/O June 30, 2024 9 :07am 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 July 06, 2024 2:06pm 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 July 12, 2024 4:25pm 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 July 20, 2024 4:59pm 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 July 27, 2024 1:00pm S/O July 27, 2024 2:20pm 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 July 27, 2024 6:12pm 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 August 10, 2024 1:57pm 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 August 17, 2024 1:00pm 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 August 17, 2024 1:36pm S/O August 17, 2024 1:5 1pm Pacer Check Remote August 30, 2024 9:00 am 6 M FU/ Sees Danyell @ 10:30 August 30, 2024 10:01am Annual In-Clinic Check/ Sees MMM @ 10 2024 10:07am 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 August 31, 2024 1:29pm Pacer Check Remote September 11, 2024 5:0 1am 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 September 14, 2024 1:15pm 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 September 14, 2024 1:44pm S/O September 14, 2024 2:0 1pm 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 October 05, 2024 1:33pm S/O October 05, 2024 1:38pm 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 October 26, 2024 1:15pm Reason for Visit Admit Date Cellulitis of right lower leg July 022024 1:00pm Ulcer of right ankle July 27, 2024 1:00pm Ulcer of right lower extremity July 27, 2024 1:00pm Venous insufficiency of both lower extre mities July 27, 2024 1:00pm Ulcer of right ankle August 17, 2024 1: 00pm Venous insufficiency of both lower extre mities August 17, 2024 1:00pm Nonischemic cardiomyopathy August 30 10:01am Paroxysmal atrial fibrillation August 10:01am Presence of permanent cardiac pacemaker August 30, 2024 10:01am Mobitz type 2 second degree atrioventric ular block August 30, 2024 10:07am Nonischemic cardiomyopathy August 30 10:07am Paroxysmal atrial fibrillation August 10:07am Presence of permanent cardiac pacemaker August 30, 2024 10:07am Sick sinus syndrome due to SA node dysfu nction August 30, 2024 10:07am Ulcer of right ankle September 14, 2024 1: 15pm Venous insufficiency of both lower extre mities September 14, 2024 1:15pm Ulcer of right ankle October 26, 2024 1:15 pm Venous insufficiency of both lower extre mities October 26, 2024 1:15pm Chief Complaint Admit Date S/O June 30, 2024 9 :07am 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 July 06, 2024 2:06pm 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 July 12, 2024 4:25pm 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 July 20, 2024 4:59pm 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 July 27, 2024 1:00pm S/O July 27, 2024 2:20pm 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 July 27, 2024 6:12pm 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 August 10, 2024 1:57pm 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 August 17, 2024 1:00pm 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 August 17, 2024 1:36pm S/O August 17, 2024 1:5 1pm Pacer Check Remote August 30, 2024 9:00 am 6 M ALTON/ Sees Danyell @ 10:30 August 30, 2024 10:01am Annual In-Clinic Check/ Sees MMM @ 10 Ap 2024 10:07am 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 August 31, 2024 1:29pm Pacer Check Remote September 11, 2024 5:0 1am 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 September 14, 2024 1:15pm 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 September 14, 2024 1:44pm S/O September 14, 2024 2:0 1pm 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 October 05, 2024 1:33pm S/O October 05, 2024 1:38pm 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 October 26, 2024 1:15pm 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 October 26, 2024 2:15pm Additional Source Comments INFORMATION SOURCE (unrecogn ized section and content) DATE CREATED AUTHOR 11/24/2017 [facility] DATE CREATED AUTHOR AUTHOR'S ORGANIZ ATION 07/24/2019 [facility] DATE CREATED AUTHOR AUTHOR'S ORGANIZ ATION 05/29/2022 [facility] ([place]) DATE CREATED AUTHOR AUTHOR'S ORGANIZ ATION 10/29/2024 [facility] Goals (unrecognized section and content) Goals may be documented in a n alternate sectionGoals may be documented in an alternate sectionGoals may be documented in an alternate sectionGoals may be documented in an alternate sectionGoals may be documented in an alternate sectionGoals may be documented in an alternate sectionGoals may be documented in an alternate sectionGoals may be documented in an alternate section No data available for this section No data available for this sectionGoals may be documented in an alternate sectionGoals may be documented in an alternate sectionGoals may be documented in an alternate sectionGoals may be documented in an alternate sectionGoals may be documented in an alternate sectionGoals may be documented in an alternate sectionGoals may be documented in an alternate sectionGoals may be documented in an alternate sectionGoals may be documented in an alternate sectionGoals may be documented in an alternate sectionGoals may be documented in an alternate sectionGoals may be documented in an alternate sectionGoals may be documented in an alternate sectionGoals may be documented in an alternate sectionGoals may be documented in an alternate sectionGoals may be documented in an alternate sectionGoals may be documented in an alternate sectionGoals may be documented in an alternate sectionGoals may be documented in an alternate sectionGoals may be documented in an alternate sectionGoals may be documented in an alternate sectionGoals may be documented in an alternate section Care Team (unrecognized sect ion and content) Care Team Personnel Name: LOU BURTON DERRICK BUILDER-HARDWARE TECHNICIAN Position: P4 Advanced Practice Nurse Member Role: Primary Care Physician Address: Address: [address] [place] [address] Care Team Related Persons Name: RENATOEDMUNDO FLORES Name: MICAELA COOPER Address: Home [address] [place] [address] Care Team Personnel Name: LOU BURTON DERRICK BUILDER-HARDWARE TECHNICIAN Position: P4 Advanced Practice Nurse Member Role: Primary Care Physician Address: Address: [address] [place] [address] Care Team Related Persons Name: EDMUNDO GROSS Name: MICAELA COOPER Address: Home [address] [place] [address] Care Teams (unrecognized sec tion and content) Team Status: Active Member Role Status Dates Dr. Michaela Mcfadden , DO Family Provider Active Dr. Karissa Madrid , DO Primary Care Provider Active Team Status: Inactive Member Role Status Dates Dr. Michaela Mcfadden DO Referring Provider Active Leelee Fernandez Attending Provider Active Michaela Mcfadden Primary Care Provider Active Team Status: Inactive Member Role Status Dates Dr. Michaela Mcfadden DO Primary Care Provider, Referring P rovider Active Brook Gage PA, PA Attending Provider Active Team Status: Active Member Role Status Dates Dr. Karissa Madrid , DO Primary Care Provider Active Dr. Anupam Lizarraga MD Attending Provider, Referring Pro vider Active Team Status: Inactive Member Role Status Dates Dr. Michaela Mcfadden DO Primary Care Provider, Family Prov ider Active Dr. Anupam Lizarraga MD Attending Provider, Referring Pro vider Active Team Status: Inactive Member Role Status Dates Dr. Michaela Mcfadden DO Primary Care Provider, Family Prov ider Active Dr. Anupam Lizarraga MD Attending Provider, Referring Pro vider Active Brook Gage PA, PA Other Provider Active Lou Burton BASE[employer]ER HAND, BASEBALL SEWER HAND-C Other Provider Active Team Status: Inactive Member Role Status Dates Brook Gage PA, PA Attending Provider, Referr ing Provider Active Dr. Karissa Madrid DO Primary Care Provider Active Team Status: Inactive Member Role Status Dates Dr. Michaela Mcfadden DO Family Provider Active Dr. Anupam Lizarraga MD Attending Provider, Referring Pro vider Active Brook Gage PA, PA Other Provider Active Lou Burton [employer] HAND, BASEBALL SE[employer]ER HAND-C Other Provider Active Dr. Karissa Madrid DO Primary Care Provider Active Team Status: Inactive Member Role Status Dates Dr. Karissa Madrid DO Primary Care Provider, Referri ng Provider Active Dr. Yoshi Swann DO Attending Provider Active Team Status: Inactive Member Role Status Dates Dr. Karissa Madrid DO Primary Care Provider Active Dr. Yoshi Swann DO Attending Provider, Referring Provider Active Team Status: Inactive Member Role Status Dates Dr. Michaela Mcfadden DO Referring Provider Active Leelee Fernandez Attending Provider Active Dr. Karissa Madrid DO Primary Care Provider Active Team Status: Inactive Member Role Status Dates Dr. Michaela Mcfadden DO Referring Provider Active Dr. Anupam Lizarraga MD Attending Provider Active Dr. Karissa Madrid DO Primary Care Provider Active Team Status: Inactive Member Role Status Dates Dr. Karissa Madrid DO Primary Care Provider Active Dr. Yury Ly MD Attending Provider Active Dr. Yoshi Swann DO Referring Provider Active Team Status: Active Member Role Status Dates Dr. Michaela Mcfadden DO Family Provider Active Dr. Anupam Lizarraga MD Attending Provider, Referring Pro vider Active Brook Gage PA, PA Other Provider Active Lou Burton [employer] HAND, BASEBALL SE[employer]ER HAND-C Other Provider Active Dr. Karissa Madrid DO Primary Care Provider Active Team Status: Inactive Member Role Status Dates Dr. Karissa Madrid DO Primary Care Provider Active Dr. Yury Ly MD Attending Provider, Referring Provider Active Team Status: Inactive Member Role Status Dates Dr. Karissa Madrid DO Primary Care Provider, Referri ng Provider Active Leelee Fernandez Attending Provider Active Team Status: Inactive Member Role Status Dates Dr. Karissa Madrid , Primary Care Provider Active Leelee Fernandez Active Dr. Anupam Lizarraga MD Attending Provider, Referring Pro vider Active Team Status: Active Member Role Status Dates Dr. Karissa Madrid , DO Primary Care Provider Active Dr. Anupam Lizarraga MD Attending Provider Active Team Status: Inactive Member Role Status Dates Dr. Karissa Madrid , Primary Care Provider Active Dr. Anupam Lizarraga MD Attending Provider Active Team Status: Active Member Role Status Dates Dr. Michaela Mcfadden DO Family Provider Active No Primary Care Physician Primary Care Provider Active Team Status: Inactive Member Role Status Dates Dr. Karissa Madrid , Primary Care Provider, Referri ng Provider Active Dr. Anupam Lizarraga MD Attending Provider Active Team Status: Inactive Member Role Status Dates Dr. Karissa Madrid DO Primary Care Provider Active Dr. Anupam Lizarraga MD Attending Provider, Referring Pro vider Active Team Status: Inactive Member Role Status Dates No Primary Care Physician Primary Care Provider Active Dr. Anupam Lizarraga MD Attending Provider Active Team Status: Inactive Member Role Status Dates Dr. Anupam Lizarraga MD Attending Provider, Referring Pro vider Active No Primary Care Physician Primary Care Provider Active Team Status: Active Member Role Status Dates Dr. Michaela Mcfadden DO Family Provider Active Lynettetom Burton , [employer] HAND-C Primary Care Provider Active Team Status: Inactive Member Role Status Dates Lynette Burton B[employer] HAND-C Primary Care Provider Active Start: May 02, 2024 End: May 02, 2024 Dr. Stan De Luna MD Attending Provider Active S tart: May 02, 2024 End: May 02, 2024 Dr. Stan De Luna MD Referring Provider Active S tart: May 02, 2024 End: May 02, 2024 Team Status: Active Member Role Status Dates Lynette Burton [employer] HAND-C Primary Care Provider Active Start: May 02, 2024 Dr. Stan De Luna MD Attending Provider Active S tart: May 02, 2024 EZRA Rincon Referring Provider Active Star t: May 02, 2024 Team Status: Active Member Role Status Dates Lynette Burton [employer] HAND-C Primary Care Provider Active Start: May 05, 2024 EZRA Rincon Attending Provider Active Star t: May 05, 2024 EZRA Rincon Other Provider Active Start: 2023 Mame Jacob NP, BASEB[employer] HAND-C Referring Provider Active S tart: May 05, 2024 Team Status: Active Member Role Status Dates HAWA MaciasC Primary Care Provider Active Start: May 11, 2024 EZRA Rincon Attending Provider Active Star t: May 11, 2024 EZRA Rincon Other Provider Active Start: 2023 Mame Jacob NP, BASE[employer] HAND-C Referring Provider Active S tart: May 11, 2024 Team Status: Inactive Member Role Status Dates Dr. Michaela Mcfadden DO Family Provider Active Start : May 18, 2024 End: May 18, 2024 Dr. Anupam Lizarraga MD Attending Provider Active S tart: May 18, 2024 End: May 18, 2024 Dr. Anupam Lizarraga MD Referring Provider Active S tart: May 18, 2024 End: May 18, 2024 Brook MUNGUIA, PA Other Provider Active Start: May 18, 2024 End: May 18, 2024 Lou Burton NP, B[employer] HAND-C Other Provider Active S tart: May 18, 2024 End: May 18, 2024 NILSA Macias Primary Care Provider Active Start: May 18, 2024 End: May 18, 2024 Team Status: Inactive Member Role Status Dates Lynette Burton NP-C Primary Care Provider Active Start: May 18, 2024 End: May 30, 2024 EZRA Rincon Attending Provider Active Star t: May 18, 2024 End: May 30, 2024 Mame Jacob NP, [employer] HAND-C Referring Provider Active S tart: May 18, 2024 End: May 30, 2024 Team Status: Active Member Role Status Dates NILSA Macias Primary Care Provider Active Start: May 18, 2024 EZRA Rincon Attending Provider Active Star t: May 18, 2024 EZRA Rincon Other Provider Active Start: 2023 Mame Jacob B[employer] HAND, BASE[employer]ER HAND-C Referring Provider Active S tart: May 18, 2024 Team Status: Active Member Role Status Dates Lynette Micheal , B[employer] HAND-C Primary Care Provider Active Start: June 01, 2024 EZRA Rincon Attending Provider Active Star t: June 01, 2024 EZRA Rincon Other Provider Active Start: J anuary 2024 Mame Jacob B[employer] HAND, BASEB[employer] HAND-C Referring Provider Active S tart: June 01, 2024 Team Status: Inactive Member Role Status Dates Lynette Burton , BASEBALL [employer] HAND-C Primary Care Provider Active Start: June 12, 2024 End: June 12, 2024 Dr. Anupam Lizarraga MD Attending Provider Active S tart: June 12, 2024 End: June 12, 2024 Dr. Anupam Lizarraga MD Referring Provider Active S tart: June 12, 2024 End: June 12, 2024 Team Status: Inactive Member Role Status Dates Lynette Burton [employer] HAND-C Primary Care Provider Active Start: June 22, 2024 End: June 30, 2024 EZRA Rincon Attending Provider Active Star t: June 22, 2024 End: June 30, 2024 Mame Jacob NP, BASEB[employer] HAND-C Referring Provider Active S tart: June 22, 2024 End: June 30, 2024 Team Status: Active Member Role Status Dates Lynette Burton BASE[employer] HAND-C Primary Care Provider Active Start: June 22, 2024 EZRA Rincon Attending Provider Active Star t: June 22, 2024 EZRA Rincon Other Provider Active Start: J anuary 2024 Mame Jacob NP, BASEB[employer] HAND-C Referring Provider Active S tart: June 22, 2024 Team Status: Inactive Member Role Status Dates Dr. Michaela Mcfadden DO Family Provider Active Start : June 30, 2024 End: June 30, 2024 Dr. Anupam Lizarraga MD Attending Provider Active S tart: June 30, 2024 End: June 30, 2024 Dr. Anupam Lizarraga MD Referring Provider Active S tart: June 30, 2024 End: June 30, 2024 Brook MUNGUIA, PA Other Provider Active Start: June 30, 2024 End: June 30, 2024 Lou Burton NP, BASE[employer] HAND-C Other Provider Active S tart: June 30, 2024 End: June 30, 2024 Lynette Micheal , BASEB[employer] HAND-C Primary Care Provider Active Start: June 30, 2024 End: June 30, 2024 Team Status: Active Member Role Status Dates Lynette Burton [employer] HAND-C Primary Care Provider Active Start: July 06, 2024 EZRA Rincon Attending Provider Active Star t: July 06, 2024 EZRA Rincon Other Provider Active Start: ebruary 2024 Mame Jacob [employer] HAND, BASEB[employer] SE[employer]ER HAND-C Referring Provider Active S tart: July 06, 2024 Team Status: Active Member Role Status Dates Lynette Burton , B[employer] HAND-C Primary Care Provider Active Start: July 12, 2024 EZRA Rincon Other Provider Active Start: ebary 2024 Juanita Jacobsen B[employer] HAND, BASEBALL SE[employer]ER HAND-C Attending Provider Active Start: July 12, 2024 Juanita Jacobsen [employer] HAND, BASE[employer] HAND-C Referring Provider Active Start: July 12, 2024 Team Status: Active Member Role Status Dates Lynette Burton , BASEBALL [employer] HAND-C Primary Care Provider Active Start: July 20, 2024 EZRA Rincon Attending Provider Active Star t: July 20, 2024 EZRA Rincon Other Provider Active Start: 2024 Mame Jacob [employer] HAND, BASEBALL SEWER HAND-C Referring Provider Active S tart: July 20, 2024 Team Status: Inactive Member Role Status Dates Lynette Burton , BASEBALL [employer] HAND-C Primary Care Provider Active Start: July 27, 2024 End: July 28, 2024 EZRA Rincon Attending Provider Active Star t: July 27, 2024 End: July 28, 2024 Mame Jacob [employer]ASE[employer] HAND, BASEBALL SEWER HAND-C Referring Provider Active S tart: July 27, 2024 End: July 28, 2024 Team Status: Inactive Member Role Status Dates Dr. Michaela Mcfadden DO Family Provider Active Start : July 27, 2024 End: July 28, 2024 Dr. Anupam Lizarraga MD Attending Provider Active S tart: July 27, 2024 End: July 28, 2024 Dr. Anupam Lizarraga MD Referring Provider Active S tart: July 27, 2024 End: July 28, 2024 Brook MUNGUIA, PA Other Provider Active Start: July 27, 2024 End: July 28, 2024 Lou Burton NP, BASEBALL SE[employer] HAND-C Other Provider Active S tart: July 27, 2024 End: July 28, 2024 Lynette Burton NP-C Primary Care Provider Active Start: July 27, 2024 End: July 28, 2024 Team Status: Active Member Role Status Dates Lynette Burton NP-C Primary Care Provider Active Start: July 27, 2024 EZRA Rincon Attending Provider Active Star t: July 27, 2024 EZRA Rincon Other Provider Active Start: F ebruary 2024 Mame Jacob B[employer] HAND, BASEBALL SEWER HAND-C Referring Provider Active S tart: July 27, 2024 Team Status: Active Member Role Status Dates Lynette Burton NP-C Primary Care Provider Active Start: August 10, 2024 EZRA Rincon Attending Provider Active Star t: August 10, 2024 EZRA Rincon Other Provider Active Start: arch 2024 Mame Jacob NP, BASEBALL [employer] HAND-C Referring Provider Active S tart: August 10, 2024 Team Status: Active Member Role Status Dates Lynette Burton NP-C Primary Care Provider Active Start: August 17, 2024 EZRA Rincon Attending Provider Active Star t: August 17, 2024 Mame Jacob NP, BASEBALL [employer] HAND-C Referring Provider Active S tart: August 17, 2024 Team Status: Active Member Role Status Dates Lynette Burton NP-C Primary Care Provider Active Start: August 17, 2024 EZRA Rincon Attending Provider Active Star t: August 17, 2024 EZRA Rincon Other Provider Active Start: 2024 Mame Jacob NP, BASEB[employer] HAND-C Referring Provider Active S tart: August 17, 2024 Team Status: Inactive Member Role Status Dates Dr. Michaela Mcfadden DO Family Provider Active Start : August 17, 2024 End: August 17, 2024 Dr. Anupam Lizarraga MD Attending Provider Active S tart: August 17, 2024 End: August 17, 2024 Dr. Anupam Lizarraga MD Referring Provider Active S tart: August 17, 2024 End: August 17, 2024 Brook Gage PA, PA Other Provider Active Start: August 17, 2024 End: August 17, 2024 Lou Seffens B[employer] HAND, BASEBALL SEWER HAND-C Other Provider Active S tart: August 17, 2024 End: August 17, 2024 Lynette Burton [employer] HAND-C Primary Care Provider Active Start: August 17, 2024 End: August 17, 2024 Team Status: Inactive Member Role Status Dates Lynette Burton , BASEBALL [employer] HAND-C Primary Care Provider Active Start: August 17, 2024 End: August 28, 2024 EZRA Rincon Attending Provider Active Star t: August 17, 2024 End: August 28, 2024 Mame Jacob B[employer] HAND, BASEBALL SEWER HAND-C Referring Provider Active S tart: August 17, 2024 End: August 28, 2024 Team Status: Inactive Member Role Status Dates Lynette Burton , BASEBALL [employer] HAND-C Primary Care Provider Active Start: August 30, 2024 End: August 30, 2024 Dr. Anupam Lizarraga MD Attending Provider Active S tart: August 30, 2024 End: August 30, 2024 Team Status: Inactive Member Role Status Dates Lynette Burton , BASEBALL [employer] HAND-C Primary Care Provider Active Start: August 30, 2024 End: August 30, 2024 Lynette Burton , BASEBALL SE[employer] HAND-C Referring Provider Active St art: August 30, 2024 End: August 30, 2024 Brook MUNGUIA, PA Attending Provider Active Start: August 30, 2024 End: August 30, 2024 Team Status: Inactive Member Role Status Dates Lynette Burton , BASEBALL [employer] HAND-C Primary Care Provider Active Start: August 30, 2024 End: August 30, 2024 Dr. Anupam Lizarraga MD Attending Provider Active S tart: August 30, 2024 End: August 30, 2024 Dr. Anupam Lizarraga MD Referring Provider Active S tart: August 30, 2024 End: August 30, 2024 Team Status: Active Member Role Status Dates Lynette Burton , BASEBALL [employer] HAND-C Primary Care Provider Active Start: August 31, 2024 ZERA Rincon Attending Provider Active Star t: August 31, 2024 EZRA Rincon Other Provider Active Start: A [id number] Mame Jacob BASEBALL SE[employer]ER HAND, BASEBALL SEWER HAND-C Referring Provider Active S tart: August 31, 2024 Team Status: Inactive Member Role Status Dates Lynette Burton , BASEBALL SE[employer] HAND-C Primary Care Provider Active Start: September 11, 2024 End: September 11, 2024 Dr. Anupam Lizarraga MD Attending Provider Active S tart: September 11, 2024 End: September 11, 2024 Dr. Anupam Lizarraga MD Referring Provider Active S tart: September 11, 2024 End: September 11, 2024 Team Status: Inactive Member Role Status Dates Lynette Burton BASEBALL [employer] HAND-C Primary Care Provider Active Start: September 14, 2024 End: September 27, 2024 EZRA Rincon Attending Provider Active Star t: September 14, 2024 End: September 27, 2024 Mame Jacob NP, BASEBALL [employer] HAND-C Referring Provider Active S tart: September 14, 2024 End: September 27, 2024 Team Status: Active Member Role Status Dates Lynette Burton NP-C Primary Care Provider Active Start: September 14, 2024 EZRA Rincon Attending Provider Active Star t: September 14, 2024 EZRA Rincon Other Provider Active Start: A [id number] Mame Jacob BASE[employer] HAND, BASEBALL SEWER HAND-C Referring Provider Active S tart: September 14, 2024 Team Status: Inactive Member Role Status Dates Dr. Michaela Mcfadden DO Family Provider Active Start : September 14, 2024 End: September 27, 2024 Dr. Anupam Lizarraga MD Attending Provider Active S tart: September 14, 2024 End: September 27, 2024 Dr. Anupam Lizarraga MD Referring Provider Active S tart: September 14, 2024 End: September 27, 2024 Brook MUNGUIA, PA Other Provider Active Start: September 14, 2024 End: September 27, 2024 Lou Burton NP, BASEBALL SE[employer] HAND-C Other Provider Active S tart: September 14, 2024 End: September 27, 2024 Lynette Burton NP-C Primary Care Provider Active Start: September 14, 2024 End: September 27, 2024 Team Status: Active Member Role Status Dates Lynette Burton NP-C Primary Care Provider Active Start: October 05, 2024 EZRA Rincon Attending Provider Active Star t: October 05, 2024 EZRA Rincon Other Provider Active Start: Bharathi giordano 2024 Mame Jacob NP, BASEBALL SE[employer] HAND-C Referring Provider Active S tart: October 05, 2024 Team Status: Active Member Role Status Dates Dr. Michaela Mcfadden DO Family Provider Active Start : October 05, 2024 Dr. Anupam Lizarraga MD Attending Provider Active S tart: October 05, 2024 Dr. Anupam Lizarraga MD Referring Provider Active S tart: October 05, 2024 Brook Gage PA, PA Other Provider Active Start: October 05, 2024 Lou Burton NP, BASEBALL SE[employer] HAND-C Other Provider Active S tart: October 05, 2024 Lynette Burton NP-C Primary Care Provider Active Start: October 05, 2024 Team Status: Inactive Member Role Status Dates Lynette Burton NP-C Primary Care Provider Active Start: October 26, 2024 End: October 26, 2024 EZRA Rincon Attending Provider Active Star t: October 26, 2024 End: October 26, 2024 Mame Jacob NP, BASEB[employer] HAND-C Referring Provider Active S tart: October 26, 2024 End: October 26, 2024 Team Status: Inactive Member Role Status Dates Dr. Michaela Mcfadden DO Family Provider Active Start : October 05, 2024 End: October 05, 2024 Dr. Anupam Lizarraga MD Attending Provider Active S tart: October 05, 2024 End: October 05, 2024 Dr. Anupam Lizarraga MD Referring Provider Active S tart: October 05, 2024 End: October 05, 2024 Brook Gage PA, PA Other Provider Active Start: October 05, 2024 End: October 05, 2024 Lou Burton NP, BASEB[employer] HAND-C Other Provider Active S tart: October 05, 2024 End: October 05, 2024 Lynette Burton NP-C Primary Care Provider Active Start: October 05, 2024 End: October 05, 2024 Team Status: Active Member Role Status Dates Lynette Burton NP-C Primary Care Provider Active Start: October 26, 2024 EZRA Rincon Attending Provider Active Star t: October 26, 2024 EZRA Rincon Other Provider Active Start: Bharathi giordano 2024 Mame Jacob NP, BASEBALL SE[employer] HAND-C Referring Provider Active S tart: October 26, 2024 FOR RECORDS PERTAINING TO PATIENTS WHO ARE OR HAVE BEEN ENROLLED IN A CHEMICAL DEPENDENCY/SUBSTANCEABUSE PROGRAM, SOME INFORMATION MAY BE OMITTED. This clinical summary was aggregated from multiple sources. Caution should be exercised in using it in the provision of clinical care. This summary normalizes information from multiple sources, and as a consequence, information in this document may materially change the coding, format and clinical context of patient data. In addition, data may be omitted in some cases. CLINICAL DECISIONS SHOULD BE BASED ON THE PRIMARY CLINICAL RECORDS. [facility] provides no warranty or guarantee of the accuracy or completeness of information in this document.
--- NOTE | 2024-11-03 03:19 | CT_ITS ---
PROCEDURE: CTA ABD/PELVIS W/WO CONTRAST 11/03/2024 REASON FOR EXAM: GI BLEED TECHNIQUE: CTA imaging of the abdomen and pelvis with intravenous contrast. Multiplanar and multisequence images were obtained. 3D post processing was performed CONTRAST: 100 mL Isovue 370 One or more dose reduction techniques were used (e.g., Automated exposure control, adjustment of the mA and/or kV according to patient size, use of iterative reconstruction technique). RADIATION DOSE SUMMARY: CTDlvol: 42.7 mGy DLP: 730 mGycm COMPARISON: CT chest, abdomen, and pelvis on 11/02/2024 FINDINGS: Aorta: Moderate mixed calcified and soft plaque. No abdominal aortic aneurysm. Iliac Arteries: Scattered atherosclerotic plaque. No aneurysm or significant stenosis. Celiac: Mild mixed calcified and soft plaque identified. SMA: Mild mixed calcified and soft plaque identified. STACY : Unremarkable. Right Renal: Mild mixed calcified and soft plaque identified. Left Renal: Moderate mixed calcified and soft plaque identified. No high grade stenosis. Other Findings: No focal hyperdensity identified within the bowel. Nodular consolidation in the posterior right lung base, and consolidation in the right middle lobe, are unchanged. Left adrenal nodule measuring 1.0 cm, also unchanged. Numerous vertebral compression deformities are again noted. Soft tissue swelling in the right chest and upper arm. Diffuse osteopenia. Left hip hardware. CT/CTA Abd/Pelvis W/WO Contrast IMPRESSION: 1. No findings to suggest active gastrointestinal bleeding on this single phas e exam. 2. Moderate abdominal aortic atherosclerosis, without aneurysm or dissection. 3. Additional unchanged findings from CT on 11/02/2024 as described above. Reading Location: [id number]
[2024-11-03] MEDS: 0.9% Normal Saline (1000mL) 1,000 ML 999 ML IV (03:24)
[2024-11-03] MEDS: Ondansetron 4 MG/2 ML Vial IV (03:36)
[2024-11-03] MEDS: fentaNYL 100 MCG/2 ML Ampul 25 MCG IV ×2 (03:37→05:27)
[2024-11-03 03:40] LABS: Absolute Lymphocyte Count 1.34 X10^3/uL (0.83-4.51); Basophil# 0.04 X10^3/uL; Basophil% 0.4 % (0-1); Hematocrit 26.1 % (37-47); Hemoglobin 8.5 g/dL (12.0-15.0); Lymphocyte # 1.34 X10^3/ul (0.83-4.51); Lymphocyte % 14.5 % (19-41); Mean Corp Hgb Conc 32.6 g/dL (32-36); Mean Corpuscular Hgb 31.6 pg (27.0-32.0); Monocyte% 8.6 % (0-10); NRBC Flagged by Analyzer 2.4 % (0-5); Neutrophil # 7.02 X10^3/uL (2.7-7.7); Neutrophil % 75.9 % (47-70); POSITIVE MORPHOLOGY YES; Platelet Count 246 K/mm3 (150-450); RBC Distribution Width CV 20.2 % (11.6-14.6); Red Blood Count 2.69 M/mm3 (4.2-5.4); White Blood Count 9.3 K/mm3 (4.4-11.0)
[2024-11-03 03:42] LABS: Differential Indicated SCAN CRITERIA MET
[2024-11-03 04:14] LABS: Anisocytosis 2+; Differential Comment SCANNED
[2024-11-03 04:26] LABS: Anion Gap 16 (5-15); BUN 27 mg/dL (4-19); BUN/Creat Ratio 17.8 RATIO (10-20); Carbon Dioxide 24.2 mmol/L (21.0-32.0); Chloride 98 mmol/L (98-108); Creatinine, Serum 1.49 mg/dL (0.70-1.20); EST Glomerular Filtration Rate 36 (>60); Glucose 209 mg/dL (70-99); Potassium 4.3 mmol/L (3.3-5.1); Sodium Level 139 mmol/L (133-145)
[2024-11-03 04:41] LABS: Calcium,Total 9.8 mg/dL (7.6-11.0)
[2024-11-03 04:47] VITALS: BP 104/50; PULSE 75; RESP 16; O2SAT 100
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
[2024-11-03 05:59] LABS: Partial Thromboplast Time 33.5 Seconds (24.1-36.2); Prothrombin Time (Protime)PT. 42.8 SECONDS (11.7-14.9)
[2024-11-03 06:36] LABS: International Normalized Ratio 4.4
[2024-11-03 07:15] VITALS: BP 111/53; PULSE 67; RESP 16; O2SAT 92
[2024-11-03 07:27] VITALS: BP 111/53; PULSE 67; RESP 16; TEMP 36.7; O2SAT 92
== END 2024-11-03 07:27 | disposition home or self-care (01) ==
PROVIDERS: Emergency Provider Emergency Medicine; PCP Nurse Practitioner Family; Visit Provider Emergency Medicine
DX: R11.2 Nausea with vomiting, unspecified (principal); I50.22 Chronic systolic (congestive) heart failure; I48.0 Paroxysmal atrial fibrillation; I42.8 Other cardiomyopathies; Z79.01 Long term (current) use of anticoagulants; D64.9 Anemia, unspecified; R79.1 Abnormal coagulation profile; Z79.899 Other long term (current) drug therapy; Z95.0 Presence of cardiac pacemaker
CPT/HCPCS: 96361; 96374; 96375; 99285; 74174; 80048; 82274; 85025; 85610; 85730; 86850; 86900; 86901; Q9967; A4216; J2405

== ENCOUNTER 2024-11-06 11:00 | Outpatient (RCR) | payer MEDICARE, SELFPAY ==
[2024-10-28 20:57] VITALS: BMI 23.6
[2024-11-06 11:20] LABS: Absolute Neutrophil Count 6.3 X10^3/uL (2.0-7.7); Basophil# 0.07 X10^3/uL; Basophil% 0.8 % (0-1); Eosinophil# 0.21 X10^3/uL; Eosinophils% 2.5 % (0-5); Hematocrit 20.3 % (37-47); Hemoglobin 6.4 g/dL (12.0-15.0); Lymphocyte % 12.9 % (19-41); Mean Corp Hgb Conc 31.5 g/dL (32-36); Mean Corpuscular Volume 101.5 fL (81-99); Mean Platelet Vol. 10.7 fl (6.2-12.0); Monocyte# 0.78 X10^3/uL; Monocyte% 9.1 % (0-10); NRBC Flagged by Analyzer 2.2 % (0-5); Neutrophil # 6.28 X10^3/uL (2.7-7.7); Neutrophil % 73.4 % (47-70); POSITIVE MORPHOLOGY YES; Platelet Count 242 K/mm3 (150-450); RBC Distribution Width CV 21.1 % (11.6-14.6); RBC Distribution Width SD 78.1 fl (35.1-43.9); White Blood Count 8.6 K/mm3 (4.4-11.0)
[2024-11-06 11:21] LABS: Differential Indicated SCAN CRITERIA MET
[2024-11-06 11:29] LABS: International Normalized Ratio 1.5
[2024-11-06 11:45] LABS: Anisocytosis 1+; Hypochromasia 1+
== END 2024-11-06 18:00 | disposition home or self-care (01) ==
LOC: LAB 11:00
PROVIDERS: Emergency Medicine; Family Provider Family Medicine; PCP Nurse Practitioner Family; Referring Provider Internal Medicine Cardiovascular Disease; Visit Provider Internal Medicine Cardiovascular Disease
DX: Z79.01 Long term (current) use of anticoagulants; I87.2 Venous insufficiency (chronic) (peripheral); L97.312 Non-pressure chronic ulcer of right ankle with fat layer exposed; L97.212 Non-pressure chronic ulcer of right calf with fat layer exposed; I48.91 Unspecified atrial fibrillation; Z95.0 Presence of cardiac pacemaker; D64.9 Anemia, unspecified
CPT/HCPCS: 36415; 85025; 85610

== ENCOUNTER 2024-11-06 13:30 | Inpatient (IN) | payer MEDICARE, SELFPAY ==
[2024-11-06] VITALS (15 sets, daily range): BP systolic 94–119; BP diastolic 44–53; PULSE 65–110; RESP 14–18; TEMP 36.6–38.1; O2SAT 94–100; BMI 24.2; BMI 24.6
--- NOTE | 2024-11-06 14:36 | EX.ED.DYSGE1 ---
HPI History of Present Illness Chief Complaint: Abn Labs [facility] Medical History Mobitz type 2 second degree atrioventricular block Sick sinus syndrome due to SA node dysfunction Chronic systolic (congestive) heart failure Paroxysmal atrial fibrillation Sinoatrial node dysfunction FH: sudden cardiac (SCD) Nonischemic cardiomyopathy Elevated troponin Acute calculous cholecystitis Home Medications ?Medication ?Instructions ?Recorded ?Last Taken ?Type furosemide 20 mg tablet 20 mg PO QAM #90 tabs 08/31/24 11/06/24 Rx metoprolol succinate 50 mg 50 mg PO QDAY #90 tabs 08/31/24 11/06/24 Rx tablet,extended release 24 hr ramipril 2.5 mg capsule 2.5 mg PO DAILY #90 caps 08/31/24 11/06/24 Rx warfarin 2 mg tablet 2 mg PO .COMPLEX #90 tabs 08/31/24 11/01/24 Rx warfarin 5 mg tablet 5 mg PO DAILY #90 TABLETS 09/14/24 11/02/24 Rx hydrocodone-acetaminophen 5-325mg 1 tab PO Q6H PRN pain 5 days #20 11/02/24 Unknown Rx 5mg-325mg tabs ondansetron 4 mg disintegrating 4 mg PO TID PRN nausea and 11/03/24 Unknown Rx tablet vomiting #21 tabs Allergy/AdvReac Type Severity Reaction Status Date / Time amoxicillin (From Augmentin) Allergy Rash Verified 11/06/24 13:31 clavulanic acid (From Allergy Rash Verified 11/06/24 13:31 Augmentin) Family History Brother Sudden cardiac Brother Myocardial infarction, Onset Age: 40 Heart disease Sister Hypertension Surgical History History of left heart catheterization (05/27/16) Presence of permanent cardiac pacemaker (2008) Social History Smoking Status: Never smoker alcohol intake: never substance use type: does not use caffeine: Yes Type: coffee what type of physical activity do you participate in: bicycling frequency: daily duration: < 15 minutes/day seatbelt use: always do you feel safe at home: Yes EXAM Physical Exam Const Vital Signs: 11/06/24 13:31 11/06/24 13:41 11/06/24 14:31 Temperature 97.8 F Temperature Source Oral Pulse Rate 72 76 Respiratory Rate 16 18 Respiratory Effort Normal Respiratory Pattern Normal Blood Pressure 94/45 L Blood Pressure Mean 61 Pulse Ox 100 97 Oxygen Delivery Method Room Air Room Air 11/06/24 15:00 11/06/24 16:05 Temperature Temperature Source Pulse Rate 76 74 Respiratory Rate 14 16 Respiratory Effort Respiratory Pattern Blood Pressure 96/50 L Blood Pressure Mean 65 Pulse Ox 99 99 Oxygen Delivery Method Room Air [facility] [place] Narrative Medical decision making narrative: HISTORY OF PRESENT ILLNESS: Chief complaint: Blood transfusion 79-year-old female history of sick sinus syndrome, A-fib on warfarin, presents with concern for low hemoglobin. REVIEW OF SYSTEMS: Pertinent positives: Fatigue, hematemesis, dark stool, arm pain Pertinent negatives: Chest pain, leg pain PHYSICAL EXAM: Nursing triage notes reviewed, Vital signs reviewed Constitutional: [facility] see [facility] HENT: MMM Eyes: Pupils equal round and reactive to light, Extraocular muscles intact Neck: No stridor, no JVD, full neck ROM Lungs: Clear to auscultation, No wheezing or rales. No increased work of breathing, no conversational dyspnea, no accessory muscle use, no nasal flaring. No respiratory distress noted Heart: Regular rate and rhythm, No murmurs, No rubs and No gallops, 2+ distal pulses (radial, femoral, posterior tibial) in all extremities Abdomen: Soft, there is no tenderness, rigidity, rebound or guarding, no obvious peritoneal signs, no palpable pulsatile abdominal masses, no auscultated abdominal bruit : No CVAT Extremities: No edema, Previous injury to the right humerus and scapula. Compartments are soft. Neuro: No new focal neurological deficits, cranial nerves II through XII intact, 5/5 strength in all present extremities. Intact sensation to light touch in all present extremities, 2+ reflexes bilateral patella tendons. Skin: Significant ecchymosis to the face and chin. Significant ecchymosis to right posterior arm. MEDICAL DECISION MAKING: Chief Complaint: please see HPI External records reviewed: Reviewed recent CBC. CBC from 11/06/2024 showed hemoglobin of 6.4, this is downtrending by 2 g/dL from prior CBC on 11/03/2024 which was 8.5, further downtrending from CBC on 11/02/2024 with a hemoglobin 10.1 Factors affecting care: Chronic anticoagulation Social determinants of health: none History obtained from others: Family Consults: (Gastroenterology), internal medicine (Dr. Parra) MDM Narrative: The patient initially had soft blood pressures with initial blood pressure 94/45 otherwise pulse was normal, she was saturating well on room air had no fever was nontoxic-appearing. Exam with bruising as above. I considered the following differential diagnosis: GI bleed, septic anemia, anemia chronic disease, supratherapeutic INR I obtained a broad lab and imaging workup to further elucidate etiology of the patient's complaints ALL IMAGES (IF OBTAINED) HAVE BEEN PERSONALLY REVIEWED AND INTERPRETED BY MYSELF. CBC with marked anemia with a hemoglobin of 6.5, no leukocytosis or thrombocytosis, INR subtherapeutic at 1.4 (consistent with warfarin stoppage) BMP without significant electrolyte or maladies, no EDWARD Type and screen Patient was consented and ordered a 2 unit PRBC transfusion. Discussed case with GI Dr. (Dr. Swann) who noted he can care for the patient in terms of GI intervention. Discussed with hospitalist (Dr. Parra) The patient and/or family, caregivers express understanding. The patient and/or family, caregivers agrees with the plan. Shared decision making: I will have a discussion with the patient and or visitors regarding risk/benefits of further testing or admission. They will be made aware of of the risk/benefits inherent in this decision they will be given the opportunity to voice understanding. Total critical care time today provided was at least 0 minutes. This excludes separately billable procedures. Critical care time (if documented) is secondary to the patient having high probability of clinically significant/life threatening deterioration in the patient's condition which required my urgent intervention. Impression: 1. Acute anemia 2. GI bleed 3. History of anticoagulation Dispo: Admit to medicine This note was generated with [employer]ontoForms dictation software. It may contain incorrect words, spelling, and punctuation that were not noted in review of the chart prior to signing. Lab Data Labs: Laboratory Results - last 24 hr 11/06/24 11/06/24 13:50 14:59 WBC 9.7 RBC 2.03 L Hgb 6.5 L Hct 20.5 L MCV 101.0 H MCH 32.0 MCHC 31.7 L RDW Std Deviation 76.7 H RDW Coeff of [place] 21.2 H Plt Count 248 MPV 10.9 PT 17.0 H INR 1.4 Sodium 137 Potassium 4.3 Chloride 99 Carbon Dioxide 26.0 Anion Gap 12 BUN 29 H Creatinine 1.23 H Estim Creat Clear Calc 32.55 L Est GFR (MDRD) Non-Af 45 L BUN/Creatinine Ratio 23.6 H Glucose 143 H Calcium 9.4 Blood Type A POSITIVE Antibody Screen NEGATIVE Crossmatch See Detail Discharge Plan Triage Chief Complaint: Abn Labs ED Provider: Wei Sandhu Dx/Rx/DC Orders Primary Care Provider: Lynette Burton
--- NOTE | 2024-11-06 14:38 | EKG12_ITS ---
Test Reason : AM EKG Blood Pressure : */* mmHG Vent. Rate : 68 BPM Atrial Rate : 68 BPM P-R Int : 210 ms QRS Dur : 132 ms QT Int : 426 ms P-R-T Axes : 78 -52 128 degrees QTcB Int : 452 ms Sinus rhythm with 1st degree A-V block Left axis deviation Left bundle branch block Abnormal ECG When compared with ECG of 06-Nov-2024 14:52, MANUAL COMPARISON REQUIRED DATA IS UNCONFIRMED Confirmed by Juan F Burnette ([id number]), news video editor KELBY GUTIERREZ ([id number]) on 11/07/2024 11:07:07 AM Referred By: ARI Confirmed By: Juan F Burnette
[2024-11-06 14:57] LABS: Hematocrit 20.5 % (37-47); Hemoglobin 6.5 g/dL (12.0-15.0); Mean Corp Hgb Conc 31.7 g/dL (32-36); Mean Platelet Vol. 10.9 fl (6.2-12.0); POSITIVE MORPHOLOGY YES; Platelet Count 248 K/mm3 (150-450); RBC Distribution Width CV 21.2 % (11.6-14.6); RBC Distribution Width SD 76.7 fl (35.1-43.9); Red Blood Count 2.03 M/mm3 (4.2-5.4); White Blood Count 9.7 K/mm3 (4.4-11.0)
[2024-11-06 14:58] LABS: Scan Indicated on CBC? Y/N YES- FLAGS NOTED
[2024-11-06 15:08] LABS: International Normalized Ratio 1.4
[2024-11-06 15:26] LABS: Anion Gap 12 (5-15); BUN 29 mg/dL (4-19); BUN/Creat Ratio 23.6 RATIO (10-20); Calcium,Total 9.4 mg/dL (7.6-11.0); Chloride 99 mmol/L (98-108); Creatinine, Serum 1.23 mg/dL (0.70-1.20); EST Glomerular Filtration Rate 45 (>60); Estimated Creatinine Clearance 32.55 ml/min (50-250); Glucose 143 mg/dL (70-99); Potassium 4.3 mmol/L (3.3-5.1); Sodium Level 137 mmol/L (133-145)
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
[2024-11-06] MEDS: Acetaminophen 325 MG Tablet 650 MG PO (22:04)
[2024-11-06] MEDS: 0.9% Saline Lock 10 ML Syringe IV (22:04)
[2024-11-07] VITALS (10 sets, daily range): BP systolic 104–145; BP diastolic 38–85; PULSE 60–71; RESP 15–18; TEMP 36.6–37.8; O2SAT 93–96
--- OUTSIDE RECORDS SUMMARY | 2024-11-07 00:01 | XMS RPT_ITS | CCD ---
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 [Cellulitis of right lower limb] Onset: 10-26-2024 03-20-2024 Episodic Skull and face fractures (4 sources) Fracture of nasal bones, initial encounter for closed fracture; 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: [Closed fracture of nasal bones] Onset: 11-03-2024 11-02-2024 Episodic Superficial injury; contusion (15 sources) Hematoma of neck; 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: [Contusion of unspecified part of neck, initial encounter] 11-02-2024 Episodic Unclassified (12 sources) Long-term drug therapy; 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: [Encounter for therapeutic drug level monitoring] Onset: 09-04-2015 09-04-2015 Past or Other Problems Problem Classification Problem Date Documented Da te Episodic/Chronic Open wounds of extremities (1 source) Unspecified [...] Test Name Value Interpretation Reference Range Facility Absolute lymphocyte countOrd ered By: Cash Zarate on 11-06-2024 Lymphocytes Auto (Unsp spec) [#/Vol] 1.10 10*3/uL 0.83-4.51 [facility] Absolute neutrophil countOrd ered By: Cash Zarate on 11-06-2024 Neutrophils (Bld) [#/Vol] 6.3 10*3/uL 2.0-7.7 [facility] Anion gap in Serum or Plasma Ordered By: Wei Sandhu on 11-06-2024 Anion gap [Moles/Vol] 12 mmol/L 5-15 [facility] Automated lymphocyte count a s percentage of total leukocytesOrdered By: Cash Zarate on 11-06-2024 Lymphocytes/100 WBC Auto (Unsp spec) 12.9 % Low 19-41 [facility] BUN/creatinine ratioOrdered By: Wei Sandhu on 11-06-2024 Urea nitrogen/Creatinine [Mass ratio] 23.6 mg/mg High 10-20 [facility] Basophil percentageOrdered B y: Cash Zarate on 11-06-2024 Basophils/100 WBC (Bld) 0.8 % 0-1 [facility] Carbon dioxide, total [Moles /volume] in Central venous bloodOrdered By: Wei Sandhu on 11-06-2024 CO2 [Moles/Vol] 26.0 mmol/L 21.0-32.0 [facility] Chloride assayOrdered By: Deepak Sandhu on 11-06-2024 Chloride [Moles/Vol] 99 mmol/L 98-108 [facility] Eosinophil percentageOrdered By: Cash Zarate on 11-06-2024 Eosinophils/100 WBC (Bld) 2.5 % 0-5 [facility] Erythrocyte distribution wid th ratioOrdered By: Wei Sandhu on 11-06-2024 Erythrocyte distribution width (RBC) [Ratio] 21.2 % High 11.6-14.6 [facility] Erythrocyte distribution wid th ratioOrdered By: Cash Zarate on 11-06-2024 Erythrocyte distribution width (RBC) [Ratio] 21.1 % High 11.6-14.6 [facility] Erythrocyte distribution wid th standard deviationOrdered By: Wei Sandhu on 11-06-2024 Erythrocyte distribution width (RBC) [Ratio] 76.7 fl High 35.1-43.9 [facility] Erythrocyte distribution wid th standard deviationOrdered By: Cash Zarate on 11-06-2024 Erythrocyte distribution width (RBC) [Ratio] 78.1 fl High 35.1-43.9 [facility] Glomerular filtration rate ( GFR) estimation/1.73 sq m using serum, plasma, or whole bOrdered By: Wei Sandhu on 11-06-2024 GFR/1.73 sq M.predicted among non-blacks MDRD (S/P/Bld) [Vol rate/Area] 45 mL/min/{1.73_m2} Low >60 [facility] Comment on above: mL/min/1.73m2 CKD-EP I Creatinine Equation (2020) Hematocrit Auto (Bld) [Volum e fraction]Ordered By: Wei Sandhu on 11-06-2024 Hematocrit (Bld) [Volume fraction] 20.5 % Low 37-47 [facility] Hematocrit Auto (Bld) [Volum e fraction]Ordered By: Cash Zarate on 11-06-2024 Hematocrit (Bld) [Volume fraction] 20.3 % Low 37-47 [facility] Hemoglobin measurementOrdere d By: Wei Sandhu on 11-06-2024 Hemoglobin (Bld) [Mass/Vol] 6.5 g/dL Low 12.0-15.0 [facility] Hemoglobin measurementOrdere d By: Cash Zarate on 11-06-2024 Hemoglobin (Bld) [Mass/Vol] 6.4 g/dL Low 12.0-15.0 [facility] Hypochromatic red blood cell detectionOrdered By: Cash Zarate on 11-06-2024 Hypochromia Ql (Bld) 1+ [facility] Immature granulocytes/100 WB C Auto (Bld)Ordered By: Cash Zarate on 11-06-2024 Immature granulocytes/100 WBC (Bld) 1.300 % High 0.0-0.9 [facility] Comment on above: IG% - Immature Granu locytes (promyelocytes, myelocytes and metamyelocytes) > 1% indicates that a LEFT SHIFT is Present. International normalized rat io (INR) calculationOrdered By: Wei Sandhu on 11-06-2024 INR Coag (Bld) [Relative time] 1.4 {INR} [facility] International normalized rat io (INR) calculationOrdered By: Anupam Lizarraga on 11-06-2024 INR Coag (Bld) [Relative time] 1.5 {INR} [facility] Laboratory - Hematology and Cell countsOrdered By: Cash Zarate on 11-06-2024 Anisocytosis Ql (Bld) 1+ [facility] MCV (mean corpuscular volume ) determinationOrdered By: Wei Sandhu on 11-06-2024 MCV (RBC) [Entitic vol] 101.0 fL High 81-99 [facility] MCV (mean corpuscular volume ) determinationOrdered By: Cash Zarate on 11-06-2024 MCV (RBC) [Entitic vol] 101.5 fL High 81-99 [facility] Mean corpuscular hemoglobin (MCH) determinationOrdered By: Wei Sandhu on 11-06-2024 MCH (RBC) [Entitic mass] 32.0 pg 27.0-32.0 [facility] Mean corpuscular hemoglobin (MCH) determinationOrdered By: Cash Zarate on 11-06-2024 MCH (RBC) [Entitic mass] 32.0 pg 27.0-32.0 [facility] Mean corpuscular hemoglobin concentration (MCHC) determinationOrdered By: Wei Sandhu on 11-06-2024 MCHC (RBC) [Mass/Vol] 31.7 g/dL Low 32-36 [facility] Mean corpuscular hemoglobin concentration (MCHC) determinationOrdered By: Cash Zarate on 11-06-2024 MCHC (RBC) [Mass/Vol] 31.5 g/dL Low 32-36 [facility] Mean platelet volume determi nationOrdered By: Wei Sandhu on 11-06-2024 Platelet mean volume (Bld) [Entitic vol] 10.9 fL 6.2-12.0 [facility] Mean platelet volume determi nationOrdered By: Cash Zarate on 11-06-2024 Platelet mean volume (Bld) [Entitic vol] 10.7 fL 6.2-12.0 [facility] Monocyte percentageOrdered B y: Cash Zarate on 11-06-2024 Monocytes/100 WBC (Bld) 9.1 % 0-10 [facility] Neutrophil percentageOrdered By: Cash Zarate on 11-06-2024 Neutrophils/100 WBC (Bld) 73.4 % High 47-70 [facility] Nucleated red blood cell per centageOrdered By: Cash Zarate on 11-06-2024 Nucleated RBC/100 WBC (Bld) [Ratio] 2.2 % 0-5 [facility] Platelet countOrdered By: Deepak Sandhu on 11-06-2024 Platelets (Bld) [#/Vol] 248 10*3/uL 150-450 [facility] Platelet countOrdered By: Sherrie Zarate on 11-06-2024 Platelets (Bld) [#/Vol] 242 10*3/uL 150-450 [facility] Potassium measurement (mass/ volume)Ordered By: Wei Sandhu on 11-06-2024 Potassium (Unsp spec) [Mass/Vol] 4.3 mmol/L 3.3-5.1 [facility] Prothrombin timeOrdered By: Wei Sandhu on 11-06-2024 PT Coag (PPP) [Time] 17.0 s High 11.7-14.9 [facility] Prothrombin timeOrdered By: Anupam Lizarraga on 11-06-2024 PT Coag (PPP) [Time] 18.0 s High 11.7-14.9 [facility] RBC Auto (Bld) [#/Vol]Ordere d By: Wei Sandhu on 11-06-2024 RBC (Bld) [#/Vol] 2.03 10*6/uL Low 4.2-5.4 [facility] RBC Auto (Bld) [#/Vol]Ordere d By: Cash Zarate on 11-06-2024 RBC (Bld) [#/Vol] 2.00 10*6/uL Low 4.2-5.4 [facility] Serum creatinine measurement (mass/volume)Ordered By: Wei Sandhu on 11-06-2024 Creatinine [Mass/Vol] 1.23 mg/dL High 0.70-1.20 [facility] Serum glucose measurement (m ass/volume)Ordered By: Wei Sandhu on 11-06-2024 Glucose [Mass/Vol] 143 mg/dL High 70-99 [facility] Serum or plasma calcium darlene urement (mass/volume)Ordered By: Wei Sandhu on 11-06-2024 Calcium [Mass/Vol] 9.4 mg/dL 7.6-11.0 [facility] Serum or plasma urea nitroge n measurement (mass/volume)Ordered By: Wei Sandhu on 11-06-2024 Urea nitrogen [Mass/Vol] 29 mg/dL High 4-19 [facility] Sodium levelOrdered By: Odalys Sandhu on 11-06-2024 Sodium [Moles/Vol] 137 mmol/L 133-145 [facility] Stool gastrointestinal hemog lobin detection by immunologic methodOrdered By: Wei Sandhu on 11-06-2024 Lower GI hemoglobin IA Ql (Stl) Positive Abnormal [facility] White blood cell (WBC) count Ordered By: Wei Sandhu on 11-06-2024 WBC (Bld) [#/Vol] 9.7 10*3/uL 4.4-11.0 [facility] White blood cell (WBC) count Ordered By: Cash Zarate on 11-06-2024 WBC (Bld) [#/Vol] 8.6 10*3/uL 4.4-11.0 [facility] Absolute lymphocyte countOrd ered By: Cash Zarate on 11-03-2024 Lymphocytes Auto (Unsp spec) [#/Vol] 1.34 10*3/uL 0.83-4.51 [facility] Absolute neutrophil countOrd ered By: Cash Zarate on 11-03-2024 Neutrophils (Bld) [#/Vol] 7.0 10*3/uL 2.0-7.7 [facility] Activated partial thrombopla stin time (aPTT) in platelet poor plasma by coagulation aOrdered By: Cash Zarate on 11-03-2024 aPTT Coag (PPP) [Time] 33.5 s 24.1-36.2 [facility] Anion gap in Serum or Plasma Ordered By: Cash Zarate on 11-03-2024 Anion gap [Moles/Vol] 16 mmol/L High 5-15 [facility] Automated lymphocyte count a s percentage of total leukocytesOrdered By: Cash Zarate on 11-03-2024 Lymphocytes/100 WBC Auto (Unsp spec) 14.5 % Low 19-41 [facility] BUN/creatinine ratioOrdered By: Cash Zarate on 11-03-2024 Urea nitrogen/Creatinine [Mass ratio] 17.8 mg/mg 10-20 [facility] Basic Metabolic Profile (BMP )on 11-03-2024 Calcium [Mass/Vol] 9.8 mg/dL Normal 7.6-11.0 [facility] Comment on above: Performed By: #### L 500.2500, L300.3900, M100.7900, L100.0100 ####[facility] [address] [place], [place], [id number] Basophil percentageOrdered B y: Cash Zarate on 11-03-2024 Basophils/100 WBC (Bld) 0.4 % 0-1 [facility] Blood manual differential co mment interpretation (narrative result)Ordered By: Cash Zarate on 11-03-2024 Manual differential comment Nicolas (Bld) [Interp] SCANNED [facility] CBC W/Diff, Automatedon Anisocytosis Ql (Bld) 2+ Normal [facility] Comment on above: Performed By: #### L 500.2500, L300.3900, M100.7900, L100.0100 ####[facility] [address] [place], [place], [id number] SMEAR COMMENT SCANNED Normal [facility] Comment on above: Performed By: #### L 500.2500, L300.3900, M100.7900, L100.0100 ####[facility] [address] [place], [place], [id number] CTA Abd/Pelvis W/WO Contrast on 11-03-2024 CTA Abd/Pelvis W/WO Contrast Normal [facility] Carbon dioxide, total [Moles /volume] in Central venous bloodOrdered By: Cash Zarate on 11-03-2024 CO2 [Moles/Vol] 24.2 mmol/L 21.0-32.0 [facility] Chloride assayOrdered By: Sherrie Zarate on 11-03-2024 Chloride [Moles/Vol] 98 mmol/L 98-108 [facility] Emergency Department Summary on 11-03-2024 Emergency Department Summary Normal [facility] Eosinophil percentageOrdered By: Cash Zarate on 11-03-2024 Eosinophils/100 WBC (Bld) 0.0 % 0-5 [facility] Erythrocyte distribution wid th ratioOrdered By: Cash Zarate on 11-03-2024 Erythrocyte distribution width (RBC) [Ratio] 20.2 % High 11.6-14.6 [facility] Erythrocyte distribution wid th standard deviationOrdered By: Cash Zarate on 11-03-2024 Erythrocyte distribution width (RBC) [Ratio] 72.0 fl High 35.1-43.9 [facility] Glomerular filtration rate ( GFR) estimation/1.73 sq m using serum, plasma, or whole bOrdered By: Cash Zarate on 11-03-2024 GFR/1.73 sq M.predicted among non-blacks MDRD (S/P/Bld) [Vol rate/Area] 36 mL/min/{1.73_m2} Low >60 [facility] Comment on above: mL/min/1.73m2 CKD-EP I Creatinine Equation (2020) Hematocrit Auto (Bld) [Volum e fraction]Ordered By: Cash Zarate on 11-03-2024 Hematocrit (Bld) [Volume fraction] 26.1 % Low 37-47 [facility] Hemoglobin measurementOrdere d By: Cash Zarate on 11-03-2024 Hemoglobin (Bld) [Mass/Vol] 8.5 g/dL Low 12.0-15.0 [facility] Immature granulocytes/100 WB C Auto (Bld)Ordered By: Cash Zarate on 11-03-2024 Immature granulocytes/100 WBC (Bld) 0.600 % 0.0-0.9 [facility] Comment on above: IG% - Immature Granu locytes (promyelocytes, myelocytes and metamyelocytes) > 1% indicates that a LEFT SHIFT is Present. International normalized rat io (INR) calculationOrdered By: Cash Zarate on 11-03-2024 INR Coag (Bld) [Relative time] 4.4 {INR} High [facility] Comment on above: CRITICAL VALUE EARLY D TO [id number] Dawson Contreras.RESULTS READ BACK BY SAME. Laboratory - Hematology and Cell countsOrdered By: Cash Zarate on 11-03-2024 Anisocytosis Ql (Bld) 2+ [facility] MCV (mean corpuscular volume ) determinationOrdered By: Cash Zarate on 11-03-2024 MCV (RBC) [Entitic vol] 97.0 fL 81-99 [facility] Mean corpuscular hemoglobin (MCH) determinationOrdered By: Cash Zarate on 11-03-2024 MCH (RBC) [Entitic mass] 31.6 pg 27.0-32.0 [facility] Mean corpuscular hemoglobin concentration (MCHC) determinationOrdered By: Cash Zarate on 11-03-2024 MCHC (RBC) [Mass/Vol] 32.6 g/dL 32-36 [facility] Mean platelet volume determi nationOrdered By: Cash Zarate on 11-03-2024 Platelet mean volume (Bld) [Entitic vol] 11.0 fL 6.2-12.0 [facility] Monocyte percentageOrdered B y: Cash Zarate on 11-03-2024 Monocytes/100 WBC (Bld) 8.6 % 0-10 [facility] Neutrophil percentageOrdered By: Cash Zarate on 11-03-2024 Neutrophils/100 WBC (Bld) 75.9 % High 47-70 [facility] Nucleated red blood cell per centageOrdered By: Cash Zarate on 11-03-2024 Nucleated RBC/100 WBC (Bld) [Ratio] 2.4 % 0-5 [facility] Partial Thromboplast Timeon 11-03-2024 aPTT Coag (Bld) [Time] 33.5 s Normal 24.1-36.2 [facility] Comment on above: Order Comment: REDRA W. PREVIOUS SPECIMEN REJECTED DUE TOQNS. 11/03/246 Linda Zapata. Performed By: #### L 300.4310, L300.3900 ####[facility] [address] [place], [address] Platelet countOrdered By: Sherrie Zarate on 11-03-2024 Platelets (Bld) [#/Vol] 246 10*3/uL 150-450 [facility] Potassium measurement (mass/ volume)Ordered By: Cash Zarate on 11-03-2024 Potassium (Unsp spec) [Mass/Vol] 4.3 mmol/L 3.3-5.1 [facility] Prothrombin Time w/INRon INR Coag (PPP) [Relative time] 4.4 {INR} Invalid Interpretation Code [facility] Comment on above: Order Comment: REDRA W. PREVIOUS SPECIMEN REJECTED DUE TOQNS. 11/03/24355 Linda Zapata. Result Comment: CRIT ICAL VALUE CALLED TO [id number] Dawson Contreras.RESULTS READ BACK BY SAME. Performed By: #### L 300.4310, L300.3900 ####[facility] [address] [place], [address] PT Coag (PPP) [Time] 42.8 s High 11.7-14.9 [facility] Comment on above: Order Comment: REDRA W. PREVIOUS SPECIMEN REJECTED DUE TOQNS. 11/03/24355 Linda Zapata. Performed By: #### L 300.4310, L300.3900 ####[facility] [address] [place], [address] INR Normal [facility] Comment on above: Result Comment: This specimen has been REJECTED due to Laboratory criteria:Quanity Not Sufficient.STEPHANIE has been notified of need of recollection.11/03/24354 Linda Zapata Performed By: #### L 500.2500, L300.3900, M100.7900, L100.0100 ####[facility] [address] [place], [address] PROTIME Normal 11.7-14.9 [facility] Comment on above: Result Comment: This specimen has been REJECTED due to Laboratory criteria:Quanity Not Sufficient.STEPHANIE has been notified of need of recollection.11/03/24354 Linda Zapata Performed By: #### L 500.2500, L300.3900, M100.7900, L100.0100 ####[facility] [address] [place], [address] Prothrombin timeOrdered By: Cash Zarate on 11-03-2024 PT Coag (PPP) [Time] 42.8 s High 11.7-14.9 [facility] RBC Auto (Bld) [#/Vol]Ordere d By: Cash Zarate on 11-03-2024 RBC (Bld) [#/Vol] 2.69 10*6/uL Low 4.2-5.4 [facility] Serum creatinine measurement (mass/volume)Ordered By: Cash Zarate on 11-03-2024 Creatinine [Mass/Vol] 1.49 mg/dL High 0.70-1.20 [facility] Serum glucose measurement (m ass/volume)Ordered By: Cash Zarate on 11-03-2024 Glucose [Mass/Vol] 209 mg/dL High 70-99 [facility] Serum or plasma calcium darlene urement (mass/volume)Ordered By: Cash Zarate on 11-03-2024 Calcium [Mass/Vol] 9.8 mg/dL 7.6-11.0 [facility] Serum or plasma urea nitroge n measurement (mass/volume)Ordered By: Cash Zarate on 11-03-2024 Urea nitrogen [Mass/Vol] 27 mg/dL High 4-19 [facility] Sodium levelOrdered By: Franklin Zarate on 11-03-2024 Sodium [Moles/Vol] 139 mmol/L 133-145 [facility] Stool Occult Blood iFOBon STOB Negative Normal [facility] Comment on above: Performed By: #### L 500.2500, L300.3900, M100.7900, L100.0100 ####[facility] [address] [facility] [address] [place], [place], [address] Stool gastrointestinal hemog lobin detection by immunologic methodOrdered By: Cash Zarate on 11-03-2024 Lower GI hemoglobin IA Ql (Stl) [facility] Type AND Screenon 11-03-2024 ABO and Rh group Nom (Bld) Blood group A Rh(D) positive Normal [facility] Comment on above: Order Comment: A Performed By: #### B TS ####[facility] [address] [facility] [address] [place], [place], [address] White blood cell (WBC) count Ordered By: Cash Zarate on 11-03-2024 WBC (Bld) [#/Vol] 9.3 10*3/uL 4.4-11.0 [facility] Absolute lymphocyte countOrd ered By: Michaela Sagastume on 11-02-2024 Lymphocytes Auto (Unsp spec) [#/Vol] 3.85 10*3/uL 0.83-4.51 [facility] Absolute neutrophil countOrd ered By: Michaela Sagastume on 11-02-2024 Neutrophils (Bld) [#/Vol] 3.4 10*3/uL 2.0-7.7 [facility] Anion gap in Serum or Plasma Ordered By: Michaela Sagastume on 11-02-2024 Anion gap [Moles/Vol] 18 mmol/L High 5-15 [facility] Ankle min 3 Viewson 11-03-19 25 Ankle min 3 Views Normal [facility] Automated lymphocyte count a s percentage of total leukocytesOrdered By: Michaela Sagastume on 11-02-2024 Lymphocytes/100 WBC Auto (Unsp spec) 45.3 % High 19-41 [facility] BUN/creatinine ratioOrdered By: Michaela Sagastume on 11-02-2024 Urea nitrogen/Creatinine [Mass ratio] 16.9 mg/mg 10-20 [facility] Basophil percentageOrdered B y: Michaela Tanika on 11-02-2024 Basophils/100 WBC (Bld) 1.4 % High 0-1 [facility] Bilirubin, totalOrdered By: Michaela Sagastume on 11-02-2024 Bilirubin [Mass/Vol] 0.70 mg/dL 0.00-1.30 [facility] Brain/Head without Contrasto n 11-02-2024 Brain/Head without Contrast Normal [facility] CBC W/Diff, Automatedon Anisocytosis Ql (Bld) 1+ Normal [facility] Comment on above: Performed By: #### L 300.3900, L100.0100 ####[facility] [address] [place], [place], [id number] PLT EST A Normal ADEQ [facility] Comment on above: Performed By: #### L 300.3900, L100.0100 ####[facility] [address] [place], [place], [id number] CT Chest, Abd, Pel w/Contras ton 11-02-2024 CT Chest, Abd, Pel w/Contrast Normal [facility] CTA Neck W/WO Contraston CTA Neck W/WO Contrast Normal [facility] Carbon dioxide, total [Moles /volume] in Central venous bloodOrdered By: Michaela Sagastume on 11-02-2024 CO2 [Moles/Vol] 20.3 mmol/L Low 21.0-32.0 [facility] Chloride assayOrdered By: Flcaa Sagastume on 11-02-2024 Chloride [Moles/Vol] 102 mmol/L 98-108 [facility] Comprehensive Metabolic Prof ilon 11-02-2024 Albumin [Mass/Vol] 3.9 g/dL Normal 3.4-4.8 [facility] Comment on above: Performed By: #### L 501.2450, L500.4050 ####[facility] [address] [place], [address] Albumin/Globulin [Mass ratio] 1.1 {ratio} Normal 0.9-2.4 [facility] Comment on above: Performed By: #### L 501.2450, L500.4050 ####[facility] [address] [place], [address] ALK PHOS 82 U/L Normal 35-104 [facility] Comment on above: Performed By: #### L 501.2450, L500.4050 ####[facility] [address] [place], [address] ALT [Catalytic activity/Vol] 10 U/L Normal <=34 [facility] Comment on above: Performed By: #### L 501.2450, L500.4050 ####[facility] [address] [place], [address] AST [Catalytic activity/Vol] 39 U/L High <=31 [facility] Comment on above: Performed By: #### L 501.2450, L500.4050 ####[facility] [address] [place], [address] Bilirubin [Mass/Vol] 0.70 mg/dL Normal 0.00-1.30 [facility] Comment on above: Performed By: #### L 501.2450, L500.4050 ####[facility] [address] [place], [address] BUN/CRE 16.9 RATIO Normal 10-20 [facility] Comment on above: Performed By: #### L 501.2450, L500.4050 ####[facility] [address] [place], [address] Calcium [Mass/Vol] 9.4 mg/dL Normal 7.6-11.0 [facility] Comment on above: Performed By: #### L 501.2450, L500.4050 ####[facility] [address] [place], [address] Chloride [Moles/Vol] 102 mmol/L Normal 98-108 [facility] Comment on above: Performed By: #### L 501.2450, L500.4050 ####[facility] [address] [place], [address] CO2 [Moles/Vol] 20.3 mmol/L Low 21.0-32.0 [facility] Comment on above: Performed By: #### L 501.2450, L500.4050 ####[facility] [address] [place], [address] Creatinine [Mass/Vol] 1.14 mg/dL Normal 0.70-1.20 [facility] Comment on above: Performed By: #### L 501.2450, L500.4050 ####[facility] [address] [place], [address] ECRCL 39.28 ml/min Low 50-250 [facility] Comment on above: Performed By: #### L 501.2450, L500.4050 ####[facility] [address] [place], [address] GAP 18 High 5-15 [facility] Comment on above: Performed By: #### L 501.2450, L500.4050 ####[facility] [address] [place], [address] GFR/1.73 sq M.predicted among non-blacks MDRD (S/P/Bld) [Vol rate/Area] 49 mL/min/{1.73_m2} Low >60 [facility] Comment on above: Result Comment: mL/m in/1.73m2 CKD-EPI Creatinine Equation (2020) Performed By: #### L 501.2450, L500.4050 ####[facility] [address] [place], [address] Globulin (S) [Mass/Vol] 3.4 g/dL Normal 2.2-4.2 [facility] Comment on above: Performed By: #### L 501.2450, L500.4050 ####[facility] [address] [place], [address] Glucose [Mass/Vol] 132 mg/dL High 70-99 [facility] Comment on above: Performed By: #### L 501.2450, L500.4050 ####[facility] [address] [place], [address] Potassium [Moles/Vol] 3.7 mmol/L Normal 3.3-5.1 [facility] Comment on above: Performed By: #### L 501.2450, L500.4050 ####[facility] [address] [place], [address] Sodium [Moles/Vol] 140 mmol/L Normal 133-145 [facility] Comment on above: Performed By: #### L 501.2450, L500.4050 ####[facility] [address] [place], [address] T PROT 7.3 g/dL Normal 5.9-8.4 [facility] Comment on above: Performed By: #### L 501.2450, L500.4050 ####[facility] [address] [place], [address] Urea nitrogen [Mass/Vol] 19 mg/dL Normal 4-19 [facility] Comment on above: Performed By: #### L 501.2450, L500.4050 ####[facility] [address] [place], [address] Eosinophil percentageOrdered By: Michaela Sagastume on 11-02-2024 Eosinophils/100 WBC (Bld) 3.6 % 0-5 [facility] Erythrocyte distribution wid th ratioOrdered By: Michaela Sagastume on 11-02-2024 Erythrocyte distribution width (RBC) [Ratio] 20.0 % High 11.6-14.6 [facility] Erythrocyte distribution wid th standard deviationOrdered By: Michaela Sagastume on 11-02-2024 Erythrocyte distribution width (RBC) [Ratio] 73.7 fl High 35.1-43.9 [facility] Glomerular filtration rate ( GFR) estimation/1.73 sq m using serum, plasma, or whole bOrdered By: Michaela Sagastume on 11-02-2024 GFR/1.73 sq M.predicted among non-blacks MDRD (S/P/Bld) [Vol rate/Area] 49 mL/min/{1.73_m2} Low >60 [facility] Comment on above: mL/min/1.73m2 CKD-EP I Creatinine Equation (2020) Hematocrit Auto (Bld) [Volum e fraction]Ordered By: Michaela Sagastume on 11-02-2024 Hematocrit (Bld) [Volume fraction] 31.5 % Low 37-47 [facility] Hemoglobin measurementOrdere d By: Michaela Sagastume on 11-02-2024 Hemoglobin (Bld) [Mass/Vol] 10.1 g/dL Low 12.0-15.0 [facility] Immature granulocytes/100 WB C Auto (Bld)Ordered By: Michaela Sagastume on 11-02-2024 Immature granulocytes/100 WBC (Bld) 1.200 % High 0.0-0.9 [facility] Comment on above: IG% - Immature Granu locytes (promyelocytes, myelocytes and metamyelocytes) > 1% indicates that a LEFT SHIFT is Present. International normalized rat io (INR) calculationOrdered By: Michaela Sagastume on 11-02-2024 INR Coag (Bld) [Relative time] 2.6 {INR} [facility] Knee 4 or More Viewson 11-02 Knee [address] [facility] Knee 4 or More Views [address] [facility] Laboratory - Chemistry and C hemistry - challengeOrdered By: Michaela Sagastume on 11-02-2024 AST [Catalytic activity/Vol] 39 U/L High <32 [facility] Laboratory - Hematology and Cell countsOrdered By: Michaela Sagastume on 11-02-2024 Anisocytosis Ql (Bld) 1+ [facility] Lipaseon 11-02-2024 Lipase [Catalytic activity/Vol] 77 U/L High 13-75 [facility] Comment on above: Result Comment: Philippe cruz note:LIPASE revised reference range effective 22.New Lipase methodology. Expected to produce lower valuesthan the previous assay method.NEW Reference Range: 13 - 75 U/L Performed By: #### L 501.2450, L500.4050 ####[facility] [address] [place], [address] Lipase measurementOrdered By : Michaela Sagastume on 11-02-2024 Lipase [Catalytic activity/Vol] 77 U/L High 13-75 [facility] Comment on above: Please note:LIPASE r evised reference range effective 22. New Lipase methodology. Expected to produce lower values than the previous assay method. NEW Reference Range: 13 - 75 U/L MCV (mean corpuscular volume ) determinationOrdered By: Michaela Sagastume on 11-02-2024 MCV (RBC) [Entitic vol] 99.7 fL High 81-99 [facility] Mean corpuscular hemoglobin (MCH) determinationOrdered By: Michaela Sagastume on 11-02-2024 MCH (RBC) [Entitic mass] 32.0 pg 27.0-32.0 [facility] Mean corpuscular hemoglobin concentration (MCHC) determinationOrdered By: Michaela Sagastume on 11-02-2024 MCHC (RBC) [Mass/Vol] 32.1 g/dL 32-36 [facility] Mean platelet volume determi nationOrdered By: Michaela Sagastume on 11-02-2024 Platelet mean volume (Bld) [Entitic vol] 11.2 fL 6.2-12.0 [facility] Monocyte percentageOrdered B y: Michaela Sagastume on 11-02-2024 Monocytes/100 WBC (Bld) 8.4 % 0-10 [facility] Neutrophil percentageOrdered By: Michaela Sagastume on 11-02-2024 Neutrophils/100 WBC (Bld) 40.1 % Low 47-70 [facility] Nucleated red blood cell per centageOrdered By: Michaela Sagastume on 11-02-2024 Nucleated RBC/100 WBC (Bld) [Ratio] 0.9 % 0-5 [facility] Platelet countOrdered By: Flaca Sagastume on 11-02-2024 Platelets (Bld) [#/Vol] 253 10*3/uL 150-450 [facility] Platelet estimateOrdered By: Michaela Sagastume on 11-02-2024 Platelets LM Ql (Bld) A ADEQ [facility] Potassium measurement (mass/ volume)Ordered By: Michaela Sagastume on 11-02-2024 Potassium (Unsp spec) [Mass/Vol] 3.7 mmol/L 3.3-5.1 [facility] Prothrombin Time w/INRon INR Coag (PPP) [Relative time] 2.6 {INR} Normal [facility] Comment on above: Performed By: #### L 300.3900, L100.0100 ####[facility] [address] [place], [address] PT Coag (PPP) [Time] 28.6 s High 11.7-14.9 [facility] Comment on above: Performed By: #### L 300.3900, L100.0100 ####[facility] [address] [place], [address] Prothrombin timeOrdered By: Michaela Sagastume on 11-02-2024 PT Coag (PPP) [Time] 28.6 s High 11.7-14.9 [facility] RBC Auto (Bld) [#/Vol]Ordere d By: Michaela Sagastume on 11-02-2024 RBC (Bld) [#/Vol] 3.16 10*6/uL Low 4.2-5.4 [facility] Serum creatinine measurement (mass/volume)Ordered By: Michaela Sagastume on 11-02-2024 Creatinine [Mass/Vol] 1.14 mg/dL 0.70-1.20 [facility] Serum globulin measurementOr dered By: Michaela Sagastume on 11-02-2024 Globulin (S) [Mass/Vol] 3.4 g/dL 2.2-4.2 [facility] Serum glucose measurement (m ass/volume)Ordered By: Michaela Sagastume on 11-02-2024 Glucose [Mass/Vol] 132 mg/dL High 70-99 [facility] Serum or plasma alanine gonzalez otransferase (ALT) measurementOrdered By: Michaela Sagastume on 11-02-2024 ALT [Catalytic activity/Vol] 10 U/L <35 [facility] Serum or plasma albumin darlene urement (mass/volume)Ordered By: Michaela Sagastume on 11-02-2024 Albumin [Mass/Vol] 3.9 g/dL 3.4-4.8 [facility] Serum or plasma albumin/glob ulin mass ratioOrdered By: Michaela Sagastume on 11-02-2024 Albumin/Globulin [Mass ratio] 1.1 {ratio} 0.9-2.4 [facility] Serum or plasma alkaline millie sphatase measurementOrdered By: Michaela Sagastume on 11-02-2024 ALP [Catalytic activity/Vol] 82 U/L 35-104 [facility] Serum or plasma calcium darlene urement (mass/volume)Ordered By: Michaela Sagastume on 11-02-2024 Calcium [Mass/Vol] 9.4 mg/dL 7.6-11.0 [facility] Serum or plasma urea nitroge n measurement (mass/volume)Ordered By: Michaela Sagastume on 11-02-2024 Urea nitrogen [Mass/Vol] 19 mg/dL 4-19 [facility] Shoulder min 2 Viewson 11-02 Shoulder min [address] [facility] Sinus/Facial Boneon 11-03-19 25 Sinus/Facial Bone Normal [facility] Sodium levelOrdered By: Michaela Sagastume on 11-02-2024 Sodium [Moles/Vol] 140 mmol/L 133-145 [facility] Spine Cervical without Contr ason 11-02-2024 Spine Cervical without Contras Normal [facility] Tibia Fibula 2 Viewson 11-02 Tibia Fibula [address] [facility] Total proteinOrdered By: Desirae lazaro Tanika on 11-02-2024 Protein [Mass/Vol] 7.3 g/dL 5.9-8.4 [facility] White blood cell (WBC) count Ordered By: Michaela Tanika on 11-02-2024 WBC (Bld) [#/Vol] 8.5 10*3/uL 4.4-11.0 [facility] International normalized rat io (INR) calculationOrdered By: Anupam Lizarraga on 10-05-2024 INR Coag (Bld) [Relative time] 2.2 {INR} [facility] Prothrombin Time w/INRon INR Coag (PPP) [Relative time] 2.2 {INR} Normal [facility] Comment on above: Performed By: #### L 300.3900 ####[facility] [address] [place], [place], [phone] PT Coag (PPP) [Time] 24.9 s High 11.7-14.9 [facility] Comment on above: Performed By: #### L 300.3900 ####[facility] [address] [place], [place], [phone] Prothrombin timeOrdered By: Anupam Lizarraga on 10-05-2024 PT Coag (PPP) [Time] 24.9 s High 11.7-14.9 [facility] International normalized rat io (INR) calculationOrdered By: Anupam Lizarraga on 09-14-2024 INR Coag (Bld) [Relative time] 2.3 {INR} [facility] Prothrombin Time w/INRon INR Coag (PPP) [Relative time] 2.3 {INR} Normal [facility] Comment on above: Performed By: #### L 300.3900 ####[facility] [address] [place], [place], [phone] PT Coag (PPP) [Time] 25.4 s High 11.7-14.9 [facility] Comment on above: Performed By: #### L 300.3900 ####[facility] [address] [place], [address] Prothrombin timeOrdered By: Anupam Lizarraga on 09-14-2024 PT Coag (PPP) [Time] 25.4 s High 11.7-14.9 [facility] Cardiology Visit Reporton Cardiology Visit Report Normal [facility] Pacemaker Checkon 08-30-2024 Pacemaker Check Normal [facility] Prothrombin Time w/INRon INR Coag (PPP) [Relative time] 1.8 {INR} Normal [facility] Comment on above: Performed By: #### L 300.3900 ####[facility] [address] [place], [address] PT Coag (PPP) [Time] 21.4 s High 11.7-14.9 [facility] Comment on above: Performed By: #### L 300.3900 ####[facility] [address] [place], [address] Culture, Anaerobic Any Sourc renita 08-21-2024 CUAN Normal [facility] Comment on above: Performed By: #### M 100.2000, M100.3000, M100.4001 ####[facility] [address] [place], [address] Wound Cultureon 08-21-2024 WC List Antibiotics Las t 48 Hours? Cefrouxin, Doxycycline List Antibiotics to be Started? None No growth aerobically. Normal [facility] Comment on above: Performed By: #### M 100.2000, M100.3000, M100.4001 ####[facility] [address] [place], [address] Gram Stainon 08-18-2024 GS List Antibiotics Las t 48 Hours? Cefrouxin, Doxycycline List Antibiotics to be Started? None Gram Stain Rare Gram positive cocci Rare White Blood Cells No Epithelial cells Normal [facility] Comment on above: Performed By: #### M 100.2000, M100.3000, M100.4001 ####[facility] [address] [facility] [place], [address] Anaerobic cultureOrdered By: Zarina Fish on 08-17-2024 Bacteria identified Anaer cx Nom (Unsp spec) Anaerobic cocci Abnormal [facility] Bacteria identified Anaer cx Nom (Unsp spec)Ordered By: Zarina Fish on 08-17-2024 Anaerobic Culture Anaerobic cocci Abnormal [facility] Gram stainOrdered By: Prisca Fish on 08-17-2024 Microscopic observation Gram stain Nom (Unsp spec) [facility] International normalized rat io (INR) calculationOrdered By: Anupam Zia on 08-17-2024 INR Coag (Bld) [Relative time] 3.1 {INR} [facility] Prothrombin Time w/INRon INR Coag (PPP) [Relative time] 3.1 {INR} Normal [facility] Comment on above: Performed By: #### L 300.3900 ####[facility] [address] [facility] [place], [address] PT Coag (PPP) [Time] 32.7 s High 11.7-14.9 [facility] Comment on above: Performed By: #### L 300.3900 ####[facility] [address] [place], [address] Prothrombin timeOrdered By: Anupam Zia on 08-17-2024 PT Coag (PPP) [Time] 32.7 s High 11.7-14.9 [facility] Routine wound cultureOrdered By: Zarina Fish on 08-17-2024 Wound Culture No growth aerobically. [facility] International normalized rat io (INR) calculationOrdered By: Anupam Zia on 07-27-2024 INR Coag (Bld) [Relative time] 2.2 {INR} [facility] Prothrombin Time w/INRon INR Coag (PPP) [Relative time] 2.2 {INR} Normal [facility] Comment on above: Performed By: #### L 300.3900 ####[facility] [address] [place], [address] PT Coag (PPP) [Time] 24.8 s High 11.7-14.9 [facility] Comment on above: Performed By: #### L 300.3900 ####[facility] [address] [place], [address] Prothrombin timeOrdered By: Anupam Lizarraga on 07-27-2024 PT Coag (PPP) [Time] 24.8 s High 11.7-14.9 [facility] Consultation - Infectious Dx on 07-12-2024 Consultation - Infectious Dx Normal [facility] Prothrombin Time w/INRon INR Coag (PPP) [Relative time] 2.1 {INR} Normal [facility] Comment on above: Performed By: #### L 300.3900 ####[facility] [address] [place], [address] PT Coag (PPP) [Time] 24.0 s High 11.7-14.9 [facility] Comment on above: Performed By: #### L 300.3900 ####[facility] [address] [place], [address] Prothrombin Time w/INRon INR Coag (PPP) [Relative time] 1.5 {INR} Normal [facility] Comment on above: Performed By: #### L 300.3900 ####[facility] [address] [place], [address] PT Coag (PPP) [Time] 18.4 s High 11.7-14.9 [facility] Comment on above: Performed By: #### L 300.3900 ####[facility] [address] [place], [address] International normalized rat io (INR) calculationOrdered By: Anupam Lizarraga on 06-30-2024 INR Coag (Bld) [Relative time] 1.5 {INR} [facility] L3410.9999on 06-30-2024 [facility] Normal . [facility] Comment on above: Order Comment: [id number] 1WOUND CULTURE Result Comment: Test Ordered: [id number] Anaerobic/Aerobic/Gram StainAnaerobic Culture Note: [A ] CB Final report Reference Range: .Result 1 Note: [A ] CB Finegoldia magna Reference Range: .Moderate growthAerobic Culture Note: [A ] CB Final report Reference Range: .Result 1 Comment [A ] Reference Range: .Staphylococcus haemolyticusBased on resistance to [...] .Moderate number of gram positive cocci.Performed at: - [facility] [id number] [place] [id number] Director: Shoaib Ellis PhD, Phone: [phone] Performed By: #### L 9265.9637 ####[facility] [address] [place], [place], [address] Prothrombin Time w/INRon INR Coag (PPP) [Relative time] 1.5 {INR} Normal [facility] Comment on above: Performed By: #### L 442.7043 ####[facility] [address] [place], [place], [address] PT Coag (PPP) [Time] 18.1 s High 11.7-14.9 [facility] Comment on above: Performed By: #### L 300.3900 ####[facility] [address] [place], [place], [phone] Prothrombin timeOrdered By: Anupam Lizarraga on 06-30-2024 PT Coag (PPP) [Time] 18.1 s High 11.7-14.9 [facility] No Panel InformationOrdered By: Zarina Fish on 06-22-2024 Miscellaneous Test COMMENT . [facility] Comment on above: Test Ordered: [id number] Anaerobic/Aerobic/Gram StainAnaerobic Culture Note: [A ] CB [...] .Moderate number of gram positive cocci.Performed at: - [facility] [id number] Director: Shoaib Ellis PhD, Phone: [phone] Extremity Lower without Cont raon 06-08-2024 Extremity Lower without Contra Normal [facility] Prothrombin Time w/INRon INR Coag (PPP) [Relative time] 2.4 {INR} Normal [facility] Comment on above: Order Comment: Comme nts: STANDING ORDER Performed By: #### L 300.3900 ####[facility] [address] [place], [address] PT Coag (PPP) [Time] 26.3 s High 11.7-14.9 [facility] Comment on above: Order Comment: Comme nts: STANDING ORDER Performed By: #### L 300.3900 ####[facility] [address] [place], [address] Absolute neutrophil countOrd ered By: Zarina Fish on 06-01-2024 Neutrophils (Bld) [#/Vol] 3.2 10*3/uL 2.0-7.7 [facility] Ankle 2 Viewson 06-01-2024 Ankle 2 Views Normal [facility] Basic Metabolic Profile (BMP )on 06-01-2024 BUN/CRE 28.0 RATIO High 10-20 [facility] Comment on above: Performed By: #### L 501.1400, L500.2500, L100.0100 ####[facility] [address] [place], [address] CA,Total 9.8 mg/dL Normal 8.5-10.1 [facility] Comment on above: Performed By: #### L 501.1400, L500.2500, L100.0100 ####[facility] [address] [place], [address] Chloride [Moles/Vol] 107 mmol/L Normal 98-107 [facility] Comment on above: Performed By: #### L 501.1400, L500.2500, L100.0100 ####[facility] [address] [place], [address] CO2 [Moles/Vol] 28.0 mmol/L Normal 21.0-32.0 [facility] Comment on above: Performed By: #### L 501.1400, L500.2500, L100.0100 ####[facility] [address] [place], [address] Creatinine [Mass/Vol] 0.96 mg/dL Normal 0.55-1.02 [facility] Comment on above: Result Comment: The validity of the calculated GFR GFRAA in patients over70 years has not been determined. Clinical correlation isessential. Performed By: #### L 501.1400, L500.2500, L100.0100 ####[facility] [address] [place], [address] EST GFR - AA 72 mL/min Normal >60 [facility] Comment on above: Result Comment: Afri can [place] GFR Calc Performed By: #### L 501.1400, L500.2500, L100.0100 ####[facility] [address] [place], [address] GAP 5 Normal 5-15 [facility] Comment on above: Performed By: #### L 501.1400, L500.2500, L100.0100 ####[facility] [address] [place], [address] GFR/1.73 sq M.predicted among non-blacks MDRD (S/P/Bld) [Vol rate/Area] 60 mL/min/{1.73_m2} Normal >60 [facility] Comment on above: Result Comment: Non- GFR Calc Performed By: #### L 501.1400, L500.2500, L100.0100 ####[facility] [address] [place], [address] Glucose [Mass/Vol] 99 mg/dL Normal 74-106 [facility] Comment on above: Performed By: #### L 501.1400, L500.2500, L100.0100 ####[facility] [address] [place], [address] Potassium [Moles/Vol] 4.2 mmol/L Normal 3.5-5.1 [facility] Comment on above: Performed By: #### L 501.1400, L500.2500, L100.0100 ####[facility] [address] [place], [address] Sodium [Moles/Vol] 140 mmol/L Normal 136-145 [facility] Comment on above: Performed By: #### L 501.1400, L500.2500, L100.0100 ####[facility] [address] [place], [address] Urea nitrogen [Mass/Vol] 27 mg/dL High 7-18 [facility] Comment on above: Performed By: #### L 501.1400, L500.2500, L100.0100 ####[facility] [address] [place], [address] Basophil percentageOrdered B y: Zarina Fish on 06-01-2024 Basophils/100 WBC (Bld) 0.9 % 0-1 [facility] Blood urea nitrogen (BUN)/cr eatinine ratioOrdered By: Zarina Fish on 06-01-2024 Urea nitrogen/Creatinine [Mass ratio] 28.0 mg/mg High 10-20 [facility] CBC W/Diff, Automatedon Anisocytosis Ql (Bld) 2+ Normal [facility] Comment on above: Performed By: #### L 501.1400, L500.2500, L100.0100 ####[facility] [address] [place], [address] HYPOCHROMASIA RARE Normal [facility] Comment on above: Performed By: #### L 501.1400, L500.2500, L100.0100 ####[facility] [address] [place], [address] MACROCYTOSIS 2+ Normal [facility] Comment on above: Performed By: #### L 501.1400, L500.2500, L100.0100 ####[facility] [address] [place], [address] PLT EST ADEQUATE Normal ADEQ [facility] Comment on above: Performed By: #### L 501.1400, L500.2500, L100.0100 ####[facility] [address] [place], [address] RED CELL MORPH N CHROM Normal NORM C C [facility] Comment on above: Performed By: #### L 501.1400, L500.2500, L100.0100 ####[facility] [address] [place], [address] Carbon dioxide measurementOr dered By: Zarina Fish on 06-01-2024 CO2 [Moles/Vol] 28.0 mmol/L 21.0-32.0 [facility] Chloride measurementOrdered By: Zarina Fish on 06-01-2024 Chloride [Moles/Vol] 107 mmol/L 98-107 [facility] Eosinophil percentageOrdered By: Zarina Fish on 06-01-2024 Eosinophils/100 WBC (Bld) 5.0 % 0-5 [facility] Erythrocyte distribution wid th ratioOrdered By: Zarina Fish on 06-01-2024 Erythrocyte distribution width (RBC) [Ratio] 20.6 % High 11.6-14.6 [facility] Erythrocyte distribution wid th standard deviationOrdered By: Zarina Fish on 06-01-2024 Erythrocyte distribution width (RBC) [Entitic vol] 74.4 fL High 35.1-43.9 [facility] Estimated glomerular filtrat ion rate (GFR) AmericanOrdered By: Zarina Fish on 06-01-2024 Estimated GFR (MDRD) Amer 72 mL/min >60 [facility] Comment on above: GFR Calc Glomerular filtration rate ( GFR) estimationOrdered By: Zarina Fish on 06-01-2024 Estimated GFR (MDRD) Non-Af Amer 60 mL/min >60 [facility] Comment on above: Non- GFR Calc Glucose measurementOrdered B y: Zarina Fish on 06-01-2024 Glucose [Mass/Vol] 99 mg/dL 74-106 [facility] Hematocrit Auto (Bld) [Volum e fraction]Ordered By: Zarina Fish on 06-01-2024 Hematocrit (Bld) [Volume fraction] 32.1 % Low 37-47 [facility] Hemoglobin measurementOrdere d By: Zarina Fish on 06-01-2024 Hemoglobin (Bld) [Mass/Vol] 10.0 g/dL Low 12.0-15.0 [facility] Hypochromia Ql (Bld)Ordered By: Zarina Fish on 06-01-2024 Hypochromasia RARE [facility] Immature granulocytes/100 WB C Auto (Bld)Ordered By: Zarina Fish on 06-01-2024 Immature granulocytes/100 WBC (Bld) 0.300 % 0.0-0.9 [facility] Comment on above: IG% - Immature Granu locytes (promyelocytes, myelocytes and metamyelocytes) > 1% indicates that a LEFT SHIFT is Present. Laboratory - Hematology and Cell countsOrdered By: Zarina Fish on 06-01-2024 Anisocytosis Ql (Bld) 2+ [facility] Lymphocytes Auto (Unsp spec) [#/Vol]Ordered By: Zarina Fish on 06-01-2024 Lymphocytes (Bld) [#/Vol] 1.70 10*3/uL 0.83-4.51 [facility] Lymphocytes/100 WBC Auto (Un sp spec)Ordered By: Zarina Fish on 06-01-2024 Lymphocytes/100 WBC (Bld) 29.3 % 19-41 [facility] MCV (mean corpuscular volume ) determinationOrdered By: Zarina Fish on 06-01-2024 MCV (RBC) [Entitic vol] 98.5 fL 81-99 [facility] Macrocytes Ql (Bld)Ordered B y: Zarina Fish on 06-01-2024 Macrocytosis 2+ [facility] Mean corpuscular hemoglobin (MCH) determinationOrdered By: Zarina Fish on 06-01-2024 MCH (RBC) [Entitic mass] 30.7 pg 27.0-32.0 [facility] Mean corpuscular hemoglobin concentration (MCHC) determinationOrdered By: Zarina Fish on 06-01-2024 MCHC (RBC) [Mass/Vol] 31.2 g/dL Low 32-36 [facility] Mean platelet volume determi nationOrdered By: Zarina Fish on 06-01-2024 Platelet mean volume (Bld) [Entitic vol] 10.5 fL 6.2-12.0 [facility] Monocyte percentageOrdered B y: Zarina Fish on 06-01-2024 Monocytes/100 WBC (Bld) 9.6 % 0-10 [facility] Neutrophil percentageOrdered By: Zarina Fish on 06-01-2024 Neutrophils/100 WBC (Bld) 54.9 % 47-70 [facility] Nucleated red blood cell per centageOrdered By: Zarina Fish on 06-01-2024 Nucleated RBC/100 WBC (Bld) [Ratio] 0 % 0-5 [facility] Platelet countOrdered By: Georges Fish on 06-01-2024 Platelets (Bld) [#/Vol] 222 10*3/uL 150-450 [facility] Platelets LM Ql (Bld)Ordered By: Zarina Fish on 06-01-2024 Platelet Estimate ADEQUATE ADEQ [facility] Potassium measurementOrdered By: Zarina Fish on 06-01-2024 Potassium [Moles/Vol] 4.2 mmol/L 3.5-5.1 [facility] RBC Auto (Bld) [#/Vol]Ordere d By: Zarina Fish on 06-01-2024 RBC (Bld) [#/Vol] 3.26 10*6/uL Low 4.2-5.4 [facility] RBC morphology finding Nom ( Bld)Ordered By: Zarina Fish on 06-01-2024 Red Blood Cell Morphology N CHROM NORMAL NORM C&C [facility] Serum anion gap measurementO rdered By: Zarina Fish on 06-01-2024 Anion gap [Moles/Vol] 5 mmol/L 5-15 [facility] Serum or plasma calcium darlene urement (mass/volume)Ordered By: Zarina Fish on 06-01-2024 Calcium [Mass/Vol] 9.8 mg/dL 8.5-10.1 [facility] Serum or plasma creatinine m easurement (mass/volume)Ordered By: Zarina Fish on 06-01-2024 Creatinine [Mass/Vol] 0.96 mg/dL 0.55-1.02 [facility] Comment on above: The validity of the calculated GFR & GFRAA in patients over 70 years has not been determined. Clinical correlation is essential. Serum or plasma urea nitroge n measurement (mass/volume)Ordered By: Zarina Fish on 06-01-2024 Urea nitrogen [Mass/Vol] 27 mg/dL High 7-18 [facility] Serum or plasma uric acid me asurement (mass/volume)Ordered By: Zarina Fish on 06-01-2024 Urate [Mass/Vol] 3.8 mg/dL 2.6-6.0 [facility] Comment on above: The drugs N-Acetylcy steine and Metamizole may falsely depress this assay. Sodium levelOrdered By: Enrico Fish on 06-01-2024 Sodium [Moles/Vol] 140 mmol/L 136-145 [facility] Tibia Fibula 2 Viewson 06-01 Tibia Fibula [address] [facility] Uric Acidon 06-01-2024 URIC 3.8 mg/dL Normal 2.6-6.0 [facility] Comment on above: Result Comment: The drugs N-Acetylcysteine and Metamizole may falselydepress this assay. Performed By: #### L 501.1400, L500.2500, L100.0100 ####[facility] [address] [place], [place], [id number] White blood cell (WBC) count Ordered By: Zarina Fish on 06-01-2024 WBC (Bld) [#/Vol] 5.8 10*3/uL 4.4-11.0 [facility] Wound Cultureon 05-25-2024 WC Normal [facility] Comment on above: Performed By: #### M 100.4001, M100.2000, M100.3000 ####[facility] [address] [place], [address] International normalized rat io (INR) calculationOrdered By: Anupam Lizarraga on 05-18-2024 INR Coag (Bld) [Relative time] 1.7 {INR} [facility] Prothrombin Time w/INRon INR Coag (PPP) [Relative time] 1.7 {INR} [facility] Comment on above: Performed By: #### L 300.3900 ####[facility] [address] [place], [address] PT Coag (PPP) [Time] 19.9 s High 11.7-14.9 [facility] Comment on above: Performed By: #### L 300.3900 ####[facility] [address] [place], [address] Prothrombin timeOrdered By: Anupam Lizarraga on 05-18-2024 PT Coag (PPP) [Time] 19.9 s High 11.7-14.9 [facility] Culture, Anaerobic Any Sourc renita 05-16-2024 CUAN [facility] Comment on above: Performed By: #### M 100.4001, M100.2000, M100.3000 ####[facility] [address] [place], [address] Culture, Anaerobic Any Sourc renita 05-15-2024 CUAN List Antibiotics Las t 48 Hours? none List Antibiotics to be Started? none No anaerobic bacteria isolated. [facility] Comment on above: Performed By: #### M 100.2000, M100.3000, M100.4001 ####[facility] [address] [place], [address] Wound Cultureon 05-15-2024 [facility] Comment on above: Performed By: #### M 100.2000, M100.3000, M100.4001 ####[facility] [address] [place], [address] Gram Stainon 05-14-2024 GS List Antibiotics Las t 48 Hours? none List Antibiotics to be Started? none Gram Stain No organisms seen No cells seen Normal [facility] Comment on above: Performed By: #### M 100.2000, M100.3000, M100.4001 ####[facility] [address] [place], [address] Bacteria identified Anaer cx Nom (Unsp spec)Ordered By: Zarina Fish on 05-11-2024 Anaerobic Culture No anaerobic bacteri a isolated. [facility] Gram stainOrdered By: Prisca Fish on 05-11-2024 Microscopic observation Gram stain Nom (Unsp spec) [facility] Routine wound cultureOrdered By: Zarina Fish on 05-11-2024 Wound Culture Streptococcus pseudoporcinus Abnormal [facility] Wound Culture Staphylococcus epidermidis Abnormal [facility] Gram Stainon 05-05-2024 GS List Antibiotics Las t 48 Hours? none List Antibiotics to be Started? none Gram Stain 1+ Red Blood Cells Rare Gram positive cocci No Epithelial cells Normal [facility] Comment on above: Performed By: #### M 100.4001, M100.2000, M100.3000 ####[facility] [address] [place], [address] Bacteria identified Anaer cx Nom (Unsp spec)Ordered By: Zarina Fish on 05-04-2024 Anaerobic Culture Anaerobic cocci Abnormal [facility] Gram stainOrdered By: Prisca Fish on 05-04-2024 Microscopic observation Gram stain Nom (Unsp spec) [facility] Routine wound cultureOrdered By: Zarina Fish on 05-04-2024 Wound Culture Dermabacter hominis Abnormal [facility] Carotid Duplex Ultrasoundon 05-02-2024 Carotid Duplex Ultrasound Normal [facility] Venous Duplex US - Vishnu Extre mon 05-02-2024 Venous Duplex US - Vishnu Extrem Normal [facility] Prothrombin Time w/INRon INR Coag (PPP) [Relative time] 2.3 {INR} Normal [facility] Comment on above: Performed By: #### L 300.3900 ####[facility] [address] [place], [address] PT Coag (PPP) [Time] 24.9 s High 11.7-14.9 [facility] Comment on above: Performed By: #### L 300.3900 ####[facility] [address] [place], [address] Prothrombin Time w/INRon INR Coag (PPP) [Relative time] 1.9 {INR} Normal [facility] Comment on above: Performed By: #### L 300.3900 ####[facility] [address] [place], [address] PT Coag (PPP) [Time] 21.7 s High 11.7-14.9 [facility] Comment on above: Performed By: #### L 300.3900 ####[facility] [address] [place], [address] Wound Ctr History AND Physic diogenes 03-30-2024 Wound Ctr History & Physical Normal [facility] Culture, Anaerobic Any Sourc renita 03-25-2024 CUAN AEROBIC SWAB ONLY SUBMITTED. GROWTH OF ANAEROBES MAY BE INHIBITED. Susceptibility not normally performed on this organism. Patrice oconnelli Normal [facility] Comment on above: Performed By: #### M 100.4001, M100.2000, M100.3000 ####[facility] [address] [place], [address] Prothrombin Time w/INRon INR Coag (PPP) [Relative time] 2.0 {INR} Normal [facility] Comment on above: Performed By: #### L 300.3900 ####[facility] [address] [place], [address] PT Coag (PPP) [Time] 22.5 s High 11.7-14.9 [facility] Comment on above: Performed By: #### L 300.3900 ####[facility] [address] [place], [address] Wound Cultureon 03-22-2024 WC Normal [facility] Comment on above: Performed By: #### M 100.4001, M100.2000, M100.3000 ####[facility] [address] [place], [address] Gram Stainon 03-20-2024 GS AEROBIC SWAB ONLY SUBMITTED. GROWTH OF ANAEROBES MAY BE INHIBITED. Gram Stain 2+ Gram positive cocci 2+ Gram negative rods 1+ Gram positive rods Normal [facility] Comment on above: Performed By: #### M 100.4001, M1.1999, M100.3000 ####[facility] [address] [place], [address] Urgent Care Visit Reporton 1 Urgent Care Visit Report Normal [facility] Echo Completeon 03-06-2024 Echo Complete Normal [facility] BNP,B-Type NATRIURETIC PEPTI Patricia 02-23-2024 Natriuretic peptide B (Bld) [Mass/Vol] 363.8 pg/mL High 0-100 [facility] Comment on above: Performed By: #### L 503.6030, L503.6620, L100.0100 ####[facility] [address] [place], [address] CBC W/Diff, Automatedon 01-30 Anisocytosis Ql (Bld) 2+ Normal [facility] Comment on above: Performed By: #### L 503.6030, L503.6620, L100.0100 ####[facility] [address] [place], [address] SMEAR COMMENT SCANNED Normal [facility] Comment on above: Performed By: #### L 503.6030, L503.6620, L100.0100 ####[facility] [address] [place], [address] Cardiology Visit Reporton Cardiology Visit Report Normal [facility] Iron+Iron Binding Capacityon 02-23-2024 Iron [Mass/Vol] 92 ug/dL Normal 50-170 [facility] Comment on above: Performed By: #### L 503.6030, L503.6620, L100.0100 ####[facility] [address] [place], [address] IRON SATURATION 31.0 Normal 15.0-55.0 [facility] Comment on above: Performed By: #### L 503.6030, L503.6620, L100.0100 ####[facility] [address] [place], [address] TIBC 297 ug/dL Normal 250-450 [facility] Comment on above: Performed By: #### L 503.6030, L503.6620, L100.0100 ####[facility] [address] [place], [address] MR/BMS.BVSon 01-26-2024 MR/BMS.BVS Normal [facility] Basic Metabolic Profile (BMP )on 01-12-2024 BUN/CRE 20.6 RATIO High 10-20 [facility] Comment on above: Order Comment: 1Y Performed By: #### L 100.0100, L300.3900, L501.5425, L500.2500 ####[facility] [address] [place], [address] CA,Total 9.7 mg/dL Normal 8.5-10.1 [facility] Comment on above: Order Comment: 1Y Performed By: #### L 100.0100, L300.3900, L501.5425, L500.2500 ####[facility] [address] [place], [address] Chloride [Moles/Vol] 104 mmol/L Normal 98-107 [facility] Comment on above: Order Comment: 1Y Performed By: #### L 100.0100, L300.3900, L501.5425, L500.2500 ####[facility] [address] [place], [address] CO2 [Moles/Vol] 30.0 mmol/L Normal 21.0-32.0 [facility] Comment on above: Order Comment: 1Y Performed By: #### L 100.0100, L300.3900, L501.5425, L500.2500 ####[facility] [address] [place], [address] Creatinine [Mass/Vol] 1.36 mg/dL High 0.55-1.02 [facility] Comment on above: Order Comment: 1Y Result Comment: The validity of the calculated GFR GFRAA in patients over70 years has not been determined. Clinical correlation isessential. Performed By: #### L 100.0100, L300.3900, L501.5425, L500.2500 ####[facility] [address] [place], [address] ECRCL 30.00 ml/min Normal [facility] Comment on above: Order Comment: 1Y Performed By: #### L 100.0100, L300.3900, L501.5425, L500.2500 ####[facility] [address] [place], [address] EST GFR - AA 48 mL/min Low >60 [facility] Comment on above: Order Comment: 1Y Result Comment: Afri can [place] GFR Calc Performed By: #### L 100.0100, L300.3900, L501.5425, L500.2500 ####[facility] [address] [place], [address] GAP 6 Normal 5-15 [facility] Comment on above: Order Comment: 1Y Performed By: #### L 100.0100, L300.3900, L501.5425, L500.2500 ####[facility] [address] [place], [address] GFR/1.73 sq M.predicted among non-blacks MDRD (S/P/Bld) [Vol rate/Area] 40 mL/min/{1.73_m2} Low >60 [facility] Comment on above: Order Comment: 1Y Result Comment: Non- GFR Calc Performed By: #### L 100.0100, L300.3900, L501.5425, L500.2500 ####[facility] [address] [place], [address] Glucose [Mass/Vol] 122 mg/dL High 74-106 [facility] Comment on above: Order Comment: 1Y Result Comment: Fast ing Glucose result from 100 to 125 mg/dLsuggests IMPAIRED HOMEOSTASIS per A.D.A. criteria. Performed By: #### L 100.0100, L300.3900, L501.5425, L500.2500 ####[facility] [address] [place], [address] Potassium [Moles/Vol] 3.8 mmol/L Normal 3.5-5.1 [facility] Comment on above: Order Comment: 1Y Performed By: #### L 100.0100, L300.3900, L501.5425, L500.2500 ####[facility] [address] [place], [address] Sodium [Moles/Vol] 140 mmol/L Normal 136-145 [facility] Comment on above: Order Comment: 1Y Performed By: #### L 100.0100, L300.3900, L501.5425, L500.2500 ####[facility] [address] [place], [address] Urea nitrogen [Mass/Vol] 28 mg/dL High 7-18 [facility] Comment on above: Order Comment: 1Y Performed By: #### L 100.0100, L300.3900, L501.5425, L500.2500 ####[facility] [address] [place], [address] CBC W/Diff, Automatedon 12-29 Anisocytosis Ql (Bld) 1+ Normal [facility] Comment on above: Performed By: #### L 100.0100, L300.3900, L501.5425, L500.2500 ####[facility] [address] [place], [address] Chest 1 View (Portable)on Chest 1 View (Portable) Normal [facility] Emergency Department Summary on 01-12-2024 Emergency Department Summary Normal [facility] L501.4020on 01-12-2024 TROPONIN-I HS 10 pg/mL Normal 3.0-54.0 [facility] Comment on above: Result Comment: Plea se Note: New Test Units and Gender Specific Reference Ranges. For more information see Policy Stat Procedure [place]on High Sensitivity Troponin (TNIH) and attachments. Performed By: #### L 501.4020 ####[facility] [address] [place], [address] L501.5425on 01-12-2024 TROPONIN-I HS 8 pg/mL Normal 3.0-54.0 [facility] Comment on above: Order Comment: 1Y Result Comment: Plea se Note: New Test Units and Gender Specific Reference Ranges. For more information see Policy Stat Procedure [place]on High Sensitivity Troponin (TNIH) and attachments. Performed By: #### L 100.0100, L300.3900, L501.5425, L500.2500 ####[facility] [address] [place], [address] Prothrombin Time w/INRon INR Coag (PPP) [Relative time] 2.7 {INR} Normal [facility] Comment on above: Performed By: #### L 100.0100, L300.3900, L501.5425, L500.2500 ####[facility] [address] [place], [address] PT Coag (PPP) [Time] 28.9 s High 11.7-14.9 [facility] Comment on above: Performed By: #### L 100.0100, L300.3900, L501.5425, L500.2500 ####[facility] [address] [place], [address] Ribs Uni Min 3V w/PA Cheston 01-11-2024 Ribs Uni Min 3V w/PA Chest Normal [facility] Prothrombin Time w/INRon INR Coag (PPP) [Relative time] 2.0 {INR} Normal [facility] Comment on above: Performed By: #### L 300.3900 ####[facility] [address] [place], [address] PT Coag (PPP) [Time] 22.3 s High 11.7-14.9 [facility] Comment on above: Performed By: #### L 300.3900 ####[facility] [address] [place], [address] Prothrombin Time w/INRon INR Coag (PPP) [Relative time] 2.6 {INR} Normal [facility] Comment on above: Performed By: #### L 300.3900 ####[facility] [address] [place], [address] PT Coag (PPP) [Time] 27.3 s High 11.7-14.9 [facility] Comment on above: Performed By: #### L 300.3900 ####[facility] [address] [place], [address] Prothrombin Time w/INRon INR Coag (PPP) [Relative time] 3.3 {INR} Normal [facility] Comment on above: Performed By: #### L 300.3900 ####[facility] [address] [place], [place], [id number] PT Coag (PPP) [Time] 32.9 s High 11.7-14.9 [facility] Comment on above: Performed By: #### L 300.3900 ####[facility] [address] [place], [address] Capillary blood internationa l normalized ratio (INR)Ordered By: Anupam Lizarraga on 09-13-2023 INR Coag (BldC) [Relative time] 1.2 [facility] Comment on above: Critical Value > 4.0 Whole blood prothrombin time Ordered By: Anupam Lizarraga on 09-13-2023 PT Coag (Bld) [Time] 13.3 s 11.7-14.9 [facility] Basophil percentageOrdered B y: Anupam Lizarraga on 08-24-2023 Basophil percentage 25-50 SEEN /hpf 0-5 [facility] Chloride [Moles/Vol] 108 mmol/L 98-107 [facility] Glucose [Mass/Vol] 107 mg/dL 74-106 [facility] Comment on above: Fasting Glucose resu lt from 100 to 125 mg/dL suggests IMPAIRED HOMEOSTASIS per A.D.A. criteria. Hemoglobin (Bld) [Mass/Vol] 10.4 g/dL 12.0-15.0 [facility] Potassium [Moles/Vol] 4.2 mmol/L 3.5-5.1 [facility] Sodium [Moles/Vol] 141 mmol/L 136-145 [facility] WBC (Bld) [#/Vol] 5.0 10*3/uL 4.4-11.0 [facility] Bilirubin Test strip Ql (U)O rdered By: Anupam Lizarraga on 08-24-2023 Bilirubin Ql (U) Negative Negative [facility] Blood manual differential co mment interpretation (narrative result)Ordered By: Anupam Lizarraga on 08-24-2023 Manual differential comment Nicolas (Bld) [Interp] SCANNED [facility] Comment on above: 1+ ANISOCYTOSIS Determination of erythrocyte mean corpuscular volume (MCV)Ordered By: Anupamben Lizarraga on 08-24-2023 MCV (RBC) [Entitic vol] 98.2 fL 81-99 [facility] Erythrocyte distribution wid th ratioOrdered By: Pinnacle Zia on 08-24-2023 Erythrocyte distribution width (RBC) [Ratio] 20.0 % 11.6-14.6 [facility] Erythrocyte distribution wid th standard deviationOrdered By: Pinnacle Zia on 08-24-2023 Erythrocyte distribution width (RBC) [Entitic vol] 72.5 fL 35.1-43.9 [facility] Hematocrit Auto (Bld) [Volum e fraction]Ordered By: Anupam Lizarraga on 08-24-2023 Hematocrit (Bld) [Volume fraction] 33.4 % 37-47 [facility] Ketones Test strip Ql (U)Ord ered By: Anupam Lizarraga on 08-24-2023 Ketones Ql (U) Negative Negative [facility] Laboratory - Chemistry and C hemistry - challengeOrdered By: Anupam Lizarraga on 08-24-2023 CO2 [Moles/Vol] 24.0 mmol/L 21.0-32.0 [facility] Urea nitrogen/Creatinine [Mass ratio] 21.4 mg/mg 10-20 [facility] Laboratory - CoagulationOrde red By: Anupam Lizarraga on 08-24-2023 PT Coag (PPP) [Time] 30.1 s 11.7-14.9 [facility] Laboratory - Hematology and Cell countsOrdered By: Pinnacleben Lizarraga on 08-24-2023 MCH (RBC) [Entitic mass] 30.6 pg 27.0-32.0 [facility] MCHC (RBC) [Mass/Vol] 31.1 g/dL 32-36 [facility] Platelet mean volume (Bld) [Entitic vol] 10.1 fL 6.2-12.0 [facility] Platelets (Bld) [#/Vol] 233 10*3/uL 150-450 [facility] Mucus LM Ql (Urine sed)Order ed By: Anupam Lizarraga on 08-24-2023 Mucus Ql (Urine sed) 0 SEEN /hpf [facility] Nitrite Test strip Ql (U)Ord ered By: Anupam Lizarraga on 08-24-2023 Nitrite Ql (U) Negative Negative [facility] No Panel InformationOrdered By: Anupam Lizarraga on 08-24-2023 Estimated GFR (MDRD) Amer 58 mL/min >60 [facility] Comment on above: GFR Calc Estimated GFR (MDRD) Non-Af Amer 48 mL/min >60 [facility] Comment on above: Non- GFR Calc Urine RBC 0-5 SEEN /hpf 0-5 [facility] Protein Test strip Ql (U)Ord ered By: Anupam Lizarraga on 08-24-2023 Protein Ql (U) Negative Negative [facility] RBC Auto (Bld) [#/Vol]Ordere d By: Anupam Lizarraga on 08-24-2023 RBC (Bld) [#/Vol] 3.40 10*6/uL 4.2-5.4 [facility] Serum or plasma calcium darlene urement (mass/volume)Ordered By: Anupam Lizarraga on 08-24-2023 Calcium [Mass/Vol] 9.4 mg/dL 8.5-10.1 [facility] Serum or plasma creatinine m easurement (mass/volume)Ordered By: Anupam Lizarraga on 08-24-2023 Creatinine [Mass/Vol] 1.17 mg/dL 0.55-1.02 [facility] Comment on above: The validity of the calculated GFR & GFRAA in patients over 70 years has not been determined. Clinical correlation is essential. Serum or plasma urea nitroge n measurement (mass/volume)Ordered By: Anupam Lizarraga on 08-24-2023 Urea nitrogen [Mass/Vol] 25 mg/dL 7-18 [facility] Squamous epithelial cells de tection in urine sediment by light microscopyOrdered By: Anupam Lizarraga on 08-24-2023 Epithelial cells.squamous LM Ql (Urine sed) 0-5 SEEN /hpf 5-10 [facility] Thin prep Papanicolaou smear with manual screeningOrdered By: Anupam Lizarraga on 08-24-2023 Thin prep Papanicolaou smear with manual screening 9 5-15 [facility] Urine blood detectionOrdered By: Anupam Lizarraga on 08-24-2023 RBC Ql (U) 10 /ul Negative [facility] Urine clarityOrdered By: Sergio Lizarraga on 08-24-2023 Clarity (U) Sl. Cloudy Clear [facility] Urine color determinationOrd ered By: Anupam Lizarraga on 08-24-2023 Color (U) Yellow Yellow [facility] Urine glucose detectionOrder ed By: Anupam Lizarraga on 08-24-2023 Glucose Ql (U) Normal mg/dl Normal [facility] Urine leukocyte esterase det ection by dipstickOrdered By: Anupam Lizarraga on 08-24-2023 Leukocyte esterase Test strip Ql (U) 500 /ul Negative [facility] Urine pHOrdered By: Johanna on 08-24-2023 pH (U) 6.0 [pH] 5.0 - 8.0 [facility] Urine sediment bacteria coun t by microscopy (number/high power field)Ordered By: Anupam Lizarraga on 08-24-2023 Bacteria LM.HPF (Urine sed) [#/Area] 1 /[HPF] None Seen [facility] Urine specific gravity measu rementOrdered By: Anupam Lizarraga on 08-24-2023 Specific gravity (U) [Rel density] 1.015 1.002-1.03 0 [facility] Urine urobilinogen measureme ntOrdered By: Anupam Lizarraga on 08-24-2023 Urobilinogen Ql (U) Normal mg/dl Normal [facility] Laboratory - CoagulationOrde red By: Anupam Lizarraga on 07-29-2023 INR Coag (Bld) [Relative time] 2.3 {INR} [facility] PT Coag (PPP) [Time] 24.9 s 11.7-14.9 [facility] normalized rat io (INR) calculationOrdered By: Anupam Lizarraga on 06-16-2023 INR Coag (PPP) [Relative time] 3.3 {INR} [facility] Laboratory - CoagulationOrde red By: Anupam Lizarraga on 06-16-2023 PT Coag (PPP) [Time] 34.3 s 11.7-14.9 [facility] INR in Blood by Coagulation assayOrdered By: Anupam Modiori on 04-30-2023 INR Coag (Bld) [Relative time] 2.4 {INR} [facility] Laboratory - CoagulationOrde red By: Pinnacle Zia on 04-30-2023 PT Coag (PPP) [Time] 26.2 s 11.7-14.9 [facility] INR in Blood by Coagulation assayOrdered By: Pinnacle Zia on 04-21-2023 INR Coag (Bld) [Relative time] 3.4 {INR} [facility] Laboratory - CoagulationOrde red By: Anupam Zia on 04-21-2023 PT Coag (PPP) [Time] 34.8 s 11.7-14.9 [facility] INR in Blood by Coagulation assayOrdered By: Anupam Zia on 03-25-2023 INR Coag (Bld) [Relative time] 2.9 {INR} [facility] Laboratory - CoagulationOrde red By: Pinnacle Zia on 03-25-2023 PT Coag (PPP) [Time] 30.5 s 11.7-14.9 [facility] INR in Blood by Coagulation assayOrdered By: Anupam Zia on 02-22-2023 INR Coag (Bld) [Relative time] 2.4 {INR} [facility] Laboratory - CoagulationOrde red By: Pinnacle Zia on 02-22-2023 PT Coag (PPP) [Time] 26.8 s 11.7-14.9 [facility] INR in Blood by Coagulation assayOrdered By: Anupam Zia on 01-21-2023 INR Coag (Bld) [Relative time] 2.2 {INR} [facility] Laboratory - CoagulationOrde red By: Pinnacle Zia on 01-21-2023 PT Coag (PPP) [Time] 24.7 s 11.7-14.9 [facility] INR in Blood by Coagulation assayOrdered By: Anupam Zia on 12-18-2022 INR Coag (Bld) [Relative time] 2.7 {INR} [facility] Laboratory - CoagulationOrde red By: Anupam Zia on 12-18-2022 PT Coag (PPP) [Time] 29.0 s 11.7-14.9 [facility] INR in Blood by Coagulation assayOrdered By: Anupam Lizarraga on 11-24-2022 INR Coag (Bld) [Relative time] 2.5 {INR} [facility] Laboratory - CoagulationOrde red By: Anupam Lizarraga on 11-24-2022 PT Coag (PPP) [Time] 26.9 s 11.7-14.9 [facility] INR in Blood by Coagulation assayOrdered By: Dr. Lizarraga on 10-22-2022 INR Coag (Bld) [Relative time] 2.5 {INR} [facility] Laboratory - CoagulationOrde red By: Dr. Lizarraga on 10-22-2022 PT Coag (PPP) [Time] 27.5 s 11.7-14.9 [facility] INR in Blood by Coagulation assayOrdered By: Dr. Lizarraga on 09-17-2022 INR Coag (Bld) [Relative time] 2.2 {INR} [facility] Laboratory - CoagulationOrde red By: Dr. Lizarraga on 09-17-2022 PT Coag (PPP) [Time] 24.0 s 11.7-14.9 [facility] Absolute lymphocyte countOrd ered By: Yoshi Swann on 09-04-2022 Lymphocytes Auto (Unsp spec) [#/Vol] 1.58 10*3/uL 0.83-4.51 [facility] Atypical perinuclear antineu trophil cytoplasmic antibodies measurementOrdered By: Yoshi Swann on 09-04-2022 Neutrophil cytoplasmic Ab.perinuclear.atypical IF (S) [Titer] <1:20 titer Neg:<1:20 [facility] Comment on above: The atypical pANCA p attern has been observed in asignificant percentage of patients with ulcerative colitis,primary sclerosing cholangitis and autoimmune hepatitis. Basophil percentageOrdered B y: Yoshi Swann on 09-04-2022 Amylase [Catalytic activity/Vol] 90 U/L 25-115 [facility] Basophil percentage < 0.2 AI 0.0-0.9 [facility] Basophils/100 WBC (Bld) 1.5 % 0-1 [facility] Bilirubin [Mass/Vol] 0.60 mg/dL 0.20-1.00 [facility] Comment on above: For patients on eltr ombopag therapy, use of Dimension [place] TBIL is not recommended. Chloride [Moles/Vol] 108 mmol/L 98-107 [facility] Eosinophils/100 WBC (Bld) 6.9 % 0-5 [facility] Glucose [Mass/Vol] 94 mg/dL 74-106 [facility] Neutrophils (Bld) [#/Vol] 2.3 10*3/uL 2.0-7.7 [facility] Neutrophils/100 WBC (Bld) 48.2 % 47-70 [facility] Potassium [Moles/Vol] 4.2 mmol/L 3.5-5.1 [facility] Protein [Mass/Vol] 7.1 g/dL 6.4-8.2 [facility] Sodium [Moles/Vol] 139 mmol/L 136-145 [facility] WBC (Bld) [#/Vol] 4.8 10*3/uL 4.4-11.0 [facility] Blood erythrocytes count (nu mber/volume)Ordered By: Yoshi Swann on 09-04-2022 RBC (Bld) [#/Vol] 3.11 10*6/uL 4.2-5.4 [facility] Blood hemoglobin measurement (mass/volume)Ordered By: Yoshi Swann on 09-04-2022 Hemoglobin (Bld) [Mass/Vol] 9.8 g/dL 12.0-15.0 [facility] Blood lymphocytes/100 leukoc ytesOrdered By: Yoshi Swann on 09-04-2022 Lymphocytes/100 WBC (Bld) 33.3 % 19-41 [facility] Blood manual differential co mment interpretation (narrative result)Ordered By: Yoshi Swann on 09-04-2022 Manual differential comment Nicolas (Bld) [Interp] SCANNED [facility] Comment on above: ANISOCYTOSIS Blood monocytes/100 leukocyt esOrdered By: Yoshi Swann on 09-04-2022 Monocytes/100 WBC (Bld) 9.9 % 0-10 [facility] Blood platelet mean volumeOr dered By: Yoshi Swann on 09-04-2022 Platelet mean volume (Bld) [Entitic vol] 10.7 fL 6.2-12.0 [facility] Determination of erythrocyte mean corpuscular volume (MCV)Ordered By: Yoshi Swann on 09-04-2022 MCV (RBC) [Entitic vol] 101.0 fL 81-99 [facility] Erythrocyte sedimentation ra teOrdered By: Yoshi Swann on 09-04-2022 ESR (Bld) [Velocity] 16 mm/h 0-30 [facility] Hematocrit Auto (Bld) [Volum e fraction]Ordered By: Yoshi Swann on 09-04-2022 Hematocrit (Bld) [Volume fraction] 31.4 % 37-47 [facility] Hypochromatic red blood cell detectionOrdered By: Yoshi Swann on 09-04-2022 Hypochromia Ql (Bld) 1+ [facility] Interpretation of serum or p lasma protein pattern by immunofixation (narrative resultOrdered By: Yoshi Swann on 09-04-2022 Protein Fractions Immunofixation Nicolas [Interp] See comment [facility] Comment on above: Result: Not Observed Laboratory - Chemistry and C hemistry - challengeOrdered By: Yoshi Swann on 09-04-2022 ALP [Catalytic activity/Vol] 61 U/L 45-117 [facility] ALT [Catalytic activity/Vol] 11 U/L 13-56 [facility] CO2 [Moles/Vol] 28.0 mmol/L 21.0-32.0 [facility] Lipase [Catalytic activity/Vol] 258 U/L 73-393 [facility] Urea nitrogen/Creatinine [Mass ratio] 16.8 mg/mg 10-20 [facility] Laboratory - Hematology and Cell countsOrdered By: Yoshi Swann on 09-04-2022 Anisocytosis Ql (Bld) 2+ [facility] Erythrocyte distribution width (RBC) [Entitic vol] 71.8 fL 35.1-43.9 [facility] Erythrocyte distribution width (RBC) [Ratio] 19.3 % 11.6-14.6 [facility] Immature granulocytes/100 WBC (Bld) 0.200 % 0.0-0.9 [facility] Comment on above: IG% - Immature Granu locytes (promyelocytes, myelocytes and metamyelocytes) > 1% indicates that a LEFT SHIFT is Present. MCH (RBC) [Entitic mass] 31.5 pg 27.0-32.0 [facility] Nucleated RBC/100 WBC (Bld) [Ratio] 0 % 0-5 [facility] MCHC Auto (RBC) [Mass/Vol]Or dered By: Yoshi Swann on 09-04-2022 MCHC (RBC) [Mass/Vol] 31.2 g/dL 32-36 [facility] No Panel InformationOrdered By: Yoshi Swann on 09-04-2022 Addendum Document Comment . [facility] Comment on above: Protein electrophore sis scan will follow via computer,mail, or forestry engineer delivery. CA 19-9 Antigen 24 U/mL 0-35 [facility] Comment on above: [employer] El ectrochemiluminescence Immunoassay(ECLIA)Values obtained with different assay methods or kits cannotbe used interchangeably. Results cannot be interpreted asabsolute evidence of the presence or absence of malignantdisease. CA 19-9 Antigen Serial Monitoring Not Reportable [facility] Centromere B Antibody <0.2 AI 0.0-0.9 [facility] Endomysial IgA Antibody Negative Negative [facility] Estimated GFR (MDRD) Amer 69 mL/min >60 [facility] Comment on above: GFR Calc Estimated GFR (MDRD) Non-Af Amer 57 mL/min >60 [facility] Comment on above: Non- GFR Calc Hepatitis A IgM Antibody Negative Negative [facility] Hepatitis B Core IgM Antibody Negative Negative [facility] Hepatitis C Antibody (EIA) Non-Reactive Non Reactive [facility] Hepatitis C Antibody Comment Comment . [facility] Comment on above: Not infected with HC V unless early or acute infection issuspected (which may be delayed in an immunocompromisedindividual), or other evidence exists to indicate HCVinfection. Immunoglobulin E 74 IU/mL 6-495 [facility] Comment on above: Performed at: [address] [id number] Director: Shoaib Ellis PhD, Phone: [phone] at: [facility] [employer] [address] [id number] Director: Viridiana Esquivel MD, Phone: [phone] Immunoglobulin G4 74 mg/dL 2-96 [facility] SENIOR SOFTWARE DEVELOPMENT MANAGER Antibody <0.2 AI 0.0-0.9 [facility] Ovalocyte detectionOrdered B y: Yoshi Hue on 09-04-2022 Ovalocytes LM Ql (Bld) 1+ [facility] Platelets bldOrdered By: Brayden castaneda Hue on 09-04-2022 Platelets (Bld) [#/Vol] 183 10*3/uL 150-450 [facility] Serum DNA double strand anti body assay (units/volume)Ordered By: Yoshikaris Swann on 09-04-2022 DNA double strand Ab Qn (S) 1 [IU]/mL 0-9 [facility] Comment on above: Negative <5 Equivoca l 5 - 9 Positive >9 Serum IgA measurement (units /volume)Ordered By: Yoshikaris Swann on 09-04-2022 IgA Qn (S) 407 mg/dL 64-422 [facility] Comment on above: Performed at: [address] [id number] Director: Shoaib Ellis PhD, Phone: [phone] Serum IgG subclass 1 measure ment (mass/volume)Ordered By: Yoshikaris Swann on 09-04-2022 IgG subclass 1 (S) [Mass/Vol] 581 mg/dL 248-810 [facility] Serum IgG subclass 2 measure ment (mass/volume)Ordered By: Yoshi Swann on 09-04-2022 IgG subclass 2 (S) [Mass/Vol] 269 mg/dL 130-555 [facility] Serum IgG subclass 3 measure ment (mass/volume)Ordered By: Yoshikaris Swann on 09-04-2022 IgG subclass 3 (S) [Mass/Vol] 167 mg/dL 15-102 [facility] Serum Nargis-1 antibody assay (u nits/volume)Ordered By: Yoshikaris Swann on 09-04-2022 Nargis-1 extractable nuclear Ab Qn (S) <0.2 AI 0.0-0.9 [facility] Serum Scl-70 extractable nuc lear antibody assay (units/volume)Ordered By: Yoshi Swann on 09-04-2022 SCL-70 extractable nuclear Ab Qn (S) <0.2 AI 0.0-0.9 [facility] Serum Mcfarlane extractable nucl ear antibody detectionOrdered By: Yoshi Swann on 09-04-2022 Mcfarlane extractable nuclear Ab Ql (S) <0.2 AI 0.0-0.9 [facility] Serum iuztd-2-cnbhcoxw measu rement by electrophoresisOrdered By: Yoshi Swann on 09-04-2022 Alpha 1 globulin Elph [Mass/Vol] 0.3 g/dL 0.0-0.4 [facility] Alpha 1 globulin Elph [Mass/Vol] 0.5 g/dL 0.4-1.0 [facility] Serum classic neutrophil cyt oplasmic antibody assay (units/volume)Ordered By: Yoshi Swann on 09-04-2022 Neutrophil cytoplasmic Ab.classic Qn (S) <1:20 titer Neg:<1:20 [facility] Serum globulin measurement ( mass/volume)Ordered By: Yoshi Swann on 09-04-2022 Globulin (S) [Mass/Vol] 2.7 g/dL 2.2-3.9 [facility] Serum or plasma C reactive p rotein measurement (mass/volume)Ordered By: Yoshi Swann on 09-04-2022 CRP [Mass/Vol] mg/L 0.0-3.0 [facility] Comment on above: C-Reactive Protein ( CRP) provides useful information for thediagnosis, therapy and monitoring of inflammatory processesand associated diseases. For the evaluation of Relative Riskfor Cardiovascular Disease, a High Sensitivity CRP (HSCRP)should be ordered. Serum or plasma IgG measurem ent (mass/volume)Ordered By: Yoshi Swann on 09-04-2022 IgG [Mass/Vol] 1066 mg/dL 586-1602 [facility] IgG [Mass/Vol] Not Reportable [facility] Serum or plasma IgM measurem ent (mass/volume)Ordered By: Yoshi Swann on 09-04-2022 IgM [Mass/Vol] 117 mg/dL 26-217 [facility] Serum or plasma albumin darlene urement (mass/volume)Ordered By: Yoshi Swann on 09-04-2022 Albumin [Mass/Vol] 3.9 g/dL 2.9-4.4 [facility] Serum or plasma albumin/glob ulin mass ratioOrdered By: Yoshi Swann on 09-04-2022 Albumin/Globulin [Mass ratio] 1.2 {ratio} 0.9-2.4 [facility] Serum or plasma beta globuli n measurement by electrophoresis (mass/volume)Ordered By: Yoshi Swann on 09-04-2022 Beta globulin Elph [Mass/Vol] 0.9 g/dL 0.7-1.3 [facility] Serum or plasma calcium darlene urement (mass/volume)Ordered By: Yoshi Swann on 09-04-2022 Calcium [Mass/Vol] 9.1 mg/dL 8.5-10.1 [facility] Serum or plasma creatinine m easurement (mass/volume)Ordered By: Yoshi Swann on 09-04-2022 Creatinine [Mass/Vol] 1.01 mg/dL 0.55-1.02 [facility] Comment on above: The validity of the calculated GFR & GFRAA in patients over 70 years has not been determined. Clinical correlation is essential. Serum or plasma gamma globul in measurement by electrophoresis (mass/volume)Ordered By: Yoshi Swann on 09-04-2022 Gamma globulin Elph [Mass/Vol] 1.0 g/dL 0.4-1.8 [facility] Serum or plasma hepatitis B virus surface antigen detection by immunoassayOrdered By: Yoshi Swann on 09-04-2022 HBV surface Ag IA Ql Negative Negative [facility] Serum or plasma immunoelectr ophoresis interpretation (nominal result)Ordered By: Yoshi Swann on 09-04-2022 Interpretation IEP [Interp] Comment . [facility] Comment on above: No monoclonality det ected. Serum or plasma urea nitroge n measurement (mass/volume)Ordered By: Yoshi Swann on 09-04-2022 Urea nitrogen [Mass/Vol] 17 mg/dL 7-18 [facility] Serum perinuclear neutrophil cytoplasmic antibody titer by immunofluorescenceOrdered By: Yoshi Swann on 09-04-2022 Neutrophil cytoplasmic Ab.perinuclear IF (S) [Titer] <1:20 titer Neg:<1:20 [facility] Comment on above: The presence of posi tive fluorescence exhibiting P-ANCA orC-ANCA patterns alone is not specific for the diagnosis ofWegener's Granulomatosis (WG) or microscopic polyangiitis.Decisions about treatment should not be based solely onANCA IFA results. The International ANCA Group Consensusrecommends follow up testing of positive sera with both ND-3 and MPO-ANCA enzyme immunoassays. As many as 5% serumsamples are positive only by EIA. Ref. AM J Clin Szzrha8078;111:507-513. Serum tissue transglutaminas e IgA antibody assay (units/volume)Ordered By: Yoshi Swann on 09-04-2022 tTG IgA Qn (S) <2 U/mL 0-3 [facility] Comment on above: Negative 0 - 3 Weak Positive 4 - 10 Positive >10 Tissue Transglutaminase (tTG) has been identified as the endomysial antigen. Studies have demonstr- ated that endomysial IgA antibodies have over 99% specificity for gluten sensitive enteropathy. Thin prep Papanicolaou smear with manual screeningOrdered By: Yoshi Swann on 09-04-2022 Thin prep Papanicolaou smear with manual screening 20 U/L 15-37 [facility] Thin prep Papanicolaou smear with manual screening 3 5-15 [facility] Thin prep Papanicolaou smear with manual screening 1.5 0.7-1.7 [facility] Total protein bloodOrdered B y: Yoshi Swann on 09-04-2022 Protein [Mass/Vol] 6.6 g/dL 6.0-8.5 [facility] INR in Blood by Coagulation assayOrdered By: Dr. Lizarraga on 08-20-2022 INR Coag (Bld) [Relative time] 2.7 {INR} [facility] Laboratory - CoagulationOrde red By: Dr. Lizarraga on 08-20-2022 PT Coag (PPP) [Time] 28.4 s 11.7-14.9 [facility] INR in Blood by Coagulation assayOrdered By: Dr. Lizarraga on 07-13-2022 INR Coag (Bld) [Relative time] 2.7 {INR} [facility] Laboratory - CoagulationOrde red By: Dr. Lizarraga on 07-13-2022 PT Coag (PPP) [Time] 28.2 s 11.7-14.9 [facility] Basophil percentageOrdered B y: Dr. Lizarraga on 05-29-2022 Amylase [Catalytic activity/Vol] 101 U/L 25-115 [facility] Bilirubin [Mass/Vol] 0.50 mg/dL 0.20-1.00 [facility] Comment on above: For patients on eltr ombopag therapy, use of Dimension [place] TBIL is not recommended. Chloride [Moles/Vol] 107 mmol/L 98-107 [facility] Glucose [Mass/Vol] 87 mg/dL 74-106 [facility] Potassium [Moles/Vol] 3.9 mmol/L 3.5-5.1 [facility] Protein [Mass/Vol] 6.9 g/dL 6.4-8.2 [facility] Sodium [Moles/Vol] 140 mmol/L 136-145 [facility] WBC (Bld) [#/Vol] 5.0 10*3/uL 4.4-11.0 [facility] Blood erythrocytes count (nu mber/volume)Ordered By: Dr. Lizarraga on 05-29-2022 RBC (Bld) [#/Vol] 3.27 10*6/uL 4.2-5.4 [facility] Blood hemoglobin measurement (mass/volume)Ordered By: Dr. Lizarraga on 05-29-2022 Hemoglobin (Bld) [Mass/Vol] 10.5 g/dL 12.0-15.0 [facility] Blood manual differential co mment interpretation (narrative result)Ordered By: Dr. Lizarraga on 05-29-2022 Manual differential comment Nicolas (Bld) [Interp] SCANNED [facility] Comment on above: 1+ ANISOCYTOSIS Blood platelet mean volumeOr dered By: Dr. Lizarraga on 05-29-2022 Platelet mean volume (Bld) [Entitic vol] 10.2 fL 6.2-12.0 [facility] Determination of erythrocyte mean corpuscular volume (MCV)Ordered By: Dr. Lizarraga on 05-29-2022 MCV (RBC) [Entitic vol] 102.1 fL 81-99 [facility] Hematocrit Auto (Bld) [Volum e fraction]Ordered By: Dr. Lizarraga on 05-29-2022 Hematocrit (Bld) [Volume fraction] 33.4 % 37-47 [facility] INR in Blood by Coagulation assayOrdered By: Dr. Lizarraga on 05-29-2022 INR Coag (Bld) [Relative time] 2.8 {INR} [facility] Laboratory - Chemistry and C hemistry - challengeOrdered By: Dr. Lizarraga on 05-29-2022 ALP [Catalytic activity/Vol] 63 U/L 45-117 [facility] ALT [Catalytic activity/Vol] 18 U/L 13-56 [facility] CO2 [Moles/Vol] 29.0 mmol/L 21.0-32.0 [facility] Globulin (S) [Mass/Vol] 3.4 g/dL 2.2-4.2 [facility] Lipase [Catalytic activity/Vol] 208 U/L 73-393 [facility] Urea nitrogen/Creatinine [Mass ratio] 17.9 mg/mg 10-20 [facility] Laboratory - CoagulationOrde red By: Dr. Lizarraga on 05-29-2022 PT Coag (PPP) [Time] 29.2 s 11.7-14.9 [facility] Laboratory - Hematology and Cell countsOrdered By: Dr. Lizarraga on 05-29-2022 Erythrocyte distribution width (RBC) [Entitic vol] 68.2 fL 35.1-43.9 [facility] Erythrocyte distribution width (RBC) [Ratio] 18.6 % 11.6-14.6 [facility] MCH (RBC) [Entitic mass] 32.1 pg 27.0-32.0 [facility] MCHC Auto (RBC) [Mass/Vol]Or dered By: Dr. Lizarraga on 05-29-2022 MCHC (RBC) [Mass/Vol] 31.4 g/dL 32-36 [facility] No Panel InformationOrdered By: Dr. Lizarraga on 05-29-2022 CA 19-9 Antigen 35 U/mL 0-35 [facility] Comment on above: [employer] El ectrochemiluminescence Immunoassay(ECLIA)Values obtained with different assay methods or kits cannotbe used interchangeably. Results cannot be interpreted asabsolute evidence of the presence or absence of malignantdisease. Estimated GFR (MDRD) Amer 61 mL/min >60 [facility] Comment on above: GFR Calc Estimated GFR (MDRD) Non-Af Amer 50 mL/min >60 [facility] Comment on above: Non- GFR Calc Platelets bldOrdered By: Dr. Lizarraga on 05-29-2022 Platelets (Bld) [#/Vol] 205 10*3/uL 150-450 [facility] Serum Helicobacter pylori Ig G antibody assay (units/volume)Ordered By: Dr. Lizarraga on 05-29-2022 H. pylori IgG Qn (S) 0.12 0.00-0.79 [facility] Comment on above: Result Units: Index Value Negative <0.80 Equivocal 0.80 - 0.89 Positive >0.89Performed at: [facility] [place] [id number] Director: Shoaib Ellis PhD, Phone: [phone] Serum or plasma albumin darlene urement (mass/volume)Ordered By: Dr. Lizarraga on 05-29-2022 Albumin [Mass/Vol] 3.5 g/dL 3.2-5.0 [facility] Serum or plasma albumin/glob ulin mass ratioOrdered By: Dr. Lizarraga on 05-29-2022 Albumin/Globulin [Mass ratio] 1.0 {ratio} 0.9-2.4 [facility] Serum or plasma calcium darlene urement (mass/volume)Ordered By: Dr. Lizarraga on 05-29-2022 Calcium [Mass/Vol] 8.7 mg/dL 8.5-10.1 [facility] Serum or plasma creatinine m easurement (mass/volume)Ordered By: Dr. Lizarraga on 05-29-2022 Creatinine [Mass/Vol] 1.12 mg/dL 0.55-1.02 [facility] Comment on above: The validity of the calculated GFR & GFRAA in patients over 70 years has not been determined. Clinical correlation is essential. Serum or plasma urea nitroge n measurement (mass/volume)Ordered By: Dr. Lizarraga on 05-29-2022 Urea nitrogen [Mass/Vol] 20 mg/dL 7-18 [facility] Thin prep Papanicolaou smear with manual screeningOrdered By: Dr. Lizarraga on 05-29-2022 Thin prep Papanicolaou smear with manual screening 19 U/L 15-37 [facility] Thin prep Papanicolaou smear with manual screening 4 5-[address] [facility] [address] ABDOMEN/PELVIS W/CONTRAST on 05-28-2022 CT ABDOMEN/PELVIS [...] Date: 05/28/2022 10:40:17 AM Ordering Provider: LOU Maldonado [facility] ([place]) .GFRon 05-27-2022 GFR 65 ml/min/1.73sqm Normal [facility] ([place]) Comment on above: Result Comment: GFR Population [...] Performed By: #### G , CRE #### [place] [id number] GFR Non- 53 ml/min/1.73sqm Normal [facility] ([place]) Comment on above: Result Comment: GFR Population [...] Performed By: #### G , CRE #### [address] [address] CREon 05-27-2022 Creatinine [Mass/Vol] 1.01 mg/dL Normal 0.55-1.02 [facility] ([place]) Comment on above: Performed By: #### Dipti LINARES, CRE #### [address] [address] LABORATORYOrdered By: SYSTEM SYSTEM on 05-27-2022 Creatinine [Mass/Vol] 1.01 mg/dL Invalid Interpretation Code 0.55 - 1.02 mg/dL AO ADM SS GFR 65 ml/min/1.73sqm Invalid Interpretation Code AO Chemistry S GFR Non- 53 ml/min/1.73sqm Inval id Interpretation Code AO Chemistry S INR in Blood by Coagulation assayon 05-15-2022 INR Coag (Bld) [Relative time] 3.2 {INR} [facility] Work Phone: Laboratory - Coagulationon 1 07-16-2021 PT Coag (PPP) [Time] 32.1 s 11.7-14.9 [facility] Work Phone: Basophil percentageon 2021 WBC (Bld) [#/Vol] 5.1 10*3/uL 4.4-11.0 [facility] Work Phone: Blood erythrocytes count (nu mber/volume)on 04-30-2022 RBC (Bld) [#/Vol] 3.49 10*6/uL 4.2-5.4 [facility] Work Phone: Blood hemoglobin measurement (mass/volume)on 04-30-2022 Hemoglobin (Bld) [Mass/Vol] 10.9 g/dL 12.0-15.0 [facility] Work Phone: Blood manual differential co mment interpretation (narrative result)on 04-30-2022 Manual differential comment Nicolas (Bld) [Interp] See comment [facility] Work Phone: Comment on above: RARE ANISOCYTOSIS Blood platelet mean volumeon 04-30-2022 Platelet mean volume (Bld) [Entitic vol] 10.7 fL 6.2-12.0 [facility] Work Phone: Determination of erythrocyte mean corpuscular volume (MCV)on 04-30-2022 MCV (RBC) [Entitic vol] 101.7 fL 81-99 [facility] Work Phone: Hematocrit Auto (Bld) [Volum e fraction]on 04-30-2022 Hematocrit (Bld) [Volume fraction] 35.5 % 37-47 [facility] Work Phone: Laboratory - Hematology and Cell countson 04-30-2022 Erythrocyte distribution width (RBC) [Entitic vol] 67.7 fL 35.1-43.9 [facility] Work Phone: Erythrocyte distribution width (RBC) [Ratio] 18.6 % 11.6-14.6 [facility] Work Phone: MCH (RBC) [Entitic mass] 31.2 pg 27.0-32.0 [facility] Work Phone: MCHC Auto (RBC) [Mass/Vol]on 04-30-2022 MCHC (RBC) [Mass/Vol] 30.7 g/dL 32-36 [facility] Work Phone: Platelets bldon 04-30-2022 Platelets (Bld) [#/Vol] 238 10*3/uL 150-450 [facility] Work Phone: INR in Blood by Coagulation assayOrdered By: Dr. Lizarraga on 04-15-2022 INR Coag (Bld) [Relative time] 2.9 {INR} [facility] Laboratory - CoagulationOrde red By: Dr. Lizarraga on 04-15-2022 PT Coag (PPP) [Time] 30.2 s 11.7-14.9 [facility] INR in Blood by Coagulation assayon 03-05-2022 INR Coag (Bld) [Relative time] 2.8 {INR} [facility] Work Phone: Laboratory - Coagulationon 1 PT Coag (PPP) [Time] 29.1 s 11.7-14.9 [facility] Work Phone: INR in Blood by Coagulation assayon 02-04-2022 INR Coag (Bld) [Relative time] 2.4 {INR} [facility] Work Phone: Laboratory - Coagulationon 0 02-04-2022 PT Coag (PPP) [Time] 25.9 s 11.7-14.9 [facility] Work Phone: INR in Blood by Coagulation assayon 01-05-2022 INR Coag (Bld) [Relative time] 2.8 {INR} [facility] Work Phone: Laboratory - Coagulationon 0 01-05-2022 PT Coag (PPP) [Time] 29.5 s 11.7-14.9 [facility] Work Phone: INR in Blood by Coagulation assayon 12-05-2021 INR Coag (Bld) [Relative time] 2.5 {INR} [facility] Work Phone: Laboratory - Coagulationon 0 12-05-2021 PT Coag (PPP) [Time] 27.0 s 11.7-14.9 [facility] Work Phone: INR in Blood by Coagulation assayon 11-17-2021 INR Coag (Bld) [Relative time] 3.1 {INR} [facility] Work Phone: Laboratory - Coagulationon 0 11-17-2021 PT Coag (PPP) [Time] 31.4 s 11.7-14.9 [facility] Work Phone: Absolute lymphocyte counton 10-21-2021 Lymphocytes Auto (Unsp spec) [#/Vol] 1.08 10*3/uL 0.83-4.51 [facility] Work Phone: Basophil percentageon 2021 Basophils/100 WBC (Bld) 1.5 % 0-1 [facility] Work Phone: Chloride [Moles/Vol] 107 mmol/L 98-107 [facility] Work Phone: Eosinophils/100 WBC (Bld) 4.5 % 0-5 [facility] Work Phone: Glucose [Mass/Vol] 91 mg/dL 74-106 [facility] Work Phone: Neutrophils (Bld) [#/Vol] 2.2 10*3/uL 2.0-7.7 [facility] Work Phone: Neutrophils/100 WBC (Bld) 55.8 % 47-70 [facility] Work Phone: Potassium [Moles/Vol] 4.6 mmol/L 3.5-5.1 [facility] Work Phone: Sodium [Moles/Vol] 136 mmol/L 136-145 [facility] Work Phone: WBC (Bld) [#/Vol] 4.0 10*3/uL 4.4-11.0 [facility] Work Phone: [phone] Blood erythrocytes count (nu mber/volume)on 10-21-2021 RBC (Bld) [#/Vol] 3.48 10*6/uL 4.2-5.4 [facility] Work Phone: Blood hemoglobin measurement (mass/volume)on 10-21-2021 Hemoglobin (Bld) [Mass/Vol] 11.0 g/dL 12.0-15.0 [facility] Work Phone: Blood lymphocytes/100 leukoc yteson 10-21-2021 Lymphocytes/100 WBC (Bld) 27.1 % 19-41 [facility] Work Phone: Blood monocytes/100 leukocyt eson 10-21-2021 Monocytes/100 WBC (Bld) 10.8 % 0-10 [facility] Work Phone: Blood platelet mean volumeon 10-21-2021 Platelet mean volume (Bld) [Entitic vol] 10.1 fL 6.2-12.0 [facility] Work Phone: Determination of erythrocyte mean corpuscular volume (MCV)on 10-21-2021 MCV (RBC) [Entitic vol] 101.7 fL 81-99 [facility] Work Phone: Hematocrit Auto (Bld) [Volum e fraction]on 10-21-2021 Hematocrit (Bld) [Volume fraction] 35.4 % 37-47 [facility] Work Phone: INR in Blood by Coagulation assayon 10-21-2021 INR Coag (Bld) [Relative time] 2.7 {INR} [facility] Work Phone: Laboratory - Chemistry and C hemistry - challengeon 10-21-2021 CO2 [Moles/Vol] 24.0 mmol/L 21.0-32.0 [facility] Work Phone: Urea nitrogen/Creatinine [Mass ratio] 21.0 mg/mg 10-20 [facility] Work Phone: Laboratory - Coagulationon 0 10-21-2021 PT Coag (PPP) [Time] 28.6 s 11.7-14.9 [facility] Work Phone: Laboratory - Hematology and Cell countson 10-21-2021 Anisocytosis Ql (Bld) 1+ [facility] Work Phone: Erythrocyte distribution width (RBC) [Entitic vol] 68.8 fL 35.1-43.9 [facility] Work Phone: Erythrocyte distribution width (RBC) [Ratio] 18.6 % 11.6-14.6 [facility] Work Phone: Immature granulocytes/100 WBC (Bld) 0.300 % 0.0-0.9 [facility] Work Phone: Comment on above: IG% - Immature Granu locytes (promyelocytes, myelocytes and metamyelocytes) > 1% indicates that a LEFT SHIFT is Present. MCH (RBC) [Entitic mass] 31.6 pg 27.0-32.0 [facility] Work Phone: Nucleated RBC/100 WBC (Bld) [Ratio] 0 % 0-5 [facility] Work Phone: MCHC Auto (RBC) [Mass/Vol]on 10-21-2021 MCHC (RBC) [Mass/Vol] 31.1 g/dL 32-36 [facility] Work Phone: No Panel Informationon 10-21 Estimated GFR (MDRD) Amer 66 mL/min >60 [facility] Work Phone: Comment on above: GFR Calc Estimated GFR (MDRD) Non-Af Amer 54 mL/min >60 [facility] Work Phone: Comment on above: Non- GFR Calc Platelets bldon 10-21-2021 Platelets (Bld) [#/Vol] 211 10*3/uL 150-450 [facility] Work Phone: Serum or plasma calcium darlene urement (mass/volume)on 10-21-2021 Calcium [Mass/Vol] 9.3 mg/dL 8.5-10.1 [facility] Work Phone: Serum or plasma creatinine m easurement (mass/volume)on 10-21-2021 Creatinine [Mass/Vol] 1.05 mg/dL 0.55-1.02 [facility] Work Phone: Comment on above: The validity of the calculated GFR & GFRAA in patients over 70 years has not been determined. Clinical correlation is essential. Serum or plasma urea nitroge n measurement (mass/volume)on 10-21-2021 Urea nitrogen [Mass/Vol] 22 mg/dL 7-18 [facility] Work Phone: Thin prep Papanicolaou smear with manual screeningon 10-21-2021 Thin prep Papanicolaou smear with manual screening 5 5-15 [facility] Work Phone: INR in Blood by Coagulation assayon 09-25-2021 INR Coag (Bld) [Relative time] 2.7 {INR} [facility] Work Phone: Laboratory - Coagulationon 0 09-25-2021 PT Coag (PPP) [Time] 28.6 s 11.7-14.9 [facility] Work Phone: INR in Blood by Coagulation assayon 08-28-2021 INR Coag (Bld) [Relative time] 2.7 {INR} [facility] Work Phone: Laboratory - Coagulationon 0 08-28-2021 PT Coag (PPP) [Time] 27.9 s 11.7-14.9 [facility] Work Phone: INR in Blood by Coagulation assayon 07-01-2021 INR Coag (Bld) [Relative time] 3.0 {INR} [facility] Work Phone: Laboratory - Coagulationon 0 07-01-2021 PT Coag (PPP) [Time] 29.9 s 11.7-14.9 [facility] Work Phone: INR in Blood by Coagulation assayon 06-03-2021 INR Coag (Bld) [Relative time] 2.7 {INR} [facility] Work Phone: Laboratory - Coagulationon 0 06-03-2021 PT Coag (PPP) [Time] 27.4 s 11.7-14.9 [facility] Work Phone: INR in Blood by Coagulation assayon 05-21-2021 INR Coag (Bld) [Relative time] 3.2 {INR} [facility] Work Phone: Laboratory - Coagulationon 1 07-22-2020 PT Coag (PPP) [Time] 31.8 s 11.7-14.9 [facility] Work Phone: CT LUMBAR SPINE WO IVCONon 0 07-24-2019 CT LUMBAR SPINE WO IVCON * * *Final Repo rt* * * DATE OF EXAM: Jul 24 2019 2:23PM [facility] 0508 - CT LUMBAR SPINE WO IVCON [...] is taken as L5-S1. Structural anomalies: None. [employer] Caser: AMY Transcribe Date/Time: Jul 24 2019 2:30P Dictated by : AFSANEH APARICIO MD This examination was interpreted and the report reviewed and electronically signed by: AFSANEH APARICIO MD on Jul 24 2019 2:37PM EST [id number] Normal [facility] PROGRESSon 07-24-2019 PROGRESS HNO ID: [id number] Author: Lety Lemus (Tech) Service: ? Author Type: Inspector Balance Bridge Type: Progress Notes Filed: 07/24/2019 2:38 PM [...] [place] July 24, 2019 2:38 PM Normal [facility] Lab Report: Prothrombin Time w/INRon 07-28-2017 Coagulation tissue factor induced in platelet poor plasma 28.9 s High 11.7-14.9 [facility] Work Phone: INR in blood by coagulation 2.7 {INR} Invalid Interpretation Code [facility] Work Phone: [phone] Lab Report: Prothrombin Time w/INRon 07-14-2017 Coagulation tissue factor induced in platelet poor plasma 21.2 s High 11.7-14.9 [facility] Work Phone: [phone] INR in blood by coagulation 1.9 {INR} Invalid Interpretation Code [facility] Work Phone: [phone] Lab Report: Prothrombin Time w/INRon 06-11-2017 Coagulation tissue factor induced in platelet poor plasma 26.7 s High 11.7-14.9 [facility] Work Phone: [phone] INR in blood by coagulation 2.6 {INR} Invalid Interpretation Code [facility] Work Phone: [phone] Lab Report: CBC W/Diff, Auto matedon 05-04-2017 Absolute Neut 2.3 X10 3/UL Invalid Interpretation Code 2.0-7.7 [facility] Work Phone: [phone] Basophils/100 WBC Auto (Bld) 0.2 % Invalid Interpretation Code 0-1 [facility] Work Phone: [phone] Eosinophils/100 leukocytes 3.4 % Invalid Interpretation Code 0-5 [facility] Work Phone: [phone] Erythrocyte distribution width Auto Ratio (RBC) 18.0 % High 11.6-14.6 [facility] Work Phone: [phone] Erythrocytes (RBC) 3.46 10*6/uL Low 4.2-5.4 [facility] Work Phone: [phone] Hematocrit (HCT) 34.1 % Low 37-47 [facility] Work Phone: [phone] Hemoglobin mass conc (Bld) 10.5 g/dL Low 12.0-15.0 [facility] Work Phone: [phone] immature granulocytes, percentage of total cells, blood 0.000 % Invalid Interpretation Code 0.0-0.9 [facility] Work Phone: [phone] Immature granulocytes/100 WBC (Bld) 0.000 % Invalid Interpretation Code 0.0-0.9 [facility] Work Phone: [phone] Lymphocytes 1.85 X10 3/UL Invalid Interpretation Code 0.83-4.51 [facility] Work Phone: [phone] Lymphocytes/100 leukocytes 39.6 % Invalid Interpretation Code 19-41 [facility] Work Phone: [phone] MCH 30.3 pg Invalid Interpretation Code 27.0-32.0 [facility] Work Phone: [phone] MCHC mass conc (RBC) 30.8 G/GL Low 32-[address] [facility] Work Phone: [phone] MCV 98.6 fL Invalid Interpretation Code 81-99 [facility] Work Phone: [phone] Monocytes/100 leukocytes 8.4 % Invalid Interpretation Code 0-10 [facility] Work Phone: [phone] neutrophil count, blood 2.3 X10 3/UL Invalid Interpretation Code 2.0-7.7 [facility] Work Phone: [phone] Neutrophils/100 WBC Auto (Bld) 48.4 % Invalid Interpretation Code 47-70 [facility] Work Phone: [phone] Platelets 211 10*3/mm3 Invalid Interpretation Code 150-450 [facility] Work Phone: [phone] PMV by Julio 10.3 fL Invalid Interpretation Code 6.2-12.0 [facility] Work Phone: [phone] RDW SD 64.0 fL High 35.1-43.9 [facility] Work Phone: [phone] red blood cell distribution width, size density 64.0 fL High 35.1-43.9 [facility] Work Phone: [phone] WBC (Leukocytes) 4.7 10*3/uL Invalid Interpretation Code 4.4-11.0 [facility] Work Phone: [phone] Lab Report: Comprehensive [facility] Profilon 05-04-2017 Alanine aminotransferase (ALT) 8 U/L Low 12-78 [facility] Work Phone: [phone] Albumin 4.0 g/dL Invalid Interpretation Code 3.4-5.0 [facility] Work Phone: Albumin/Globulin Ratio 1.1 {ratio} Invalid Interpretation Code 0.9-2.4 [facility] Work Phone: [phone] Alkaline phosphatase (ALP) 70 U/L Invalid Interpretation Code 45-117 [facility] Work Phone: [phone] Anion gap 6 mmol/L Invalid Interpretation Code 5-[address] [facility] Work Phone: [phone] Aspartate aminotransferase (AST) 18 U/L Invalid Interpretation Code 15-37 [facility] Work Phone: [phone] Bilirubin (total) 0.50 mg/dL Invalid Interpretation Code 0.20-1.00 [facility] Work Phone: [phone] BUN/Creatinine Ratio 24.1 RATIO High 10-20 [facility] Work Phone: [phone] Calcium 8.9 mg/dL Invalid Interpretation Code 8.5-10.[address] [facility] Work Phone: [phone] Chloride 109 mmol/L High 98-[address] [facility] Work Phone: [phone] CO2 24.0 mmol/L Invalid Interpretation Code 21.0-32.[address] [facility] Work Phone: [phone] Creatinine 0.87 mg/dL Invalid Interpretation Code 0.55-1.02 [facility] Work Phone: [phone] eGFR (non-black) 68 mL/min/{1.73_m2} Invalid Interpretation Code >60 [facility] Work Phone: [phone] eGFR (non-black) 82 mL/min/{1.73_m2} Invalid Interpretation Code >60 [facility] Work Phone: [phone] Globulin 3.5 g/dL Invalid Interpretation Code 2.2-4.[address] [facility] Work Phone: [phone] Glucose 91 mg/dL Invalid Interpretation Code 70-110 [facility] Work Phone: [phone] Glucose mass conc 91 mg/dL Invalid Interpretation Code 70-110 [facility] Work Phone: [phone] Potassium molar conc 4.4 mmol/L Invalid Interpretation Code 3.5-5.1 [facility] Work Phone: [phone] Protein 7.5 g/dL Invalid Interpretation Code 6.4-8.2 [facility] Work Phone: [phone] Sodium 139 mmol/L Invalid Interpretation Code 136-145 [facility] Work Phone: [phone] Urea nitrogen 21 mg/dL High 7-18 [facility] Work Phone: [phone] Lab Report: Lipid Profileon 05-04-2017 Cholesterol 196 mg/dL Invalid Interpretation Code 200 [facility] Work Phone: [phone] HDL Cholesterol 83 mg/dL Invalid Interpretation Code [facility] Work Phone: [phone] LDL Cholesterol 103 mg/dL Invalid Interpretation Code 0-130 [facility] Work Phone: [phone] Triglyceride 52 mg/dL Invalid Interpretation Code [facility] Work Phone: [phone] very low density lipoproteins 10 mg/dL Invalid Interpretation Code 5-40 [facility] Work Phone: [phone] Lab Report: Prothrombin Time w/INRon 05-04-2017 INR Coag RelTime (PPP) 2.2 {INR} Invalid Interpretation Code [facility] Work Phone: [phone] Prothrombin time (PT) Coag time (PPP) 23.8 s High 11.7-14.9 [facility] Work Phone: [phone] Coumadin Management: Warfari n Calcon 03-26-2017 INR Coag RelTime (Bld) Hospital lab Invalid Interpretation Code [facility] Work Phone: [phone] INR Coag RelTime (Bld) 2 to 3 Invalid Interpretation Code [facility] Work Phone: [phone] INR Coag RelTime (PPP) 2.3 {INR} Invalid Interpretation Code [facility] Work Phone: [phone] Prothrombin time (PT) Coag time (PPP) 24.2 s Invalid Interpretation Code [facility] Work Phone: [phone] Lab Report: Prothrombin Time w/INRon 03-26-2017 Prothrombin time (PT) Coag time (PPP) 24.2 s High 11.7-14.9 [facility] Work Phone: [phone] Coumadin Management: Warfari n Calcon 02-19-2017 Coagulation tissue factor induced in platelet poor plasma 31.2 s Invalid Interpretation Code [facility] Work Phone: [phone] INR in blood by coagulation Hospital lab Invalid Interpretation Code [facility] Work Phone: [phone] INR in blood by coagulation 3.2 {INR} Invalid Interpretation Code [facility] Work Phone: [phone] INR in blood by coagulation 2 to 3 Invalid Interpretation Code [facility] Work Phone: [phone] Replaced Document: Prothromb in Time w/INRon 02-19-2017 Coagulation tissue factor induced in platelet poor plasma 31.4 s High 11.7-14.9 [facility] Work Phone: [phone] Coumadin Management: Shankarana espinosa Calcon 02-10-2017 Coagulation tissue factor induced in platelet poor plasma 18.9 s Invalid Interpretation Code [facility] Work Phone: [phone] INR in blood by coagulation Hospital lab Invalid Interpretation Code [facility] Work Phone: [phone] INR in blood by coagulation 1.7 {INR} Invalid Interpretation Code [facility] Work Phone: [phone] INR in blood by coagulation 2 to 3 Invalid Interpretation Code [facility] Work Phone: [phone] Lab Report: Prothrombin Time w/INRon 02-10-2017 Coagulation tissue factor induced in platelet poor plasma 18.9 s High 11.7-14.9 [facility] Work Phone: [phone] Coumadin Management: Shankarana espinosa Calcon 01-08-2017 Coagulation tissue factor induced in platelet poor plasma 25.0 s Invalid Interpretation Code [facility] Work Phone: [phone] INR Coag RelTime (PPP) 2.4 {INR} [facility] Work Phone: [phone] INR in blood by coagulation Hospital lab Invalid Interpretation Code [facility] Work Phone: [phone] INR in blood by coagulation 2.4 {INR} Invalid Interpretation Code [facility] Work Phone: [phone] INR in blood by coagulation 2 to 3 Invalid Interpretation Code [facility] Work Phone: [phone] international normalized ratio (INR) range 2 to 3 [facility] Work Phone: [phone] Lab Report: Prothrombin Time w/INRon 01-08-2017 Coagulation tissue factor induced in platelet poor plasma 25 s High 11.7-14.9 [facility] Work Phone: [phone] Office Visiton 01-08-2017 Documentation of current medications (procedure) Done Invalid Interpretation Code [facility] Work Phone: [phone] Protein mass conc Done [facility] Work Phone: [phone] Coumadin Management: Warfari n Calcon 12-07-2016 Coagulation tissue factor induced in platelet poor plasma 22.0 s Invalid Interpretation Code [facility] Work Phone: [phone] INR Coag RelTime (PPP) 2.0 {INR} [facility] Work Phone: [phone] INR in blood by coagulation Hospital lab Invalid Interpretation Code [facility] Work Phone: [phone] INR in blood by coagulation 2.0 {INR} Invalid Interpretation Code [facility] Work Phone: [phone] INR in blood by coagulation 2 to 3 Invalid Interpretation Code [facility] Work Phone: [phone] international normalized ratio (INR) range 2 to 3 [facility] Work Phone: [phone] Lab Report: Prothrombin Time w/INRon 12-07-2016 Coagulation tissue factor induced in platelet poor plasma 22 s High 11.7-14.9 [facility] Work Phone: [phone] Coumadin Management: Warfari n Calcon 11-25-2016 INR in blood by coagulation Hospital lab Invalid Interpretation Code [facility] Work Phone: [phone] INR in blood by coagulation 2.5 {INR} Invalid Interpretation Code [facility] Work Phone: [phone] INR in blood by coagulation 2 to 3 Invalid Interpretation Code [facility] Work Phone: [phone] Lab Report: Prothrombin Time w/INRon 11-25-2016 Coagulation tissue factor induced in platelet poor plasma 25.7 s Invalid Interpretation Code [facility] Work Phone: [phone] Lab Report: Prothrombin Time w/INRon 11-12-2016 INR Coag RelTime (PPP) 2.0 {INR} [facility] Work Phone: [phone]) Prothrombin time (PT) Coag time (PPP) 21.5 s High 11.7-14.9 [facility] Work Phone: [phone] Coumadin Management: Narinder espinosa Calcon 11-02-2016 Coagulation tissue factor induced in platelet poor plasma 16.5 s [facility] Work Phone: [phone] INR in blood by coagulation Hospital lab [facility] Work Phone: [phone] INR in blood by coagulation 1.4 {INR} Invalid Interpretation Code [facility] Work Phone: [phone] INR in blood by coagulation 2 to 3 Invalid Interpretation Code [facility] Work Phone: [phone] international normalized ratio (INR) range 2 to 3 [facility] Work Phone: [phone] Lab Report: Prothrombin Time w/INRon 11-02-2016 Coagulation tissue factor induced in platelet poor plasma 16.5 s High 11.7-14.9 [facility] Work Phone: [phone] Office Visit: [facility] 09-03-19 Documentation of current medications (procedure) Done Invalid Interpretation Code [facility] Work Phone: [phone] Fall risk assessment No Invalid Interpretation Code [facility] Work Phone: [phone] Protein mass conc Done [facility] Work Phone: [phone] Clinical Lists Update: 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 performance 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 coordinator 08-27-2016 Left ventricular Ejection fraction 50 % Invalid Interpretation Code [facility] Work Phone: [phone] Office Visiton 02-28-2016 Tobacco smoking status NHIS Tobacco smoking status NHIS Invalid Interpretation Code [facility] Work Phone: [phone] Tobacco smoking status NHIS Never smoker [facility] Work Phone: [phone] Tobacco use CENTRAL [facility] Never smoker Invalid Interpretation Code [facility] Work Phone: [phone] Lab Report: CBC W/Diff, Auto matedon 11-26-2014 Absolute Neut 2.1 X10 3/UL Invalid Interpretation Code 2.0-7.7 [facility] Work Phone: [phone] Absolute Neutrophil count 2.1 X10 3/UL Invalid Interpretation Code 2.0-7.7 [facility] Work Phone: Basophils/100 leukocytes 1.1 % High 0-1 [facility] Work Phone: [phone] Basophils/100 WBC (Bld) 1.1 % High 0-1 [facility] Work Phone: Eosinophils/100 leukocytes 5.3 % High 0-5 [facility] Work Phone: Eosinophils/100 WBC (Bld) 5.3 % High 0-5 [facility] Work Phone: [phone] Erythrocyte distribution width Ratio (RBC) 58.0 fL High 35.1-43.9 [facility] Work Phone: [phone] Erythrocyte distribution width Ratio (RBC) 16.7 % High 11.6-14.6 [facility] Work Phone: [phone] Erythrocytes (RBC) 3.72 10*6/uL Low 4.2-5.[address] [facility] Work Phone: [phone] Hematocrit (HCT) 37.1 % Invalid Interpretation Code 37-47 [facility] Work Phone: [phone] Hematocrit Volume Fraction (Bld) 37.1 % 37-47 [facility] Work Phone: [phone] Hemoglobin (HGB) 11.7 g/dL Low 12.0-15.0 [facility] Work Phone: [phone] Immature granulocytes #/vol (Bld) 0.000 % 0.0-0.9 [facility] Work Phone: [phone] immature granulocytes, percentage of total cells, blood 0.000 % Invalid Interpretation Code 0.0-0.9 [facility] Work Phone: [phone] Immature granulocytes/100 WBC (Bld) 0.000 % Invalid Interpretation Code 0.0-0.9 [facility] Work Phone: [phone] Lymphocytes 1.54 X10 3/UL Invalid Interpretation Code 0.83-4.51 [facility] Work Phone: [phone] Lymphocytes #/vol (Bld) 1.54 X10 3/UL 0.83-4.51 [facility] Work Phone: [phone] Lymphocytes/100 leukocytes 35.2 % Invalid Interpretation Code 19-41 [facility] Work Phone: [phone] Lymphocytes/100 WBC (Bld) 35.2 % 19-41 [facility] Work Phone: [phone] MCH 31.5 pg Invalid Interpretation Code 27.0-32.0 [facility] Work Phone: [phone] MCH Entitic mass (RBC) 31.5 pg 27.0-32.0 [facility] Work Phone: [phone] MCHC 31.5 G/GL Low 32-36 [facility] Work Phone: [phone] MCHC mass conc (RBC) 31.5 G/GL Low 32-[address] [facility] Work Phone: [phone] MCV 99.7 fL High 81-99 [facility] Work Phone: [phone] MCV Entitic volume (RBC) 99.7 fL High 81-99 [facility] Work Phone: [phone] Monocytes/100 leukocytes 10.0 % Invalid Interpretation Code 0-10 [facility] Work Phone: [phone] Monocytes/100 WBC (Bld) 10.0 % 0-10 [facility] Work Phone: [phone] Neutrophils/100 leukocytes 48.4 % Invalid Interpretation Code 47-70 [facility] Work Phone: [phone] Neutrophils/100 WBC (Bld) 48.4 % 47-70 [facility] Work Phone: [phone] Platelet mean volume Entitic volume (Bld) 10.2 fL 6.2-12.0 [facility] Work Phone: [phone] Platelets 265 10*3/mm3 Invalid Interpretation Code 150-450 [facility] Work Phone: [phone] Platelets #/vol (Bld) 265 10*3/mm3 150-450 [facility] Work Phone: [phone] PMV by Carrington-Mami 10.2 fL Invalid Interpretation Code 6.2-12.0 [facility] Phone: [phone] RBC #/vol (Bld) 3.72 10*6/uL Low 4.2-5.4 [facility] Work Phone: [phone] RDW SD 58.0 fL High 35.1-43.9 [facility] Work Phone: [phone] RDW-CA 16.7 % High 11.6-14.6 [facility] Work Phone: [phone] red blood cell distribution width, size density 58.0 fL High 35.1-43.9 [facility] Work Phone: [phone] WBC #/vol (Bld) 4.4 10*3/uL 4.4-11.0 [facility] Work Phone: [phone] WBC (Leukocytes) 4.4 10*3/uL Invalid Interpretation Code 4.4-11.0 [facility] Work Phone: [phone] Office Visit: [facility] 11-27-19 15 General cardiovascular disease 10Y risk [#] [place]D'Agostino 8 % Invalid Interpretation Code [facility] Phone: [phone] Office Visit: [facility] 08-23-19 15 Tobacco smoking status NHIS Never Invalid Interpretation Code [facility] Phone: [phone] Office Visiton 04-25-2014 cardiac risk group B Invalid Interpretation Code [facility] Phone: [phone] Replaced Document: Anthony Phillips CG Observationson 04-25-2014 BUN (urea nitrogen) Sinus Rhythm -With r ate variation cv = 12.-Left bundle branch block and left axis. ABNORMAL Invalid Interpretation Code [facility] Phone: [phone] EKG QRS axis -47 deg Invalid Interpretation Code [facility] Work Phone: [phone] GE use only - for [employer] import when terms are not otherwise specified 456 ms Invalid Interpretation Code [facility] Phone: [phone] Interpretation Sinus Rhythm -With r ate variation cv = 12.-Left bundle branch block and left axis. ABNORMAL [facility] Work Phone: [phone] [place] 56 deg Invalid Interpretation Code [facility] Work Phone: [phone] P wave axis, electrocardiogram 56 deg Invalid Interpretation Code [facility] Work Phone: [phone] Interval 160 ms Invalid Interpretation Code [facility] Work Phone: [phone] ND interval, electrocardiogram 160 ms Invalid Interpretation Code [facility] Work Phone: [phone] Pulse (Heart Rate) 65 /min Invalid Interpretation Code [facility] Work Phone: [phone] QRS axis, electrocardiogram -47 deg Invalid Interpretation Code [facility] Work Phone: [phone] QRS Duration 148 ms Invalid Interpretation Code [facility] Work Phone: [phone] QRS duration, electrocardiogram 148 ms Invalid Interpretation Code [facility] Work Phone: [phone] QT Interval new path ms Invalid Interpretation Code [facility] Work Phone: [phone] QT interval, electrocardiogram new path ms Invalid Interpretation Code [facility] Work Phone: [phone] QTc Otto 456 ms Invalid Interpretation Code [facility] Work Phone: [phone] T [place] -1 deg Invalid Interpretation Code [facility] Work Phone: [phone] T wave axis, electrocardiogram -1 deg Invalid Interpretation Code [facility] Work Phone: [phone] Clinical Lists Update: Prelo performance improvement coordinator 03-14-2014 Albumin 4.1 g/dL Invalid Interpretation Code [facility] Work Phone: [phone] Albumin/Globulin Ratio 1.6 {ratio} Invalid Interpretation Code [facility] Work Phone: [phone] Anion gap 3 mmol/L Low [facility] Work Phone: [phone] Anion gap molar conc 3 mmol/L Low [facility] Work Phone: [phone] BUN/Creatinine Ratio 11.4 mg/mg Invalid Interpretation Code [facility] Work Phone: [phone] Calcium 9.5 mg/dL Invalid Interpretation Code [facility] Work Phone: [phone] Chloride 108 mmol/L High [facility] Work Phone: [phone] Cholesterol 201 mg/dL High [facility] Work Phone: [phone] CO2 30.0 mmol/L Invalid Interpretation Code [facility] Work Phone: [phone] CO2 ppres (BldV) 30.0 mmol/L [facility] Work Phone: [phone] Creatinine 0.7 mg/dL Invalid Interpretation Code [facility] Work Phone: [phone] eGFR (non-black) 108 mL/min/{1.73_m2} Invalid Interpretation Code [facility] Work Phone: [phone] eGFR (non-black) 89 mL/min/{1.73_m2} Invalid Interpretation Code [facility] Work Phone: [phone] Globulin 2.5 g/dL Invalid Interpretation Code [facility] Work Phone: [phone] Globulin mass conc (S) 2.5 g/dL [facility] Work Phone: [phone] Glomerular Filtration Rate 108 mL/min/1.73m2 [facility] Work Phone: [phone] Glucose 81 mg/dL Invalid Interpretation Code [facility] Work Phone: [phone] Glucose mass conc 81 mg/dL Invalid Interpretation Code [facility] Work Phone: [phone] HDL Cholesterol 74 mg/dL Invalid Interpretation Code [facility] Work Phone: [phone] LDL Cholesterol 116 mg/dL Invalid Interpretation Code [facility] Work Phone: [phone] Potassium 4.4 mmol/L Invalid Interpretation Code [facility] Work Phone: [phone] Protein 6.6 g/dL Invalid Interpretation Code [facility] Work Phone: [phone] Sodium 141 mmol/L Invalid Interpretation Code [facility] Work Phone: [phone] Triglyceride 55 mg/dL Invalid Interpretation Code [facility] Work Phone: [phone] Urea nitrogen 8 mg/dL Invalid Interpretation Code [facility] Work Phone: [phone] very low density lipoproteins 11 mg/dL Invalid Interpretation Code [facility] Work Phone: Vital Signs Date Time Vital Sign Value Performing Clinician Tosha albert 11-06-2024 17:04-0400 Body temperature 98.6 [degF] Lynette Micheal MANAGED CARE ANALYST-C Work Phone: [facility] 11-06-2024 17:04-0400 Diastolic blood pressure 44 mm[Hg] Lynette Micheal MANAGED CARE ANALYST-C Work Phone: [facility] 11-06-2024 17:04-0400 Heart rate 70 /min Lynette Micheal MANAGED CARE ANALYST-C Work Phone: [facility] 11-06-2024 17:04-0400 Respiratory rate 16 /min Lynette Micheal MANAGED CARE ANALYST-C Work Phone: [facility] 11-06-2024 17:04-0400 SaO2% (BldA) [Mass fraction] 98 % Lynette Micheal MANAGED CARE ANALYST-C Work Phone: [facility] 11-06-2024 17:04-0400 Systolic blood pressure 107 mm[Hg] Lynette Micheal MANAGED CARE ANALYST-C Work Phone: [facility] 11-06-2024 13:31-0400 Body height 162.56 cm Lynette Micheal MANAGED CARE ANALYST-C Work Phone: [facility] 11-06-2024 13:31-0400 Body mass index (BMI) [Ratio] 24.2 kg/m2 Lynette Micheal MANAGED CARE ANALYST-C Work Phone: [facility] 11-06-2024 13:31-0400 Body weight 63.95 kg Lynette Micheal MANAGED CARE ANALYST-C Work Phone: [facility] 11-03-2024 07:27-0400 Body temperature 98.1 [degF] Lynette Micheal MANAGED CARE ANALYST-C Work Phone: [facility] 11-03-2024 07:27-0400 Diastolic blood pressure 53 mm[Hg] Lynette Micheal MANAGED CARE ANALYST-C Work Phone: [facility] 11-03-2024 07:27-0400 Heart rate 67 /min Lynette Micheal MANAGED CARE ANALYST-C Work Phone: [facility] 11-03-2024 07:27-0400 Respiratory rate 16 /min Lynette Micheal MANAGED CARE ANALYST-C Work Phone: [facility] 11-03-2024 07:27-0400 SaO2% (BldA) [Mass fraction] 92 % Lynette Micheal MANAGED CARE ANALYST-C Work Phone: [facility] 11-03-2024 07:27-0400 Systolic blood pressure 111 mm[Hg] Lynette Micheal MANAGED CARE ANALYST-C Work Phone: [facility] 11-03-2024 02:48-0400 Body height 162.56 cm Lynette Micheal MANAGED CARE ANALYST-C Work Phone: [facility] 11-03-2024 02:48-0400 Body mass index (BMI) [Ratio] 26.1 kg/m2 Lynette Micheal MANAGED CARE ANALYST-C Work Phone: [facility] 11-03-2024 02:48-0400 Body weight 69.1 kg Lynette Micheal MANAGED CARE ANALYST-C Work Phone: [facility] 11-02-2024 15:03-0400 Body temperature 97.8 [degF] Lynette Micheal MANAGED CARE ANALYST-C Work Phone: [facility] 11-02-2024 15:03-0400 Diastolic blood pressure 62 mm[Hg] Lynette Micheal MANAGED CARE ANALYST-C Work Phone: [facility] 11-02-2024 15:03-0400 Heart rate 78 /min Lynette Micheal MANAGED CARE ANALYST-C Work Phone: [facility] 11-02-2024 15:03-0400 Respiratory rate 15 /min Lynette Micheal MANAGED CARE ANALYST-C Work Phone: [facility] 11-02-2024 15:03-0400 SaO2% (BldA) [Mass fraction] 99 % Lynette Micheal MANAGED CARE ANALYST-C Work Phone: [facility] 11-02-2024 15:03-0400 Systolic blood pressure 124 mm[Hg] Lynette Burton MANAGED CARE ANALYST-C Work Phone: [facility] 11-02-2024 10:56-0400 Body height 162.56 cm Lynette Burton MANAGED CARE ANALYST-C Work Phone: [facility] 11-02-2024 10:56-0400 Body mass index (BMI) [Ratio] 26.8 kg/m2 Lynette Burton MANAGED CARE ANALYST-C Work Phone: [facility] 11-02-2024 10:56-0400 Body weight 70.9 kg Lynette Burton MANAGED CARE ANALYST-C Work Phone: [facility] 10-28-2024 20:57-0400 Body mass index (BMI) [Ratio] 23.6 kg/m2 Lynette Burton MANAGED CARE ANALYST-C Work Phone: [facility] 10-26-2024 13:23-0400 Diastolic blood pressure 59 mm[Hg] Dr. Michaela Mcfadden DO Work Phone: [facility] 10-26-2024 13:23-0400 Heart rate 79 /min Dr. Michaela Mcfadden DO Work Phone: [facility] 10-26-2024 13:23-0400 Respiratory rate 16 /min Dr. Michaela Mcfadden DO Work Phone: [facility] 10-26-2024 13:23-0400 Systolic blood pressure 114 mm[Hg] Dr. Michaela Mcfadden DO Work Phone: [facility] 10-05-2024 13:01-0400 Body temperature 97.6 [degF] Dr. Michaela Mcfadden DO Work Phone: [facility] 09-27-2024 20:51-0400 Body mass index (BMI) [Ratio] 23.6 kg/m2 Dr. Michaela Mcfadden DO Work Phone: [facility] 09-14-2024 13:18-0400 Body temperature 96.7 [degF] Dr. Michaela Mcfadden DO Work Phone: [facility] 09-14-2024 13:18-0400 Diastolic blood pressure 59 mm[Hg] Dr. Michaela Mcfadden DO Work Phone: [facility] 09-14-2024 13:18-0400 Heart rate 77 /min Dr. Michaela Mcfadden DO Work Phone: [facility] 09-14-2024 13:18-0400 Respiratory rate 18 /min Dr. Michaela Mcfadden DO Work Phone: [facility] 09-14-2024 13:18-0400 Systolic blood pressure 137 mm[Hg] Dr. Michaela Mcfadden DO Work Phone: [facility] 08-30-2024 07:35-0400 Body mass index (BMI) [Ratio] 24 kg/m2 Dr. Michaela Mcfadden DO Work Phone: [facility] 08-30-2024 07:35-0400 Body weight 63.[address] Michaela Mcfadden DO Work Phone: [facility] 08-30-2024 07:35-0400 Diastolic blood pressure 60 mm[Hg] Dr. Michaela Mcfadden DO Work Phone: [facility] 08-30-2024 07:35-0400 Heart rate 66 /min Dr. Michaela Mcfadden DO Work Phone: [facility] 08-30-2024 07:35-0400 Respiratory rate 18 /min Dr. Michaela Mcfadden DO Work Phone: [facility] 08-30-2024 07:35-0400 SaO2% (BldA) [Mass fraction] 98 % Dr. Michaela Mcfadden DO Work Phone: [facility] 08-30-2024 07:35-0400 Systolic blood pressure 110 mm[Hg] Dr. Michaela Mcfadden DO Work Phone: [facility] 08-28-2024 22:00-0400 Body mass index (BMI) [Ratio] 23.6 kg/m2 Dr. Michaela Mcfadden DO Work Phone: [facility] 08-17-2024 13:03-0400 Body temperature 97.1 [degF] Lynette Micheal MANAGED CARE ANALYST-C Work Phone: [facility] 08-17-2024 13:03-0400 Diastolic blood pressure 56 mm[Hg] Lynette Micheal MANAGED CARE ANALYST-C Work Phone: [facility] 08-17-2024 13:03-0400 Heart rate 74 /min Lynette Micheal MANAGED CARE ANALYST-C Work Phone: [facility] 08-17-2024 13:03-0400 Respiratory rate 14 /min Lynette Micheal MANAGED CARE ANALYST-C Work Phone: [facility] 08-17-2024 13:03-0400 Systolic blood pressure 117 mm[Hg] Lynette Micheal MANAGED CARE ANALYST-C Work Phone: [facility] 07-29-2024 03:57-0500 Body mass index (BMI) [Ratio] 23.6 kg/m2 Lynette Micheal MANAGED CARE ANALYST-C Work Phone: [facility] 07-27-2024 13:26-0500 Body temperature 97 [degF] Lynette Micheal MANAGED CARE ANALYST-C Work Phone: [facility] 07-27-2024 13:26-0500 Diastolic blood pressure 75 mm[Hg] Lynette Micheal MANAGED CARE ANALYST-C Work Phone: [facility] 07-27-2024 13:26-0500 Heart rate 69 /min Lynette Micheal MANAGED CARE ANALYST-C Work Phone: [facility] 07-27-2024 13:26-0500 Respiratory rate 18 /min Lynette Micheal MANAGED CARE ANALYST-C Work Phone: [facility] 07-27-2024 13:26-0500 Systolic blood pressure 115 mm[Hg] Lynette Micheal MANAGED CARE ANALYST-C Work Phone: [facility] 07-01-2024 01:26-0500 Body mass index (BMI) [Ratio] 23.6 kg/m2 Lynette Micheal MANAGED CARE ANALYST-C Work Phone: [facility] 06-22-2024 13:10-0500 Body temperature 96.8 [degF] Lynette Micheal MANAGED CARE ANALYST-C Work Phone: [facility] 06-22-2024 13:10-0500 Diastolic blood pressure 49 mm[Hg] Lynette Micheal MANAGED CARE ANALYST-C Work Phone: [facility] 06-22-2024 13:10-0500 Heart rate 74 /min Lynette Micheal MANAGED CARE ANALYST-C Work Phone: [facility] 06-22-2024 13:10-0500 Respiratory rate 18 /min Lynette Micheal MANAGED CARE ANALYST-C Work Phone: [facility] 06-22-2024 13:10-0500 Systolic blood pressure 130 mm[Hg] Lynette Micheal MANAGED CARE ANALYST-C Work Phone: [facility] 05-31-2024 04:18-0500 Body mass index (BMI) [Ratio] 23.6 kg/m2 Lynette Micheal MANAGED CARE ANALYST-C Work Phone: [facility] 05-18-2024 13:32-0500 Body temperature 97 [degF] Lynette Micheal MANAGED CARE ANALYST-C Work Phone: [facility] 05-18-2024 13:32-0500 Diastolic blood pressure 51 mm[Hg] Lynette Micheal MANAGED CARE ANALYST-C Work Phone: [facility] 05-18-2024 13:32-0500 Heart rate 72 /min Lynette Micheal MANAGED CARE ANALYST-C Work Phone: [facility] 05-18-2024 13:32-0500 Respiratory rate 18 /min Lynette Micheal MANAGED CARE ANALYST-C Work Phone: [facility] 05-18-2024 13:32-0500 Systolic blood pressure 111 mm[Hg] Lynette Micheal MANAGED CARE ANALYST-C Work Phone: [facility] 04-29-2024 23:14-0500 Body mass index (BMI) [Ratio] 23.6 kg/m2 Lynette Micheal MANAGED CARE ANALYST-C Work Phone: [facility] 09-13-2023 11:03-0400 Body height 162.[address] Karissa Madrid Work Phone: [facility] 09-13-2023 11:03-0400 Body weight 60.[address] Karissa Madrid Work Phone: [facility] 09-10-2023 08:49-0400 Body mass index (BMI) [Ratio] 23 kg/m2 Dr. Karissa Madrid Work Phone: [facility] 08-24-2023 09:26-0400 Body height 162.[address] Karissa Madrid Work Phone: [facility] 08-24-2023 09:26-0400 Body mass index (BMI) [Ratio] 23 kg/m2 Dr. Karissa Madrid Work Phone: [facility] 08-24-2023 09:26-0400 Body weight 60.[address] Karissa Madrid Work Phone: [facility] 08-24-2023 09:26-0400 Respiratory rate 16 /min Dr. Karissa Madrid Work Phone: [facility] 06-30-2023 21:58-0500 Body mass index (BMI) [Ratio] 23.6 kg/m2 Dr. Karissa Madrid Work Phone: [facility] 05-30-2023 20:38-0500 Body mass index (BMI) [Ratio] 23.6 kg/m2 Dr. Karissa Madrid Work Phone: [facility] 04-30-2023 03:30-0500 Body mass index (BMI) [Ratio] 23.6 kg/m2 Dr. Karissa Madrid Work Phone: [facility] 03-30-2023 23:18-0400 Body mass index (BMI) [Ratio] 23.6 kg/m2 Dr. Karissa Madrid Work Phone: [facility] 02-28-2023 02:03-0400 Body mass index (BMI) [Ratio] 23.6 kg/m2 Dr. Karissa Madrid Work Phone: [facility] 01-28-2023 22:35-0400 Body mass index (BMI) [Ratio] 23.6 kg/m2 Dr. Karissa Madrid Work Phone: [facility] 12-29-2022 00:31-0400 Body mass index (BMI) [Ratio] 23.6 kg/m2 Dr. Karissa Madrid Work Phone: [facility] 11-27-2022 21:58-0400 Body mass index (BMI) [Ratio] 23.6 kg/m2 Dr. Karissa Madrid Work Phone: [facility] 11-24-2022 10:01-0400 Body weight 60.[address] Karissa Madrid Work Phone: [facility] 11-24-2022 10:01-0400 Diastolic blood pressure 79 mm[Hg] Dr. Karissa Madrid Work Phone: [facility] 11-24-2022 10:01-0400 Heart rate 63 /min Dr. Karissa Madrid Work Phone: [facility] 11-24-2022 10:01-0400 Respiratory rate 22 /min Dr. Karissa Madrid Work Phone: [facility] 11-24-2022 10:01-0400 Systolic blood pressure 134 mm[Hg] Dr. Karissa Madrid Work Phone: [facility] 11-24-2022 09:04-0400 Body height 162.[address] Karissa Madrid Work Phone: [facility] 11-13-2022 07:55-0400 Body mass index (BMI) [Ratio] 23.9 kg/m2 Dr. Karissa Madrid Work Phone: [facility] 11-13-2022 07:55-0400 Body temperature 97.4 [degF] Dr. Karissa Madrid Work Phone: [facility] 11-13-2022 07:55-0400 Body weight 63.[address] Karissa Madrid Work Phone: [facility] 11-13-2022 07:55-0400 Diastolic blood pressure 79 mm[Hg] Dr. Karissa Madrid Work Phone: [facility] 11-13-2022 07:55-0400 Heart rate 63 /min Dr. Karissa Madrid Work Phone: [facility] 11-13-2022 07:55-0400 Respiratory rate 18 /min Dr. Karissa Madrid Work Phone: [facility] 11-13-2022 07:55-0400 SaO2% (BldA) [Mass fraction] 95 % Dr. Karissa Madrid Work Phone: [facility] 11-13-2022 07:55-0400 Systolic blood pressure 152 mm[Hg] Dr. Karissa Madrid Work Phone: [facility] 10-29-2022 08:44-0400 Body mass index (BMI) [Ratio] 23.6 kg/m2 Dr. Karissa Madrid Work Phone: [facility] 09-27-2022 01:13-0400 Body mass index (BMI) [Ratio] 23.6 kg/m2 Dr. Karissa Madrid Work Phone: [facility] 08-29-2022 00:08-0400 Body mass index (BMI) [Ratio] 23.6 kg/m2 Dr. Karissa Madrid Work Phone: [facility] 07-28-2022 20:01-0500 Body mass index (BMI) [Ratio] 23.6 kg/m2 Dr. Karissa Madrid Work Phone: [facility] 05-31-2022 02:03-0500 Body mass index (BMI) [Ratio] 23.6 kg/m2 Dr. Michaela Mcfadden Work Phone: [facility] 04-30-2022 08:44-0500 Body height 162.[address] Michaela Mcfadden Work Phone: [facility] 04-30-2022 08:42-0500 Body mass index (BMI) [Ratio] 23.5 kg/m2 Dr. Michaela Mcfadden Work Phone: [facility] 04-30-2022 08:42-0500 Body weight 62.[address] Michaela Mcfadden Work Phone: [facility] 04-30-2022 08:42-0500 Diastolic blood pressure 71 mm[Hg] Dr. Michaela Mcfadden Work Phone: [facility] 04-30-2022 08:42-0500 Heart rate 60 /min Dr. Michaela Mcfadden Work Phone: [facility] 04-30-2022 08:42-0500 Respiratory rate 18 /min Dr. Michaela Mcfadden Work Phone: [facility] 04-30-2022 08:42-0500 SaO2% (BldA) [Mass fraction] 95 % Dr. Michaela Mcfadden Work Phone: [facility] 04-30-2022 08:42-0500 Systolic blood pressure 128 mm[Hg] Dr. Michaela Mcfadden Work Phone: [facility] 04-29-2022 23:02-0500 Body mass index (BMI) [Ratio] 23.6 kg/m2 Dr. Michaela Mcfadden Work Phone: [facility] 03-31-2022 09:49-0400 Body mass index (BMI) [Ratio] 23.6 kg/m2 [facility] 02-27-2022 21:19-0400 Body mass index (BMI) [Ratio] 23.6 kg/m2 [facility] Work Phone: 01-28-2022 22:52-0400 Body mass index (BMI) [Ratio] 23.6 kg/m2 [facility] Work Phone: 12-28-2021 02:14-0400 Body mass index (BMI) [Ratio] 23.6 kg/m2 [facility] Work Phone: 11-28-2021 06:54-0400 Body mass index (BMI) [Ratio] 23.6 kg/m2 Dr. Michaela Mcfadden Work Phone: [facility] Work Phone: 10-28-2021 20:37-0400 Body mass index (BMI) [Ratio] 23.6 kg/m2 Dr. Michaela Mcfadden Work Phone: [facility] Work Phone: 10-21-2021 08:47-0400 Body height 162.[address] Michaela Mcfadden Work Phone: [facility] Work Phone: 10-21-2021 08:47-0400 Body mass index (BMI) [Ratio] 23.3 kg/m2 Dr. Michaela Mcfadden Work Phone: [facility] Work Phone: 10-21-2021 08:47-0400 Body weight 61.[address] Michaela Mcfadden Work Phone: [facility] Work Phone: 10-21-2021 08:47-0400 Diastolic blood pressure 63 mm[Hg] Dr. Michaela Mcfadden Work Phone: [facility] Work Phone: 10-21-2021 08:47-0400 Heart rate 60 /min Dr. Michaela Mcfadden Work Phone: [facility] Work Phone: 10-21-2021 08:47-0400 Respiratory rate 18 /min Dr. Michaela Mcfadden Work Phone: [facility] Work Phone: 10-21-2021 08:47-0400 SaO2% (BldA) [Mass fraction] 99 % Dr. Michaela Mcfadden Work Phone: [facility] Work Phone: 10-21-2021 08:47-0400 Systolic blood pressure 130 mm[Hg] Dr. Michaela Mcfadden Work Phone: [facility] Work Phone: 10-21-2021 08:47-0400 Body height 162.[address] Michaela Mcfadden Work Phone: [facility] Work Phone: 10-21-2021 08:47-0400 Body mass index (BMI) [Ratio] 23.3 kg/m2 Dr. Michaela Mcfadden Work Phone: [facility] Work Phone: 10-21-2021 08:47-0400 Body weight 61.[address] Michaela Mcfadden Work Phone: [facility] Work Phone: 10-21-2021 08:47-0400 Diastolic blood pressure 63 mm[Hg] Dr. Michaela Mcfadden Work Phone: [facility] Work Phone: 10-21-2021 08:47-0400 Heart rate 60 /min Dr. Michaela Mcfadden Work Phone: [facility] Work Phone: 10-21-2021 08:47-0400 Respiratory rate 18 /min Dr. Michaela Mcfadden Work Phone: [facility] Work Phone: 10-21-2021 08:47-0400 SaO2% (BldA) [Mass fraction] 99 % Dr. Michaela Mcfadden Work Phone: [facility] Work Phone: 10-21-2021 08:47-0400 Systolic blood pressure 130 mm[Hg] Dr. Michaela Mcfadden Work Phone: [facility] Work Phone: 09-28-2021 03:17-0400 Body mass index (BMI) [Ratio] 23.6 kg/m2 Dr. Michaela Mcfadden Work Phone: [facility] Work Phone: 08-29-2021 01:41-0400 Body mass index (BMI) [Ratio] 23.6 kg/m2 [facility] Work Phone: 07-29-2021 09:37-0500 Body mass index (BMI) [Ratio] 23.6 kg/m2 Dr. Michaela Mcfadden Work Phone: [facility] Work Phone: 07-29-2021 08:37-0500 Body mass index (BMI) [Ratio] 23.6 kg/m2 [facility] Work Phone: 06-30-2021 21:53-0500 Body mass index (BMI) [Ratio] 23.6 kg/m2 [facility] Work Phone: 06-01-2021 03:05-0500 Body mass index (BMI) [Ratio] 23.6 kg/m2 [facility] Work Phone: 04-30-2021 01:17-0500 Body mass index (BMI) [Ratio] 23.6 kg/m2 [facility] Work Phone: 01-08-2017 07:38-0400 BMI (Body Mass Index) 24.46 kg/m2 Ashly Schreiber RN [facility] Work Phone: 01-08-2017 07:38-0400 BP [...] Phone: 09-02-2016 08:51-0400 Weight 65.23 kg [facility] Work Phone: 02-28-2016 09:44-0400 BSA (Body Surface Area) 1.78 m2 Ashly Schreiber RN [facility] Work Phone: 02-28-2016 09:44-0400 Pulse Oximetry 98 % Ashly Schreiber RN [facility] Work Phone: 04-25-2014 10:22-0500 Heart rate 65 /min Ashly Schreiber RN [facility] Work Phone: Encounters Encounter Date Encounter Type Care Provider Facility Start: 11-06-2024 Evaluation and management of inpatient Dr. Shelton Parra DO -Progressive Care Unit Work Phone: Start: 11-06-[address] Anupam Lizarraga MD -Laboratory Work Phone: Start: 11-03-2024 End: 11-03-2024 Emergency department patient visit [facility] Facility:[facility] Start: 11-02-2024 End: 11-02-2024 Emergency department patient visit [facility] Facility:[facility] Start: 10-29-2024 ambulatory [facility] Facility:[facility] Start: 10-26-2024 Non-patient / Non-visit Zarina MUNGUIA -[facility] Start: 10-26-2024 End: 10-26-[address] Michaela Mcfadden DO Work Phone: [facility] Work Phone: Start: 10-26-2024 End: 10-26-2024 Discharged Recurring Zarina [facility]UNGUIA [facility] Work Phone: Start: 10-05-2024 End: 10-05-[address] Anupam Lizarraga MD -Laboratory Work Phone: Start: 10-05-[address] Anupam Lizarraga MD -Laboratory Work Phone: Start: 10-05-2024 End: 10-05-[address] Michaela Mcfadden DO Work Phone: [facility] Work Phone: Start: 10-05-2024 Non-patient / Non-visit Zarina Fish PA -[facility] Start: 09-14-2024 Non-patient / Non-visit Zarina Fish PA -[facility] Start: 09-14-2024 End: 09-27-2024 ambulatory [facility] Facility:[facility] Start: 09-14-2024 End: 09-27-2024 Discharged Recurring Zarina Fish [place] -[facility] Work Phone: Start: 09-11-2024 End: 09-11-2024 ambulatory [facility] Facility:[facility] Start: 09-11-2024 End: 09-11-[address] Anupam Lizarraga MD -[facility] Work Phone: Start: 08-31-2024 ambulatory Zarina Fish [facility] Start: 08-31-2024 Non-patient / Non-visit Zarina Fish PA -[facility] Start: 08-30-2024 End: 08-30-2024 ambulatory [facility] Start: 08-30-2024 End: 08-30-[address] Anupam Lizarraga MD -[facility] Work Phone: Start: 08-17-2024 Non-patient / Non-visit Zarina Fish PA -[facility] Start: 08-17-2024 End: 08-28-2024 [facility] MANAGED CARE ANALYST-C Work Phone: [facility] Work Phone: Start: 08-17-2024 End: 08-28-[address] Anupam Lizarraga MD -Laboratory Work Phone: Start: 08-17-2024 Registered Recurring Zarina Fish [facility] Work Phone: Start: 08-10-2024 ambulatory [facility] Start: 08-10-2024 Non-patient / Non-visit Zarina Fish PA -[facility] Start: 07-27-2024 Non-patient / Non-visit Zarinamonae Fish PA -[facility] Start: 07-27-2024 End: 07-28-2024 [facility] Facility:[facility] Start: 07-27-2024 End: 07-28-2024 Discharged Recurring Zarina Fish PA -[facility] Work Phone: Start: 07-20-2024 ambulatory [facility] Start: 07-20-2024 Non-patient / Non-visit Zarina Fish PA -[facility] Start: 07-12-2024 ambulatory [facility] Start: 07-12-2024 Non-patient / Non-visit Juanita Jacobsen MANAGED CARE ANALYST-C -[facility] Start: 07-06-2024 [facility] Start: 07-06-2024 Non-patient / Non-visit Zarina Fish PA -[facility] Start: 06-30-2024 End: 06-30-2024 [facility] Facility:[facility] Start: 06-30-2024 End: 06-30-[address] Anupam Lizarraga MD -Laboratory Work Phone: Start: 06-22-2024 Non-patient / Non-visit Zarina Fish PA -[facility] Start: 06-22-2024 End: 06-30-2024 [facility] Facility:[facility] Start: 06-22-2024 End: 06-30-2024 Discharged Recurring Zarina Fish PA -[facility] Work Phone: Start: 06-12-2024 End: 06-12-2024 ambulatory [facility] Start: 06-12-2024 End: 06-12-[address] Anupam Lizarraga MD -[facility] Work Phone: Start: 06-01-2024 [facility] Start: 01-02-2025 Non-patient / Non-visit Zarina Farfanhn PA -[facility] Start: 05-18-2024 Non-patient / Non-visit Zarina Farfanhn PA -[facility] Start: 05-18-2024 End: 05-30-2024 Discharged Recurring Zarina Farfankady MUNGUIA -[facility] Work Phone: Start: 05-18-2024 End: 05-30-2024 ambulatory [place] Micheal Facility:[facility] Start: 05-11-2024 ambulatory [place] Miche[facility] Start: 05-11-2024 Non-patient / Non-visit Zarina Farfanhn PA -[facility] Start: 05-05-2024 ambulatory [place] [facility]he[facility] Start: 05-05-2024 Non-patient / Non-visit Zarina Farfanhn PA -[facility] Start: 05-03-2024 ambulatory [place] Micheal [facility] Start: 05-02-2024 ambulatory [place] [facility]heal [facility] Start: 05-02-2024 Non-patient / Non-visit Dr. Stan De Luna MD -[facility] Start: 05-02-2024 End: 05-02-[address] Stan De Luna MD -Cardiovascular Services Work Phone: Start: 05-02-2024 End: 05-02-2024 ambulatory [place] Micheal Facility:[facility] Start: 04-26-2024 End: 04-29-2024 ambulatory [place] Micheal Facility:[facility] Start: 04-13-2024 ambulatory Zarina Fish [facility] Start: 04-06-2024 ambulatory [place] [facility]heal [facility] Start: 03-30-2024 ambulatory [place] [facility]he[facility] Start: 03-30-2024 End: 03-30-2024 ambulatory [place] Micheal Facility:[facility] Start: 03-24-2024 End: 03-24-2024 ambulatory [place] Micheal Facility:[facility] Start: 03-20-2024 End: 03-20-2024 ambulatory [place] [facility]heal [facility] Start: 03-20-2024 End: 03-20-2024 ambulatory Lynette Micheal Facility:[facility] Start: 03-13-2024 End: 03-13-2024 ambulatory Lynette Micheal [facility] Start: 03-06-2024 ambulatory Lynette Micheal [facility] Start: 03-06-2024 ambulatory Lynette Micheal [facility] Start: 03-06-2024 End: 03-06-2024 ambulatory Lynette Micheal Facility:[facility] Start: 02-23-2024 End: 02-23-2024 ambulatory Lynette Micheal [facility] Start: 02-23-2024 End: 02-23-2024 ambulatory Lynette Micheal Facility:[facility] Start: 01-26-2024 End: 01-26-2024 ambulatory Lynette Micheal [facility] Start: 01-12-2024 End: 01-12-2024 Emergency department patient visit [facility] Facility:[facility] Start: 01-11-2024 End: 01-11-2024 ambulatory [place] Micheal Facility:[facility] Start: 12-17-2023 End: 12-29-2023 ambulatory Pinnacle Zia Facility:[facility] Start: 12-13-2023 End: 12-13-2023 ambulatory Lynette Micheal [facility] Start: 11-11-2023 End: 11-11-2023 ambulatory Anupam Zia Facility:[facility] Start: 09-13-2023 End: 09-13-2023 Admission to same day surgery center Dr. Karissa Madrid Work Phone: [facility]-Motor Installer/Special Procedures Work Phone: Start: 09-13-2023 End: 09-13-[address] Karissa Madrid Work Phone: [facility] Work Phone: Start: 08-24-2023 End: 08-24-[address] Karissa Madrid Work Phone: [facility] Work Phone: Start: 08-24-2023 End: 08-24-[address] Karissa Madrid Work Phone: [facility] Work Phone: Start: 08-24-2023 End: 08-24-[address] Karissa Madrid Work Phone: [facility]-Radiology, [facility] Work Phone: Start: 08-24-2023 End: 08-24-[address] Karissa Madrid Work Phone: [facility] Work Phone: Start: 07-29-2023 End: 07-29-[address] Karissa Madrid Work Phone: [facility] Work Phone: Start: 07-29-2023 End: 07-29-[address] [facility] Start: 06-16-2023 End: 06-16-[address] Karissa Madrid Work Phone: [facility] Work Phone: Start: 06-16-2023 End: 06-16-[address] Karissa Madrid [facility] Start: 06-02-2023 End: 06-02-[address] Karissa Madrid Work Phone: [facility] Work Phone: Start: 04-30-2023 End: 05-30-[address] Karissa Madrid Work Phone: [facility] Work Phone: Start: 04-30-2023 End: 05-30-[address] Karissa Madrid [facility] Start: 04-21-2023 End: 04-29-[address] Karissa Madrid Work Phone: [facility] Work Phone: Start: 04-21-2023 End: 04-29-[address] Karissa Madrid [facility] Start: 03-25-2023 End: 03-25-[address] Karissa Madrid [facility] Start: 02-22-2023 End: 02-22-[address] Karissa Madrid Work Phone: [facility] Work Phone: Start: 02-22-2023 End: 02-22-[address] Karissa Madrid [facility] Start: 02-22-2023 End: 02-22-[address] Karissa Madrid Work Phone: [facility] Work Phone: Start: 01-21-2023 End: 01-21-[address] Karissa Madrid Work Phone: [facility] Work Phone: Start: 01-21-2023 End: 01-21-[address] Karissa Madrid [facility] Start: 12-18-2022 End: 12-28-[address] Karissa Madrid Work Phone: [facility] Work Phone: Start: 12-18-2022 End: 12-28-[address] Karissa Madrid [facility] Start: 11-24-[address] Karissa Madrid Work Phone: [facility] Start: 11-24-2022 End: 11-24-[address] Karissa Madrid Work Phone: [facility] Work Phone: Start: 11-24-2022 End: 11-24-[address] Karissa Madrid Work Phone: [facility]-Laboratory Work Phone: Start: 11-24-[address] [place] Work Phone: [facility]-Laboratory Work Phone: Start: 11-24-2022 End: 11-24-2022 Admission to same day surgery center Dr. Karissa Madrid Work Phone: [facility] Start: 11-24-2022 End: 11-24-[address] Karissa Madrid Work Phone: [facility] Work Phone: Start: 11-24-2022 End: 11-24-[address] Karissa Madrid Work Phone: [facility] Work Phone: Start: 11-13-2022 End: 11-13-[address] Karissa Madrid Work Phone: [facility] Work Phone: Start: 10-22-2022 End: 10-28-[address] Karissa Madrid Work Phone: [facility] Work Phone: Start: 10-22-2022 End: 10-28-[address] Karissa Madrid [facility] Start: 10-09-2022 End: 10-09-[address] Karissa Madrid Work Phone: [facility] Start: 09-30-2022 End: 09-30-[address] Karissa Madrid Work Phone: [facility] Work Phone: Start: 09-30-2022 End: 09-30-[address] Karissa Madrid Work Phone: [facility] Start: 09-17-2022 End: 09-27-[address] Karissa Madrid Work Phone: [facility] Work Phone: Start: 09-17-2022 End: 09-27-[address] Karissa Madrid [facility] Start: 09-04-2022 End: 09-04-[address] Karissa Madrid Work Phone: [facility] Work Phone: Start: 09-04-2022 End: 09-04-[address] Karissa Madrid Work Phone: [facility]-Laboratory Start: 09-04-2022 End: 09-04-[address] Karissa Madrid Work Phone: [facility] Start: 08-20-2022 End: 08-28-[address] Karissa Madrid Work Phone: [facility] Work Phone: Start: 08-20-2022 End: 08-28-[address] Karissa Madrid [facility] Start: 07-13-2022 End: 07-13-[address] Michaela Mcfadden Work Phone: [facility] Work Phone: Start: 07-13-2022 End: 07-13-[address] Michaela Mcfadden Work Phone: [facility]-Laboratory Start: 05-29-2022 End: 05-29-[address] Michaela Mcfadden Work Phone: [facility] Work Phone: Start: 05-29-2022 End: 05-29-[address] Michaela Mcfadden Work Phone: [facility]-Laboratory Start: 05-27-2022 End: 05-28-2022 ambulatory [facility]: Start: 05-27-2022 End: 05-27-2022 Patient encounter procedure LOU BURTON [facility] Start: 05-15-[address] Michaela Mcfadden Work Phone: [facility]-Laboratory Start: 05-15-2022 Non-patient / Non-visit Dr. Michaela Mcfadden Work Phone: [facility] Start: 05-15-2022 End: 05-15-[address] Michaela Mcfadden Work Phone: [facility] Work Phone: Start: 05-15-2022 End: 05-15-[address] Michaela Mcfadden Work Phone: [facility]-Cardiovascular Services Start: 04-30-2022 End: 04-30-[address] Michaela Mcfadden Work Phone: [facility] Start: 04-15-2022 End: 04-29[facility] Start: 04-15-2022 End: 04-29-2022 [facility] Start: 03-05-2022 End: 03-05-2022 Discharged Recurring [facility]-Laboratory Start: 02-04-2022 End: 02-04-2022 ambulatory [facility] Work Phone: Start: 02-04-2022 End: 02-04-2022 Discharged Recurring [facility]Labor[facility] Start: 01-05-2022 End: 01-05-2022 Discharged Recurring [facility] Start: 12-05-2021 End: 12-28-[address] Michaela Mcfadden Work Phone: [facility]-Laboratory Start: 11-17-2021 End: 11-17-[address] Michaela Mcfadden Work Phone: [facility]-Laboratory Start: 10-21-2021 End: 10-21-[address] Michael[facility] Mc[facility]adden [facility] Start: 10-21-2021 End: 10-21-[address] Michaela Mcfadden Work Phone: [facility] Start: 09-25-2021 End: 09-25-2021 Discharged Recurring [facility] Start: 08-28-2021 End: 08-28-2021 [facility] Start: 07-01-2021 End: 07-01-2021 Discharged Recurring [facility]Labor[facility] Start: 06-03-2021 End: 06-30-2021 Discharged Recurring [facility]Laboratory Start: 05-21-2021 End: 05-31-2021 Discharged Recurring [facility]-Laboratory Start: 09-09-2016 End: 09-10-2016 Ambulatory [facility] Facility:[facility] Procedures Date Procedure Procedure Detail Performing Clinician Start: 11-06-2024 Measurement of occul t blood in stool specimen using immunoassay Lynette ASH Work Phone: Start: 11-06-2024 Estimated creatinine clearance Lynette Burton MANAGED CARE ANALYST-C Work Phone: Start: 11-03-2024 Measurement of occul t blood in stool specimen using immunoassay Lynette Burton MANAGED CARE ANALYST-C Work Phone: Start: 11-03-2024 Computed tomography of abdomen and pelvis with contrast Lynettetom Burton MANAGED CARE ANALYST-C Work Phone: Start: 11-03-2024 Estimated creatinine clearance Lynette Burton MANAGED CARE ANALYST-C Work Phone: Start: 11-02-2024 Plain X-ray of shoulder Lynettetom Burton MANAGED CARE ANALYST-C Work Phone: Start: 11-02-2024 Plain X-ray of tibia and fibula Lynette Burton MANAGED CARE ANALYST-C Work Phone: Start: 11-02-2024 X-ray of ankle, thre e or more views Lynette Micheal MANAGED CARE ANALYST-C Work Phone: Start: 11-02-2024 End: 11-02-2024 X-ray of knee, four or more views Lynette Micheal MANAGED CARE ANALYST-C Work Phone: Start: 11-02-2024 Estimated creatinine clearance Lynette Burton MANAGED CARE ANALYST-C Work Phone: Start: 11-02-2024 CT angiography of ne ck vessels Lynettetom Burton MANAGED CARE ANALYST-C Work Phone: Start: 11-02-2024 CT cervical spine wi thout contrast Lynette Burton MANAGED CARE ANALYST-C Work Phone: Start: 11-02-2024 CT of head without contrast Lynette Micheal MANAGED CARE ANALYST-C Work Phone: Start: 11-02-2024 CT of thorax, abdome n and pelvis with contrast Lynette Burton MANAGED CARE ANALYST-C Work Phone: Start: 11-02-2024 CT of face Lynette Salmon ar MANAGED CARE ANALYST-C Work Phone: Start: 08-17-2024 Anaerobic microbial culture Lynette Micheal MANAGED CARE ANALYST-C Work Phone: Start: 08-17-2024 Gram stain microscopy R achel Micheal MANAGED CARE ANALYST-C Work Phone: Start: 08-17-2024 End: 08-17-2024 Microbial culture, routine Lynette Micheal MANAGED CARE ANALYST-C Work Phone: Start: 06-22-2024 Anaerobic microbial culture Lynette Micheal MANAGED CARE ANALYST-C Work Phone: Start: 06-22-2024 Gram stain microscopy R achel Micheal MANAGED CARE ANALYST-C Work Phone: Start: 06-22-2024 Wound microscopy, cu lture and sensitivities Lynette Micheal MANAGED CARE ANALYST-C Work Phone: Start: 06-08-2024 MRI of lower extremity Lynette Micheal MANAGED CARE ANALYST-C Work Phone: Start: 06-01-2024 Plain X-ray of tibia and fibula Lynette Micheal MANAGED CARE ANALYST-C Work Phone: Start: 06-01-2024 X-ray of ankle, two views Lynette Micheal MANAGED CARE ANALYST-C Work Phone: Start: 05-11-2024 Anaerobic microbial culture Lynette Micheal MANAGED CARE ANALYST-C Work Phone: Start: 05-11-2024 Gram stain microscopy R achel Micheal MANAGED CARE ANALYST-C Work Phone: Start: 05-11-2024 Microbial culture, routine Lynette Micheal MANAGED CARE ANALYST-C Work Phone: Start: 05-04-2024 Anaerobic microbial culture Lynette Micheal MANAGED CARE ANALYST-C Work Phone: Start: 05-04-2024 Gram stain microscopy R achel Micheal MANAGED CARE ANALYST-C Work Phone: Start: 05-04-2024 Microbial culture, routine Lynette Micheal MANAGED CARE ANALYST-C Work Phone: Start: 08-24-2023 Plain chest X-ray [...] Anupam Lizarraga MD Start: 01-08-2017 End: 01-08-2017 MMM Anupam Lizarraga MD Start: 01-08-2017 End: 01-11-2017 Chest x-ray Anupam Lizarraga MD Start: 01-08-2017 End: 01-08-2018 Coagulation factor induced.INR assay in platelet poor plasma Anupam Lizarraga MD Start: 01-08-2017 End: 01-08-2017 Follow Up Appt 6 months Bharathi Mendez Start: 01-08-2017 End: 01-08-2017 MMBharathi Lizarraga MD Start: 01-06-2017 End: 01-08-2017 Follow [...] Anupam Lizarraga MD Start: 09-02-2016 End: 09-02-2016 PAUL Gage PA-C Work Phone: Start: 09-02-2016 End: 01-08-2017 [facility] Brook Gage PA-C Work Phone: Start: 09-02-2016 End: 09-02-2016 Follow Up Appt 3 months Brook salas PA-C Work Phone: Start: 09-02-2016 End: 09-02-2016 PAUL Gage PA-C Work Phone: Start: 09-02-2016 End: [...] 05-31-2016 Miscellaneous (quali fier value) LOU BURTON CLIENT SERVICE ADMINISTRATOR-COSTUMER Comment on above: Had a amol place in l eft leg for a broken femur. Start: 02-28-2016 End: 02-28-2016 Follow Up Appt 6 months Bharathi Mendez Start: 02-28-2016 End: 02-28-2016 MMBharathi Lizarraga MD Start: 02-28-2016 End: 02-28-2016 Follow [...] Anupam Lizarraga MD Start: 09-04-2015 End: 09-04-2015 CONGREGATIONAL CARE PASTOR Brook Gage PA-C Work Phone: Start: 09-04-2015 End: 09-04-2015 Follow Up Appt 6 months Brook salas PA-C Work Phone: Start: 09-04-2015 End: 09-04-2015 PAUL Gage PA-C [...] Start: 06-07-2015 End: 06-07-2015 Pm device progr damiral, dual Anupam Lizarraga MD Start: 03-01-2015 End: 03-02-2015 Documentation of current medications Anupam Lizarraga MD Start: 03-01-2015 End: 03-01-2015 Follow Up Appt 6 months Bharathi Mendez Start: 03-01-2015 End: 03-01-2015 EDI Lizarraga MD Start: 03-01-2015 End: 03-02-2015 Documentation of current medications Anupam Lizarraga MD Start: 03-01-2015 End: 03-01-2015 Follow Up Appt 6 months Bharathi Mendez Start: 03-01-2015 End: 03-01-2015 EDI Lizarraga MD Start: 11-26-2014 End: 11-26-2014 *CBC [...] factor induced.INR assay in platelet poor plasma Brook Gage PA-C Work Phone: Start: 11-26-2014 End: 11-27-2014 [...] PA-C Work Phone: Start: 11-26-2014 End: 11-26-2014 Pm device progr eval, dual Brook Rodriguez PA-C Work Phone: Start: 08-22-2014 End: 08-22-2014 CONGREGATIONAL CARE PASTOR Brook Gage PA-C Work Phone: Start: 08-22-2014 End: 08-22-2014 Follow Up Appt 3 months Brook salas PA-C Work Phone: Start: 08-22-2014 End: 08-22-2014 CONGREGATIONAL CARE PASTOR Brook Gage PA-C Work Phone: Start: 08-22-2014 End: 08-22-2014 Follow Up Appt 3 months Brook salas [...] pacemaker, d evice (physical object) LOU BURTON CLIENT SERVICE ADMINISTRATOR-COSTUMER Plan of Treatment Date Care Activity Detail Author Start: 11-06-2024 Verification routine [facility] Start: 11-06-2024 Hospital admission, emergency, from emergency room, medical nature [facility] Start: 11-06-2024 Admission procedure [facility] Start: 11-06-2024 Administration of blood product [facility] Start: 11-06-2024 Leukocyte reduced red blood cells [facility] Start: 11-06-2024 ambulatory Facility:[facility] Start: 11-05-2024 ambulatory Facility:[facility] Start: 11-03-2024 [facility] Start: 11-02-2024 [facility] Start: 09-13-2023 Patient discharge [facility] Start: 07-14-2017 End: 07-14-2017 Appointment Appointment [facility] Work Phone: Start: 07-12-2017 End: 07-12-2017 Appointment Appointment [facility] Work Phone: Start: 01-08-2017 End: 01-11-2017 Chest x-ray X-Ray, Chest, PA & Lateral [facility] Work Phone: Start: 01-08-2017 End: 01-08-2017 Follow Up Appt 6 months Follow Up Appt 6 months [facility] Work Phone: Start: 01-08-2017 End: 02-10-2017 INR Coag RelTime (PPP) *PT/INR - Standing Order [facility] Work Phone: Start: 01-08-2017 End: 01-08-2017 MMM MMM [facility] Work Phone: Start: 01-08-2017 End: 01-08-2017 Appointment Appointment [facility] Work Phone: Start: 01-08-2017 End: 01-11-2017 Chest x-ray X-Ray, Chest, PA & Lateral [facility] Work Phone: Start: 01-08-2017 End: 02-10-2017 Coagulation factor induced.INR assay in platelet poor plasma *PT/INR - Standing Order [facility] Work Phone: Start: 01-08-2017 End: 01-08-2017 Follow Up Appt 6 months Follow Up Appt 6 months [facility] Work Phone: Start: 01-08-2017 End: 01-08-2017 MMM MMM [facility] Work Phone: Start: 01-06-2017 End: 01-08-2017 Follow Up Appt 6 months Follow Up Appt 6 months [facility] Work Phone: Start: 01-06-2017 End: 01-08-2017 Pacer Clinic Pacer Clinic [facility] Work Phone: Start: 01-06-2017 End: 01-06-2017 Appointment Appointment [facility] Work Phone: Start: 01-06-2017 End: 01-08-2017 Follow Up Appt 6 months Follow Up Appt 6 months [facility] Work Phone: Start: 01-06-2017 End: 01-08-2017 Pacer Clinic Pacer Clinic [facility] Work Phone: Start: 09-02-2016 End: 09-02-2016 CONGREGATIONAL CARE PASTOR [facility] Work Phone: Start: 09-02-2016 End: 09-02-2016 Echocardiography Echocardiogram (limited) [facility] Work Phone: Start: 09-02-2016 End: 09-02-2016 Follow Up Appt 3 months Follow Up Appt 3 months [facility] Work Phone: Start: 09-02-2016 End: 09-02-2016 CONGREGATIONAL CARE PASTOR CONGREGATIONAL CARE PASTOR [facility] Work Phone: Start: 09-02-2016 End: 12-07-2016 Echocardiography Echocardiogram (limited) [facility] Work Phone: Start: 09-02-2016 [...] 6 months Follow Up Appt 6 months [facility] Work Phone: Start: 07-07-2016 End: 08-20-2016 Pacer Clinic Pacer Clinic [facility] Work Phone: Start: 02-28-2016 End: 02-28-2016 Follow Up Appt 6 months Follow Up Appt 6 months [facility] Work Phone: Start: 02-28-2016 End: 02-28-2016 MMM MMM [facility] Work Phone: Start: 02-28-2016 End: 02-28-2016 Follow Up Appt 6 months Follow Up Appt 6 months [facility] Work Phone: Start: 02-28-2016 End: 02-28-2016 MMM MMM [facility] Work Phone: Start: 12-06-2015 End: 02-28-2016 Follow Up Appt 6 months Follow Up Appt 6 months [facility] Work Phone: Start: 12-06-2015 End: 02-28-2016 Pacer Clinic Pacer Clinic [facility] Work Phone: Start: 12-06-2015 End: 02-28-2016 Follow Up Appt 6 months Follow Up Appt 6 months [facility] Work Phone: Start: 12-06-2015 End: 02-28-2016 Pacer Clinic Pacer Clinic [facility] Work Phone: Start: 09-04-2015 End: 09-04-2015 CONGREGATIONAL CARE PASTOR CONGREGATIONAL CARE PASTOR [facility] Work Phone: Start: 09-04-2015 End: 09-04-2015 Follow Up Appt 6 months Follow Up Appt 6 months [facility] Work Phone: Start: 09-04-2015 End: 09-04-2015 CONGREGATIONAL CARE PASTOR CONGREGATIONAL CARE PASTOR [facility] Work Phone: Start: 09-04-2015 End: 09-04-2015 Follow Up Appt 6 months Follow Up Appt 6 months [facility] Work Phone: Start: 06-07-2015 End: 09-04-2015 Follow Up Appt 6 months Follow Up Appt 6 months [facility] Work Phone: Start: 06-07-2015 End: 09-04-2015 Pacer Clinic Pacer Clinic [facility] Work Phone: Start: 06-07-2015 End: 09-04-2015 Follow Up Appt 6 months Follow Up Appt 6 months [facility] Work Phone: Start: 06-07-2015 End: 09-04-2015 Pacer Clinic Pacer Clinic [facility] Work Phone: Start: 03-01-2015 End: 03-01-2015 Follow Up Appt 6 months Follow Up Appt 6 months [facility] Work Phone: Start: 03-01-2015 End: 03-01-2015 MMM MMM [facility] Work Phone: Start: 03-01-2015 End: 03-01-2015 Follow Up Appt 6 months Follow Up Appt 6 months [facility] Work Phone: Start: 03-01-2015 End: 03-01-2015 MMM MMM [facility] Work Phone: Start: 11-26-2014 End: 11-26-2014 *CBC with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 Referring Provider Active S tart: June 22, 2024 End: June 30, 2024 Team Status: Active Member Role Status Dates Lynette Burton NP-C Primary Care Provider Active Start: June 22, 2024 EZRA Rincon Attending Provider Active Star t: June 22, 2024 EZRA Rincon Other Provider Active Start: J anuary 2024 Mame Jacob NP, MANAGED CARE ANALYST-C Referring Provider Active S tart: June 22, [...] End: June 30, 2024 Lou Burton NP, MANAGED CARE ANALYST-C Other Provider Active S tart: June 30, 2024 End: June 30, 2024 Lynette Micheal , MANAGED CARE ANALYST-C Primary Care Provider Active Start: June 30, 2024 End: June 30, 2024 Team Status: Active Member Role Status Dates Lynette Burton , MANAGED CARE ANALYST-C Primary Care Provider Active Start: August 17, 2024 EZRA Rincon Attending Provider Active Star t: August 17, 2024 Mame Jacob MANAGED CARE ANALYST, MANAGED CARE ANALYST-C Referring Provider Active S tart: August 17, [...] Start: October 05, 2024 Lou Burton NP, MANAGED CARE ANALYST-C Other Provider Active S tart: October 05, 2024 Lynettetom Burton , MANAGED CARE ANALYST-C Primary Care Provider Active Start: October 05, 2024 Team Status: Inactive Member Role Status Dates Lynettetom Burton , MANAGED CARE ANALYST-C Primary Care Provider Active Start: November 03, 2024 End: November 03, 2024 Dr. Cash Zarate DO Emergency Provider Active Start: November 03, 2024 End: November 03, 2024 Team Status: Active Member Role Status Dates Dr. Michaela Mcfadden DO Family Provider Active Start : November 06, 2024 Dr. Anupam Lizarraga MD Attending Provider Active S tart: November 06, 2024 Dr. Anupam Lizarraga MD Referring Provider Active S tart: November 06, 2024 Brook Gage PA, PA Other Provider Active Start: November 06, 2024 Lou Burton NP, MANAGED CARE ANALYST-C Other Provider Active S tart: November 06, 2024 Lynette Burton , MANAGED CARE ANALYST-C Primary Care Provider Active Start: November 06, 2024 Team Status: Active Member Role Status Dates Lynettetom Burton , MANAGED CARE ANALYST-C Primary Care Provider Active Start: November 06, 2024 Dr. Wei Sandhu DO Emergency Provider Active Start: November 06, 2024 Dr. Shelton Parra DO Admit Provider Active Start: November 06, 2024 Dr. Shelton Parra DO Attending Provider Active Start: November 06, 2024 FOR RECORDS PERTAINING TO PATIENTS WHO [...] BE BASED ON THE PRIMARY CLINICAL RECORDS. [facility] [employer] [facility]. provides no warranty or guarantee of the accuracy or completeness of information in this document.
--- OUTSIDE RECORDS SUMMARY | 2024-11-07 00:13 | XMS RPT_ITS | CCD ---
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 27.0-32.0 [facility] Mean corpuscular hemoglobin concentration (MCHC) determinationOrdered By: Cash Zarate on 11-03-2024 MCHC (RBC) [Mass/Vol] 32.6 g/dL 32-36 [facility] Mean platelet volume determi nationOrdered By: Cash Zarate on 11-03-2024 Platelet mean volume (Bld) [Entitic vol] 11.0 fL 6.2-12.0 [facility] Monocyte percentageOrdered B y: Cash Zarate on 11-03-2024 Monocytes/100 WBC (Bld) 8.6 % 0-10 [facility] Neutrophil percentageOrdered By: Cash Zarate on 11-03-2024 Neutrophils/100 WBC (Bld) 75.9 % High 47-70 [facility] Nucleated red blood cell per centageOrdered By: Cash Zarate on 11-03-2024 Nucleated RBC/100 WBC (Bld) [Ratio] 2.4 % 0-5 [facility] Partial Thromboplast Timeon 11-03-2024 aPTT Coag (Bld) [Time] 33.5 s Normal 24.1-36.2 [facility] Comment on above: Order Comment: REDRA W. PREVIOUS SPECIMEN REJECTED DUE TOQNS. 11/03/246 Linda Zapata. Performed By: #### L 300.4310, L300.3900 ####[facility] [address] [place], [address] Platelet countOrdered By: Sherrie Zarate on 11-03-2024 Platelets (Bld) [#/Vol] 246 10*3/uL 150-450 [facility] Potassium measurement (mass/ volume)Ordered By: Cash Zarate on 11-03-2024 Potassium (Unsp spec) [Mass/Vol] 4.3 mmol/L 3.3-5.1 [facility] Prothrombin Time w/INRon INR Coag (PPP) [Relative time] 4.4 {INR} Invalid Interpretation Code [facility] Comment on above: Order Comment: REDRA W. PREVIOUS SPECIMEN REJECTED DUE TOQNS. 11/03/24355 Linda Zapata. Result Comment: CRIT ICAL VALUE CALLED TO [id number] Dawson Contreras.RESULTS READ BACK BY SAME. Performed By: #### L 300.4310, L300.3900 ####[facility] [address] [place], [address] PT Coag (PPP) [Time] 42.8 s High 11.7-14.9 [facility] Comment on above: Order Comment: REDRA W. PREVIOUS SPECIMEN REJECTED DUE TOQNS. 11/03/24355 Linda Zapata. Performed By: #### L 300.4310, L300.3900 ####[facility] [address] [place], [address] INR Normal [facility] Comment on above: Result Comment: This specimen has been REJECTED due to Laboratory criteria:Quanity Not Sufficient.STEPHANIE has been notified of need of recollection.11/03/24354 Linda Zapata Performed By: #### L 500.2500, L300.3900, M100.7900, L100.0100 ####[facility] [address] [place], [address] PROTIME Normal 11.7-14.9 [facility] Comment on above: Result Comment: This specimen has been REJECTED due to Laboratory criteria:Quanity Not Sufficient.STEPHANIE has been notified of need of recollection.11/03/24354 Linda Zapata Performed By: #### L 500.2500, L300.3900, M100.7900, L100.0100 ####[facility] [address] [place], [address] Prothrombin timeOrdered By: Cash Zarate on 11-03-2024 PT Coag (PPP) [Time] 42.8 s High 11.7-14.9 [facility] RBC Auto (Bld) [#/Vol]Ordere d By: Cash Zarate on 11-03-2024 RBC (Bld) [#/Vol] 2.69 10*6/uL Low 4.2-5.4 [facility] Serum creatinine measurement (mass/volume)Ordered By: Cash Zarate on 11-03-2024 Creatinine [Mass/Vol] 1.49 mg/dL High 0.70-1.20 [facility] Serum glucose measurement (m ass/volume)Ordered By: Cash Zarate on 11-03-2024 Glucose [Mass/Vol] 209 mg/dL High 70-99 [facility] Serum or plasma calcium darlene urement (mass/volume)Ordered By: Cash Zarate on 11-03-2024 Calcium [Mass/Vol] 9.8 mg/dL 7.6-11.0 [facility] Serum or plasma urea nitroge n measurement (mass/volume)Ordered By: Cash Zarate on 11-03-2024 Urea nitrogen [Mass/Vol] 27 mg/dL High 4-19 [facility] Sodium levelOrdered By: Franklin Zarate on 11-03-2024 Sodium [Moles/Vol] 139 mmol/L 133-145 [facility] Stool Occult Blood iFOBon STOB Negative Normal [facility] Comment on above: Performed By: #### L 500.2500, L300.3900, M100.7900, L100.0100 ####[facility] [address] [facility] [address] [place], [place], [phone] Stool gastrointestinal hemog lobin detection by immunologic methodOrdered By: Cash Zarate on 11-03-2024 Lower GI hemoglobin IA Ql (Stl) [facility] Type AND Screenon 11-03-2024 ABO and Rh group Nom (Bld) Blood group A Rh(D) positive Normal [facility] Comment on above: Order Comment: A Performed By: #### B TS ####[facility] [address] [facility] [address] [place], [place], [address] White blood cell (WBC) count Ordered By: Cash Zarate on 11-03-2024 WBC (Bld) [#/Vol] 9.3 10*3/uL 4.4-11.0 [facility] Absolute lymphocyte countOrd ered By: Michaela Sagastume on 11-02-2024 Lymphocytes Auto (Unsp spec) [#/Vol] 3.85 10*3/uL 0.83-4.51 [facility] Absolute neutrophil countOrd ered By: Michaela Sagastume on 11-02-2024 Neutrophils (Bld) [#/Vol] 3.4 10*3/uL 2.0-7.7 [facility] Anion gap in Serum or Plasma Ordered By: Michaela Sagastume on 11-02-2024 Anion gap [Moles/Vol] 18 mmol/L High 5-15 [facility] Ankle min 3 Viewson 11-03-19 25 Ankle min 3 Views Normal [facility] Automated lymphocyte count a s percentage of total leukocytesOrdered By: Michaela Sagastume on 11-02-2024 Lymphocytes/100 WBC Auto (Unsp spec) 45.3 % High 19-41 [facility] BUN/creatinine ratioOrdered By: Michaela Sagastume on 11-02-2024 Urea nitrogen/Creatinine [Mass ratio] 16.9 mg/mg 10-20 [facility] Basophil percentageOrdered B y: Michaela Tanika on 11-02-2024 Basophils/100 WBC (Bld) 1.4 % High 0-1 [facility] Bilirubin, totalOrdered By: Michaela Sagastume on 11-02-2024 Bilirubin [Mass/Vol] 0.70 mg/dL 0.00-1.30 [facility] Brain/Head without Contrasto n 11-02-2024 Brain/Head without Contrast Normal [facility] CBC W/Diff, Automatedon Anisocytosis Ql (Bld) 1+ Normal [facility] Comment on above: Performed By: #### L 300.3900, L100.0100 ####[facility] [address] [place], [place], [phone] PLT EST A Normal ADEQ [facility] Comment on above: Performed By: #### L 300.3900, L100.0100 ####[facility] [address] [place], [place], [phone] CT Chest, Abd, Pel w/Contras ton 11-02-2024 CT Chest, Abd, Pel w/Contrast Normal [facility] CTA Neck W/WO Contraston CTA Neck W/WO Contrast Normal [facility] Carbon dioxide, total [Moles /volume] in Central venous bloodOrdered By: Michaela Sagastume on 11-02-2024 CO2 [Moles/Vol] 20.3 mmol/L Low 21.0-32.0 [facility] Chloride assayOrdered By: Flaca Sagastume on 11-02-2024 Chloride [Moles/Vol] 102 mmol/L 98-108 [facility] Comprehensive Metabolic Prof ilon 11-02-2024 Albumin [Mass/Vol] 3.9 g/dL Normal 3.4-4.8 [facility] Comment on above: Performed By: #### L 501.2450, L500.4050 ####[facility] [address] [place], [address] Albumin/Globulin [Mass ratio] 1.1 {ratio} Normal 0.9-2.4 [facility] Comment on above: Performed By: #### L 501.2450, L500.4050 ####[facility] [address] [place], [address] ALK PHOS 82 U/L Normal 35-104 [facility] Comment on above: Performed By: #### L 501.2450, L500.4050 ####[facility] [address] [place], [address] ALT [Catalytic activity/Vol] 10 U/L Normal <=34 [facility] Comment on above: Performed By: #### L 501.2450, L500.4050 ####[facility] [address] [place], [address] AST [Catalytic activity/Vol] 39 U/L High <=31 [facility] Comment on above: Performed By: #### L 501.2450, L500.4050 ####[facility] [address] [place], [address] Bilirubin [Mass/Vol] 0.70 mg/dL Normal 0.00-1.30 [facility] Comment on above: Performed By: #### L 501.2450, L500.4050 ####[facility] [address] [place], [address] BUN/CRE 16.9 RATIO Normal 10-20 [facility] Comment on above: Performed By: #### L 501.2450, L500.4050 ####[facility] [address] [place], [address] Calcium [Mass/Vol] 9.4 mg/dL Normal 7.6-11.0 [facility] Comment on above: Performed By: #### L 501.2450, L500.4050 ####[facility] [address] [place], [address] Chloride [Moles/Vol] 102 mmol/L Normal 98-108 [facility] Comment on above: Performed By: #### L 501.2450, L500.4050 ####[facility] [address] [place], [address] CO2 [Moles/Vol] 20.3 mmol/L Low 21.0-32.0 [facility] Comment on above: Performed By: #### L 501.2450, L500.4050 ####[facility] [address] [place], [address] Creatinine [Mass/Vol] 1.14 mg/dL Normal 0.70-1.20 [facility] Comment on above: Performed By: #### L 501.2450, L500.4050 ####[facility] [address] [place], [address] ECRCL 39.28 ml/min Low 50-250 [facility] Comment on above: Performed By: #### L 501.2450, L500.4050 ####[facility] [address] [place], [address] GAP 18 High 5-15 [facility] Comment on above: Performed By: #### L 501.2450, L500.4050 ####[facility] [address] [place], [address] GFR/1.73 sq M.predicted among non-blacks MDRD (S/P/Bld) [Vol rate/Area] 49 mL/min/{1.73_m2} Low >60 [facility] Comment on above: Result Comment: mL/m in/1.73m2 CKD-EPI Creatinine Equation (2020) Performed By: #### L 501.2450, L500.4050 ####[facility] [address] [place], [address] Globulin (S) [Mass/Vol] 3.4 g/dL Normal 2.2-4.2 [facility] Comment on above: Performed By: #### L 501.2450, L500.4050 ####[facility] [address] [place], [address] Glucose [Mass/Vol] 132 mg/dL High 70-99 [facility] Comment on above: Performed By: #### L 501.2450, L500.4050 ####[facility] [address] [place], [address] Potassium [Moles/Vol] 3.7 mmol/L Normal 3.3-5.1 [facility] Comment on above: Performed By: #### L 501.2450, L500.4050 ####[facility] [address] [place], [address] Sodium [Moles/Vol] 140 mmol/L Normal 133-145 [facility] Comment on above: Performed By: #### L 501.2450, L500.4050 ####[facility] [address] [place], [address] T PROT 7.3 g/dL Normal 5.9-8.4 [facility] Comment on above: Performed By: #### L 501.2450, L500.4050 ####[facility] [address] [place], [address] Urea nitrogen [Mass/Vol] 19 mg/dL Normal 4-19 [facility] Comment on above: Performed By: #### L 501.2450, L500.4050 ####[facility] [address] [place], [address] Eosinophil percentageOrdered By: Michaela Sagastume on 11-02-2024 Eosinophils/100 WBC (Bld) 3.6 % 0-5 [facility] Erythrocyte distribution wid th ratioOrdered By: Michaela Sagastume on 11-02-2024 Erythrocyte distribution width (RBC) [Ratio] 20.0 % High 11.6-14.6 [facility] Erythrocyte distribution wid th standard deviationOrdered By: Michaela Sagastume on 11-02-2024 Erythrocyte distribution width (RBC) [Ratio] 73.7 fl High 35.1-43.9 [facility] Glomerular filtration rate ( GFR) estimation/1.73 sq m using serum, plasma, or whole bOrdered By: Michaela Sagastume on 11-02-2024 GFR/1.73 sq M.predicted among non-blacks MDRD (S/P/Bld) [Vol rate/Area] 49 mL/min/{1.73_m2} Low >60 [facility] Comment on above: mL/min/1.73m2 CKD-EP I Creatinine Equation (2020) Hematocrit Auto (Bld) [Volum e fraction]Ordered By: Michaela Sagastume on 11-02-2024 Hematocrit (Bld) [Volume fraction] 31.5 % Low 37-47 [facility] Hemoglobin measurementOrdere d By: Michaela Sagastume on 11-02-2024 Hemoglobin (Bld) [Mass/Vol] 10.1 g/dL Low 12.0-15.0 [facility] Immature granulocytes/100 WB C Auto (Bld)Ordered By: Michaela Sagastume on 11-02-2024 Immature granulocytes/100 WBC (Bld) 1.200 % High 0.0-0.9 [facility] Comment on above: IG% - Immature Granu locytes (promyelocytes, myelocytes and metamyelocytes) > 1% indicates that a LEFT SHIFT is Present. International normalized rat io (INR) calculationOrdered By: Michaela Sagastume on 11-02-2024 INR Coag (Bld) [Relative time] 2.6 {INR} [facility] Knee 4 or More Viewson 11-02 Knee 4 or More Views Normal [facility] Knee 4 or More Views Normal [facility] Laboratory - Chemistry and C hemistry - challengeOrdered By: Michaela Sagastume on 11-02-2024 AST [Catalytic activity/Vol] 39 U/L High <32 [facility] Laboratory - Hematology and Cell countsOrdered By: Michaela Sagastume on 11-02-2024 Anisocytosis Ql (Bld) 1+ [facility] Lipaseon 11-02-2024 Lipase [Catalytic activity/Vol] 77 U/L High 13-75 [facility] Comment on above: Result Comment: Philippe cruz note:LIPASE revised reference range effective 22.New Lipase methodology. Expected to produce lower valuesthan the previous assay method.NEW Reference Range: 13 - 75 U/L Performed By: #### L 501.2450, L500.4050 ####[facility] [address] [place], [address] Lipase measurementOrdered By : Michaela Sagastume on 11-02-2024 Lipase [Catalytic activity/Vol] 77 U/L High 13-75 [facility] Comment on above: Please note:LIPASE r evised reference range effective 22. New Lipase methodology. Expected to produce lower values than the previous assay method. NEW Reference Range: 13 - 75 U/L MCV (mean corpuscular volume ) determinationOrdered By: Michaela Sagastume on 11-02-2024 MCV (RBC) [Entitic vol] 99.7 fL High 81-99 [facility] Mean corpuscular hemoglobin (MCH) determinationOrdered By: Michaela Sagastume on 11-02-2024 MCH (RBC) [Entitic mass] 32.0 pg 27.0-32.0 [facility] Mean corpuscular hemoglobin concentration (MCHC) determinationOrdered By: Michaela Sagastume on 11-02-2024 MCHC (RBC) [Mass/Vol] 32.1 g/dL 32-36 [facility] Mean platelet volume determi nationOrdered By: Michaela Sagastume on 11-02-2024 Platelet mean volume (Bld) [Entitic vol] 11.2 fL 6.2-12.0 [facility] Monocyte percentageOrdered B y: Michaela Sagastume on 11-02-2024 Monocytes/100 WBC (Bld) 8.4 % 0-10 [facility] Neutrophil percentageOrdered By: Michaela Sagastume on 11-02-2024 Neutrophils/100 WBC (Bld) 40.1 % Low 47-70 [facility] Nucleated red blood cell per centageOrdered By: Michaela Sagastume on 11-02-2024 Nucleated RBC/100 WBC (Bld) [Ratio] 0.9 % 0-5 [facility] Platelet countOrdered By: Flaca Sagastume on 11-02-2024 Platelets (Bld) [#/Vol] 253 10*3/uL 150-450 [facility] Platelet estimateOrdered By: Michaela Sagastume on 11-02-2024 Platelets LM Ql (Bld) A ADEQ [facility] Potassium measurement (mass/ volume)Ordered By: Michaela Sagastume on 11-02-2024 Potassium (Unsp spec) [Mass/Vol] 3.7 mmol/L 3.3-5.1 [facility] Prothrombin Time w/INRon INR Coag (PPP) [Relative time] 2.6 {INR} Normal [facility] Comment on above: Performed By: #### L 300.3900, L100.0100 ####[facility] [address] [place], [address] PT Coag (PPP) [Time] 28.6 s High 11.7-14.9 [facility] Comment on above: Performed By: #### L 300.3900, L100.0100 ####[facility] [address] [place], [address] Prothrombin timeOrdered By: Michaela Sagastume on 11-02-2024 PT Coag (PPP) [Time] 28.6 s High 11.7-14.9 [facility] RBC Auto (Bld) [#/Vol]Ordere d By: Michaela Sagastume on 11-02-2024 RBC (Bld) [#/Vol] 3.16 10*6/uL Low 4.2-5.4 [facility] Serum creatinine measurement (mass/volume)Ordered By: Michaela Sagastume on 11-02-2024 Creatinine [Mass/Vol] 1.14 mg/dL 0.70-1.20 [facility] Serum globulin measurementOr dered By: Michaela Sagastume on 11-02-2024 Globulin (S) [Mass/Vol] 3.4 g/dL 2.2-4.2 [facility] Serum glucose measurement (m ass/volume)Ordered By: Michaela Sagastume on 11-02-2024 Glucose [Mass/Vol] 132 mg/dL High 70-99 [facility] Serum or plasma alanine gonzalez otransferase (ALT) measurementOrdered By: Michaela Sagastume on 11-02-2024 ALT [Catalytic activity/Vol] 10 U/L <35 [facility] Serum or plasma albumin darlene urement (mass/volume)Ordered By: Michaela Sagastume on 11-02-2024 Albumin [Mass/Vol] 3.9 g/dL 3.4-4.8 [facility] Serum or plasma albumin/glob ulin mass ratioOrdered By: Michaela Sagastume on 11-02-2024 Albumin/Globulin [Mass ratio] 1.1 {ratio} 0.9-2.4 [facility] Serum or plasma alkaline millie sphatase measurementOrdered By: Michaela Sagastume on 11-02-2024 ALP [Catalytic activity/Vol] 82 U/L 35-104 [facility] Serum or plasma calcium darlene urement (mass/volume)Ordered By: Michaela Sagastume on 11-02-2024 Calcium [Mass/Vol] 9.4 mg/dL 7.6-11.0 [facility] Serum or plasma urea nitroge n measurement (mass/volume)Ordered By: Michaela Sagastume on 11-02-2024 Urea nitrogen [Mass/Vol] 19 mg/dL 4-19 [facility] Shoulder min 2 Viewson 11-02 Shoulder min 2 Views Normal [facility] Sinus/Facial Boneon 11-03-19 25 Sinus/Facial Bone Normal [facility] Sodium levelOrdered By: Michaela Sagastume on 11-02-2024 Sodium [Moles/Vol] 140 mmol/L 133-145 [facility] Spine Cervical without Contr ason 11-02-2024 Spine Cervical without Contras Normal [facility] Tibia Fibula 2 Viewson 11-02 Tibia Fibula 2 Views Normal [facility] Total proteinOrdered By: Desirae lazaro Tanika on 11-02-2024 Protein [Mass/Vol] 7.3 g/dL 5.9-8.4 [facility] White blood cell (WBC) count Ordered By: Michaela Tanika on 11-02-2024 WBC (Bld) [#/Vol] 8.5 10*3/uL 4.4-11.0 [facility] International normalized rat io (INR) calculationOrdered By: Anupam Lizarraga on 10-05-2024 INR Coag (Bld) [Relative time] 2.2 {INR} [facility] Prothrombin Time w/INRon INR Coag (PPP) [Relative time] 2.2 {INR} Normal [facility] Comment on above: Performed By: #### L 300.3900 ####[facility] [address] [place], [place], [phone] PT Coag (PPP) [Time] 24.9 s High 11.7-14.9 [facility] Comment on above: Performed By: #### L 300.3900 ####[facility] [address] [place], [place], [phone] Prothrombin timeOrdered By: Anupam Lizarraga on 10-05-2024 PT Coag (PPP) [Time] 24.9 s High 11.7-14.9 [facility] International normalized rat io (INR) calculationOrdered By: Anupam Lizarraga on 09-14-2024 INR Coag (Bld) [Relative time] 2.3 {INR} [facility] Prothrombin Time w/INRon INR Coag (PPP) [Relative time] 2.3 {INR} Normal [facility] Comment on above: Performed By: #### L 300.3900 ####[facility] [address] [place], [place], [phone] PT Coag (PPP) [Time] 25.4 s High 11.7-14.9 [facility] Comment on above: Performed By: #### L 300.3900 ####[facility] [address] [place], [address] Prothrombin timeOrdered By: Anupam Lizarraga on 09-14-2024 PT Coag (PPP) [Time] 25.4 s High 11.7-14.9 [facility] Cardiology Visit Reporton Cardiology Visit Report Normal [facility] Pacemaker Checkon 08-30-2024 Pacemaker Check Normal [facility] Prothrombin Time w/INRon INR Coag (PPP) [Relative time] 1.8 {INR} Normal [facility] Comment on above: Performed By: #### L 300.3900 ####[facility] [address] [place], [address] PT Coag (PPP) [Time] 21.4 s High 11.7-14.9 [facility] Comment on above: Performed By: #### L 300.3900 ####[facility] [address] [place], [address] Culture, Anaerobic Any Sourc renita 08-21-2024 CUAN Normal [facility] Comment on above: Performed By: #### M 100.2000, M100.3000, M100.4001 ####[facility] [address] [place], [address] Wound Cultureon 08-21-2024 WC List Antibiotics Las t 48 Hours? Cefrouxin, Doxycycline List Antibiotics to be Started? None No growth aerobically. Normal [facility] Comment on above: Performed By: #### M 100.2000, M100.3000, M100.4001 ####[facility] [address] [place], [address] Gram Stainon 08-18-2024 GS List Antibiotics Las t 48 Hours? Cefrouxin, Doxycycline List Antibiotics to be Started? None Gram Stain Rare Gram positive cocci Rare White Blood Cells No Epithelial cells Normal [facility] Comment on above: Performed By: #### M 100.2000, M100.3000, M100.4001 ####[facility] [address] [facility], [address] Anaerobic cultureOrdered By: Zarina Fish on 08-17-2024 Bacteria identified Anaer cx Nom (Unsp spec) Anaerobic cocci Abnormal [facility] Bacteria identified Anaer cx Nom (Unsp spec)Ordered By: Zarina Fish on 08-17-2024 Anaerobic Culture Anaerobic cocci Abnormal [facility] Gram stainOrdered By: Prisca Fish on 08-17-2024 Microscopic observation Gram stain Nom (Unsp spec) [facility] International normalized rat io (INR) calculationOrdered By: Anupam Zia on 08-17-2024 INR Coag (Bld) [Relative time] 3.1 {INR} [facility] Prothrombin Time w/INRon INR Coag (PPP) [Relative time] 3.1 {INR} Normal [facility] Comment on above: Performed By: #### L 300.3900 ####[facility] [address] [place], [address] PT Coag (PPP) [Time] 32.7 s High 11.7-14.9 [facility] Comment on above: Performed By: #### L 300.3900 ####[facility] [address] [facility] [place], [address] Prothrombin timeOrdered By: Anupam Zia on 08-17-2024 PT Coag (PPP) [Time] 32.7 s High 11.7-14.9 [facility] Routine wound cultureOrdered By: Zarina Fish on 08-17-2024 Wound Culture No growth aerobically. [facility] International normalized rat io (INR) calculationOrdered By: Anupam Zia on 07-27-2024 INR Coag (Bld) [Relative time] 2.2 {INR} [facility] Prothrombin Time w/INRon INR Coag (PPP) [Relative time] 2.2 {INR} Normal [facility] Comment on above: Performed By: #### L 300.3900 ####[facility] [address] [place], [address] PT Coag (PPP) [Time] 24.8 s High 11.7-14.9 [facility] Comment on above: Performed By: #### L 300.3900 ####[facility] [address] [place], [address] Prothrombin timeOrdered By: Anupam Lizarraga on 07-27-2024 PT Coag (PPP) [Time] 24.8 s High 11.7-14.9 [facility] Consultation - Infectious Dx on 07-12-2024 Consultation - Infectious Dx Normal [facility] Prothrombin Time w/INRon INR Coag (PPP) [Relative time] 2.1 {INR} Normal [facility] Comment on above: Performed By: #### L 300.3900 ####[facility] [address] [place], [address] PT Coag (PPP) [Time] 24.0 s High 11.7-14.9 [facility] Comment on above: Performed By: #### L 300.3900 ####[facility] [address] [place], [address] Prothrombin Time w/INRon INR Coag (PPP) [Relative time] 1.5 {INR} Normal [facility] Comment on above: Performed By: #### L 300.3900 ####[facility] [address] [place], [address] PT Coag (PPP) [Time] 18.4 s High 11.7-14.9 [facility] Comment on above: Performed By: #### L 300.3900 ####[facility] [address] [place], [address] International normalized rat io (INR) calculationOrdered By: Anupam Lizarraga on 06-30-2024 INR Coag (Bld) [Relative time] 1.5 {INR} [facility] L3410.9999on 06-30-2024 [facility] Normal . [facility] Comment on above: Order Comment: [id number] 1WOUND CULTURE Result Comment: Test Ordered: [id number] Anaerobic/Aerobic/Gram StainAnaerobic Culture Note: [A ] CB [...] number of gram positive cocci.Performed at: - [facility] [id number] [place] [id number] Director: Shoaib Ellis PhD, Phone: [phone] Performed By: #### L 8253.7985 ####[facility] [address] [place], [place], [address] Prothrombin Time w/INRon INR Coag (PPP) [Relative time] 1.5 {INR} Normal [facility] Comment on above: Performed By: #### L 105.3588 ####[facility] [address] [place], [place], [address] PT Coag (PPP) [Time] 18.1 s High 11.7-14.9 [facility] Comment on above: Performed By: #### L 300.3900 ####[facility] [address] [place], [place], [id number] Prothrombin timeOrdered By: Anupam Lizarraga on 06-30-2024 PT Coag (PPP) [Time] 18.1 s High 11.7-14.9 [facility] No Panel InformationOrdered By: Zarina Fish on 06-22-2024 Miscellaneous Test COMMENT . [facility] Comment on above: Test Ordered: [id number] Anaerobic/Aerobic/Gram StainAnaerobic Culture Note: [A ] CB [...] number of gram positive cocci.Performed at: - [facility] [id number] Director: Shoaib Ellis PhD, Phone: [phone] Extremity Lower without Cont raon 06-08-2024 Extremity Lower without Contra Normal [facility] Prothrombin Time w/INRon INR Coag (PPP) [Relative time] 2.4 {INR} Normal [facility] Comment on above: Order Comment: Comme nts: STANDING ORDER Performed By: #### L 300.3900 ####[facility] [address] [place], [address] PT Coag (PPP) [Time] 26.3 s High 11.7-14.9 [facility] Comment on above: Order Comment: Comme nts: STANDING ORDER Performed By: #### L 300.3900 ####[facility] [address], [address] Absolute neutrophil countOrd ered By: Zarina Fish on 06-01-2024 Neutrophils (Bld) [#/Vol] 3.2 10*3/uL 2.0-7.7 [facility] Ankle 2 Viewson 06-01-2024 Ankle 2 Views Normal [facility] Basic Metabolic Profile (BMP )on 06-01-2024 BUN/CRE 28.0 RATIO High 10-20 [facility] Comment on above: Performed By: #### L 501.1400, L500.2500, L100.0100 ####[facility] [address] [place], [address] CA,Total 9.8 mg/dL Normal 8.5-10.1 [facility] Comment on above: Performed By: #### L 501.1400, L500.2500, L100.0100 ####[facility] [address] [place], [address] Chloride [Moles/Vol] 107 mmol/L Normal 98-107 [facility] Comment on above: Performed By: #### L 501.1400, L500.2500, L100.0100 ####[facility] [address] [place], [address] CO2 [Moles/Vol] 28.0 mmol/L Normal 21.0-32.0 [facility] Comment on above: Performed By: #### L 501.1400, L500.2500, L100.0100 ####[facility] [address] [place], [address] Creatinine [Mass/Vol] 0.96 mg/dL Normal 0.55-1.02 [facility] Comment on above: Result Comment: The validity of the calculated GFR GFRAA in patients over70 years has not been determined. Clinical correlation isessential. Performed By: #### L 501.1400, L500.2500, L100.0100 ####[facility] [address] [place], [address] EST GFR - AA 72 mL/min Normal >60 [facility] Comment on above: Result Comment: Afri can Vincentian GFR Calc Performed By: #### L 501.1400, L500.2500, L100.0100 ####[facility] [address] [place], [address] GAP 5 Normal 5-15 [facility] Comment on above: Performed By: #### L 501.1400, L500.2500, L100.0100 ####[facility] [address] [place], [address] GFR/1.73 sq M.predicted among non-blacks MDRD (S/P/Bld) [Vol rate/Area] 60 mL/min/{1.73_m2} Normal >60 [facility] Comment on above: Result Comment: Non- GFR Calc Performed By: #### L 501.1400, L500.2500, L100.0100 ####[facility] [address] [place], [address] Glucose [Mass/Vol] 99 mg/dL Normal 74-106 [facility] Comment on above: Performed By: #### L 501.1400, L500.2500, L100.0100 ####[facility] [address] [place], [address] Potassium [Moles/Vol] 4.2 mmol/L Normal 3.5-5.1 [facility] Comment on above: Performed By: #### L 501.1400, L500.2500, L100.0100 ####[facility] [address] [place], [address] Sodium [Moles/Vol] 140 mmol/L Normal 136-145 [facility] Comment on above: Performed By: #### L 501.1400, L500.2500, L100.0100 ####[facility] [address] [place], [address] Urea nitrogen [Mass/Vol] 27 mg/dL High 7-18 [facility] Comment on above: Performed By: #### L 501.1400, L500.2500, L100.0100 ####[facility] [address] [place], [address] Basophil percentageOrdered B y: Zarina Fish on 06-01-2024 Basophils/100 WBC (Bld) 0.9 % 0-1 [facility] Blood urea nitrogen (BUN)/cr eatinine ratioOrdered By: Zarina Fish on 06-01-2024 Urea nitrogen/Creatinine [Mass ratio] 28.0 mg/mg High 10-20 [facility] CBC W/Diff, Automatedon Anisocytosis Ql (Bld) 2+ Normal [facility] Comment on above: Performed By: #### L 501.1400, L500.2500, L100.0100 ####[facility] [address] [place], [address] HYPOCHROMASIA RARE Normal [facility] Comment on above: Performed By: #### L 501.1400, L500.2500, L100.0100 ####[facility] [address] [place], [address] MACROCYTOSIS 2+ Normal [facility] Comment on above: Performed By: #### L 501.1400, L500.2500, L100.0100 ####[facility] [address] [place] [place], [address] PLT EST ADEQUATE Normal ADEQ [facility] Comment on above: Performed By: #### L 501.1400, L500.2500, L100.0100 ####[facility] [address] [place], [address] RED CELL MORPH N CHROM Normal NORM C C [facility] Comment on above: Performed By: #### L 501.1400, L500.2500, L100.0100 ####[facility] [address] [place], [address] Carbon dioxide measurementOr dered By: Zarina Fish on 06-01-2024 CO2 [Moles/Vol] 28.0 mmol/L 21.0-32.0 [facility] Chloride measurementOrdered By: Zarina Fish on 06-01-2024 Chloride [Moles/Vol] 107 mmol/L 98-107 [facility] Eosinophil percentageOrdered By: Zarina Fish on 06-01-2024 Eosinophils/100 WBC (Bld) 5.0 % 0-5 [facility] Erythrocyte distribution wid th ratioOrdered By: Zarina Fish on 06-01-2024 Erythrocyte distribution width (RBC) [Ratio] 20.6 % High 11.6-14.6 [facility] Erythrocyte distribution wid th standard deviationOrdered By: Zarina Fish on 06-01-2024 Erythrocyte distribution width (RBC) [Entitic vol] 74.4 fL High 35.1-43.9 [facility] Estimated glomerular filtrat ion rate (GFR) AmericanOrdered By: Zarina Fish on 06-01-2024 Estimated GFR (MDRD) Amer 72 mL/min >60 [facility] Comment on above: GFR Calc Glomerular filtration rate ( GFR) estimationOrdered By: Zarina Fish on 06-01-2024 Estimated GFR (MDRD) Non-Af Amer 60 mL/min >60 [facility] Comment on above: Non- GFR Calc Glucose measurementOrdered B y: Zarina Fish on 06-01-2024 Glucose [Mass/Vol] 99 mg/dL 74-106 [facility] Hematocrit Auto (Bld) [Volum e fraction]Ordered By: Zarina Fish on 06-01-2024 Hematocrit (Bld) [Volume fraction] 32.1 % Low 37-47 [facility] Hemoglobin measurementOrdere d By: Zarina Fish on 06-01-2024 Hemoglobin (Bld) [Mass/Vol] 10.0 g/dL Low 12.0-15.0 [facility] Hypochromia Ql (Bld)Ordered By: Zarina Fish on 06-01-2024 Hypochromasia RARE [facility] Immature granulocytes/100 WB C Auto (Bld)Ordered By: Zarina Fish on 06-01-2024 Immature granulocytes/100 WBC (Bld) 0.300 % 0.0-0.9 [facility] Comment on above: IG% - Immature Granu locytes (promyelocytes, myelocytes and metamyelocytes) > 1% indicates that a LEFT SHIFT is Present. Laboratory - Hematology and Cell countsOrdered By: Zarina Fish on 06-01-2024 Anisocytosis Ql (Bld) 2+ [facility] Lymphocytes Auto (Unsp spec) [#/Vol]Ordered By: Zarina Fish on 06-01-2024 Lymphocytes (Bld) [#/Vol] 1.70 10*3/uL 0.83-4.51 [facility] Lymphocytes/100 WBC Auto (Un sp spec)Ordered By: Zarina Fish on 06-01-2024 Lymphocytes/100 WBC (Bld) 29.3 % 19-41 [facility] MCV (mean corpuscular volume ) determinationOrdered By: Zarina Fish on 06-01-2024 MCV (RBC) [Entitic vol] 98.5 fL 81-99 [facility] Macrocytes Ql (Bld)Ordered B y: Zarina Fish on 06-01-2024 Macrocytosis 2+ [facility] Mean corpuscular hemoglobin (MCH) determinationOrdered By: Zarina Fish on 06-01-2024 MCH (RBC) [Entitic mass] 30.7 pg 27.0-32.0 [facility] Mean corpuscular hemoglobin concentration (MCHC) determinationOrdered By: Zarina Fish on 06-01-2024 MCHC (RBC) [Mass/Vol] 31.2 g/dL Low 32-36 [facility] Mean platelet volume determi nationOrdered By: Zarina Fish on 06-01-2024 Platelet mean volume (Bld) [Entitic vol] 10.5 fL 6.2-12.0 [facility] Monocyte percentageOrdered B y: Zarina Fish on 06-01-2024 Monocytes/100 WBC (Bld) 9.6 % 0-10 [facility] Neutrophil percentageOrdered By: Zarina Fish on 06-01-2024 Neutrophils/100 WBC (Bld) 54.9 % 47-70 [facility] Nucleated red blood cell per centageOrdered By: Zarina Fish on 06-01-2024 Nucleated RBC/100 WBC (Bld) [Ratio] 0 % 0-5 [facility] Platelet countOrdered By: Georges Fish on 06-01-2024 Platelets (Bld) [#/Vol] 222 10*3/uL 150-450 [facility] Platelets LM Ql (Bld)Ordered By: Zarina Fish on 06-01-2024 Platelet Estimate ADEQUATE ADEQ [facility] Potassium measurementOrdered By: Zarina Fish on 06-01-2024 Potassium [Moles/Vol] 4.2 mmol/L 3.5-5.1 [facility] RBC Auto (Bld) [#/Vol]Ordere d By: Zarina Fish on 06-01-2024 RBC (Bld) [#/Vol] 3.26 10*6/uL Low 4.2-5.4 [facility] RBC morphology finding Nom ( Bld)Ordered By: Zarina Fish on 06-01-2024 Red Blood Cell Morphology N CHROM NORMAL NORM C&C [facility] Serum anion gap measurementO rdered By: Zarina Fish on 06-01-2024 Anion gap [Moles/Vol] 5 mmol/L 5-15 [facility] Serum or plasma calcium darlene urement (mass/volume)Ordered By: Zarina Fish on 06-01-2024 Calcium [Mass/Vol] 9.8 mg/dL 8.5-10.1 [facility] Serum or plasma creatinine m easurement (mass/volume)Ordered By: Zarina Fish on 06-01-2024 Creatinine [Mass/Vol] 0.96 mg/dL 0.55-1.02 [facility] Comment on above: The validity of the calculated GFR & GFRAA in patients over 70 years has not been determined. Clinical correlation is essential. Serum or plasma urea nitroge n measurement (mass/volume)Ordered By: Zarina Fish on 06-01-2024 Urea nitrogen [Mass/Vol] 27 mg/dL High 7-18 [facility] Serum or plasma uric acid me asurement (mass/volume)Ordered By: Zarina Fish on 06-01-2024 Urate [Mass/Vol] 3.8 mg/dL 2.6-6.0 [facility] Comment on above: The drugs N-Acetylcy steine and Metamizole may falsely depress this assay. Sodium levelOrdered By: Enrico Fish on 06-01-2024 Sodium [Moles/Vol] 140 mmol/L 136-145 [facility] Tibia Fibula 2 Viewson 06-01 Tibia Fibula 2 Views Normal [facility] Uric Acidon 06-01-2024 URIC 3.8 mg/dL Normal 2.6-6.0 [facility] Comment on above: Result Comment: The drugs N-Acetylcysteine and Metamizole may falselydepress this assay. Performed By: #### L 501.1400, L500.2500, L100.0100 ####[facility] [address] [place], [place], [id number] White blood cell (WBC) count Ordered By: Zarina Fish on 06-01-2024 WBC (Bld) [#/Vol] 5.8 10*3/uL 4.4-11.0 [facility] Wound Cultureon 05-25-2024 WC Normal [facility] Comment on above: Performed By: #### M 100.4001, M100.2000, M100.3000 ####[facility] [address] [place], [address] International normalized rat io (INR) calculationOrdered By: Anupam Lizarraga on 05-18-2024 INR Coag (Bld) [Relative time] 1.7 {INR} [facility] Prothrombin Time w/INRon INR Coag (PPP) [Relative time] 1.7 {INR} [facility] Comment on above: Performed By: #### L 300.3900 ####[facility] [address] [place], [address] PT Coag (PPP) [Time] 19.9 s High 11.7-14.9 [facility] Comment on above: Performed By: #### L 300.3900 ####[facility] [address] [place], [address] Prothrombin timeOrdered By: Anupam Lizarraga on 05-18-2024 PT Coag (PPP) [Time] 19.9 s High 11.7-14.9 [facility] Culture, Anaerobic Any Sourc renita 05-16-2024 CUAN [facility] Comment on above: Performed By: #### M 100.4001, M100.2000, M100.3000 ####[facility] [address] [place], [address] Culture, Anaerobic Any Sourc renita 05-15-2024 CUAN List Antibiotics Las t 48 Hours? none List Antibiotics to be Started? none No anaerobic bacteria isolated. [facility] Comment on above: Performed By: #### M 100.2000, M100.3000, M100.4001 ####[facility] [address], [address] Wound Cultureon 05-15-2024 [facility] Comment on above: Performed By: #### M 100.2000, M100.3000, M100.4001 ####[facility] [address] [place], [address] Gram Stainon 05-14-2024 GS List Antibiotics Las t 48 Hours? none List Antibiotics to be Started? none Gram Stain No organisms seen No cells seen Normal [facility] Comment on above: Performed By: #### M 100.2000, M100.3000, M100.4001 ####[facility] [address] [place], [address] Bacteria identified Anaer cx Nom (Unsp spec)Ordered By: Zarina Fish on 05-11-2024 Anaerobic Culture No anaerobic bacteri a isolated. [facility] Gram stainOrdered By: Prisca Fish on 05-11-2024 Microscopic observation Gram stain Nom (Unsp spec) [facility] Routine wound cultureOrdered By: Zarina Fish on 05-11-2024 Wound Culture Streptococcus pseudoporcinus Abnormal [facility] Wound Culture Staphylococcus epidermidis Abnormal [facility] Gram Stainon 05-05-2024 GS List Antibiotics Las t 48 Hours? none List Antibiotics to be Started? none Gram Stain 1+ Red Blood Cells Rare Gram positive cocci No Epithelial cells Normal [facility] Comment on above: Performed By: #### M 100.4001, M100.2000, M100.3000 ####[facility] [address] [place], [address] Bacteria identified Anaer cx Nom (Unsp spec)Ordered By: Zarina Fish on 05-04-2024 Anaerobic Culture Anaerobic cocci Abnormal [facility] Gram stainOrdered By: Prisca Fish on 05-04-2024 Microscopic observation Gram stain Nom (Unsp spec) [facility] Routine wound cultureOrdered By: Zarina Fish on 05-04-2024 Wound Culture Dermabacter hominis Abnormal [facility] Carotid Duplex Ultrasoundon 05-02-2024 Carotid Duplex Ultrasound Normal [facility] Venous Duplex US - Vishnu Extre mon 05-02-2024 Venous Duplex US - Vishnu Extrem Normal [facility] Prothrombin Time w/INRon INR Coag (PPP) [Relative time] 2.3 {INR} Normal [facility] Comment on above: Performed By: #### L 300.3900 ####[facility] [address] [place], [address] PT Coag (PPP) [Time] 24.9 s High 11.7-14.9 [facility] Comment on above: Performed By: #### L 300.3900 ####[facility] [address] [place], [address] Prothrombin Time w/INRon INR Coag (PPP) [Relative time] 1.9 {INR} Normal [facility] Comment on above: Performed By: #### L 300.3900 ####[facility] [address] [place], [address] PT Coag (PPP) [Time] 21.7 s High 11.7-14.9 [facility] Comment on above: Performed By: #### L 300.3900 ####[facility] [address] [place], [address] Wound Ctr History AND Physic diogenes 03-30-2024 Wound Ctr History & Physical Normal [facility] Culture, Anaerobic Any Sourc renita 03-25-2024 CUAN AEROBIC SWAB ONLY SUBMITTED. GROWTH OF ANAEROBES MAY BE INHIBITED. Susceptibility not normally performed on this organism. Patrice oconnelli Normal [facility] Comment on above: Performed By: #### M 100.4001, M100.2000, M100.3000 ####[facility] [address] [place], [address] Prothrombin Time w/INRon INR Coag (PPP) [Relative time] 2.0 {INR} Normal [facility] Comment on above: Performed By: #### L 300.3900 ####[facility] [address] [place], [address] PT Coag (PPP) [Time] 22.5 s High 11.7-14.9 [facility] Comment on above: Performed By: #### L 300.3900 ####[facility] [address] [place], [address] Wound Cultureon 03-22-2024 WC Normal [facility] Comment on above: Performed By: #### M 100.4001, M100.2000, M100.3000 ####[facility] [address] [place], [address] Gram Stainon 03-20-2024 GS AEROBIC SWAB ONLY SUBMITTED. GROWTH OF ANAEROBES MAY BE INHIBITED. Gram Stain 2+ Gram positive cocci 2+ Gram negative rods 1+ Gram positive rods Normal [facility] Comment on above: Performed By: #### M 100.4001, M1.1999, M100.3000 ####[facility] [address] [place], [address] Urgent Care Visit Reporton 1 Urgent Care Visit Report Normal [facility] Echo Completeon 03-06-2024 Echo Complete Normal [facility] BNP,B-Type NATRIURETIC PEPTI Patricia 02-23-2024 Natriuretic peptide B (Bld) [Mass/Vol] 363.8 pg/mL High 0-100 [facility] Comment on above: Performed By: #### L 503.6030, L503.6620, L100.0100 ####[facility] [address] [place], [address] CBC W/Diff, Automatedon 01-30 Anisocytosis Ql (Bld) 2+ Normal [facility] Comment on above: Performed By: #### L 503.6030, L503.6620, L100.0100 ####[facility] [address] [place], [address] SMEAR COMMENT SCANNED Normal [facility] Comment on above: Performed By: #### L 503.6030, L503.6620, L100.0100 ####[facility] [address] [place], [address] Cardiology Visit Reporton Cardiology Visit Report Normal [facility] Iron+Iron Binding Capacityon 02-23-2024 Iron [Mass/Vol] 92 ug/dL Normal 50-170 [facility] Comment on above: Performed By: #### L 503.6030, L503.6620, L100.0100 ####[facility] [address] [place], [address] IRON SATURATION 31.0 Normal 15.0-55.0 [facility] Comment on above: Performed By: #### L 503.6030, L503.6620, L100.0100 ####[facility] [address] [place], [address] TIBC 297 ug/dL Normal 250-450 [facility] Comment on above: Performed By: #### L 503.6030, L503.6620, L100.0100 ####[facility] [address] [place], [address] MR/BMS.BVSon 01-26-2024 MR/BMS.BVS Normal [facility] Basic Metabolic Profile (BMP )on 01-12-2024 BUN/CRE 20.6 RATIO High 10-20 [facility] Comment on above: Order Comment: 1Y Performed By: #### L 100.0100, L300.3900, L501.5425, L500.2500 ####[facility] [address] [place], [address] CA,Total 9.7 mg/dL Normal 8.5-10.1 [facility] Comment on above: Order Comment: 1Y Performed By: #### L 100.0100, L300.3900, L501.5425, L500.2500 ####[facility] [address] [place], [address] Chloride [Moles/Vol] 104 mmol/L Normal 98-107 [facility] Comment on above: Order Comment: 1Y Performed By: #### L 100.0100, L300.3900, L501.5425, L500.2500 ####[facility] [address] [place], [address] CO2 [Moles/Vol] 30.0 mmol/L Normal 21.0-32.0 [facility] Comment on above: Order Comment: 1Y Performed By: #### L 100.0100, L300.3900, L501.5425, L500.2500 ####[facility] [address] [place], [address] Creatinine [Mass/Vol] 1.36 mg/dL High 0.55-1.02 [facility] Comment on above: Order Comment: 1Y Result Comment: The validity of the calculated GFR GFRAA in patients over70 years has not been determined. Clinical correlation isessential. Performed By: #### L 100.0100, L300.3900, L501.5425, L500.2500 ####[facility] [address] [place], [address] ECRCL 30.00 ml/min Normal [facility] Comment on above: Order Comment: 1Y Performed By: #### L 100.0100, L300.3900, L501.5425, L500.2500 ####[facility] [address] [place], [address] EST GFR - AA 48 mL/min Low >60 [facility] Comment on above: Order Comment: 1Y Result Comment: Afri can Vincentian GFR Calc Performed By: #### L 100.0100, L300.3900, L501.5425, L500.2500 ####[facility] [address] [place], [address] GAP 6 Normal 5-15 [facility] Comment on above: Order Comment: 1Y Performed By: #### L 100.0100, L300.3900, L501.5425, L500.2500 ####[facility] [address] [place], [address] GFR/1.73 sq M.predicted among non-blacks MDRD (S/P/Bld) [Vol rate/Area] 40 mL/min/{1.73_m2} Low >60 [facility] Comment on above: Order Comment: 1Y Result Comment: Non- GFR Calc Performed By: #### L 100.0100, L300.3900, L501.5425, L500.2500 ####[facility] [address] [place], [address] Glucose [Mass/Vol] 122 mg/dL High 74-106 [facility] Comment on above: Order Comment: 1Y Result Comment: Fast ing Glucose result from 100 to 125 mg/dLsuggests IMPAIRED HOMEOSTASIS per A.D.A. criteria. Performed By: #### L 100.0100, L300.3900, L501.5425, L500.2500 ####[facility] [address] [place], [address] Potassium [Moles/Vol] 3.8 mmol/L Normal 3.5-5.1 [facility] Comment on above: Order Comment: 1Y Performed By: #### L 100.0100, L300.3900, L501.5425, L500.2500 ####[facility] [address] [place], [address] Sodium [Moles/Vol] 140 mmol/L Normal 136-145 [facility] Comment on above: Order Comment: 1Y Performed By: #### L 100.0100, L300.3900, L501.5425, L500.2500 ####[facility] [address] [place], [address] Urea nitrogen [Mass/Vol] 28 mg/dL High 7-18 [facility] Comment on above: Order Comment: 1Y Performed By: #### L 100.0100, L300.3900, L501.5425, L500.2500 ####[facility] [address] [place], [address] CBC W/Diff, Automatedon 12-29 Anisocytosis Ql (Bld) 1+ Normal [facility] Comment on above: Performed By: #### L 100.0100, L300.3900, L501.5425, L500.2500 ####[facility] [address] [place], [address] Chest 1 View (Portable)on Chest 1 View (Portable) Normal [facility] Emergency Department Summary on 01-12-2024 Emergency Department Summary Normal [facility] L501.4020on 01-12-2024 TROPONIN-I HS 10 pg/mL Normal 3.0-54.0 [facility] Comment on above: Result Comment: Plea se Note: New Test Units and Gender Specific Reference Ranges. For more information see Policy Stat Procedure [place] High Sensitivity Troponin (TNIH) and attachments. Performed By: #### L 501.4020 ####[facility] [address] [place], [address] L501.5425on 01-12-2024 TROPONIN-I HS 8 pg/mL Normal 3.0-54.0 [facility] Comment on above: Order Comment: 1Y Result Comment: Plea se Note: New Test Units and Gender Specific Reference Ranges. For more information see Policy Stat Procedure [place] High Sensitivity Troponin (TNIH) and attachments. Performed By: #### L 100.0100, L300.3900, L501.5425, L500.2500 ####[facility] [address] [place], [address] Prothrombin Time w/INRon INR Coag (PPP) [Relative time] 2.7 {INR} Normal [facility] Comment on above: Performed By: #### L 100.0100, L300.3900, L501.5425, L500.2500 ####[facility] [address] [place], [address] PT Coag (PPP) [Time] 28.9 s High 11.7-14.9 [facility] Comment on above: Performed By: #### L 100.0100, L300.3900, L501.5425, L500.2500 ####[facility] [address] [place], [address] Ribs Uni Min 3V w/PA Cheston 01-11-2024 Ribs Uni Min 3V w/PA Chest Normal [facility] Prothrombin Time w/INRon INR Coag (PPP) [Relative time] 2.0 {INR} Normal [facility] Comment on above: Performed By: #### L 300.3900 ####[facility] [address] [place], [address] PT Coag (PPP) [Time] 22.3 s High 11.7-14.9 [facility] Comment on above: Performed By: #### L 300.3900 ####[facility] [address] [place], [address] Prothrombin Time w/INRon INR Coag (PPP) [Relative time] 2.6 {INR} Normal [facility] Comment on above: Performed By: #### L 300.3900 ####[facility] [address] [place], [address] PT Coag (PPP) [Time] 27.3 s High 11.7-14.9 [facility] Comment on above: Performed By: #### L 300.3900 ####[facility] [address] [place], [address] Prothrombin Time w/INRon INR Coag (PPP) [Relative time] 3.3 {INR} Normal [facility] Comment on above: Performed By: #### L 300.3900 ####[facility] [address] [place], [place], [address] PT Coag (PPP) [Time] 32.9 s High 11.7-14.9 [facility] Comment on above: Performed By: #### L 300.3900 ####[facility] [address] [place], [address] Capillary blood internationa l normalized ratio (INR)Ordered By: Anupam Lizarraga on 09-13-2023 INR Coag (BldC) [Relative time] 1.2 [facility] Comment on above: Critical Value > 4.0 Whole blood prothrombin time Ordered By: Anupam Lizarraga on 09-13-2023 PT Coag (Bld) [Time] 13.3 s 11.7-14.9 [facility] Basophil percentageOrdered B y: Anupam Lizarraga on 08-24-2023 Basophil percentage 25-50 SEEN /hpf 0-5 [facility] Chloride [Moles/Vol] 108 mmol/L 98-107 [facility] Glucose [Mass/Vol] 107 mg/dL 74-106 [facility] Comment on above: Fasting Glucose resu lt from 100 to 125 mg/dL suggests IMPAIRED HOMEOSTASIS per A.D.A. criteria. Hemoglobin (Bld) [Mass/Vol] 10.4 g/dL 12.0-15.0 [facility] Potassium [Moles/Vol] 4.2 mmol/L 3.5-5.1 [facility] Sodium [Moles/Vol] 141 mmol/L 136-145 [facility] WBC (Bld) [#/Vol] 5.0 10*3/uL 4.4-11.0 [facility] Bilirubin Test strip Ql (U)O rdered By: Anupam Lizarraga on 08-24-2023 Bilirubin Ql (U) Negative Negative [facility] Blood manual differential co mment interpretation (narrative result)Ordered By: Anupam Lizarraga on 08-24-2023 Manual differential comment Nicolas (Bld) [Interp] SCANNED [facility] Comment on above: 1+ ANISOCYTOSIS Determination of erythrocyte mean corpuscular volume (MCV)Ordered By: Anupamben Lizarraga on 08-24-2023 MCV (RBC) [Entitic vol] 98.2 fL 81-99 [facility] Erythrocyte distribution wid th ratioOrdered By: Tyler Zia on 08-24-2023 Erythrocyte distribution width (RBC) [Ratio] 20.0 % 11.6-14.6 [facility] Erythrocyte distribution wid th standard deviationOrdered By: Tyler Zia on 08-24-2023 Erythrocyte distribution width (RBC) [Entitic vol] 72.5 fL 35.1-43.9 [facility] Hematocrit Auto (Bld) [Volum e fraction]Ordered By: Anupam Lizarraga on 08-24-2023 Hematocrit (Bld) [Volume fraction] 33.4 % 37-47 [facility] Ketones Test strip Ql (U)Ord ered By: Anupam Lizarraga on 08-24-2023 Ketones Ql (U) Negative Negative [facility] Laboratory - Chemistry and C hemistry - challengeOrdered By: Anupam Lizarraga on 08-24-2023 CO2 [Moles/Vol] 24.0 mmol/L 21.0-32.0 [facility] Urea nitrogen/Creatinine [Mass ratio] 21.4 mg/mg 10-20 [facility] Laboratory - CoagulationOrde red By: Anupam Lizarraga on 08-24-2023 PT Coag (PPP) [Time] 30.1 s 11.7-14.9 [facility] Laboratory - Hematology and Cell countsOrdered By: Tylerben Lizarraga on 08-24-2023 MCH (RBC) [Entitic mass] 30.6 pg 27.0-32.0 [facility] MCHC (RBC) [Mass/Vol] 31.1 g/dL 32-36 [facility] Platelet mean volume (Bld) [Entitic vol] 10.1 fL 6.2-12.0 [facility] Platelets (Bld) [#/Vol] 233 10*3/uL 150-450 [facility] Mucus LM Ql (Urine sed)Order ed By: Anupam Lizarraga on 08-24-2023 Mucus Ql (Urine sed) 0 SEEN /hpf [facility] Nitrite Test strip Ql (U)Ord ered By: Anupam Lizarraga on 08-24-2023 Nitrite Ql (U) Negative Negative [facility] No Panel InformationOrdered By: Anupam Lizarraga on 08-24-2023 Estimated GFR (MDRD) Amer 58 mL/min >60 [facility] Comment on above: GFR Calc Estimated GFR (MDRD) Non-Af Amer 48 mL/min >60 [facility] Comment on above: Non- GFR Calc Urine RBC 0-5 SEEN /hpf 0-5 [facility] Protein Test strip Ql (U)Ord ered By: Anupam Lizarraga on 08-24-2023 Protein Ql (U) Negative Negative [facility] RBC Auto (Bld) [#/Vol]Ordere d By: Anupam Lizarraga on 08-24-2023 RBC (Bld) [#/Vol] 3.40 10*6/uL 4.2-5.4 [facility] Serum or plasma calcium darlene urement (mass/volume)Ordered By: Anupam Lizarraga on 08-24-2023 Calcium [Mass/Vol] 9.4 mg/dL 8.5-10.1 [facility] Serum or plasma creatinine m easurement (mass/volume)Ordered By: Anupam Lizarraga on 08-24-2023 Creatinine [Mass/Vol] 1.17 mg/dL 0.55-1.02 [facility] Comment on above: The validity of the calculated GFR & GFRAA in patients over 70 years has not been determined. Clinical correlation is essential. Serum or plasma urea nitroge n measurement (mass/volume)Ordered By: Anupam Lizarraga on 08-24-2023 Urea nitrogen [Mass/Vol] 25 mg/dL 7-18 [facility] Squamous epithelial cells de tection in urine sediment by light microscopyOrdered By: Anupam Lizarraga on 08-24-2023 Epithelial cells.squamous LM Ql (Urine sed) 0-5 SEEN /hpf 5-10 [facility] Thin prep Papanicolaou smear with manual screeningOrdered By: Anupam Lizarraga on 08-24-2023 Thin prep Papanicolaou smear with manual screening 9 5-15 [facility] Urine blood detectionOrdered By: Anupam Lizarraga on 08-24-2023 RBC Ql (U) 10 /ul Negative [facility] Urine clarityOrdered By: Sergio Lizarraga on 08-24-2023 Clarity (U) Sl. Cloudy Clear [facility] Urine color determinationOrd ered By: Anupam Lizarraga on 08-24-2023 Color (U) Yellow Yellow [facility] Urine glucose detectionOrder ed By: Anupam Lizarraga on 08-24-2023 Glucose Ql (U) Normal mg/dl Normal [facility] Urine leukocyte esterase det ection by dipstickOrdered By: Anupma Lizarraga on 08-24-2023 Leukocyte esterase Test strip Ql (U) 500 /ul Negative [facility] Urine pHOrdered By: Johanna on 08-24-2023 pH (U) 6.0 [pH] 5.0 - 8.0 [facility] Urine sediment bacteria coun t by microscopy (number/high power field)Ordered By: Anupam Lizarraga on 08-24-2023 Bacteria LM.HPF (Urine sed) [#/Area] 1 /[HPF] None Seen [facility] Urine specific gravity measu rementOrdered By: Anupam Lizarraga on 08-24-2023 Specific gravity (U) [Rel density] 1.015 1.002-1.03 0 [facility] Urine urobilinogen measureme ntOrdered By: Anupam Lizarraga on 08-24-2023 Urobilinogen Ql (U) Normal mg/dl Normal [facility] Laboratory - CoagulationOrde red By: Anupam Lizarraga on 07-29-2023 INR Coag (Bld) [Relative time] 2.3 {INR} [facility] PT Coag (PPP) [Time] 24.9 s 11.7-14.9 [facility] International normalized rat io (INR) calculationOrdered By: nAupam Lizarraga on 06-16-2023 INR Coag (PPP) [Relative time] 3.3 {INR} [facility] Laboratory - CoagulationOrde red By: Anupam Lizarraga on 06-16-2023 PT Coag (PPP) [Time] 34.3 s 11.7-14.9 [facility] INR in Blood by Coagulation assayOrdered By: Anupam Modiori on 04-30-2023 INR Coag (Bld) [Relative time] 2.4 {INR} [facility] Laboratory - CoagulationOrde red By: Tyler Zia on 04-30-2023 PT Coag (PPP) [Time] 26.2 s 11.7-14.9 [facility] INR in Blood by Coagulation assayOrdered By: Tyler Zia on 04-21-2023 INR Coag (Bld) [Relative time] 3.4 {INR} [facility] Laboratory - CoagulationOrde red By: Anupam Zia on 04-21-2023 PT Coag (PPP) [Time] 34.8 s 11.7-14.9 [facility] INR in Blood by Coagulation assayOrdered By: Anupam Zia on 03-25-2023 INR Coag (Bld) [Relative time] 2.9 {INR} [facility] Laboratory - CoagulationOrde red By: Tyler Zia on 03-25-2023 PT Coag (PPP) [Time] 30.5 s 11.7-14.9 [facility] INR in Blood by Coagulation assayOrdered By: Anupam Zia on 02-22-2023 INR Coag (Bld) [Relative time] 2.4 {INR} [facility] Laboratory - CoagulationOrde red By: Tyler Zia on 02-22-2023 PT Coag (PPP) [Time] 26.8 s 11.7-14.9 [facility] INR in Blood by Coagulation assayOrdered By: Anupam Zia on 01-21-2023 INR Coag (Bld) [Relative time] 2.2 {INR} [facility] Laboratory - CoagulationOrde red By: Tyler Zia on 01-21-2023 PT Coag (PPP) [Time] 24.7 s 11.7-14.9 [facility] INR in Blood by Coagulation assayOrdered By: Anupam Zia on 12-18-2022 INR Coag (Bld) [Relative time] 2.7 {INR} [facility] Laboratory - CoagulationOrde red By: Anupam Zia on 12-18-2022 PT Coag (PPP) [Time] 29.0 s 11.7-14.9 [facility] INR in Blood by Coagulation assayOrdered By: Anupam Lizarraga on 11-24-2022 INR Coag (Bld) [Relative time] 2.5 {INR} [facility] Laboratory - CoagulationOrde red By: Anupam Lizarraga on 11-24-2022 PT Coag (PPP) [Time] 26.9 s 11.7-14.9 [facility] INR in Blood by Coagulation assayOrdered By: Dr. Lizarraga on 10-22-2022 INR Coag (Bld) [Relative time] 2.5 {INR} [facility] Laboratory - CoagulationOrde red By: Dr. Lizarraga on 10-22-2022 PT Coag (PPP) [Time] 27.5 s 11.7-14.9 [facility] INR in Blood by Coagulation assayOrdered By: Dr. Lizarraga on 09-17-2022 INR Coag (Bld) [Relative time] 2.2 {INR} [facility] Laboratory - CoagulationOrde red By: Dr. Lizarraga on 09-17-2022 PT Coag (PPP) [Time] 24.0 s 11.7-14.9 [facility] Absolute lymphocyte countOrd ered By: Yoshi Swann on 09-04-2022 Lymphocytes Auto (Unsp spec) [#/Vol] 1.58 10*3/uL 0.83-4.51 [facility] Atypical perinuclear antineu trophil cytoplasmic antibodies measurementOrdered By: Yoshi Swann on 09-04-2022 Neutrophil cytoplasmic Ab.perinuclear.atypical IF (S) [Titer] <1:20 titer Neg:<1:20 [facility] Comment on above: The atypical pANCA p attern has been observed in asignificant percentage of patients with ulcerative colitis,primary sclerosing cholangitis and autoimmune hepatitis. Basophil percentageOrdered B y: Yoshi Swann on 09-04-2022 Amylase [Catalytic activity/Vol] 90 U/L 25-115 [facility] Basophil percentage < 0.2 AI 0.0-0.9 [facility] Basophils/100 WBC (Bld) 1.5 % 0-1 [facility] Bilirubin [Mass/Vol] 0.60 mg/dL 0.20-1.00 [facility] Comment on above: For patients on eltr ombopag therapy, use of Dimension [place] TBIL is not recommended. Chloride [Moles/Vol] 108 mmol/L 98-107 [facility] Eosinophils/100 WBC (Bld) 6.9 % 0-5 [facility] Glucose [Mass/Vol] 94 mg/dL 74-106 [facility] Neutrophils (Bld) [#/Vol] 2.3 10*3/uL 2.0-7.7 [facility] Neutrophils/100 WBC (Bld) 48.2 % 47-70 [facility] Potassium [Moles/Vol] 4.2 mmol/L 3.5-5.1 [facility] Protein [Mass/Vol] 7.1 g/dL 6.4-8.2 [facility] Sodium [Moles/Vol] 139 mmol/L 136-145 [facility] WBC (Bld) [#/Vol] 4.8 10*3/uL 4.4-11.0 [facility] Blood erythrocytes count (nu mber/volume)Ordered By: Yoshi Swann on 09-04-2022 RBC (Bld) [#/Vol] 3.11 10*6/uL 4.2-5.4 [facility] Blood hemoglobin measurement (mass/volume)Ordered By: Yoshi Swann on 09-04-2022 Hemoglobin (Bld) [Mass/Vol] 9.8 g/dL 12.0-15.0 [facility] Blood lymphocytes/100 leukoc ytesOrdered By: Yoshi Swann on 09-04-2022 Lymphocytes/100 WBC (Bld) 33.3 % 19-41 [facility] Blood manual differential co mment interpretation (narrative result)Ordered By: Yoshi Swann on 09-04-2022 Manual differential comment Nicolas (Bld) [Interp] SCANNED [facility] Comment on above: ANISOCYTOSIS Blood monocytes/100 leukocyt esOrdered By: Yoshi Swann on 09-04-2022 Monocytes/100 WBC (Bld) 9.9 % 0-10 [facility] Blood platelet mean volumeOr dered By: Yoshi Swann on 09-04-2022 Platelet mean volume (Bld) [Entitic vol] 10.7 fL 6.2-12.0 [facility] Determination of erythrocyte mean corpuscular volume (MCV)Ordered By: Yoshi Swann on 09-04-2022 MCV (RBC) [Entitic vol] 101.0 fL 81-99 [facility] Erythrocyte sedimentation ra teOrdered By: Yoshi Swann on 09-04-2022 ESR (Bld) [Velocity] 16 mm/h 0-30 [facility] Hematocrit Auto (Bld) [Volum e fraction]Ordered By: Yoshi Swann on 09-04-2022 Hematocrit (Bld) [Volume fraction] 31.4 % 37-47 [facility] Hypochromatic red blood cell detectionOrdered By: Yoshi Swann on 09-04-2022 Hypochromia Ql (Bld) 1+ [facility] Interpretation of serum or p lasma protein pattern by immunofixation (narrative resultOrdered By: Yoshi Swann on 09-04-2022 Protein Fractions Immunofixation Nicolas [Interp] See comment [facility] Comment on above: Result: Not Observed Laboratory - Chemistry and C hemistry - challengeOrdered By: Yoshi Swann on 09-04-2022 ALP [Catalytic activity/Vol] 61 U/L 45-117 [facility] ALT [Catalytic activity/Vol] 11 U/L 13-56 [facility] CO2 [Moles/Vol] 28.0 mmol/L 21.0-32.0 [facility] Lipase [Catalytic activity/Vol] 258 U/L 73-393 [facility] Urea nitrogen/Creatinine [Mass ratio] 16.8 mg/mg 10-20 [facility] Laboratory - Hematology and Cell countsOrdered By: Yoshi Swann on 09-04-2022 Anisocytosis Ql (Bld) 2+ [facility] Erythrocyte distribution width (RBC) [Entitic vol] 71.8 fL 35.1-43.9 [facility] Erythrocyte distribution width (RBC) [Ratio] 19.3 % 11.6-14.6 [facility] Immature granulocytes/100 WBC (Bld) 0.200 % 0.0-0.9 [facility] Comment on above: IG% - Immature Granu locytes (promyelocytes, myelocytes and metamyelocytes) > 1% indicates that a LEFT SHIFT is Present. MCH (RBC) [Entitic mass] 31.5 pg 27.0-32.0 [facility] Nucleated RBC/100 WBC (Bld) [Ratio] 0 % 0-5 [facility] MCHC Auto (RBC) [Mass/Vol]Or dered By: Yoshi Swann on 09-04-2022 MCHC (RBC) [Mass/Vol] 31.2 g/dL 32-36 [facility] No Panel InformationOrdered By: Yoshi Swann on 09-04-2022 Addendum Document Comment . [facility] Comment on above: Protein electrophore sis scan will follow via computer,mail, or chimney builder helper delivery. CA 19-9 Antigen 24 U/mL 0-35 [facility] Comment on above: [facility] [employer] El ectrochemiluminescence Immunoassay(ECLIA)Values obtained with different assay methods or kits cannotbe used interchangeably. Results cannot be interpreted asabsolute evidence of the presence or absence of malignantdisease. CA 19-9 Antigen Serial Monitoring Not Reportable [facility] Centromere B Antibody <0.2 AI 0.0-0.9 [facility] Endomysial IgA Antibody Negative Negative [facility] Estimated GFR (MDRD) Amer 69 mL/min >60 [facility] Comment on above: GFR Calc Estimated GFR (MDRD) Non-Af Amer 57 mL/min >60 [facility] Comment on above: Non- GFR Calc Hepatitis A IgM Antibody Negative Negative [facility] Hepatitis B Core IgM Antibody Negative Negative [facility] Hepatitis C Antibody (EIA) Non-Reactive Non Reactive [facility] Hepatitis C Antibody Comment Comment . [facility] Comment on above: Not infected with HC V unless early or acute infection issuspected (which may be delayed in an immunocompromisedindividual), or other evidence exists to indicate HCVinfection. Immunoglobulin E 74 IU/mL 6-495 [facility] Comment on above: Performed at: [address] [id number] Director: Shoaib Ellis PhD, Phone: [phone] at: [facility] [address] [id number] Director: Viridiana Esquivel MD, Phone: [phone] Immunoglobulin G4 74 mg/dL 2-96 [facility] MANAGER NEWS Antibody <0.2 AI 0.0-0.9 [facility] Ovalocyte detectionOrdered B y: Yoshi Hue on 09-04-2022 Ovalocytes LM Ql (Bld) 1+ [facility] Platelets bldOrdered By: Brayden castaneda Hue on 09-04-2022 Platelets (Bld) [#/Vol] 183 10*3/uL 150-450 [facility] Serum DNA double strand anti body assay (units/volume)Ordered By: Yoshikaris Swann on 09-04-2022 DNA double strand Ab Qn (S) 1 [IU]/mL 0-9 [facility] Comment on above: Negative <5 Equivoca l 5 - 9 Positive >9 Serum IgA measurement (units /volume)Ordered By: Yoshikaris Swann on 09-04-2022 IgA Qn (S) 407 mg/dL 64-422 [facility] Comment on above: Performed at: [address] [id number] Director: Shoaib Ellis PhD, Phone: [phone] Serum IgG subclass 1 measure ment (mass/volume)Ordered By: Yoshikaris Swann on 09-04-2022 IgG subclass 1 (S) [Mass/Vol] 581 mg/dL 248-810 [facility] Serum IgG subclass 2 measure ment (mass/volume)Ordered By: Yoshi Swann on 09-04-2022 IgG subclass 2 (S) [Mass/Vol] 269 mg/dL 130-555 [facility] Serum IgG subclass 3 measure ment (mass/volume)Ordered By: Yoshikaris Swann on 09-04-2022 IgG subclass 3 (S) [Mass/Vol] 167 mg/dL 15-102 [facility] Serum Nargis-1 antibody assay (u nits/volume)Ordered By: Yoshikaris Swann on 09-04-2022 Nargis-1 extractable nuclear Ab Qn (S) <0.2 AI 0.0-0.9 [facility] Serum Scl-70 extractable nuc lear antibody assay (units/volume)Ordered By: Yoshi Swann on 09-04-2022 SCL-70 extractable nuclear Ab Qn (S) <0.2 AI 0.0-0.9 [facility] Serum Mcfarlane extractable nucl ear antibody detectionOrdered By: Yoshi Swann on 09-04-2022 Mcfarlane extractable nuclear Ab Ql (S) <0.2 AI 0.0-0.9 [facility] Serum [id number] measu rement by electrophoresisOrdered By: Yoshi Swann on 09-04-2022 Alpha 1 globulin Elph [Mass/Vol] 0.3 g/dL 0.0-0.4 [facility] Alpha 1 globulin Elph [Mass/Vol] 0.5 g/dL 0.4-1.0 [facility] Serum classic neutrophil cyt oplasmic antibody assay (units/volume)Ordered By: Yoshi Swann on 09-04-2022 Neutrophil cytoplasmic Ab.classic Qn (S) <1:20 titer Neg:<1:20 [facility] Serum globulin measurement ( mass/volume)Ordered By: Yoshi Swann on 09-04-2022 Globulin (S) [Mass/Vol] 2.7 g/dL 2.2-3.9 [facility] Serum or plasma C reactive p rotein measurement (mass/volume)Ordered By: Yoshi Swann on 09-04-2022 CRP [Mass/Vol] mg/L 0.0-3.0 [facility] Comment on above: C-Reactive Protein ( CRP) provides useful information for thediagnosis, therapy and monitoring of inflammatory processesand associated diseases. For the evaluation of Relative Riskfor Cardiovascular Disease, a High Sensitivity CRP (HSCRP)should be ordered. Serum or plasma IgG measurem ent (mass/volume)Ordered By: Yoshi Swann on 09-04-2022 IgG [Mass/Vol] 1066 mg/dL [phone] [facility] IgG [Mass/Vol] Not Reportable [facility] Serum or plasma IgM measurem ent (mass/volume)Ordered By: Yoshi Swann on 09-04-2022 IgM [Mass/Vol] 117 mg/dL 26-217 [facility] Serum or plasma albumin darlene urement (mass/volume)Ordered By: Yoshi Swann on 09-04-2022 Albumin [Mass/Vol] 3.9 g/dL 2.9-4.4 [facility] Serum or plasma albumin/glob ulin mass ratioOrdered By: Yoshi Swann on 09-04-2022 Albumin/Globulin [Mass ratio] 1.2 {ratio} 0.9-2.4 [facility] Serum or plasma beta globuli n measurement by electrophoresis (mass/volume)Ordered By: Yoshi Swann on 09-04-2022 Beta globulin Elph [Mass/Vol] 0.9 g/dL 0.7-1.3 [facility] Serum or plasma calcium darlene urement (mass/volume)Ordered By: Yoshi Swann on 09-04-2022 Calcium [Mass/Vol] 9.1 mg/dL 8.5-10.1 [facility] Serum or plasma creatinine m easurement (mass/volume)Ordered By: Yoshi Swann on 09-04-2022 Creatinine [Mass/Vol] 1.01 mg/dL 0.55-1.02 [facility] Comment on above: The validity of the calculated GFR & GFRAA in patients over 70 years has not been determined. Clinical correlation is essential. Serum or plasma gamma globul in measurement by electrophoresis (mass/volume)Ordered By: Yoshi Swann on 09-04-2022 Gamma globulin Elph [Mass/Vol] 1.0 g/dL 0.4-1.8 [facility] Serum or plasma hepatitis B virus surface antigen detection by immunoassayOrdered By: Yoshi Swann on 09-04-2022 HBV surface Ag IA Ql Negative Negative [facility] Serum or plasma immunoelectr ophoresis interpretation (nominal result)Ordered By: Yoshi Swann on 09-04-2022 Interpretation IEP [Interp] Comment . [facility] Comment on above: No monoclonality det ected. Serum or plasma urea nitroge n measurement (mass/volume)Ordered By: Yoshi Swann on 09-04-2022 Urea nitrogen [Mass/Vol] 17 mg/dL 7-18 [facility] Serum perinuclear neutrophil cytoplasmic antibody titer by immunofluorescenceOrdered By: Yoshi Swann on 09-04-2022 Neutrophil cytoplasmic Ab.perinuclear IF (S) [Titer] <1:20 titer Neg:<1:20 [facility] Comment on above: The presence of posi tive fluorescence exhibiting P-ANCA orC-ANCA patterns alone is not specific for the diagnosis ofWegener's Granulomatosis (WG) or microscopic polyangiitis.Decisions about treatment should not be based solely onANCA IFA results. The [employer] ANCA Group Consensusrecommends follow up testing of positive sera with both OR-3 and MPO-ANCA enzyme immunoassays. As many as 5% serumsamples are positive only by EIA. Ref. AM J Clin Kfuuva2095;111:507-513. Serum tissue transglutaminas e IgA antibody assay (units/volume)Ordered By: Yoshi Swann on 09-04-2022 tTG IgA Qn (S) <2 U/mL 0-3 [facility] Comment on above: Negative 0 - 3 Weak Positive 4 - 10 Positive >10 Tissue Transglutaminase (tTG) has been identified as the endomysial antigen. Studies have demonstr- ated that endomysial IgA antibodies have over 99% specificity for gluten sensitive enteropathy. Thin prep Papanicolaou smear with manual screeningOrdered By: Yoshi Swann on 09-04-2022 Thin prep Papanicolaou smear with manual screening 20 U/L 15-37 [facility] Thin prep Papanicolaou smear with manual screening 3 5-15 [facility] Thin prep Papanicolaou smear with manual screening 1.5 0.7-1.7 [facility] Total protein bloodOrdered B y: Yoshi Swann on 09-04-2022 Protein [Mass/Vol] 6.6 g/dL 6.0-8.5 [facility] INR in Blood by Coagulation assayOrdered By: Dr. Lizarraga on 08-20-2022 INR Coag (Bld) [Relative time] 2.7 {INR} [facility] Laboratory - CoagulationOrde red By: Dr. Lizarraga on 08-20-2022 PT Coag (PPP) [Time] 28.4 s 11.7-14.9 [facility] INR in Blood by Coagulation assayOrdered By: Dr. Lizarraga on 07-13-2022 INR Coag (Bld) [Relative time] 2.7 {INR} [facility] Laboratory - CoagulationOrde red By: Dr. Lizarraga on 07-13-2022 PT Coag (PPP) [Time] 28.2 s 11.7-14.9 [facility] Basophil percentageOrdered B y: Dr. Lizarraga on 05-29-2022 Amylase [Catalytic activity/Vol] 101 U/L 25-115 [facility] Bilirubin [Mass/Vol] 0.50 mg/dL 0.20-1.00 [facility] Comment on above: For patients on eltr ombopag therapy, use of Dimension [place] TBIL is not recommended. Chloride [Moles/Vol] 107 mmol/L 98-107 [facility] Glucose [Mass/Vol] 87 mg/dL 74-106 [facility] Potassium [Moles/Vol] 3.9 mmol/L 3.5-5.1 [facility] Protein [Mass/Vol] 6.9 g/dL 6.4-8.2 [facility] Sodium [Moles/Vol] 140 mmol/L 136-145 [facility] WBC (Bld) [#/Vol] 5.0 10*3/uL 4.4-11.0 [facility] Blood erythrocytes count (nu mber/volume)Ordered By: Dr. Lizarraga on 05-29-2022 RBC (Bld) [#/Vol] 3.27 10*6/uL 4.2-5.4 [facility] Blood hemoglobin measurement (mass/volume)Ordered By: Dr. Lizarraga on 05-29-2022 Hemoglobin (Bld) [Mass/Vol] 10.5 g/dL 12.0-15.0 [facility] Blood manual differential co mment interpretation (narrative result)Ordered By: Dr. Lizarraga on 05-29-2022 Manual differential comment Nicolas (Bld) [Interp] SCANNED [facility] Comment on above: 1+ ANISOCYTOSIS Blood platelet mean volumeOr dered By: Dr. Lizarraga on 05-29-2022 Platelet mean volume (Bld) [Entitic vol] 10.2 fL 6.2-12.0 [facility] Determination of erythrocyte mean corpuscular volume (MCV)Ordered By: Dr. Lizarraga on 05-29-2022 MCV (RBC) [Entitic vol] 102.1 fL 81-99 [facility] Hematocrit Auto (Bld) [Volum e fraction]Ordered By: Dr. Lizarraga on 05-29-2022 Hematocrit (Bld) [Volume fraction] 33.4 % 37-47 [facility] INR in Blood by Coagulation assayOrdered By: Dr. Lizarraga on 05-29-2022 INR Coag (Bld) [Relative time] 2.8 {INR} [facility] Laboratory - Chemistry and C hemistry - challengeOrdered By: Dr. Lizarraga on 05-29-2022 ALP [Catalytic activity/Vol] 63 U/L 45-117 [facility] ALT [Catalytic activity/Vol] 18 U/L 13-56 [facility] CO2 [Moles/Vol] 29.0 mmol/L 21.0-32.0 [facility] Globulin (S) [Mass/Vol] 3.4 g/dL 2.2-4.2 [facility] Lipase [Catalytic activity/Vol] 208 U/L 73-393 [facility] Urea nitrogen/Creatinine [Mass ratio] 17.9 mg/mg 10-20 [facility] Laboratory - CoagulationOrde red By: Dr. Lizarraga on 05-29-2022 PT Coag (PPP) [Time] 29.2 s 11.7-14.9 [facility] Laboratory - Hematology and Cell countsOrdered By: Dr. Lizarraga on 05-29-2022 Erythrocyte distribution width (RBC) [Entitic vol] 68.2 fL 35.1-43.9 [facility] Erythrocyte distribution width (RBC) [Ratio] 18.6 % 11.6-14.6 [facility] MCH (RBC) [Entitic mass] 32.1 pg 27.0-32.0 [facility] MCHC Auto (RBC) [Mass/Vol]Or dered By: Dr. Lizarraga on 05-29-2022 MCHC (RBC) [Mass/Vol] 31.4 g/dL 32-36 [facility] No Panel InformationOrdered By: Dr. Lizarraga on 05-29-2022 CA 19-9 Antigen 35 U/mL 0-35 [facility] Comment on above: [employer] El ectrochemiluminescence Immunoassay(ECLIA)Values obtained with different assay methods or kits cannotbe used interchangeably. Results cannot be interpreted asabsolute evidence of the presence or absence of malignantdisease. Estimated GFR (MDRD) Amer 61 mL/min >60 [facility] Comment on above: GFR Calc Estimated GFR (MDRD) Non-Af Amer 50 mL/min >60 [facility] Comment on above: Non- GFR Calc Platelets bldOrdered By: Dr. Lizarraga on 05-29-2022 Platelets (Bld) [#/Vol] 205 10*3/uL 150-450 [facility] Serum Helicobacter pylori Ig G antibody assay (units/volume)Ordered By: Dr. Lizarraga on 05-29-2022 H. pylori IgG Qn (S) 0.12 0.00-0.79 [facility] Comment on above: Result Units: Index Value Negative <0.80 Equivocal 0.80 - 0.89 Positive >0.89Performed at: [employer] [place] [id number] Director: Shoaib Ellis PhD, Phone: [phone] Serum or plasma albumin darlene urement (mass/volume)Ordered By: Dr. Lizarraga on 05-29-2022 Albumin [Mass/Vol] 3.5 g/dL 3.2-5.0 [facility] Serum or plasma albumin/glob ulin mass ratioOrdered By: Dr. Lizarraga on 05-29-2022 Albumin/Globulin [Mass ratio] 1.0 {ratio} 0.9-2.4 [facility] Serum or plasma calcium darlene urement (mass/volume)Ordered By: Dr. Lizarraga on 05-29-2022 Calcium [Mass/Vol] 8.7 mg/dL 8.5-10.1 [facility] Serum or plasma creatinine m easurement (mass/volume)Ordered By: Dr. Lizarraga on 05-29-2022 Creatinine [Mass/Vol] 1.12 mg/dL 0.55-1.02 [facility] Comment on above: The validity of the calculated GFR & GFRAA in patients over 70 years has not been determined. Clinical correlation is essential. Serum or plasma urea nitroge n measurement (mass/volume)Ordered By: Dr. Lizarraga on 05-29-2022 Urea nitrogen [Mass/Vol] 20 mg/dL 7-18 [facility] Thin prep Papanicolaou smear with manual screeningOrdered By: Dr. Lizarraga on 05-29-2022 Thin prep Papanicolaou smear with manual screening 19 U/L 15-37 [facility] Thin prep Papanicolaou smear with manual screening 4 5-[address] [facility] [address] ABDOMEN/PELVIS W/CONTRAST on 05-28-2022 CT ABDOMEN/PELVIS [...] 05/28/2022 10:40:17 AM Ordering Provider: LOU Maldonado [facility] [place] .GFRon 05-27-2022 GFR 65 ml/min/1.73sqm Normal [facility] [place] Comment on above: Result Comment: GFR Population [...] Performed By: #### G , CRE #### [place] [id number] GFR Non- 53 ml/min/1.73sqm Normal [facility] [place] Comment on above: Result Comment: GFR Population [...] Performed By: #### G , CRE #### [address] [address] CREon 05-27-2022 Creatinine [Mass/Vol] 1.01 mg/dL Normal 0.55-1.02 [facility] ([place]) Comment on above: Performed By: #### Dipti LINARES, CRE #### [address] [address] LABORATORYOrdered By: SYSTEM SYSTEM on 05-27-2022 Creatinine [Mass/Vol] 1.01 mg/dL Invalid Interpretation Code 0.55 - 1.02 mg/dL AO ADM SS GFR 65 ml/min/1.73sqm Invalid Interpretation Code AO Chemistry S GFR Non- 53 ml/min/1.73sqm Inval id Interpretation Code AO Chemistry S INR in Blood by Coagulation assayon 05-15-2022 INR Coag (Bld) [Relative time] 3.2 {INR} [facility] Work Phone: Laboratory - Coagulationon 1 07-16-2021 PT Coag (PPP) [Time] 32.1 s 11.7-14.9 [facility] Work Phone: Basophil percentageon 2021 WBC (Bld) [#/Vol] 5.1 10*3/uL 4.4-11.0 [facility] Work Phone: Blood erythrocytes count (nu mber/volume)on 04-30-2022 RBC (Bld) [#/Vol] 3.49 10*6/uL 4.2-5.4 [facility] Work Phone: Blood hemoglobin measurement (mass/volume)on 04-30-2022 Hemoglobin (Bld) [Mass/Vol] 10.9 g/dL 12.0-15.0 [facility] Work Phone: Blood manual differential co mment interpretation (narrative result)on 04-30-2022 Manual differential comment Nicolas (Bld) [Interp] See comment [facility] Work Phone: Comment on above: RARE ANISOCYTOSIS Blood platelet mean volumeon 04-30-2022 Platelet mean volume (Bld) [Entitic vol] 10.7 fL 6.2-12.0 [facility] Work Phone: Determination of erythrocyte mean corpuscular volume (MCV)on 04-30-2022 MCV (RBC) [Entitic vol] 101.7 fL 81-99 [facility] Work Phone: Hematocrit Auto (Bld) [Volum e fraction]on 04-30-2022 Hematocrit (Bld) [Volume fraction] 35.5 % 37-47 [facility] Work Phone: Laboratory - Hematology and Cell countson 04-30-2022 Erythrocyte distribution width (RBC) [Entitic vol] 67.7 fL 35.1-43.9 [facility] Work Phone: Erythrocyte distribution width (RBC) [Ratio] 18.6 % 11.6-14.6 [facility] Work Phone: MCH (RBC) [Entitic mass] 31.2 pg 27.0-32.0 [facility] Work Phone: MCHC Auto (RBC) [Mass/Vol]on 04-30-2022 MCHC (RBC) [Mass/Vol] 30.7 g/dL 32-36 [facility] Work Phone: Platelets bldon 04-30-2022 Platelets (Bld) [#/Vol] 238 10*3/uL 150-450 [facility] Work Phone: INR in Blood by Coagulation assayOrdered By: Dr. Lizarraga on 04-15-2022 INR Coag (Bld) [Relative time] 2.9 {INR} [facility] Laboratory - CoagulationOrde red By: Dr. Lizarraga on 04-15-2022 PT Coag (PPP) [Time] 30.2 s 11.7-14.9 [facility] INR in Blood by Coagulation assayon 03-05-2022 INR Coag (Bld) [Relative time] 2.8 {INR} [facility] Work Phone: Laboratory - Coagulationon 1 PT Coag (PPP) [Time] 29.1 s 11.7-14.9 [facility] Work Phone: INR in Blood by Coagulation assayon 02-04-2022 INR Coag (Bld) [Relative time] 2.4 {INR} [facility] Work Phone: Laboratory - Coagulationon 0 02-04-2022 PT Coag (PPP) [Time] 25.9 s 11.7-14.9 [facility] Work Phone: INR in Blood by Coagulation assayon 01-05-2022 INR Coag (Bld) [Relative time] 2.8 {INR} [facility] Work Phone: Laboratory - Coagulationon 0 01-05-2022 PT Coag (PPP) [Time] 29.5 s 11.7-14.9 [facility] Work Phone: INR in Blood by Coagulation assayon 12-05-2021 INR Coag (Bld) [Relative time] 2.5 {INR} [facility] Work Phone: Laboratory - Coagulationon 0 12-05-2021 PT Coag (PPP) [Time] 27.0 s 11.7-14.9 [facility] Work Phone: INR in Blood by Coagulation assayon 11-17-2021 INR Coag (Bld) [Relative time] 3.1 {INR} [facility] Work Phone: Laboratory - Coagulationon 0 11-17-2021 PT Coag (PPP) [Time] 31.4 s 11.7-14.9 [facility] Work Phone: Absolute lymphocyte counton 10-21-2021 Lymphocytes Auto (Unsp spec) [#/Vol] 1.08 10*3/uL 0.83-4.51 [facility] Work Phone: Basophil percentageon 2021 Basophils/100 WBC (Bld) 1.5 % 0-1 [facility] Work Phone: Chloride [Moles/Vol] 107 mmol/L 98-107 [facility] Work Phone: Eosinophils/100 WBC (Bld) 4.5 % 0-5 [facility] Work Phone: Glucose [Mass/Vol] 91 mg/dL 74-106 [facility] Work Phone: Neutrophils (Bld) [#/Vol] 2.2 10*3/uL 2.0-7.7 [facility] Work Phone: Neutrophils/100 WBC (Bld) 55.8 % 47-70 [facility] Work Phone: Potassium [Moles/Vol] 4.6 mmol/L 3.5-5.1 [facility] Work Phone: Sodium [Moles/Vol] 136 mmol/L 136-145 [facility] Work Phone: WBC (Bld) [#/Vol] 4.0 10*3/uL 4.4-11.0 [facility] Work Phone: [phone] Blood erythrocytes count (nu mber/volume)on 10-21-2021 RBC (Bld) [#/Vol] 3.48 10*6/uL 4.2-5.4 [facility]: Blood hemoglobin measurement (mass/volume)on 10-21-2021 Hemoglobin (Bld) [Mass/Vol] 11.0 g/dL 12.0-15.0 [facility] Work Phone: Blood lymphocytes/100 leukoc yteson 10-21-2021 Lymphocytes/100 WBC (Bld) 27.1 % 19-41 [facility] Work Phone: Blood monocytes/100 leukocyt eson 10-21-2021 Monocytes/100 WBC (Bld) 10.8 % 0-10 [facility] Work Phone: Blood platelet mean volumeon 10-21-2021 Platelet mean volume (Bld) [Entitic vol] 10.1 fL 6.2-12.0 [facility] Work Phone: Determination of erythrocyte mean corpuscular volume (MCV)on 10-21-2021 MCV (RBC) [Entitic vol] 101.7 fL 81-99 [facility] Work Phone: Hematocrit Auto (Bld) [Volum e fraction]on 10-21-2021 Hematocrit (Bld) [Volume fraction] 35.4 % 37-47 [facility] Work Phone: INR in Blood by Coagulation assayon 10-21-2021 INR Coag (Bld) [Relative time] 2.7 {INR} [facility] Work Phone: Laboratory - Chemistry and C hemistry - challengeon 10-21-2021 CO2 [Moles/Vol] 24.0 mmol/L 21.0-32.0 [facility] Work Phone: Urea nitrogen/Creatinine [Mass ratio] 21.0 mg/mg 10-20 [facility] Work Phone: Laboratory - Coagulationon 0 10-21-2021 PT Coag (PPP) [Time] 28.6 s 11.7-14.9 [facility] Work Phone: Laboratory - Hematology and Cell countson 10-21-2021 Anisocytosis Ql (Bld) [facility]+ [facility] Work Phone: Erythrocyte distribution width (RBC) [Entitic vol] 68.8 fL 35.1-43.9 [facility] Work Phone: Erythrocyte distribution width (RBC) [Ratio] 18.6 % 11.6-14.6 [facility] Work Phone: Immature granulocytes/100 WBC (Bld) 0.300 % 0.0-0.9 [facility] Work Phone: Comment on above: IG% - Immature Granu locytes (promyelocytes, myelocytes and metamyelocytes) > 1% indicates that a LEFT SHIFT is Present. MCH (RBC) [Entitic mass] 31.6 pg 27.0-32.0 [facility] Work Phone: Nucleated RBC/100 WBC (Bld) [Ratio] 0 % 0-5 [facility] Work Phone: MCHC Auto (RBC) [Mass/Vol]on 10-21-2021 MCHC (RBC) [Mass/Vol] 31.1 g/dL 32-36 [facility] Work Phone: No Panel Informationon 10-21 Estimated GFR (MDRD) Amer 66 mL/min >60 [facility] Work Phone: Comment on above: GFR Calc Estimated GFR (MDRD) Non-Af Amer 54 mL/min >60 [facility] Work Phone: Comment on above: Non- GFR Calc Platelets bldon 10-21-2021 Platelets (Bld) [#/Vol] 211 10*3/uL 150-450 [facility] Work Phone: Serum or plasma calcium darlene urement (mass/volume)on 10-21-2021 Calcium [Mass/Vol] 9.3 mg/dL 8.5-10.1 [facility] Work Phone: Serum or plasma creatinine m easurement (mass/volume)on 10-21-2021 Creatinine [Mass/Vol] 1.05 mg/dL 0.55-1.02 [facility] Work Phone: Comment on above: The validity of the calculated GFR & GFRAA in patients over 70 years has not been determined. Clinical correlation is essential. Serum or plasma urea nitroge n measurement (mass/volume)on 10-21-2021 Urea nitrogen [Mass/Vol] 22 mg/dL 7-18 [facility] Work Phone: Thin prep Papanicolaou smear with manual screeningon 10-21-2021 Thin prep Papanicolaou smear with manual screening 5 5-15 [facility] Work Phone: INR in Blood by Coagulation assayon 09-25-2021 INR Coag (Bld) [Relative time] 2.7 {INR} [facility] Work Phone: Laboratory - Coagulationon 0 09-25-2021 PT Coag (PPP) [Time] 28.6 s 11.7-14.9 [facility] Work Phone: INR in Blood by Coagulation assayon 08-28-2021 INR Coag (Bld) [Relative time] 2.7 {INR} [facility] Work Phone: Laboratory - Coagulationon 0 08-28-2021 PT Coag (PPP) [Time] 27.9 s 11.7-14.9 [facility] Work Phone: INR in Blood by Coagulation assayon 07-01-2021 INR Coag (Bld) [Relative time] 3.0 {INR} [facility] Work Phone: Laboratory - Coagulationon 0 07-01-2021 PT Coag (PPP) [Time] 29.9 s 11.7-14.9 [facility] Work Phone: INR in Blood by Coagulation assayon 06-03-2021 INR Coag (Bld) [Relative time] 2.7 {INR} [facility] Work Phone: Laboratory - Coagulationon 0 06-03-2021 PT Coag (PPP) [Time] 27.4 s 11.7-14.9 [facility] Work Phone: INR in Blood by Coagulation assayon 05-21-2021 INR Coag (Bld) [Relative time] 3.2 {INR} [facility] Work Phone: Laboratory - Coagulationon 1 07-22-2020 PT Coag (PPP) [Time] 31.8 s 11.7-14.9 [facility] Work Phone: CT LUMBAR SPINE WO IVCONon 0 07-24-2019 CT LUMBAR SPINE WO IVCON * * *Final Repo rt* * * DATE OF EXAM: Jul 24 2019 2:23PM [facility] 0508 - CT LUMBAR SPINE [...] is taken as L5-S1. Structural anomalies: None. Unit Coordinator: AMY Transcribe Date/Time: Jul 24 2019 2:30P Dictated by : AFSANEH APARICIO MD This examination was interpreted and the report reviewed and electronically signed by: AFSANEH APARICIO MD on Jul 24 2019 2:37PM EST [id number] Normal [facility] PROGRESSon 07-24-2019 PROGRESS HNO ID: [id number] Author: Lety Lemus (Tech) Service: ? Author Type: Roll Coating Machine Operator Type: Progress Notes Filed: 07/24/2019 2:38 PM [...] [place] July 24, 2019 2:38 PM Normal [facility] Lab Report: Prothrombin Time w/INRon 07-28-2017 Coagulation tissue factor induced in platelet poor plasma 28.9 s High 11.7-14.9 [facility] Work Phone: INR in blood by coagulation 2.7 {INR} Invalid Interpretation Code [facility] Work Phone: [phone] Lab Report: Prothrombin Time w/INRon 07-14-2017 Coagulation tissue factor induced in platelet poor plasma 21.2 s High 11.7-14.[address] [facility] Work Phone: [phone] INR in blood by coagulation 1.9 {INR} Invalid Interpretation Code [facility] Work Phone: [phone] Lab Report: Prothrombin Time w/INRon 06-11-2017 Coagulation tissue factor induced in platelet poor plasma 26.7 s High 11.7-14.[address] [facility] Work Phone: [phone] INR in blood by coagulation 2.6 {INR} Invalid Interpretation Code [facility] Work Phone: [phone] Lab Report: CBC W/Diff, Auto matedon 05-04-2017 Absolute Neut 2.3 X10 3/UL Invalid Interpretation Code 2.0-7.[address] [facility] Work Phone: [phone] Basophils/100 WBC Auto (Bld) 0.2 % Invalid Interpretation Code 0-[address] [facility] Work Phone: [phone] Eosinophils/100 leukocytes 3.4 % Invalid Interpretation Code 0-[address] [facility] Work Phone: [phone] Erythrocyte distribution width Auto Ratio (RBC) 18.0 % High 11.6-14.[address] [facility] Work Phone: [phone] Erythrocytes (RBC) 3.46 10*6/uL Low 4.2-5.4 [facility] Work Phone: [phone] Hematocrit (HCT) 34.1 % Low 37-[address] [facility] Work Phone: [phone] Hemoglobin mass conc (Bld) 10.5 g/dL Low 12.0-15.[address] [facility] Work Phone: [phone] immature granulocytes, percentage of total cells, blood 0.000 % Invalid Interpretation Code 0.0-0.[address] [facility] Work Phone: [phone] Immature granulocytes/100 WBC (Bld) 0.000 % Invalid Interpretation Code 0.0-0.9 [facility] Work Phone: [phone] Lymphocytes 1.85 X10 3/UL Invalid Interpretation Code 0.83-4.[address] [facility] Work Phone: [phone] Lymphocytes/100 leukocytes 39.6 % Invalid Interpretation Code 19-41 [facility] Work Phone: [phone] MCH 30.3 pg Invalid Interpretation Code 27.0-32.0 [facility] Work Phone: [phone] MCHC mass conc (RBC) 30.8 G/GL Low 32-[address] [facility] Work Phone: [phone] MCV 98.6 fL Invalid Interpretation Code 81-[address] [facility] Work Phone: [phone] Monocytes/100 leukocytes 8.4 % Invalid Interpretation Code 0-[address] [facility] Work Phone: [phone] neutrophil count, blood 2.3 X10 3/UL Invalid Interpretation Code 2.0-7.7 [facility] Work Phone: [phone] Neutrophils/100 WBC Auto (Bld) 48.4 % Invalid Interpretation Code 47-70 [facility] Work Phone: [phone] Platelets 211 10*3/mm3 Invalid Interpretation Code 150-450 [facility] Work Phone: [phone] PMV by Julio 10.3 fL Invalid Interpretation Code 6.2-12.[address] [facility] Work Phone: [phone] RDW SD 64.0 fL High 35.1-43.9 [facility] Work Phone: [phone] red blood cell distribution width, size density 64.0 fL High 35.1-43.[address] [facility] Work Phone: [phone] WBC (Leukocytes) 4.7 10*3/uL Invalid Interpretation Code 4.4-11.[address] [facility] Work Phone: [phone] Lab Report: [facility] Profilon 05-04-2017 Alanine aminotransferase (ALT) 8 U/L Low 12-78 [facility] Work Phone: [phone] Albumin 4.0 g/dL Invalid Interpretation Code 3.4-5.0 [facility] Work Phone: Albumin/Globulin Ratio 1.1 {ratio} Invalid Interpretation Code 0.9-2.[address] [facility] Work Phone: [phone] Alkaline phosphatase (ALP) 70 U/L Invalid Interpretation Code 45-[address] [facility] Work Phone: [phone] Anion gap 6 mmol/L Invalid Interpretation Code 5-15 [facility] Work Phone: [phone] Aspartate aminotransferase (AST) 18 U/L Invalid Interpretation Code 15-37 [facility] Work Phone: [phone] Bilirubin (total) 0.50 mg/dL Invalid Interpretation Code 0.20-1.00 [facility] Work Phone: [phone] BUN/Creatinine Ratio 24.1 RATIO High 10-20 [facility] Work Phone: [phone] Calcium 8.9 mg/dL Invalid Interpretation Code 8.5-10.1 [facility] Work Phone: [phone] Chloride 109 mmol/L High 98-107 [facility] Work Phone: [phone] CO2 24.0 mmol/L Invalid Interpretation Code 21.0-32.0 [facility] Work Phone: [phone] Creatinine 0.87 mg/dL Invalid Interpretation Code 0.55-1.02 [facility] Work Phone: [phone] eGFR (non-black) 68 mL/min/{1.73_m2} Invalid Interpretation Code >60 [facility] Work Phone: [phone] eGFR (non-black) 82 mL/min/{1.73_m2} Invalid Interpretation Code >[address] [facility] Work Phone: [phone] Globulin 3.5 g/dL Invalid Interpretation Code 2.2-4.2 [facility] Work Phone: [phone] Glucose 91 mg/dL Invalid Interpretation Code 70-110 [facility] Work Phone: [phone] Glucose mass conc 91 mg/dL Invalid Interpretation Code 70-110 [facility] Work Phone: [phone] Potassium molar conc 4.4 mmol/L Invalid Interpretation Code 3.5-5.[address] [facility] Work Phone: [phone] Protein 7.5 g/dL Invalid Interpretation Code 6.4-8.2 [facility] Work Phone: [phone] Sodium 139 mmol/L Invalid Interpretation Code 136-[address] [facility] Work Phone: [phone] Urea nitrogen 21 mg/dL High 7-[address] [facility] Work Phone: [phone] Lab Report: Lipid Profileon 05-04-2017 Cholesterol 196 mg/dL Invalid Interpretation Code [address] [facility] Work Phone: [phone] HDL Cholesterol 83 mg/dL Invalid Interpretation Code [facility] Work Phone: [phone] LDL Cholesterol 103 mg/dL Invalid Interpretation Code 0-130 [facility] Work Phone: [phone] Triglyceride 52 mg/dL Invalid Interpretation Code [facility] Work Phone: [phone] very low density lipoproteins 10 mg/dL Invalid Interpretation Code 5-40 [facility] Work Phone: [phone] Lab Report: Prothrombin Time w/INRon 05-04-2017 INR Coag RelTime (PPP) 2.2 {INR} Invalid Interpretation Code [facility] Work Phone: [phone] Prothrombin time (PT) Coag time (PPP) 23.8 s High 11.7-14.9 [facility] Work Phone: [phone] Coumadin Management: Warfari n Calcon 03-26-2017 INR Coag RelTime (Bld) Hospital lab Invalid Interpretation Code [facility] Work Phone: [phone] INR Coag RelTime (Bld) 2 to 3 Invalid Interpretation Code [facility] Work Phone: [phone] INR Coag RelTime (PPP) 2.3 {INR} Invalid Interpretation Code [facility] Work Phone: [phone] Prothrombin time (PT) Coag time (PPP) 24.2 s Invalid Interpretation Code [facility] Work Phone: [phone] Lab Report: Prothrombin Time w/INRon 03-26-2017 Prothrombin time (PT) Coag time (PPP) 24.2 s High 11.7-14.[address] [facility] Work Phone: [phone] Coumadin Management: Warfari n Calcon 02-19-2017 Coagulation tissue factor induced in platelet poor plasma 31.2 s Invalid Interpretation Code [facility] Work Phone: [phone] INR in blood by coagulation Hospital lab Invalid Interpretation Code [facility] Work Phone: [phone] INR in blood by coagulation 3.2 {INR} Invalid Interpretation Code [facility] Work Phone: [phone] INR in blood by coagulation 2 to 3 Invalid Interpretation Code [facility] Work Phone: [phone] Replaced Document: Prothromb in Time w/INRon 02-19-2017 Coagulation tissue factor induced in platelet poor plasma 31.4 s High 11.7-14.[address] [facility] Work Phone: [phone] Coumadin Management: Shankarana espinosa Calcon 02-10-2017 Coagulation tissue factor induced in platelet poor plasma 18.9 s Invalid Interpretation Code [facility] Work Phone: [phone] INR in blood by coagulation Hospital lab Invalid Interpretation Code [facility] Work Phone: [phone] INR in blood by coagulation 1.7 {INR} Invalid Interpretation Code [facility] Work Phone: [phone] INR in blood by coagulation 2 to 3 Invalid Interpretation Code [facility] Work Phone: [phone] Lab Report: Prothrombin Time w/INRon 02-10-2017 Coagulation tissue factor induced in platelet poor plasma 18.9 s High 11.7-14.9 [facility] Work Phone: [phone] Coumadin Management: Shankarana espinosa Calcon 01-08-2017 Coagulation tissue factor induced in platelet poor plasma 25.0 s Invalid Interpretation Code [facility] Work Phone: [phone] INR Coag RelTime (PPP) 2.4 {INR} [facility] Work Phone: [phone] INR in blood by coagulation Hospital lab Invalid Interpretation Code [facility] Work Phone: [phone] INR in blood by coagulation 2.4 {INR} Invalid Interpretation Code [facility] Work Phone: [phone] INR in blood by coagulation 2 to 3 Invalid Interpretation Code [facility] Work Phone: [phone] international normalized ratio (INR) range 2 to [address] [facility] Work Phone: [phone] Lab Report: Prothrombin Time w/INRon 01-08-2017 Coagulation tissue factor induced in platelet poor plasma 25 s High 11.7-14.9 [facility] Work Phone: [phone] Office Visiton 01-08-2017 Documentation of current medications (procedure) Done Invalid Interpretation Code [facility] Work Phone: [phone] Protein mass conc Done [facility] Work Phone: [phone] Coumadin Management: Warfari n Calcon 12-07-2016 Coagulation tissue factor induced in platelet poor plasma 22.0 s Invalid Interpretation Code [facility] Work Phone: [phone] INR Coag RelTime (PPP) 2.0 {INR} [facility] Work Phone: [phone] INR in blood by coagulation Hospital lab Invalid Interpretation Code [facility] Work Phone: [phone] INR in blood by coagulation 2.0 {INR} Invalid Interpretation Code [facility] Work Phone: [phone] INR in blood by coagulation 2 to 3 Invalid Interpretation Code [facility] Work Phone: [phone] international normalized ratio (INR) range 2 to 3 [facility] Work Phone: [phone] Lab Report: Prothrombin Time w/INRon 12-07-2016 Coagulation tissue factor induced in platelet poor plasma 22 s High 11.7-14.[address] [facility] Work Phone: [phone] Coumadin Management: Warfari n Calcon 11-25-2016 INR in blood by coagulation Hospital lab Invalid Interpretation Code [facility] Work Phone: [phone] INR in blood by coagulation 2.5 {INR} Invalid Interpretation Code [facility] Work Phone: [phone] INR in blood by coagulation 2 to 3 Invalid Interpretation Code [facility] Work Phone: [phone]) Lab Report: Prothrombin Time w/INRon 11-25-2016 Coagulation tissue factor induced in platelet poor plasma 25.7 s Invalid Interpretation Code [facility] Work Phone: [phone] Lab Report: Prothrombin Time w/INRon 11-12-2016 INR Coag RelTime (PPP) 2.0 {INR} [facility] Work Phone: [phone] Prothrombin time (PT) Coag time (PPP) 21.5 s High 11.7-14.[address] [facility] Work Phone: [phone] Coumadin Management: Narinder espinosa Calcon 11-02-2016 Coagulation tissue factor induced in platelet poor plasma 16.5 s [facility] Work Phone: [phone] INR in blood by coagulation Hospital lab [facility] Work Phone: [phone] INR in blood by coagulation 1.4 {INR} Invalid Interpretation Code [facility] Work Phone: [phone] INR in blood by coagulation 2 to 3 Invalid Interpretation Code [facility] Work Phone: [phone] international normalized ratio (INR) range 2 to 3 [facility] Work Phone: [phone] Lab Report: Prothrombin Time w/INRon 11-02-2016 Coagulation tissue factor induced in platelet poor plasma 16.5 s High 11.7-14.[address] [facility] Work Phone: [phone] Office Visit: [facility] 09-03-19 Documentation of current medications (procedure) Done Invalid Interpretation Code [facility] Work Phone: [phone] Fall risk assessment No Invalid Interpretation Code [facility] Work Phone: [phone] Protein mass conc Done [facility] Work Phone: [phone]) Clinical Lists Update: Prelo cadmium liquor maker 08-27-2016 Left ventricular Ejection fraction 50 % Invalid Interpretation Code [facility] Work Phone: [phone] Office Visiton 02-28-2016 Tobacco smoking status NHIS Tobacco smoking status NHIS Invalid Interpretation Code [facility] Work Phone: [phone] Tobacco smoking status NHIS Never smoker [facility] Work Phone: [phone] Tobacco use [facility] Never smoker Invalid Interpretation Code [facility] Work Phone: [phone] Lab Report: CBC W/Diff, Auto matedon 11-26-2014 Absolute Neut 2.1 X10 3/UL Invalid Interpretation Code 2.0-7.[address] [facility] Work Phone: [phone] Absolute Neutrophil count 2.1 X10 3/UL Invalid Interpretation Code 2.0-7.[address] [facility] Work Phone: Basophils/100 leukocytes 1.1 % High 0-1 [facility] Work Phone: [phone] Basophils/100 WBC (Bld) 1.1 % High 0-1 [facility] Work Phone: Eosinophils/100 leukocytes 5.3 % High 0-[address] [facility] Work Phone: Eosinophils/100 WBC (Bld) 5.3 % High 0-[address] [facility] Work Phone: [phone] Erythrocyte distribution width Ratio (RBC) 58.0 fL High 35.1-43.9 [facility] Work Phone: [phone] Erythrocyte distribution width Ratio (RBC) 16.7 % High 11.6-14.6 [facility] Work Phone: [phone] Erythrocytes (RBC) 3.72 10*6/uL Low 4.2-5.[address] [facility] Work Phone: [phone] Hematocrit (HCT) 37.1 % Invalid Interpretation Code 37-47 [facility] Work Phone: [phone] Hematocrit Volume Fraction (Bld) 37.1 % 37-47 [facility] Work Phone: [phone] Hemoglobin (HGB) 11.7 g/dL Low 12.0-15.[address] [facility] Work [phone] Immature granulocytes #/vol (Bld) 0.000 % 0.0-0.9 [facility] Work Phone: [phone] immature granulocytes, percentage of total cells, blood 0.000 % Invalid Interpretation Code 0.0-0.9 [facility] Work Phone: [phone] Immature granulocytes/100 WBC (Bld) 0.000 % Invalid Interpretation Code 0.0-0.9 [facility] Work Phone: [phone] Lymphocytes 1.54 X10 3/UL Invalid Interpretation Code 0.83-4.51 [facility] Work Phone: [phone] Lymphocytes #/vol (Bld) 1.54 X10 3/UL 0.83-4.51 [facility] Work Phone: [phone] Lymphocytes/100 leukocytes 35.2 % Invalid Interpretation Code 19-[address] [facility] Work Phone: [phone] Lymphocytes/100 WBC (Bld) 35.2 % 19-[address] [facility] Work Phone: [phone] MCH 31.5 pg Invalid Interpretation Code 27.0-32.0 [facility] Work Phone: [phone] MCH Entitic mass (RBC) 31.5 pg 27.0-32.0 [facility] Work Phone: [phone] MCHC 31.5 G/GL Low 32-[address] [facility] Work Phone: [phone] MCHC mass conc (RBC) 31.5 G/GL Low 32-[address] [facility] Work Phone: [phone] MCV 99.7 fL High 81-[address] [facility] Work Phone: [phone] MCV Entitic volume (RBC) 99.7 fL High 81-99 [facility] Work Phone: [phone] Monocytes/100 leukocytes 10.0 % Invalid Interpretation Code 0-[address] [facility] Work Phone: [phone] Monocytes/100 WBC (Bld) 10.0 % 0-10 [facility] Work Phone: [phone] Neutrophils/100 leukocytes 48.4 % Invalid Interpretation Code 47-70 [facility] Work Phone: [phone] Neutrophils/100 WBC (Bld) 48.4 % 47-[address] [facility] Work Phone: [phone] Platelet mean volume Entitic volume (Bld) 10.2 fL 6.2-12.[address] [facility] Work Phone: [phone] Platelets 265 10*3/mm3 Invalid Interpretation Code 150-450 [facility] Work Phone: [phone] Platelets #/vol (Bld) 265 10*3/mm3 150-450 [facility] Work Phone: [phone] PMV by Carrington-Mami 10.2 fL Invalid Interpretation Code 6.2-12.0 [facility] Phone: [phone] RBC #/vol (Bld) 3.72 10*6/uL Low 4.2-5.4 [facility] Work Phone: [phone] RDW SD 58.0 fL High 35.1-43.9 [facility] Work Phone: [phone] RDW-CA 16.7 % High 11.6-14.6 [facility] Work Phone: [phone] red blood cell distribution width, size density 58.0 fL High 35.1-43.9 [facility] Work Phone: [phone] WBC #/vol (Bld) 4.4 10*3/uL 4.4-11.0 [facility] Work Phone: [phone] WBC (Leukocytes) 4.4 10*3/uL Invalid Interpretation Code 4.4-11.0 [facility] Work Phone: [phone] Office Visit: [facility] 11-27-19 15 General cardiovascular disease 10Y risk [#] [place]ost[place] 8 % Invalid Interpretation Code [facility] Phone: [phone] Office Visit: [facility] 08-23-19 15 Tobacco smoking status NHIS Never Invalid Interpretation Code [facility] Phone: [phone] Office Visiton 04-25-2014 cardiac risk group B Invalid Interpretation Code [facility] Phone: [phone] Replaced Document: Anthony Phillips CG Observationson 04-25-2014 BUN (urea nitrogen) Sinus Rhythm -With r ate variation cv = 12.-Left bundle branch block and left axis. ABNORMAL Invalid Interpretation Code [facility] Phone: [phone] EKG QRS axis -47 deg Invalid Interpretation Code [facility] Work Phone: [phone] GE use only - for [employer] import when terms are not otherwise specified 456 ms Invalid Interpretation Code [facility] Phone: [phone] Interpretation Sinus Rhythm -With r ate variation cv = 12.-Left bundle branch block and left axis. ABNORMAL [facility] Work Phone: [phone] [place] 56 deg Invalid Interpretation Code [facility] Work Phone: [phone] P wave axis, electrocardiogram 56 deg Invalid Interpretation Code [facility] Work Phone: [phone] OR Interval 160 ms Invalid Interpretation Code [facility] Work Phone: [phone] OR interval, electrocardiogram 160 ms Invalid Interpretation Code [facility] Work Phone: [phone] Pulse (Heart Rate) 65 /min Invalid Interpretation Code [facility] Work Phone: [phone] QRS axis, electrocardiogram -47 deg Invalid Interpretation Code [facility] Work Phone: [phone] QRS Duration 148 ms Invalid Interpretation Code [facility] Work Phone: [phone] QRS duration, electrocardiogram 148 ms Invalid Interpretation Code [facility] Work Phone: [phone] QT Interval new path ms Invalid Interpretation Code [facility] Work Phone: [phone] QT interval, electrocardiogram new path ms Invalid Interpretation Code [facility] Work Phone: [phone] QTc Otto 456 ms Invalid Interpretation Code [facility] Work Phone: [phone] T [place] -1 deg Invalid Interpretation Code [facility] Work Phone: [phone] T wave axis, electrocardiogram -1 deg Invalid Interpretation Code [facility] Work Phone: [phone] Clinical Lists Update: Prelo cadmium liquor maker 03-14-2014 Albumin 4.1 g/dL Invalid Interpretation Code [facility] Work Phone: [phone] Albumin/Globulin Ratio 1.6 {ratio} Invalid Interpretation Code [facility] Work Phone: [phone] Anion gap 3 mmol/L Low [facility] Work Phone: [phone] Anion gap molar conc 3 mmol/L Low [facility] Work Phone: [phone] BUN/Creatinine Ratio 11.4 mg/mg Invalid Interpretation Code [facility] Work Phone: [phone] Calcium 9.5 mg/dL Invalid Interpretation Code [facility] Work Phone: [phone] Chloride 108 mmol/L High [facility] Work Phone: [phone] Cholesterol 201 mg/dL High [facility] Work Phone: [phone] CO2 30.0 mmol/L Invalid Interpretation Code [facility] Work Phone: [phone] CO2 ppres (BldV) 30.0 mmol/L [facility] Work Phone: [phone] Creatinine 0.7 mg/dL Invalid Interpretation Code [facility] Work Phone: [phone] eGFR (non-black) 108 mL/min/{1.73_m2} Invalid Interpretation Code [facility] Work Phone: [phone] eGFR (non-black) 89 mL/min/{1.73_m2} Invalid Interpretation Code [facility] Work Phone: [phone] Globulin 2.5 g/dL Invalid Interpretation Code [facility] Work Phone: [phone] Globulin mass conc (S) 2.5 g/dL [facility] Work Phone: [phone] Glomerular Filtration Rate 108 mL/min/1.73m2 [facility] Work Phone: [phone] Glucose 81 mg/dL Invalid Interpretation Code [facility] Work Phone: [phone] Glucose mass conc 81 mg/dL Invalid Interpretation Code [facility] Work Phone: [phone] HDL Cholesterol 74 mg/dL Invalid Interpretation Code [facility] Work Phone: [phone] LDL Cholesterol 116 mg/dL Invalid Interpretation Code [facility] Work Phone: [phone] Potassium 4.4 mmol/L Invalid Interpretation Code [facility] Work Phone: [phone] Protein 6.6 g/dL Invalid Interpretation Code [facility] Work Phone: [phone] Sodium 141 mmol/L Invalid Interpretation Code [facility] Work Phone: [phone] Triglyceride 55 mg/dL Invalid Interpretation Code [facility] Work Phone: [phone] Urea nitrogen 8 mg/dL Invalid Interpretation Code [facility] Work Phone: [phone] very low density lipoproteins 11 mg/dL Invalid Interpretation Code [facility] Work Phone: Vital Signs Date Time Vital Sign Value Performing Clinician Tosha albert 11-06-2024 17:04-0400 Body temperature 98.6 [degF] Lynette Micheal [employer]IRE STRAIGHTENER[employer]C Work Phone: [facility] 11-06-2024 17:04-0400 Diastolic blood pressure 44 mm[Hg] Lynette Micheal [employer] STRAIGHT[employer]C Work Phone: [facility] 11-06-2024 17:04-0400 Heart rate 70 /min Lynette Micheal [employer] STRA[employer] Work Phone: [facility] 11-06-2024 17:04-0400 Respiratory rate 16 /min Lynette Micheal [employer] STRA[employer] Work Phone: [facility] 11-06-2024 17:04-0400 SaO2% (BldA) [Mass fraction] 98 % Lynette Micheal [employer] STRA[employer]C Work Phone: [facility] 11-06-2024 17:04-0400 Systolic blood pressure 107 mm[Hg] Lynette Micheal W[employer] STRAIGHTENER[employer]C Work Phone: [facility] 11-06-2024 13:31-0400 Body height 162.56 cm Lynette Micheal [employer] STRA[employer]ENER[employer]C Work Phone: [facility] 11-06-2024 13:31-0400 Body mass index (BMI) [Ratio] 24.2 kg/m2 Lynette Micheal [employer] STRA[employer] Work Phone: [facility] 11-06-2024 13:31-0400 Body weight 63.95 kg Lynette Micheal [employer] STRA[employer] Work Phone: [facility] 11-03-2024 07:27-0400 Body temperature 98.1 [degF] Lynette Micheal [employer] STRA[employer]C Work Phone: [facility] 11-03-2024 07:27-0400 Diastolic blood pressure 53 mm[Hg] Lynette Micheal W[employer] STRA[employer]C Work Phone: [facility] 11-03-2024 07:27-0400 Heart rate 67 /min Lynette Micheal W[employer] STRA[employer]ENER[employer]C Work Phone: [facility] 11-03-2024 07:27-0400 Respiratory rate 16 /min Lynette Micheal [employer] STRA[employer] Work Phone: [facility] 11-03-2024 07:27-0400 SaO2% (BldA) [Mass fraction] 92 % Lynette Micheal [employer] STRA[employer] Work Phone: [facility] 11-03-2024 07:27-0400 Systolic blood pressure 111 mm[Hg] Lynette Micheal [employer] STRA[employer]ENER[employer]C Work Phone: [facility] 11-03-2024 02:48-0400 Body height 162.56 cm Lynette Micheal [employer] STRA[employer] Work Phone: [facility] 11-03-2024 02:48-0400 Body mass index (BMI) [Ratio] 26.1 kg/m2 Lynette Micheal [employer] STRA[employer] Work Phone: [facility] 11-03-2024 02:48-0400 Body weight 69.1 kg Lynette Micheal W[employer] STRA[employer] Work Phone: [facility] 11-02-2024 15:03-0400 Body temperature 97.8 [degF] Lynette Micheal [employer] STRA[employer] Work Phone: [facility] 11-02-2024 15:03-0400 Diastolic blood pressure 62 mm[Hg] Lynette Micheal W[employer] STRA[employer] Work Phone: [facility] 11-02-2024 15:03-0400 Heart rate 78 /min Lynette Micheal [employer] STRA[employer] Work Phone: [facility] 11-02-2024 15:03-0400 Respiratory rate 15 /min Lynette Micheal [employer] STRA[employer] Work Phone: [facility] 11-02-2024 15:03-0400 SaO2% (BldA) [Mass fraction] 99 % Lynette Micheal [employer] STRA[employer] Work Phone: [facility] 11-02-2024 15:03-0400 Systolic blood pressure 124 mm[Hg] Lynette Burton [employer] STRA[employer]ENER[employer]C Work Phone: [facility] 11-02-2024 10:56-0400 Body height 162.56 cm Lynette Burton W[employer] STRA[employer]ENER[employer] Work Phone: [facility] 11-02-2024 10:56-0400 Body mass index (BMI) [Ratio] 26.8 kg/m2 Lynette Burton W[employer] STRA[employer] Work Phone: [facility] 11-02-2024 10:56-0400 Body weight 70.9 kg Lynette Burton W[employer] STRA[employer] Work Phone: [facility] 10-28-2024 20:57-0400 Body mass index (BMI) [Ratio] 23.6 kg/m2 Lynette Burton W[employer] STRAIGHTENER[employer]C Work Phone: [facility] 10-26-2024 13:23-0400 Diastolic blood pressure 59 mm[Hg] Dr. Michaela Mcfadden DO Work Phone: [facility] 10-26-2024 13:23-0400 Heart rate 79 /min Dr. Michaela Mcfadden DO Work Phone: [facility] 10-26-2024 13:23-0400 Respiratory rate 16 /min Dr. Michaela Mcfadden DO Work Phone: [facility] 10-26-2024 13:23-0400 Systolic blood pressure 114 mm[Hg] Dr. Michaela Mcfadden DO Work Phone: [facility] 10-05-2024 13:01-0400 Body temperature 97.6 [degF] Dr. Michaela Mcfadden DO Work Phone: [facility] 09-27-2024 20:51-0400 Body mass index (BMI) [Ratio] 23.6 kg/m2 Dr. Michaela Mcfadden DO Work Phone: [facility] 09-14-2024 13:18-0400 Body temperature 96.7 [degF] Dr. Michaela Mcfadden DO Work Phone: [facility] 09-14-2024 13:18-0400 Diastolic blood pressure 59 mm[Hg] Dr. Michaela Mcfadden DO Work Phone: [facility] 09-14-2024 13:18-0400 Heart rate 77 /min Dr. Michaela Mcfadden DO Work Phone: [facility] 09-14-2024 13:18-0400 Respiratory rate 18 /min Dr. Michaela Mcfadden DO Work Phone: [facility] 09-14-2024 13:18-0400 Systolic blood pressure 137 mm[Hg] Dr. Michaela Mcfadden DO Work Phone: [facility] 08-30-2024 07:35-0400 Body mass index (BMI) [Ratio] 24 kg/m2 Dr. Michaela Mcfadden DO Work Phone: [facility] 08-30-2024 07:35-0400 Body weight 63.[address] Michaela Mcfadden DO Work Phone: [facility] 08-30-2024 07:35-0400 Diastolic blood pressure 60 mm[Hg] Dr. Michaela Mcfadden DO Work Phone: [facility] 08-30-2024 07:35-0400 Heart rate 66 /min Dr. Michaela Mcfadden DO Work Phone: [facility] 08-30-2024 07:35-0400 Respiratory rate 18 /min Dr. Michaela Mcfadden DO Work Phone: [facility] 08-30-2024 07:35-0400 SaO2% (BldA) [Mass fraction] 98 % Dr. Michaela Mcfadden DO Work Phone: [facility] 08-30-2024 07:35-0400 Systolic blood pressure 110 mm[Hg] Dr. Michaela Mcfadden DO Work Phone: [facility] 08-28-2024 22:00-0400 Body mass index (BMI) [Ratio] 23.6 kg/m2 Dr. Michaela Mcfadden DO Work Phone: [facility] 08-17-2024 13:03-0400 Body temperature 97.1 [degF] Lynette Micheal W[employer] STRAIGHTENER[employer] Work Phone: [facility] 08-17-2024 13:03-0400 Diastolic blood pressure 56 mm[Hg] Lynette Micheal [employer] STRA[employer] Work Phone: [facility] 08-17-2024 13:03-0400 Heart rate 74 /min Lynette Micheal [employer] Work Phone: [facility] 08-17-2024 13:03-0400 Respiratory rate 14 /min Lynette Micheal [employer] STRA[employer] Work Phone: [facility] 08-17-2024 13:03-0400 Systolic blood pressure 117 mm[Hg] Lynette Micheal [employer] STRA[employer] Work Phone: [facility] 07-29-2024 03:57-0500 Body mass index (BMI) [Ratio] 23.6 kg/m2 Lynette Micheal [employer] Work Phone: [facility] 07-27-2024 13:26-0500 Body temperature 97 [degF] Lynette Micheal W[employer] STRA[employer] Work Phone: [facility] 07-27-2024 13:26-0500 Diastolic blood pressure 75 mm[Hg] Lynette Micheal W[employer] STRA[employer]ENER[employer] Work Phone: [facility] 07-27-2024 13:26-0500 Heart rate 69 /min Lynette Micheal [employer] STRA[employer] Work Phone: [facility] 07-27-2024 13:26-0500 Respiratory rate 18 /min Lynette Micheal [employer] STRA[employer] Work Phone: [facility] 07-27-2024 13:26-0500 Systolic blood pressure 115 mm[Hg] Lynette Micheal W[employer] STRA[employer]ENER[employer] Work Phone: [facility] 07-01-2024 01:26-0500 Body mass index (BMI) [Ratio] 23.6 kg/m2 Lynette Micheal [employer] STRA[employer] Work Phone: [facility] 06-22-2024 13:10-0500 Body temperature 96.8 [degF] Lynette Micheal W[employer] STRA[employer] Work Phone: [facility] 06-22-2024 13:10-0500 Diastolic blood pressure 49 mm[Hg] Lynette Michela [employer] STRA[employer]ENER[employer] Work Phone: [facility] 06-22-2024 13:10-0500 Heart rate 74 /min Lynette Micheal W[employer] STRA[employer] Work Phone: [facility] 06-22-2024 13:10-0500 Respiratory rate 18 /min Lynette Micheal [employer] STRA[employer] Work Phone: [facility] 06-22-2024 13:10-0500 Systolic blood pressure 130 mm[Hg] Lynette Micheal W[employer] STRA[employer] Work Phone: [facility] 05-31-2024 04:18-0500 Body mass index (BMI) [Ratio] 23.6 kg/m2 Lynette Micheal [employer] STRA[employer] Work Phone: [facility] 05-18-2024 13:32-0500 Body temperature 97 [degF] Lynette Micheal W[employer] STRA[employer] Work Phone: [facility] 05-18-2024 13:32-0500 Diastolic blood pressure 51 mm[Hg] Lynette Micheal W[employer] STRA[employer]ENER[employer] Work Phone: [facility] 05-18-2024 13:32-0500 Heart rate 72 /min Lynette Micheal W[employer] STRA[employer]ENER[employer] Work Phone: [facility] 05-18-2024 13:32-0500 Respiratory rate 18 /min Lynette Micheal W[employer] STRA[employer]ENER[employer] Work Phone: [facility] 05-18-2024 13:32-0500 Systolic blood pressure 111 mm[Hg] Lynette Micheal W[employer] STRA[employer] Work Phone: [facility] 04-29-2024 23:14-0500 Body mass index (BMI) [Ratio] 23.6 kg/m2 Lynette Micheal [employer] STRA[employer]ENER[employer] Work Phone: [facility] 09-13-2023 11:03-0400 Body height 162.[address] Karissa Madrid Work Phone: [facility] 09-13-2023 11:03-0400 Body weight 60.[address] Karissa Madrid Work Phone: [facility] 09-10-2023 08:49-0400 Body mass index (BMI) [Ratio] 23 kg/m2 Dr. Karissa Madrid Work Phone: [facility] 08-24-2023 09:26-0400 Body height 162.[address] Karissa Madrid Work Phone: [facility] 08-24-2023 09:26-0400 Body mass index (BMI) [Ratio] 23 kg/m2 Dr. Karissa Madrid Work Phone: [facility] 08-24-2023 09:26-0400 Body weight 60.[address] Karissa Madrid Work Phone: [facility] 08-24-2023 09:26-0400 Respiratory rate 16 /min Dr. Karissa Madrid Work Phone: [facility] 06-30-2023 21:58-0500 Body mass index (BMI) [Ratio] 23.6 kg/m2 Dr. Karissa Madrid Work Phone: [facility] 05-30-2023 20:38-0500 Body mass index (BMI) [Ratio] 23.6 kg/m2 Dr. Karissa Madrid Work Phone: [facility] 04-30-2023 03:30-0500 Body mass index (BMI) [Ratio] 23.6 kg/m2 Dr. Karissa Madrid Work Phone: [facility] 03-30-2023 23:18-0400 Body mass index (BMI) [Ratio] 23.6 kg/m2 Dr. Karissa Madrid Work Phone: [facility] 02-28-2023 02:03-0400 Body mass index (BMI) [Ratio] 23.6 kg/m2 Dr. Karissa Madrid Work Phone: [facility] 01-28-2023 22:35-0400 Body mass index (BMI) [Ratio] 23.6 kg/m2 Dr. Karissa Madrid Work Phone: [facility] 12-29-2022 00:31-0400 Body mass index (BMI) [Ratio] 23.6 kg/m2 Dr. Karissa Madrid Work Phone: [facility] 11-27-2022 21:58-0400 Body mass index (BMI) [Ratio] 23.6 kg/m2 Dr. Karissa Madrid Work Phone: [facility] 11-24-2022 10:01-0400 Body weight 60.[address] Karissa Madrid Work Phone: [facility] 11-24-2022 10:01-0400 Diastolic blood pressure 79 mm[Hg] Dr. Karissa Madrid Work Phone: [facility] 11-24-2022 10:01-0400 Heart rate 63 /min Dr. Karissa Madrid Work Phone: [facility] 11-24-2022 10:01-0400 Respiratory rate 22 /min Dr. Karissa Madrid Work Phone: [facility] 11-24-2022 10:01-0400 Systolic blood pressure 134 mm[Hg] Dr. Karissa Madrid Work Phone: [facility] 11-24-2022 09:04-0400 Body height 162.[address] Karissa Madrid Work Phone: [facility] 11-13-2022 07:55-0400 Body mass index (BMI) [Ratio] 23.9 kg/m2 Dr. Karissa Madrid Work Phone: [facility] 11-13-2022 07:55-0400 Body temperature 97.4 [degF] Dr. Karissa Madrid Work Phone: [facility] 11-13-2022 07:55-0400 Body weight 63.[address] Karissa Madrid Work Phone: [facility] 11-13-2022 07:55-0400 Diastolic blood pressure 79 mm[Hg] Dr. Karissa Madrid Work Phone: [facility] 11-13-2022 07:55-0400 Heart rate 63 /min Dr. Karissa Madrid Work Phone: [facility] 11-13-2022 07:55-0400 Respiratory rate 18 /min Dr. Karissa Madrid Work Phone: [facility] 11-13-2022 07:55-0400 SaO2% (BldA) [Mass fraction] 95 % Dr. Karissa Madrid Work Phone: [facility] 11-13-2022 07:55-0400 Systolic blood pressure 152 mm[Hg] Dr. Karissa Madrid Work Phone: [facility] 10-29-2022 08:44-0400 Body mass index (BMI) [Ratio] 23.6 kg/m2 Dr. Karissa Madrid Work Phone: [facility] 09-27-2022 01:13-0400 Body mass index (BMI) [Ratio] 23.6 kg/m2 Dr. Karissa Madrid Work Phone: [facility] 08-29-2022 00:08-0400 Body mass index (BMI) [Ratio] 23.6 kg/m2 Dr. Karissa Madrid Work Phone: [facility] 07-28-2022 20:01-0500 Body mass index (BMI) [Ratio] 23.6 kg/m2 Dr. Karissa Madrid Work Phone: [facility] 05-31-2022 02:03-0500 Body mass index (BMI) [Ratio] 23.6 kg/m2 Dr. Michaela Mcfadden Work Phone: [facility] 04-30-2022 08:44-0500 Body height 162.[address] Michaela Mcfadden Work Phone: [facility] 04-30-2022 08:42-0500 Body mass index (BMI) [Ratio] 23.5 kg/m2 Dr. Michaela Mcfadden Work Phone: [facility] 04-30-2022 08:42-0500 Body weight 62.[address] Michaela Mcfadden Work Phone: [facility] 04-30-2022 08:42-0500 Diastolic blood pressure 71 mm[Hg] Dr. Michaela Mcfadden Work Phone: [facility] 04-30-2022 08:42-0500 Heart rate 60 /min Dr. Michaela Mcfadden Work Phone: [facility] 04-30-2022 08:42-0500 Respiratory rate 18 /min Dr. Michaela Mcfadden Work Phone: [facility] 04-30-2022 08:42-0500 SaO2% (BldA) [Mass fraction] 95 % Dr. Michaela Mcfadden Work Phone: [facility] 04-30-2022 08:42-0500 Systolic blood pressure 128 mm[Hg] Dr. Michaela Mcfadden Work Phone: [facility] 04-29-2022 23:02-0500 Body mass index (BMI) [Ratio] 23.6 kg/m2 Dr. Michaela Mcfadden Work Phone: [facility] 03-31-2022 09:49-0400 Body mass index (BMI) [Ratio] 23.6 kg/m2 [facility] 02-27-2022 21:19-0400 Body mass index (BMI) [Ratio] 23.6 kg/m2 [facility] Work Phone: 01-28-2022 22:52-0400 Body mass index (BMI) [Ratio] 23.6 kg/m2 [facility] Work Phone: 12-28-2021 02:14-0400 Body mass index (BMI) [Ratio] 23.6 kg/m2 [facility] Work Phone: 11-28-2021 06:54-0400 Body mass index (BMI) [Ratio] 23.6 kg/m2 Dr. Michaela Mcfadden Work Phone: [facility] Work Phone: 10-28-2021 20:37-0400 Body mass index (BMI) [Ratio] 23.6 kg/m2 Dr. Michaela Mcfadden Work Phone: [facility] Work Phone: 10-21-2021 08:47-0400 Body height 162.[address] Michaela Mcfadden Work Phone: [facility] Work Phone: 10-21-2021 08:47-0400 Body mass index (BMI) [Ratio] 23.3 kg/m2 Dr. Michaela Mcfadden Work Phone: [facility] Work Phone: 10-21-2021 08:47-0400 Body weight 61.[address] Michaela Mcfadden Work Phone: [facility] Work Phone: 10-21-2021 08:47-0400 Diastolic blood pressure 63 mm[Hg] Dr. Michaela Mcfadden Work Phone: [facility] Work Phone: 10-21-2021 08:47-0400 Heart rate 60 /min Dr. Michaela Mcfadden Work Phone: [facility] Work Phone: 10-21-2021 08:47-0400 Respiratory rate 18 /min Dr. Michaela Mcfadden Work Phone: [facility] Work Phone: 10-21-2021 08:47-0400 SaO2% (BldA) [Mass fraction] 99 % Dr. Michaela Mcfadden Work Phone: [facility] Work Phone: 10-21-2021 08:47-0400 Systolic blood pressure 130 mm[Hg] Dr. Michaela Mcfadden Work Phone: [facility] Work Phone: 10-21-2021 08:47-0400 Body height 162.[address] Michaela Mcfadden Work Phone: [facility] Work Phone: 10-21-2021 08:47-0400 Body mass index (BMI) [Ratio] 23.3 kg/m2 Dr. Michaela Mcfadden Work Phone: [facility] Work Phone: 10-21-2021 08:47-0400 Body weight 61.[address] Michaela Mcfadden Work Phone: [facility] Work Phone: 10-21-2021 08:47-0400 Diastolic blood pressure 63 mm[Hg] Dr. Michaela Mcfadden Work Phone: [facility] Work Phone: 10-21-2021 08:47-0400 Heart rate 60 /min Dr. Michaela Mcfadden Work Phone: [facility] Work Phone: 10-21-2021 08:47-0400 Respiratory rate 18 /min Dr. Michaela Mcfadden Work Phone: [facility] Work Phone: 10-21-2021 08:47-0400 SaO2% (BldA) [Mass fraction] 99 % Dr. Michaela Mcfadden Work Phone: [facility] Work Phone: 10-21-2021 08:47-0400 Systolic blood pressure 130 mm[Hg] Dr. Michaela Mcfadden Work Phone: [facility] Work Phone: 09-28-2021 03:17-0400 Body mass index (BMI) [Ratio] 23.6 kg/m2 Dr. Michaela Mcfadden Work Phone: [facility] Work Phone: 08-29-2021 01:41-0400 Body mass index (BMI) [Ratio] 23.6 kg/m2 [facility] Work Phone: 07-29-2021 09:37-0500 Body mass index (BMI) [Ratio] 23.6 kg/m2 Dr. Michaela Mcfadden Work Phone: [facility] Work Phone: 07-29-2021 08:37-0500 Body mass index (BMI) [Ratio] 23.6 kg/m2 [facility] Work Phone: 06-30-2021 21:53-0500 Body mass index (BMI) [Ratio] 23.6 kg/m2 [facility] Work Phone: 06-01-2021 03:05-0500 Body mass index (BMI) [Ratio] 23.6 kg/m2 [facility] Work Phone: 04-30-2021 01:17-0500 Body mass index (BMI) [Ratio] 23.6 kg/m2 [facility] Work Phone: 01-08-2017 07:38-0400 BMI (Body Mass Index) 24.46 kg/m2 Ashly Schreiber RN [facility] Work Phone: 01-08-2017 07:38-0400 BP [...] Surface Area) 1.78 m2 Ashly Schreiber RN [facility] Work Phone: 02-28-2016 09:44-0400 Pulse Oximetry 98 % Ashly Schreiber RN [facility] Work Phone: 04-25-2014 10:22-0500 Heart rate 65 /min Ashly Schreiber RN [facility] Work Phone: Encounters Encounter Date Encounter Type Care Provider Facility Start: 11-06-2024 Evaluation and management of inpatient Dr. Shelton Parra DO -Progressive Care Unit Work Phone: Start: 11-06-[address] Anupam Lizarraga MD -Laboratory Work Phone: Start: 11-03-2024 End: 11-03-2024 Emergency department patient visit [facility] Facility:[facility] Start: 11-02-2024 End: 11-02-2024 Emergency department patient visit [facility] Facility:[facility] Start: 10-29-2024 ambulatory [facility] Facility:[facility] Start: 10-26-2024 Non-patient / Non-visit Zarina MUNGUIA -[facility] Start: 10-26-2024 End: 10-26-[address] Michaela Mcfadden DO Work Phone: [facility] Work Phone: Start: 10-26-2024 End: 10-26-2024 Discharged Recurring Zarina MUNGUIA [facility] Work Phone: Start: 10-05-2024 End: 10-05-[address] Anupam Lizarraga MD -Laboratory Work Phone: Start: 10-05-[address] Anupam Lizarraga MD -Laboratory Work Phone: Start: 10-05-2024 End: 10-05-[address] Michaela Mcfadden DO Work Phone: [facility] Work Phone: Start: 10-05-2024 Non-patient / Non-visit Zarina Fish PA -[facility] Start: 09-14-2024 Non-patient / Non-visit Zarina Fish PA -[facility] Start: 09-14-2024 End: 09-27-2024 ambulatory [facility] Facility:[facility] Start: 09-14-2024 End: 09-27-2024 Discharged Recurring Zarina Fish [place] -[facility] Work Phone: Start: 09-11-2024 End: 09-11-2024 ambulatory [facility] Facility:[facility] Start: 09-11-2024 End: 09-11-[address] Anupam Lizarraga MD -[facility] Work Phone: Start: 08-31-2024 ambulatory Zarina Fish [facility] Start: 08-31-2024 Non-patient / Non-visit Zarina Fish PA -[facility] Start: 08-30-2024 End: 08-30-2024 ambulatory [facility] Facility:[facility] Start: 08-30-2024 End: 08-30-[address] Anupam Lizarraga MD -[facility] Work Phone: Start: 08-17-2024 Non-patient / Non-visit Zarina Fish PA -[facility] Start: 08-17-2024 End: 08-28-2024 [facility] [employer] Work Phone: [facility] Work Phone: Start: 08-17-2024 End: 08-28-[address] Anupam Lizarraga MD -Laboratory Work Phone: Start: 08-17-2024 Registered Recurring Zarina Fish [facility] Work Phone: Start: 08-10-2024 ambulatory [facility] Facility:[facility] Start: 08-10-2024 Non-patient / Non-visit Zarina Fish PA -[facility] Start: 07-27-2024 Non-patient / Non-visit Zarinamonae Fish PA -[facility] Start: 07-27-2024 End: 07-28-2024 [facility] Facility:[facility] Start: 07-27-2024 End: 07-28-2024 Discharged Recurring Zarina Fish [facility] -[facility] Work Phone: Start: 07-20-2024 ambulatory [facility] Facility:[facility] Start: 07-20-2024 Non-patient / Non-visit Zarina Fish PA -[facility] Start: 07-12-2024 ambulatory [facility] Facility:[facility] Start: 07-12-2024 Non-patient / Non-visit Juanita Jacobsen WIRE STRAIGHTENER-C -[facility] Start: 07-06-2024 [facility] Facility:[facility] Start: 07-06-2024 Non-patient / Non-visit Zarina Fish PA -[facility] Start: 06-30-2024 End: 06-30-2024 [facility] Facility:[facility] Start: 06-30-2024 End: 06-30-[address] Anupam Lizarraga MD -Laboratory Work Phone: Start: 06-22-2024 Non-patient / Non-visit Zarina Fish PA -[facility] Start: 06-22-2024 End: 06-30-2024 [facility] Facility:[facility] Start: 06-22-2024 End: 06-30-2024 Discharged Recurring Zarina Fish [facility] Work Phone: Start: 06-12-2024 End: 06-12-2024 ambulatory [facility] Facility:[facility] Start: 06-12-2024 End: 06-12-[address] Anupam Lizarraga MD -[facility] Work Phone: Start: 06-01-2024 [facility] Facility:[facility] Start: 01-02-2025 Non-patient / Non-visit Zarina Farfanhn PA -[facility] Start: 05-18-2024 Non-patient / Non-visit Zarina Farfanhn PA -[facility] Start: 05-18-2024 End: 05-30-2024 Discharged Recurring Zarina Farfankady MUNGUIA -[facility] Work Phone: Start: 05-18-2024 End: 05-30-2024 ambulatory Winfield Micheal Facility:[facility] Start: 05-11-2024 ambulatory Winfield Micheal Facility:[facility] Start: 05-11-2024 Non-patient / Non-visit Zarina Farfanhn PA -[facility] Start: 05-05-2024 ambulatory Winfield Micheal Facility:[facility] Start: 05-05-2024 Non-patient / Non-visit Zarina Farfanhn PA -[facility] Start: 05-03-2024 ambulatory Winfield Micheal [facility] Start: 05-02-2024 ambulatory Winfield Micheal [facility] Start: 05-02-2024 Non-patient / Non-visit Dr. Stan De Luna MD -[facility] Start: 05-02-2024 End: 05-02-[address] Stan De Luna MD -Cardiovascular Services Work Phone: Start: 05-02-2024 End: 05-02-2024 ambulatory Winfield Micheal Facility:[facility] Start: 04-26-2024 End: 04-29-2024 ambulatory Winfield Micheal Facility:[facility] Start: 04-13-2024 ambulatory Zarina Fish [facility] Start: 04-06-2024 ambulatory [facility]ield Micheal [facility] Start: 03-30-2024 ambulatory [place] Micheal [facility] Start: 03-30-2024 End: 03-30-2024 ambulatory Winfield Micheal Facility:[facility] Start: 03-24-2024 End: 03-24-2024 ambulatory Winfield Micheal Facility:[facility] Start: 03-20-2024 End: 03-20-2024 ambulatory Winfield Micheal Facility:[facility] Start: 03-20-2024 End: 03-20-2024 ambulatory Lynette Micheal Facility:[facility] Start: 03-13-2024 End: 03-13-2024 ambulatory Lynette Micheal Facility:[facility] Start: 03-06-2024 ambulatory Lynette Micheal [facility] Start: 03-06-2024 ambulatory Lynette Micheal [facility] Start: 03-06-2024 End: 03-06-2024 ambulatory Lynette Micheal Facility:[facility] Start: 02-23-2024 End: 02-23-2024 ambulatory Lynette Micheal [facility] Start: 02-23-2024 End: 02-23-2024 ambulatory Lynette Micheal Facility:[facility] Start: 01-26-2024 End: 01-26-2024 ambulatory Lynette Micheal [facility] Start: 01-12-2024 End: 01-12-2024 Emergency department patient visit [facility] Facility:[facility] Start: 01-11-2024 End: 01-11-2024 ambulatory Winfield Micheal Facility:[facility] Start: 12-17-2023 End: 12-29-2023 ambulatory Tyler Zia Facility:[facility] Start: 12-13-2023 End: 12-13-2023 ambulatory Lynette Micheal [facility] Start: 11-11-2023 End: 11-11-2023 ambulatory Anupam Zia Facility:[facility] Start: 09-13-2023 End: 09-13-2023 Admission to same day surgery center Dr. Karissa Madrid Work Phone: [facility]-Senior Brand Manager/Special Procedures Work Phone: Start: 09-13-2023 End: 09-13-[address] Karissa Madrid Work Phone: [facility] Work Phone: Start: 08-24-2023 End: 08-24-[address] Karissa Madrid Work Phone: [facility] Work Phone: Start: 08-24-2023 End: 08-24-[address] Karissa Madrid Work Phone: [facility] Work Phone: Start: 08-24-2023 End: 08-24-[address] Karissa Madrid Work Phone: [facility]-Radiology, [facility] Work Phone: Start: 08-24-2023 End: 08-24-[address] Karissa Madrid Work Phone: [facility] Work Phone: Start: 07-29-2023 End: 07-29-[address] Karissa Madrid Work Phone: [facility] Work Phone: Start: 07-29-2023 End: 07-29-[address] [facility] Start: 06-16-2023 End: 06-16-[address] Karissa Madrid Work Phone: [facility] Work Phone: Start: 06-16-2023 End: 06-16-[address] Kar[facility] Start: 06-02-2023 End: 06-02-[address] Karissa Madrid Work Phone: [facility] Work Phone: Start: 04-30-2023 End: 05-30-[address] Karissa Madrid Work Phone: [facility] Work Phone: Start: 04-30-2023 End: 05-30-[address] Kar[facility] Start: 04-21-2023 End: 04-29-[address] Karissa Madrid Work Phone: [facility] Work Phone: Start: 04-21-2023 End: 04-29-[address] Kar[facility] Madrid [facility] Start: 03-25-2023 End: 03-25-[address] Kar[facility] Start: 02-22-2023 End: 02-22-[address] Karissa Madrid Work Phone: [facility] Work Phone: Start: 02-22-2023 End: 02-22-[address] Karissa Madrid [facility] Start: 02-22-2023 End: 02-22-[address] Karissa Madrid Work Phone: [facility] Work Phone: Start: 01-21-2023 End: 01-21-[address] Karissa Madrid Work Phone: [facility] Work Phone: Start: 01-21-2023 End: 01-21-[address] Kar[facility] Madrid [facility] Start: 12-18-2022 End: 12-28-[address] Karissa Madrid Work Phone: [facility] Work Phone: Start: 12-18-2022 End: 12-28-[address] Kar[facility] Madrid [facility] Start: 11-24-[address] Karissa Madrid Work Phone: [facility] Start: 11-24-2022 End: 11-24-[address] Karissa Madrid Work Phone: [facility] Work Phone: Start: 11-24-2022 End: 11-24-[address] Karissa Madrid Work Phone: [facility] Work Phone: Start: 11-24-[address] Wilcox in [place] Work Phone: [facility] Work Phone: Start: 11-24-2022 End: 11-24-2022 Admission to same day surgery center Dr. Karissa Madrid Work Phone: [facility] Start: 11-24-2022 End: 11-24-[address] Karissa Madrid Work Phone: [facility] Work Phone: Start: 11-24-2022 End: 11-24-[address] Karissa Madrid Work Phone: [facility] Work Phone: Start: 11-13-2022 End: 11-13-[address] Karissa Madrid Work Phone: [facility] Work Phone: Start: 10-22-2022 End: 10-28-[address] Karissa Madrid Work Phone: [facility] Work Phone: Start: 10-22-2022 End: 10-28-[address] [facility] Start: 10-09-2022 End: 10-09-[address] Karissa Madrid Work Phone: [facility] Start: 09-30-2022 End: 09-30-[address] Karissa Madrid Work Phone: [facility] Work Phone: Start: 09-30-2022 End: 09-30-[address] Karissa Madrid Work Phone: [facility] Start: 09-17-2022 End: 09-27-[address] Karissa Madrid Work Phone: [facility] Work Phone: Start: 09-17-2022 End: 09-27-[address] Karissa Madrid [facility] Start: 09-04-2022 End: 09-04-[address] Karissa Madrid Work Phone: [facility] Work Phone: Start: 09-04-2022 End: 09-04-[address] Karissa Madrid Work Phone: [facility] Start: 09-04-2022 End: 09-04-[address] Karissa Madrid Work Phone: [facility] Start: 08-20-2022 End: 08-28-[address] Karissa Madrid Work Phone: [facility] Work Phone: Start: 08-20-2022 End: 08-28-[address] Karissa Madrid [facility] Start: 07-13-2022 End: 07-13-[address] Michaela Mcfadden Work Phone: [facility] Work Phone: Start: 07-13-2022 End: 07-13-[address] Michaela Mcfadden Work Phone: [facility] Start: 05-29-2022 End: 05-29-[address] Michaela Mcfadden Work Phone: [facility] Work Phone: Start: 05-29-2022 End: 05-29-[address] Michaela Mcfadden Work Phone: [facility] Start: 05-27-2022 End: 05-28-[address] [facility]: Start: 05-27-2022 End: 05-27-2022 Patient encounter procedure LOU BURTON [facility] Start: 05-15-[address] Michaela Mcfadden Work Phone: [facility] Start: 05-15-2022 Non-patient / Non-visit Dr. Michaela Mcfadden Work Phone: [facility] Start: 05-15-2022 End: 05-15-[address] Michaela Mcfadden Work Phone: [facility] Work Phone: Start: 05-15-2022 End: 05-15-[address] Michaela Mcfadden Work Phone: [facility] Start: 04-30-2022 End: 04-30-[address] Michaela Mcfadden Work Phone: [facility] Start: 04-15-2022 End: 04-29-2022 [facility] Work Phone: Start: 04-15-2022 End: 04-29-2022 [facility] Start: 03-05-2022 End: 03-05-2022 Discharged Recurring [facility] Start: 02-04-2022 End: 02-04-2022 ambulatory [facility] Work Phone: Start: 02-04-2022 End: 02-04-2022 Discharged Recurring [facility] Start: 01-05-2022 End: 01-05-2022 Discharged Recurring [facility] Start: 12-05-2021 End: 12-28-[address] Michaela Mcfadden Work Phone: [facility] Start: 11-17-2021 End: 11-17-[address] Michaela Mcfadden Work Phone: [facility] Start: 10-21-2021 End: 10-21-[address] Michaela Mcfadden [facility] Start: 10-21-2021 End: 10-21-[address] Michaela Mcfadden Work Phone: [facility] Start: 09-25-2021 End: 09-25-2021 Discharged Recurring [facility] Start: 08-28-2021 End: 08-28-2021 [facility] Start: 07-01-2021 End: 07-01-2021 Discharged Recurring [facility] Start: 06-03-2021 End: 06-30-2021 Discharged Recurring [facility] Start: 05-21-2021 End: 05-31-2021 Discharged Recurring [facility] Start: 09-09-2016 End: 09-10-2016 Ambulatory [facility] Facility:[facility] Procedures Date Procedure Procedure Detail Performing Clinician Start: 11-06-2024 Measurement of occul t blood in stool specimen using immunoassay Lynette ASH Work Phone: Start: 11-06-2024 Estimated creatinine clearance Lynette Burton WIRE STRAIGHTENER[employer]C Work Phone: Start: 11-03-2024 Measurement of occul t blood in stool specimen using immunoassay Lynette Burton [employer] STRA[employer] Work Phone: Start: 11-03-2024 Computed tomography of abdomen and pelvis with contrast Lynettetom Burton W[employer] STRAIGHTENER[employer] Work Phone: Start: 11-03-2024 Estimated creatinine clearance Lynette Burton [employer] STRA[employer] Work Phone: Start: 11-02-2024 Plain X-ray of shoulder Lynettetom Burton [employer] STRAIGHT[employer] Work Phone: Start: 11-02-2024 Plain X-ray of tibia and fibula Lynette Burton W[employer] STRA[employer] Work Phone: Start: 11-02-2024 X-ray of ankle, thre e or more views Lynette Micheal [employer] STRA[employer] Work Phone: Start: 11-02-2024 End: 11-02-2024 X-ray of knee, four or more views Lynette Micheal [employer] STRA[employer] Work Phone: Start: 11-02-2024 Estimated creatinine clearance Lynette Burton [employer] STRA[employer] Work Phone: Start: 11-02-2024 CT angiography of ne ck vessels Lynettetom Burton WIRE STRAIGHTENER[employer]C Work Phone: Start: 11-02-2024 CT cervical spine wi thout contrast Lynette Burton [employer] STRA[employer] Work Phone: Start: 11-02-2024 CT of head without contrast Lynette Micheal [employer] STRA[employer] Work Phone: Start: 11-02-2024 CT of thorax, abdome n and pelvis with contrast Lynette Burton [employer] STRA[employer] Work Phone: Start: 11-02-2024 CT of face Lynette Salmon ar [employer] STRA[employer]ENER[employer] Work Phone: Start: 08-17-2024 Anaerobic microbial culture Lynette Micheal [employer] STR[employer] Work Phone: Start: 08-17-2024 Gram stain microscopy R achel Micheal [employer] STR[employer] Work Phone: Start: 08-17-2024 End: 08-17-2024 Microbial culture, routine Lynette Micheal [employer] STR[employer] Work Phone: Start: 06-22-2024 Anaerobic microbial culture Lynette Micheal [employer] STRA[employer] Work Phone: Start: 06-22-2024 Gram stain microscopy R achel Micheal [employer] Work Phone: Start: 06-22-2024 Wound microscopy, cu lture and sensitivities Lynette Micheal [employer] STRA[employer] Work Phone: Start: 06-08-2024 MRI of lower extremity Lynette Micheal [employer] STRA[employer] Work Phone: Start: 06-01-2024 Plain X-ray of tibia and fibula Lynette Micheal [employer] STRA[employer] Work Phone: Start: 06-01-2024 X-ray of ankle, two views Lynette Micheal [employer] STRA[employer] Work Phone: Start: 05-11-2024 Anaerobic microbial culture Lynette Micheal [employer] STRA[employer] Work Phone: Start: 05-11-2024 Gram stain microscopy R achel Micheal [employer] Work Phone: Start: 05-11-2024 Microbial culture, routine Lynette Micheal [employer] STRA[employer] Work Phone: Start: 05-04-2024 Anaerobic microbial culture Lynette Micheal [employer] STRA[employer] Work Phone: Start: 05-04-2024 Gram stain microscopy R achel Micheal [employer] STRA[employer] Work Phone: Start: 05-04-2024 Microbial culture, routine Lynette Micheal [employer] STRA[employer] Work Phone: Start: 08-24-2023 Plain chest X-ray [...] PA-C Work Phone: Start: 09-02-2016 End: 01-08-2017 [facility] Brook Gage PA-C Work Phone: Start: [...] 05-31-2016 Miscellaneous (quali fier value) LOU 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 Comment on above: Had a amol place [...] Anupam Lizarraga MD Start: 09-04-2015 End: 09-04-2015 MANAGER RAIL Brook Gage PA-C Work Phone: Start: 09-04-2015 [...] 11-26-2014 End: 11-26-2014 *CBC with Differential Brook awlsh PA-C Work Phone: Start: 11-26-2014 End: 11-27-2014 [...] PA-C Work Phone: Start: 08-22-2014 End: 08-22-2014 MANAGER RAIL Brook Gage PA-C Work Phone: Start: 08-22-2014 End: 08-22-2014 Follow Up Appt 3 months Brook salas PA-C Work Phone: Start: 08-22-2014 End: 08-22-2014 MANAGER RAIL Brook Gage PA-C Work Phone: Start: 08-22-2014 [...] pacemaker, d evice (physical object) LOU BURTON 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 Plan of Treatment Date Care Activity Detail Author Start: 11-06-2024 Verification routine [facility] Start: 11-06-2024 Hospital admission, emergency, from emergency room, medical nature [facility] Start: 11-06-2024 Admission procedure [facility] Start: 11-06-2024 Administration of blood product [facility] Start: 11-06-2024 Leukocyte reduced red blood cells [facility] Start: 11-06-2024 ambulatory Facility:[facility] Start: 11-05-2024 ambulatory Facility:[facility] Start: 11-03-2024 [facility] Start: 11-02-2024 [facility] Start: 09-13-2023 Patient discharge [facility] Start: 07-14-2017 End: 07-14-2017 [address] [facility] Work Phone: Start: 07-12-2017 End: 07-12-2017 [address] [facility] Work Phone: Start: 01-08-2017 End: 01-11-2017 Chest x-ray X-Ray, Chest, PA & Lateral [facility] Work Phone: Start: 01-08-2017 End: 01-08-2017 Follow Up Appt 6 months Follow Up Appt 6 months [facility] Work Phone: Start: 01-08-2017 End: 02-10-2017 INR Coag RelTime (PPP) *PT/INR - Standing Order [facility] Work Phone: Start: 01-08-2017 End: 01-08-2017 MMM MMM [facility] Work Phone: Start: 01-08-2017 End: 01-08-2017 Appointment Appointment [facility] Work Phone: Start: 01-08-2017 End: 01-11-2017 Chest x-ray X-Ray, Chest, PA & Lateral [facility] Work Phone: Start: 01-08-2017 End: 02-10-2017 Coagulation factor induced.INR assay in platelet poor plasma *PT/INR - Standing Order [facility] Work Phone: Start: 01-08-2017 End: 01-08-2017 Follow Up Appt 6 months Follow Up Appt 6 months [facility] Work Phone: Start: 01-08-2017 End: 01-08-2017 MMM MMM [facility] Work Phone: Start: 01-06-2017 End: 01-08-2017 Follow Up Appt 6 months Follow Up Appt 6 months [facility] Work Phone: Start: 01-06-2017 End: 01-08-2017 Pacer Clinic [facility] Work Phone: Start: 01-06-2017 End: 01-06-2017 Appointment Appointment [facility] Work Phone: Start: 01-06-2017 End: 01-08-2017 Follow Up Appt 6 months Follow Up Appt 6 months [facility] Work Phone: Start: 01-06-2017 End: 01-08-2017 Pacer Clinic [facility] Work Phone: Start: 09-02-2016 End: 09-02-2016 MANAGER RAIL [facility] Work Phone: Start: 09-02-2016 End: 09-02-2016 Echocardiography Echocardiogram (limited) [facility] Work Phone: Start: 09-02-2016 End: 09-02-2016 Follow Up Appt 3 months Follow Up Appt [address] [facility] Work Phone: Start: 09-02-2016 End: 09-02-2016 MANAGER RAIL MANAGER RAIL [facility] Work Phone: Start: 09-02-2016 End: 12-07-2016 Echocardiography Echocardiogram (limited) [facility] Work Phone: Start: 09-02-2016 [...] 6 months Follow Up Appt [address] [facility] Work Phone: Start: 07-07-2016 End: 08-20-2016 Pacer Clinic Pac[facility] Clinic [facility] Work Phone: Start: 02-28-2016 End: 02-28-2016 Follow Up Appt 6 months Follow Up Appt [address] [facility] Work Phone: Start: 02-28-2016 End: 02-28-2016 MMM MMM [facility] Work Phone: Start: 02-28-2016 End: 02-28-2016 Follow Up Appt 6 months Follow Up Appt [address] [facility] Work Phone: Start: 02-28-2016 [...] 12-06-2015 End: 02-28-2016 Pacer Clinic Pacer Clinic [facility] Work Phone: Start: 09-04-2015 End: 09-04-2015 MANAGER RAIL MANAGER RAIL [facility] Work Phone: Start: 09-04-2015 End: 09-04-2015 Follow Up Appt 6 months Follow Up Appt 6 months [facility] Work Phone: Start: 09-04-2015 End: 09-04-2015 MANAGER RAIL MANAGER RAIL [facility] Work Phone: Start: 09-04-2015 End: 09-04-2015 Follow Up Appt 6 months Follow Up Appt [address] [facility] Work Phone: Start: 06-07-2015 End: 09-04-2015 Follow Up Appt 6 months Follow Up Appt [address] [facility] Work Phone: Start: 06-07-2015 End: 09-04-2015 Pacer Clinic Pacer Clinic [facility] Work Phone: Start: 06-07-2015 End: 09-04-2015 Follow Up Appt 6 months Follow Up Appt 6 months [facility] Work Phone: Start: 06-07-2015 End: 09-04-2015 Pacer Clinic Pacer Clinic [facility] Work Phone: Start: 03-01-2015 End: 03-01-2015 Follow Up Appt 6 months Follow Up Appt [address] [facility] Work Phone: Start: 03-01-2015 End: 03-01-2015 MMM MMM [facility] Work Phone: Start: 03-01-2015 End: 03-01-2015 Follow Up Appt 6 months Follow Up Appt 6 months [facility] Work Phone: Start: 03-01-2015 End: 03-01-2015 MMM MMM [facility] Work Phone: Start: 11-26-2014 End: 11-26-2014 *CBC with Differential *CBC with Differential [facility] Work Phone: Start: 11-26-2014 End: 11-27-2014 Echocardiography Echocardiogram (limited) [facility] Work Phone: Start: 11-26-2014 End: 09-04-2015 Follow Up Appt 3 months Follow Up Appt [address] [facility] Work Phone: Start: 11-26-2014 End: 11-27-2014 INR Coag RelTime (PPP) *PT/INR - Standing Order [facility] Work Phone: Start: 11-26-2014 End: 09-04-2015 Pacer Clinic Pacer Clinic [facility] Work Phone: Start: 11-26-2014 End: 09-04-2015 PFM PFM [facility] Work Phone: Start: 11-26-2014 End: 11-26-2014 *CBC with Differential *CBC with Differential [facility] Work Phone: Start: 11-26-2014 End: 11-27-2014 Coagulation factor induced.INR assay in platelet poor plasma *PT/INR - Standing Order [facility] Work Phone: Start: 11-26-2014 End: 11-27-2014 Echocardiography Echocardiogram (limited) [facility] Work Phone: Start: 11-26-2014 End: 09-04-2015 Follow Up Appt 3 months Follow Up Appt 3 months [facility] Work Phone: Start: 11-26-2014 End: 09-04-2015 Pacer Clinic [facility] Work Phone: Start: 11-26-2014 End: 09-04-2015 PFM PFM [facility] Work Phone: Start: 08-22-2014 End: 08-22-2014 MANAGER RAIL MANAGER RAIL [facility] Work Phone: Start: 08-22-2014 End: 08-22-2014 Follow Up Appt 3 months Follow Up Appt [address] [facility] Work Phone: Start: 08-22-2014 End: 08-22-2014 MANAGER RAIL MANAGER RAIL [facility] Work Phone: Start: 08-22-2014 End: 08-22-2014 Follow Up Appt 3 months Follow Up Appt [address] [facility] Work Phone: Start: 05-28-2014 End: 08-08-2014 Follow Up Appt 6 months Follow Up Appt 6 months [facility] Work Phone: Start: 05-28-2014 End: 08-08-2014 Pacer Clinic [facility] Work Phone: Start: 05-28-2014 End: 08-08-2014 Follow Up Appt 6 months Follow Up Appt [address] [facility] Work Phone: Start: 05-28-2014 End: 08-08-2014 Pacer Clinic Pacer Clinic [facility] Work Phone: Start: 04-25-2014 End: 08-08-2014 Device Interrogation Device Interrogation [facility] Work Phone: Start: 04-25-2014 End: 04-25-2014 Ecg routine ecg w/least 12 lds w/i&r EKG (In office) [facility] Work Phone: Start: 04-25-2014 End: 04-25-2014 Follow Up Appt 3 months Follow Up Appt 3 months [facility] Work Phone: Start: 04-25-2014 End: 04-25-2014 MMM MMM [facility] Work Phone: Start: 04-25-2014 End: 08-08-2014 Device Interrogation Device Interrogation [facility] Work Phone: Start: 04-25-2014 End: 04-25-2014 Electrocardiogram, complete EKG (In office) [facility] Work Phone: Start: 04-25-2014 End: 04-25-2014 Follow Up Appt 3 months Follow Up Appt [address] [facility] Work Phone: Start: 04-25-2014 End: 04-25-2014 MMM MMM [facility] Work Phone: CBC W Auto Different ial panel - Blood [facility] Patient Education [facility] Work Phone: Patient referral [facility] Work Phone: Prothrombin time [facility] Radionuclide gastric emptying study [facility] Radionuclide imaging of liver and/or biliary tract using radioactive isotope [facility] Replacement of elect ronic heart device, pulse generator [facility] Immunizations Immunization Date Immunization Notes Care Provider Fa cility 11-02-2024 tetanus toxoid, redu bill diphtheria toxoid, and acellular pertussis vaccine, adsorbed Lynette Burton WIRE STRAIGHTENER-C Work Phone: [facility] Payers Date Payer Category Payer Medicare [id number] 2024 Medicare [id number] 2023 Self-pay [id number] 2013 Medicare [id number] 1945 Unknown [id number] 2.16.8 40.1.631228.3.579.2.627 1945 Unknown [id number] 2.16.8 40.1.530344.3.579.2.627 Unknown [id number] 2.16.8 40.1.834802.3.579.2.462 Unknown [id number] 2.16.8 40.1.277079.3.579.2.462 Unknown [id number] 2.16.8 40.1.305022.3.579.2.462 Unknown [id number] 2.16.8 40.1.897170.3.579.2.462 Unknown [id number] 2.16.8 40.1.534357.3.579.2.462 Unknown [id number] 2.16.8 40.1.010581.3.579.2.462 Unknown [id number] 2.16.8 40.1.844399.3.579.2.462 Unknown [id number] 2.16.8 40.1.019669.3.579.2.462 Unknown [id number] 2.16.8 40.1.187838.3.579.2.462 Unknown [id number] 2.16.8 40.1.289753.3.579.2.462 Unknown [id number] 2.16.8 40.1.083817.3.579.2.462 Unknown [id number] 2.16.8 40.1.870522.3.579.2.462 Unknown [id number] 2.16.8 40.1.967679.3.579.2.462 Unknown [id number] 2.16.8 40.1.881829.3.579.2.462 Unknown [id number] 2.16.8 40.1.304520.3.579.2.462 Unknown [id number] 2.16.8 40.1.207842.3.579.2.462 Unknown [id number] 2.16.8 40.1.390154.3.579.2.462 Unknown [id number] 2.16.8 40.1.597025.3.579.2.462 Unknown [id number] 2.16.8 40.1.468014.3.579.2.462 Unknown [id number] 2.16.8 40.1.455267.3.579.2.462 Unknown [id number] 2.16.8 40.1.330387.3.579.2.462 Unknown [id number] 2.16.8 40.1.757869.3.579.2.462 Unknown [id number] 2.16.8 40.1.373337.3.579.2.462 Unknown [id number] 2.16.8 40.1.782500.3.579.2.462 Unknown [id number] 2.16.8 40.1.027638.3.579.2.462 Unknown [id number] 2.16.8 40.1.457111.3.579.2.462 Unknown [id number] 2.16.8 40.1.430622.3.579.2.462 Unknown [id number] 2.16.8 40.1.561523.3.579.2.462 Unknown [id number] 2.16.8 40.1.263244.3.579.2.462 Unknown [id number] 2.16.8 40.1.648653.3.579.2.462 Unknown [id number] 2.16.8 40.1.012132.3.579.2.462 Unknown [id number] 2.16.8 40.1.158375.3.579.2.462 Unknown [id number] 2.16.8 40.1.008223.3.579.2.462 Unknown [id number] 2.16.8 40.1.610656.3.579.2.462 Unknown [id number] 2.16.8 40.1.222318.3.579.2.462 Unknown [id number] 2.16.8 40.1.142401.3.579.2.462 Unknown [id number] 2.16.8 40.1.897140.3.579.2.462 Unknown [id number] 2.16.8 40.1.352246.3.579.2.462 Unknown [id number] 2.16.8 40.1.566981.3.579.2.462 Unknown [id number] 2.16.8 40.1.589654.3.579.2.462 Unknown [id number] 2.16.8 40.1.834935.3.579.2.462 Unknown [id number] 2.16.8 40.1.612740.3.579.2.462 Unknown [id number] 2.16.8 40.1.962730.3.579.2.462 Unknown [id number] 2.16.8 40.1.267418.3.579.2.462 Unknown [id number] 2.16.8 40.1.162479.3.579.2.462 Unknown [id number] 2.16.8 40.1.095596.3.579.2.462 Unknown [id number] 2.16.8 40.1.938446.3.579.2.462 Unknown [id number] 2.16.8 40.1.094536.3.579.2.462 Unknown [id number] 2.16.8 40.1.273538.3.579.2.462 Unknown [id number] 2.16.8 40.1.367983.3.579.2.462 Unknown [id number] 2.16.8 40.1.437648.3.579.2.462 Unknown [id number] 2.16.8 40.1.703722.3.579.2.462 Unknown [id number] 2.16.8 40.1.230513.3.579.2.462 Unknown [id number] 2.16.8 40.1.188660.3.579.2.462 Unknown [id number] 2.16.8 40.1.981553.3.579.2.462 Unknown [id number] 2.16.8 40.1.886791.3.579.2.462 Unknown [id number] 2.16.8 40.1.996045.3.579.2.462 Unknown [id number] 2.16.8 40.1.444025.3.579.2.462 Unknown [id number] 2.16.8 40.1.907431.3.579.2.462 Unknown [id number] 2.16.8 40.1.757965.3.579.2.462 Unknown [id number] 2.16.8 40.1.473981.3.579.2.462 Unknown [id number] 2.16.8 40.1.049376.3.579.2.462 Unknown [id number] 2.16.8 40.1.718637.3.579.2.462 Unknown [id number] 2.16.8 40.1.856185.3.579.2.462 Social History Date Type Detail Facility Start: 04-08-2021 End: 09-13-2023 Tobacco smoking status NHIS Unknown if ever smoked [facility] Start: 05-26-2016 None [facility] Start: 05-26-2016 With Family [facility] Start: 1945 Sex Assigned At Female [facility] Start: 05-18-2022 End: 11-06-2024 Tobacco smoking status Never smoked tobacco (finding) [facility] Sex Assigned At Sex [facility] Start: 08-28-2024 End: 08-29-2024 Sex Female (finding) [facility] Medical Equipment Procedure Code Equipment Code Equipment Origin al Text Equipment Identifier Dates ([id number]) Dual-chamber implantable pacemaker, rate-responsive ([id number] FDA Start: 09-13-2023 Mental Status Date Assessment Result Facility 11-06-2024 Cognitive function Level Of Cons ciousness Awake;Alert;Appropriate;Follow s Commands [facility] Work Phone: Clinical Notes 05-18-2024 to 11-06-2024 Note Date & Type Note Facility 11-06-2024 Discharge summary [facility] 11-06-2024 Discharge summary Note Date/Time November 06, 2024 4:46pm [facility] Medical Records Department [address] [place] [id number] Emergency Department Summary 11/06/24 MR#: [id number] Acct: [id number] Name: JC GROSS Rep #:[id number] 5 : 1945 79 From: Wei Swift PCP: NILSA Macias Status:ADM IN Location: [address] History of Present Illness Chief Complaint: [facility] Medical History Mobitz type 2 [...] 99 99 Oxygen Delivery Method Room Air [facility] Narrative Medical decision making narrative: HISTORY OF [...] Family Consults: (Gastroenterology), internal medicine (Dr. Parra) [facility] Narrative: The patient initially had soft blood [...] to medicine This note was generated with [employer] dictation software. It may contain incorrectwords, spelling, [...] Chief Complaint: Abn Labs ED Provider: Wei Sanduh Dx/Rx/DC Orders Primary Care Provider: Lynette Burton What to do if you have Problems For any increased pain, shortness of breath, bleeding, nausea or vomiting, chestpain, or any unexpected problems, contact your Primary Care Provider. Call [facility] ([phone]) or report to the closest Emergency Room. Call 911 if necessary. 11/06/24 1646 <Electronically signed by Wei Sandhu DO> Cosigner Signature (if applicable): CC: NILSA Burton ~ Signed [facility] Work Phone: 1(989) 807-946206-06-2025 Discharge summary [facility] Medical Records Department [address] [place] [address] Emergency Department Summary 11/03/24 MR#: [id number] Acct: [id number] Name: JC GROSS Rep #:[id number] 4 : 1945 79 From: Cash Zarate [...] back to the hospital for repeat evaluation [facility] Medical History Mobitz type 2 [...] 75.9 H Lymph % (Auto) 14.5 L [place] % (Auto) 8.6 Eos % (Auto) 0.0 [...] on 11/02/2024 as described above. Reading Location: [id number] Discharge Plan Triage Chief Complaint: Nausea/Vomiting ED Provider: Cash Zarate Dx/Rx/DC Orders Clinical Impression: Anemia, Nausea & vomiting, Supratherapeutic INR, Nonischemic cardiomyopathy, Paroxysmal atrial fibrillation, Current use of intermediate manager anticoagulation Instructions: Anemia, ED Vomiting (Adult) Prescriptions: [...] W/Diff, Automated (Routine) Timeframe: 3 Days Facility: [facility] - Location: Laboratory Ordered By: Dr. Cash Zarate Prothrombin Time w/INR (Routine) Timeframe: 3 Days Facility: [facility] - Location: Laboratory Ordered By: Dr. Cash Zarate Primary Care Provider: Lynette Burton Referrals: Lynette Burton, WIRE STRAIGHTENER-C [Primary Care Provider] - Activity Restrictions/Additional Instructions: Please hold your Coumadin until Wednesday night secondary to your elevated value found in the ER today. Have your blood volume and Coumadin level checked on Wednesday as directed from the ER visit. Continue your [place]/pain medication and laxative to prevent constipation and use Zofran for nausea vomit control. If you have any further bouts of discolored/bloody emesis or stool or have any further concerns please return to the ER for repeat evaluation. Print Language: Kuwaiti Disposition Disposition: Home, Self Care What to do if you have Problems For any increased pain, shortness of breath, bleeding, nausea or vomiting, chestpain, or any unexpected problems, contact your Primary Care Provider. Call [facility] ([phone]) or report tothe closest Emergency Room. Call 911 if necessary. 11/03/24 07 Cosigner Signature (if applicable): CC: NILSA Burton ~ Signed [facility]06-06-2025 Radiology Diagnostic study note [facility] Imaging Services [address] [place] [address] CTA Abd/Pelvis W/WO Contrast MR#: [id number] Acct: [id number] Name: JC GROSS Rep #: [id number] 4 : 1945 F 79 From: Margarita Hope MD PCP: NILSA Macias Status: REG ER Study:CTA Abd/Pelvis W/WO Contrast Date of Ex am: 11/03/24 Exam# [id number] Ordering Dr: Sherrie Zarate DO PROCEDURE: CTA [...] on 11/02/2024 as described above. Reading Location: [id number] CC: NILSA Burton; DO Justine Pathak Unit Coordinator: Signed [facility]06-05-2025 Radiology Diagnostic study note [facility] Imaging Services [address] [place], [place] [id number] CTA Neck W/WO Contrast MR#: [id number] Acct: [id number] Name: JC GROSS Rep #: [id number] : 1945 F 79 From: Alec Valencia MD PCP: NILSA Macias Status: REG ER Study:CTA Neck W/WO Contrast Date of Exam: 11/02/24 Exam# [id number] Ordering Dr: Michaela Lauren PROCEDURE: CTA NECK [...] heavy atherosclerotic plaque in the carotid siphons. [place] of Beard: Limited evaluation. Unremarkable as visualized. [...] Other nonacute findings detailed above. Reading Location: [place] [address] CC: NILSA Burton; EZRA Urias ~ Unit Coordinator: Signed [facility]06-05-2025 Radiology Diagnostic study note [facility] Imaging Services [address] [place] [id number] Sinus/Facial Bone MR#: [id number] Acct: [id number] Name: JC GROSS Rep #: [id number] 0 : 1945 F 79 From: Alec Valencia MD PCP: NILSA Macias Status: REG ER Study:Sinus/Facial Bone Date of Exam: Exam# [id number] Ordering Dr: Michaela Lauren PROCEDURE: SINUS/FACIAL BONE [...] Other nonacute findings detailed above. Reading Location: [place] [address] CC: NILSA Burton; EZRA Urias ~ Unit Coordinator: Signed [facility]06-05-2025 Radiology Diagnostic study note [facility] Imaging Services [address] [place] [id number] Chest, Abd, Pel w/Contrast MR#: [id number] Acct: [id number] Name: JC GROSS Rep #: [id number] : 1945 F 79 From: Joaquin Guillermo MD PCP: NILSA Macias Status: REG ER Study:CT Chest, Abd, Pel w/Contrast Date of E xam: 11/02/24 Exam# [id number] Ordering Dr: Michaela Lauren PROCEDURE: CT CHEST, [...] 3. Other findings as noted. Reading Location: [id number] CC: WIRE STRAIGHTENER-Nieves Burton; EZRA Urias ~ Unit Coordinator: Signed [facility] Work Phone: [phone] 307-571906-05-2025 Radiology Diagnostic study note [facility] Imaging Services [address] [place], [place] [address] Knee 4 or More Views MR#: [id number] Acct: [id number] Name: JC GROSS Rep #: [id number] 0 : 1945 F 79 From: True Duron MD PCP: NILSA Macias Status: REG ER Study:Knee 4 or More Views Date of Exam: 11/02/24 Exam# [id number] Ordering Dr: Shawn Drummond DO PROCEDURE: KNEE [...] out a currently occult fracture. Reading Location: [id number] CC: NILSA Burton; Dr. Justin Drummond DO ~ Unit Coordinator: Signed [facility]06-05-2025 Radiology Diagnostic study note [facility] Imaging Services [address] [place], [place] [address] Shoulder min 2 Views MR#: [id number] Acct: [id number] Name: JC GROSS Rep #: [id number] : 1945 F 79 From: Karmen Montez MD PCP: NILSA Macias Status: REG ER Study:Shoulder min 2 Views Date of Exam: 11/02/24 Exam# [id number] Ordering Dr: Michaela Lauren EXAM: XR Right Shoulder Complete, 2 or More Views CLINICAL INDICATION: PAIN TECHNIQUE: Two or more views of the right shoulder. COMPARISON: No relevant prior studies available. FINDINGS: BONES/JOINTS: Healing fracture of the proximal humerus. No dislocation. SOFT TISSUES: Soft tissue swelling. RAD/Shoulder min 2 Views IMPRESSION: Healing fracture of the proximal humerus. Reading Location: [facility] CC: WIRE STRAIGHTENER-C Lynette Burton; EZRA Urias ~ Unit Coordinator: Signed [facility]06-05-2025 Radiology Diagnostic study note [facility] Imaging Services [address] [place] [id number] Knee 4 or More Views MR#: [id number] Acct: [id number] Name: JC GROSS Rep #: [id number] : 1945 F 79 From: True Duron MD PCP: NILSA Macias Status: REG ER Study:Knee 4 or More Views Date of Exam: 11/02/24 Exam# [id number] Ordering Dr: Michaela Lauren PROCEDURE: KNEE 4 OR MORE VIEWS 11/02/2024 REASON FOR EXAM: PAIN TECHNIQUE: 4 view(s) of the left knee COMPARISON: None. RAD/Knee 4 or More Views IMPRESSION: Partially visualized left femoral intramedullary nail, with distal interlocking screw present. Visualized areas show no evidence of metallic fracture or screw loosening Moderate left knee degenerative changes are seen, with moderately severe patellofemoral wxmo-gl-imparpjx medial joint space narrowing noted No significant left knee joint effusion is seen. No acute fracture or dislocation is evident. Reading Location: [address] CC: NILSA Burton; EZRA Urias ~ Unit Coordinator: Signed [facility]06-05-2025 Radiology Diagnostic study note [facility] Imaging Services [address] [facility] [place], [place] [address] Ankle min 3 Views MR#: [id number] Acct: [id number] Name: JC GROSS Rep #: [id number] : 1945 F 79 From: Karmen [place]z MD PCP: NILSA Macias Status: REG ER Study:Ankle min 3 Views Date of Exam: Exam# [id number] Ordering Dr: Michaela Lauren EXAM: XR Right [...] CT is recommended. Reading Location: [facility] CC: NILSA Burton; EZRA Uiras ~ Unit Coordinator: Signed [facility]06-05-2025 Radiology Diagnostic study note [facility] Imaging Services [address] [place], [place] [id number] Tibia & Fibula 2 Views MR#: [id number] Acct: [id number] Name: JC GROSS Rep #: [id number] : 1945 F 79 From: Karmen [place] MD PCP: NILSA Macias Status: REG ER Study:Tibia & Fibula 2 Views Date of Exam: 11/02/24 Exam# [id number] Ordering Dr: Michaela Lauren EXAM: XR Left [...] evaluation with CT is recommended. Reading [facility] CC: NILSA Burton; EZRA Urias ~ Unit Coordinator: Signed [facility]06-05-2025 Radiology Diagnostic study note [facility] Imaging Services [address] [place], [place] [address] Spine Cervical without Contras MR#: [id number] Acct: [id number] Name: JC GROSS Rep #: [id number] : 1945 F 79 From: Karmen [place] MD PCP: NILSA Macias Status: REG ER Study:Spine Cervical without Contras Date of Exam: 11/02/24 Exam# [id number] Ordering Dr: Michaela Lauren EXAM: CT Cervical [...] the cervical spine as described. Reading Location[facility] CC: NILSA Burton; EZRA Urias ~ Unit Coordinator: Signed [facility]06-05-2025 Radiology Diagnostic study note [facility] Imaging Services [address] [place], [place] [address] Brain/Head without Contrast MR#: [id number] Acct: [id number] Name: JC GROSS Rep #: [id number] : 1945 F 79 From: Karmen [place] MD PCP: NILSA Macias Status: REG ER Study:Brain/Head without Contrast Date of Exa m: 11/02/24 Exam# [id number] Ordering Dr: Michaela Lauren EXAM: CT Head [...] evaluation with MRI is recommended. Reading [facility] CC: NILSA Burton; EZRA Urias ~ Unit Coordinator: Signed [facility]05-08-2025 Progress note Author Zarina Fish [facility] Note Date/Time October 05, 2024 1:37pm [facility] [address] [place] [address] Progress Note - Wound Care 10/05/24 1333 MR#: [id number] Acct: [id number] Name: JC GROSS Rep #:[id number] : 1945 79 From: Zarina MUNGUIA PCP: Lynette Burton, WIRE STRAIGHTENER-C Status:REG RCR Location: History of Present Illness Date of Service: 10/05/24 Chief Complaint: R posterolateral calf wound History of Wound: cJ Gross is a 78 y/o female who [...] 13:01 10/05/24 13:01 Charges/Coding Procedures Integumentary 111xxx-113xx: 28284 Jazzy subq tissue 20 sq cm/< Physical [...] Post-Debridement Measurements and Additional Note: Post-Debridement Measurements/Treatment [facility] Nurse 1 - General Ulcer Assessment Start: 10/05/24 13:01 Freq: Status: Active Protocol: CELY.LOWSANTHOSHT Activity Type Activity Date Activity User E-sign Co-sign Detail Recorded Client Recorded Date Recorded By Document 10/05/24 13:01 PEE [id number] 10/05/24 13:06 DL 10/05/24 13:01 - Today's Visit Information Type of service Follow-up Visit (Physician/COMBATANT SWIMMER ) Arrival Mode Ambulatory Transfer Assistance None [...] Date Recorded By Document 10/05/24 13:01 PEE [id number] 10/05/24 13:06 DL 10/05/24 13:01 Wound Center Nurse 1 #2 Right inferior ankle CLUSTER -Current Size (cm) - Length 0.1 -Current Size (cm) - Width 0.1 -Current Size (cm) - Depth 0.1 -Total Square Cm 0.01 -Photo Taken Yes -Exudate Amt None Present -Wound Margin Distinct, Outline Attached -Granulation Amt Medium (34-66%) -Granulation Quality Pale,[place] -Necrosis Amt None Present (0 %) -Structure [...] Recorded Date Recorded By Document 10/05/24 13:17 [id number] 10/05/24 13:19 10/05/24 13:17 Wound Center Nurse [...] Date Recorded By Document 10/05/24 13:23 KW [id number] 10/05/24 13:23 KW Edit Result 10/05/24 13:23 KW (1) [id number] 10/05/24 13:30 KW (1) #2 Right inferior [...] Cosigner Signature (if applicable): CC: ~ Signed [facility] Work Phone: 1(851) 893-743305-08-2025 Progress note [facility] [address] [place] [address] Progress Note - Wound Care 10/05/24 1333 MR#: [id number] Acct: [id number] Name: JC GROSS Rep #:[id number] 7 : 1945 79 From: Zarina MUNGUIA [...] 10/05/24 13:10/05/24 13:01 Charges/Coding Procedures Integumentary 111xxx-113xx: 13924 Jazzy subq tissue 20 sq cm/< Physical [...] Date Recorded By Document 10/05/24 13:01 PEE [id number] 10/05/24 13:06 PEE 10/05/24 13:01 - Today's Visit Information Type of service Follow-up Visit (Physician/COMBATANT SWIMMER ) Arrival Mode Ambulatory Transfer Assistance None [...] Date Recorded By Document 10/05/24 13:01 PEE [id number] 10/05/24 13:06 DL 10/05/24 13:01 Wound Center Nurse 1 #2 Right inferior ankle CLUSTER -Current Size (cm) - Length 0.1 -Current Size (cm) - Width 0.1 -Current Size (cm) - Depth 0.1 -Total Square Cm 0.01 -Photo Taken Yes -Exudate Amt None Present -Wound Margin Distinct, Outline Attached -Granulation Amt Medium (34-66%) -Granulation Quality Pale,[place] -Necrosis Amt None Present (0 %) -Structure [...] Recorded Date Recorded By Document 10/05/24 13:17 [id number] 10/05/24 13:19 10/05/24 13:17 Wound Center Nurse [...] Date Recorded By Document 10/05/24 13:23 KW [id number] 10/05/24 13:23 KW Edit Result 10/05/24 13:23 KW (1) [id number] 10/05/24 13:30 KW (1) #2 Right inferior [...] Cosigner Signature (if applicable): CC: ~ Signed [facility]03-20-2025 Progress note Author Zarina Fish [facility] Note Date/Time August 17, 2024 1:3 8pm [facility] [address] [place] [address] Progress Note - Wound Care 08/17/24 1336 MR#: [id number] Acct: [id number] Name: JC GROSS Rep #:[id number] : 1945 79 From: Zarina MUNGUIA [...] the area of the wound, 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 No N/V, F/C. Objective Data Objective Data Vital Signs: Vital Signs Temp Pulse Resp BP O2 Del Method 97.1 F L 74 14 117/56 L Room Air 08/17/24 13:03 08/17/24 13:03 08/17/24 13:03 08/17/24 13:03 08/10/24 13:12 Oxygen Delivery Method Room Air Charges/Coding Procedures Integumentary 111xxx-113xx: 79262 Jazzy musc/fascia 20 sq cm/< Physical Exam [...] Start: 08/10/24 13:10 Freq: Status: Active Protocol: CELY.FantasyBookSANTHOSHT Activity Type Activity Date Activity User E-sign Co-sign Detail Recorded Client Recorded Date Recorded By Document 08/10/24 13:12 KW [id number] 08/10/24 13:20 KW Document 08/17/24 13:03 KW [id number] 08/17/24 13:07 KW 08/10/24 08/17/24 13:12 13:03 - Today's Visit Information Type of service Follow-up Visit Follow-up Visit (Physician/COMBATANT SWIMMER (Physician/COMBATANT SWIMMER ) ) Arrival Mode Ambulatory Ambulatory Transfer [...] Date Recorded By Document 08/10/24 13:12 KW [id number] 08/10/24 13:20 KW Document 08/17/24 13:03 [id number] 08/17/24 13:07 KW 08/10/24 08/17/24 13:12 13:03 [...] -Moisture (Alpa-wound Skin Appearance) Assessed Assessed -Color (Apla-wound Skin Appearance) Assessed, Assessed Erythema -Temperature (Alpa-wound [...] Recorded Date Recorded By Document 08/10/24 13:34 [id number] 08/10/24 13:41 GM Edit Result 08/10/24 13:34 GM (1) [id number] 08/10/24 13:43 GM Document 08/17/24 13:15 GM [id number] 08/17/24 13:22 GM (1) #2 Right inferior [...] Date Recorded By Document 08/10/24 13:59 KW [id number] 08/10/24 14:01 KW Document 08/17/24 13:34 ML [id number] 08/17/24 13:35 ML 08/10/24 08/17/24 13:59 13:34 [...] week. 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 No N/V,F/C. Objective Data Objective Data Vital Signs: Vital Signs Temp Pulse Resp BP O2 Del Method 97.1 F L 74 14 117/56 L Room Air 08/17/24 13:03 08/17/24 13:03 08/17/24 13:03 08/17/24 13:03 08/10/24 13:12 Oxygen Delivery Method Room Air Charges/Coding Procedures Integumentary 111xxx-113xx: 32638 Jazzy musc/fascia 20 sq cm/< Physical Exam [...] Date Recorded By Document 08/10/24 13:12 KW [id number] 08/10/24 13:20 KW Document 08/17/24 13:03 KW [id number] 08/17/24 13:07 KW 08/10/24 08/17/24 13:12 13:03 - Today's Visit Information Type of service Follow-up Visit Follow-up Visit (Physician/COMBATANT SWIMMER (Physician/COMBATANT SWIMMER ) ) Arrival Mode Ambulatory Ambulatory Transfer [...] Date Recorded By Document 08/10/24 13:12 KW [id number] 08/10/24 13:20 KW Document 08/17/24 13:03 KW [id number] 08/17/24 13:07 KW 08/10/24 08/17/24 13:12 13:03 [...] Date Recorded By Document 08/10/24 13:34 GM [id number] 08/10/24 13:41 GM Edit Result 08/10/24 13:34 GM (1) [id number] 08/10/24 13:43 GM Document 08/17/24 13:15 GM [id number] 08/17/24 13:22 GM (1) #2 Right inferior [...] Date Recorded By Document 08/10/24 13:59 KW [id number] 08/10/24 14:01 KW Document 08/17/24 13:34 ML [id number] 08/17/24 13:35 ML 08/10/24 08/17/24 13:59 13:34 [...] Cosigner Signature (if applicable): CC: ~ Signed [facility]03-16-2025 Progress note Author Zarina Fish [facility] Note Date/Time August 13, 2024 9:4 6am [facility] [address] [place] [address] Progress Note - Wound Care 08/10/24 1357 MR#: [id number] Acct: [id number] Name: JC GROSS Rep #:[id number] : 1945 79 From: Zarina MUNGUIA [...] Method Room Air Charges/Coding Procedures Integumentary 111xxx-113xx: 09132 Jazzy musc/fascia 20 sq cm/< Physical Exam [...] Date Recorded By Document 08/10/24 13:12 KW [id number] 08/10/24 13:20 08/10/24 13:12 - Today's Visit Information Type of service Follow-up Visit (Physician/COMBATANT SWIMMER ) Arrival Mode Ambulatory Accompanied by daughter [...] Date Recorded By Document 08/10/24 13:12 KW [id number] 08/10/24 13:20 08/10/24 13:12 Wound Center Nurse [...] Date Recorded By Document 08/10/24 13:34 GM [id number] 08/10/24 13:41 GM Edit Result 08/10/24 13:34 GM (1) [id number] 08/10/24 13:43 GM (1) #2 Right inferior [...] She will return in 1 week. 08/13/24 0980 <Electronically signed by Zarina MUNGUIA> Cosigner Signature (if applicable): CC: ~ Signed [facility] Work Phone: 1(753) 196-119103-16-2025 Progress note [facility] [address] [place] [address] Progress Note - Wound Care 08/10/24 1357 MR#: [id number] Acct: [id number] Name: JC GROSS Rep #:[id number] : 1945 79 From: Zarina MUNGUIA [...] Method Room Air Charges/Coding Procedures Integumentary 111xxx-113xx: 57373 Jazzy musc/fascia 20 sq cm/< Physical Exam [...] Date Recorded By Document 08/10/24 13:12 PAULO [id number] 08/10/24 13:20 KW 08/10/24 13:12 - Today's Visit Information Type of service Follow-up Visit (Physician/COMBATANT SWIMMER ) Arrival Mode Ambulatory Accompanied by daughter [...] Recorded Date Recorded By Document 08/10/24 13:12 [id number] 08/10/24 13:20 KW 08/10/24 13:12 Wound Center [...] Date Recorded By Document 08/10/24 13:34 GM [id number] 08/10/24 13:41 GM Edit Result 08/10/24 13:34 GM (1) [id number] 08/10/24 13:43 GM (1) #2 Right inferior [...] Cosigner Signature (if applicable): CC: ~ Signed [facility]02-27-2025 Evaluation note* Diagnosis Onset Date Resolution Status [...] lower extremities acute October 26, 2024 1:15pm [facility] Work Phone: 1(647) 693-339312-19-2024 Evaluation note* Diagnosis Onset Date Resolution Status [...] both lower extremities acute August 17 1:00pm [facility] Work Phone: Discharge summary Author Cash Zarate [facility] Note Date/Time November 03, 2024 7:19a m [facility] Medical Records Department [address] [place] [address] Emergency Department Summary 11/03/24 MR#: [id number] Acct: [id number] Name: JC GROSS Rep #:[id number] : 1945 79 From: Cash Zarate [...] back to the hospital for repeat evaluation [facility] Medical History Mobitz type 2 [...] 75.9 H Lymph % (Auto) 14.5 L [place] % (Auto) 8.6 Eos % (Auto) 0.0 [...] on 11/02/2024 as described above. Reading Location: [facility] Discharge Plan Triage Chief Complaint: Nausea/Vomiting ED Provider: Cash Zarate Dx/Rx/DC Orders Clinical Impression: Anemia, Nausea & vomiting, Supratherapeutic INR, Nonischemic cardiomyopathy, Paroxysmal atrial fibrillation, Current use of intermediate manager anticoagulation Instructions: Anemia, ED Vomiting (Adult) Prescriptions: [...] W/Diff, Automated (Routine) Timeframe: 3 Days Facility: [facility] - Location: Laboratory Ordered By: Dr. Cash Zarate Prothrombin Time w/INR (Routine) Timeframe: 3 Days Facility: [facility] - Location: Laboratory Ordered By: Dr. Cash Zarate Primary Care Provider: Lynette Burton Referrals: Lynette Burton, WIRE STRAIGHTENER-C [Primary Care Provider] - Activity Restrictions/Additional Instructions: Please hold your Coumadin until Wednesday night secondary to your elevated value found in the ER today. Have your blood volume and Coumadin level checked on Wednesday as directed from the ER visit. Continue your [place]/pain medication and laxative to prevent constipation and use Zofran for nausea vomit control. If you have any further bouts of discolored/bloody emesis or stool or have any further concerns please return to the ER for repeat evaluation. Print Language: Kuwaiti Disposition Disposition: Home, Self Care What to do if you have Problems For any increased pain, shortness of breath, bleeding, nausea or vomiting, chestpain, or any unexpected problems, contact your Primary Care Provider. Call [facility] ([phone]) or report to the closest Emergency Room. Call 911 if necessary. 11/03/24718 <Electronically signed by Cash Zarate DO> Cosigner Signature (if applicable): CC: NILSA Burton ~ Signed [facility] Work Phone: Evaluation + Plan note Future Appointments Appointment Date:06/09/2022 01:30:00 PM Scheduled Provider:LOU BURTON [facility] Appointment Type:PC OV Follow Up Future Scheduled Tests Laboratory* Amylase Level 05/18/22 * Helicobacter Pylori Antibody 05/18/22 * Lipase Level 05/18/22 * Carbohydrate Antigen 19-9 05/18/22 * Complete Blood Count 05/18/22 * Complete Metabolic Panel 05/18/22 [facility] Evaluation noteNo assessment information available [facility] Work Phone: Evaluation note* Diagnosis Onset Date [...] syndrome due to SA node dysfunction chronic [facility] Work Phone: Evaluation note* Diagnosis Onset Date [...] sinus syndrome due to SA node dysfunction [facility] Work Phone: Evaluation note* Diagnosis Onset Date Resolution Status Abdominal pain acute [facility] Work Phone: Evaluation note* Diagnosis Onset Date Resolution Status Abdominal pain acute Gall bladder disease acute Chronic systolic (congestive) heart failure chronic 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 Nonischemic cardiomyopathy c hronic Paroxysmal atrial fibrillation chronic Presence of permanent cardiac pacemaker 2009 chronic Sick sinus syndrome due to SA node dysfunction chronic Preop cardiovascular exam ac inupiat Nonischemic cardiomyopathy c hronic Presence of permanent cardiac pacemaker 2009 chronic [facility] Work Phone: Evaluation note* Diagnosis Onset Date Resolution Status Gall bladder disease acute Chronic systolic (congestive) heart failure chronic 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 Nonischemic cardiomyopathy c hronic Paroxysmal atrial fibrillation chronic Presence of permanent cardiac pacemaker 2009 chronic Sick sinus syndrome due to SA node dysfunction chronic Preop cardiovascular exam ac inupiat Nonischemic cardiomyopathy c hronic Presence of permanent cardiac pacemaker 2009 [facility] Work Phone: Evaluation note* Diagnosis Onset Date Resolution Status Gall bladder disease acute Chronic systolic (congestive) heart failure chronic 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 Nonischemic cardiomyopathy c hronic Paroxysmal atrial fibrillation chronic Presence of permanent cardiac pacemaker 2009 chronic Sick sinus syndrome due to SA node dysfunction chronic Preop cardiovascular exam ac inupiat Nonischemic cardiomyopathy c hronic Presence of permanent cardiac pacemaker 2009 chronic 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 Paroxysmal atrial fibrillation chronic Presence of permanent cardiac pacemaker 2009 chronic Sick sinus syndrome due to SA node dysfunction [facility] Work Phone: Evaluation note* Diagnosis Onset Date Resolution Status 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 Paroxysmal atrial fibrillation chronic Presence of permanent cardiac pacemaker 2009 chronic Sick sinus syndrome due to SA node dysfunction [facility] Work Phone: Evaluation note* Diagnosis Onset Date Resolution Status Chronic systolic (congestive) heart failure chronic 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 Nonischemic cardiomyopathy c hronic Paroxysmal atrial fibrillation chronic Presence of permanent cardiac pacemaker 2009 chronic Sick sinus syndrome due to SA node dysfunction [facility] Work Phone: Evaluation note* Diagnosis Onset [...] Presence of permanent cardiac pacemaker 2009 chronic [facility] Work Phone: Hospital course Narrative No data available for this section [facility] Hospital Discharge instructions No data available for this section [facility] Hospital Discharge instructions Additional Instructions Have [...] right shoulder. Wear the sling at all times.[facility] Work Phone: Hospital Discharge instructions Additional Instructions Please hold your Coumadin until Wednesday night secondary to your elevated value found in the ER today. Have your blood volume and Coumadin level checked on Wednesday as directed from the ER visit. Continue your [place]/pain medication and laxative to prevent constipation and use Zofran for nausea vomit control. If you have any further bouts of discolored/bloody emesis or stool or have any further concerns please return to the ER for repeat evaluation.[facility] Work Phone: Progress note No data available for this section [facility] Reason for referral (narrative)No reason for referral information availableWF[facility] Work Phone: Summary Purpose Family History Relationship Condition Age at Onset Recorded Date/T biju brother Sudden cardiac Unknown brother Myocardial infarction 40 Cardiac disease Unknown sister Hypertension Unknown Advance Directives Advance Directive Response Recorded Date/ Time Advance Directives No June 02, 2016 12:30am Living Will No January 03, 2018 10:45am Power of Street Photographer No January 03 10:45am Advance Directive Response Recorded Date/ Time Advance Directives No June 01, 2016 11:30pm Living Will No January 03, 2018 9:45am Power of Street Photographer No January 03 9:45am Advance Directive Response Recorded Date/ Time Advance Directives on File Yes September 13, 2023 11:03am Name of Medical Power of Street Photographer Edmundo Palmer rger September 13, 2023 11:03am Advance Directives Yes September 12 11:03am Living Will Yes September 13, 2023 11:03am Power of Street Photographer Yes September 12 11:03am Advance Directive Response Recorded Date/ Time Living Will Yes January 11 11:52am Do you have a Healthcare Power of Street Photographer? Yes January 12, 2024 11:52am Living Will Yes April 30 12:14am Do you have a Healthcare Power of Street Photographer? Yes April 30, 2024 12:14am Living Will Yes April 30 1:21am Do you have a Healthcare Power of Street Photographer? Yes April 30, 2024 1:21am Living Will Yes May 31 1:14am Do you have a Healthcare Power of Street Photographer? Yes May 31, 2024 1:14am Living Will Yes July 01 1:42am Do you have a Healthcare Power of Street Photographer? Yes July 01, 2024 1:42am Living Will Yes July 29, 2024 1:37am Do you have a Healthcare Power of Street Photographer? Yes July 29, 2024 1:37am Living Will Yes May 31 5:18am Do you have a Healthcare Power of Street Photographer? Yes May 31, 2024 5:18am Living Will Yes July 01 2:26am Do you have a Healthcare Power of Street Photographer? Yes July 01, 2024 2:26am Living Will Yes July 29, 2024 4:57am Do you have a Healthcare Power of Street Photographer? Yes July 29, 2024 4:57am Advance Directives Yes September 12 024 11:03am Advance Directive Response Recorded Date/ Time Living Will Yes January 11 11:52am Do you have a Healthcare Power of Street Photographer? Yes January 12, 2024 11:52am Living Will Yes July 01 1:42am Do you have a Healthcare Power of Street Photographer? Yes July 01, 2024 1:42am Living Will Yes July 29, 2024 1:37am Do you have a Healthcare Power of Street Photographer? Yes July 29, 2024 1:37am Living Will Yes August 28, 2024 10:00pm Do you have a Healthcare Power of Street Photographer? Yes August 28, 2024 10:00pm Living Will Yes August 29, 2024 12:13am Do you have a Healthcare Power of Street Photographer? Yes August 29, 2024 12:13am Living Will Yes September 27, 2024 8:51pm Do you have a Healthcare Power of Street Photographer? Yes September 27, 2024 8:51pm Living Will Yes September 28, 2024 12 :08am Do you have a Healthcare Power of Street Photographer? Yes September 28, 2024 12:08am Living Will Yes May 31 5:18am Do you have a Healthcare Power of Street Photographer? Yes May 31, 2024 5:18am Living Will Yes July 01 2:26am Do you have a Healthcare Power of Street Photographer? Yes July 01, 2024 2:26am Living Will Yes July 29, 2024 4:57am Do you have a Healthcare Power of Street Photographer? Yes July 29, 2024 4:57am Advance Directives Yes September 12 11:03am Advance Directive Response Recorded Date/ Time Living Will Yes January 11 11:52am Do you have a Healthcare Power of Street Photographer? Yes January 12, 2024 11:52am Living Will Yes July 01 1:42am Do you have a Healthcare Power of Street Photographer? Yes July 01, 2024 1:42am Living Will Yes July 29, 2024 1:37am Do you have a Healthcare Power of Street Photographer? Yes July 29, 2024 1:37am Living Will Yes August 28, 2024 10:00pm Do you have a Healthcare Power of Street Photographer? Yes August 28, 2024 10:00pm Living Will Yes August 29, 2024 12:13am Do you have a Healthcare Power of Street Photographer? Yes August 29, 2024 12:13am Living Will Yes September 27, 2024 8:51pm Do you have a Healthcare Power of Street Photographer? Yes September 27, 2024 8:51pm Living Will Yes September 28, 2024 12 :08am Do you have a Healthcare Power of Street Photographer? Yes September 28, 2024 12:08am Living Will Yes July 01 2:26am Do you have a Healthcare Power of Street Photographer? Yes July 01, 2024 2:26am Living Will Yes July 29, 2024 4:57am Do you have a Healthcare Power of Street Photographer? Yes July 29, 2024 4:57am Advance Directives Yes September 12 11:03am Advance Directive Response Recorded Date/ Time Living Will Yes January 11 11:52am Do you have a Healthcare Power of Street Photographer? Yes January 12, 2024 11:52am Living Will Yes July 01 1:42am Do you have a Healthcare Power of Street Photographer? Yes July 01, 2024 1:42am Living Will Yes July 29, 2024 1:37am Do you have a Healthcare Power of Street Photographer? Yes July 29, 2024 1:37am Living Will Yes August 28, 2024 10:00pm Do you have a Healthcare Power of Street Photographer? Yes August 28, 2024 10:00pm Living Will Yes August 29, 2024 12:13am Do you have a Healthcare Power of Street Photographer? Yes August 29, 2024 12:13am Living Will Yes September 27, 2024 8:51pm Do you have a Healthcare Power of Street Photographer? Yes September 27, 2024 8:51pm Living Will Yes September 28, 2024 12 :08am Do you have a Healthcare Power of Street Photographer? Yes September 28, 2024 12:08am Do you have a Healthcare Power of Street Photographer? No November 03, 2024 2:54am Living Will Yes July 01 2:26am Do you have a Healthcare Power of Street Photographer? Yes July 01, 2024 2:26am Living Will Yes July 29, 2024 4:57am Do you have a Healthcare Power of Street Photographer? Yes July 29, 2024 4:57am Advance Directives Yes September 12 11:03am Advance Directive Response Recorded Date/ Time Living Will Yes January 11 11:52am Do you have a Healthcare Power of Street Photographer? Yes January 12, 2024 11:52am Living Will Yes July 01 1:42am Do you have a Healthcare Power of Street Photographer? Yes July 01, 2024 1:42am Living Will Yes July 29, 2024 1:37am Do you have a Healthcare Power of Street Photographer? Yes July 29, 2024 1:37am Living Will Yes August 28, 2024 10:00pm Do you have a Healthcare Power of Street Photographer? Yes August 28, 2024 10:00pm Living Will Yes August 29, 2024 12:13am Do you have a Healthcare Power of Street Photographer? Yes August 29, 2024 12:13am Living Will Yes September 27, 2024 8:51pm Do you have a Healthcare Power of Street Photographer? Yes September 27, 2024 8:51pm Living Will Yes September 28, 2024 12 :08am Do you have a Healthcare Power of Street Photographer? Yes September 28, 2024 12:08am Living Will Yes October 28, 2024 8 :57pm Do you have a Healthcare Power of Street Photographer? Yes October 28, 2024 8:57pm Do you have a Healthcare Power of Street Photographer? No November 03, 2024 2:54am Do you have a Healthcare Power of Street Photographer? No November 06, 2024 1:41pm Living Will Yes July 01 2:26am Do you have a Healthcare Power of Street Photographer? Yes July 01, 2024 2:26am Living Will Yes July 29, 2024 4:57am Do you have a Healthcare Power of Street Photographer? Yes July 29, 2024 4:57am Advance Directives [...] of gallbladder, unspecified 6 MO CK / MANAGER RAIL 10:00 1 YR /U / DANYELL 9:30 [...] of gallbladder, unspecified 6 MO CK / MANAGER RAIL 10:00 1 YR /U / DANYELL 9:30 [...] of gallbladder, unspecified 6 MO CK / MANAGER RAIL 10:00 1 YR /U / DANYELL 9:30 [...] of gallbladder, unspecified 6 MO CK / MANAGER RAIL 10:00 1 YR /U / DANYELL 9:30 [...] section and content) DATE CREATED AUTHOR 11/24/2017 [facility] DATE CREATED AUTHOR AUTHOR'S ORGANIZ ATION 07/24/2019 [facility] DATE CREATED AUTHOR AUTHOR'S ORGANIZ ATION 05/29/2022 [facility] ([place]) DATE CREATED AUTHOR AUTHOR'S ORGANIZ ATION 11/03/[address] [facility] Goals (unrecognized section and [...] and content) Care Team Personnel Name: LOU BURTONCOMBATANT SWIMMER Position: P4 Advanced Practice Nurse Member Role: Primary Care Physician Address: Address: [address] [place] [address]- Care Team Related Persons Name: EDMUNDO GROSS Name: MICAELA COOPER Address: Home [id number] [place] [address] [place] Care Team Personnel Name: LOU BURTON APRN-COMBATANT SWIMMER Position: P4 Advanced Practice Nurse Member Role: Primary Care Physician Address: Address: [address] [place] [address]- Care Team Related Persons Name: RENATOEDMUNDO FLORES Name: MICAELA COOPER Address: Home [address] [place] [place] [address] [place] Care Teams (unrecognized sec tion and content) Team Status: Active Member Role Status Dates NILSA Macias Primary Care Provider Active Team Status: Active Member Role Status Dates NILSA Macias Primary Care Provider Active Start: July 06, 2024 EZRA Rincon Attending Provider Active Star t: July 06, 2024 EZRA Rincon Other Provider Active Start: 2024 Mame Jacob WIRE STRAIGHTENER, WIRE STRAIGHTENER-C Referring Provider Active S tart: July 06, 2024 Team Status: Active Member Role Status Dates Lynette Burton WIRE STRAIGHTENER-C Primary Care Provider Active Start: July 12, 2024 EZRA Rincon Other Provider Active Start: 2024 Juanita Jacobsen WIRE STRAIGHTENER, WIRE STRAIGHTENER-C Attending Provider Active Start: July 12, 2024 Juanita Jacobsen WIRE STRAIGHTENER, WIRE STRAIGHTENER-C Referring Provider Active Start: July 12, 2024 Team Status: Active Member Role Status Dates Lynette Burton WIRE STRAIGHTENER-C Primary Care Provider Active Start: July 20, 2024 EZRA Rincon Attending Provider Active Star t: July 20, 2024 EZRA Rincon Other Provider Active Start: 2024 Mame Jacob WIRE STRAIGHTENER, WIRE STRAIGHTENER-C Referring Provider Active S tart: July 20, 2024 Team Status: Inactive Member Role Status Dates Lynette Burton WIRE STRAIGHTENER-C Primary Care Provider Active Start: July 27, 2024 End: July 28, 2024 EZRA Rincon Attending Provider Active Star t: July 27, 2024 End: July 28, 2024 Mame Jacob WIRE STRAIGHTENER, WIRE STRAIGHTENER-C Referring Provider Active S tart: July 27, [...] End: July 28, 2024 Lou Burton NP, WIRE STRAIGHTENER-C Other Provider Active S tart: July 27, 2024 End: July 28, 2024 Lynette Burton WIRE STRAIGHTENER-C Primary Care Provider Active Start: July 27, 2024 End: July 28, 2024 Team Status: Active Member Role Status Dates Lynette Burton WIRE STRAIGHTENER-C Primary Care Provider Active Start: July 27, 2024 EZRA Rincon Attending Provider Active Star t: July 27, 2024 EZRA Rincon Other Provider Active Start: F ebruary 2024 Mame Jacob WIRE STRAIGHTENER, WIRE STRAIGHTENER-C Referring Provider Active S tart: July 27, 2024 Team Status: Active Member Role Status Dates Lynette Burton WIRE STRAIGHTENER-C Primary Care Provider Active Start: August 10, 2024 EZRA Rincon Attending Provider Active Star t: August 10, 2024 EZRA Rincon Other Provider Active Start: 2024 Mame Jacob WIRE STRAIGHTENER, WIRE STRAIGHTENER-C Referring Provider Active S tart: August 10, 2024 Team Status: Inactive Member Role Status Dates Lynette Burton WIRE STRAIGHTENER-C Primary Care Provider Active Start: August 17, 2024 End: August 28, 2024 EZRA Rincon Attending Provider Active Star t: August 17, 2024 End: August 28, 2024 Mame Jacob WIRE STRAIGHTENER, WIRE STRAIGHTENER-C Referring Provider Active S tart: August 17, 2024 End: August 28, 2024 Team Status: Active Member Role Status Dates Lynette Burton WIRE STRAIGHTENER-C Primary Care Provider Active Start: August 17, 2024 EZRA Rincon Attending Provider Active Star t: August 17, 2024 EZRA Rincon Other Provider Active Start: 2024 Mame Jacob WIRE STRAIGHTENER, WIRE STRAIGHTENER-C Referring Provider Active S tart: August 17, [...] End: August 17, 2024 Lou Burton NP, WIRE STRAIGHTENER-C Other Provider Active S tart: August 17, 2024 End: August 17, 2024 Lynette Burton NP-C Primary Care Provider Active Start: August 17, 2024 End: August 17, 2024 Team Status: Inactive Member Role Status Dates Lynette Burton WIRE STRAIGHTENER-C Primary Care Provider Active Start: August 30, 2024 End: August 30, 2024 Dr. Anupam Lizarraga MD Attending Provider Active S tart: August 30, 2024 End: August 30, 2024 Team Status: Inactive Member Role Status Dates Lynette Burton , WIRE STRAIGHTENER-C Primary Care Provider Active Start: August 30, 2024 End: August 30, 2024 Lynette Burton WIRE STRAIGHTENER-C Referring Provider Active St art: August 30, 2024 End: August 30, 2024 Brook MUNGUIA, PA Attending Provider Active Start: August 30, 2024 End: August 30, 2024 Team Status: Inactive Member Role Status Dates Lynette Burton WIRE STRAIGHTENER-C Primary Care Provider Active Start: August 30, 2024 End: August 30, 2024 Dr. Anupam Lizarraga MD Attending Provider Active S tart: August 30, 2024 End: August 30, 2024 Dr. Anupam Lizarraga MD Referring Provider Active S tart: August 30, 2024 End: August 30, 2024 Team Status: Active Member Role Status Dates Lynette Burton , WIRE STRAIGHTENER-C Primary Care Provider Active Start: August 31, 2024 EZRA Rincon Attending Provider Active Star t: August 31, 2024 EZRA Rincon Other Provider Active Start: A 2024 Mame Jacob NP, WIRE STRAIGHTENER-C Referring Provider Active S tart: August 31, 2024 Team Status: Inactive Member Role Status Dates Lynette Burton WIRE STRAIGHTENER-C Primary Care Provider Active Start: September 11, 2024 End: September 11, 2024 Dr. Anupam iLzarraga MD Attending Provider Active S tart: September 11, 2024 End: September 11, 2024 Dr. Anupam Lizarraga MD Referring Provider Active S tart: September 11, 2024 End: September 11, 2024 Team Status: Inactive Member Role Status Dates Lynette Burton , WIRE STRAIGHTENER-C Primary Care Provider Active Start: September 14, 2024 End: September 27, 2024 EZRA Rincon Attending Provider Active Star t: September 14, 2024 End: September 27, 2024 Mame Jacob NP, WIRE STRAIGHTENER-C Referring Provider Active S tart: September 14, 2024 End: September 27, 2024 Team Status: Active Member Role Status Dates Lynette Burton NP-C Primary Care Provider Active Start: September 14, 2024 EZRA Rincon Attending Provider Active Star t: September 14, 2024 EZRA Rincon Other Provider Active Start: A pri2024 Mame Jacob NP, WIRE STRAIGHTENER-C Referring Provider Active S tart: September 14, [...] End: September 27, 2024 Lou Burton NP, WIRE STRAIGHTENER-C Other Provider Active S tart: September 14, [...] Start: Bharathi giordano 2024 Mame Jacob NP, WIRE STRAIGHTENER-C Referring Provider Active S tart: October 05, [...] End: October 05, 2024 Lou Burton NP, WIRE STRAIGHTENER-C Other Provider Active S tart: October 05, 2024 End: October 05, 2024 Lynette Burton WIRE STRAIGHTENER-C Primary Care Provider Active Start: October 05, 2024 End: October 05, 2024 Team Status: Inactive Member Role Status Dates Lynette Burton WIRE STRAIGHTENER-C Primary Care Provider Active Start: October 26, 2024 End: October 26, 2024 EZRA Rincon Attending Provider Active Star t: October 26, 2024 End: October 26, 2024 Mame Jacob WIRE STRAIGHTENER, WIRE STRAIGHTENER-C Referring Provider Active S tart: October 26, 2024 End: October 26, 2024 Team Status: Active Member Role Status Dates Lynette Burton WIRE STRAIGHTENER-C Primary Care Provider Active Start: October 26, 2024 EZRA Rincon Attending Provider Active Star t: October 26, 2024 EZRA Rincon Other Provider Active Start: M 2024 Mame Jacob WIRE STRAIGHTENER, WIRE STRAIGHTENER-C Referring Provider Active S tart: October 26, 2024 Team Status: Inactive Member Role Status Dates Lynette Burton WIRE STRAIGHTENER-C Primary Care Provider Active Start: November 02, [...] PA, PA Other Provider Active Lou Burton WIRE STRAIGHTENER, WIRE STRAIGHTENER-C Other Provider Active Team Status: Inactive Member Role Status Dates Brook Gage PA, PA Attending Provider, Referr ing Provider Active Dr. Karissa Madrid DO Primary Care Provider Active Team Status: Inactive Member Role Status Dates Dr. Michaela Mcfadden , DO Family Provider Active Dr. Anupam Lizarraga MD Attending Provider, Referring Pro vider Active Brook Gage PA, PA Other Provider Active Lou Burton WIRE STRAIGHTENER, WIRE STRAIGHTENER-C Other Provider Active Dr. Karissa Madrid DO [...] PA, PA Other Provider Active Lou Burton WIRE STRAIGHTENER, WIRE STRAIGHTENER-C Other Provider Active Dr. Karissa Madrid DO [...] Active Member Role Status Dates Lynette Burton WIRE STRAIGHTENER-C Primary Care Provider Active Start: May 05, 2024 EZRA Rincon Attending Provider Active Star t: May 05, 2024 EZRA Rincon Other Provider Active Start: 2023 Mame Jacob NP, WIRE STRAIGHTENER-C Referring Provider Active S tart: May 05, 2024 Team Status: Active Member Role Status Dates Lynette Burton NP-C Primary Care Provider Active Start: May 11, 2024 EZRA Rincon Attending Provider Active Star t: May 11, 2024 EZRA Rincon Other Provider Active Start: 2023 Mame Jacob WIRE STRAIGHTENER, WIRE STRAIGHTENER-C Referring Provider Active S tart: May 11, [...] End: May 18, 2024 Lou Burton NP, WIRE STRAIGHTENER-C Other Provider Active S tart: May 18, [...] End: May 30, 2024 Mame Jacob NP, WIRE STRAIGHTENER-C Referring Provider Active S tart: May 18, 2024 End: May 30, 2024 Team Status: Active Member Role Status Dates Lynette Burton NP-C Primary Care Provider Active Start: May 18, 2024 EZRA Rincon Attending Provider Active Star t: May 18, 2024 EZRA Rincon Other Provider Active Start: 2023 Mame Jacob WIRE STRAIGHTENER, WIRE STRAIGHTENER-C Referring Provider Active S tart: May 18, 2024 Team Status: Active Member Role Status Dates Lynette Burton NP-C Primary Care Provider Active Start: June 01, 2024 EZRA Rincon Attending Provider Active Star t: June 01, 2024 EZRA Rincon Other Provider Active Start: J anuary 2024 Mame Jacob NP, WIRE STRAIGHTENER-C Referring Provider Active S tart: June 01, [...] End: June 30, 2024 Mame Jacob NP, WIRE STRAIGHTENER-C Referring Provider Active S tart: June 22, 2024 End: June 30, 2024 Team Status: Active Member Role Status Dates Lynette Burton NP-C Primary Care Provider Active Start: June 22, 2024 EZRA Rincon Attending Provider Active Star t: June 22, 2024 EZRA Rincon Other Provider Active Start: J anuary 2024 Mame Jacob NP, WIRE STRAIGHTENER-C Referring Provider Active S tart: June 22, [...] End: June 30, 2024 Lou Burton NP, WIRE STRAIGHTENER-C Other Provider Active S tart: June 30, 2024 End: June 30, 2024 Lynette Micheal , WIRE STRAIGHTENER-C Primary Care Provider Active Start: June 30, 2024 End: June 30, 2024 Team Status: Active Member Role Status Dates Lynette Burton , WIRE STRAIGHTENER-C Primary Care Provider Active Start: August 17, 2024 EZRA Rincon Attending Provider Active Star t: August 17, 2024 Mame Jacob WIRE STRAIGHTENER, WIRE STRAIGHTENER-C Referring Provider Active S tart: August 17, [...] Start: October 05, 2024 Lou Burton NP, WIRE STRAIGHTENER-C Other Provider Active S tart: October 05, 2024 Lynettetom Burton , WIRE STRAIGHTENER-C Primary Care Provider Active Start: October 05, 2024 Team Status: Inactive Member Role Status Dates Lynettetom Burton , WIRE STRAIGHTENER-C Primary Care Provider Active Start: November 03, [...] Start: November 06, 2024 Lou Burton NP, WIRE STRAIGHTENER-C Other Provider Active S tart: November 06, 2024 Lynette Burton , WIRE STRAIGHTENER-C Primary Care Provider Active Start: November 06, 2024 Team Status: Active Member Role Status Dates Lynettetom Burton , WIRE STRAIGHTENER-C Primary Care Provider Active Start: November 06, [...] BE BASED ON THE PRIMARY CLINICAL RECORDS. [facility] [employer] [facility]. provides no warranty or guarantee of the accuracy or completeness of information in this document.
[2024-11-07] MEDS: Pantoprazole Sodium 40 MG in 0.9% Normal Saline (100mL MB+) 100 ML 330 MG IV ×3 (01:19→21:46)
[2024-11-07] MEDS: 0.9% Normal Saline (1000mL) 1,000 ML 125 ML IV ×3 (01:20→21:47)
--- NOTE | 2024-11-07 05:55 | EKG12_ITS ---
Test Reason : ABN LABS Blood Pressure : */* mmHG Vent. Rate : 77 BPM Atrial Rate : 77 BPM P-R Int : 202 ms QRS Dur : 140 ms QT Int : 402 ms P-R-T Axes : 83 -56 163 degrees QTcB Int : 454 ms Normal sinus rhythm Left axis deviation Non-specific intra-ventricular conduction block Minimal voltage criteria for LVH, may be normal variant ( Scooby product ) Cannot rule out Anteroseptal infarct , age undetermined T wave abnormality, consider lateral ischemia Abnormal ECG Confirmed by Juan F Burnette ([id number]), video editor KELBY GUTIERREZ ([id number]) on 11/07/2024 11:13:59 AM Referred By: FRANK Confirmed By: Juan F Burnette
[2024-11-07 06:19] LABS: Hematocrit 24.9 % (37-47); Hemoglobin 8.3 g/dL (12.0-15.0); Mean Corp Hgb Conc 33.3 g/dL (32-36); Mean Corpuscular Hgb 31.3 pg (27.0-32.0); Mean Platelet Vol. 10.5 fl (6.2-12.0); POSITIVE MORPHOLOGY YES; Platelet Count 206 K/mm3 (150-450); RBC Distribution Width CV 21.1 % (11.6-14.6); RBC Distribution Width SD 68.7 fl (35.1-43.9); Red Blood Count 2.65 M/mm3 (4.2-5.4); White Blood Count 6.1 K/mm3 (4.4-11.0)
[2024-11-07 06:24] LABS: Scan Indicated on CBC? Y/N YES- FLAGS NOTED
[2024-11-07 06:29] LABS: International Normalized Ratio 1.3; Partial Thromboplast Time 24.1 Seconds (24.1-36.2); Prothrombin Time (Protime)PT. 16.3 SECONDS (11.7-14.9)
[2024-11-07 06:48] LABS: Anion Gap 8 (5-15); BUN 22 mg/dL (4-19); BUN/Creat Ratio 22.7 RATIO (10-20); Calcium,Total 8.3 mg/dL (7.6-11.0); Carbon Dioxide 24.2 mmol/L (21.0-32.0); Chloride 105 mmol/L (98-108); Creatinine, Serum 0.99 mg/dL (0.70-1.20); EST Glomerular Filtration Rate 59 (>60); Estimated Creatinine Clearance 40.44 ml/min (50-250); Glucose 98 mg/dL (70-99); Potassium 4.1 mmol/L (3.3-5.1); Sodium Level 137 mmol/L (133-145)
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
[2024-11-07] MEDS: Acetaminophen 325 MG Tablet 650 MG PO (18:39)
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
[2024-11-07] MEDS: 0.9% Saline Lock 10 ML Syringe IV (22:10)
[2024-11-08] VITALS (15 sets, daily range): BP systolic 110–159; BP diastolic 44–86; PULSE 70–108; RESP 14–20; TEMP 36.6–37.2; O2SAT 93–95; BMI 24.6
[2024-11-08] MEDS: 0.9% Normal Saline (1000mL) 1,000 ML 125 ML IV ×2 (05:28→13:57)
[2024-11-08 06:38] LABS: Absolute Lymphocyte Count 0.87 X10^3/uL (0.83-4.51); Absolute Neutrophil Count 3.1 X10^3/uL (2.0-7.7); Basophil# 0.05 X10^3/uL; Eosinophil# 0.23 X10^3/uL; Eosinophils% 4.5 % (0-5); Hemoglobin 8.2 g/dL (12.0-15.0); Lymphocyte # 0.87 X10^3/ul (0.83-4.51); Lymphocyte % 16.9 % (19-41); Mean Corp Hgb Conc 32.8 g/dL (32-36); Mean Corpuscular Hgb 30.9 pg (27.0-32.0); Mean Corpuscular Volume 94.3 fL (81-99); Mean Platelet Vol. 9.6 fl (6.2-12.0); Monocyte# 0.74 X10^3/uL; Monocyte% 14.4 % (0-10); Neutrophil # 3.07 X10^3/uL (2.7-7.7); Neutrophil % 59.7 % (47-70); POSITIVE MORPHOLOGY YES; Platelet Count 221 K/mm3 (150-450); RBC Distribution Width CV 21.2 % (11.6-14.6); RBC Distribution Width SD 71.7 fl (35.1-43.9); Red Blood Count 2.65 M/mm3 (4.2-5.4); White Blood Count 5.1 K/mm3 (4.4-11.0)
[2024-11-08 06:43] LABS: Differential Indicated SCAN CRITERIA MET
[2024-11-08 07:32] LABS: Anisocytosis 1+
--- NOTE | 2024-11-08 09:40 | CASEMGMT ---
Discharge Planning A list of HH providers including quality and resource use data and consistent with the patient's preferred geographic region, medical needs, and insurance network was created in [employer].? This list was provided to the RN NÉSTOR. Nieves Vazquez, Discharge Planning Asst.
[2024-11-08] MEDS: Pantoprazole Sodium 40 MG in 0.9% Normal Saline (100mL MB+) 100 ML 330 MG IV (09:51)
--- NOTE | 2024-11-08 10:15 | CASEMGMT ---
PATRICIA PALM was informed Pt interested in [facility] services. PATRICIA PALM into pt room, provided list of [facility] agencies for pt and family to review. Family questioning if EGD is medically necessary. PATRICIA PALM spoke with RN, she already contacted [employer] Making [employer] Operator to come speak with family about procedure. He will be up to speak with family before procedure to discuss with pt and family.
--- NOTE | 2024-11-08 10:29 | CASEMGMT ---
PATRICIA PALM into pt room to notify doctor will be up to speak with them as soon as he can. Family expressed frustration with waiting and wanting to take pt home. PATRICIA PALM asked if family would like to leave AMA, family said no. Family did not know what [facility] agency they want to go with yet. PATRICIA PALM will follow up with family later.
--- NOTE | 2024-11-08 12:24 | CASEMGMT ---
PATRICIA PALM into pt room, pt states at this time she does not want to set up HHC. They have the list this RN NÉSTOR provided to them and if they decide to set up HHC they will speak with their PCP about it. Pt denies any other DC needs at this time.
[2024-11-08] MEDS: Acetaminophen 325 MG Tablet 650 MG PO (14:05)
--- NOTE | 2024-11-08 15:27 | PRE.ANES_ITS ---
ASA Classification* ASA Classification ASA Classification: 3 Assessment & Plan Anesthesia* Anesthesia Assessment Anesthesia Assessment: Discussed sedation and/or anesthesia options, risks, benefits, and alternatives with patient/parents/legal guardian/POA. Questions invited. The patient/parents/legal guardian/POA seems to understand and agrees to proceed with anesthesia plan. Reviewed the physical assessment, medical history, allergy history and patient home medications list prior to surgery/procedure/anesthetic and documented any changes. Performed airway and anesthesia risk assessments. Anesthesia Type Anesthesia Type: MAC Anesthesia Focused Assessment* Temperature: 98.4 F Pulse Rate: 78 Blood Pressure: 159/86 Respiratory Rate: 16 Pulse Ox: 95 Airway Assessment Mouth opens: >3 cm Mallampati Score: II Comment: Pacemaker in place. Nonischemic cardiomyopathy. Chronic. Paroxysmal atrial fibrillation. Chronic. Labs Anesthesia Preop lab: CBC WBC 5.1 K/mm3 (4.4-11.0) 11/08/24 06:21 11/08/24 RBC 2.65 M/mm3 (4.2-5.4) L 11/08/24 06:21 11/08/24 Hgb 8.2 g/dL (12.0-15.0) L 11/08/24 06:21 11/08/24 Hct 25.0 % (37-47) L 11/08/24 06:21 11/08/24 Plt Count 221 K/mm3 (150-450) 11/08/24 06:21 11/08/24 CHEMISTRY Potassium 4.1 mmol/L (3.3-5.1) 11/07/24 05:39 11/07/24 Sodium 137 mmol/L (133-145) 11/07/24 05:39 11/07/24 BUN 22 mg/dL (4-19) H 11/07/24 05:39 11/07/24 Creatinine 0.99 mg/dL (0.70-1.20) 11/07/24 05:39 11/07/24 Glucose 98 mg/dL (70-99) 11/07/24 05:39 11/07/24 TSH 0.92 uIU/mL (0.358-3.74) 01/24/19 09:08 COAG PT 16.3 SECONDS (11.7-14.9) H 11/07/24 05:39 10/29 Pre-Assessment Diagnosis/Proposed Procedure Planned Operative Procedure(s): EGD Anesthesia History 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 When Was Last Pacemaker Check 11/08/24 04:08 QUESTION #4 FULL TEXT: You/Your Family Experience fever (hyperthermia) with Anesthesia Last Oral Intake Last Oral intake: Last Oral Intake NPO since 00:00 11/08/24 14:19 Meds taken in AM with sips of water? Meds patient instructed to take am of surgery PONV PONV - venereal disease investigator: PONV - venereal disease investigator Female HX of Motion Sickness HX of N/V After Surgery Non-Smoker Duration of Surgery greater than 60 minutes Number of Risk Factors PONV Score Height & Weight Height & Weight: Anesthesia: Height & Weight Height 5 ft 4 in 11/08/24 14:19 Weight: 65.1 kg 11/08/24 14:19 Body Mass Index (BMI) 24.6 11/08/24 14:19 Respiratory Assessment Respiratory Assessment - venereal disease investigator: Respiratory Tract Infection Hx - venereal disease investigator Hx Respiratory Tract Infection No 11/08/24 04:08 STOP Sleep Apnea STOP Sleep Apnea - venereal disease investigator: STOP Sleep Apnea - venereal disease investigator Hx Hypertension No 11/07/24 13:50 Hx Sleep Apnea No 11/06/24 18:05 CPAP BIPAP Do you snore loudly (louder No 11/06/24 18:05 than talking or can be heard Do you often feel tired/ No 11/06/24 18:05 fatigued/ sleepy during daytime? Has anyone observed you stop No 11/06/24 18:05 breathing during sleep? STOP Results Negative 11/06/24 18:05 QUESTION #5 FULL TEXT : Do you snore loudly (louder than talking or can be heard through closed doors)? 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 Specify any problems Hx of Preganancy in last 3 N/A 11/06/24 18:05 Months Nurse Filling Out Transfusion AHAGGERTY 11/06/24 18:05 & Questions: Date: 11/06/24 11/06/24 18:05 Time: 18:12 11/06/24 18:05 Patient unable to answer at this time (ie. confused, unrespo /Reproduction History /Reproductive History - venereal disease investigator: /Reproductive Hx- venereal disease investigator Hx Now No 11/08/24 04:08 Gestational Age (in weeks): EDC: Hx Hx Para Hx Section SAB No 11/08/24 04:08 Active Medications Active Medications: Current Medications Generic Name Dose Route Start Last Admin Trade Name Freq PRN Reason Stop Dose Admin Acetaminophen 650 mg 11/06/24 18:30 11/08/24 14:05 Acetaminophen 325 Mg Tablet PO 650 mg Q6H PRN PRN Administration Pain 1-10 Or Fever>100.7 Calamine/Phenol 1 applic 11/08/24 10:00 11/08/24 10:46 Menthol/Lanolin/Calamine/Znox 113 Gm Tube TOPICAL Not Given BID REPLACED BY [facility] Protocol Pantoprazole Sodium 40 mg/ 100 mls @ 330 mls/hr 11/06/24 22:00 11/08/24 10:15 Sodium Chloride IV Infused Q12 JULIUS Infusion Sodium Chloride 1,000 mls @ 125 mls/hr 11/07/24 00:40 11/08/24 15:22 IV 0 mls/hr .Q8H JULIUS Infusion Lactated Ringer's 1,000 mls @ 15 mls/hr 11/08/24 15:30 IV .Q48H JULIUS Melatonin 3 mg 11/06/24 22:00 Melatonin 3 Mg Tablet PO QHS PRN PRN INSOMNIA Ondansetron HCl 4 mg 11/06/24 18:30 Ondansetron 4 Mg/2 Ml Vial IV Q8H PRN PRN NAUSEA/VOMITING Sodium Chloride 10 - 40 ml 11/06/24 18:09 11/07/24 22:10 0.9% Saline Lock 10 Ml Syringe IV 10 ml UD PRN Administration SALINE FLUSH PFSH Medical History Mobitz type 2 second degree atrioventricular block Sick sinus syndrome due to SA node dysfunction Chronic systolic (congestive) heart failure Paroxysmal atrial fibrillation Sinoatrial node dysfunction FH: sudden cardiac (SCD) Nonischemic cardiomyopathy Elevated troponin Acute calculous cholecystitis Home Medications ?Medication ?Instructions ?Recorded ?Last Taken ?Type furosemide 20 mg tablet 20 mg PO QAM #90 tabs 11/06/24 Rx metoprolol succinate 50 mg 50 mg PO QDAY #90 tabs 08/2211/06/24 Rx tablet,extended release 24 hr ramipril 2.5 mg capsule 2.5 mg PO DAILY #90 caps 08/2211/06/24 Rx warfarin 2 mg tablet 2 mg PO .COMPLEX #90 tabs 11/01/24 Rx warfarin 5 mg tablet 5 mg PO DAILY #90 TABLETS 11/02/24 Rx ondansetron 4 mg disintegrating 4 mg PO TID PRN nausea and 11/03/24 Unknown Rx tablet vomiting #21 tabs Allergy/AdvReac Type Severity Reaction Status Date / Time amoxicillin (From Augmentin) Allergy Rash Verified 11/06/24 13:31 clavulanic acid (From Allergy Rash Verified 11/06/24 13:31 Augmentin) Family History Brother Sudden cardiac Brother Myocardial infarction, Onset Age: 40 Heart disease Sister Hypertension Surgical History History of left heart catheterization (05/27/16) Presence of permanent cardiac pacemaker (2008) Social History Smoking Status: Never smoker alcohol intake: never substance use type: does not use caffeine: Yes Type: coffee what type of physical activity do you participate in: bicycling frequency: daily duration: < 15 minutes/day seatbelt use: always do you feel safe at home: Yes Review of Systems (Anesthesia) ROS Narrative System reviewed and no additional complaints, except as documented.
--- NOTE | 2024-11-08 16:20 | PCM.PN.BLA ---
Progress Note Patient comes in with GI bleed. Hemoglobin dropped down to 6.5. She was transfused 2 units packed red blood cells and goes back up to 8.4. Physical Exam Const alert, oriented x3, no apparent distress and healthy appearing General Appearance: cooperative GI normal to inspection, nondistended, normoactive bowel sounds, soft to palpation, non-tender and non-distended Percussion: normal to percussion Rectal Exam: deferred Assessment & Plan Assessment/Plan (1) Acute on chronic blood loss anemia: (2) GI bleed: PLAN: Patient will undergo an upper endoscopy. She was explained alternatives, risk, benefits include not withstanding bleeding, infection, sepsis, perforation, need for more urgent surgery and . She will have an ASA of 3. Visit Charges Inpatient E&M: 78072 Subs Hosp L2
--- NOTE | 2024-11-08 16:30 | EGD_PTH ---
PATIENT: JC GROSS LOC: [facility] U#:[id number] AGE/SX: 79/F ROOM: [facility] RE11/06/[address]: Dr. Salazar Rao DO : 1945 BED: 1 DIS: 11/08/2024 SPEC #: [id number] RECD: 11/09/24 07:37 STATUS: LIAM REKeshia #: [id number] TRACI: 11/08/24 16:[address]: Ra Huehsaan DEPT: SURGICAL PATHOLOGY RECD BY: Jose Alex ENTERED: 11/09/24 12:05 SP TYPE: EGD BIOPSY OT DR: DO Dr. Salazar Ray DO Rachel Edgar, EPIC PROFESSIONAL-C Tissues: A - Gastric mucous membrane Procedures: Immunohistochemical Stains Surgery Specimen Level IV HEADER OPERATION: EGD with biopsy and electrohemostasis PRE-OP DIAGNOSIS: Acute on chronic blood loss anemia, GI bleed TISSUE SUBMITTED: A- Gastric body biopsy MICROSCOPIC DIAGNOSIS A. Stomach, body, biopsy: Oxyntic mucosa with slight chronic inflammation. IHC negative for H.pylori organisms. MICROSCOPIC DESCRIPTION Slides are reviewed. All matched controls reacted appropriately. These tests were developed and their performance characteristics determined by [facility]. They may not have been cleared or approved by the U.S. Food and Drug Administration. The FDA has determined that such clearance or approval is not necessary. The above immunohistochemical/dualISH markers are viewed by the Pathologist. GROSS DESCRIPTION A. Received in formalin labeled with the patient's name and date of . Designated as gastric body BX for H. pylori and path are 3 chen tissue fragments, 0.3 cm to 0.4 cm. Entirely submitted in 1 cassette. [facility] [place] 11/09/2024 CPT:03527,[id number]
--- NOTE | 2024-11-08 16:46 | PCM.POST.ANE ---
Anesthesia: Postop Eval I Current Vital Signs Temperature: 98.2 F Pulse Rate: 108 Blood Pressure: 133/68 Respiratory Rate: 20 Pulse Ox: 93 Oxygen Delivery Method: Room Air Assessment Airway patent: Yes Spontaneous unlabored respirations: Yes Mental status: Awake and Calm nausea: No Vomiting: No Anesthesia Complication: No Fluid Hydration Crystalloid volume administer (ml): 100 Total IV fluid infused: 100 Progress Note Anesthesia document: Postop Eval 1 completed: Yes
--- NOTE | 2024-11-08 16:52 | POSTOPAN2_ITS ---
Anesthesia Postop Eval I Sum Postop Eval Completion status Anesthesia document: Postop Eval 1 completed: Yes Anesthesia Postop Eval I Summary Anesthesia Postop Eval I Summary: Anesthesia Postop Eval I: Assessment Summary Airway patent Yes 11/08/24 16:47 CAMPAIGN [email or web address] Spontaneous unlabored Yes 11/08/24 16:47 CAMPAIGN [email or web address] respirations Mental status Awake,Calm 11/08/24 16:47 CAMPAIGN WORKER.[email or web address] nausea No 11/08/24 16:47 CAMPAIGN WORKER.JDEF Vomiting No 11/08/24 16:47 CAMPAIGN WORKER.[email or web address] Anesthesia Postop Eval I: Fluid Summary Crystalloid volume administer 100 11/08/24 16:47 CAMPAIGN WORKER.JDEF (ml) Colloids volume administered ( ml) Blood Product volume administered (ml) Total IV fluid infused 100 11/08/24 16:47 CAMPAIGN WORKER.[email or web address] Anesthesia Postop Eval I: Summary Notes Anesthesia Complication No 11/08/24 16:47 CAMPAIGN WORKER.JDEF Anesthesia Complication Comment: Post-operative progress note Anesthesia: Postop Eval II Evaluation Mental status: Awake Pain Level: 0 nausea: No Vomiting: No
--- NOTE | 2024-11-08 16:52 | PCM.POSTANE2 ---
Anesthesia Postop Eval I Sum Postop Eval Completion status Anesthesia document: Postop Eval 1 completed: Yes Anesthesia Postop Eval I Summary Anesthesia Postop Eval I Summary: Anesthesia Postop Eval I: Assessment Summary Airway patent Yes 11/08/24 16:47 DIRECTOR GLOBAL DEVELOPMENT.[email or web address] Spontaneous unlabored Yes 11/08/24 16:47 DIRECTOR GLOBAL DEVELOPMENT.JDEF respirations Mental status Awake,Calm 11/08/24 16:47 DIRECTOR GLOBAL DEVELOPMENT.JDEF nausea No 11/08/24 16:47 DIRECTOR GLOBAL DEVELOPMENT.JDEF Vomiting No 11/08/24 16:47 DIRECTOR GLOBAL DEVELOPMENT.JDEF Anesthesia Postop Eval I: Fluid Summary Crystalloid volume administer 100 11/08/24 16:47 DIRECTOR GLOBAL DEVELOPMENT.JDEF (ml) Colloids volume administered ( ml) Blood Product volume administered (ml) Total IV fluid infused 100 11/08/24 16:47 DIRECTOR GLOBAL DEVELOPMENT.JDEF Anesthesia Postop Eval I: Summary Notes Anesthesia Complication No 11/08/24 16:47 DIRECTOR GLOBAL DEVELOPMENT.JDEF Anesthesia Complication Comment: Post-operative progress note Anesthesia: Postop Eval II Evaluation Mental status: Awake Pain Level: 0 nausea: No Vomiting: No
--- NOTE | 2024-11-08 17:35 | OP.EGD_ITS ---
Patient Name: Jhoana Nieves Procedure Date: 11/08/2024 4:21 PM Date of : 1945 Age: 79 Procedure: Upper GI endoscopy Indications: Iron deficiency anemia, Melena, Active gastrointestinal bleeding, Gastrointestinal bleeding of unknown origin Providers: Yoshi Swann DO Medicines: Monitored Anesthesia Care Patient Profile: This is a 79 year old female. Refer to note in patient chart for documentation of history and physical. Complications: No immediate complications. Procedure: Pre-Anesthesia Assessment: - Prior to the procedure, a History and Physical was performed, and patient medications and allergies were reviewed. The patient is competent. The risks and benefits of the procedure and the sedation options and risks were discussed with the patient. All questions were answered and informed consent was obtained. Patient identification and proposed procedure were verified by the physician in the pre-procedure area. Mental Status Examination: alert and oriented. Airway Examination: normal oropharyngeal airway and neck mobility. Respiratory Examination: clear to auscultation. CV Examination: normal. ASA Grade Assessment: II - A patient with mild systemic disease. After reviewing the risks and benefits, the patient was deemed in satisfactory condition to undergo the procedure. The anesthesia plan was to use monitored anesthesia care (MAC). Immediately prior to administration of medications, the patient was re-assessed for adequacy to receive sedatives. The heart rate, respiratory rate, oxygen saturations, blood pressure, adequacy of pulmonary ventilation, and response to care were monitored throughout the procedure. The physical status of the patient was re-assessed after the procedure. After obtaining informed consent, the endoscope was passed under direct vision. Throughout the procedure, the patient's blood pressure, pulse, and oxygen saturations were monitored continuously. The gastroscope was introduced through the mouth, and advanced to the fourth part of the duodenum. Small bowel enteroscopy was deemed necessary. The upper GI endoscopy was accomplished without difficulty. The patient tolerated the procedure well. Scope In: 4:33:56 PM Scope Out: 4:37:58 PM Total Procedure Duration Time 0 hours 4 minutes 2 seconds Findings: A low-grade of narrowing Schatzki ring was found at the cricopharyngeus. Multiple areas of ectopic gastric mucosa were found in the upper third of the esophagus, 20 cm from the incisors. Red blood was found in the gastric body. Two non-bleeding cratered gastric ulcers with pigmented material were found in the gastric body. The largest lesion was 6 mm in largest dimension. Coagulation for hemostasis using heater probe was successful. Estimated blood loss was minimal. A single 5 mm angiodysplastic lesion with no bleeding was found on the lesser curvature of the stomach. Coagulation for destruction of remaining portion of lesion using heater probe was successful. Patchy mild inflammation characterized by congestion (edema) was found in the gastric body. Biopsies were taken with a cold forceps for histology. Verification of patient identification for the specimen was done. No gross lesions were noted in the entire examined duodenum. Impression: - Low-grade of narrowing Schatzki ring. - Ectopic gastric mucosa in the upper third of the esophagus. - No gross lesions in the stomach. - Blood in the duodenal bulb, in the second portion of the duodenum and in the third portion of the duodenum. - Oozing duodenal ulcers with a visible vessel. Injected. Treated with a heater probe. hemostatic spray applied. - Non-bleeding duodenal ulcers with no stigmata of bleeding. Treated with a heater probe. - No specimens collected. Recommendation: - Return patient to hospital [facility] for ongoing care. - Full liquid diet. - Continue present medications. - Use Protonix (pantoprazole) 40 mg PO BID. - Use sucralfate tablets 1 gram PO QID for 8 weeks. Procedure Code(s): --- Professional --- 37416, Small intestinal endoscopy, enteroscopy beyond second portion of duodenum, not including ileum; with ablation of tumor(s), polyp(s), or other lesion(s) not amenable to removal by hot biopsy forceps, bipolar cautery or snare technique 08458, 51, Small intestinal endoscopy, enteroscopy beyond second portion of duodenum, not including ileum; with control of bleeding (eg, injection, bipolar cautery, unipolar cautery, laser, heater probe, stapler, plasma etl analyst) 80501, Small intestinal endoscopy, enteroscopy beyond second portion of duodenum, not including ileum; with biopsy, single or multiple CPT copyright 2021 [employer]. All rights reserved. The codes documented in this report are preliminary and upon consultant intern review may be revised to meet current compliance requirements. Yoshi Swann DO 11/08/2024 5:35:23 PM This report has been signed electronically. Number of Addenda: 0 Note Initiated On: 11/08/2024 4:21 PM
--- NOTE | 2024-11-08 17:35 | OP.CCLET_ITS ---
11/08/2024 Josh Macias Re : Upper GI endoscopy procedure for Jhoana Nieves Dear Micheal This procedure was performed on Friday, November 08, 2024. My impressions and recommendations are as follows: Impressions : - Low-grade of narrowing Schatzki ring. - Ectopic gastric mucosa in the upper third of the esophagus. - No gross lesions in the stomach. - Blood in the duodenal bulb, in the second portion of the duodenum and in the third portion of the duodenum. - Oozing duodenal ulcers with a visible vessel. Injected. Treated with a heater probe. hemostatic spray applied. - Non-bleeding duodenal ulcers with no stigmata of bleeding. Treated with a heater probe. - No specimens collected. Recommendations : - Return patient to [facility] for ongoing care. - Full liquid diet. - Continue present medications. - Use Protonix (pantoprazole) 40 mg PO BID. - Use sucralfate tablets 1 gram PO QID for 8 weeks. My findings are described in the full procedure note, which is enclosed. If I can be of further assistance, please feel free to contact me at . Sincerely, Yoshi Swann, 11/08/2024 5:35:23 PM This report has been signed electronically.
--- NOTE | 2024-11-08 17:51 | DCINST_ITS ---
Discharge Instructions Diet Discharge Diet: - (Clear liquids tonight, advance diet to regular tomorrow) DC O2, CPAP, BIPAP needs Home O2 Discharge instructions: No Dressing / Incision Discharge Activity: Return to Normal Activity Weight Bearing Status: Full weight bearing Follow Up Care Test Results: Test results from this visit will be discussed in further detail at your follow- up appointment, if applicable. Discharge Plan Admission Admit Date/Time: 11/06/24 16:23 Primary Reason for Your Visit: Upper gastrointestinal bleed secondary to gastric ulcer and AVM Attending Provider: Salazar Rao Primary Care Provider: Lynette Burton Consulting Providers: Shelton Parra Instructions Additional Instructions / Restrictions: Do not resume your warfarin until your doctor says it is okay next week Discharge Orders/Prescriptions Prescriptions: New acetaminophen 325 mg Tablet 650 mg PO Q6H PRN PRN (Reason: Pain 1-10 Or Fever>100.7) Qty: 0 0RF pantoprazole [Protonix] 40 mg tablet,delayed release (DR/EC) 40 mg PO BID Qty: 60 0RF Rx Instructions: Start on 11/09/2024 Continued metoprolol succinate 50 mg tablet extended release 24 hr 50 mg PO QDAY Qty: 90 3RF ramipril 2.5 mg capsule 2.5 mg PO DAILY Qty: 90 3RF furosemide 20 mg tablet 20 mg PO QAM Qty: 90 3RF ondansetron 4 mg tablet,disintegrating 4 mg PO TID PRN (Reason: nausea and vomiting) Qty: 21 0RF Discontinued warfarin 2 mg tablet 2 mg PO .COMPLEX Qty: 90 3RF Protocol: Dose Management Condition: Wednesday Dose/Route: 0 mg Instruction: 0 tablets Condition: Wednesday Dose/Route: 0 mg Instruction: 0 tablets Condition: Wednesday Dose/Route: 0 mg Instruction: 0 tablets Condition: Wednesday Dose/Route: 0 mg Instruction: 0 tablets Condition: Dose/Route: 0 mg Instruction: 0 tablets Condition: Wednesday Dose/Route: 0 mg Instruction: 0 tablets Condition: Wednesday Dose/Route: 0 mg Instruction: 0 tablets Protocol Text: Adjustment Start Date: Wednesday11/06/24 INR Value: 1.5 INR Date: 11/06/24 Recheck Date: 11/13/24 Rx Instructions: 2 mg PO take with a 5mg tablet every day= 7mg except on Wednesday and Wednesday take 5mg tab; or as directed warfarin 5 mg tablet 5 mg PO DAILY Qty: 90 3RF Protocol: Dose Management Condition: Wednesday Dose/Route: 0 mg Instruction: 0 tablets Condition: Wednesday Dose/Route: 0 mg Instruction: 0 tablets Condition: Wednesday Dose/Route: 0 mg Instruction: 0 tablets Condition: Wednesday Dose/Route: 0 mg Instruction: 0 tablets Condition: Dose/Route: 0 mg Instruction: 0 tablets Condition: Wednesday Dose/Route: 0 mg Instruction: 0 tablets Condition: Wednesday Dose/Route: 0 mg Instruction: 0 tablets Protocol Text: Adjustment Start Date: Wednesday11/06/24 INR Value: 1.5 INR Date: 11/06/24 Recheck Date: 11/13/24 Rx Instructions: Take 5mg daily and with a 2mg to equal 7mg Sun, Wed, , , and take a 5mg tablet by itself on , Wed: OR as directed Referrals / Follow Up: Lynette Burton NP-C [Primary Care Provider] - See Referral Note (Next Wednesday or Wednesday for suture removal) Disposition Disposition (needs filled in before D/C Order can be placed): Home, Self Care
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
[2024-11-08] MEDS: Pantoprazole Sodium 40 MG Tablet PO (18:34)
--- NOTE | 2024-11-09 08:26 | CASEMGMT ---
PATRICIA PALM NOTE: VM received from Sindy [facility] inquiring if pt has been discharged. She was made aware pt was dc'd home yesterday. Ben CHUNG RN CM
== END 2024-11-08 18:54 | disposition home or self-care (01) | DRG 378 ==
LOC: ED 15:19 → PCU 16:40
PROVIDERS: Anesthesiology; Internal Medicine Gastroenterology; Admitting Provider Hospitalist; Emergency Provider Emergency Medicine; PCP Nurse Practitioner Family; Visit Provider Internal Medicine
PROC: 0DJ08ZZ Inspection of Upper Intestinal Tract, Via Natural or Artificial Opening Endoscopic (ICD-10-PCS; CPT 43235; principal; 2024-11-08 16:25)
DX: K26.4 Chronic or unspecified duodenal ulcer with hemorrhage (principal); D62 Acute posthemorrhagic anemia; D68.32 Hemorrhagic disorder due to extrinsic circulating anticoagulants; I50.22 Chronic systolic (congestive) heart failure; I42.8 Other cardiomyopathies; I11.0 Hypertensive heart disease with heart failure; I49.5 Sick sinus syndrome; I48.0 Paroxysmal atrial fibrillation; K31.819 Angiodysplasia of stomach and duodenum without bleeding; R79.1 Abnormal coagulation profile; T45.515A Adverse effect of anticoagulants, initial encounter; S02.2XXD Fracture of nasal bones, subsequent encounter for fracture with routine healing; S42.101D Fracture of unspecified part of scapula, right shoulder, subsequent encounter for fracture with routine healing; S42.201D Unspecified fracture of upper end of right humerus, subsequent encounter for fracture with routine healing; V28.4 Motorcycle driver injured in noncollision transport accident in traffic accident; Z79.891 Long term (current) use of opiate analgesic; Z79.01 Long term (current) use of anticoagulants; Z79.899 Other long term (current) drug therapy; Z95.0 Presence of cardiac pacemaker
CPT/HCPCS: 36415; 80048; 82274; 85025; 85027; 85610; 85730; 86850; 86900; 86901; 88305; 88342; 93005; 94668; 97162; 97166; 99285; C1889; P9016; A4216; J2405

== ENCOUNTER → 2024-11-14 | Outpatient (CLI) | payer MEDICARE, SELFPAY ==
[2024-11-14 12:00] LABS: Absolute Lymphocyte Count 1.22 X10^3/uL (0.83-4.51); Absolute Neutrophil Count 4.1 X10^3/uL (2.0-7.7); Basophil# 0.04 X10^3/uL; Basophil% 0.7 % (0-1); Eosinophil# 0.19 X10^3/uL; Eosinophils% 3.1 % (0-5); Hematocrit 29.6 % (37-47); Hemoglobin 9.2 g/dL (12.0-15.0); Lymphocyte # 1.22 X10^3/ul (0.83-4.51); Mean Corp Hgb Conc 31.1 g/dL (32-36); Mean Corpuscular Hgb 30.8 pg (27.0-32.0); Mean Platelet Vol. 10.3 fl (6.2-12.0); Monocyte% 8.2 % (0-10); NRBC Flagged by Analyzer 0.3 % (0-5); Neutrophil # 4.12 X10^3/uL (2.7-7.7); Neutrophil % 67.5 % (47-70); POSITIVE MORPHOLOGY YES; Platelet Count 247 K/mm3 (150-450); RBC Distribution Width CV 20.5 % (11.6-14.6); RBC Distribution Width SD 72.1 fl (35.1-43.9); Red Blood Count 2.99 M/mm3 (4.2-5.4); White Blood Count 6.1 K/mm3 (4.4-11.0)
[2024-11-14 12:02] LABS: Differential Indicated SCAN CRITERIA MET
[2024-11-14 12:24] LABS: Anisocytosis 2+
== END | disposition home or self-care (01) ==
LOC: LAB 11:34
PROVIDERS: PCP Nurse Practitioner Family; Referring Provider Nurse Practitioner Family; Visit Provider Nurse Practitioner Family
DX: D64.9 Anemia, unspecified (principal)
CPT/HCPCS: 36415; 85025

== ENCOUNTER → 2024-11-29 | Outpatient (CLI) | payer MEDICARE, SELFPAY ==
--- NOTE | 2024-11-29 18:37 | CT_ITS ---
PROCEDURE: EXTREMITY UPPER WITHOUT CONTRA 11/29/2024 REASON FOR EXAM: RT SHOULDER- OTHER DISPLACED FX TECHNIQUE: EXTREMITY UPPER WITHOUT CONTRA Coronal and Sagittal reconstruction series were provided. One or more dose reduction techniques were used (e.g., Automated exposure control, adjustment of the mA and/or kV according to patient size, use of iterative reconstruction technique. RADIATION DOSE SUMMARY: CTDlvol: 25.1 mGy DLP: 622 mGycm COMPARISON: Right shoulder radiographs and CT chest on 11/02/2024 FINDINGS: There is a severely comminuted fracture of the right proximal humerus, including the head and neck, with involvement of the greater and lesser tubercles and intra-articular extension at the glenohumeral joint. There is impaction which is slightly increased in conspicuity from 11/02/2024 exams. Additionally, there is a mildly displaced fracture of the inferior rim of the glenoid, similar to prior. There is a shoulder joint effusion. There are few tiny pulmonary nodules in the right lung measuring up to 3 mm (series 2, image 40). Cardiac device leads partially imaged. CT/Extremity Upper without Contra IMPRESSION: 1. Severely comminuted fracture of the right proximal humerus with intra-artic ular extension. Impaction appears slightly increased compared to exams on 11/02/2024. Recommend Orthopedic surgery referr al if not already performed. 2. Mildly displaced fracture of the inferior rim of the glenoid. 3. Shoulder joint effusion. 4. Solid nodules in the right lung measuring up to [address] i n 12 months if patient is at high risk for malignancy per Fleischner society guidelines. Reading Location: [facility]
== END | disposition home or self-care (01) ==
PROVIDERS: PCP Nurse Practitioner Family; Referring Provider Physician Assistant Surgical; Visit Provider Physician Assistant Surgical
DX: S42.291A Other displaced fracture of upper end of right humerus, initial encounter for closed fracture (principal); S42.141A Displaced fracture of glenoid cavity of scapula, right shoulder, initial encounter for closed fracture
CPT/HCPCS: 73200

== ENCOUNTER → 2024-12-08 | Outpatient (CLI) | payer MEDICARE, SELFPAY ==
[2024-12-08 12:45] LABS: Hematocrit 31.6 % (37-47); Hemoglobin 9.6 g/dL (12.0-15.0); Immature Granulocytes Count 0.010 X10^3/uL (0.0-0.0); Mean Corp Hgb Conc 30.4 g/dL (32-36); Mean Corpuscular Volume 103.6 fL (81-99); Mean Platelet Vol. 10.7 fl (6.2-12.0); NRBC Flagged by Analyzer 0 % (0-5); POSITIVE MORPHOLOGY YES; Platelet Count 175 K/mm3 (150-450); RBC Distribution Width CV 21.0 % (11.6-14.6); RBC Distribution Width SD 81.1 fl (35.1-43.9); Red Blood Count 3.05 M/mm3 (4.2-5.4); White Blood Count 3.9 K/mm3 (4.4-11.0)
[2024-12-08 12:51] LABS: Differential Indicated SCAN CRITERIA MET
[2024-12-08 13:19] LABS: Acanthocytes 1+; Anisocytosis 1+; Tear Drop Cell 1+
[2024-12-08 13:22] LABS: Ferritin 638 ng/mL (22-378); Iron 93 ug/dL (50-170)
[2024-12-08 13:47] LABS: Cholesterol 157 mg/dL (<=200); Low Density Lipoprotein Calc. 70 mg/dL; Triglycerides 47 mg/dL; Very Low Density Lipoprotein 9 mg/dL (5-40); cholesterol:hdl ratio screen 2.02
[2024-12-08 13:48] LABS: AST(SGOT) 22 U/L (<=31); Alanine Aminotransfer ALT/SGPT < 5 U/L (<=34); Albumin, Serum 4.3 g/dL (3.4-4.8); Alkaline Phosphatase 86 U/L (35-104); Anion Gap 10 (5-15); BUN 21 mg/dL (4-19); BUN/Creat Ratio 20.4 RATIO (10-20); Calcium,Total 9.5 mg/dL (7.6-11.0); Carbon Dioxide 24.9 mmol/L (21.0-32.0); Chloride 105 mmol/L (98-108); Globulin 3.0 g/dL (2.2-4.2); Glucose 107 mg/dL (70-99); Potassium 3.8 mmol/L (3.3-5.1)
== END | disposition home or self-care (01) ==
LOC: BFHLAB 09:27
PROVIDERS: PCP Nurse Practitioner Family; Visit Provider Nurse Practitioner Family
DX: D50.9 Iron deficiency anemia, unspecified (principal); E78.5 Hyperlipidemia, unspecified; I10 Essential (primary) hypertension
CPT/HCPCS: 36415; 80053; 80061; 82728; 83540; 85025